=== PATIENT | female | born 1950 | race Caucasian/White ===

== ENCOUNTER 2016-04-21 08:47 | Inpatient (IN) | payer BC, MEDICARE ==
[~2016-04-21] VITALS: Ht 165.1 cm; Wt 92.0 kg
[2016-04-21] MEDS ORDERED: SOD CHLORIDE 0.9% 500 ML IV STA (09:07)
--- NOTE | 2016-04-21 09:35 | RADRPT ---
PROCEDURE: XR Chest. CLINICAL INDICATION: Chest pain TECHNIQUE: Single frontal view of the chest was obtained COMPARISON: 02/05/16 FINDINGS: The study is limited due to patient rotation. There is a tracheostomy tube in place. The heart is enlarged. The thoracic aorta is calcified. The lungs are clear. There is no pleural effusion or pneumothorax. RPTAT: AA IMPRESSION: Mild cardiomegaly. Calcified aorta consistent with atherosclerotic disease. Limited study. .Josh Beckford MD, MD Date Time Electronically viewed and signed by .Josh Beckford MD, on 04/21/2016 09:35 .S/
[2016-04-21 09:54] LABS: ALBUMIN 3.7 g/dl (3.3-4.9); CHLORIDE 95 mmol/L (97-110); POTASSIUM 5.2 mmol/L (3.5-5.1); SODIUM 138 mmol/L (135-144)
[2016-04-21 09:55] LABS: BASOPHIL # 0.1 10^3/ul (0.0-0.1); BASOPHILS % 0.7 % (0.0-2.0); EOSINOPHILS # 1.3 10^3/ul (0.0-0.5); EOSINOPHILS % 11.5 % (0.0-7.0); HEMATOCRIT 26.3 % (37.0-47.0); HEMOGLOBIN 8.9 g/dl (12.0-16.0); LYMPHOCYTES # 2.7 10^3/ul (0.8-2.9); LYMPHOCYTES % 24.2 % (15.0-51.0); MEAN CORPUSCULAR HEMOGLOBIN 31.6 pg (29.0-33.0); MEAN CORPUSCULAR HGB CONC 33.8 g/dl (32.0-37.0); MEAN CORPUSCULAR VOLUME 93.6 fl (82.0-101.0); MEAN PLATELET VOLUME 7.7 fl (7.4-10.4); MONOCYTE # 1.2 10^3/ul (0.3-0.9); MONOCYTES % 10.5 % (0.0-11.0); NEUTROPHIL # 5.9 10^3/ul (1.6-7.5); NEUTROPHILS % 53.1 % (39.0-77.0); PLATELET COUNT 345 10^3/UL (140-440); RED BLOOD COUNT 2.81 10^6/ul (4.20-5.40); RED CELL DISTRIBUTION WIDTH 20.9 % (11.5-14.5); UNCORRECTED WBC 11.1 10^3/ul (4.8-10.8); WHITE BLOOD COUNT 11.1 10^3/ul (4.8-10.8)
[2016-04-21 09:56] LABS: ANION GAP 15 (8-16); BILIRUBIN,INDIRECT 0.2 mg/dl (0-1.1); BILIRUBIN,TOTAL 0.2 mg/dl (0.2-1.3); CARBON DIOXIDE 33 mmol/L (21-31); CREATININE 1.26 mg/dl (0.44-1.00)
[2016-04-21 09:57] LABS: ALANINE AMINOTRANSFERASE 42 IU/L (13-69); ALBUMIN/GLOBULIN RATIO 1.15; ALKALINE PHOSPHATASE 71 IU/L (42-121); ASPARTATE AMINO TRANSFERASE 29 IU/L (15-46); BLOOD UREA NITROGEN 45 mg/dl (7-20); CALCIUM 9.6 mg/dl (8.4-10.2); GLUCOSE 125 mg/dl (70-220); INR 0.92; PROTIME 12.4 Sec (12.2-14.2); TOTAL PROTEIN 6.9 g/dl (6.1-8.1)
[2016-04-21 09:58] LABS: CONDITION 1; LH ANALYZER COMMENTS 1
[2016-04-21 10:09] LABS: TROPONIN-I < 0.012 ng/ml (0.00-0.12)
[2016-04-21 10:13] LABS: ADD UMIC NO; URINE BILIRUBIN (Dip) NEGATIVE (NEGATIVE); URINE BLOOD (Dip) NEGATIVE (NEGATIVE); URINE COLOR LT. YELLOW (YELLOW); URINE GLUCOSE (Dip) NEGATIVE (NEGATIVE); URINE KETONES (Dip) NEGATIVE (NEGATIVE); URINE LEUKOCYTE ESTERASE (Dip) NEGATIVE (NEGATIVE); URINE NITRITE (Dip) NEGATIVE (NEGATIVE); URINE TOTAL PROTEIN (Dip) NEGATIVE (NEGATIVE); URINE UROBILINOGEN (Dip) 0.2 E.U./dL (0.1-1.0)
[2016-04-21] MEDS ORDERED: CARV6.2579 GTB (10:24)
[2016-04-21] MEDS ORDERED: CLON0.5T4 GTB (10:30)
[2016-04-21] MEDS ORDERED: DOCU-159 GTB (10:33)
[2016-04-21] MEDS ORDERED: CLON-379 GTB (10:33)
[2016-04-21] MEDS ORDERED: IPRA3AMP INHALATION (10:34)
[2016-04-21] MEDS ORDERED: ENOX120D8 SQ (10:35)
[2016-04-21] MEDS ORDERED: FAMO20TA18 GTB (10:36)
[2016-04-21] MEDS ORDERED: [UNRECOGNIZED DRUG - CODE] TD (10:37)
[2016-04-21] MEDS ORDERED: UDFER GTB (10:38)
[2016-04-21] MEDS ORDERED: GLUC1VIA6 IJ (10:39)
[2016-04-21] MEDS ORDERED: NPH,100V SQ (10:42)
[2016-04-21] MEDS ORDERED: INSU100V3 IJ (10:43)
[2016-04-21] MEDS ORDERED: LACT1CAP57 GTB (10:44)
[2016-04-21] MEDS ORDERED: LANS30CA GTB (10:44)
[2016-04-21] MEDS ORDERED: LINA5TAB GTB (10:45)
[2016-04-21] MEDS ORDERED: LISI-313 GTB (10:46)
[2016-04-21] MEDS ORDERED: LORA1TAB GTB (10:46)
[2016-04-21] MEDS ORDERED: METF500T4 GTB (10:47)
[2016-04-21] MEDS ORDERED: METO10TA92 GTB (10:48)
[2016-04-21] MEDS ORDERED: MULT9LIQ4 GTB (10:50)
[2016-04-21] MEDS ORDERED: HYDR-902 GTB (10:53)
[2016-04-21] MEDS ORDERED: NITR0.4T6 SL (10:53)
[2016-04-21] MEDS ORDERED: CHLO473M4 MM (10:54)
[2016-04-21] MEDS ORDERED: QUET25TA33 GTB (10:54)
[2016-04-21] MEDS ORDERED: SPIR100T31 GTB (10:55)
--- NOTE | 2016-04-21 11:02 | ERA ---
ER Documentation Chief Complaint Date/Time DATE: 04/21/16 TIME: 10:53 Chief Complaint labwork request for transfusion HPI 65-year-old woman with multiple medical conditions brought in by EMS from group home facility for recent dehydration and worsening anemia, suspicion was for upper gastrointestinal bleeding as she does have a history of gastritis and gastroesophageal reflux disease. She has had no fevers or chills, no vomiting or diarrhea. HPI was limited as patient was nonverbal, supplemented by reviewing past medical records, reviewing correction records, speaking to EMS, and nursing staff ROS All systems reviewed and are negative except as per history of present illness. Medications Home Meds Reported Medications Nitroglycerin* (Nitroglycerin* SL) 0.4 Mg Tab.subl, 0.4 MG SL Q5MIN Y for CHEST PAIN, BOTTLE 04/21/16 Multivit &Minerals/Ferrous Fum (MULTIVITAMIN LIQUID) 9 Mg/15 Ml Liquid, 30 ML GTB DAILY 04/21/16 Metoclopramide* (Reglan*) 10 Mg Tablet, 10 MG GTB Q6 Y for NAUSEA AND/OR VOMITING, TAB 04/21/16 Metformin* (Glucophage*) 500 Mg Tab, 1000 MG GTB BID, #30 TAB 04/21/16 Lorazepam* (Lorazepam*) 1 Mg Tablet, 1 MG GTB Q2HWA Y for ANXIETY, #30 TAB 04/21/16 Lisinopril* (Lisinopril*) 5 Mg Tablet, 5 MG GTB DAILY, #30 TAB HOLD IF SBP<110 OR HR<60 04/21/16 Linagliptin (TRADJENTA) 5 Mg Tablet, 5 MG GTB DAILY, TAB 04/21/16 Lansoprazole* (Lansoprazole*) 30 Mg Capsule.dr, 30 MG GTB DAILY, CAP 04/21/16 Lactobacillus Rhamnosus* (Culturelle*) 1 Each Cap.sprink, 1 CAP GTB BID, CAP 04/21/16 Insulin Regular, Human (Humulin R) 100 Unit/1 Ml Vial, 0-12 UNIT IJ BID WITH MEALS, VIAL 04/21/16 Insulin NPH Human Isophane (Humulin N) 100 Unit/1 Ml Vial, 18 UNIT SQ BID, VIAL 04/21/16 Glucagon HCl (Glucagon HCl) 1 Mg Vial, 1 MG IJ DAILY Y for LOW GLUCOSE, VIAL 04/21/16 Ferrous Sulfate (Ferrous Sulfate) 300 Mg/5 Ml Liquid, 330 MG GTB BID 04/21/16 Fentanyl Patch* (Duragesic Patch*) 50 Mcg/Hr Transdermal Patch, 1 PATCH TD Q72H , PATCH 04/21/16 Famotidine* (Famotidine*) 20 Mg Tablet, 20 MG GTB BID, #60 TAB 04/21/16 Enoxaparin Sodium* (Lovenox*) 120 Mg/0.8 Ml Disp.syrin, 90 MG SQ BID, SYR 04/21/16 Ipratropium-Albuterol (Ipratropium-Albuterol) 0.5-3 Mg/3 Ml Ampul.neb, 1 VIAL INHALATION Q2HWA Y for WHEEZING AND SOB, #30 VIAL 04/21/16 Docusate Sodium* (Docusate Sodium*) 100 Mg Capsule, 100 MG GTB BID Y for CONSTIPATION, #60 CAP 04/21/16 Clonidine Hcl* (Clonidine Hcl*) 0.1 Mg Tab, 0.1 MG GTB Q6 Y for ELEVATED BLOOD PRESSURE, TAB HOLD IF SBP<110 04/21/16 Clonazepam* (Clonazepam*) 0.5 Mg Tablet, 0.5 MG GTB TID, TAB 04/21/16 Carvedilol* (Carvedilol*) 6.25 Mg Tablet, 6.25 MG GTB BID, #60 TAB 04/21/16 Allergies Allergies: Coded Allergies: codeine (Unverified Allergy, Unknown, 01/17/16) PMhx/Soc Past medical history of chronic encephalopathy, left upper or lower extremity paralysis, dysphagia, tracheostomy and mechanical ventilator dependent, diabetes mellitus, paroxysmal atrial fibrillation, hypertension, obesity, DVT and pulmonary embolism, peptic ulcer disease, chronically bedbound, congestive heart failure and cardiomyopathy History of Surgery: Yes ([facility] 12/2015) Hx Neurological Disorder: No Hx Cardiac Disorders: Yes (HTN,CHF,PAROX A FIB) Hx Psychiatric Problems: No Hx Miscellaneous Medical Probl: Yes (CHRONIC VENT, DM TYPE II) Hx Alcohol Use: No (JENNIFER) Hx Substance Use: No (JENNIFER) Hx Tobacco Use: No (JENNIFER) Smoking Status: Former smoker FmHx Family History: No diabetes Physical Exam Vitals Vital Signs Date Time Temp Pulse Resp B/P Pulse Ox O2 Delivery O2 Flow Rate FiO2 04/21/16 10:41 98.8 85 16 104/63 100 04/21/16 09:11 1 04/21/16 09:01 98.3 84 16 102/73 100 Physical Exam GENERAL: Well-developed, well-nourished woman in no apparent distress, afebrile , eyes closed, mostly unresponsive HEENT: Dry mucous membranes, pale conjunctiva, no cervical spine tenderness or step-off deformities, no goiter, no jaundice or icterus, extraocular movements intact without pain. No submandibular induration, and no pharyngeal erythema NEURO: Patient is able to move her right upper extremity with intention, eyes closed, pupils equal round reactive to light, dense left sided paresis, nonverbal, bedbound CARDIAC: Regular rate and rhythm, no murmurs rubs or gallops LUNGS: Clear bilaterally no wheezing crackles or stridor ABDOMEN: Soft nontender, no guarding, no rigidity, no rebound, no psoas sign no obturator sign. Normoactive bowel sounds SKIN: Warm and dry to touch, no abrasions, contusions, or hematomas, no lacerations, no ecchymosis, no target lesions, and without ulcers EXTREMITIES: No clubbing cyanosis or edema, calves are bilaterally symmetrical, no Homans sign, no popliteal cord sign. Distal pulses equal and bilateral PSYCH: Unable to assess Result Diagram: 04/21/1692404/21/16924 Results 24 hrs Laboratory Tests Test 04/21/16 09:25 04/21/16 09:45 Alanine Aminotransferase (ALT/SGPT) 42IU/L Albumin 3.7g/dl Albumin/Globulin Ratio 1.15 Alkaline Phosphatase 71IU/L Anion Gap 15 Aspartate Amino Transf (AST/SGOT) 29IU/L Basophils # 0.110^3/ul Basophils % 0.7% Blood Morphology Comment Blood Urea Nitrogen 45mg/dl Calcium Level 9.6mg/dl Carbon Dioxide Level 33mmol/L Chloride Level 95mmol/L Creatinine 1.26mg/dl Direct Bilirubin 0.00mg/dl Eosinophils # 1.310^3/ul Eosinophils % 11.5% Globulin 3.20g/dl Glucose Level 125mg/dl Hematocrit 26.3% Hemoglobin 8.9g/dl INR International Normalized Ratio 0.92 Indirect Bilirubin 0.2mg/dl Lipase 45U/L Lymphocytes # 2.710^3/ul Lymphocytes % 24.2% Mean Corpuscular Hemoglobin 31.6pg Mean Corpuscular Hemoglobin Concent 33.8g/dl Mean Corpuscular Volume 93.6fl Mean Platelet Volume 7.7fl Monocytes # 1.210^3/ul Monocytes % 10.5% Neutrophils # 5.910^3/ul Neutrophils % 53.1% Nucleated Red Blood Cells # 0.010^3/ul Nucleated Red Blood Cells % 0.0/100WBC Platelet Count 26360^3/UL Potassium Level 5.2mmol/L Prothrombin Time 12.4Sec Prothrombin Time Ratio 1.0 Red Blood Count 2.8110^6/ul Red Cell Distribution Width 20.9% Sodium Level 138mmol/L Total Bilirubin 0.2mg/dl Total Protein 6.9g/dl Troponin I < 0.012ng/ml White Blood Count 11.110^3/ul Urine Bilirubin NEGATIVE Urine Clarity CLEAR Urine Color LT. YELLOW Urine Glucose NEGATIVE% Urine Hemoglobin NEGATIVE Urine Ketones NEGATIVE Urine Leukocyte Esterase NEGATIVE Urine Nitrite NEGATIVE Urine Specific Carrizozo <=1.005 Urine Total Protein NEGATIVE Urine Urobilinogen 0.2 E.U./dL Urine pH 6.0 Current Medications Medications (Trade) Dose Ordered Sig/Josefina Route PRN Reason Start Time Stop Time Status Last Admin Dose Admin Sodium Chloride (NS) 500 ml @ 500 mls/hr Q1H STAT IV 04/21/16 09:07 04/21/16 10:06 DC 04/21/16 09:38 Procedures/MDM IV line was established patient was placed on athletic monitor rhythm strip revealed a sinus rhythm at about 90 bpm with upright P and T waves. Patient was afebrile. Rivera catheter was placed. I administered 500 cc of normal saline intravenously for dehydration. One view chest x-ray performed, read by me there is a tracheostomy in place, no acute infiltrates, no pneumothorax, no end of the diaphragm. EKG performed, read by me: 90 bpm, normal sinus rhythm, normal axis, no acute ST segment changes, narrow QRS complex, with good R-wave progression in precordial leads. CBC revealed anemia with a hemoglobin of 8.9, electrolytes revealed dehydration with an increased BUN/creatinine ratio of 45/1.3, and hyperkalemia 5.2. Coagulation profile was normal. Urinalysis was negative for infection. I consulted Dr. Suarez, the patient's primary care physician regarding the patient's presentation and symptomatology. Given her level of dehydration and hyperkalemia we will admit the patient, there is also suspicion for gastrointestinal bleeding which may be investigated. Departure Diagnosis: Primary Impression: Dehydration Additional Impressions: Encephalopathy Acute renal failure Qualified Code: N17.9 - Acute renal failure, unspecified acute renal failure type Hyperkalemia Gastrointestinal bleeding, upper Condition: JUAREZ Washington MD Apr 21, 2016 11:02
[2016-04-21 11:34] VITALS: TEMP 98.8
[2016-04-21 13:34] VITALS: BP 106/58; PULSE 85; RESP 20
[2016-04-21 13:37] VITALS: Ht 165.1 cm; Wt 92.0 kg
[2016-04-21] MEDS ORDERED: NITROGLYCERIN (SL) 0.4 MG TAB SL PRN (17:00)
[2016-04-21] MEDS ORDERED: LORAZEPAM 1 MG TAB GTB PRN (17:00)
[2016-04-21] MEDS ORDERED: METOCLOPRAMIDE 10 MG TAB GTB PRN (17:00)
[2016-04-21] MEDS ORDERED: DEXTROSE 50% 50 ML SYRINGE IV PRN ×2 (17:30)
[2016-04-21] MEDS ORDERED: GLUCOSE GEL 15 GRAM TUBE PO PRN ×2 (17:30)
[2016-04-21] MEDS ORDERED: GLUCOSE GEL 15 GRAM TUBE BUCCAL PRN (17:30)
[2016-04-21] MEDS ORDERED: GLUCAGON 1 MG INJ IM PRN (17:30)
[2016-04-21] MEDS: LISINOPRIL 5 MG TAB GTB SCH (18:00)
[2016-04-21] MEDS ORDERED: INSULIN ASPART [NOVOLOG] 3 ML PEN SC SCH (18:00)
[2016-04-21] MEDS: SOD CHLORIDE 0.45% 1,000 ML IV SCH (18:21)
[2016-04-21] MEDS: metFORMIN 500 MG TAB GTB SCH (18:25)
[2016-04-21 19:28] VITALS: BP 105/55; RESP 16
[2016-04-21] MEDS: LACTOBACILLUS RHAMNOSUS CAP GTB SCH (20:31)
[2016-04-21] MEDS: FERROUS SULFATE 60 MG/ML 5ML CUP GTB SCH (20:31)
[2016-04-21] MEDS: clonAZEPAM 0.5 MG TAB GTB SCH (20:31)
[2016-04-21] MEDS: QUETIAPINE 25 MG TAB GTB SCH (20:31)
[2016-04-21] MEDS: CHLORHEXIDINE GLUCONATE 15 ML UD CUP MM SCH (20:31)
[2016-04-21] MEDS: INSULIN ASPART [NOVOLOG] 3 ML PEN SC SCH (20:45)
[2016-04-21] MEDS ORDERED: FAMOTIDINE 20 MG TAB GTB SCH (21:00)
[2016-04-21] MEDS: [UNRECOGNIZED DRUG - REMARK] XX SCH (21:30)
[2016-04-21] MEDS ORDERED: NA POLYST SULFON 15 GM/60 ML BTL PO ONE (22:30)
--- NOTE | 2016-04-21 22:44 | HP ---
Date/Time of Note Date/Time of Note DATE: 04/21/16 TIME: 22:27 Assessment/Plan VTE Prophylaxis VTE Prophylaxis Intervention: SCD's Lines/Catheters IV Catheter Type (from Nrsg): Peripheral IV Urinary Cath still in place: Yes Reason Cath still needed: urinary retention Assessment/Plan Assessment/Plan Dehydration - IVF ns at 80 cc/hr Encephalopathy- no acute issues Acute renal failure - IVF - am labs - will get nephrology consult if not improved Hyperkalemia - Kayexalate 15 gm via GT X 1 - dc Spironolactone - am labs Upper Gastrointestinal bleeding- none reported at present - GI consult is appreciated- Dr Dowd notified - Lovenox held sec to upper GI bleed Anemia sec to Upper GI bleed Vent dependent Respiratoty failure - pulmonary consult appreciated- Dr Mcbride office notified Diabetes Mellitus - Glycemic control - diabetic tube feeding - dietary consult - family living educator consult - Hb AIC am Multiple wounds - dietary consult CVA Cardiomyopathy - will get ECHO in am Hypertension Hx DVT - SCD for DVT for prophylaxis PLAN: Admit to tele Resume transfer meds Will order ECHO to check cardiac profusion SCD for DVT for prophylaxis Pepcid for GI prophylaxis DW dR Phan HPI/ROS Admit Date/Time Admit Date/Time Apr 21, 2016 at 10:39 Hx of Present Illness labwork request for transfusion HPI 65-year-old woman with multiple medical conditions brought in by EMS from [facility] facility for recent dehydration and worsening anemia, suspicion was for upper gastrointestinal bleeding as she does have a history of gastritis and gastroesophageal reflux disease. She has had no fevers or chills, no vomiting or diarrhea. HPI was limited as patient was nonverbal, supplemented by reviewing past medical records, reviewing prison records, speaking to EMS, and nursing staff ROS All systems reviewed and are negative except as per history of present illness. Medications Home Meds Reported Medications Nitroglycerin* (Nitroglycerin* SL) 0.4 Mg Tab.subl, 0.4 MG SL Q5MIN Y for CHEST PAIN, BOTTLE 04/21/16 Multivit &Minerals/Ferrous Fum (MULTIVITAMIN LIQUID) 9 Mg/15 Ml Liquid, 30 ML GTB DAILY 04/21/16 Metoclopramide* (Reglan*) 10 Mg Tablet, 10 MG GTB Q6 Y for NAUSEA AND/OR VOMITING, TAB 04/21/16 Metformin* (Glucophage*) 500 Mg Tab, 1000 MG GTB BID, #30 TAB 04/21/16 Lorazepam* (Lorazepam*) 1 Mg Tablet, 1 MG GTB Q2HWA Y for ANXIETY, #30 TAB 04/21/16 Lisinopril* (Lisinopril*) 5 Mg Tablet, 5 MG GTB DAILY, #30 TAB HOLD IF SBP<110 OR HR<60 04/21/16 Linagliptin (TRADJENTA) 5 Mg Tablet, 5 MG GTB DAILY, TAB 04/21/16 Lansoprazole* (Lansoprazole*) 30 Mg Capsule.dr, 30 MG GTB DAILY, CAP 04/21/16 Lactobacillus Rhamnosus* (Culturelle*) 1 Each Cap.sprink, 1 CAP GTB BID, CAP 04/21/16 Insulin Regular, Human (Humulin R) 100 Unit/1 Ml Vial, 0-12 UNIT IJ BID WITH MEALS, VIAL 04/21/16 Insulin NPH Human Isophane (Humulin N) 100 Unit/1 Ml Vial, 18 UNIT SQ BID, VIAL 04/21/16 Glucagon HCl (Glucagon HCl) 1 Mg Vial, 1 MG IJ DAILY Y for LOW GLUCOSE, VIAL 04/21/16 Ferrous Sulfate (Ferrous Sulfate) 300 Mg/5 Ml Liquid, 330 MG GTB BID 04/21/16 Fentanyl Patch* (Duragesic Patch*) 50 Mcg/Hr Transdermal Patch, 1 PATCH TD Q72H , PATCH 04/21/16 Famotidine* (Famotidine*) 20 Mg Tablet, 20 MG GTB BID, #60 TAB 04/21/16 Enoxaparin Sodium* (Lovenox*) 120 Mg/0.8 Ml Disp.syrin, 90 MG SQ BID, SYR 04/21/16 Ipratropium-Albuterol (Ipratropium-Albuterol) 0.5-3 Mg/3 Ml Ampul.neb, 1 VIAL INHALATION Q2HWA Y for WHEEZING AND SOB, #30 VIAL 04/21/16 Docusate Sodium* (Docusate Sodium*) 100 Mg Capsule, 100 MG GTB BID Y for CONSTIPATION, #60 CAP 04/21/16 Clonidine Hcl* (Clonidine Hcl*) 0.1 Mg Tab, 0.1 MG GTB Q6 Y for ELEVATED BLOOD PRESSURE, TAB HOLD IF SBP<110 04/21/16 Clonazepam* (Clonazepam*) 0.5 Mg Tablet, 0.5 MG GTB TID, TAB 04/21/16 Carvedilol* (Carvedilol*) 6.25 Mg Tablet, 6.25 MG GTB BID, #60 TAB 04/21/16 Allergies Allergies: Coded Allergies: codeine (Unverified Allergy, Unknown, 01/17/16) PMH/Family/Social Past Medical History PMhx/Soc Past medical history of chronic encephalopathy, left upper or lower extremity paralysis, dysphagia, tracheostomy and mechanical ventilator dependent, diabetes mellitus, paroxysmal atrial fibrillation, hypertension, obesity, DVT and pulmonary embolism, peptic ulcer disease, chronically bedbound, congestive heart failure and cardiomyopathy History of Surgery: Yes ([facility]UE 12/2015) Hx Neurological Disorder: No Hx Cardiac Disorders: Yes (HTN,CHF,PAROX A FIB) Hx Psychiatric Problems: No Hx Miscellaneous Medical Probl: Yes (CHRONIC VENT, DM TYPE II) Hx Alcohol Use: No (JENNIFER) Hx Substance Use: No (JENNIFER) Hx Tobacco Use: No (JENNIFER) Smoking Status: Former smoker FmHx Family History: No diabetes Past Surgical History Past Surgical Hx: other Social History Smoking Status: Former smoker Exam/Review of Systems Vital Signs Vitals Vital Signs Date Time Temp Pulse Resp B/P Pulse Ox O2 Delivery O2 Flow Rate FiO2 04/21/16 21:15 99 5.0 28 04/21/16 21:00 93 20 T Tube 04/21/16 19:28 97.8 105/55 Exam Constitutional: non-verbal Eyes: nl sclera ENMT: nl external ears & nose Neck: non-tender Respiratory: diminished breath sounds Cardiovascular: nl pulses Gastrointestinal: non-tender, other, soft Musculoskeletal: nl extremities to inspection Extremities: normal pulses Neurological: lethargic Labs Result Diagram: 04/21/1692404/21/16924 Medications Medications Current Medications Carvedilol (Coreg) 6.25 mg BID GTB Last administered on 04/21/16 20:32; Admin Dose 6.25 MG; Start 04/21/16 at 21:00 Chlorhexidine Gluconate (Peridex) 15 ml Q12 MM Last administered on 04/21/16 20:31; Admin Dose 15 ML; Start 04/21/16 at 21:00 Clonazepam (Klonopin) 0.5 mg TID GTB Last administered on 04/21/16 20:31; Admin Dose 0.5 MG; Start 04/21/16 at 21:00 Clonidine (Catapres) 0.1 mg Q6 PRN GTB ELEVATED BLOOD PRESSURE; Start 04/21/16 at 17:00 Famotidine (Pepcid) 20 mg BID GTB Last administered on 04/21/16 20:31; Admin Dose 20 MG; Start 04/21/16 at 21:00 Fentanyl (Duragesic 50 Mcg/Hr Patch) 1 patch Q72H TRANSDERM ; Start 04/23/16 at 21:00 Ferrous Sulfate (Feosol Liquid Cup) 330 mg BID GTB Last administered on 20:31; Admin Dose 330 MG; Start 04/21/16 at 21:00 Lactobacillus Acidophilus/ Rhamnosus (Culturelle) 1 cap BID GTB Last administered on 04/21/16 20:31; Admin Dose 1 CAP; Start 04/21/16 at 21:00 Lansoprazole (Prevacid) 30 mg DAILY GTB ; Start 04/22/16 at 09:00 Lisinopril (Zestril) 5 mg DAILY GTB ; Start 04/21/16 at 18:00 Lorazepam (Ativan) 1 mg Q2HWA PRN GTB ANXIETY; Start 04/21/16 at 17:00 Metoclopramide HCl (Reglan) 10 mg Q6 PRN GTB NAUSEA AND/OR VOMITING; Start 03/26 at 17:00 Nitroglycerin (Nitroglycerin (Sl Tab) 0.4 Mg) 0.4 tab PRN PRN SL CHEST PAIN; Start 04/21/16 at 17:00 Quetiapine Fumarate (Seroquel) 12.5 mg BID GTB Last administered on 04/21/16 20:31; Admin Dose 12.5 MG; Start 04/21/16 at 21:00 Multivitamins 5 ml 5 ml DAILY GTB ; Start 04/22/16 at 09:00 Sodium Chloride (1/2 NS) 1,000 ml @ 80 mls/hr [id number] IV Last administered on 04/21/16 18:21; Admin Dose 80 MLS/HR; Start 04/21/16 at 17:30 Insulin Aspart (Novolog Insulin Pen) 18 unit BID SC Last administered on t 20:45; Admin Dose 18 UNIT; Start 04/21/16 at 21:00 Miscellaneous Information 1 ea NOTE XX ; Start 04/21/16 at 17:30 Glucose (Glutose) 15 gm Q15M PRN PO DECREASED GLUCOSE; Start 04/21/16 at 17:30 Glucose (Glutose) 22.5 gm Q15M PRN PO DECREASED GLUCOSE; Start 04/21/16 at 17: 30 Dextrose (D50w Syringe) 25 ml Q15M PRN IV DECREASED GLUCOSE; Start 04/21/16 at 17:30 Dextrose (D50w Syringe) 50 ml Q15M PRN IV DECREASED GLUCOSE; Start 04/21/16 at 17:30 Glucagon (Glucagen) 1 mg Q15M PRN IM DECREASED GLUCOSE; Start 04/21/16 at 17:30 Glucose (Glutose) 15 gm Q15M PRN BUCCAL DECREASED GLUCOSE; Start 04/21/16 at 17 :30 Insulin Aspart (Novolog Insulin Pen) (Adult SC Insulin - Mild Algorithm)... Q6 SC ; Start 04/22/16 at 00:00 Miscellaneous Information (*Order Clarification Bulletin) MEDICATION REQUIRES CLARIFICATI... Q8H XX ; Start 04/21/16 at 21:30 Sodium Polystyrene Sulfonate (Kayexalate) 15 gm ONCE ONCE PO ; Start 04/21/16 at 22:30; Stop 04/21/16 at 22:31; Status UNV Procedures Procedures 1. chest x-ray performed, read by me there is a tracheostomy in place, no acute infiltrates, no pneumothorax, no end of the diaphragm. 2. EKG performed, read by me: 90 bpm, normal sinus rhythm, normal axis, no acute ST segment changes, narrow QRS complex, with good R-wave progression in precordial leads. 3. CBC revealed anemia with a hemoglobin of 8.9, 4. BMP- electrolytes revealed dehydration with an increased BUN/creatinine ratio of 45/1.3, and 4. hyperkalemia 5.2. 5. Coagulation profile was normal. 6. Urinalysis was negative for infection. JUAN POSADA Apr 21, 2016 22:39
[2016-04-21] MEDS ORDERED: PANTOPRAZOLE 40 MG INJ IV ONE (23:00)
[2016-04-22] MEDS ORDERED: INSULIN ASPART [NOVOLOG] 3 ML PEN SC SCH
[2016-04-22] MEDS: Insulin NOVOLOG SS MILD Algorithm (NPO/TPN/ENTERAL FEEDS) SC SCH ×5 (01:03→23:51)
[2016-04-22] MEDS: ALBUTEROL/IPRATROPIUM (NEB) 3 ML AMP NEB PRN (01:47)
[2016-04-22] MEDS ORDERED: ACCUCHECK XX SCH (02:00)
[2016-04-22] MEDS: PANTOPRAZOLE 40 MG INJ IV SCH (05:29)
[2016-04-22] MEDS: SOD CHLORIDE 0.45% 1,000 ML IV SCH ×3 (05:30→17:30)
[2016-04-22] MEDS: [UNRECOGNIZED DRUG - REMARK] XX SCH (05:39)
[2016-04-22 06:56] LABS: BASOPHIL # 0.1 10^3/ul (0.0-0.1); BASOPHILS % 0.7 % (0.0-2.0); EOSINOPHILS # 1.5 10^3/ul (0.0-0.5); EOSINOPHILS % 13.4 % (0.0-7.0); HEMOGLOBIN 8.6 g/dl (12.0-16.0); LYMPHOCYTES # 3.2 10^3/ul (0.8-2.9); LYMPHOCYTES % 29.3 % (15.0-51.0); MEAN CORPUSCULAR HEMOGLOBIN 32.2 pg (29.0-33.0); MEAN CORPUSCULAR HGB CONC 34.3 g/dl (32.0-37.0); MEAN PLATELET VOLUME 8.1 fl (7.4-10.4); MONOCYTE # 1.2 10^3/ul (0.3-0.9); MONOCYTES % 10.8 % (0.0-11.0); NEUTROPHILS % 45.8 % (39.0-77.0); PLATELET COUNT 314 10^3/UL (140-440); RED BLOOD COUNT 2.66 10^6/ul (4.20-5.40); RED CELL DISTRIBUTION WIDTH 21.1 % (11.5-14.5); UNCORRECTED WBC 10.9 10^3/ul (4.8-10.8); WHITE BLOOD COUNT 10.9 10^3/ul (4.8-10.8)
[2016-04-22 07:05] LABS: IRON 57 ug/dl (35-150)
[2016-04-22 07:15] LABS: TOTAL IRON BINDING CAPACITY 350 ug/dl (241-421)
[2016-04-22 07:16] LABS: POTASSIUM 4.4 mmol/L (3.5-5.1)
[2016-04-22 07:18] LABS: CREATININE 0.98 mg/dl (0.44-1.00)
[2016-04-22 07:19] LABS: CALCIUM 8.9 mg/dl (8.4-10.2)
[2016-04-22 07:24] LABS: CONDITION 1; LH ANALYZER COMMENTS 1
[2016-04-22 07:43] VITALS: BP 115/62; RESP 18
--- NOTE | 2016-04-22 07:54 | CONS ---
DATE OF ADMISSION: 04/21/2016 DATE OF CONSULTATION: TYPE OF CONSULTATION: Gastroenterology. REFERRING PHYSICIAN: Dr. Josr Suarez: Thank you for your kind referral. HISTORY OF PRESENT ILLNESS: The patient is a 65-year-old female brought to the emergency room for d ehydration and worsening of anemia. Patient denies any abdominal pain. No fever, no chills, no ches t pain, shortness of breath. She denies GI bleeding. Again, her history is not reliable. PAST MEDICAL HISTORY: Includes diabetes mellitus, multiple wounds, CVA, cardiomyopathy, hypertensio n, CVA, chronic encephalopathy, vent dependent respiratory failure, dysphagia, has got a G tube, par oxysmal atrial fibrillation, obesity, DVT and pulmonary embolism, peptic ulcer disease and bedbound and cardiomyopathy. SOCIAL HISTORY: She does not smoke or drink. HOME MEDICATIONS: She is on: 1. Nitroglycerin. 2. Reglan. 3. Metformin. 4. Lorazepam. 5. Lisinopril. 6. Tradjenta. 7. Insulin. 8. Iron tablet. 9. Famotidine 10. Lovenox. 11. Stool softener. 12. Clonazepam. 13. Carvedilol. ALLERGIES: CODEINE. PERSONAL HISTORY: No alcohol. Resident of group home and she is an exsmoker. PHYSICAL EXAMINATION: GENERAL: Alert, awake, not in distress, overweight. HEENT: Unremarkable. NECK: Supple, no thyromegaly, no lymphadenopathy. She has got a tracheostomy tube. ABDOMEN: Totally benign. Has got a G-tube which is in place. EXTREMITIES: No edema. TERRITORY REPRESENTATIVE: Appears to be confused. LABORATORY DATA: BUN was mildly elevated to 45. INR is within normal limits. Liver function tests are within normal limits, hematocrit was 26.3, normochromic normocytic. WBC was 11.1. ASSESSMENT AND PLAN: 1. Anemia, rule out gastrointestinal bleeding, anemia of chronic disease. 2. Diabetes mellitus. 3. Cerebrovascular accident. 4. Vent dependent respiratory failure. 5. Paroxysmal atrial fibrillation. 6. Dysphagia status post G-tube. 7. Hypertension. 8. Renal insufficiency. 9. Multiple wounds. 10. Cardiomyopathy. PLAN: At this point, is to work her up for anemia, judicious use of fluid for hydration and will re view 2D echo for ejection fractions. Will also send stool for occult blood and in the interim, cont inue present care. If there is any overt GI bleeding in the form of melena or rectal bleeding, then we should stop Lovenox and the staff should inform me. Dictated By: INES TORRE MD PJ/NTS Conf#: [id number] DID#: [id number] CC: JOSR SUAREZ MD;*EndCC*
[2016-04-22 08:47] LABS: RETICULOCYTE COUNT % 6.1 % (0.5-1.5)
[2016-04-22] MEDS ORDERED: LANSOPRAZOLE 30 MG CAP GTB SCH (09:00)
[2016-04-22] MEDS ORDERED: SPIRONOLACTONE 25 MG TAB GTB SCH (09:00)
[2016-04-22] MEDS ORDERED: MULTIVITAMINS/IRON (PO SYG) PO SCH (09:00)
[2016-04-22] MEDS ORDERED: SPIRONOLACTONE 50 MG TAB GTB SCH (09:00)
[2016-04-22] MEDS: FERROUS SULFATE 60 MG/ML 5ML CUP GTB SCH ×2 (09:55→21:00)
[2016-04-22] MEDS: LACTOBACILLUS RHAMNOSUS CAP GTB SCH ×2 (09:56→21:01)
[2016-04-22] MEDS: CHLORHEXIDINE GLUCONATE 15 ML UD CUP MM SCH ×2 (09:56→21:00)
[2016-04-22] MEDS: clonAZEPAM 0.5 MG TAB GTB SCH ×3 (09:56→21:01)
[2016-04-22] MEDS: LISINOPRIL 5 MG TAB GTB SCH (09:57)
[2016-04-22] MEDS: QUETIAPINE 25 MG TAB GTB SCH ×2 (09:57→21:01)
[2016-04-22] MEDS: metFORMIN 500 MG TAB GTB SCH ×2 (09:58→17:46)
[2016-04-22] MEDS: INSULIN ASPART [NOVOLOG] 3 ML PEN SC SCH ×2 (10:01→21:09)
[2016-04-22] MEDS: MULTIVITAMINS 5 ML CUP GTB SCH (10:16)
[2016-04-22 11:03] LABS: FOLATE > 20.0 ng/ml (2.8-20.0)
--- NOTE | 2016-04-22 11:49 | CONS ---
Date/Time of Note Date/Time of Note DATE: 04/22/16 TIME: 11:48 Assessment/Plan Assessment/Plan Additional Assessment/Plan ASSESSMENT AND PLAN: 1. Anemia, rule out gastrointestinal bleeding, anemia of chronic disease.retic count high 2. Diabetes mellitus. 3. Cerebrovascular accident. 4. Vent dependent respiratory failure. 5. Paroxysmal atrial fibrillation. 6. Dysphagia status post G-tube. 7. Hypertension. 8. Renal insufficiency. 9. Multiple wounds. 10. Cardiomyopathy. Plan awaiting for occult blood. continue PPI Consultation Date/Type/Reason Admit Date/Time Apr 21, 2016 at 10:39 Initial Consult Date 24 HR Interval Summary Constitutional: no complaints Exam/Review of Systems Vital Signs Vitals Vital Signs Date Time Temp Pulse Resp B/P Pulse Ox O2 Delivery O2 Flow Rate FiO2 04/22/16 09:10 8.0 35 04/22/16 09:10 99 24 95 Aerosol T Tube 04/22/16 07:43 98.6 115/62 Intake and Output 04/21/16 04/21/16 04/22/16 15:00 23:00 07:00 Intake Total 500 ml 1800 ml Output Total 1800 ml 400 ml Balance 500 ml -1800 ml 1400 ml Exam Constitutional: alert, oriented, well developed Psych: nl mood/affect, no complaints Head: atraumatic, normocephalic Eyes: EOMI, PERRL, nl conjunctiva, nl lids, nl sclera ENMT: nl external ears & nose, nl lips & teeth, nl nasal mucosa & septum Neck: non-tender, supple Respiratory: clear to auscultation, normal air movement Cardiovascular: nl pulses, regular rate and rhythm Gastrointestinal: nl liver, spleen, non-tender, soft Musculoskeletal: nl extremities to inspection, nl gait and stance Extremities: normal pulses 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, nl mental status, nl speech, nl strength Skin: nl turgor, No rash or lesions Lymph: nl lymph nodes Results Result Diagram: 04/22/16 0530 04/22/16 0530 Results 24 hrs Laboratory Tests Test 04/21/16 15:14 04/21/16 18:25 04/21/16 20:40 04/22/16 00:58 Bedside Glucose 179 195 183 153 Test 04/22/16 05:30 04/22/16 05:32 04/22/16 09:53 Absolute Reticulocyte Count 0.163 H Anion Gap 18 H Basophils # 0.1 Basophils % 0.7 Blood Morphology Comment Blood Urea Nitrogen 36 H Calcium Level 8.9 Carbon Dioxide Level 27 Chloride Level 99 Creatinine 0.98 Eosinophils # 1.5 H Eosinophils % 13.4 H Ferritin 87.0 Folate > 20.0 H Glucose Level 170 Hematocrit 25.0 L Hemoglobin 8.6 L Hemoglobin A1c 5.7 Iron Level 57 Lymphocytes # 3.2 H Lymphocytes % 29.3 Mean Corpuscular Hemoglobin 32.2 Mean Corpuscular Hemoglobin Concent 34.3 Mean Corpuscular Volume 94.0 Mean Platelet Volume 8.1 Monocytes # 1.2 H Monocytes % 10.8 Neutrophils # 5.0 Neutrophils % 45.8 Nucleated Red Blood Cells # 0.0 Nucleated Red Blood Cells % 0.0 Percent Iron Saturation 16 L Percent Reticulocyte Count 6.1 H Platelet Count 314 Potassium Level 4.4 Red Blood Count 2.66 L Red Cell Distribution Width 21.1 H Sodium Level 140 Total Iron Binding Capacity 350 Vitamin B12 Level 822 White Blood Count 10.9 H Bedside Glucose 216 232 H Medications Medications Current Medications Carvedilol (Coreg) 6.25 mg BID GTB Last administered on 04/22/16 09:57; Admin Dose 6.25 MG; Start 04/21/16 at 21:00 Chlorhexidine Gluconate (Peridex) 15 ml Q12 MM Last administered on 04/22/16 09:56; Admin Dose 15 ML; Start 04/21/16 at 21:00 Clonazepam (Klonopin) 0.5 mg TID GTB Last administered on 04/22/16 09:56; Admin Dose 0.5 MG; Start 04/21/16 at 21:00 Clonidine (Catapres) 0.1 mg Q6 PRN GTB ELEVATED BLOOD PRESSURE; Start 04/21/16 at 17:00 Fentanyl (Duragesic 50 Mcg/Hr Patch) 1 patch Q72H TRANSDERM ; Start 04/23/16 at 21:00 Ferrous Sulfate (Feosol Liquid Cup) 330 mg BID GTB Last administered on 09:55; Admin Dose 330 MG; Start 04/21/16 at 21:00 Lactobacillus Acidophilus/ Rhamnosus (Culturelle) 1 cap BID GTB Last administered on 04/22/16 09:56; Admin Dose 1 CAP; Start 04/21/16 at 21:00 Lisinopril (Zestril) 5 mg DAILY GTB Last administered on 04/22/16 09:57; Admin Dose 5 MG; Start 04/21/16 at 18:00 Lorazepam (Ativan) 1 mg Q2HWA PRN GTB ANXIETY; Start 04/21/16 at 17:00 Metoclopramide HCl (Reglan) 10 mg Q6 PRN GTB NAUSEA AND/OR VOMITING; Start 03/26 at 17:00 Nitroglycerin (Nitroglycerin (Sl Tab) 0.4 Mg) 0.4 tab PRN PRN SL CHEST PAIN; Start 04/21/16 at 17:00 Quetiapine Fumarate (Seroquel) 12.5 mg BID GTB Last administered on 04/22/16 09:57; Admin Dose 12.5 MG; Start 04/21/16 at 21:00 Multivitamins 5 ml 5 ml DAILY GTB Last administered on 04/22/16 10:16; Admin Dose 5 ML; Start 04/22/16 at 09:00 Sodium Chloride (1/2 NS) 1,000 ml @ 80 mls/hr [id number] IV Last administered on 04/22/16 10:25; Admin Dose 80 MLS/HR; Start 04/21/16 at 17:30 Insulin Aspart (Novolog Insulin Pen) 18 unit BID SC Last administered on 10:01; Admin Dose 18 UNIT; Start 04/21/16 at 21:00 Miscellaneous Information 1 ea NOTE XX ; Start 04/21/16 at 17:30 Glucose (Glutose) 15 gm Q15M PRN PO DECREASED GLUCOSE; Start 04/21/16 at 17:30 Glucose (Glutose) 22.5 gm Q15M PRN PO DECREASED GLUCOSE; Start 04/21/16 at 17: 30 Dextrose (D50w Syringe) 25 ml Q15M PRN IV DECREASED GLUCOSE; Start 04/21/16 at 17:30 Dextrose (D50w Syringe) 50 ml Q15M PRN IV DECREASED GLUCOSE; Start 04/21/16 at 17:30 Glucagon (Glucagen) 1 mg Q15M PRN IM DECREASED GLUCOSE; Start 04/21/16 at 17:30 Glucose (Glutose) 15 gm Q15M PRN BUCCAL DECREASED GLUCOSE; Start 04/21/16 at 17 :30 Insulin Aspart (Novolog Insulin Pen) (Adult SC Insulin - Mild Algorithm)... Q6 SC Last administered on 04/22/16 05:38; Admin Dose 2 UNIT; Start 04/22/16 at 00:00 Pantoprazole (Protonix Iv) 40 mg DAILY@06 IV Last administered on 04/22/16 05: 29; Admin Dose 40 MG; Start 04/22/16 at 06:00 INES TORRE MD Apr 22, 2016 11:49
--- NOTE | 2016-04-22 13:57 | CONS ---
DATE OF ADMISSION: 04/21/2016 DATE OF CONSULTATION: 04/22/2016 TYPE OF CONSULTATION: Pulmonary. REFERRING PHYSICAL: Dr. Suarez. HISTORY OF PRESENT ILLNESS: This is a 65-year-old woman, a resident of a subacute care facility, o was brought in to the emergency room with complaints of severe anemia and a possible gastrointesti nal bleed. The patient has a history of an intracranial bleed, is status post craniotomy. The bebo ent has a history of chronic respiratory failure, tracheostomy dependent, and has significant enceph alopathy. Therefore, unable to provide any information. The patient was noted to be anemic on arri amish. The patient was also noted to be in acute renal failure. The patient was seen by Dr. Nile kaminski GI consultation as well. At present the patient is on 35% FIO2 via tracheostomy and is saturating 99% and does not appear in acute distress. There is no further history available at this time. REVIEW OF SYSTEMS: Unable to obtain. PAST MEDICAL HISTORY: 1. History of chronic respiratory failure, tracheostomy dependent. 2. History of craniotomy. 3. History of hypertension. 4. Congestive heart failure. 5. Paroxysmal atrial fibrillation. 6. Diabetes mellitus type 2. ALLERGIES: CODEINE. SOCIAL HABITS: Resident of a subacute care facility. Reportedly a history of smoking in the past. FAMILY HISTORY: Not available at this time. PHYSICAL EXAMINATION: VITAL SIGNS: Blood pressure 115/62, pulse 108, respirations 18, temperature 98.6. HEENT: Pupils are equal and react to light. Anicteric sclerae. NECK: Supple. No JVD noted. No cervical lymphadenopathy noted. No carotid bruits heard. Tracheo stomy site is clear. LUNGS: A few scattered rhonchi present. CARDIOVASCULAR: S1, S2 normal. ABDOMEN: Soft, nontender. G-tube in place. EXTREMITIES: No clubbing, cyanosis, or edema noted. No discrepancy in size of the calves noted. H omans sign is negative. NEUROLOGICAL: The patient opens her eyes; however, does not follow any verbal commands. LABORATORY: Sodium 138, potassium 5.2, chloride 95, CO2 33, BUN 45, creatinine 1.26, glucose 225. These were done yesterday on admission. Today, chemistry shows sodium 140, potassium 4.4, chloride 9 9, CO2 27, BUN 36, creatinine 0.98, glucose 170. WBC 10.5, hemoglobin 8.6, hematocrit 25, platelets 314. UA is negative. Chest x-ray shows no acute infiltrates. IMPRESSION: A 65-year-old female with: 1. Chronic respiratory failure, tracheostomy dependent. 2. Anemia. Rule out gastrointestinal bleed. 3. Encephalopathy. 4. Acute renal failure. 5. Dehydration. 6. Hyperkalemia. Now resolved. 7. History of diabetes mellitus. 8. History of hypertension. 9. Status post craniotomy. 10. History of congestive heart failure. 11. History of hypertension. 12. Encephalopathy. RECOMMENDATIONS: 1. Check stool for occult blood. 2. Transfuse packed RBC p.r.n. 3. Gastrointestinal evaluation noted. 4. Proton pump inhibitor. 5. Continue tracheostomy care. 6. Oxygen. 7. Followup labs. Dictated By: GUME ELDRIDGE MD, MA/DENNIS Conf#: [id number] DID#: [id number]
--- NOTE | 2016-04-22 14:48 | RADRPT ---
Echocardiogram Report Patient Name: AMBER CAVANAUGH Gender: Female Date: 1950 Study Date: 22-Apr-2016 Brush Clearing Laborer: Ant Jacobo [facility] Location: 629 Ref. Physician: JUAN POSADA Quality: Good Procedures: Transthoracic echocardiogram with complete 2D, M-Mode, and doppler examination. Indications: Anemia. 2D/M Mode Doppler Measurement Value Normal Ranges Measurement Value Normal Ranges LVIDd 2D 4.0 3.5 - 5.6 cm AV Mean Tony 1.7 m/sec LVIDs 2D 2.2 2.1 - 4.1 cm AV Mean PG 15.0 mmHg LVPWd 2D 1.0 0.6 - 1.1 cm AV Peak Tony 2.8 m/sec IVSd 2D 0.9 0.6 - 1.1 cm AV Peak PG 31.1 mmHg AoR Diam 2D 2.8 2.0 - 3.7 cm AV VTI 40.7 cm EDV 2D 68.7 cm3 LVOT Mean Tony 0.7 m/sec ESV 2D 10.7 cm3 LVOT Mean PG 2.4 mmHg LA Dimen 2D 2.8 2.3 - 4.0 cm LVOT Peak Tony 1.1 m/sec LVOT Diam 2.1 cm LVOT Peak PG 4.8 mmHg LVOT VTI 15.8 cm MV E Peak Tony 0.8 m/sec MV A Peak Tony 0.9 m/sec MV E/A 0.8 MV Decel Time 140 msec MV Decel [place] 6 MV E/A 0.8 TR Peak Tony 2.0 m/sec TR Peak PG 15.5 mmHg RVSP 19.0 mmHg Findings Left Ventricle: Normal left ventricular systolic function. Normal left ventricular cavity size. Normal left ventricular wall thickness. Ejection fraction is visually estimated at 55 %. Tissue Doppler/Mitral Doppler indices are consistent with impaired relaxation (Stage I diastolic dysfunction). Right Ventricle: Normal right ventricular size. Normal right ventricular systolic function. Left Atrium: The left atrium is normal in size. Right Atrium: The right atrium is normal in size. Mitral Valve: Mitral valve leaflets appear mildly thickened. Mild mitral annular calcification. Mild mitral valve regurgitation. Aortic Valve: Mild aortic stenosis. Aortic valve Max velocity 2.79 m/sec. Max PG 31.00 mmHg. Mean PG 15.00 mmHg. Aortic valve area 0.00 cm2. Aortic cusps appear moderately calcified. Trace aortic valve regurgitation. Tricuspid Valve: Normal appearance of the tricuspid valve. Estimated peak PA systolic pressure 19 mmHg. There is trace tricuspid regurgitation. Pericardium: Normal pericardium with no significant pericardial effusion. Aorta: Normal aortic root. IVC: Normal size and normal respiratory collapse consistent with normal right atrial pressure. Conclusions Normal left ventricular systolic function. Normal left ventricular cavity size. Normal left ventricular wall thickness. Ejection fraction is visually estimated at 55 %. Tissue Doppler/Mitral Doppler indices are consistent with impaired relaxation (Stage I diastolic dysfunction). Normal right ventricular size. Normal right ventricular systolic function. The left atrium is normal in size. The right atrium is normal in size. Mitral valve leaflets appear mildly thickened. Mild mitral annular calcification. Mild mitral valve regurgitation. Mild aortic stenosis. Aortic valve Max velocity 2.79 m/sec. Max PG 31.00 mmHg. Mean PG 15.00 mmHg. Aortic valve area 0.00 cm2. Aortic cusps appear moderately calcified. Trace aortic valve regurgitation. Normal appearance of the tricuspid valve. Estimated peak PA systolic pressure 19 mmHg. There is trace tricuspid regurgitation. Electronically Signed By: Kassidy Lima 22-Apr-2016 14:47:58 -0800 Patient Name: AMBER CAVANAUGH Study Date: 22-Apr-[id number]
[2016-04-22] MEDS: COLLAGENASE 30 GM TUBE TOP SCH (17:45)
--- NOTE | 2016-04-22 18:07 | PN ---
DATE: 04/22/2016 INTERNAL MEDICINE PROGRESS NOTE SUBJECTIVE: Followup on 65-year-old female with chronic respiratory failure, tracheostomy dependent , anemia, and chronic encephalopathy. The patient is status post cerebrovascular accident, diabetes , renal insufficiency, and dysphagia with G-tube. The patient currently is awake, alert. No nausea or vomiting reported. No fever. The patient is comfortable on a tracheostomy to T-tube with cool aerosol mist. OBJECTIVE: VITAL SIGNS: Temperature is 98.6, pulse is 93, blood pressure is 115/62, respiratory rate is 22, an d oxygen saturation is 95% on 35% FIO2. GENERAL: This is a well-developed, obese female who currently is awake. HEENT: Head is atraumatic, normocephalic. PERRLA. NECK: Supple. No JVD. The patient's tracheostomy is at the base of the neck which is clear. LUNGS: Scattered rhonchi bilaterally, slightly diminished at the bases. HEART: Normal S1, S2. No murmurs, gallops, clicks, rubs noted. ABDOMEN: Round, soft, nondistended, nontender. G-tube in place. EXTREMITIES: No edema. NEUROLOGIC: The patient opens eyes and is awake. LABORATORY AND DATA: Today, CBC: White blood cells 10.9, hemoglobin is 8.6, hematocrit 25.0, plate lets 314. Chemistry: Sodium was 140, potassium 4.4, chloride 99, carbon dioxide 27, anion gap 18, BUN is 36, creatinine 0.98, glucose 170, calcium is 8.9. ASSESSMENT AND PLAN: 1. Anemia. The patient is followed by Dr. Dowd from gastroenterology consultation. We will cont inue Protonix. Stool for OB is negative. The patient has most likely anemia of chronic disease. C ontinue to monitor hemoglobin and hematocrit. 2. Tracheostomy. The patient is followed by Dr. Mcbride's group in pulmonology consultation. Cont inue bronchodilators and oxygen supplementation. 3. Acute kidney injury, resolved. Continue to monitor BUN and creatinine. 4. Dehydration, resolved. Continue IV fluids. Monitor electrolytes. 5. Diabetes mellitus by history. Continue NovoLog and Lantus. 6. Multiple wounds. Continue to follow up wound care recommendations. Continue air mattress and l ocal wound care. 7. Congestive heart failure by history. Continue to monitor intake and output. 8. Chronic encephalopathy with history of craniotomy. We will continue Protonix for peptic ulcer disease prophylaxis and sequential compression device for deep venous thrombosis prophylaxis. Further recommendations based on clinical course. Plan of car e discussed with Dr. Lorenzo. Dictated By: DELIO GUILLERMO STEREOPTIC PROJECTION TOPOGRAPHER for JOSR LORENZO MD SR/NTS Conf#: [id number] DID#: [id number]
[2016-04-22 19:44] VITALS: BP 95/53; RESP 16
[2016-04-22] MEDS: NYSTATIN 30 GM POWDER BTL TOP SCH (21:01)
[2016-04-23] MEDS: SOD CHLORIDE 0.45% 1,000 ML IV SCH ×3 (00:05→12:40)
[2016-04-23 06:11] LABS: POTASSIUM 4.1 mmol/L (3.5-5.1)
[2016-04-23 06:13] LABS: CREATININE 0.78 mg/dl (0.44-1.00)
[2016-04-23 06:14] LABS: CALCIUM 8.5 mg/dl (8.4-10.2)
[2016-04-23 06:21] LABS: BASOPHIL # 0.1 10^3/ul (0.0-0.1); BASOPHILS % 0.6 % (0.0-2.0); EOSINOPHILS # 1.1 10^3/ul (0.0-0.5); HEMATOCRIT 24.9 % (37.0-47.0); HEMOGLOBIN 8.4 g/dl (12.0-16.0); LYMPHOCYTES # 3.3 10^3/ul (0.8-2.9); LYMPHOCYTES % 22.2 % (15.0-51.0); MEAN CORPUSCULAR HEMOGLOBIN 31.8 pg (29.0-33.0); MEAN CORPUSCULAR HGB CONC 33.8 g/dl (32.0-37.0); MEAN CORPUSCULAR VOLUME 94.2 fl (82.0-101.0); MEAN PLATELET VOLUME 8.1 fl (7.4-10.4); MONOCYTE # 1.8 10^3/ul (0.3-0.9); MONOCYTES % 11.9 % (0.0-11.0); NEUTROPHIL # 8.8 10^3/ul (1.6-7.5); NEUTROPHILS % 58.3 % (39.0-77.0); PLATELET COUNT 329 10^3/UL (140-440); RED BLOOD COUNT 2.64 10^6/ul (4.20-5.40); RED CELL DISTRIBUTION WIDTH 20.8 % (11.5-14.5)
[2016-04-23] MEDS: PANTOPRAZOLE 40 MG INJ IV SCH (06:31)
[2016-04-23] MEDS: Insulin NOVOLOG SS MILD Algorithm (NPO/TPN/ENTERAL FEEDS) SC SCH ×3 (06:36→17:37)
[2016-04-23 06:47] LABS: CONDITION 1; LH ANALYZER COMMENTS 1
[2016-04-23 07:33] VITALS: BP 106/57; RESP 20
[2016-04-23] MEDS: CHLORHEXIDINE GLUCONATE 15 ML UD CUP MM SCH ×2 (09:00→21:46)
[2016-04-23] MEDS: NYSTATIN 30 GM POWDER BTL TOP SCH ×2 (09:00→22:02)
[2016-04-23] MEDS: MULTIVITAMINS 5 ML CUP GTB SCH (10:07)
[2016-04-23] MEDS: FERROUS SULFATE 60 MG/ML 5ML CUP GTB SCH ×2 (10:07→21:46)
[2016-04-23] MEDS: metFORMIN 500 MG TAB GTB SCH ×2 (10:08→17:15)
[2016-04-23] MEDS: LISINOPRIL 5 MG TAB GTB SCH (10:08)
[2016-04-23] MEDS: clonAZEPAM 0.5 MG TAB GTB SCH ×3 (10:08→21:46)
[2016-04-23] MEDS: LACTOBACILLUS RHAMNOSUS CAP GTB SCH ×2 (10:09→21:46)
[2016-04-23] MEDS: QUETIAPINE 25 MG TAB GTB SCH ×2 (10:09→22:17)
[2016-04-23] MEDS: COLLAGENASE 30 GM TUBE TOP SCH (10:10)
[2016-04-23] MEDS: INSULIN ASPART [NOVOLOG] 3 ML PEN SC SCH ×2 (10:44→22:03)
--- NOTE | 2016-04-23 11:46 | CONS ---
Date/Time of Note Date/Time of Note DATE: 04/23/16 TIME: 11:43 Consult Date/Type/Reason Admit Date/Time Apr 21, 2016 at 10:39 Initial Consult Date Type of Consultation: pulmonary Subjective Patient stable this morning no new events Remains confused at baseline Thick copious secretions prior tracheostomy Objective Vital Signs Date Time Temp Pulse Resp B/P Pulse Ox O2 Delivery O2 Flow Rate FiO2 04/23/16 07:51 8.0 35 04/23/16 07:51 95 22 95 Aerosol T Tube 04/23/16 07:33 98.8 106/57 Intake and Output 04/22/16 04/22/16 04/23/16 15:00 23:00 07:00 Intake Total 110 ml 1040 ml 1400 ml Output Total 2600 ml 800 ml Balance 110 ml -1560 ml 600 ml PHYSICAL EXAMINATION: VITAL SIGNS: As above NECK: Supple. No JVD noted. No cervical lymphadenopathy noted. No carotid bruits heard. Tracheostomy site is clear. LUNGS: A few scattered rhonchi present. CARDIOVASCULAR: S1, S2 normal. ABDOMEN: Soft, nontender. G-tube in place. EXTREMITIES: No clubbing, cyanosis, or edema noted. NEUROLOGICAL: The patient opens her eyes; however, does not follow any verbal commands. Results/Medications Result Diagram: 04/23/16 0450 04/23/16 0450 Results 24 hrs Laboratory Tests Test 04/22/16 13:10 04/22/16 17:48 04/22/16 20:59 04/22/16 23:46 Bedside Glucose 201 251 H 226 H 218 Test 04/23/16 04:50 04/23/16 06:30 04/23/16 10:13 Anion Gap 16 Basophils # 0.1 Basophils % 0.6 Blood Morphology Comment Blood Urea Nitrogen 26 H Calcium Level 8.5 Carbon Dioxide Level 28 Chloride Level 97 Creatinine 0.78 Eosinophils # 1.1 H Eosinophils % 7.0 Glucose Level 235 H Hematocrit 24.9 L Hemoglobin 8.4 L Lymphocytes # 3.3 H Lymphocytes % 22.2 Mean Corpuscular Hemoglobin 31.8 Mean Corpuscular Hemoglobin Concent 33.8 Mean Corpuscular Volume 94.2 Mean Platelet Volume 8.1 Monocytes # 1.8 H Monocytes % 11.9 H Neutrophils # 8.8 H Neutrophils % 58.3 Nucleated Red Blood Cells # 0.0 Nucleated Red Blood Cells % 0.0 Platelet Count 329 Potassium Level 4.1 Red Blood Count 2.64 L Red Cell Distribution Width 20.8 H Sodium Level 137 White Blood Count 15.0 #H Bedside Glucose 281 H 324 H Medications Current Medications Carvedilol (Coreg) 6.25 mg BID GTB Last administered on 04/23/16 10:08; Admin Dose 6.25 MG; Start 04/21/16 at 21:00 Chlorhexidine Gluconate (Peridex) 15 ml Q12 MM Last administered on 04/23/16 09:00; Admin Dose 15 ML; Start 04/21/16 at 21:00 Clonazepam (Klonopin) 0.5 mg TID GTB Last administered on 04/23/16 10:08; Admin Dose 0.5 MG; Start 04/21/16 at 21:00 Clonidine (Catapres) 0.1 mg Q6 PRN GTB ELEVATED BLOOD PRESSURE; Start 04/21/16 at 17:00 Fentanyl (Duragesic 50 Mcg/Hr Patch) 1 patch Q72H TRANSDERM ; Start 04/23/16 at 21:00 Ferrous Sulfate (Feosol Liquid Cup) 330 mg BID GTB Last administered on 10:07; Admin Dose 330 MG; Start 04/21/16 at 21:00 Lactobacillus Acidophilus/ Rhamnosus (Culturelle) 1 cap BID GTB Last administered on 04/23/16 10:09; Admin Dose 1 CAP; Start 04/21/16 at 21:00 Lisinopril (Zestril) 5 mg DAILY GTB Last administered on 04/23/16 10:08; Admin Dose 5 MG; Start 04/21/16 at 18:00 Lorazepam (Ativan) 1 mg Q2HWA PRN GTB ANXIETY; Start 04/21/16 at 17:00 Metoclopramide HCl (Reglan) 10 mg Q6 PRN GTB NAUSEA AND/OR VOMITING; Start 03/26 at 17:00 Nitroglycerin (Nitroglycerin (Sl Tab) 0.4 Mg) 0.4 tab PRN PRN SL CHEST PAIN; Start 04/21/16 at 17:00 Quetiapine Fumarate (Seroquel) 12.5 mg BID GTB Last administered on 04/23/16 10:09; Admin Dose 12.5 MG; Start 04/21/16 at 21:00 Multivitamins 5 ml 5 ml DAILY GTB Last administered on 04/23/16 10:07; Admin Dose 5 ML; Start 04/22/16 at 09:00 Sodium Chloride (1/2 NS) 1,000 ml @ 80 mls/hr [id number] IV Last administered on 04/23/16 00:05; Admin Dose 80 MLS/HR; Start 04/21/16 at 17:30 Insulin Aspart (Novolog Insulin Pen) 18 unit BID SC Last administered on 10:44; Admin Dose 18 UNIT; Start 04/21/16 at 21:00 Miscellaneous Information 1 ea NOTE XX ; Start 04/21/16 at 17:30 Glucose (Glutose) 15 gm Q15M PRN PO DECREASED GLUCOSE; Start 04/21/16 at 17:30 Glucose (Glutose) 22.5 gm Q15M PRN PO DECREASED GLUCOSE; Start 04/21/16 at 17: 30 Dextrose (D50w Syringe) 25 ml Q15M PRN IV DECREASED GLUCOSE; Start 04/21/16 at 17:30 Dextrose (D50w Syringe) 50 ml Q15M PRN IV DECREASED GLUCOSE; Start 04/21/16 at 17:30 Glucagon (Glucagen) 1 mg Q15M PRN IM DECREASED GLUCOSE; Start 04/21/16 at 17:30 Glucose (Glutose) 15 gm Q15M PRN BUCCAL DECREASED GLUCOSE; Start 04/21/16 at 17 :30 Insulin Aspart (Novolog Insulin Pen) (Adult SC Insulin - Mild Algorithm)... Q6 SC Last administered on 04/23/16 06:36; Admin Dose 4 UNIT; Start 04/22/16 at 00:00 Pantoprazole (Protonix Iv) 40 mg DAILY@06 IV Last administered on 04/23/16 06: 31; Admin Dose 40 MG; Start 04/22/16 at 06:00 Collagenase (Santyl) 1 applic DAILY TOP Last administered on 04/23/16 10:10; Admin Dose 1 APPLIC; Start 04/22/16 at 16:30 Nystatin (Nystatin Powder) 1 applic BID TOP Last administered on 04/23/16 09: 00; Admin Dose 1 APPLIC; Start 04/22/16 at 21:00 Assessment/Plan Chief Complaint/Hosp Course IMPRESSION: A 65-year-old female with: 1. Chronic respiratory failure, tracheostomy dependent. Probable tracheobronchitis 2. Anemia. Rule out gastrointestinal bleed. 3. Encephalopathy. Chronic 4. Acute renal failure. Likely prerenal now improved with hydration 5. Dehydration. 6. Hyperkalemia. Now resolved. 7. History of diabetes mellitus. 8. History of hypertension. 9. Status post craniotomy. 10. History of congestive heart failure. 11. History of hypertension. RECOMMENDATIONS: 1. Check stool for occult blood. 2. Transfuse packed RBC p.r.n. 3. Gastrointestinal evaluation noted. 4. Proton pump inhibitor. 5. Continue tracheostomy care. Add Mucomyst to medications 6. Oxygen. 7. Followup labs. 8. Continue antibiotics Problems: JORDON MONSON MD, [facility] Apr 23, 2016 11:46
--- NOTE | 2016-04-23 11:52 | PN ---
Date/Time of Note Date/Time of Note DATE: 04/23/16 TIME: 11:51 Assessment/Plan Lines/Catheters IV Catheter Type (from [facility]): Peripheral IV Urinary Cath still in place: Yes Assessment/Plan Assessment/Plan 1. Anemia. The patient is followed by Dr. Dowd from gastroenterology consultation. We will continue Protonix. Stool for OB is negative. The patient has most likely anemia of chronic disease. Continue to monitor hemoglobin and hematocrit. 2. Tracheostomy. The patient is followed by Dr. Mcbride's group in pulmonology consultation. Continue bronchodilators and oxygen supplementation. 3. Acute kidney injury, resolved. Continue to monitor BUN and creatinine. 4. Dehydration, resolved. Continue IV fluids. Monitor electrolytes. 5. Diabetes mellitus by history. Continue NovoLog and Lantus. 6. Multiple wounds. Continue to follow up wound care recommendations. Continue air mattress and local wound care. 7. Congestive heart failure by history. Continue to monitor intake and output. 8. Chronic encephalopathy with history of craniotomy. We will continue Protonix for peptic ulcer disease prophylaxis and sequential compression device for deep venous thrombosis prophylaxis. Further recommendations based on clinical course. Plan of care discussed with Dr. Suarez. Subjective 24 Hr Interval Summary Subjective hx not possible: pt non-verbal Constitutional: requiring IVF, requiring O2 Exam/Review of Systems Vital Signs Vitals Vital Signs Date Time Temp Pulse Resp B/P Pulse Ox O2 Delivery O2 Flow Rate FiO2 04/23/16 07:51 8.0 35 04/23/16 07:51 95 22 95 Aerosol T Tube 04/23/16 07:33 98.8 106/57 Intake and Output 04/22/16 04/22/16 04/23/16 15:00 23:00 07:00 Intake Total 110 ml 1040 ml 1400 ml Output Total 2600 ml 800 ml Balance 110 ml -1560 ml 600 ml Exam Respiratory: diminished breath sounds Results Result Diagram: 04/23/16 0450 04/23/16 0450 Results 24 hrs Laboratory Tests Test 04/22/16 13:10 04/22/16 17:48 04/22/16 20:59 04/22/16 23:46 Bedside Glucose 201 251 H 226 H 218 Test 04/23/16 04:50 04/23/16 06:30 04/23/16 10:13 Anion Gap 16 Basophils # 0.1 Basophils % 0.6 Blood Morphology Comment Blood Urea Nitrogen 26 H Calcium Level 8.5 Carbon Dioxide Level 28 Chloride Level 97 Creatinine 0.78 Eosinophils # 1.1 H Eosinophils % 7.0 Glucose Level 235 H Hematocrit 24.9 L Hemoglobin 8.4 L Lymphocytes # 3.3 H Lymphocytes % 22.2 Mean Corpuscular Hemoglobin 31.8 Mean Corpuscular Hemoglobin Concent 33.8 Mean Corpuscular Volume 94.2 Mean Platelet Volume 8.1 Monocytes # 1.8 H Monocytes % 11.9 H Neutrophils # 8.8 H Neutrophils % 58.3 Nucleated Red Blood Cells # 0.0 Nucleated Red Blood Cells % 0.0 Platelet Count 329 Potassium Level 4.1 Red Blood Count 2.64 L Red Cell Distribution Width 20.8 H Sodium Level 137 White Blood Count 15.0 #H Bedside Glucose 281 H 324 H Medications Medications Current Medications Carvedilol (Coreg) 6.25 mg BID GTB Last administered on 04/23/16 10:08; Admin Dose 6.25 MG; Start 04/21/16 at 21:00 Chlorhexidine Gluconate (Peridex) 15 ml Q12 MM Last administered on 04/23/16 09:00; Admin Dose 15 ML; Start 04/21/16 at 21:00 Clonazepam (Klonopin) 0.5 mg TID GTB Last administered on 04/23/16 10:08; Admin Dose 0.5 MG; Start 04/21/16 at 21:00 Clonidine (Catapres) 0.1 mg Q6 PRN GTB ELEVATED BLOOD PRESSURE; Start 04/21/16 at 17:00 Fentanyl (Duragesic 50 Mcg/Hr Patch) 1 patch Q72H TRANSDERM ; Start 04/23/16 at 21:00 Ferrous Sulfate (Feosol Liquid Cup) 330 mg BID GTB Last administered on 10:07; Admin Dose 330 MG; Start 04/21/16 at 21:00 Lactobacillus Acidophilus/ Rhamnosus (Culturelle) 1 cap BID GTB Last administered on 04/23/16 10:09; Admin Dose 1 CAP; Start 04/21/16 at 21:00 Lisinopril (Zestril) 5 mg DAILY GTB Last administered on 04/23/16 10:08; Admin Dose 5 MG; Start 04/21/16 at 18:00 Lorazepam (Ativan) 1 mg Q2HWA PRN GTB ANXIETY; Start 04/21/16 at 17:00 Metoclopramide HCl (Reglan) 10 mg Q6 PRN GTB NAUSEA AND/OR VOMITING; Start 03/26 at 17:00 Nitroglycerin (Nitroglycerin (Sl Tab) 0.4 Mg) 0.4 tab PRN PRN SL CHEST PAIN; Start 04/21/16 at 17:00 Quetiapine Fumarate (Seroquel) 12.5 mg BID GTB Last administered on 04/23/16 10:09; Admin Dose 12.5 MG; Start 04/21/16 at 21:00 Multivitamins 5 ml 5 ml DAILY GTB Last administered on 04/23/16 10:07; Admin Dose 5 ML; Start 04/22/16 at 09:00 Sodium Chloride (1/2 NS) 1,000 ml @ 80 mls/hr [id number] IV Last administered on 04/23/16 00:05; Admin Dose 80 MLS/HR; Start 04/21/16 at 17:30 Insulin Aspart (Novolog Insulin Pen) 18 unit BID SC Last administered on 10:44; Admin Dose 18 UNIT; Start 04/21/16 at 21:00 Miscellaneous Information 1 ea NOTE XX ; Start 04/21/16 at 17:30 Glucose (Glutose) 15 gm Q15M PRN PO DECREASED GLUCOSE; Start 04/21/16 at 17:30 Glucose (Glutose) 22.5 gm Q15M PRN PO DECREASED GLUCOSE; Start 04/21/16 at 17: 30 Dextrose (D50w Syringe) 25 ml Q15M PRN IV DECREASED GLUCOSE; Start 04/21/16 at 17:30 Dextrose (D50w Syringe) 50 ml Q15M PRN IV DECREASED GLUCOSE; Start 04/21/16 at 17:30 Glucagon (Glucagen) 1 mg Q15M PRN IM DECREASED GLUCOSE; Start 04/21/16 at 17:30 Glucose (Glutose) 15 gm Q15M PRN BUCCAL DECREASED GLUCOSE; Start 04/21/16 at 17 :30 Insulin Aspart (Novolog Insulin Pen) (Adult SC Insulin - Mild Algorithm)... Q6 SC Last administered on 04/23/16 06:36; Admin Dose 4 UNIT; Start 04/22/16 at 00:00 Pantoprazole (Protonix Iv) 40 mg DAILY@06 IV Last administered on 04/23/16 06: 31; Admin Dose 40 MG; Start 04/22/16 at 06:00 Collagenase (Santyl) 1 applic DAILY TOP Last administered on 04/23/16 10:10; Admin Dose 1 APPLIC; Start 04/22/16 at 16:30 Nystatin (Nystatin Powder) 1 applic BID TOP Last administered on 04/23/16 09: 00; Admin Dose 1 APPLIC; Start 04/22/16 at 21:00 JUAN POSADA Apr 23, 2016 11:51
--- NOTE | 2016-04-23 13:09 | CONS ---
DATE OF ADMISSION: 04/21/2016 DATE OF CONSULTATION: 04/23/2016 TYPE OF CONSULTATION: Infectious Disease. REASON FOR CONSULTATION: Antibiotic management. HISTORY OF PRESENT ILLNESS: Monique Barrera is a 65-year-old female with multiple problems who come s in from assisted facility with dehydration, worsening anemia and suspicion for upper gastro intestinal bleed. The patient has a history of gastritis and gastroesophageal reflux disease. On a dmission, she had no fever or chills. She is nonverbal. Her past problems include: 1. Adult-onset diabetes mellitus. 2. Hypertension. 3. Chronic encephalopathy. 4. Left upper and lower extremity paralysis. 5. Dysphagia. 6. Tracheostomy, ventilator-dependent respiratory failure. 7. Paroxysmal atrial fibrillation. 8. Obesity. 9. Deep venous thrombosis. 10. Pulmonary emboli. 11. Peptic ulcer disease. 12. Status post craniotomy. 13. Congestive heart failure. 14. Cardiomyopathy. Acutely, the patient comes in as outlined. On admission, her white count was 11.1, H and H of 8.9 a nd 26.3, platelet count 345,000. BUN and creatinine are 45/1.26. PAST MEDICAL HISTORY: Operations as outlined. FAMILY HISTORY: Noncontributory. SOCIAL HISTORY: She is a former smoker. She does not drink or abuse drugs. ALLERGIES: NONE TO PENICILLIN, SULFA OR FOODS. MEDICATIONS: Per chart. REVIEW OF SYSTEMS: As per HPI. PHYSICAL EXAMINATION: GENERAL: The patient is an elderly appearing female who is awake, but noncommunicative, in no acute distress. VITAL SIGNS: Stable. She is afebrile. SKIN: Without generalized rash. HEENT: Within normal limits. NECK: Movable, tracheostomy is in place without discharge. CHEST: Decreased breath sounds at the bases with scattered rhonchi bilaterally. HEART: Without murmur or gallop. ABDOMEN: Soft, nontender without organosplenomegaly or masses. G-tube in place. EXTREMITIES: Without cyanosis, clubbing, or edema. RECTAL AND GENITAL: Deferred. NEUROLOGIC: The patient has her eyes open. She has marked weakness in the left upper and lower ext remities. HOSPITAL COURSE: The patient was seen by Dr. Dowd in GI consultation. He recommended hydration, 2-D echocardiogram and if there is any evidence of GI bleed, then we need to stop Lovenox and go ahe ad and do a GI workup. The patient is being seen by Dr. Mcbride for pulmonary. She has thick copio us secretions per tracheostomy. White count today is 15,000, H and H 8.4 and 24.9, platelet count 3 29,000. BUN and creatinine 26/0.78. IMPRESSION AND PLAN: The patient has probable tracheobronchitis. The patient is currently on no pa rticular antibiotics. Her white count is 15,000. I think we will get a culture of her sputum and c onsider starting her on something like cefepime. Dictated By: ANGEL HUANG MD, JD/DENNIS Conf#: [id number] DID#: [id number]
--- NOTE | 2016-04-23 13:13 | CONS ---
Date/Time of Note Date/Time of Note DATE: 04/23/16 TIME: 13:12 Assessment/Plan Assessment/Plan Additional Assessment/Plan Additional Assessment/Plan ASSESSMENT AND PLAN: 1. Anemia, rule out gastrointestinal bleeding, anemia of chronic disease.retic count high 2. Diabetes mellitus. 3. Cerebrovascular accident. 4. Vent dependent respiratory failure. 5. Paroxysmal atrial fibrillation. 6. Dysphagia status post G-tube. 7. Hypertension. 8. Renal insufficiency. 9. Multiple wounds. 10. Cardiomyopathy. Plan awaiting for occult blood.negative one sample continue PPI Consultation Date/Type/Reason Admit Date/Time Apr 21, 2016 at 10:39 Type of Consultation: pulmonary 24 HR Interval Summary Constitutional: no complaints Exam/Review of Systems Vital Signs Vitals Vital Signs Date Time Temp Pulse Resp B/P Pulse Ox O2 Delivery O2 Flow Rate FiO2 04/23/16 07:51 8.0 35 04/23/16 07:51 95 22 95 Aerosol T Tube 04/23/16 07:33 98.8 106/57 Intake and Output 04/22/16 04/22/16 04/23/16 15:00 23:00 07:00 Intake Total 110 ml 1040 ml 1400 ml Output Total 2600 ml 800 ml Balance 110 ml -1560 ml 600 ml Exam Constitutional: alert, oriented, well developed Psych: nl mood/affect, no complaints Head: atraumatic, normocephalic Eyes: EOMI, PERRL, nl conjunctiva, nl lids, nl sclera ENMT: nl external ears & nose, nl lips & teeth, nl nasal mucosa & septum Neck: non-tender, supple Respiratory: clear to auscultation, normal air movement Cardiovascular: nl pulses, regular rate and rhythm Gastrointestinal: nl liver, spleen, non-tender, soft Musculoskeletal: nl extremities to inspection, nl gait and stance Extremities: normal pulses Neurological: PRESS MACHINE FEEDER II-XII intact, nl mental status, nl speech, nl strength Skin: nl turgor, No rash or lesions Lymph: nl lymph nodes Results Result Diagram: 04/23/16 0450 04/23/160 Results 24 hrs Laboratory Tests Test 04/22/16 17:48 04/22/16 20:59 04/22/16 23:46 04/23/16 04:50 Bedside Glucose 251 H 226 H 218 Anion Gap 16 Basophils # 0.1 Basophils % 0.6 Blood Morphology Comment Blood Urea Nitrogen 26 H Calcium Level 8.5 Carbon Dioxide Level 28 Chloride Level 97 Creatinine 0.78 Eosinophils # 1.1 H Eosinophils % 7.0 Glucose Level 235 H Hematocrit 24.9 L Hemoglobin 8.4 L Lymphocytes # 3.3 H Lymphocytes % 22.2 Mean Corpuscular Hemoglobin 31.8 Mean Corpuscular Hemoglobin Concent 33.8 Mean Corpuscular Volume 94.2 Mean Platelet Volume 8.1 Monocytes # 1.8 H Monocytes % 11.9 H Neutrophils # 8.8 H Neutrophils % 58.3 Nucleated Red Blood Cells # 0.0 Nucleated Red Blood Cells % 0.0 Platelet Count 329 Potassium Level 4.1 Red Blood Count 2.64 L Red Cell Distribution Width 20.8 H Sodium Level 137 White Blood Count 15.0 #H Test 04/23/16 06:30 04/23/16 10:13 04/23/16 12:33 Bedside Glucose 281 H 324 H 289 H Medications Medications Current Medications Carvedilol (Coreg) 6.25 mg BID GTB Last administered on 04/23/16 10:08; Admin Dose 6.25 MG; Start 04/21/16 at 21:00 Chlorhexidine Gluconate (Peridex) 15 ml Q12 MM Last administered on 04/23/16 09:00; Admin Dose 15 ML; Start 04/21/16 at 21:00 Clonazepam (Klonopin) 0.5 mg TID GTB Last administered on 04/23/16 12:38; Admin Dose 0.5 MG; Start 04/21/16 at 21:00 Clonidine (Catapres) 0.1 mg Q6 PRN GTB ELEVATED BLOOD PRESSURE; Start 04/21/16 at 17:00 Fentanyl (Duragesic 50 Mcg/Hr Patch) 1 patch Q72H TRANSDERM ; Start 04/23/16 at 21:00 Ferrous Sulfate (Feosol Liquid Cup) 330 mg BID GTB Last administered on 10:07; Admin Dose 330 MG; Start 04/21/16 at 21:00 Lactobacillus Acidophilus/ Rhamnosus (Culturelle) 1 cap BID GTB Last administered on 04/23/16 10:09; Admin Dose 1 CAP; Start 04/21/16 at 21:00 Lisinopril (Zestril) 5 mg DAILY GTB Last administered on 04/23/16 10:08; Admin Dose 5 MG; Start 04/21/16 at 18:00 Lorazepam (Ativan) 1 mg Q2HWA PRN GTB ANXIETY; Start 04/21/16 at 17:00 Metoclopramide HCl (Reglan) 10 mg Q6 PRN GTB NAUSEA AND/OR VOMITING; Start 03/26 at 17:00 Nitroglycerin (Nitroglycerin (Sl Tab) 0.4 Mg) 0.4 tab PRN PRN SL CHEST PAIN; Start 04/21/16 at 17:00 Quetiapine Fumarate (Seroquel) 12.5 mg BID GTB Last administered on 04/23/16 10:09; Admin Dose 12.5 MG; Start 04/21/16 at 21:00 Multivitamins 5 ml 5 ml DAILY GTB Last administered on 04/23/16 10:07; Admin Dose 5 ML; Start 04/22/16 at 09:00 Sodium Chloride (1/2 NS) 1,000 ml @ 80 mls/hr [id number] IV Last administered on 04/23/16 00:05; Admin Dose 80 MLS/HR; Start 04/21/16 at 17:30 Insulin Aspart (Novolog Insulin Pen) 18 unit BID SC Last administered on 10:44; Admin Dose 18 UNIT; Start 04/21/16 at 21:00 Miscellaneous Information 1 ea NOTE XX ; Start 04/21/16 at 17:30 Glucose (Glutose) 15 gm Q15M PRN PO DECREASED GLUCOSE; Start 04/21/16 at 17:30 Glucose (Glutose) 22.5 gm Q15M PRN PO DECREASED GLUCOSE; Start 04/21/16 at 17: 30 Dextrose (D50w Syringe) 25 ml Q15M PRN IV DECREASED GLUCOSE; Start 04/21/16 at 17:30 Dextrose (D50w Syringe) 50 ml Q15M PRN IV DECREASED GLUCOSE; Start 04/21/16 at 17:30 Glucagon (Glucagen) 1 mg Q15M PRN IM DECREASED GLUCOSE; Start 04/21/16 at 17:30 Glucose (Glutose) 15 gm Q15M PRN BUCCAL DECREASED GLUCOSE; Start 04/21/16 at 17 :30 Insulin Aspart (Novolog Insulin Pen) (Adult SC Insulin - Mild Algorithm)... Q6 SC Last administered on 04/23/16 12:41; Admin Dose 4 UNIT; Start 04/22/16 at 00:00 Pantoprazole (Protonix Iv) 40 mg DAILY@06 IV Last administered on 04/23/16 06: 31; Admin Dose 40 MG; Start 04/22/16 at 06:00 Collagenase (Santyl) 1 applic DAILY TOP Last administered on 04/23/16 10:10; Admin Dose 1 APPLIC; Start 04/22/16 at 16:30 Nystatin (Nystatin Powder) 1 applic BID TOP Last administered on 04/23/16 09: 00; Admin Dose 1 APPLIC; Start 04/22/16 at 21:00 Insulin Glargine 10 unit 10 unit QHS SC ; Start 04/23/16 at 21:00 Cefepime HCl (Maxipime 1gm/50 ml (Pmx)) 50 ml @ 100 mls/hr Q12 IVPB ; Start at 21:00 INES TORRE MD Apr 23, 2016 13:13
[2016-04-23] MEDS: ALBUTEROL/IPRATROPIUM (NEB) 3 ML AMP NEB PRN ×2 (14:04→19:39)
[2016-04-23] MEDS: ACETYLCYSTEINE 20% 4 ML VIAL NEB SCH ×2 (14:05→19:38)
[2016-04-23 20:01] VITALS: BP 101/66; RESP 16
[2016-04-23] MEDS ORDERED: FENTAnyl PATCH 50 MCG/HR TRANSDERM SCH (21:00)
[2016-04-23] MEDS: CEFEPIME 1GM/50 ML (PMX) 50 ML IVPB SCH (21:47)
[2016-04-23] MEDS: INSULIN GLARGINE [LANtus] 3 ML PEN SC SCH (22:03)
[2016-04-24] MEDS: Insulin NOVOLOG SS MILD Algorithm (NPO/TPN/ENTERAL FEEDS) SC SCH ×5 (00:36→23:35)
[2016-04-24] MEDS: SOD CHLORIDE 0.45% 1,000 ML IV SCH ×2 (00:38→20:37)
[2016-04-24] MEDS: ALBUTEROL/IPRATROPIUM (NEB) 3 ML AMP NEB PRN ×2 (01:25→14:47)
[2016-04-24 05:36] LABS: BASOPHILS % 0.4 % (0.0-2.0); EOSINOPHILS # 1.2 10^3/ul (0.0-0.5); EOSINOPHILS % 11.4 % (0.0-7.0); HEMATOCRIT 22.2 % (37.0-47.0); HEMOGLOBIN 7.5 g/dl (12.0-16.0); LYMPHOCYTES # 2.2 10^3/ul (0.8-2.9); LYMPHOCYTES % 20.3 % (15.0-51.0); MEAN CORPUSCULAR HEMOGLOBIN 32.3 pg (29.0-33.0); MEAN CORPUSCULAR VOLUME 95.1 fl (82.0-101.0); MEAN PLATELET VOLUME 7.8 fl (7.4-10.4); MONOCYTE # 1.2 10^3/ul (0.3-0.9); MONOCYTES % 10.7 % (0.0-11.0); NEUTROPHIL # 6.2 10^3/ul (1.6-7.5); NEUTROPHILS % 57.2 % (39.0-77.0); PLATELET COUNT 307 10^3/UL (140-440); RED BLOOD COUNT 2.33 10^6/ul (4.20-5.40); RED CELL DISTRIBUTION WIDTH 21.4 % (11.5-14.5); UNCORRECTED WBC 10.8 10^3/ul (4.8-10.8); WHITE BLOOD COUNT 10.8 10^3/ul (4.8-10.8)
[2016-04-24] MEDS: PANTOPRAZOLE 40 MG INJ IV SCH (05:42)
[2016-04-24 05:48] LABS: CONDITION 1; LH ANALYZER COMMENTS 1
[2016-04-24 05:57] LABS: POTASSIUM 4.2 mmol/L (3.5-5.1)
[2016-04-24 06:00] LABS: CREATININE 0.74 mg/dl (0.44-1.00)
[2016-04-24 06:01] LABS: CALCIUM 8.6 mg/dl (8.4-10.2); PHOSPHORUS 2.5 mg/dl (2.5-4.9)
[2016-04-24] MEDS ORDERED: NALOXONE (0.4 MG/ML) INJ ONE (07:00)
[2016-04-24 07:47] VITALS: BP 120/59; RESP 20
[2016-04-24] MEDS: ACETYLCYSTEINE 20% 4 ML VIAL NEB SCH ×3 (08:00→19:55)
--- NOTE | 2016-04-24 08:12 | CONS ---
Date/Time of Note Date/Time of Note DATE: 04/24/16 TIME: 08:10 Assessment/Plan Assessment/Plan Additional Assessment/Plan Additional Assessment/Plan ASSESSMENT AND PLAN: 1. Anemia, rule out gastrointestinal bleeding, anemia of chronic disease, .retic count high 2. Diabetes mellitus. 3. Cerebrovascular accident. 4. Vent dependent respiratory failure. 5. Paroxysmal atrial fibrillation. 6. Dysphagia status post G-tube. 7. Hypertension. 8. Renal insufficiency. 9. Multiple wounds. 10. Cardiomyopathy. Plan awaiting for occult blood.negative one sample continue PPI transfusion LDH,haptoglobin Consultation Date/Type/Reason Admit Date/Time Apr 21, 2016 at 10:39 Type of Consultation: pulmonary 24 HR Interval Summary Constitutional: no complaints Exam/Review of Systems Vital Signs Vitals Vital Signs Date Time Temp Pulse Resp B/P Pulse Ox O2 Delivery O2 Flow Rate FiO2 04/24/16 07:47 98.8 116 20 120/59 89 04/24/16 01:42 Aerosol 8.0 35 T Tube Intake and Output 04/23/16 04/23/16 04/24/16 15:00 23:00 07:00 Intake Total 1625 ml 1570 ml 1270 ml Output Total 1500 ml 1200 ml Balance 1625 ml 70 ml 70 ml Exam Constitutional: alert, oriented, well developed Psych: nl mood/affect, no complaints Head: atraumatic, normocephalic Eyes: EOMI, PERRL, nl conjunctiva, nl lids, nl sclera ENMT: nl external ears & nose, nl lips & teeth, nl nasal mucosa & septum Neck: non-tender, supple Respiratory: clear to auscultation, normal air movement Cardiovascular: nl pulses, regular rate and rhythm Gastrointestinal: nl liver, spleen, non-tender, soft Musculoskeletal: nl extremities to inspection, nl gait and stance Extremities: normal pulses Neurological: AUTO RADIATOR SPECIALIST II-XII intact, nl mental status, nl speech, nl strength Skin: nl turgor, No rash or lesions Lymph: nl lymph nodes Results Result Diagram: 04/24/16 0450 04/24/16 0450 Results 24 hrs Laboratory Tests Test 04/23/16 10:13 04/23/16 12:33 04/23/16 17:14 04/23/16 21:44 Bedside Glucose 324 H 289 H 297 H 260 H Test 04/24/16 00:35 04/24/16 04:50 04/24/16 05:41 Bedside Glucose 242 H 260 H Anion Gap 12 Basophils # 0.0 Basophils % 0.4 Blood Morphology Comment Blood Urea Nitrogen 21 H Calcium Level 8.6 Carbon Dioxide Level 29 Chloride Level 102 Creatinine 0.74 Eosinophils # 1.2 H Eosinophils % 11.4 H Glucose Level 191 Hematocrit 22.2 L Hemoglobin 7.5 L Lymphocytes # 2.2 Lymphocytes % 20.3 Magnesium Level 2.0 Mean Corpuscular Hemoglobin 32.3 Mean Corpuscular Hemoglobin Concent 34.0 Mean Corpuscular Volume 95.1 Mean Platelet Volume 7.8 Monocytes # 1.2 H Monocytes % 10.7 Neutrophils # 6.2 Neutrophils % 57.2 Nucleated Red Blood Cells # 0.0 Nucleated Red Blood Cells % 0.0 Phosphorus Level 2.5 Platelet Count 307 Potassium Level 4.2 Red Blood Count 2.33 L Red Cell Distribution Width 21.4 H Sodium Level 139 White Blood Count 10.8 # Medications Medications Current Medications Carvedilol (Coreg) 6.25 mg BID GTB Last administered on 04/23/16 21:47; Admin Dose 6.25 MG; Start 04/21/16 at 21:00 Chlorhexidine Gluconate (Peridex) 15 ml Q12 MM Last administered on 04/23/16 21:46; Admin Dose 15 ML; Start 04/21/16 at 21:00 Clonazepam (Klonopin) 0.5 mg TID GTB Last administered on 04/23/16 21:46; Admin Dose 0.5 MG; Start 04/21/16 at 21:00 Clonidine (Catapres) 0.1 mg Q6 PRN GTB ELEVATED BLOOD PRESSURE; Start 04/21/16 at 17:00 Fentanyl (Duragesic 50 Mcg/Hr Patch) 1 patch Q72H TRANSDERM Last administered on 04/23/16 22:12; Admin Dose 1 PATCH; Start 04/23/16 at 21:00 Ferrous Sulfate (Feosol Liquid Cup) 330 mg BID GTB Last administered on 21:46; Admin Dose 330 MG; Start 04/21/16 at 21:00 Lactobacillus Acidophilus/ Rhamnosus (Culturelle) 1 cap BID GTB Last administered on 04/23/16 21:46; Admin Dose 1 CAP; Start 04/21/16 at 21:00 Lisinopril (Zestril) 5 mg DAILY GTB Last administered on 04/23/16 10:08; Admin Dose 5 MG; Start 04/21/16 at 18:00 Lorazepam (Ativan) 1 mg Q2HWA PRN GTB ANXIETY; Start 04/21/16 at 17:00 Metoclopramide HCl (Reglan) 10 mg Q6 PRN GTB NAUSEA AND/OR VOMITING; Start 03/26 at 17:00 Nitroglycerin (Nitroglycerin (Sl Tab) 0.4 Mg) 0.4 tab PRN PRN SL CHEST PAIN; Start 04/21/16 at 17:00 Quetiapine Fumarate (Seroquel) 12.5 mg BID GTB Last administered on 04/23/16 22:17; Admin Dose 12.5 MG; Start 04/21/16 at 21:00 Multivitamins 5 ml 5 ml DAILY GTB Last administered on 04/23/16 10:07; Admin Dose 5 ML; Start 04/22/16 at 09:00 Sodium Chloride (1/2 NS) 1,000 ml @ 80 mls/hr [id number] IV Last administered on 04/24/16 00:38; Admin Dose 80 MLS/HR; Start 04/21/16 at 17:30 Insulin Aspart (Novolog Insulin Pen) 18 unit BID SC Last administered on 22:03; Admin Dose 18 UNIT; Start 04/21/16 at 21:00 Miscellaneous Information 1 ea NOTE XX ; Start 04/21/16 at 17:30 Glucose (Glutose) 15 gm Q15M PRN PO DECREASED GLUCOSE; Start 04/21/16 at 17:30 Glucose (Glutose) 22.5 gm Q15M PRN PO DECREASED GLUCOSE; Start 04/21/16 at 17: 30 Dextrose (D50w Syringe) 25 ml Q15M PRN IV DECREASED GLUCOSE; Start 04/21/16 at 17:30 Dextrose (D50w Syringe) 50 ml Q15M PRN IV DECREASED GLUCOSE; Start 04/21/16 at 17:30 Glucagon (Glucagen) 1 mg Q15M PRN IM DECREASED GLUCOSE; Start 04/21/16 at 17:30 Glucose (Glutose) 15 gm Q15M PRN BUCCAL DECREASED GLUCOSE; Start 04/21/16 at 17 :30 Insulin Aspart (Novolog Insulin Pen) (Adult SC Insulin - Mild Algorithm)... Q6 SC Last administered on 04/24/16 05:44; Admin Dose 3 UNIT; Start 04/22/16 at 00:00 Pantoprazole (Protonix Iv) 40 mg DAILY@06 IV Last administered on 04/24/16 05: 42; Admin Dose 40 MG; Start 04/22/16 at 06:00 Collagenase (Santyl) 1 applic DAILY TOP Last administered on 04/23/16 10:10; Admin Dose 1 APPLIC; Start 04/22/16 at 16:30 Nystatin (Nystatin Powder) 1 applic BID TOP Last administered on 04/23/16 22: 02; Admin Dose 1 APPLIC; Start 04/22/16 at 21:00 Insulin Glargine 10 unit 10 unit QHS SC Last administered on 04/23/16 22:03; Admin Dose 10 UNIT; Start 04/23/16 at 21:00 Cefepime HCl (Maxipime 1gm/50 ml (Pmx)) 50 ml @ 100 mls/hr Q12 IVPB Last administered on 04/23/16 21:47; Admin Dose 100 MLS/HR; Start 04/23/16 at 21:00 INES TORRE MD Apr 24, 2016 08:12
[2016-04-24] MEDS: MULTIVITAMINS 5 ML CUP GTB SCH (09:45)
[2016-04-24] MEDS: CEFEPIME 1GM/50 ML (PMX) 50 ML IVPB SCH ×2 (09:46→20:43)
[2016-04-24] MEDS: FERROUS SULFATE 60 MG/ML 5ML CUP GTB SCH ×2 (09:46→20:40)
[2016-04-24] MEDS: CHLORHEXIDINE GLUCONATE 15 ML UD CUP MM SCH ×2 (09:46→20:40)
[2016-04-24] MEDS: QUETIAPINE 25 MG TAB GTB SCH ×2 (09:47→20:41)
[2016-04-24] MEDS: metFORMIN 500 MG TAB GTB SCH ×2 (09:47→17:57)
[2016-04-24] MEDS: LACTOBACILLUS RHAMNOSUS CAP GTB SCH ×2 (09:47→20:41)
[2016-04-24] MEDS: LISINOPRIL 5 MG TAB GTB SCH (09:48)
[2016-04-24] MEDS: clonAZEPAM 0.5 MG TAB GTB SCH ×3 (09:48→20:41)
[2016-04-24] MEDS: COLLAGENASE 30 GM TUBE TOP SCH (09:49)
[2016-04-24] MEDS: NYSTATIN 30 GM POWDER BTL TOP SCH ×2 (09:49→20:41)
[2016-04-24] MEDS: INSULIN ASPART [NOVOLOG] 3 ML PEN SC SCH ×3 (10:00→21:56)
[2016-04-24] MEDS ORDERED: INSULIN ASPART [NOVOLOG] 3 ML PEN SC SCH (12:15)
[2016-04-24] MEDS ORDERED: SOD CHLORIDE 0.9% 250 ML IV* ONE (12:26)
--- NOTE | 2016-04-24 12:29 | RADRPT ---
PROCEDURE: XR Chest. CLINICAL INDICATION: Shortness of breath. TECHNIQUE: Single frontal view. COMPARISON: 04/21/2016. FINDINGS: The tracheostomy tube is in satisfactory position. There is mild left basilar atelectasis. The heart is enlarged. There is calcification in the aorta consistent with atherosclerosis. There is no pleural effusion. There is no pneumothorax. IMPRESSION: 1. Tracheostomy tube. 2. Cardiomegaly and atherosclerosis. 3. Mild left basilar atelectasis. RPTAT: QQ .Pete Cruz MD, MD Date Time Electronically viewed and signed by .Pete Cruz MD, MD on 04/24/2016 12:29 .R/
[2016-04-24] MEDS ORDERED: FUROSEMIDE 40 MG INJ IV SCH (12:30)
[2016-04-24 12:46] LABS: POTASSIUM 4.4 mmol/L (3.5-5.1)
[2016-04-24 12:48] LABS: CREATININE 0.68 mg/dl (0.44-1.00)
[2016-04-24 12:49] LABS: CALCIUM 8.6 mg/dl (8.4-10.2)
--- NOTE | 2016-04-24 13:59 | CONS ---
Date/Time of Note Date/Time of Note DATE: 04/24/16 TIME: 13:59 Assessment/Plan Assessment/Plan Chief Complaint/Hosp Course ID PROGRESS NOTE TOTAL ABX DAY # 2=> Cefepime 24H INTERVAL SUMMARY * Obese F w/chronic encephalopathy resting comfortably on the Vent, no fevers, VSS * CXR 04/24/16 IMPRESSION: 1. Tracheostomy tube. 2. Cardiomegaly and atherosclerosis. 3. Mild left basilar atelectasis. * Micro: BCX (-), (-)MRSA, Sputum (+)GNR pending Specimen: [id number] Status: Resulted Brooks: 04/23/16 Rcvd: 04/23 Source: TRACHEA Sp Descrip: Microbiology RESPIRATORY CULTURE Preliminary Organism 1 GRAM NEGATIVE SARA QUANTITY 1+ PHYSICAL EXAMINATION: GENERAL: 65 yo F - noncommunicative, vented HEENT: Unremarkable NECK: Trach secure to Vetn CHEST: Rise symmetrical - Course BS HEART: RRR ABDOMEN: Soft, large pannus, peg : FC EXTREMITIES: Warm, mild edema ID ASSESSMENT: 65 yo F w/PMHx CVA, craniotomy, chronic encephalopathy, VDRF, Trach, Peg admit with: 1. SIRS w/low grade TMax 99.8, leukocytosis 2. Anemia -> work up in process for GIB 3. GNR tracheobronchitis vs trach colonization => DDx includes silent aspiration pneumonitis without evidence PNA on CXR 4. Multiple wounds/decubs: Stage II wounds under breasts, buttock, wound look clean 5. Paroxysmal atrial fibrillation. 6. Dysphagia status post G-tube. 7. Hypertension w/HTN heart disease: 2D ECHO: LVEF 55 % w/impaired relaxation ( Stage I diastolic dysfunction). 8. Renal insufficiency. (-)MRSA Nares INVASIVES: *Trach, Peg, FC CURRENT ABX: Cefepime #2 ID RECOMMENDATIONS: Continue Cefepime -- f/u on final micro Nystatin to skin folds Topical wound care . . Problems: Consultation Date/Type/Reason Admit Date/Time Apr 21, 2016 at 10:39 Initial Consult Date Type of Consultation: ID Exam/Review of Systems Vital Signs Vitals Vital Signs Date Time Temp Pulse Resp B/P Pulse Ox O2 Delivery O2 Flow Rate FiO2 04/24/16 07:47 98.8 116 20 120/59 89 04/24/16 01:42 Aerosol 8.0 35 T Tube Intake and Output 04/23/16 04/23/16 04/24/16 15:00 23:00 07:00 Intake Total 1625 ml 1570 ml 1270 ml Output Total 1500 ml 1200 ml Balance 1625 ml 70 ml 70 ml Results Result Diagram: 04/24/16 0450 04/24/16 1215 Results 24 hrs Laboratory Tests Test 04/23/16 17:14 04/23/16 21:44 04/24/16 00:35 04/24/16 04:50 Bedside Glucose 297 H 260 H 242 H Anion Gap 12 Basophils # 0.0 Basophils % 0.4 Blood Morphology Comment Blood Urea Nitrogen 21 H Calcium Level 8.6 Carbon Dioxide Level 29 Chloride Level 102 Creatinine 0.74 Eosinophils # 1.2 H Eosinophils % 11.4 H Glucose Level 191 Hematocrit 22.2 L Hemoglobin 7.5 L Lymphocytes # 2.2 Lymphocytes % 20.3 Magnesium Level 2.0 Mean Corpuscular Hemoglobin 32.3 Mean Corpuscular Hemoglobin Concent 34.0 Mean Corpuscular Volume 95.1 Mean Platelet Volume 7.8 Monocytes # 1.2 H Monocytes % 10.7 Neutrophils # 6.2 Neutrophils % 57.2 Nucleated Red Blood Cells # 0.0 Nucleated Red Blood Cells % 0.0 Phosphorus Level 2.5 Platelet Count 307 Potassium Level 4.2 Red Blood Count 2.33 L Red Cell Distribution Width 21.4 H Sodium Level 139 White Blood Count 10.8 # Test 04/24/16 05:41 04/24/16 09:52 04/24/16 11:58 04/24/16 12:15 Bedside Glucose 260 H 273 H 256 H Anion Gap 14 Blood Urea Nitrogen 20 Calcium Level 8.6 Carbon Dioxide Level 27 Chloride Level 104 Creatinine 0.68 Glucose Level 198 Potassium Level 4.4 Sodium Level 141 Medications Medications Current Medications Carvedilol (Coreg) 6.25 mg BID GTB Last administered on 04/24/16t 09:48; Admin Dose 6.25 MG; Start 04/21/16 at 21:00 Chlorhexidine Gluconate (Peridex) 15 ml Q12 MM Last administered on 04/24/16 09:46; Admin Dose 15 ML; Start 04/21/16 at 21:00 Clonazepam (Klonopin) 0.5 mg TID GTB Last administered on 04/24/16 12:52; Admin Dose 0.5 MG; Start 04/21/16 at 21:00 Clonidine (Catapres) 0.1 mg Q6 PRN GTB ELEVATED BLOOD PRESSURE; Start 04/21/16 at 17:00 Fentanyl (Duragesic 50 Mcg/Hr Patch) 1 patch Q72H TRANSDERM Last administered on 04/23/16 22:12; Admin Dose 1 PATCH; Start 04/23/16 at 21:00 Ferrous Sulfate (Feosol Liquid Cup) 330 mg BID GTB Last administered on 09:46; Admin Dose 330 MG; Start 04/21/16 at 21:00 Lactobacillus Acidophilus/ Rhamnosus (Culturelle) 1 cap BID GTB Last administered on 04/24/16 09:47; Admin Dose 1 CAP; Start 04/21/16 at 21:00 Lisinopril (Zestril) 5 mg DAILY GTB Last administered on 04/24/16 09:48; Admin Dose 5 MG; Start 04/21/16 at 18:00 Lorazepam (Ativan) 1 mg Q2HWA PRN GTB ANXIETY; Start 04/21/16 at 17:00 Metoclopramide HCl (Reglan) 10 mg Q6 PRN GTB NAUSEA AND/OR VOMITING; Start 03/26 at 17:00 Nitroglycerin (Nitroglycerin (Sl Tab) 0.4 Mg) 0.4 tab PRN PRN SL CHEST PAIN; Start 04/21/16 at 17:00 Quetiapine Fumarate (Seroquel) 12.5 mg BID GTB Last administered on 04/24/16 09:47; Admin Dose 12.5 MG; Start 04/21/16 at 21:00 Multivitamins 5 ml 5 ml DAILY GTB Last administered on 04/24/16 09:45; Admin Dose 5 ML; Start 04/22/16 at 09:00 Sodium Chloride (1/2 NS) 1,000 ml @ 30 mls/hr Q24H IV Last administered on 00:38; Admin Dose 80 MLS/HR; Start 04/21/16 at 17:30 Miscellaneous Information 1 ea NOTE XX ; Start 04/21/16 at 17:30 Glucose (Glutose) 15 gm Q15M PRN PO DECREASED GLUCOSE; Start 04/21/16 at 17:30 Glucose (Glutose) 22.5 gm Q15M PRN PO DECREASED GLUCOSE; Start 04/21/16 at 17: 30 Dextrose (D50w Syringe) 25 ml Q15M PRN IV DECREASED GLUCOSE; Start 04/21/16 at 17:30 Dextrose (D50w Syringe) 50 ml Q15M PRN IV DECREASED GLUCOSE; Start 04/21/16 at 17:30 Glucagon (Glucagen) 1 mg Q15M PRN IM DECREASED GLUCOSE; Start 04/21/16 at 17:30 Glucose (Glutose) 15 gm Q15M PRN BUCCAL DECREASED GLUCOSE; Start 04/21/16 at 17 :30 Insulin Aspart (Novolog Insulin Pen) (Adult SC Insulin - Mild Algorithm)... Q6 SC Last administered on 04/24/16 12:31; Admin Dose 3 UNIT; Start 04/22/16 at 00:00 Pantoprazole (Protonix Iv) 40 mg DAILY@06 IV Last administered on 04/24/16 05: 42; Admin Dose 40 MG; Start 04/22/16 at 06:00 Collagenase (Santyl) 1 applic DAILY TOP Last administered on 04/24/16 09:49; Admin Dose 1 APPLIC; Start 04/22/16 at 16:30 Nystatin (Nystatin Powder) 1 applic BID TOP Last administered on 04/24/16 09: 49; Admin Dose 1 APPLIC; Start 04/22/16 at 21:00 Insulin Glargine 10 unit 10 unit QHS SC Last administered on 04/23/16 22:03; Admin Dose 10 UNIT; Start 04/23/16 at 21:00 Cefepime HCl (Maxipime 1gm/50 ml (Pmx)) 50 ml @ 100 mls/hr Q12 IVPB Last administered on 04/24/16 09:46; Admin Dose 100 MLS/HR; Start 04/23/16 at 21:00 Insulin Aspart (Novolog Insulin Pen) 7 unit Q8 SC ; Start 04/24/16 at 14:00 Furosemide (Lasix) 10 mg ONCE IV ; Start 04/24/16 at 12:30; Stop 04/25/16 at 12: 29 AZUCENA NEFF NP Apr 24, 2016 13:59
--- NOTE | 2016-04-24 17:56 | PN ---
DATE: REASON FOR FOLLOWUP: Respiratory failure. SUBJECTIVE: The patient continues pulmonary toilet, still has significant copious secretions requir ing frequent suctioning via tracheostomy. Neurologically unchanged. PHYSICAL EXAMINATION: VITAL SIGNS: Temperature 98, pulse is 116, blood pressure 120/59, O2 saturation 90% on cool aerosol . NECK: Trach site clean and intact. CARDIAC: S1, S2. No added sounds or murmurs. CHEST: Diminished air entry bilaterally with rhonchi. ABDOMEN: Soft, nontender. No guarding or rebound, obese. EXTREMITIES: No cyanosis, clubbing, 2+ edema. NEUROLOGIC: Generalized weakness. LABORATORY DATA: White count down to 10.8, hemoglobin 7.5, platelets of 307. BUN 20, creatinine 0. 68. Sputum studies are pending at time of this dictation. IMPRESSION AND PLAN: 1. Hypoxemic respiratory failure with likely acute on chronic pseudomonal infection given appearanc e of bright green sputum. 2. Anemia without evidence of gastrointestinal bleeding. 3. History of cerebrovascular accident with encephalopathy. The patient should continue with cool aerosol. Continue pulmonary toilet, continue Mucomyst. Joel nue insulin. Continue with cefepime for antibiotics. I will send sputum for Gram stain and culture . Dictated By: JORDON MONSON MD SV/NTS Conf#: [id number] DID#: [id number] CC: JOSR LORENZO MD;*EndCC*
[2016-04-24 20:00] VITALS: BP 128/69; RESP 20
[2016-04-24 20:26] VITALS: RESP 20
[2016-04-24] MEDS: INSULIN GLARGINE [LANtus] 3 ML PEN SC SCH (21:56)
[2016-04-25] VITALS (21 sets, daily range): BP systolic 73–114; BP diastolic 41–75; PULSE 91–118; RESP 10–31
[2016-04-25] MEDS: ACETYLCYSTEINE 20% 4 ML VIAL NEB SCH ×4 (01:28→19:39)
[2016-04-25 05:43] LABS: BASOPHIL # 0.1 10^3/ul (0.0-0.1); BASOPHILS % 0.8 % (0.0-2.0); EOSINOPHILS # 1.6 10^3/ul (0.0-0.5); EOSINOPHILS % 12.5 % (0.0-7.0); HEMATOCRIT 28.4 % (37.0-47.0); HEMOGLOBIN 9.6 g/dl (12.0-16.0); LYMPHOCYTES # 2.4 10^3/ul (0.8-2.9); LYMPHOCYTES % 19.1 % (15.0-51.0); MEAN CORPUSCULAR HEMOGLOBIN 31.9 pg (29.0-33.0); MEAN CORPUSCULAR HGB CONC 33.8 g/dl (32.0-37.0); MEAN CORPUSCULAR VOLUME 94.6 fl (82.0-101.0); MEAN PLATELET VOLUME 7.6 fl (7.4-10.4); MONOCYTE # 1.5 10^3/ul (0.3-0.9); MONOCYTES % 11.6 % (0.0-11.0); PLATELET COUNT 298 10^3/UL (140-440); RED CELL DISTRIBUTION WIDTH 20.5 % (11.5-14.5); UNCORRECTED WBC 12.5 10^3/ul (4.8-10.8); WHITE BLOOD COUNT 12.5 10^3/ul (4.8-10.8)
[2016-04-25 05:53] LABS: CONDITION 1; LH ANALYZER COMMENTS 1
[2016-04-25] MEDS: LANSOPRAZOLE 30 MG CAP GTB SCH (06:11)
[2016-04-25] MEDS: INSULIN ASPART [NOVOLOG] 3 ML PEN SC SCH ×3 (06:16→22:00)
[2016-04-25] MEDS: Insulin NOVOLOG SS MILD Algorithm (NPO/TPN/ENTERAL FEEDS) SC SCH ×4 (06:17→23:03)
[2016-04-25 06:26] LABS: POTASSIUM 4.5 mmol/L (3.5-5.1)
[2016-04-25 06:29] LABS: CREATININE 0.7 mg/dl (0.44-1.00)
[2016-04-25] MEDS: SOD CHLORIDE 0.45% 1,000 ML IV SCH (08:12)
[2016-04-25] MEDS: metFORMIN 500 MG TAB GTB SCH ×2 (08:12→21:34)
[2016-04-25] MEDS: CEFEPIME 1GM/50 ML (PMX) 50 ML IVPB SCH ×2 (08:54→23:06)
[2016-04-25] MEDS: CHLORHEXIDINE GLUCONATE 15 ML UD CUP MM SCH ×2 (10:04→21:34)
[2016-04-25] MEDS: FERROUS SULFATE 60 MG/ML 5ML CUP GTB SCH ×2 (10:04→21:37)
[2016-04-25] MEDS: MULTIVITAMINS 5 ML CUP GTB SCH (10:04)
[2016-04-25] MEDS: QUETIAPINE 25 MG TAB GTB SCH ×2 (10:05→21:34)
[2016-04-25] MEDS: LISINOPRIL 5 MG TAB GTB SCH (10:05)
[2016-04-25] MEDS: LACTOBACILLUS RHAMNOSUS CAP GTB SCH ×2 (10:05→21:34)
[2016-04-25] MEDS: clonAZEPAM 0.5 MG TAB GTB SCH ×3 (10:06→21:00)
[2016-04-25] MEDS: NYSTATIN 30 GM POWDER BTL TOP SCH ×2 (10:08→23:07)
[2016-04-25] MEDS: COLLAGENASE 30 GM TUBE TOP SCH (10:08)
--- NOTE | 2016-04-25 12:42 | CONS ---
Date/Time of Note Date/Time of Note DATE: 04/25/16 TIME: 12:41 Assessment/Plan Assessment/Plan Additional Assessment/Plan ASSESSMENT AND PLAN: 1. Anemia, rule out gastrointestinal bleeding, anemia of chronic disease, .retic count high 2. Diabetes mellitus. 3. Cerebrovascular accident. 4. Vent dependent respiratory failure. 5. Paroxysmal atrial fibrillation. 6. Dysphagia status post G-tube. 7. Hypertension. 8. Renal insufficiency. 9. Multiple wounds. 10. Cardiomyopathy. Plan awaiting for occult blood.negative two samples continue PPI transfusion LDH,haptoglobin,pending Consultation Date/Type/Reason Admit Date/Time Apr 21, 2016 at 10:39 Type of Consultation: ID [id number] HR Interval Summary Constitutional: no complaints Exam/Review of Systems Vital Signs Vitals Vital Signs Date Time Temp Pulse Resp B/P Pulse Ox O2 Delivery O2 Flow Rate FiO2 04/25/16 09:17 100 20 Aerosol 8.0 35 04/25/16 07:50 98.4 114/63 93 Intake and Output 04/24/16 04/24/16 04/25/16 15:00 23:00 07:00 Intake Total 50 ml 1835 ml 1640 ml Output Total 1800 ml 1500 ml Balance 50 ml 35 ml 140 ml Exam Constitutional: alert, oriented, well developed Psych: nl mood/affect, no complaints Head: atraumatic, normocephalic Eyes: EOMI, PERRL, nl conjunctiva, nl lids, nl sclera ENMT: nl external ears & nose, nl lips & teeth, nl nasal mucosa & septum Neck: non-tender, supple Respiratory: clear to auscultation, normal air movement Cardiovascular: nl pulses, regular rate and rhythm Gastrointestinal: nl liver, spleen, non-tender, soft Musculoskeletal: nl extremities to inspection, nl gait and stance Extremities: normal pulses Neurological: [employer] II-XII intact, nl mental status, nl speech, nl strength Skin: nl turgor, No rash or lesions Lymph: nl lymph nodes Results Result Diagram: 04/25/16 0450 04/25/16 0450 Results 24 hrs Laboratory Tests Test 04/24/16 14:18 04/24/16 18:04 04/24/16 21:53 04/24/16 23:32 Bedside Glucose 251 H 293 H 313 H 292 H Test 04/25/16 04:50 04/25/16 06:14 04/25/16 08:10 04/25/16 12:16 Anion Gap 14 Basophils # 0.1 Basophils % 0.8 Blood Morphology Comment Blood Urea Nitrogen 20 Calcium Level 9.0 Carbon Dioxide Level 30 Chloride Level 102 Creatinine 0.70 Eosinophils # 1.6 H Eosinophils % 12.5 H Glucose Level 243 H Hematocrit 28.4 #L Hemoglobin 9.6 #L Lymphocytes # 2.4 Lymphocytes % 19.1 Mean Corpuscular Hemoglobin 31.9 Mean Corpuscular Hemoglobin Concent 33.8 Mean Corpuscular Volume 94.6 Mean Platelet Volume 7.6 Monocytes # 1.5 H Monocytes % 11.6 H Neutrophils # 7.0 Neutrophils % 56.0 Nucleated Red Blood Cells # 0.0 Nucleated Red Blood Cells % 0.0 Platelet Count 298 Potassium Level 4.5 Red Blood Count 3.00 #L Red Cell Distribution Width 20.5 H Sodium Level 141 White Blood Count 12.5 H Bedside Glucose 308 H 294 H 344 H Medications Medications Current Medications Carvedilol (Coreg) 6.25 mg BID GTB Last administered on 04/25/16 10:07; Admin Dose 6.25 MG; Start 04/21/16 at 21:00 Chlorhexidine Gluconate (Peridex) 15 ml Q12 MM Last administered on 04/25/16 10:04; Admin Dose 15 ML; Start 04/21/16 at 21:00 Clonazepam (Klonopin) 0.5 mg TID GTB Last administered on 04/25/16 10:06; Admin Dose 0.5 MG; Start 04/21/16 at 21:00 Clonidine (Catapres) 0.1 mg Q6 PRN GTB ELEVATED BLOOD PRESSURE; Start 04/21/16 at 17:00 Fentanyl (Duragesic 50 Mcg/Hr Patch) 1 patch Q72H TRANSDERM Last administered on 04/23/16 22:12; Admin Dose 1 PATCH; Start 04/23/16 at 21:00 Ferrous Sulfate (Feosol Liquid Cup) 330 mg BID GTB Last administered on 10:04; Admin Dose 330 MG; Start 04/21/16 at 21:00 Lactobacillus Acidophilus/ Rhamnosus (Culturelle) 1 cap BID GTB Last administered on 04/25/16 10:05; Admin Dose 1 CAP; Start 04/21/16 at 21:00 Lisinopril (Zestril) 5 mg DAILY GTB Last administered on 04/25/16 10:05; Admin Dose 5 MG; Start 04/21/16 at 18:00 Lorazepam (Ativan) 1 mg Q2HWA PRN GTB ANXIETY; Start 04/21/16 at 17:00 Metoclopramide HCl (Reglan) 10 mg Q6 PRN GTB NAUSEA AND/OR VOMITING; Start 03/26 at 17:00 Nitroglycerin (Nitroglycerin (Sl Tab) 0.4 Mg) 0.4 tab PRN PRN SL CHEST PAIN; Start 04/21/16 at 17:00 Quetiapine Fumarate (Seroquel) 12.5 mg BID GTB Last administered on 04/25/16 10:05; Admin Dose 12.5 MG; Start 04/21/16 at 21:00 Multivitamins 5 ml 5 ml DAILY GTB Last administered on 04/25/16 10:04; Admin Dose 5 ML; Start 04/22/16 at 09:00 Sodium Chloride (1/2 NS) 1,000 ml @ 30 mls/hr Q24H IV Last administered on 08:12; Admin Dose 30 MLS/HR; Start 04/21/16 at 17:30 Miscellaneous Information 1 ea NOTE XX ; Start 04/21/16 at 17:30 Glucose (Glutose) 15 gm Q15M PRN PO DECREASED GLUCOSE; Start 04/21/16 at 17:30 Glucose (Glutose) 22.5 gm Q15M PRN PO DECREASED GLUCOSE; Start 04/21/16 at 17: 30 Dextrose (D50w Syringe) 25 ml Q15M PRN IV DECREASED GLUCOSE; Start 04/21/16 at 17:30 Dextrose (D50w Syringe) 50 ml Q15M PRN IV DECREASED GLUCOSE; Start 04/21/16 at 17:30 Glucagon (Glucagen) 1 mg Q15M PRN IM DECREASED GLUCOSE; Start 04/21/16 at 17:30 Glucose (Glutose) 15 gm Q15M PRN BUCCAL DECREASED GLUCOSE; Start 04/21/16 at 17 :30 Insulin Aspart (Novolog Insulin Pen) (Adult SC Insulin - Mild Algorithm)... Q6 SC Last administered on 04/25/16 12:19; Admin Dose 5 UNIT; Start 04/22/16 at 00:00 Collagenase (Santyl) 1 applic DAILY TOP Last administered on 04/25/16 10:08; Admin Dose 1 APPLIC; Start 04/22/16 at 16:30 Nystatin (Nystatin Powder) 1 applic BID TOP Last administered on 04/25/16 10: 08; Admin Dose 1 APPLIC; Start 04/22/16 at 21:00 Insulin Glargine 10 unit 10 unit QHS SC Last administered on 04/24/16 21:56; Admin Dose 10 UNIT; Start 04/23/16 at 21:00 Cefepime HCl (Maxipime 1gm/50 ml (Pmx)) 50 ml @ 100 mls/hr Q12 IVPB Last administered on 04/25/16 08:54; Admin Dose 100 MLS/HR; Start 04/23/16 at 21:00 Insulin Aspart (Novolog Insulin Pen) 7 unit Q8 SC Last administered on 06:16; Admin Dose 7 UNIT; Start 04/24/16 at 14:00 Lansoprazole (Prevacid) 30 mg DAILY@06 GTB Last administered on 04/25/16 06:11 ; Admin Dose 30 MG; Start 04/25/16 at 06:00 INES TORRE MD Apr 25, 2016 12:42
[2016-04-25] MEDS ORDERED: HYDROCODONE/APAP (5/325) TAB GTB PRN ×2 (15:30)
[2016-04-25] MEDS ORDERED: NALOXONE (0.4 MG/ML) INJ IV ONE (17:00)
[2016-04-25] MEDS ORDERED: NALOXONE (0.4 MG/ML) INJ ONE (17:01)
--- NOTE | 2016-04-25 17:48 | RADRPT ---
PROCEDURE: XR Chest. CLINICAL INDICATION: Shortness of breath. TECHNIQUE: Single frontal view. COMPARISON: 04/24/2016. FINDINGS: The tracheostomy tube is in satisfactory position. There is mild left basilar atelectasis, unchange d. The heart is enlarged. There is calcification in the aorta consistent with atherosclerosis. There is no pleural effusion. There is no pneumothorax. IMPRESSION: 1. Tracheostomy tube. 2. Cardiomegaly and atherosclerosis. 3. Mild left basilar atelectasis. 4. No change from 04/24/2016. RPTAT: QQ .Pete Cruz MD, MD Date Time Electronically viewed and signed by .Pete Cruz MD, MD on 04/25/2016 17:47 .R/
[2016-04-25 17:59] LABS: AADO2 Arterial 365.7 mmHg (7.0-24.0); Allen Test ACCEPTAB; Arterial Base Excess 0.2 mmol/L (-3.0-3); Arterial COHb 1.9 % (0.0-3.0); Arterial Fraction of Oxyhgb 97.3 % (93.0-99.0); Arterial HCO3 29.4 mmol/L (22.0-26.0); Arterial MetHb 0.5 % (0.0-1.5); Arterial Total Hemglobin 15.9 g/dl (12.0-18.0); MODE AMBU BAG
[2016-04-25] MEDS ORDERED: SOD CHLORIDE 0.9% 500 ML IV ONE ×2 (18:00→23:17)
--- NOTE | 2016-04-25 18:12 | PN ---
DATE: 04/25/2016 SUBJECTIVE: The patient, Bruce, remains essentially stable. No new events. PHYSICAL EXAMINATION: VITAL SIGNS: Temperature 98. Pulse is 100, blood pressure 114/60, O2 sat 96% on 8 liters cool aero rina. NECK: Trach site clean and intact. CARDIAC: S1, S2. No added sounds or murmurs. CHEST: Diminished air entry bilaterally with rhonchi. ABDOMEN: Soft, nontender. No guarding or rebound. EXTREMITIES: No cyanosis, clubbing, edema. NEUROLOGICAL: Generalized weakness. LABORATORY DATA: White count 12.5, hemoglobin 9.6, platelets of 298. Glucose elevated at 294. Oth erwise, chemistry within normal limits. IMPRESSION AND PLAN: 1. Gram-negative tracheobronchitis. 2. Chronic respiratory failure. 3. Anemia, likely of chronic disease. 4. History of cerebrovascular accident. 5. Paroxysmal atrial fibrillation. PLAN: 1. Continue with pulmonary toilet. 2. Continue antibiotics. 3. Continue DVT and GI prophylaxis. Dictated By: JORDON WOODWARD/DENNSI Conf#: [id number] DID#: [id number]
--- NOTE | 2016-04-25 18:21 | CONS ---
Date/Time of Note Date/Time of Note DATE: 04/25/16 TIME: 18:07 Assessment/Plan Assessment/Plan Chief Complaint/Hosp Course ID PROGRESS NOTE TOTAL ABX DAY # 3=> Cefepime 24H INTERVAL SUMMARY * Patient was transferred to ICU - symptomatic anemia - s/p PRBCs * (+)Green sputum = PSAR suspected on Cefepime * Obese F w/chronic encephalopathy resting comfortably on the Vent, no fevers, VSS * CXR 04/24/16 IMPRESSION: 1. Tracheostomy tube. 2. Cardiomegaly and atherosclerosis. 3. Mild left basilar atelectasis. * Micro: BCX (-), (-)MRSA, Sputum (+)GNR pending RESPIRATORY CULTURE Preliminary Organism 1 PROTEUS MIRABILIS QUANTITY 1+ Organism 2 GRAM NEGATIVE SARA QUANTITY 1+ P. MIRAB M.I.C. RX --------- --- AMPICILLIN <=2 S CEFOTAXIME S CIPROFLOXACIN <=0.25 S GENTAMICIN <=1 S LEVOFLOXACIN <=0.12 S TOBRAMYCIN <=1 S TRIMETHOPRIM/SULFAMETHOXAZOLE <=20 S PHYSICAL EXAMINATION: GENERAL: 65 yo F - noncommunicative, vented HEENT: Unremarkable NECK: Trach secure to Vetn CHEST: Rise symmetrical - Course BS HEART: RRR ABDOMEN: Soft, large pannus, peg : FC EXTREMITIES: Warm, mild edema ID ASSESSMENT: 65 yo F w/PMHx CVA, craniotomy, chronic encephalopathy, VDRF, Trach, Peg admit with: 1. SIRS w/low grade TMax 99.8, leukocytosis 2. Anemia -> work up in process for GIB 3. GNR tracheobronchitis vs trach colonization => DDx includes silent aspiration pneumonitis without evidence PNA on CXR 4. Multiple wounds/decubs: Stage II wounds under breasts, buttock, wound look clean 5. Paroxysmal atrial fibrillation. 6. Dysphagia status post G-tube. 7. Hypertension w/HTN heart disease: 2D ECHO: LVEF 55 % w/impaired relaxation ( Stage I diastolic dysfunction). 8. Renal insufficiency. (-)MRSA Nares INVASIVES: *Trach, Peg, FC CURRENT ABX: Cefepime #2 ID RECOMMENDATIONS: Continue Cefepime -- f/u on final micro - GREEN sputum = suspect PSAR May need "Double ABX Cover" for PSAR Nystatin to skin folds Topical wound care . . . Problems: Consultation Date/Type/Reason Admit Date/Time Apr 21, 2016 at 10:39 Type of Consultation: ID Exam/Review of Systems Vital Signs Vitals Vital Signs Date Time Temp Pulse Resp B/P Pulse Ox O2 Delivery O2 Flow Rate FiO2 04/25/16 17:44 118 04/25/16 17:44 18 100 100 04/25/16 17:05 101/52 04/25/16 15:39 8.0 04/25/16 13:27 Aerosol 04/25/16 07:50 98.4 Intake and Output 04/24/16 04/24/16 04/25/16 15:00 23:00 07:00 Intake Total 50 ml 1835 ml 1640 ml Output Total 1800 ml 1500 ml Balance 50 ml 35 ml 140 ml Results Result Diagram: 04/25/16 0450 04/25/16 0450 Results 24 hrs Laboratory Tests Test 04/24/16 21:53 04/24/16 23:32 04/25/16 04:50 04/25/16 06:14 Bedside Glucose 313 H 292 H 308 H Anion Gap 14 Basophils # 0.1 Basophils % 0.8 Blood Morphology Comment Blood Urea Nitrogen 20 Calcium Level 9.0 Carbon Dioxide Level 30 Chloride Level 102 Creatinine 0.70 Eosinophils # 1.6 H Eosinophils % 12.5 H Glucose Level 243 H Hematocrit 28.4 #L Hemoglobin 9.6 #L Lymphocytes # 2.4 Lymphocytes % 19.1 Mean Corpuscular Hemoglobin 31.9 Mean Corpuscular Hemoglobin Concent 33.8 Mean Corpuscular Volume 94.6 Mean Platelet Volume 7.6 Monocytes # 1.5 H Monocytes % 11.6 H Neutrophils # 7.0 Neutrophils % 56.0 Nucleated Red Blood Cells # 0.0 Nucleated Red Blood Cells % 0.0 Platelet Count 298 Potassium Level 4.5 Red Blood Count 3.00 #L Red Cell Distribution Width 20.5 H Sodium Level 141 White Blood Count 12.5 H Test 04/25/16 08:10 04/25/16 12:16 04/25/16 14:15 04/25/16 16:54 Bedside Glucose 294 H 344 H 332 H 319 H Test 04/25/16 17:00 Arterial Blood HCO3 29.4 H Arterial Blood Base Excess 0.2 Arterial Blood Oxygen Saturation 99.7 H Renard Test ACCEPTAB Arterial Blood Gas Puncture Site Left Radial Arterial Blood Carboxyhemoglobin 1.9 Arterial Blood Date Drawn 04/25/2016 5:15:00 PM Arterial Blood Methemoglobin 0.5 Arterial Blood pCO2 (Temp correct) 67.1 H Arterial Blood pH (Temp corrected) 7.259 *L Arterial Blood pO2 (Temp corrected) 280.2 H Blood Gas A-a O2 Differential 365.7 H Blood Gas Critical Value Read Back Tor Boyer Blood Gas Modality AMBU BAG Blood Gas Notified Time 04/25/2016 5:29:00 PM Blood Gas Notified Whom TK Blood Gas Specimen Source Blood arterial Blood Gas Temperature 37.0 FiO2 100.0 Oxyhemoglobin Percent 97.3 Total Hemoglobin 15.9 Medications Medications Current Medications Carvedilol (Coreg) 6.25 mg BID GTB Last administered on 04/25/16 10:07; Admin Dose 6.25 MG; Start 04/21/16 at 21:00 Chlorhexidine Gluconate (Peridex) 15 ml Q12 MM Last administered on 04/25/16 10:04; Admin Dose 15 ML; Start 04/21/16 at 21:00 Clonazepam (Klonopin) 0.5 mg TID GTB Last administered on 04/25/16 12:52; Admin Dose 0.5 MG; Start 04/21/16 at 21:00 Clonidine (Catapres) 0.1 mg Q6 PRN GTB ELEVATED BLOOD PRESSURE; Start 04/21/16 at 17:00 Fentanyl (Duragesic 50 Mcg/Hr Patch) 1 patch Q72H TRANSDERM Last administered on 04/23/16 22:12; Admin Dose 1 PATCH; Start 04/23/16 at 21:00 Ferrous Sulfate (Feosol Liquid Cup) 330 mg BID GTB Last administered on 10:04; Admin Dose 330 MG; Start 04/21/16 at 21:00 Lactobacillus Acidophilus/ Rhamnosus (Culturelle) 1 cap BID GTB Last administered on 04/25/16 10:05; Admin Dose 1 CAP; Start 04/21/16 at 21:00 Lisinopril (Zestril) 5 mg DAILY GTB Last administered on 04/25/16 10:05; Admin Dose 5 MG; Start 04/21/16 at 18:00 Lorazepam (Ativan) 1 mg Q2HWA PRN GTB ANXIETY; Start 04/21/16 at 17:00 Metoclopramide HCl (Reglan) 10 mg Q6 PRN GTB NAUSEA AND/OR VOMITING; Start 03/26 at 17:00 Nitroglycerin (Nitroglycerin (Sl Tab) 0.4 Mg) 0.4 tab PRN PRN SL CHEST PAIN; Start 04/21/16 at 17:00 Quetiapine Fumarate (Seroquel) 12.5 mg BID GTB Last administered on 04/25/16 10:05; Admin Dose 12.5 MG; Start 04/21/16 at 21:00 Multivitamins 5 ml 5 ml DAILY GTB Last administered on 04/25/16 10:04; Admin Dose 5 ML; Start 04/22/16 at 09:00 Sodium Chloride (1/2 NS) 1,000 ml @ 30 mls/hr Q24H IV Last administered on 08:12; Admin Dose 30 MLS/HR; Start 04/21/16 at 17:30 Miscellaneous Information 1 ea NOTE XX ; Start 04/21/16 at 17:30 Glucose (Glutose) 15 gm Q15M PRN PO DECREASED GLUCOSE; Start 04/21/16 at 17:30 Glucose (Glutose) 22.5 gm Q15M PRN PO DECREASED GLUCOSE; Start 04/21/16 at 17: 30 Dextrose (D50w Syringe) 25 ml Q15M PRN IV DECREASED GLUCOSE; Start 04/21/16 at 17:30 Dextrose (D50w Syringe) 50 ml Q15M PRN IV DECREASED GLUCOSE; Start 04/21/16 at 17:30 Glucagon (Glucagen) 1 mg Q15M PRN IM DECREASED GLUCOSE; Start 04/21/16 at 17:30 Glucose (Glutose) 15 gm Q15M PRN BUCCAL DECREASED GLUCOSE; Start 04/21/16 at 17 :30 Insulin Aspart (Novolog Insulin Pen) (Adult SC Insulin - Mild Algorithm)... Q6 SC Last administered on 04/25/16 12:19; Admin Dose 5 UNIT; Start 04/22/16 at 00:00 Collagenase (Santyl) 1 applic DAILY TOP Last administered on 04/25/16 10:08; Admin Dose 1 APPLIC; Start 04/22/16 at 16:30 Nystatin (Nystatin Powder) 1 applic BID TOP Last administered on 04/25/16 10: 08; Admin Dose 1 APPLIC; Start 04/22/16 at 21:00 Insulin Glargine 10 unit 10 unit QHS SC Last administered on 04/24/16 21:56; Admin Dose 10 UNIT; Start 04/23/16 at 21:00 Cefepime HCl (Maxipime 1gm/50 ml (Pmx)) 50 ml @ 100 mls/hr Q12 IVPB Last administered on 04/25/16 08:54; Admin Dose 100 MLS/HR; Start 04/23/16 at 21:00 Insulin Aspart (Novolog Insulin Pen) 7 unit Q8 SC Last administered on 14:20; Admin Dose 7 UNIT; Start 04/24/16 at 14:00 Lansoprazole 30 mg 30 mg DAILY@06 GTB Last administered on 04/25/16 06:11; Admin Dose 30 MG; Start 04/25/16 at 06:00 Sodium Chloride (NS) 500 ml @ 250 mls/hr Q2H ONCE IV ; Start 04/25/16 at 18:00 ; Stop 04/25/16 at 19:59 AZUCENA NEFF NP Apr 25, 2016 18:18
--- NOTE | 2016-04-25 19:18 | PN ---
Date/Time of Note Date/Time of Note DATE: 04/25/16 TIME: 19:05 Assessment/Plan VTE Prophylaxis VTE Prophylaxis Intervention: SCD's Lines/Catheters IV Catheter Type (from Nrsg): Peripheral IV Central line still needed: Yes Urinary Cath still in place: Yes Reason Cath still needed: urinary retention Assessment/Plan Chief Complaint/Hosp Course ASSESSMENT AND PLAN: 1. Acute on chronic respiratory failure, The patient is followed by Dr. Mcbride 's group in pulmonology consultation anemia. Continue bronchodilators pulmonary total toilet and ventilator support. 2. Anemia, the patient is followed by Dr. Dowd from gastroenterology consultation. Continue Protonix. Stool for OB is negative. The patient has most likely anemia of chronic disease. Continue to monitor hemoglobin and hematocrit. 3. Gram-negative rods tracheobronchitis. Patient is followed by Dr. Hernadez in infection disease consultation. Continue antibiotics per ID. 4. Acute kidney injury secondary to dehydration, resolved. Continue to monitor BUN and creatinine. 5. Diabetes mellitus by history. Continue NovoLog and Lantus. 6. Multiple wounds. Continue to follow up wound care recommendations. Continue air mattress and local wound care. 7. Congestive heart failure by history. Continue to monitor intake and output. 8. Chronic encephalopathy with history of craniotomy. Discussed with family patient's condition and plan of care, all questions answered. Continue to Protonix for peptic ulcer disease prophylaxis and sequential compression device for deep venous thrombosis prophylaxis. Further recommendations based on clinical course. Plan of care discussed with Dr. Muro Problems: Subjective 24 Hr Interval Summary Free Text/Dictation I received a call from the nurse earlier today stating that patient family at the bedside stating that patient takes [place] 10/325 milligrams tablet in a shelter. Per family patient is in pain. Aware the patient has a codeine allergy. [place] 5/325 was given. The patient has copious thick secretions but was comfortable on cool aerosol mist via t-tube. Patient developed labored breathing and became lethargic. Rapid response was called. Patient was given Narcan, stat ABG and chest x-ray, patient was placed on the ventilator support and transferred to ICU. Exam/Review of Systems Vital Signs Vitals Vital Signs Date Time Temp Pulse Resp B/P Pulse Ox O2 Delivery O2 Flow Rate FiO2 04/25/16 18:27 95/75 100 Trach Collar 04/25/16 18:15 113 23 04/25/16 17:44 100 04/25/16 15:39 8.0 04/25/16 07:50 98.4 Intake and Output 04/24/16 04/24/16 04/25/16 15:00 23:00 07:00 Intake Total 50 ml 1835 ml 1640 ml Output Total 1800 ml 1500 ml Balance 50 ml 35 ml 140 ml Exam GENERAL: This is a well-developed, obese female who currently is awake. HEENT: Head is atraumatic, normocephalic. PERRLA. NECK: Supple. No JVD. The patient's tracheostomy is at the base of the neck which is clear. LUNGS: Scattered rhonchi bilaterally, slightly diminished at the bases. HEART: Normal S1, S2. No murmurs, gallops, clicks, rubs noted. ABDOMEN: Round, soft, nondistended, nontender. G-tube in place. EXTREMITIES: No edema. NEUROLOGIC: The patient opens eyes and is awake. Results Result Diagram: 04/25/16 0450 04/25/16 0450 Results 24 hrs Laboratory Tests Test 04/24/16 21:53 04/24/16 23:32 04/25/16 04:50 04/25/16 06:14 Bedside Glucose 313 H 292 H 308 H Anion Gap 14 Basophils # 0.1 Basophils % 0.8 Blood Morphology Comment Blood Urea Nitrogen 20 Calcium Level 9.0 Carbon Dioxide Level 30 Chloride Level 102 Creatinine 0.70 Eosinophils # 1.6 H Eosinophils % 12.5 H Glucose Level 243 H Hematocrit 28.4 #L Hemoglobin 9.6 #L Lymphocytes # 2.4 Lymphocytes % 19.1 Mean Corpuscular Hemoglobin 31.9 Mean Corpuscular Hemoglobin Concent 33.8 Mean Corpuscular Volume 94.6 Mean Platelet Volume 7.6 Monocytes # 1.5 H Monocytes % 11.6 H Neutrophils # 7.0 Neutrophils % 56.0 Nucleated Red Blood Cells # 0.0 Nucleated Red Blood Cells % 0.0 Platelet Count 298 Potassium Level 4.5 Red Blood Count 3.00 #L Red Cell Distribution Width 20.5 H Sodium Level 141 White Blood Count 12.5 H Test 04/25/16 08:10 04/25/16 12:16 04/25/16 14:15 1/16/17 16:54 Bedside Glucose 294 H 344 H 332 H 319 H Test 04/25/16 17:00 Arterial Blood HCO3 29.4 H Arterial Blood Base Excess 0.2 Arterial Blood Oxygen Saturation 99.7 H Renard Test ACCEPTAB Arterial Blood Gas Puncture Site Left Radial Arterial Blood Carboxyhemoglobin 1.9 Arterial Blood Date Drawn 04/25/2016 5:15:00 PM Arterial Blood Methemoglobin 0.5 Arterial Blood pCO2 (Temp correct) 67.1 H Arterial Blood pH (Temp corrected) 7.259 *L Arterial Blood pO2 (Temp corrected) 280.2 H Blood Gas A-a O2 Differential 365.7 H Blood Gas Critical Value Read Back Tor Boyer Blood Gas Modality AMBU BAG Blood Gas Notified Time 04/25/2016 5:29:00 PM Blood Gas Notified Whom TK Blood Gas Specimen Source Blood arterial Blood Gas Temperature 37.0 FiO2 100.0 Oxyhemoglobin Percent 97.3 Total Hemoglobin 15.9 Medications Medications Current Medications Carvedilol (Coreg) 6.25 mg BID GTB Last administered on 04/25/16 10:07; Admin Dose 6.25 MG; Start 04/21/16 at 21:00 Chlorhexidine Gluconate (Peridex) 15 ml Q12 MM Last administered on 04/25/16 10:04; Admin Dose 15 ML; Start 04/21/16 at 21:00 Clonazepam (Klonopin) 0.5 mg TID GTB Last administered on 04/25/16 12:52; Admin Dose 0.5 MG; Start 04/21/16 at 21:00 Clonidine (Catapres) 0.1 mg Q6 PRN GTB ELEVATED BLOOD PRESSURE; Start 04/21/16 at 17:00 Fentanyl (Duragesic 50 Mcg/Hr Patch) 1 patch Q72H TRANSDERM Last administered on 04/23/16 22:12; Admin Dose 1 PATCH; Start 04/23/16 at 21:00 Ferrous Sulfate (Feosol Liquid Cup) 330 mg BID GTB Last administered on 10:04; Admin Dose 330 MG; Start 04/21/16 at 21:00 Lactobacillus Acidophilus/ Rhamnosus (Culturelle) 1 cap BID GTB Last administered on 04/25/16 10:05; Admin Dose 1 CAP; Start 04/21/16 at 21:00 Lisinopril (Zestril) 5 mg DAILY GTB Last administered on 04/25/16 10:05; Admin Dose 5 MG; Start 04/21/16 at 18:00 Lorazepam (Ativan) 1 mg Q2HWA PRN GTB ANXIETY; Start 04/21/16 at 17:00 Metoclopramide HCl (Reglan) 10 mg Q6 PRN GTB NAUSEA AND/OR VOMITING; Start 03/26 at 17:00 Nitroglycerin (Nitroglycerin (Sl Tab) 0.4 Mg) 0.4 tab PRN PRN SL CHEST PAIN; Start 04/21/16 at 17:00 Quetiapine Fumarate (Seroquel) 12.5 mg BID GTB Last administered on 04/25/16 10:05; Admin Dose 12.5 MG; Start 04/21/16 at 21:00 Multivitamins 5 ml 5 ml DAILY GTB Last administered on 04/25/16 10:04; Admin Dose 5 ML; Start 04/22/16 at 09:00 Sodium Chloride (1/2 NS) 1,000 ml @ 30 mls/hr Q24H IV Last administered on 08:12; Admin Dose 30 MLS/HR; Start 04/21/16 at 17:30 Miscellaneous Information 1 ea NOTE XX ; Start 04/21/16 at 17:30 Glucose (Glutose) 15 gm Q15M PRN PO DECREASED GLUCOSE; Start 04/21/16 at 17:30 Glucose (Glutose) 22.5 gm Q15M PRN PO DECREASED GLUCOSE; Start 04/21/16 at 17: 30 Dextrose (D50w Syringe) 25 ml Q15M PRN IV DECREASED GLUCOSE; Start 04/21/16 at 17:30 Dextrose (D50w Syringe) 50 ml Q15M PRN IV DECREASED GLUCOSE; Start 04/21/16 at 17:30 Glucagon (Glucagen) 1 mg Q15M PRN IM DECREASED GLUCOSE; Start 04/21/16 at 17:30 Glucose (Glutose) 15 gm Q15M PRN BUCCAL DECREASED GLUCOSE; Start 04/21/16 at 17 :30 Insulin Aspart (Novolog Insulin Pen) (Adult SC Insulin - Mild Algorithm)... Q6 SC Last administered on 04/25/16 12:19; Admin Dose 5 UNIT; Start 04/22/16 at 00:00 Collagenase (Santyl) 1 applic DAILY TOP Last administered on 04/25/16 10:08; Admin Dose 1 APPLIC; Start 04/22/16 at 16:30 Nystatin (Nystatin Powder) 1 applic BID TOP Last administered on 04/25/16 10: 08; Admin Dose 1 APPLIC; Start 04/22/16 at 21:00 Insulin Glargine 10 unit 10 unit QHS SC Last administered on 04/24/16 21:56; Admin Dose 10 UNIT; Start 04/23/16 at 21:00 Cefepime HCl (Maxipime 1gm/50 ml (Pmx)) 50 ml @ 100 mls/hr Q12 IVPB Last administered on 04/25/16 08:54; Admin Dose 100 MLS/HR; Start 04/23/16 at 21:00 Insulin Aspart (Novolog Insulin Pen) 7 unit Q8 SC Last administered on 14:20; Admin Dose 7 UNIT; Start 04/24/16 at 14:00 Lansoprazole 30 mg 30 mg DAILY@06 GTB Last administered on 04/25/16 06:11; Admin Dose 30 MG; Start 04/25/16 at 06:00 Sodium Chloride (NS) 500 ml @ 250 mls/hr Q2H ONCE IV ; Start 04/25/16 at 18:00 ; Stop 04/25/16 at 19:59 DELIO GUILLERMO Apr 25, 2016 19:16
[2016-04-25] MEDS: ALBUTEROL/IPRATROPIUM (NEB) 3 ML AMP NEB PRN (19:39)
[2016-04-25] MEDS: INSULIN GLARGINE [LANtus] 3 ML PEN SC SCH (23:03)
[2016-04-25] MEDS ORDERED: NORepinephrine 8MG/250 ML (PMX 250 ML ONE (23:22)
[2016-04-25] MEDS ORDERED: NORepinephrine 8MG/250 ML (PMX 250 ML IV SCH (23:30)
[2016-04-26] VITALS (41 sets, daily range): BP systolic 97–160; BP diastolic 50–118; PULSE 93–126; RESP 16–31
[2016-04-26] MEDS: ACETYLCYSTEINE 20% 4 ML VIAL NEB SCH ×4 (01:12→19:47)
[2016-04-26] MEDS: ALBUTEROL/IPRATROPIUM (NEB) 3 ML AMP NEB PRN ×4 (01:12→19:47)
[2016-04-26] MEDS: LANSOPRAZOLE 30 MG CAP GTB SCH (06:44)
[2016-04-26] MEDS: INSULIN ASPART [NOVOLOG] 3 ML PEN SC SCH ×3 (06:53→21:44)
[2016-04-26 06:54] LABS: CREATININE 0.68 mg/dl (0.44-1.00)
[2016-04-26 06:55] LABS: CALCIUM 8.7 mg/dl (8.4-10.2)
[2016-04-26] MEDS: Insulin NOVOLOG SS MILD Algorithm (NPO/TPN/ENTERAL FEEDS) SC SCH ×3 (07:41→17:48)
[2016-04-26] MEDS: SOD CHLORIDE 0.45% 1,000 ML IV SCH (07:50)
[2016-04-26 08:22] LABS: HEMATOCRIT 29.4 % (37.0-47.0); HEMOGLOBIN 9.9 g/dl (12.0-16.0); MEAN CORPUSCULAR HEMOGLOBIN 32.3 pg (29.0-33.0); MEAN CORPUSCULAR HGB CONC 33.7 g/dl (32.0-37.0); MEAN CORPUSCULAR VOLUME 95.8 fl (82.0-101.0); RED BLOOD COUNT 3.07 10^6/ul (4.20-5.40); RED CELL DISTRIBUTION WIDTH 19.9 % (11.5-14.5); UNCORRECTED WBC 15.1 10^3/ul (4.8-10.8); WHITE BLOOD COUNT 15.1 10^3/ul (4.8-10.8)
[2016-04-26 08:25] LABS: MEAN PLATELET VOLUME 8.2 fl (7.4-10.4); PLATELET COUNT 238 10^3/UL (140-440)
[2016-04-26 08:26] LABS: CONDITION 1; LH ANALYZER COMMENTS 1
[2016-04-26] MEDS: FERROUS SULFATE 60 MG/ML 5ML CUP GTB SCH ×2 (08:53→21:33)
[2016-04-26] MEDS: CEFEPIME 1GM/50 ML (PMX) 50 ML IVPB SCH ×2 (08:54→21:28)
[2016-04-26] MEDS: NYSTATIN 30 GM POWDER BTL TOP SCH ×2 (08:54→21:33)
[2016-04-26] MEDS: CHLORHEXIDINE GLUCONATE 15 ML UD CUP MM SCH ×2 (08:54→21:33)
[2016-04-26] MEDS: MULTIVITAMINS 5 ML CUP GTB SCH (08:54)
[2016-04-26] MEDS: LACTOBACILLUS RHAMNOSUS CAP GTB SCH ×2 (10:13→21:32)
--- NOTE | 2016-04-26 11:02 | CONS ---
Date/Time of Note Date/Time of Note DATE: 04/26/16 TIME: 11:00 Consult Date/Type/Reason Admit Date/Time Apr 21, 2016 at 10:39 Type of Consultation: pulmonary Subjective Patient transfer to intensive care yesterday for increasing shortness of breath and increasing secretions Requiring mechanical ventilation Currently hemodynamically stable Objective Vital Signs Date Time Temp Pulse Resp B/P Pulse Ox O2 Delivery O2 Flow Rate FiO2 04/26/16 08:00 113 04/26/16 07:15 20 102/65 100 04/26/16 04:52 40 04/26/16 04:00 98.2 Trach Collar 04/25/16 15:39 8.0 Intake and Output 04/25/16 04/25/16 04/26/16 15:00 23:00 07:00 Intake Total 140 ml 0 ml 1762 ml Output Total 200 ml 300 ml Balance 140 ml -200 ml 1462 ml PHYSICAL EXAMINATION: VITAL SIGNS: As above Respiratory Diminished air entry bilaterally with rhonchi. ABDOMEN: Soft, nontender. No guarding or rebound. EXTREMITIES: No cyanosis, clubbing, edema. NEUROLOGICAL: Generalized weakness. Results/Medications Result Diagram: 04/26/16 0537 04/26/16 0538 Results 24 hrs Laboratory Tests Test 04/25/16 12:16 04/25/16 14:15 04/25/16 16:54 04/25/16 17:00 Bedside Glucose 344 H 332 H 319 H Arterial Blood HCO3 29.4 H Arterial Blood Base Excess 0.2 Arterial Blood Oxygen Saturation 99.7 H Renard Test ACCEPTAB Arterial Blood Gas Puncture Site Left Radial Arterial Blood Carboxyhemoglobin 1.9 Arterial Blood Date Drawn 04/25/2016 5:15:00 PM Arterial Blood Methemoglobin 0.5 Arterial Blood pCO2 (Temp correct) 67.1 H Arterial Blood pH (Temp corrected) 7.259 *L Arterial Blood pO2 (Temp corrected) 280.2 H Blood Gas A-a O2 Differential 365.7 H Blood Gas Critical Value Read Back Tor Boyer Blood Gas Modality AMBU BAG Blood Gas Notified Time 04/25/2016 5:29:00 PM Blood Gas Notified Whom TK Blood Gas Specimen Source Blood arterial Blood Gas Temperature 37.0 FiO2 100.0 Oxyhemoglobin Percent 97.3 Total Hemoglobin 15.9 Test 04/25/16 22:02 04/26/16 05:37 04/26/16 05:38 04/26/16 06:49 Bedside Glucose 244 H 344 H Basophils # Pending Basophils % Pending Blood Morphology Comment Eosinophils # Pending Eosinophils % Pending Hematocrit 29.4 L Hemoglobin 9.9 L Lymphocytes # Pending Lymphocytes % Pending Mean Corpuscular Hemoglobin 32.3 Mean Corpuscular Hemoglobin Concent 33.7 Mean Corpuscular Volume 95.8 Mean Platelet Volume 8.2 Monocytes # Pending Monocytes % Pending Neutrophils # Pending Neutrophils % Pending Nucleated Red Blood Cells # Pending Nucleated Red Blood Cells % Pending Platelet Count 238 # Red Blood Count 3.07 L Red Cell Distribution Width 19.9 H White Blood Count 15.1 #H Anion Gap 16 Blood Urea Nitrogen 24 H Calcium Level 8.7 Carbon Dioxide Level 27 Chloride Level 102 Creatinine 0.68 Glucose Level 278 H Potassium Level 5.0 Sodium Level 140 Medications Current Medications Chlorhexidine Gluconate (Peridex) 15 ml Q12 MM Last administered on 04/26/16 08:54; Admin Dose 15 ML; Start 04/21/16 at 21:00 Ferrous Sulfate (Feosol Liquid Cup) 330 mg BID GTB Last administered on 08:53; Admin Dose 330 MG; Start 04/21/16 at 21:00 Lactobacillus Acidophilus/ Rhamnosus (Culturelle) 1 cap BID GTB Last administered on 04/26/16 10:13; Admin Dose 1 CAP; Start 04/21/16 at 21:00 Metoclopramide HCl (Reglan) 10 mg Q6 PRN GTB NAUSEA AND/OR VOMITING; Start 03/26 at 17:00 Multivitamins 5 ml 5 ml DAILY GTB Last administered on 04/26/16 08:54; Admin Dose 5 ML; Start 04/22/16 at 09:00 Sodium Chloride (1/2 NS) 1,000 ml @ 30 mls/hr Q24H IV Last administered on 07:50; Admin Dose 30 MLS/HR; Start 04/21/16 at 17:30 Miscellaneous Information 1 ea NOTE XX ; Start 04/21/16 at 17:30 Glucose (Glutose) 15 gm Q15M PRN PO DECREASED GLUCOSE; Start 04/21/16 at 17:30 Glucose (Glutose) 22.5 gm Q15M PRN PO DECREASED GLUCOSE; Start 04/21/16 at 17: 30 Dextrose (D50w Syringe) 25 ml Q15M PRN IV DECREASED GLUCOSE; Start 04/21/16 at 17:30 Dextrose (D50w Syringe) 50 ml Q15M PRN IV DECREASED GLUCOSE; Start 04/21/16 at 17:30 Glucagon (Glucagen) 1 mg Q15M PRN IM DECREASED GLUCOSE; Start 04/21/16 at 17:30 Glucose (Glutose) 15 gm Q15M PRN BUCCAL DECREASED GLUCOSE; Start 04/21/16 at 17 :30 Insulin Aspart (Novolog Insulin Pen) (Adult SC Insulin - Mild Algorithm)... Q6 SC Last administered on 04/26/16 07:41; Admin Dose 5 UNIT; Start 04/22/16 at 00:00 Collagenase (Santyl) 1 applic DAILY TOP Last administered on 04/25/16 10:08; Admin Dose 1 APPLIC; Start 04/22/16 at 16:30 Nystatin (Nystatin Powder) 1 applic BID TOP Last administered on 04/26/16 08: 54; Admin Dose 1 APPLIC; Start 04/22/16 at 21:00 Insulin Glargine 10 unit 10 unit QHS SC Last administered on 04/25/16 23:03; Admin Dose 10 UNIT; Start 04/23/16 at 21:00 Cefepime HCl (Maxipime 1gm/50 ml (Pmx)) 50 ml @ 100 mls/hr Q12 IVPB Last administered on 04/26/16 08:54; Admin Dose 100 MLS/HR; Start 04/23/16 at 21:00 Insulin Aspart (Novolog Insulin Pen) 7 unit Q8 SC Last administered on 06:53; Admin Dose 7 UNIT; Start 04/24/16 at 14:00 Lansoprazole 30 mg 30 mg DAILY@06 GTB Last administered on 04/26/16 06:44; Admin Dose 30 MG; Start 04/25/16 at 06:00 Norepinephrine 250 ml @ 1.875 mls/ hr TITRATE IV Last administered on 00:26; Admin Dose 28.12 MLS/HR; Start 04/25/16 at 23:30 Norepinephrine/ Dextrose (Levophed/D5W) 500 ml @ 1.87 mls/hr TITRATE IV ; Start 04/26/16 at 00:30 Assessment/Plan Chief Complaint/Hosp Course IMPRESSION: A 65-year-old female with: 1. Chronic respiratory failure, tracheostomy dependent. Probable tracheobronchitis/ pneumonia 2. Anemia. Rule out gastrointestinal bleed. 3. Encephalopathy. Chronic 4. Acute renal failure. Likely prerenal now improved with hydration 5. Dehydration. 6. Hyperkalemia. Now resolved. 7. History of diabetes mellitus. 8. History of hypertension. 9. Status post craniotomy. 10. History of congestive heart failure. 11. History of hypertension. RECOMMENDATIONS: 1. Check stool for occult blood. 2. Transfuse packed RBC p.r.n. GI recommendations. Would proceed with endoscopy if needed on mechanical ventilation. 3. Gastrointestinal evaluation noted. 4. Proton pump inhibitor. 5. Continue tracheostomy care. Add Mucomyst to medications 6. Oxygen. 7. Followup labs. 8. Continue antibiotics Consider Grant evaluation Problems: JORDON MONSON MD, [facility] Apr 26, 2016 11:02
[2016-04-26 11:19] LABS: BASOPHIL # 0.2 10^3/ul (0.0-0.1); EOSINOPHILS # 0.9 10^3/ul (0.0-0.5); LYMPHOCYTES # 3.5 10^3/ul (0.8-2.9); MYELOCYTES # 0.2; NEUTROPHIL # 7.4 10^3/ul (1.6-7.5)
--- NOTE | 2016-04-26 11:37 | PN ---
Date/Time of Note Date/Time of Note DATE: 04/26/16 TIME: 11:28 Assessment/Plan VTE Prophylaxis VTE Prophylaxis Intervention: LMWH, SCD's Lines/Catheters IV Catheter Type (from Nrs): Peripheral IV Urinary Cath still in place: Yes Reason Cath still needed: urinary retention, skin wounds contaminated by urine Assessment/Plan Assessment/Plan 1. Acute on chronic respiratory failure, The patient is followed by Dr. Mcbride 's group in pulmonology consultation anemia. Continue bronchodilators pulmonary total toilet and ventilator support. 2. Anemia, the patient is followed by Dr. Dowd from gastroenterology consultation. Continue Protonix. Stool for OB is negative. The patient has most likely anemia of chronic disease. Continue to monitor hemoglobin and hematocrit. NO active blood loss. 3. Gram-negative rods tracheobronchitis. Patient is followed by Dr. Hernadez in infection disease consultation. Continue antibiotics per ID. 4. Acute kidney injury secondary to dehydration, resolved. Continue to monitor BUN and creatinine. 5. Diabetes mellitus by history. Continue NovoLog and Lantus. 6. Multiple wounds. Continue to follow up wound care recommendations. Continue air mattress and local wound care. 7. Congestive heart failure by history. Continue to monitor intake and output. 8. Chronic encephalopathy with history of craniotomy. Discussed with family, Daughter who is at bedside. patient's condition and plan of care, all questions answered. Continue to Protonix for peptic ulcer disease prophylaxis and sequential compression device and start Lovenox Low dose for deep venous thrombosis prophylaxis. Subjective 24 Hr Interval Summary Free Text/Dictation Hypotension resolved, more awake and responsive. Less O2 requirement. Pulm/CC cleared for transfer out of ICU Subjective hx not possible: pt critical status Constitutional: requiring O2 Exam/Review of Systems Vital Signs Vitals Vital Signs Date Time Temp Pulse Resp B/P Pulse Ox O2 Delivery O2 Flow Rate FiO2 04/26/16 11:00 106 24 123/79 96 04/26/16 08:00 99.8 04/26/16 04:52 40 04/26/16 04:00 Trach Collar 04/25/16 15:39 8.0 Intake and Output 04/25/16 04/25/16 04/26/16 15:00 23:00 07:00 Intake Total 140 ml 0 ml 1762 ml Output Total 200 ml 300 ml Balance 140 ml -200 ml 1462 ml Exam Constitutional: No distress ENMT: mucosa pink and moist, other (Trach) Neck: No jvd Respiratory: crackles/rales, No diminished breath sounds, No labored breathing Cardiovascular: other (Tachycardia, mild) Gastrointestinal: non-tender, soft, No rebound or guarding Extremities: edema Neurological: other (baseline ), No unresponsive Skin: No diaphoresis, No rash or lesions Results Result Diagram: 04/26/16 0537 04/26/16 0538 Results 24 hrs Laboratory Tests Test 04/25/16 12:16 04/25/16 14:15 04/25/16 16:54 04/25/16 17:00 Bedside Glucose 344 H 332 H 319 H Arterial Blood HCO3 29.4 H Arterial Blood Base Excess 0.2 Arterial Blood Oxygen Saturation 99.7 H Renard Test ACCEPTAB Arterial Blood Gas Puncture Site Left Radial Arterial Blood Carboxyhemoglobin 1.9 Arterial Blood Date Drawn 04/25/2016 5:15:00 PM Arterial Blood Methemoglobin 0.5 Arterial Blood pCO2 (Temp correct) 67.1 H Arterial Blood pH (Temp corrected) 7.259 *L Arterial Blood pO2 (Temp corrected) 280.2 H Blood Gas A-a O2 Differential 365.7 H Blood Gas Critical Value Read Back Tor Boyer Blood Gas Modality AMBU BAG Blood Gas Notified Time 04/25/2016 5:29:00 PM Blood Gas Notified Whom TK Blood Gas Specimen Source Blood arterial Blood Gas Temperature 37.0 FiO2 100.0 Oxyhemoglobin Percent 97.3 Total Hemoglobin 15.9 Test 04/25/16 22:02 04/26/16 05:37 04/26/16 05:38 04/26/16 06:49 Bedside Glucose 244 H 344 H Band Neutrophils % 6.0 H Basophils # 0.2 H Basophils % 1.0 Blood Morphology Comment Differential Comment MANUAL DIFF Eosinophils # 0.9 H Eosinophils % 6.0 Hematocrit 29.4 L Hemoglobin 9.9 L Lymphocytes # 3.5 H Lymphocytes % 23.0 Mean Corpuscular Hemoglobin 32.3 Mean Corpuscular Hemoglobin Concent 33.7 Mean Corpuscular Volume 95.8 Mean Platelet Volume 8.2 Metamyelocytes # 0.2 Metamyelocytes % 1.0 H Monocytes # 2.0 H Monocytes % 13.0 H Myelocytes # 0.2 Myelocytes % 1.0 H Neutrophils # 7.4 Neutrophils % 49.0 Nucleated Red Blood Cells # Nucleated Red Blood Cells % 2.0 H Platelet Count 238 # Red Blood Count 3.07 L Red Cell Distribution Width 19.9 H White Blood Count 15.1 #H Anion Gap 16 Blood Urea Nitrogen 24 H Calcium Level 8.7 Carbon Dioxide Level 27 Chloride Level 102 Creatinine 0.68 Glucose Level 278 H Potassium Level 5.0 Sodium Level 140 Medications Medications Current Medications Chlorhexidine Gluconate (Peridex) 15 ml Q12 MM Last administered on 04/26/16 08:54; Admin Dose 15 ML; Start 04/21/16 at 21:00 Ferrous Sulfate (Feosol Liquid Cup) 330 mg BID GTB Last administered on 08:53; Admin Dose 330 MG; Start 04/21/16 at 21:00 Lactobacillus Acidophilus/ Rhamnosus (Culturelle) 1 cap BID GTB Last administered on 04/26/16 10:13; Admin Dose 1 CAP; Start 04/21/16 at 21:00 Metoclopramide HCl (Reglan) 10 mg Q6 PRN GTB NAUSEA AND/OR VOMITING; Start 03/26 at 17:00 Multivitamins 5 ml 5 ml DAILY GTB Last administered on 04/26/16 08:54; Admin Dose 5 ML; Start 04/22/16 at 09:00 Sodium Chloride (1/2 NS) 1,000 ml @ 30 mls/hr Q24H IV Last administered on 07:50; Admin Dose 30 MLS/HR; Start 04/21/16 at 17:30 Miscellaneous Information 1 ea NOTE XX ; Start 04/21/16 at 17:30 Glucose (Glutose) 15 gm Q15M PRN PO DECREASED GLUCOSE; Start 04/21/16 at 17:30 Glucose (Glutose) 22.5 gm Q15M PRN PO DECREASED GLUCOSE; Start 04/21/16 at 17: 30 Dextrose (D50w Syringe) 25 ml Q15M PRN IV DECREASED GLUCOSE; Start 04/21/16 at 17:30 Dextrose (D50w Syringe) 50 ml Q15M PRN IV DECREASED GLUCOSE; Start 04/21/16 at 17:30 Glucagon (Glucagen) 1 mg Q15M PRN IM DECREASED GLUCOSE; Start 04/21/16 at 17:30 Glucose (Glutose) 15 gm Q15M PRN BUCCAL DECREASED GLUCOSE; Start 04/21/16 at 17 :30 Insulin Aspart (Novolog Insulin Pen) (Adult SC Insulin - Mild Algorithm)... Q6 SC Last administered on 04/26/16 07:41; Admin Dose 5 UNIT; Start 04/22/16 at 00:00 Collagenase (Santyl) 1 applic DAILY TOP Last administered on 04/25/16 10:08; Admin Dose 1 APPLIC; Start 04/22/16 at 16:30 Nystatin (Nystatin Powder) 1 applic BID TOP Last administered on 04/26/16 08: 54; Admin Dose 1 APPLIC; Start 04/22/16 at 21:00 Insulin Glargine 10 unit 10 unit QHS SC Last administered on 04/25/16 23:03; Admin Dose 10 UNIT; Start 04/23/16 at 21:00 Cefepime HCl (Maxipime 1gm/50 ml (Pmx)) 50 ml @ 100 mls/hr Q12 IVPB Last administered on 04/26/16 08:54; Admin Dose 100 MLS/HR; Start 04/23/16 at 21:00 Insulin Aspart (Novolog Insulin Pen) 7 unit Q8 SC Last administered on 06:53; Admin Dose 7 UNIT; Start 04/24/16 at 14:00 Lansoprazole 30 mg 30 mg DAILY@06 GTB Last administered on 04/26/16 06:44; Admin Dose 30 MG; Start 04/25/16 at 06:00 Norepinephrine 250 ml @ 1.875 mls/ hr TITRATE IV Last administered on 00:26; Admin Dose 28.12 MLS/HR; Start 04/25/16 at 23:30 Norepinephrine/ Dextrose (Levophed/D5W) 500 ml @ 1.87 mls/hr TITRATE IV ; Start 04/26/16 at 00:30 Procedures Procedures PROCEDURE: XR Chest. CLINICAL INDICATION: Shortness of breath. TECHNIQUE: Single frontal view. COMPARISON: 04/24/2016. FINDINGS: The tracheostomy tube is in satisfactory position. There is mild left basilar atelectasis, unchanged. The heart is enlarged. There is calcification in the aorta consistent with atherosclerosis. There is no pleural effusion. There is no pneumothorax. IMPRESSION: 1. Tracheostomy tube. 2. Cardiomegaly and atherosclerosis. 3. Mild left basilar atelectasis. 4. No change from 04/24/2016. RPTAT: QQ .Pete Cruz MD, MD Date Time Electronically viewed and signed by .Pete Cruz MD, MD on 04/25/2016 17:47 MUSHTAQ OLIVIA MD Apr 26, 2016 11:37
--- NOTE | 2016-04-26 11:40 | PN ---
DATE: 04/26/2016 SUBJECTIVE: No acute events overnight. No fevers. The patient is lying comfortably in bed, nonver bal, noncommunicative. Temperature 98.2, pulse 113, respirations 20, blood pressure 102/65, saturation 100% on vent. WBC 15.1, H and H 9.9 and 29.4, platelets 238, neutrophils 24. Creatinine 0.68. MICROBIOLOGY: Endotracheal aspirate growing Proteus mirabilis. Nares swab was negative for MRSA. INDWELLINGS: Trach, PEG, Rivera, peripheral IV. DIAGNOSTICS: Chest x-ray revealed left basilar atelectasis. ANTIMICROBIALS: Cefepime day #4. PHYSICAL EXAMINATION: GENERAL: This is an obese, chronically ill-appearing, elderly woman who is in no distress. HEENT: Head atraumatic, normocephalic. Sclerae anicteric. Buccal mucosa dry. NECK: Supple. Tracheostomy present. CHEST: Rise symmetrical. Breath sounds diminished to bases. HEART: S1, S2. ABDOMEN: Obese, soft, bowel sounds present. EXTREMITIES: Without cyanosis. ASSESSMENT: 1. Acute tracheobronchitis. 2. Respiratory failure, acute on chronic. 3. Anemia. 4. Obesity. 5. Chronic encephalopathy, history of craniotomy. PLAN: The patient remains hemodynamically stable, covered with appropriate antimicrobials. Pending transfer to telemetry. Continue present care. Vent per pulmonary. Dictated By: JEFF SERNA CERTIFIED BENCH JEWELER TECHNICIAN for [facility] [employer]/NTS Conf#: [id number] DID#: [id number]
[2016-04-26] MEDS: COLLAGENASE 30 GM TUBE TOP SCH (11:45)
[2016-04-26] MEDS: ENOXAPARIN 30 MG/0.3 ML SYG SC SCH (12:02)
[2016-04-26] MEDS ORDERED: INSULIN GLARGINE [LANtus] 3 ML PEN SC ONE (15:30)
--- NOTE | 2016-04-26 19:55 | CONS ---
Date/Time of Note Date/Time of Note DATE: 04/26/16 TIME: 19:50 Assessment/Plan Assessment/Plan Additional Assessment/Plan Assessment/Plan Additional Assessment/Plan ASSESSMENT AND PLAN: 1. Anemia, rule out gastrointestinal bleeding, anemia of chronic disease, .Retic count high 2. Diabetes mellitus. 3. Cerebrovascular accident. 4. Vent dependent respiratory failure.transferred to ICU for worsening of her condition. 5. Paroxysmal atrial fibrillation. 6. Dysphagia status post G-tube. 7. Hypertension. 8. Renal insufficiency. 9. Multiple wounds. 10. Cardiomyopathy. 11.intermittent vomiting for months as per daughter Plan awaiting for occult blood.negative two samples continue PPI transfusion LDH,haptoglobin,pending pt. will need egd and colonoscopy.discussed with daughter and agreed Consultation Date/Type/Reason Admit Date/Time Apr 21, 2016 at 10:39 Type of Consultation: pulmonary 24 HR Interval Summary Subjective hx not possible: pt critical Exam/Review of Systems Vital Signs Vitals Vital Signs Date Time Temp Pulse Resp B/P Pulse Ox O2 Delivery O2 Flow Rate FiO2 04/26/16 18:00 110 20 137/73 98 Mechanical Ventilator 04/26/16 17:10 40 04/26/16 17:00 98.9 04/25/16 15:39 8.0 Intake and Output 04/25/16 04/25/16 04/26/16 15:00 23:00 07:00 Intake Total 140 ml 0 ml 1822 ml Output Total 200 ml 340 ml Balance 140 ml -200 ml 1482 ml Exam Constitutional: alert, oriented, well developed Psych: nl mood/affect, no complaints Head: atraumatic, normocephalic Eyes: EOMI, PERRL, nl conjunctiva, nl lids, nl sclera ENMT: nl external ears & nose, nl lips & teeth, nl nasal mucosa & septum Neck: non-tender, supple Respiratory: clear to auscultation, normal air movement Cardiovascular: nl pulses, regular rate and rhythm Gastrointestinal: nl liver, spleen, non-tender, soft Musculoskeletal: nl extremities to inspection, nl gait and stance Extremities: normal pulses Neurological: [employer] II-XII intact, nl mental status, nl speech, nl strength Skin: nl turgor, No rash or lesions Lymph: nl lymph nodes Results Result Diagram: 04/26/16 0537 04/26/16 0538 Results 24 hrs Laboratory Tests Test 04/25/16 22:02 04/26/16 05:37 04/26/16 05:38 04/26/16 06:49 Bedside Glucose 244 H 344 H Band Neutrophils % 6.0 H Basophils # 0.2 H Basophils % 1.0 Blood Morphology Comment Differential Comment MANUAL DIFF Eosinophils # 0.9 H Eosinophils % 6.0 Hematocrit 29.4 L Hemoglobin 9.9 L Lymphocytes # 3.5 H Lymphocytes % 23.0 Mean Corpuscular Hemoglobin 32.3 Mean Corpuscular Hemoglobin Concent 33.7 Mean Corpuscular Volume 95.8 Mean Platelet Volume 8.2 Metamyelocytes # 0.2 Metamyelocytes % 1.0 H Monocytes # 2.0 H Monocytes % 13.0 H Myelocytes # 0.2 Myelocytes % 1.0 H Neutrophils # 7.4 Neutrophils % 49.0 Nucleated Red Blood Cells # Nucleated Red Blood Cells % 2.0 H Platelet Count 238 # Red Blood Count 3.07 L Red Cell Distribution Width 19.9 H White Blood Count 15.1 #H Anion Gap 16 Blood Urea Nitrogen 24 H Calcium Level 8.7 Carbon Dioxide Level 27 Chloride Level 102 Creatinine 0.68 Glucose Level 278 H Potassium Level 5.0 Sodium Level 140 Test 04/26/16 11:52 04/26/16 14:44 04/26/16 17:46 Bedside Glucose 279 H 296 H 247 H Medications Medications Current Medications Chlorhexidine Gluconate (Peridex) 15 ml Q12 MM Last administered on 04/26/16 08:54; Admin Dose 15 ML; Start 04/21/16 at 21:00 Ferrous Sulfate (Feosol Liquid Cup) 330 mg BID GTB Last administered on 08:53; Admin Dose 330 MG; Start 04/21/16 at 21:00 Lactobacillus Acidophilus/ Rhamnosus (Culturelle) 1 cap BID GTB Last administered on 04/26/16 10:13; Admin Dose 1 CAP; Start 04/21/16 at 21:00 Metoclopramide HCl (Reglan) 10 mg Q6 PRN GTB NAUSEA AND/OR VOMITING; Start 03/26 at 17:00 Multivitamins 5 ml 5 ml DAILY GTB Last administered on 04/26/16 08:54; Admin Dose 5 ML; Start 04/22/16 at 09:00 Sodium Chloride (1/2 NS) 1,000 ml @ 30 mls/hr Q24H IV Last administered on 07:50; Admin Dose 30 MLS/HR; Start 04/21/16 at 17:30 Miscellaneous Information 1 ea NOTE XX ; Start 04/21/16 at 17:30 Glucose (Glutose) 15 gm Q15M PRN PO DECREASED GLUCOSE; Start 04/21/16 at 17:30 Glucose (Glutose) 22.5 gm Q15M PRN PO DECREASED GLUCOSE; Start 04/21/16 at 17: 30 Dextrose (D50w Syringe) 25 ml Q15M PRN IV DECREASED GLUCOSE; Start 04/21/16 at 17:30 Dextrose (D50w Syringe) 50 ml Q15M PRN IV DECREASED GLUCOSE; Start 04/21/16 at 17:30 Glucagon (Glucagen) 1 mg Q15M PRN IM DECREASED GLUCOSE; Start 04/21/16 at 17:30 Glucose (Glutose) 15 gm Q15M PRN BUCCAL DECREASED GLUCOSE; Start 04/21/16 at 17 :30 Insulin Aspart (Novolog Insulin Pen) (Adult SC Insulin - Mild Algorithm)... Q6 SC Last administered on 04/26/16 17:48; Admin Dose 3 UNIT; Start 04/22/16 at 00:00 Collagenase (Santyl) 1 applic DAILY TOP Last administered on 04/26/16 11:45; Admin Dose 1 APPLIC; Start 04/22/16 at 16:30 Nystatin 1 applic 1 applic BID TOP Last administered on 04/26/16 08:54; Admin Dose 1 APPLIC; Start 04/22/16 at 21:00 Cefepime HCl (Maxipime 1gm/50 ml (Pmx)) 50 ml @ 100 mls/hr Q12 IVPB Last administered on 04/26/16 08:54; Admin Dose 100 MLS/HR; Start 04/23/16 at 21:00 Insulin Aspart (Novolog Insulin Pen) 7 unit Q8 SC Last administered on 14:46; Admin Dose 7 UNIT; Start 04/24/16 at 14:00 Lansoprazole (Prevacid) 30 mg DAILY@06 GTB Last administered on 04/26/16 06:44 ; Admin Dose 30 MG; Start 04/25/16 at 06:00 Enoxaparin Sodium (Lovenox) 30 mg DAILY SC Last administered on 04/26/16t 12:02 ; Admin Dose 30 MG; Start 04/26/16 at 12:00 Insulin Glargine (Lantus) 15 unit QHS SC ; Start 04/26/16 at 21:00 INES TORRE MD Apr 26, 2016 19:55
[2016-04-26] MEDS ORDERED: INSULIN GLARGINE [LANtus] 3 ML PEN SC SCH (21:00)
[2016-04-26] MEDS: LORAZEPAM 1 MG TAB PEG PRN (23:24)
[2016-04-26] MEDS: FENTAnyl PATCH 50 MCG/HR TRANSDERM SCH (23:25)
[2016-04-27] VITALS (54 sets, daily range): BP systolic 99–162; BP diastolic 60–130; PULSE 100–121; RESP 18–37
[2016-04-27] MEDS: Insulin NOVOLOG SS MILD Algorithm (NPO/TPN/ENTERAL FEEDS) SC SCH ×2 (00:39→06:13)
[2016-04-27] MEDS: ACETYLCYSTEINE 20% 4 ML VIAL NEB SCH ×4 (01:16→22:23)
[2016-04-27] MEDS: ALBUTEROL/IPRATROPIUM (NEB) 3 ML AMP NEB PRN ×4 (01:16→22:24)
[2016-04-27] MEDS: ACETAMINOPHEN 650MG/20.3ML CUP NGT PRN ×2 (04:33→14:42)
[2016-04-27 05:43] LABS: POTASSIUM 4.3 mmol/L (3.5-5.1)
[2016-04-27 05:45] LABS: CREATININE 0.56 mg/dl (0.44-1.00)
[2016-04-27 05:46] LABS: CALCIUM 8.9 mg/dl (8.4-10.2)
[2016-04-27] MEDS: LANSOPRAZOLE 30 MG CAP GTB SCH (06:06)
[2016-04-27] MEDS: clonAZEPAM 0.5 MG TAB GTB SCH ×3 (06:06→21:13)
[2016-04-27] MEDS: INSULIN ASPART [NOVOLOG] 3 ML PEN SC SCH (06:12)
[2016-04-27] MEDS: SOD CHLORIDE 0.45% 1,000 ML IV SCH ×2 (08:00→17:46)
--- NOTE | 2016-04-27 09:37 | RADRPT ---
PROCEDURE: XR Chest. CLINICAL INDICATION: Shortness of breath TECHNIQUE: An AP view of the chest was obtained. COMPARISON: Chest x-ray dated 04/25/2016 FINDINGS: A tracheostomy tube is in place. There is prominence of the interstitial markings. No pleural effusion or pneumothorax is seen. Th e cardiomediastinal silhouette is mildly enlarged . Calcifications are seen within the aortic arch. The osseous structures demonstrate senescent changes. IMPRESSION: 1. Mild prominence of the interstitial markings, may reflect mild underlying interstitial edema or chronic lung changes. Findings are mildly increased when compared to the prior examination. 2. Mild cardiomegaly and aortic atherosclerosis. 3. Tracheostomy tube in place. RPTAT: HH .Lyric Mayer MD, Date Time Electronically viewed and signed by .Lyric Mayer MD, on 04/27/2016 09:36 .G/
[2016-04-27 09:39] LABS: HEMATOCRIT 26.6 % (37.0-47.0); HEMOGLOBIN 8.6 g/dl (12.0-16.0); MEAN CORPUSCULAR HEMOGLOBIN 31.4 pg (29.0-33.0); MEAN CORPUSCULAR HGB CONC 32.5 g/dl (32.0-37.0); MEAN CORPUSCULAR VOLUME 96.7 fl (82.0-101.0); MEAN PLATELET VOLUME 8.8 fl (7.4-10.4); PLATELET COUNT 193 10^3/UL (140-440); RED BLOOD COUNT 2.75 10^6/ul (4.20-5.40); RED CELL DISTRIBUTION WIDTH 20.8 % (11.5-14.5); UNCORRECTED WBC 21.7 10^3/ul (4.8-10.8); WHITE BLOOD COUNT 21.7 10^3/ul (4.8-10.8)
[2016-04-27] MEDS: FERROUS SULFATE 60 MG/ML 5ML CUP GTB SCH ×2 (09:42→20:20)
[2016-04-27] MEDS: MULTIVITAMINS 5 ML CUP GTB SCH (09:42)
[2016-04-27] MEDS: LACTOBACILLUS RHAMNOSUS CAP GTB SCH ×2 (09:42→20:20)
[2016-04-27] MEDS: CHLORHEXIDINE GLUCONATE 15 ML UD CUP MM SCH ×2 (09:42→20:20)
[2016-04-27] MEDS: ENOXAPARIN 30 MG/0.3 ML SYG SC SCH (09:43)
[2016-04-27] MEDS: NYSTATIN 30 GM POWDER BTL TOP SCH ×2 (09:45→20:20)
[2016-04-27] MEDS: COLLAGENASE 30 GM TUBE TOP SCH (09:45)
[2016-04-27] MEDS: CEFEPIME 1GM/50 ML (PMX) 50 ML IVPB SCH ×2 (09:49→21:13)
[2016-04-27 09:50] LABS: CONDITION 1; LH ANALYZER COMMENTS 1; SUSPECT 1
--- NOTE | 2016-04-27 10:29 | CONS ---
Date/Time of Note Date/Time of Note DATE: 04/27/16 TIME: 10:26 Consult Date/Type/Reason Admit Date/Time Apr 21, 2016 at 10:39 Type of Consultation: pulmonary Subjective Remains comfortable on mechanical ventilation Agitation without following commands Objective Vital Signs Date Time Temp Pulse Resp B/P Pulse Ox O2 Delivery O2 Flow Rate FiO2 04/27/16 09:00 113 26 106/67 94 Mechanical Ventilator 04/27/16 08:11 40 04/27/16 08:00 99.9 04/25/16 15:39 8.0 Intake and Output 04/26/16 04/26/16 04/27/16 15:00 23:00 07:00 Intake Total 680 ml 1095 ml 730 ml Output Total 300 ml 480 ml 380 ml Balance 380 ml 615 ml 350 ml PHYSICAL EXAMINATION: VITAL SIGNS: As above Respiratory Diminished air entry bilaterally with rhonchi. ABDOMEN: Soft, nontender. No guarding or rebound. EXTREMITIES: No cyanosis, clubbing, edema. NEUROLOGICAL: Generalized weakness. Results/Medications Result Diagram: 04/27/16 0400 04/27/16 0400 Results 24 hrs Laboratory Tests Test 04/26/16 11:52 04/26/16 14:44 04/26/16 17:46 04/26/16 21:38 Bedside Glucose 279 H 296 H 247 H 217 Test 04/27/16 00:35 04/27/16 04:00 04/27/16 06:10 Bedside Glucose 242 H 292 H Anion Gap 15 Basophils # Pending Basophils % Pending Blood Morphology Comment Blood Urea Nitrogen 20 Calcium Level 8.9 Carbon Dioxide Level 27 Chloride Level 99 Creatinine 0.56 Eosinophils # Pending Eosinophils % Pending Glucose Level 232 H Hematocrit 26.6 L Hemoglobin 8.6 L Lymphocytes # Pending Lymphocytes % Pending Mean Corpuscular Hemoglobin 31.4 Mean Corpuscular Hemoglobin Concent 32.5 Mean Corpuscular Volume 96.7 Mean Platelet Volume 8.8 Monocytes # Pending Monocytes % Pending Neutrophils # Pending Neutrophils % Pending Nucleated Red Blood Cells # Pending Nucleated Red Blood Cells % Pending Platelet Count 193 Potassium Level 4.3 Red Blood Count 2.75 L Red Cell Distribution Width 20.8 H Sodium Level 137 White Blood Count 21.7 #H Medications Current Medications Chlorhexidine Gluconate (Peridex) 15 ml Q12 MM Last administered on 04/27/16 09:42; Admin Dose 15 ML; Start 04/21/16 at 21:00 Ferrous Sulfate (Feosol Liquid Cup) 330 mg BID GTB Last administered on 09:42; Admin Dose 330 MG; Start 04/21/16 at 21:00 Lactobacillus Acidophilus/ Rhamnosus (Culturelle) 1 cap BID GTB Last administered on 04/27/16 09:42; Admin Dose 1 CAP; Start 04/21/16 at 21:00 Metoclopramide HCl (Reglan) 10 mg Q6 PRN GTB NAUSEA AND/OR VOMITING; Start 03/26 at 17:00 Multivitamins 5 ml 5 ml DAILY GTB Last administered on 04/27/16 09:42; Admin Dose 5 ML; Start 04/22/16 at 09:00 Sodium Chloride (1/2 NS) 1,000 ml @ 30 mls/hr Q24H IV Last administered on 07:50; Admin Dose 30 MLS/HR; Start 04/21/16 at 17:30 Miscellaneous Information 1 ea NOTE XX ; Start 04/21/16 at 17:30 Glucose (Glutose) 15 gm Q15M PRN PO DECREASED GLUCOSE; Start 04/21/16 at 17:30 Glucose (Glutose) 22.5 gm Q15M PRN PO DECREASED GLUCOSE; Start 04/21/16 at 17: 30 Dextrose (D50w Syringe) 25 ml Q15M PRN IV DECREASED GLUCOSE; Start 04/21/16 at 17:30 Dextrose (D50w Syringe) 50 ml Q15M PRN IV DECREASED GLUCOSE; Start 04/21/16 at 17:30 Glucagon (Glucagen) 1 mg Q15M PRN IM DECREASED GLUCOSE; Start 04/21/16 at 17:30 Glucose (Glutose) 15 gm Q15M PRN BUCCAL DECREASED GLUCOSE; Start 04/21/16 at 17 :30 Insulin Aspart (Novolog Insulin Pen) (Adult SC Insulin - Mild Algorithm)... Q6 SC Last administered on 04/27/16 06:13; Admin Dose 4 UNIT; Start 04/22/16 at 00:00 Collagenase (Santyl) 1 applic DAILY TOP Last administered on 04/27/16 09:45; Admin Dose 1 APPLIC; Start 04/22/16 at 16:30 Nystatin 1 applic 1 applic BID TOP Last administered on 04/27/16 09:45; Admin Dose 1 APPLIC; Start 04/22/16 at 21:00 Cefepime HCl (Maxipime 1gm/50 ml (Pmx)) 50 ml @ 100 mls/hr Q12 IVPB Last administered on 04/27/16 09:49; Admin Dose 100 MLS/HR; Start 04/23/16 at 21:00 Insulin Aspart (Novolog Insulin Pen) 7 unit Q8 SC Last administered on 06:12; Admin Dose 7 UNIT; Start 04/24/16 at 14:00 Lansoprazole (Prevacid) 30 mg DAILY@06 GTB Last administered on 04/27/16 06:06 ; Admin Dose 30 MG; Start 04/25/16 at 06:00 Enoxaparin Sodium (Lovenox) 30 mg DAILY SC Last administered on 04/27/16 09:43 ; Admin Dose 30 MG; Start 04/26/16 at 12:00 Insulin Glargine (Lantus) 15 unit QHS SC Last administered on 04/26/16 21:42; Admin Dose 15 UNIT; Start 04/26/16 at 21:00 Fentanyl (Duragesic 50 Mcg/Hr Patch) 1 patch Q72H TRANSDERM Last administered on 04/26/16 23:25; Admin Dose 1 PATCH; Start 04/26/16 at 22:30 Lorazepam (Ativan) 1 mg Q2HWA PRN PEG Anxiety Last administered on 04/26/16 23 :24; Admin Dose 1 MG; Start 04/26/16 at 22:30 Clonazepam (Klonopin) 0.5 mg Q8 GTB Last administered on 04/27/16 06:06; Admin Dose 0.5 MG; Start 04/27/16 at 06:00 Acetaminophen (Tylenol Liquid) 650 mg Q6H PRN NGT PAIN AND OR ELEVATED TEMP Last administered on 04/27/16 04:33; Admin Dose 650 MG; Start 04/27/16 at 04:30 Assessment/Plan Chief Complaint/Hosp Course IMPRESSION: A 65-year-old female with: 1. Chronic respiratory failure, tracheostomy dependent. Probable tracheobronchitis/ pneumonia 2. Anemia. Rule out gastrointestinal bleed. 3. Encephalopathy. Chronic 4. Acute renal failure. Likely prerenal now improved with hydration 5. Dehydration. 6. Hyperkalemia. Now resolved. 7. History of diabetes mellitus. 8. History of hypertension. 9. Status post craniotomy. 10. History of congestive heart failure. 11. History of hypertension. RECOMMENDATIONS: 1. Check stool for occult blood. 2. Transfuse packed RBC p.r.n. GI recommendations. Would proceed with endoscopy if needed on mechanical ventilation. 3. Gastrointestinal evaluation noted. 4. Proton pump inhibitor. 5. Continue tracheostomy care. Add Mucomyst to medications 6. Oxygen. 7. Followup labs. 8. Continue antibiotics Consider Grant evaluation Transfer to telemetry Problems: JORDON MONSON MD, [facility] Apr 27, 2016 10:29
[2016-04-27] MEDS ORDERED: INSULIN ASPART [NOVOLOG] 3 ML PEN SC SCH ×3 (12:00→13:00)
[2016-04-27 12:53] LABS: ANISOCYTOSIS 2+; EOSINOPHILS # 1.7 10^3/ul (0.0-0.5); LYMPHOCYTES # 5.9 10^3/ul (0.8-2.9); MONOCYTE # 2.2 10^3/ul (0.3-0.9); NEUTROPHIL # 9.1 10^3/ul (1.6-7.5)
[2016-04-27] MEDS ORDERED: AMIKACIN IV PER PHARMACY XX SCH (13:00)
--- NOTE | 2016-04-27 13:40 | PN ---
Date/Time of Note Date/Time of Note DATE: 04/27/16 TIME: 13:36 Assessment/Plan VTE Prophylaxis VTE Prophylaxis Intervention: LMWH, SCD's Lines/Catheters IV Catheter Type (from Nrs): Peripheral IV Central line still needed: Yes (IV Abx, BLood draws) Urinary Cath still in place: Yes Reason Cath still needed: urinary retention (Critical care) Assessment/Plan Assessment/Plan 1. Acute on chronic respiratory failure, The patient is followed by Dr. Mcbride 's group in pulmonology consultation anemia. Continue bronchodilators pulmonary total toilet and ventilator support. 2. Anemia, the patient is followed by Dr. Dowd from gastroenterology consultation. Continue Protonix. Stool for OB is negative. The patient has most likely anemia of chronic disease. Continue to monitor hemoglobin and hematocrit. NO active blood loss. Pending Colonoscopy 3. Gram-negative rods tracheobronchitis. Patient is followed by Dr. Hernadez in infection disease consultation. Continue antibiotics per ID. 4. Acute kidney injury secondary to dehydration, resolved. Continue to monitor BUN and creatinine. 5. Diabetes mellitus by history. Persistent Hyperglycemia, Will start Insulin Dri. 6. Multiple wounds. Continue to follow up wound care recommendations. Continue air mattress and local wound care. 7. Congestive heart failure by history. Continue to monitor intake and output. 8. Chronic encephalopathy with history of craniotomy. Discussed with family, Daughter who is at bedside. patient's condition and plan of care, all questions answered. Cont ICU care. Hold transfer at this time. Continue to Protonix for peptic ulcer disease prophylaxis and sequential compression device, Hold lovenox for now, Pending Colonoscopy. . Subjective 24 Hr Interval Summary Free Text/Dictation Persistent hyperglycemia, Febrile this am. Only can get small peripheral IV Subjective hx not possible: pt critical status Exam/Review of Systems Vital Signs Vitals Vital Signs Date Time Temp Pulse Resp B/P Pulse Ox O2 Delivery O2 Flow Rate FiO2 04/27/16 12:40 118 29 96 30 04/27/16 12:30 133/62 Mechanical Ventilator 04/27/16 12:00 99.1 04/25/16 15:39 8.0 Intake and Output 04/26/16 04/26/16 04/27/16 15:00 23:00 07:00 Intake Total 680 ml 1095 ml 790 ml Output Total 300 ml 480 ml 440 ml Balance 380 ml 615 ml 350 ml Exam Constitutional: No distress ENMT: mucosa pink and moist, other (Trach) Respiratory: crackles/rales, other (Vent), No diminished breath sounds Cardiovascular: other (Tachycardia) Gastrointestinal: soft, No rebound or guarding Extremities: edema Neurological: lethargic Results Result Diagram: 04/27/16 0400 04/27/16 0400 Results 24 hrs Laboratory Tests Test 04/26/16 14:44 04/26/16 17:46 04/26/16 21:38 04/27/16 00:35 Bedside Glucose 296 H 247 H 217 242 H Test 04/27/16 04:00 04/27/16 06:10 04/27/16 12:55 Anion Gap 15 Anisocytosis 2+ Band Neutrophils % 13.0 H Basophils # Basophils % Blood Morphology Comment Blood Urea Nitrogen 20 Calcium Level 8.9 Carbon Dioxide Level 27 Chloride Level 99 Creatinine 0.56 Eosinophils # 1.7 H Eosinophils % 8.0 H Glucose Level 232 H Hematocrit 26.6 L Hemoglobin 8.6 L Lymphocytes # 5.9 H Lymphocytes % 27.0 Mean Corpuscular Hemoglobin 31.4 Mean Corpuscular Hemoglobin Concent 32.5 Mean Corpuscular Volume 96.7 Mean Platelet Volume 8.8 Monocytes # 2.2 H Monocytes % 10.0 Neutrophils # 9.1 H Neutrophils % 42.0 Nucleated Red Blood Cells # Nucleated Red Blood Cells % Platelet Count 193 Potassium Level 4.3 Red Blood Count 2.75 L Red Cell Distribution Width 20.8 H Sodium Level 137 White Blood Count 21.7 #H Bedside Glucose 292 H 337 H Medications Medications Current Medications Chlorhexidine Gluconate (Peridex) 15 ml Q12 MM Last administered on 04/27/16 09:42; Admin Dose 15 ML; Start 04/21/16 at 21:00 Ferrous Sulfate (Feosol Liquid Cup) 330 mg BID GTB Last administered on 09:42; Admin Dose 330 MG; Start 04/21/16 at 21:00 Lactobacillus Acidophilus/ Rhamnosus (Culturelle) 1 cap BID GTB Last administered on 04/27/16 09:42; Admin Dose 1 CAP; Start 04/21/16 at 21:00 Metoclopramide HCl (Reglan) 10 mg Q6 PRN GTB NAUSEA AND/OR VOMITING; Start 03/26 at 17:00 Multivitamins 5 ml 5 ml DAILY GTB Last administered on 04/27/16 09:42; Admin Dose 5 ML; Start 04/22/16 at 09:00 Sodium Chloride (1/2 NS) 1,000 ml @ 30 mls/hr Q24H IV Last administered on 07:50; Admin Dose 30 MLS/HR; Start 04/21/16 at 17:30 Miscellaneous Information 1 ea NOTE XX ; Start 04/21/16 at 17:30 Glucose (Glutose) 15 gm Q15M PRN PO DECREASED GLUCOSE; Start 04/21/16 at 17:30 Glucose (Glutose) 22.5 gm Q15M PRN PO DECREASED GLUCOSE; Start 04/21/16 at 17: 30 Dextrose (D50w Syringe) 25 ml Q15M PRN IV DECREASED GLUCOSE; Start 04/21/16 at 17:30 Dextrose (D50w Syringe) 50 ml Q15M PRN IV DECREASED GLUCOSE; Start 04/21/16 at 17:30 Glucagon (Glucagen) 1 mg Q15M PRN IM DECREASED GLUCOSE; Start 04/21/16 at 17:30 Glucose (Glutose) 15 gm Q15M PRN BUCCAL DECREASED GLUCOSE; Start 04/21/16 at 17 :30 Collagenase (Santyl) 1 applic DAILY TOP Last administered on 04/27/16 09:45; Admin Dose 1 APPLIC; Start 04/22/16 at 16:30 Nystatin 1 applic 1 applic BID TOP Last administered on 04/27/16 09:45; Admin Dose 1 APPLIC; Start 04/22/16 at 21:00 Cefepime HCl (Maxipime 1gm/50 ml (Pmx)) 50 ml @ 100 mls/hr Q12 IVPB Last administered on 04/27/16 09:49; Admin Dose 100 MLS/HR; Start 04/23/16 at 21:00 Lansoprazole (Prevacid) 30 mg DAILY@06 GTB Last administered on 04/27/16 06:06 ; Admin Dose 30 MG; Start 04/25/16 at 06:00 Enoxaparin Sodium (Lovenox) 30 mg DAILY SC Last administered on 04/27/16 09:43 ; Admin Dose 30 MG; Start 04/26/16 at 12:00 Fentanyl (Duragesic 50 Mcg/Hr Patch) 1 patch Q72H TRANSDERM Last administered on 04/26/16 23:25; Admin Dose 1 PATCH; Start 04/26/16 at 22:30 Lorazepam (Ativan) 1 mg Q2HWA PRN PEG Anxiety Last administered on 04/26/16 23 :24; Admin Dose 1 MG; Start 04/26/16 at 22:30 Clonazepam (Klonopin) 0.5 mg Q8 GTB Last administered on 04/27/16 06:06; Admin Dose 0.5 MG; Start 04/27/16 at 06:00 Acetaminophen (Tylenol Liquid) 650 mg Q6H PRN NGT PAIN AND OR ELEVATED TEMP Last administered on 04/27/16 04:33; Admin Dose 650 MG; Start 04/27/16 at 04:30 Insulin Aspart (Novolog Insulin Pen) NOVOLOG *MODERATE* ALGORI... Q4 SC Last administered on 04/27/16 12:58; Admin Dose 10 UNIT; Start 04/27/16 at 13:00 Insulin Glargine (Lantus) 15 unit HS SC ; Start 04/27/16 at 21:00 Insulin Aspart (Novolog Insulin Pen) 7 unit Q4 SC ; Start 04/27/16 at 13:00 Amikacin Sulfate AMIKACIN PER PHARMACY NOTE XX ; Start 04/27/16 at 13:00 Amikacin Sulfate/ Sodium Chloride (Amikacin/NS) 104 ml @ 102 mls/hr Q24H IVPB ; Start 04/27/16 at 14:00 Procedures Procedures PROCEDURE: XR Chest. CLINICAL INDICATION: Shortness of breath TECHNIQUE: An AP view of the chest was obtained. COMPARISON: Chest x-ray dated 04/25/2016 FINDINGS: A tracheostomy tube is in place. There is prominence of the interstitial markings. No pleural effusion or pneumothorax is seen. The cardiomediastinal silhouette is mildly enlarged . Calcifications are seen within the aortic arch. The osseous structures demonstrate senescent changes. IMPRESSION: 1. Mild prominence of the interstitial markings, may reflect mild underlying interstitial edema or chronic lung changes. Findings are mildly increased when compared to the prior examination. 2. Mild cardiomegaly and aortic atherosclerosis. 3. Tracheostomy tube in place. RPTAT: HH .Lyric Mayer MD, Date Time Electronically viewed and signed by .Lyric Mayer MD, on 04/27/2016 09 :36 MUSHTAQ OLIVIA MD Apr 27, 2016 13:40
[2016-04-27] MEDS ORDERED: DEXTROSE 50% 50 ML SYRINGE IV PRN ×2 (14:00)
[2016-04-27] MEDS ORDERED: LIDOCAINE 1% (MDV) 20 ML INJ SC ONE (14:00)
[2016-04-27] MEDS ORDERED: AMIKACIN 1,000 MG in SOD CHLORIDE 0.9% 100 ML IVPB SCH (14:00)
--- NOTE | 2016-04-27 14:20 | PN ---
DATE: 04/27/2016 SUBJECTIVE: No acute changes. The patient is lying comfortably in bed. She spiked fever of 102.5 this morning. Currently afebrile. WBC 21.7, H and H 8.6 and 26.6, platelets 193. BUN 20, creatini ne 0.56. MICROBIOLOGY: Stool for C. diff came back negative. Endotracheal aspirate grew pseudomonas and Pro teus mirabilis. The Proteus mirabilis susceptible to majority of the antibiotics, pseudomonas susce ptible only to amikacin. DIAGNOSTICS: Chest x-ray revealed mild prominence of the interstitial markings. INDWELLINGS: Trach, PEG, Rivera. ANTIMICROBIALS: Cefepime. PHYSICAL EXAMINATION: GENERAL: This is an obese, chronically ill-appearing, elderly woman who is nonverbal but awake and in no distress. HEENT: Head atraumatic, normocephalic. Sclerae anicteric. Buccal mucosa dry. NECK: Supple. Tracheostomy present. CHEST: Rise symmetrical. Breath sounds diminished to bases. HEART: S1, S2. ABDOMEN: Soft. Bowel tones present. EXTREMITIES: Without cyanosis. ASSESSMENT: 1. Sepsis with fevers and leukocytosis. 2. Healthcare-associated pneumonia with sputum cultures growing multi-drug resistant organisms. 3. Chronic respiratory failure. 4. Dysphagia. 5. Anemia. 6. Encephalopathy with a history of craniotomy. PLAN: 1. We are going to make sure cultures were sent and if not we will do blood cultures, start her on amikacin. Continue cefepime. 2. Continue vent management as per pulmonary. 3. Await final cultures. Dictated By: JEFF SERNA [employer] for [employer] Conf#: [id number] DID#: [id number]
[2016-04-27] MEDS: ACCUCHECK XX SCH ×10 (14:23→23:08)
[2016-04-27] MEDS: INSULIN REGULAR, HUMAN 100 UNIT in SOD CHLORIDE 0.9% 99 ML IV SCH ×2 (14:41)
--- NOTE | 2016-04-27 17:17 | RADRPT ---
PROCEDURE: US guidance for PICC line CLINICAL INDICATION: PICC line placement TECHNIQUE: Multiple real-time images were acquired of the patient's arm utilizing a high resolutio n transducer. This was performed by the PICC line nurse for venous access. COMPARISON: None FINDINGS: Ultrasound guidance for PICC line placement. IMPRESSION: Ultrasound guidance for PICC line placement. RPTAT: AA .Josh Beckford MD, MD Date Time Electronically viewed and signed by .Josh Beckford MD, on 04/27/2016 17:17 .S/
--- NOTE | 2016-04-27 17:25 | RADRPT ---
PROCEDURE: XR Chest. CLINICAL INDICATION: Check PICC line position. TECHNIQUE: Single frontal view. COMPARISON: Prior study done earlier the same day. FINDINGS: There is a left arm PICC line with the tip in the lower right atrium. Mild interstitial disease jorge a aterally is unchanged. The lungs are otherwise clear. The heart is mildly enlarged. There is calcification in the aorta consistent with atherosclerosis. There is no pleural effusion. There is no pneumothorax. IMPRESSION: 1. Left arm PICC line tip in the lower right atrium. PICC line nurse was informed. 2. No other change from the prior study done earlier the same day. RPTAT: QQ .Pete Cruz MD, MD Date Time Electronically viewed and signed by .Pete Cruz MD, MD on 04/27/2016 17:25 .R/
--- NOTE | 2016-04-27 17:27 | RADRPT ---
PROCEDURE: XR Chest. CLINICAL INDICATION: Check PICC line position. TECHNIQUE: Single frontal view. COMPARISON: Prior study done earlier the same day. FINDINGS: There is a left arm PICC line with the tip in the lower superior vena cava. There is mild interstit ial disease bilaterally, unchanged. The tracheostomy tube is noted. The heart is mildly enlarged. There is calcification in the aorta consistent with atherosclerosis. There is no pleural effusion. There is no pneumothorax. IMPRESSION: 1. Satisfactory position of left arm PICC line. 2. No other change from the prior study done earlier the same day. RPTAT: QQ .Pete Cruz MD, MD Date Time Electronically viewed and signed by .Pete Cruz MD, MD on 04/27/2016 17:27 .R/
[2016-04-27] MEDS ORDERED: SOD CHLORIDE 0.9% 100 ML ONE (17:48)
[2016-04-27] MEDS ORDERED: INSULIN GLARGINE [LANtus] 3 ML PEN SC SCH (21:00)
[2016-04-27] MEDS ORDERED: PEG/ELECTROLYTES 4L BTL PO ONE (22:00)
[2016-04-27] MEDS: LORAZEPAM 1 MG TAB PEG PRN (23:40)
[2016-04-28] VITALS (50 sets, daily range): BP systolic 100–162; BP diastolic 37–139; PULSE 97–129; RESP 17–32
[2016-04-28] MEDS: INSULIN REGULAR, HUMAN 100 UNIT in SOD CHLORIDE 0.9% 99 ML IV SCH ×4 (00:29→19:06)
[2016-04-28] MEDS: ACCUCHECK XX SCH ×24 (00:30→23:00)
[2016-04-28] MEDS ORDERED: PEG/ELECTROLYTES 4L BTL PO ONE (02:00)
[2016-04-28] MEDS: ACETYLCYSTEINE 20% 4 ML VIAL NEB SCH ×4 (03:06→20:37)
[2016-04-28] MEDS: ALBUTEROL/IPRATROPIUM (NEB) 3 ML AMP NEB PRN ×4 (03:07→20:38)
[2016-04-28 05:01] LABS: BASOPHILS % 0.2 % (0.0-2.0); EOSINOPHILS # 0.8 10^3/ul (0.0-0.5); EOSINOPHILS % 3.9 % (0.0-7.0); HEMATOCRIT 25.8 % (37.0-47.0); HEMOGLOBIN 8.5 g/dl (12.0-16.0); LYMPHOCYTES # 3.1 10^3/ul (0.8-2.9); LYMPHOCYTES % 15.2 % (15.0-51.0); MEAN CORPUSCULAR HEMOGLOBIN 31.3 pg (29.0-33.0); MEAN CORPUSCULAR HGB CONC 32.8 g/dl (32.0-37.0); MEAN CORPUSCULAR VOLUME 95.3 fl (82.0-101.0); MEAN PLATELET VOLUME 8.9 fl (7.4-10.4); MONOCYTE # 3.1 10^3/ul (0.3-0.9); MONOCYTES % 15.3 % (0.0-11.0); NEUTROPHIL # 13.3 10^3/ul (1.6-7.5); NEUTROPHILS % 65.4 % (39.0-77.0); NUCLEATED RED BLOOD CELLS% 2.9 /100WBC (0.0-0.0); PLATELET COUNT 200 10^3/UL (140-440); RED BLOOD COUNT 2.71 10^6/ul (4.20-5.40); RED CELL DISTRIBUTION WIDTH 19.7 % (11.5-14.5); UNCORRECTED WBC 20.3 10^3/ul (4.8-10.8); WHITE BLOOD COUNT 20.3 10^3/ul (4.8-10.8)
[2016-04-28 05:09] LABS: CONDITION 1; LH ANALYZER COMMENTS 1; NUCLEATED RED BLOOD CELLS # 0.6 10^3/ul (0.0-0.0)
[2016-04-28 05:39] LABS: POTASSIUM 3.9 mmol/L (3.5-5.1)
[2016-04-28 05:42] LABS: CREATININE 0.52 mg/dl (0.44-1.00)
[2016-04-28 05:43] LABS: CALCIUM 8.6 mg/dl (8.4-10.2)
[2016-04-28] MEDS: LANSOPRAZOLE 30 MG CAP GTB SCH (05:57)
[2016-04-28] MEDS: clonAZEPAM 0.5 MG TAB GTB SCH ×3 (05:57→21:23)
[2016-04-28 08:13] LABS: AADO2 Arterial 95.3 mmHg (7.0-24.0); Allen Test ACCEPTAB; Arterial Base Excess 6.7 mmol/L (-3.0-3); Arterial COHb 0.1 % (0.0-3.0); Arterial Fraction of Oxyhgb 92.9 % (93.0-99.0); Arterial HCO3 31.1 mmol/L (22.0-26.0); Arterial MetHb 0.2 % (0.0-1.5); Arterial Total Hemglobin 7.8 g/dl (12.0-18.0); Blood Gas Low PEEP Setting 0 cmH2O; MODE VENT - AC
[2016-04-28] MEDS: FERROUS SULFATE 60 MG/ML 5ML CUP GTB SCH ×2 (09:24→20:30)
[2016-04-28] MEDS: MULTIVITAMINS 5 ML CUP GTB SCH (09:24)
[2016-04-28] MEDS: LACTOBACILLUS RHAMNOSUS CAP GTB SCH ×2 (09:24→20:34)
[2016-04-28] MEDS: CHLORHEXIDINE GLUCONATE 15 ML UD CUP MM SCH ×2 (09:24→20:32)
[2016-04-28] MEDS: COLLAGENASE 30 GM TUBE TOP SCH (09:24)
[2016-04-28] MEDS: CEFEPIME 1GM/50 ML (PMX) 50 ML IVPB SCH ×2 (09:29→21:23)
[2016-04-28] MEDS: NYSTATIN 30 GM POWDER BTL TOP SCH ×2 (09:56→20:33)
--- NOTE | 2016-04-28 10:09 | CONS ---
Date/Time of Note Date/Time of Note DATE: 04/28/16 TIME: 10:08 Consult Date/Type/Reason Admit Date/Time Apr 21, 2016 at 10:39 Type of Consultation: pulmonary Subjective Patient comfortable this morning noting new events remains hemodynamic stable Continues insulin drip Objective Vital Signs Date Time Temp Pulse Resp B/P Pulse Ox O2 Delivery O2 Flow Rate FiO2 04/28/16 08:00 30 04/28/16 08:00 109 04/28/16 07:30 21 132/55 100 Mechanical Ventilator 04/28/16 04:00 100.1 04/25/16 15:39 8.0 Intake and Output 04/27/16 04/27/16 04/28/16 15:00 23:00 07:00 Intake Total 950 ml 1842 ml 3290.5 ml Output Total 490 ml 370 ml 325 ml Balance 460 ml 1472 ml 2965.5 ml PHYSICAL EXAMINATION: VITAL SIGNS: As above Respiratory Diminished air entry bilaterally with rhonchi. ABDOMEN: Soft, nontender. No guarding or rebound. EXTREMITIES: No cyanosis, clubbing, edema. NEUROLOGICAL: Generalized weakness. Results/Medications Result Diagram: 04/28/16 0345 04/28/16 0345 Results 24 hrs Laboratory Tests Test 04/27/16 12:55 04/27/16 14:30 04/27/16 16:00 04/27/16 17:30 Bedside Glucose 337 H 295 H 288 H 277 H Test 04/27/16 18:16 04/27/16 19:29 04/27/16 20:22 04/27/16 21:17 Bedside Glucose 262 H 228 H 218 201 Test 04/27/16 22:20 04/27/16 23:07 04/28/16 00:27 04/28/16 01:04 Bedside Glucose 196 187 155 122 Test 04/28/16 01:05 04/28/16 02:54 04/28/16 03:45 04/28/16 04:51 Random Amikacin Level Bedside Glucose 131 121 Anion Gap 15 Basophils # 0.0 Basophils % 0.2 Blood Morphology Comment Blood Urea Nitrogen 14 Calcium Level 8.6 Carbon Dioxide Level 28 Chloride Level 99 Creatinine 0.52 Eosinophils # 0.8 H Eosinophils % 3.9 Glucose Level 108 # Hematocrit 25.8 L Hemoglobin 8.5 L Lymphocytes # 3.1 H Lymphocytes % 15.2 Mean Corpuscular Hemoglobin 31.3 Mean Corpuscular Hemoglobin Concent 32.8 Mean Corpuscular Volume 95.3 Mean Platelet Volume 8.9 Monocytes # 3.1 H Monocytes % 15.3 H Neutrophils # 13.3 H Neutrophils % 65.4 Nucleated Red Blood Cells # 0.6 H Nucleated Red Blood Cells % 2.9 H Platelet Count 200 Potassium Level 3.9 Red Blood Count 2.71 L Red Cell Distribution Width 19.7 H Sodium Level 138 White Blood Count 20.3 H Test 04/28/16 06:42 04/28/16 06:52 04/28/16 07:00 04/28/16 09:32 Lab Scanned Report REFERENCE LAB Bedside Glucose 113 132 Arterial Blood HCO3 31.1 H Arterial Blood Base Excess 6.7 H Arterial Blood Oxygen Saturation 93.2 L Renard Test ACCEPTAB Arterial Blood Gas Puncture Site Right Radial Arterial Blood Carboxyhemoglobin 0.1 Arterial Blood Date Drawn 04/28/2016 7:20:04 AM Arterial Blood Methemoglobin 0.2 Arterial Blood pCO2 (Temp correct) 44.8 Arterial Blood pH (Temp corrected) 7.460 H Arterial Blood pO2 (Temp corrected) 66.0 L Blood Gas A-a O2 Differential 95.3 H Blood Gas Actual Respiration Rate 20 Blood Gas Low PEEP Setting 0 Blood Gas Modality VENT - AC Blood Gas Notified Time 04/28/2016 8:12:57 AM Blood Gas Notified Whom JLD Blood Gas Respiration Rate 18.0 Blood Gas Specimen Source Blood arterial Blood Gas Temperature 37.0 Blood Gas Tidal Volume 500.0 FiO2 30.0 Oxyhemoglobin Percent 92.9 L Total Hemoglobin 7.8 L Medications Current Medications Chlorhexidine Gluconate (Peridex) 15 ml Q12 MM Last administered on 04/28/16 09:24; Admin Dose 15 ML; Start 04/21/16 at 21:00 Ferrous Sulfate (Feosol Liquid Cup) 330 mg BID GTB Last administered on 09:24; Admin Dose 330 MG; Start 04/21/16 at 21:00 Lactobacillus Acidophilus/ Rhamnosus (Culturelle) 1 cap BID GTB Last administered on 04/28/16 09:24; Admin Dose 1 CAP; Start 04/21/16 at 21:00 Metoclopramide HCl (Reglan) 10 mg Q6 PRN GTB NAUSEA AND/OR VOMITING; Start 03/26 at 17:00 Multivitamins 5 ml 5 ml DAILY GTB Last administered on 04/28/16 09:24; Admin Dose 5 ML; Start 04/22/16 at 09:00 Sodium Chloride (1/2 NS) 1,000 ml @ 30 mls/hr Q24H IV Last administered on 17:46; Admin Dose 30 MLS/HR; Start 04/21/16 at 17:30 Miscellaneous Information 1 ea NOTE XX ; Start 04/21/16 at 17:30 Glucose (Glutose) 15 gm Q15M PRN PO DECREASED GLUCOSE; Start 04/21/16 at 17:30 Glucose (Glutose) 22.5 gm Q15M PRN PO DECREASED GLUCOSE; Start 04/21/16 at 17: 30 Dextrose (D50w Syringe) 25 ml Q15M PRN IV DECREASED GLUCOSE; Start 04/21/16 at 17:30 Dextrose (D50w Syringe) 50 ml Q15M PRN IV DECREASED GLUCOSE; Start 04/21/16 at 17:30 Glucagon (Glucagen) 1 mg Q15M PRN IM DECREASED GLUCOSE; Start 04/21/16 at 17:30 Glucose (Glutose) 15 gm Q15M PRN BUCCAL DECREASED GLUCOSE; Start 04/21/16 at 17 :30 Collagenase (Santyl) 1 applic DAILY TOP Last administered on 04/28/16 09:24; Admin Dose 1 APPLIC; Start 04/22/16 at 16:30 Nystatin 1 applic 1 applic BID TOP Last administered on 04/28/16 09:56; Admin Dose 1 APPLIC; Start 04/22/16 at 21:00 Cefepime HCl (Maxipime 1gm/50 ml (Pmx)) 50 ml @ 100 mls/hr Q12 IVPB Last administered on 04/28/16 09:29; Admin Dose 100 MLS/HR; Start 04/23/16 at 21:00 Lansoprazole (Prevacid) 30 mg DAILY@06 GTB Last administered on 04/28/16 05:57 ; Admin Dose 30 MG; Start 04/25/16 at 06:00 Fentanyl (Duragesic 50 Mcg/Hr Patch) 1 patch Q72H TRANSDERM Last administered on 04/26/16 23:25; Admin Dose 1 PATCH; Start 04/26/16 at 22:30 Lorazepam (Ativan) 1 mg Q2HWA PRN PEG Anxiety Last administered on 04/27/16 23 :40; Admin Dose 1 MG; Start 04/26/16 at 22:30 Clonazepam (Klonopin) 0.5 mg Q8 GTB Last administered on 04/28/16 05:57; Admin Dose 0.5 MG; Start 04/27/16 at 06:00 Acetaminophen (Tylenol Liquid) 650 mg Q6H PRN NGT PAIN AND OR ELEVATED TEMP Last administered on 04/27/16 14:42; Admin Dose 650 MG; Start 04/27/16 at 04:30 Insulin Aspart (Novolog Insulin Pen) NOVOLOG *MODERATE* ALGORI... Q4 SC Last administered on 04/27/16 12:58; Admin Dose 10 UNIT; Start 04/27/16 at 13:00; Status Future Hold Insulin Glargine (Lantus) 15 unit HS SC ; Start 04/27/16 at 21:00; Status Future Hold Insulin Aspart (Novolog Insulin Pen) 7 unit Q4 SC ; Start 04/27/16 at 13:00; Status Future Hold Amikacin Sulfate (Amikacin Iv Per Pharmacy) AMIKACIN PER PHARMACY NOTE XX ; Start 04/27/16 at 13:00 Diagnostic Test (Pha) (Accucheck) 1 ea Q1H XX Last administered on 04/28/16 09 :31; Admin Dose 1 EA; Start 04/27/16 at 14:00 Dextrose (D50w Syringe) 25 ml Q15M PRN IV Till BS 80 mg/dL or above x2; Start 04/27/16 at 14:00 Dextrose 50 ml 50 ml Q15M PRN IV Till BS 80 mg/dL or above x2; Start 04/27/16 at 14:00 Amikacin Sulfate/ Sodium Chloride (Amikacin/NS) 104 ml @ 102 mls/hr Q24H IVPB ; Start 04/28/16 at 15:00 IV Flush (NS 10 ml) 10 ml PRN PRN IV IV PROTOCOL; Start 04/27/16 at 17:30 Assessment/Plan Chief Complaint/Hosp Course IMPRESSION: A 65-year-old female with: 1. Chronic respiratory failure, tracheostomy dependent. Probable tracheobronchitis/ pneumonia 2. Anemia. Rule out gastrointestinal bleed. 3. Encephalopathy. Chronic 4. Acute renal failure. Likely prerenal now improved with hydration 5. Dehydration. 6. Hyperkalemia. Now resolved. 7. History of diabetes mellitus. Currently on insulin drip 8. History of hypertension. 9. Status post craniotomy. 10. History of congestive heart failure. 11. History of hypertension. RECOMMENDATIONS: 1. Aspiration precautions 2. Monitor H&H 3. Gastrointestinal evaluation noted. 4. Proton pump inhibitor. 5. Continue tracheostomy care. Mucomyst for secretions 6. Consider initiation of Lantus to wean off insulin drip Consider Grant evaluation Transfer to telemetry Problems: JORDON MONSON MD, [facility] Apr 28, 2016 10:09
[2016-04-28] MEDS ORDERED: AMIKACIN 1,000 MG in SOD CHLORIDE 0.9% 100 ML IVPB SCH (15:00)
--- NOTE | 2016-04-28 19:30 | PN ---
Date/Time of Note Date/Time of Note DATE: 04/28/16 TIME: 19:25 Assessment/Plan VTE Prophylaxis VTE Prophylaxis Intervention: other Lines/Catheters IV Catheter Type (from [facility]): PICC Line Urinary Cath still in place: Yes Assessment/Plan Assessment/Plan 1. Acute on chronic respiratory failure - per Dr. Mcbride's group in pulmonology consultation anemia. - Continue bronchodilators pulmonary total toilet and ventilator support. 2. Anemia -per Dr. Dowd from gastroenterology consultation. -sp EGD/Colonoscopy today - Continue Protonix. Stool for OB is negative. The patient has most likely anemia of chronic disease. - Continue to monitor hemoglobin and hematocrit. NO active blood loss. 3. Gram-negative rods tracheobronchitis. - per Dr. Hernadez in infection disease consultation. - Continue antibiotics per ID. 4. Acute kidney injury secondary to dehydration, resolved. - Continue to monitor BUN and creatinine. 5. Diabetes mellitus by history. - Persistent Hyperglycemia - on Insulin Drip 6. Multiple wounds. Continue to follow up wound care recommendations. Continue air mattress and local wound care. 7. Congestive heart failure by history. Continue to monitor intake and output. 8. Chronic encephalopathy with history of craniotomy. Continue Pepcid for peptic ulcer disease prophylaxis. Total critical assessment time spent- 30 mins. LUIZ Suarez Subjective 24 Hr Interval Summary Constitutional: requiring IVF, requiring O2 Exam/Review of Systems Vital Signs Vitals Vital Signs Date Time Temp Pulse Resp B/P Pulse Ox O2 Delivery O2 Flow Rate FiO2 04/28/16 19:00 126 26 138/60 96 Mechanical Ventilator 04/28/16 17:50 30 04/28/16 16:00 100.0 04/25/16 15:39 8.0 Intake and Output 04/27/16 04/27/16 04/28/16 15:00 23:00 07:00 Intake Total 950 ml 1842 ml 3290.5 ml Output Total 490 ml 370 ml 385 ml Balance 460 ml 1472 ml 2905.5 ml Exam Constitutional: alert Psych: confusion, nl mood/affect Eyes: PERRL, nl sclera ENMT: nl external ears & nose Neck: non-tender Respiratory: diminished breath sounds, other (trach intact) Cardiovascular: nl pulses Gastrointestinal: non-tender, soft Musculoskeletal: other Extremities: normal pulses Neurological: confused Skin: other Lymph: nontender Results Result Diagram: 04/28/16 0345 04/28/16 0345 Results 24 hrs Laboratory Tests Test 04/27/16 19:29 04/27/16 20:22 04/27/16 21:17 04/27/16 22:20 Bedside Glucose 228 H 218 201 196 Test 04/27/16 23:07 04/28/16 00:27 04/28/16 01:04 04/28/16 01:05 Bedside Glucose 187 155 122 Random Amikacin Level Test 04/28/16 02:54 04/28/16 03:45 04/28/16 04:51 04/28/16 06:42 Bedside Glucose 131 121 Anion Gap 15 Basophils # 0.0 Basophils % 0.2 Blood Morphology Comment Blood Urea Nitrogen 14 Calcium Level 8.6 Carbon Dioxide Level 28 Chloride Level 99 Creatinine 0.52 Eosinophils # 0.8 H Eosinophils % 3.9 Glucose Level 108 # Hematocrit 25.8 L Hemoglobin 8.5 L Lymphocytes # 3.1 H Lymphocytes % 15.2 Mean Corpuscular Hemoglobin 31.3 Mean Corpuscular Hemoglobin Concent 32.8 Mean Corpuscular Volume 95.3 Mean Platelet Volume 8.9 Monocytes # 3.1 H Monocytes % 15.3 H Neutrophils # 13.3 H Neutrophils % 65.4 Nucleated Red Blood Cells # 0.6 H Nucleated Red Blood Cells % 2.9 H Platelet Count 200 Potassium Level 3.9 Red Blood Count 2.71 L Red Cell Distribution Width 19.7 H Sodium Level 138 White Blood Count 20.3 H Lab Scanned Report REFERENCE LAB Test 04/28/16 06:52 04/28/16 07:00 04/28/16 09:32 04/28/16 11:18 Bedside Glucose 113 132 136 Arterial Blood HCO3 31.1 H Arterial Blood Base Excess 6.7 H Arterial Blood Oxygen Saturation 93.2 L Renard Test ACCEPTAB Arterial Blood Gas Puncture Site Right Radial Arterial Blood Carboxyhemoglobin 0.1 Arterial Blood Date Drawn 04/28/2016 7:20:04 AM Arterial Blood Methemoglobin 0.2 Arterial Blood pCO2 (Temp correct) 44.8 Arterial Blood pH (Temp corrected) 7.460 H Arterial Blood pO2 (Temp corrected) 66.0 L Blood Gas A-a O2 Differential 95.3 H Blood Gas Actual Respiration Rate 20 Blood Gas Low PEEP Setting 0 Blood Gas Modality VENT - AC Blood Gas Notified Time 04/28/2016 8:12:57 AM Blood Gas Notified Whom JLD Blood Gas Respiration Rate 18.0 Blood Gas Specimen Source Blood arterial Blood Gas Temperature 37.0 Blood Gas Tidal Volume 500.0 FiO2 30.0 Oxyhemoglobin Percent 92.9 L Total Hemoglobin 7.8 L Test 04/28/16 13:53 04/28/16 15:37 04/28/16 17:51 04/28/16 19:01 Bedside Glucose 128 132 141 178 Medications Medications Current Medications Chlorhexidine Gluconate (Peridex) 15 ml Q12 MM Last administered on 04/28/16 09:24; Admin Dose 15 ML; Start 04/21/16 at 21:00 Ferrous Sulfate (Feosol Liquid Cup) 330 mg BID GTB Last administered on 09:24; Admin Dose 330 MG; Start 04/21/16 at 21:00 Lactobacillus Acidophilus/ Rhamnosus (Culturelle) 1 cap BID GTB Last administered on 04/28/16 09:24; Admin Dose 1 CAP; Start 04/21/16 at 21:00 Metoclopramide HCl (Reglan) 10 mg Q6 PRN GTB NAUSEA AND/OR VOMITING; Start 03/26 at 17:00 Multivitamins 5 ml 5 ml DAILY GTB Last administered on 04/28/16 09:24; Admin Dose 5 ML; Start 04/22/16 at 09:00 Sodium Chloride (1/2 NS) 1,000 ml @ 30 mls/hr Q24H IV Last administered on 17:46; Admin Dose 30 MLS/HR; Start 04/21/16 at 17:30 Miscellaneous Information 1 ea NOTE XX ; Start 04/21/16 at 17:30 Glucose (Glutose) 15 gm Q15M PRN PO DECREASED GLUCOSE; Start 04/21/16 at 17:30 Glucose (Glutose) 22.5 gm Q15M PRN PO DECREASED GLUCOSE; Start 04/21/16 at 17: 30 Dextrose (D50w Syringe) 25 ml Q15M PRN IV DECREASED GLUCOSE; Start 04/21/16 at 17:30 Dextrose (D50w Syringe) 50 ml Q15M PRN IV DECREASED GLUCOSE; Start 04/21/16 at 17:30 Glucagon (Glucagen) 1 mg Q15M PRN IM DECREASED GLUCOSE; Start 04/21/16 at 17:30 Glucose (Glutose) 15 gm Q15M PRN BUCCAL DECREASED GLUCOSE; Start 04/21/16 at 17 :30 Collagenase (Santyl) 1 applic DAILY TOP Last administered on 04/28/16 09:24; Admin Dose 1 APPLIC; Start 04/22/16 at 16:30 Nystatin 1 applic 1 applic BID TOP Last administered on 04/28/16 09:56; Admin Dose 1 APPLIC; Start 04/22/16 at 21:00 Cefepime HCl (Maxipime 1gm/50 ml (Pmx)) 50 ml @ 100 mls/hr Q12 IVPB Last administered on 04/28/16 09:29; Admin Dose 100 MLS/HR; Start 04/23/16 at 21:00 Lansoprazole (Prevacid) 30 mg DAILY@06 GTB Last administered on 04/28/16 05:57 ; Admin Dose 30 MG; Start 04/25/16 at 06:00 Fentanyl (Duragesic 50 Mcg/Hr Patch) 1 patch Q72H TRANSDERM Last administered on 04/26/16 23:25; Admin Dose 1 PATCH; Start 04/26/16 at 22:30 Lorazepam (Ativan) 1 mg Q2HWA PRN PEG Anxiety Last administered on 04/27/16 23 :40; Admin Dose 1 MG; Start 04/26/16 at 22:30 Clonazepam (Klonopin) 0.5 mg Q8 GTB Last administered on 04/28/16 14:49; Admin Dose 0.5 MG; Start 04/27/16 at 06:00 Acetaminophen (Tylenol Liquid) 650 mg Q6H PRN NGT PAIN AND OR ELEVATED TEMP Last administered on 04/27/16 14:42; Admin Dose 650 MG; Start 04/27/16 at 04:30 Insulin Aspart (Novolog Insulin Pen) NOVOLOG *MODERATE* ALGORI... Q4 SC Last administered on 04/27/16 12:58; Admin Dose 10 UNIT; Start 04/27/16 at 13:00; Status Future Hold Insulin Glargine (Lantus) 15 unit HS SC ; Start 04/27/16 at 21:00; Status Future Hold Insulin Aspart (Novolog Insulin Pen) 7 unit Q4 SC ; Start 04/27/16 at 13:00; Status Future Hold Amikacin Sulfate (Amikacin Iv Per Pharmacy) AMIKACIN PER PHARMACY NOTE XX ; Start 04/27/16 at 13:00 Diagnostic Test (Pha) (Accucheck) 1 ea Q1H XX Last administered on 04/28/16t 19 :01; Admin Dose 1 EA; Start 04/27/16 at 14:00 Dextrose (D50w Syringe) 25 ml Q15M PRN IV Till BS 80 mg/dL or above x2; Start 04/27/16 at 14:00 Dextrose (D50w Syringe) 50 ml Q15M PRN IV Till BS 80 mg/dL or above x2; Start 04/27/16 at 14:00 IV Flush 10 ml 10 ml PRN PRN IV IV PROTOCOL; Start 04/27/16 at 17:30 Amikacin Sulfate/ Sodium Chloride (Amikacin/NS) 104 ml @ 104 mls/hr Q36H IVPB ; Start 04/29/16 at 03:00 JUAN POSADA Apr 28, 2016 19:30
[2016-04-28] MEDS ORDERED: DEXTROSE 5%-0.9% NACL 1,000 ML IV SCH (20:30)
[2016-04-29] VITALS (57 sets, daily range): BP systolic 94–145; BP diastolic 46–95; PULSE 104–121; RESP 18–33
[2016-04-29] MEDS: ACCUCHECK XX SCH ×23 (01:06→23:00)
[2016-04-29] MEDS: ALBUTEROL/IPRATROPIUM (NEB) 3 ML AMP NEB PRN ×3 (01:17→13:27)
[2016-04-29] MEDS: ACETYLCYSTEINE 20% 4 ML VIAL NEB SCH ×4 (01:17→20:23)
[2016-04-29] MEDS: AMIKACIN 1,000 MG in SOD CHLORIDE 0.9% 100 ML IVPB SCH (03:25)
[2016-04-29 05:30] LABS: BASOPHIL # 0.1 10^3/ul (0.0-0.1); BASOPHILS % 0.3 % (0.0-2.0); EOSINOPHILS # 0.6 10^3/ul (0.0-0.5); EOSINOPHILS % 3.5 % (0.0-7.0); HEMATOCRIT 25.1 % (37.0-47.0); HEMOGLOBIN 8.1 g/dl (12.0-16.0); LYMPHOCYTES # 2.5 10^3/ul (0.8-2.9); LYMPHOCYTES % 13.4 % (15.0-51.0); MEAN CORPUSCULAR HGB CONC 32.4 g/dl (32.0-37.0); MEAN CORPUSCULAR VOLUME 95.7 fl (82.0-101.0); MEAN PLATELET VOLUME 9.1 fl (7.4-10.4); MONOCYTE # 2.8 10^3/ul (0.3-0.9); MONOCYTES % 15.4 % (0.0-11.0); NEUTROPHIL # 12.3 10^3/ul (1.6-7.5); NEUTROPHILS % 67.4 % (39.0-77.0); NUCLEATED RED BLOOD CELLS% 3.3 /100WBC (0.0-0.0); PLATELET COUNT 194 10^3/UL (140-440); RED BLOOD COUNT 2.62 10^6/ul (4.20-5.40); RED CELL DISTRIBUTION WIDTH 19.5 % (11.5-14.5); UNCORRECTED WBC 18.2 10^3/ul (4.8-10.8); WHITE BLOOD COUNT 18.2 10^3/ul (4.8-10.8)
[2016-04-29 05:32] LABS: ALBUMIN 2.5 g/dl (3.3-4.9); POTASSIUM 3.6 mmol/L (3.5-5.1)
[2016-04-29 05:34] LABS: BILIRUBIN,INDIRECT 0.1 mg/dl (0-1.1); BILIRUBIN,TOTAL 0.1 mg/dl (0.2-1.3); CREATININE 0.48 mg/dl (0.44-1.00)
[2016-04-29 05:35] LABS: ALBUMIN/GLOBULIN RATIO 0.83; CALCIUM 8.7 mg/dl (8.4-10.2); TOTAL PROTEIN 5.5 g/dl (6.1-8.1)
[2016-04-29 05:37] LABS: CONDITION 1; LH ANALYZER COMMENTS 1; NUCLEATED RED BLOOD CELLS # 0.6 10^3/ul (0.0-0.0)
[2016-04-29] MEDS: LANSOPRAZOLE 30 MG CAP GTB SCH (05:57)
[2016-04-29] MEDS: clonAZEPAM 0.5 MG TAB GTB SCH ×3 (05:57→21:20)
--- NOTE | 2016-04-29 06:23 | GILP ---
DATE OF PROCEDURE: PROCEDURE PERFORMED: Esophagogastroduodenoscopy with biopsy and colonoscopy with biopsy and endocli pping. INDICATION: A 65-year-old female undergoing this procedure for anemia, most probably related to gas trointestinal blood loss because her reticulocyte count was high. Besides the patient having GI sym ptoms, never had a colon cancer screening, and also as per the daughter, she had intermittent nausea and vomiting for the last 1 month with abdominal pain. INFORMED CONSENT: The risk of the procedure, related and unrelated complications, anesthetic risks, alternatives were thoroughly discussed with the family, and informed consent was obtained. The pro cedure was done bedside. DESCRIPTION OF PROCEDURE: The patient was sedated by the anesthesiologist. After optimal sedation, scope was passed with much ease into esophagus. Z line was at 37 cm. There was a small ulcer or v isible lesion identified just beneath the Z line, and there was a blood vessel small crossing over t hat lesion. This was about 6 to 7 mm in diameter. I was afraid to take a biopsy. Biopsy taken fro m the Z line to rule out Swann's. The patient had probably some gastric surgery, maybe the lap ba nd because the distal part of the stomach and proximal part both were , maybe like a lap ba nd. The patient had, on the lesser curvature side, a lot of granulation tissue like structure. I w ould say the mucosa appeared like cauliflower in appearance. This was about 3 to 4 cm in diameter. Multiple biopsies were taken. The exact significance of this is not clear. The patient also had a n ulcer beneath the bumper, and this ulcer was benign looking. Stomach mucosa revealed gastritis. Duodenum, first and second part, was within normal limits. Ampulla appeared normal. In the fundal pouch, also there was some element of granulation tissue like structure. The scope was thus removed with good patient tolerance. IMPRESSION 1. Z line at 37 cm. Biopsy taken to rule out Swann's. 2. Small visible lesion almost umbilicated with blood vessels capillary crossing it identified. Th is was 7 to 8 mm in diameter. 3. The stomach was divided into 2 different pouches, proximal and distal, maybe by lap band like st ructure. The stoma was open. 4. Cauliflower like carpet-like lesion about 3 to 4 cm in diameter on the lesser curvature side of the midportion of the stomach. Multiple biopsies were obtained. 5. Duodenum, first and second part, within normal limits. PLAN: To review histopathology. Continue PPI. COLONOSCOPY REPORT: The patient was turned around, and scope was passed with much ease into rectum and advanced slowly all the way into cecum. Cecum was filled with stool. I removed it. There we s aw the granulation tissue and a 2 cm ulcer. Three biopsies obtained. Maybe possibly ischemic ulcer or CMV infection. Similar ulcer was identified near the hepatic flexure. Again, two biopsies obta ined with ulceration and granulation tissue surrounding it. There was another 8 to 9 mm polyp in th e transverse colon. I told the triage technician to close it slowly. We used a cold snare, and there was increased peristalsis when he closed it. I immediately told him to open it because I felt there was a fold which was not well visible entered into the snare while he was closing it. When I asked him to open the snare, I saw some fibrous tissue so decided not to do the polypectomy, and I deployed 2 endoclips successfully to prevent perforation. Then the scope was removed. The rest of the colon appeared normal. She had good peristalsis and tolerated the procedure very well. IMPRESSION: 1. Cecal ulcer 2 cm in diameter, surrounded by the granulation tissue, 3 to 4 biopsies obtained. 2. Hepatic flexure ulcer surrounded by granulation tissue. 3. Sessile flat polyp in the transverse colon. While doing polypectomy, when the triage technician closed it, because of the peristalsis, fold may have entered it. We did not do polypectomy and immediatel y applied the endoclip. The rest of the colon was normal. PLAN: To observe the patient for 24 hours before feeding. If the abdomen is benign, then we will r esume feeding. We will review the histopathology for the possible ischemia or CMV infection or to r ule out also Crohn's ulcer. Dictated By: INES PEÑA/DENNIS Conf#: [id number] DID#: [id number]
[2016-04-29] MEDS: FERROUS SULFATE 60 MG/ML 5ML CUP GTB SCH ×2 (08:10→21:20)
[2016-04-29] MEDS: MULTIVITAMINS 5 ML CUP GTB SCH (08:10)
[2016-04-29] MEDS: CHLORHEXIDINE GLUCONATE 15 ML UD CUP MM SCH ×2 (08:10→21:20)
[2016-04-29] MEDS: NYSTATIN 30 GM POWDER BTL TOP SCH ×2 (08:11→21:21)
[2016-04-29] MEDS: LACTOBACILLUS RHAMNOSUS CAP GTB SCH ×2 (08:11→21:20)
[2016-04-29] MEDS: COLLAGENASE 30 GM TUBE TOP SCH (08:11)
[2016-04-29] MEDS: CEFEPIME 1GM/50 ML (PMX) 50 ML IVPB SCH ×2 (08:12→21:21)
[2016-04-29] MEDS: INSULIN REGULAR, HUMAN 100 UNIT in SOD CHLORIDE 0.9% 99 ML IV SCH ×2 (11:49)
--- NOTE | 2016-04-29 11:51 | PN ---
DATE: 04/29/2016 INFECTIOUS DISEASE PROGRESS NOTE SUBJECTIVE: The patient remains unchanged overnight. She is on insulin drip. T-max yesterday 100. 8, T-current 99.9, pulse 108, respirations 20, blood pressure 100% on vent, blood pressure 140/66. LABORATORY DATA: WBC 18.2, H and H 8.1 and 25.1, platelets 194, BUN 9, creatinine 0.48. MICROBIOLOGY: Blood cultures remain negative since admission. INDWELLINGS: Trach, PEG, Rivera, PICC line placed on April 27. ANTIMICROBIALS: 1. Amikacin. 2. Cefepime. PHYSICAL EXAMINATION: GENERAL: This is a chronically ill-appearing, elderly woman who is in no distress. HEENT: Head atraumatic, normocephalic. Sclerae anicteric. Buccal mucosa dry. NECK: Supple. Tracheostomy present. CHEST: Rise symmetrical. Breath sounds diminished to bases. HEART: S1, S2. ABDOMEN: Soft. Bowel sounds present. EXTREMITIES: Without cyanosis. ASSESSMENT: 1. Systemic inflammatory response syndrome with persistent leukocytosis, status post sepsis with sh ock. 2. Healthcare-acquired pneumonia with sputum culture growing multi-drug resistant Proteus mirabilis and Pseudomonas aeruginosa. 3. Anemia, status post esophagogastroduodenoscopy and colonoscopy, rule out Swann's esophagus. T he patient also had polyps in the transverse colon. Biopsies were sent, results are pending, gastro enterology on case. Ruling out ischemia or CMV infection or Crohn's disease. 4. Diabetes. 5. Dysphagia. 6. Chronic respiratory failure. 7. History of craniotomy. PLAN: The patient remains hemodynamically stable. She is being followed by gastroenterology and pu lmonary team. Biopsies and pathology report pending. Pending procalcitonin level. We will continu e her on current regimen in regards to antibiotics. Dictated By: JEFF SERNA EXERCISE SCIENTIST for ANGEL REAL/DENNIS Conf#: [id number] DID#: [id number]
--- NOTE | 2016-04-29 12:04 | PN ---
DATE: 04/29/2016 SUBJECTIVE: Chart reviewed. The patient remains on ventilator, saturating 96% and does not appear in acute distress. The patient remains on insulin infusion. PHYSICAL EXAMINATION: VITAL SIGNS: Blood pressure 117/56, pulse 113, respirations 22, temperature 99.9. HEENT: Pupils are equal and react to light. NECK: Supple, no JVD noted, no cervical adenopathy. There are no carotid bruits heard. LUNGS: Few scattered rhonchi. CARDIOVASCULAR: S1, S2 normal. ABDOMEN: Soft, nontender. EXTREMITIES: No clubbing or cyanosis noted. NEUROLOGIC: No changes. LABORATORY: WBC 18.2, hemoglobin 8.1, hematocrit 25.1, platelets 194. Sodium 140, potassium 3.6, c hloride 102, CO2 29, BUN 9, creatinine 0.48, glucose 141. IMPRESSION: 1. Ventilator-dependent respiratory failure, tracheostomy dependent, hypoxemic. 2. Probable pneumonia. 3. Anemia, status post esophagogastroduodenoscopy and colonoscopy, cecal and hepatic flexure ulcers noted. Abnormalities of the stomach were seen and biopsied as well. 4. Chronic encephalopathy. 5. History of diabetes mellitus. 6. Hypertension. 7. Status post craniotomy. 8. History of congestive heart failure. 9. History of hypertension. 10. Anemia. RECOMMENDATIONS: 1. Continue ventilator support. 2. GI noted. 3. Continue insulin. 4. Continue PPI. 5. Once patient is off the insulin drip. The patient should have evaluation by [facility]. Dictated By: GUME ELDRIDGE MD, MA/DENNIS Conf#: [id number] DID#: [id number]
--- NOTE | 2016-04-29 13:48 | PN ---
Date/Time of Note Date/Time of Note DATE: 04/29/16 TIME: 13:47 Assessment/Plan VTE Prophylaxis VTE Prophylaxis Intervention: other Lines/Catheters IV Catheter Type (from Nrs): PICC Line Central line still needed: Yes Urinary Cath still in place: Yes Reason Cath still needed: skin wounds contaminated by urine Assessment/Plan Chief Complaint/Hosp Course 1) sepsis - continue antibiotics 2) respiratory failure - on ventilator Problems: Subjective 24 Hr Interval Summary Free Text/Dictation Patient is sedated and intubated Exam/Review of Systems Vital Signs Vitals Vital Signs Date Time Temp Pulse Resp B/P Pulse Ox O2 Delivery O2 Flow Rate FiO2 04/29/16 13:30 118 23 123/74 100 Mechanical Ventilator 04/29/16 12:00 98.0 04/29/16 11:40 40 04/25/16 15:39 8.0 Intake and Output 04/28/16 04/28/16 04/29/16 15:00 23:00 07:00 Intake Total 293 ml 614 ml 552 ml Output Total 360 ml 735 ml 555 ml Balance -67 ml -121 ml -3 ml Exam Constitutional: well developed Head: atraumatic, normocephalic Respiratory: diminished breath sounds Cardiovascular: regular rate and rhythm Gastrointestinal: non-tender, soft Results Result Diagram: 04/29/16 0500 04/29/16 0500 Results 24 hrs Laboratory Tests Test 04/28/16 13:53 04/28/16 15:37 04/28/16 17:51 04/28/16 19:01 Bedside Glucose 128 132 141 178 Test 04/28/16 20:25 04/28/16 21:25 04/28/16 22:38 04/28/16 23:20 Bedside Glucose 207 199 165 173 Test 04/29/16 00:32 04/29/16 01:27 04/29/16 02:32 04/29/16 03:24 Bedside Glucose 155 146 149 154 Test 04/29/16 04:53 04/29/16 05:00 04/29/16 05:55 04/29/16 06:58 Bedside Glucose 148 138 135 Alanine Aminotransferase (ALT/SGPT) 35 Albumin 2.5 L Albumin/Globulin Ratio 0.83 Alkaline Phosphatase 73 Anion Gap 13 Aspartate Amino Transf (AST/SGOT) 29 Basophils # 0.1 Basophils % 0.3 Blood Morphology Comment Blood Urea Nitrogen 9 Calcium Level 8.7 Carbon Dioxide Level 29 Chloride Level 102 Creatinine 0.48 Direct Bilirubin 0.00 Eosinophils # 0.6 H Eosinophils % 3.5 Globulin 3.00 Glucose Level 141 Hematocrit 25.1 L Hemoglobin 8.1 L Indirect Bilirubin 0.1 Lymphocytes # 2.5 Lymphocytes % 13.4 L Mean Corpuscular Hemoglobin 31.0 Mean Corpuscular Hemoglobin Concent 32.4 Mean Corpuscular Volume 95.7 Mean Platelet Volume 9.1 Monocytes # 2.8 H Monocytes % 15.4 H Neutrophils # 12.3 H Neutrophils % 67.4 Nucleated Red Blood Cells # 0.6 H Nucleated Red Blood Cells % 3.3 H Platelet Count 194 Potassium Level 3.6 Red Blood Count 2.62 L Red Cell Distribution Width 19.5 H Sodium Level 140 Total Bilirubin 0.1 L Total Protein 5.5 L White Blood Count 18.2 H Test 04/29/16 09:17 04/29/16 11:04 04/29/16 13:01 Bedside Glucose 144 162 145 Medications Medications Current Medications Chlorhexidine Gluconate (Peridex) 15 ml Q12 MM Last administered on 04/29/16 08:10; Admin Dose 15 ML; Start 04/21/16 at 21:00 Ferrous Sulfate (Feosol Liquid Cup) 330 mg BID GTB Last administered on 08:10; Admin Dose 330 MG; Start 04/21/16 at 21:00 Lactobacillus Acidophilus/ Rhamnosus (Culturelle) 1 cap BID GTB Last administered on 04/29/16 08:11; Admin Dose 1 CAP; Start 04/21/16 at 21:00 Metoclopramide HCl (Reglan) 10 mg Q6 PRN GTB NAUSEA AND/OR VOMITING; Start 03/26 at 17:00 Multivitamins (Thera-Plus) 5 ml DAILY GTB Last administered on 04/29/16 08:10 ; Admin Dose 5 ML; Start 04/22/16 at 09:00 Miscellaneous Information 1 ea NOTE XX ; Start 04/21/16 at 17:30 Glucose (Glutose) 15 gm Q15M PRN PO DECREASED GLUCOSE; Start 04/21/16 at 17:30 Glucose (Glutose) 22.5 gm Q15M PRN PO DECREASED GLUCOSE; Start 04/21/16 at 17: 30 Dextrose (D50w Syringe) 25 ml Q15M PRN IV DECREASED GLUCOSE; Start 04/21/16 at 17:30 Dextrose (D50w Syringe) 50 ml Q15M PRN IV DECREASED GLUCOSE; Start 04/21/16 at 17:30 Glucagon (Glucagen) 1 mg Q15M PRN IM DECREASED GLUCOSE; Start 04/21/16 at 17:30 Glucose (Glutose) 15 gm Q15M PRN BUCCAL DECREASED GLUCOSE; Start 04/21/16 at 17 :30 Collagenase (Santyl) 1 applic DAILY TOP Last administered on 04/29/16 08:11; Admin Dose 1 APPLIC; Start 04/22/16 at 16:30 Nystatin 1 applic 1 applic BID TOP Last administered on 04/29/16 08:11; Admin Dose 1 APPLIC; Start 04/22/16 at 21:00 Cefepime HCl (Maxipime 1gm/50 ml (Pmx)) 50 ml @ 100 mls/hr Q12 IVPB Last administered on 04/29/16 08:12; Admin Dose 100 MLS/HR; Start 04/23/16 at 21:00 Lansoprazole (Prevacid) 30 mg DAILY@06 GTB Last administered on 04/29/16 05:57 ; Admin Dose 30 MG; Start 04/25/16 at 06:00 Fentanyl (Duragesic 50 Mcg/Hr Patch) 1 patch Q72H TRANSDERM Last administered on 04/26/16 23:25; Admin Dose 1 PATCH; Start 04/26/16 at 22:30 Lorazepam (Ativan) 1 mg Q2HWA PRN PEG Anxiety Last administered on 04/27/16 23 :40; Admin Dose 1 MG; Start 04/26/16 at 22:30 Clonazepam (Klonopin) 0.5 mg Q8 GTB Last administered on 04/29/16 05:57; Admin Dose 0.5 MG; Start 04/27/16 at 06:00 Acetaminophen (Tylenol Liquid) 650 mg Q6H PRN NGT PAIN AND OR ELEVATED TEMP Last administered on 04/27/16 14:42; Admin Dose 650 MG; Start 04/27/16 at 04:30 Insulin Aspart (Novolog Insulin Pen) NOVOLOG *MODERATE* ALGORI... Q4 SC Last administered on 04/27/16 12:58; Admin Dose 10 UNIT; Start 04/27/16 at 13:00; Status Future Hold Insulin Glargine (Lantus) 15 unit HS SC ; Start 04/27/16 at 21:00; Status Future Hold Insulin Aspart (Novolog Insulin Pen) 7 unit Q4 SC ; Start 04/27/16 at 13:00; Status Future Hold Amikacin Sulfate (Amikacin Iv Per Pharmacy) AMIKACIN PER PHARMACY NOTE XX ; Start 04/27/16 at 13:00 Diagnostic Test (Pha) (Accucheck) 1 ea Q1H XX Last administered on 04/29/16 13 :12; Admin Dose 1 EA; Start 04/27/16 at 14:00 Dextrose (D50w Syringe) 25 ml Q15M PRN IV Till BS 80 mg/dL or above x2; Start 04/27/16 at 14:00 Dextrose (D50w Syringe) 50 ml Q15M PRN IV Till BS 80 mg/dL or above x2; Start 04/27/16 at 14:00 IV Flush 10 ml 10 ml PRN PRN IV IV PROTOCOL; Start 04/27/16 at 17:30 Amikacin Sulfate/ Sodium Chloride (Amikacin/NS) 104 ml @ 104 mls/hr Q36H IVPB Last administered on 04/29/16 03:25; Admin Dose 104 MLS/HR; Start 04/29/16 at 03:00 MICHOACANO HOBBS Apr 29, 2016 13:48
--- NOTE | 2016-04-29 14:11 | CONS ---
Date/Time of Note Date/Time of Note DATE: 04/29/16 TIME: 14:08 Assessment/Plan Assessment/Plan Additional Assessment/Plan Additional Assessment/Plan Assessment/Plan Additional Assessment/Plan ASSESSMENT AND PLAN: 1. Anemia, gastritis,gastric ulcer,ischemic ulcer in colon 2. Diabetes mellitus. 3. Cerebrovascular accident. 4. Vent dependent respiratory failure.transferred to ICU for worsening of her condition. 5. Paroxysmal atrial fibrillation. 6. Dysphagia status post G-tube. 7. Hypertension. 8. Renal insufficiency. 9. Multiple wounds. 10. Cardiomyopathy. 11.intermittent vomiting for months as per daughter 12.sepsis Plan antibiotics as per ID resume feeding PPI continue PPI Consultation Date/Type/Reason Admit Date/Time Apr 21, 2016 at 10:39 Type of Consultation: pulmonary 24 HR Interval Summary Free Text/Dictation no abdominal pain Constitutional: no complaints Exam/Review of Systems Vital Signs Vitals Vital Signs Date Time Temp Pulse Resp B/P Pulse Ox O2 Delivery O2 Flow Rate FiO2 04/29/16 13:30 118 23 123/74 100 Mechanical Ventilator 04/29/16 12:00 98.0 04/29/16 11:40 40 04/25/16 15:39 8.0 Intake and Output 04/28/16 04/28/16 04/29/16 15:00 23:00 07:00 Intake Total 293 ml 614 ml 552 ml Output Total 360 ml 735 ml 555 ml Balance -67 ml -121 ml -3 ml Exam Constitutional: alert, oriented, well developed Psych: nl mood/affect, no complaints Head: atraumatic, normocephalic Eyes: EOMI, PERRL, nl conjunctiva, nl lids, nl sclera ENMT: nl external ears & nose, nl lips & teeth, nl nasal mucosa & septum Neck: non-tender, supple Respiratory: clear to auscultation, normal air movement Cardiovascular: nl pulses, regular rate and rhythm Gastrointestinal: nl liver, spleen, non-tender, soft Musculoskeletal: nl extremities to inspection, nl gait and stance Extremities: normal pulses Neurological: REPAIR CAMERAMAN II-XII intact, nl mental status, nl speech, nl strength Skin: nl turgor, No rash or lesions Lymph: nl lymph nodes Results Result Diagram: 04/29/16 0500 04/29/16 0500 Results 24 hrs Laboratory Tests Test 04/28/16 15:37 04/28/16 17:51 04/28/16 19:01 04/28/16 20:25 Bedside Glucose 132 141 178 207 Test 04/28/16 21:25 04/28/16 22:38 04/28/16 23:20 04/29/16 00:32 Bedside Glucose 199 165 173 155 Test 04/29/16 01:27 04/29/16 02:32 04/29/16 03:24 04/29/16 04:53 Bedside Glucose 146 149 154 148 Test 04/29/16 05:00 04/29/16 05:55 04/29/16 06:58 04/29/16 09:17 Alanine Aminotransferase (ALT/SGPT) 35 Albumin 2.5 L Albumin/Globulin Ratio 0.83 Alkaline Phosphatase 73 Anion Gap 13 Aspartate Amino Transf (AST/SGOT) 29 Basophils # 0.1 Basophils % 0.3 Blood Morphology Comment Blood Urea Nitrogen 9 Calcium Level 8.7 Carbon Dioxide Level 29 Chloride Level 102 Creatinine 0.48 Direct Bilirubin 0.00 Eosinophils # 0.6 H Eosinophils % 3.5 Globulin 3.00 Glucose Level 141 Hematocrit 25.1 L Hemoglobin 8.1 L Indirect Bilirubin 0.1 Lymphocytes # 2.5 Lymphocytes % 13.4 L Mean Corpuscular Hemoglobin 31.0 Mean Corpuscular Hemoglobin Concent 32.4 Mean Corpuscular Volume 95.7 Mean Platelet Volume 9.1 Monocytes # 2.8 H Monocytes % 15.4 H Neutrophils # 12.3 H Neutrophils % 67.4 Nucleated Red Blood Cells # 0.6 H Nucleated Red Blood Cells % 3.3 H Platelet Count 194 Potassium Level 3.6 Red Blood Count 2.62 L Red Cell Distribution Width 19.5 H Sodium Level 140 Total Bilirubin 0.1 L Total Protein 5.5 L White Blood Count 18.2 H Bedside Glucose 138 135 144 Test 04/29/16 11:04 04/29/16 13:01 Bedside Glucose 162 145 Medications Medications Current Medications Chlorhexidine Gluconate (Peridex) 15 ml Q12 MM Last administered on 04/29/16 08:10; Admin Dose 15 ML; Start 04/21/16 at 21:00 Ferrous Sulfate (Feosol Liquid Cup) 330 mg BID GTB Last administered on 08:10; Admin Dose 330 MG; Start 04/21/16 at 21:00 Lactobacillus Acidophilus/ Rhamnosus (Culturelle) 1 cap BID GTB Last administered on 04/29/16 08:11; Admin Dose 1 CAP; Start 04/21/16 at 21:00 Metoclopramide HCl (Reglan) 10 mg Q6 PRN GTB NAUSEA AND/OR VOMITING; Start 03/26 at 17:00 Multivitamins (Thera-Plus) 5 ml DAILY GTB Last administered on 04/29/16 08:10 ; Admin Dose 5 ML; Start 04/22/16 at 09:00 Miscellaneous Information 1 ea NOTE XX ; Start 04/21/16 at 17:30 Glucose (Glutose) 15 gm Q15M PRN PO DECREASED GLUCOSE; Start 04/21/16 at 17:30 Glucose (Glutose) 22.5 gm Q15M PRN PO DECREASED GLUCOSE; Start 04/21/16 at 17: 30 Dextrose (D50w Syringe) 25 ml Q15M PRN IV DECREASED GLUCOSE; Start 04/21/16 at 17:30 Dextrose (D50w Syringe) 50 ml Q15M PRN IV DECREASED GLUCOSE; Start 04/21/16 at 17:30 Glucagon (Glucagen) 1 mg Q15M PRN IM DECREASED GLUCOSE; Start 04/21/16 at 17:30 Glucose (Glutose) 15 gm Q15M PRN BUCCAL DECREASED GLUCOSE; Start 04/21/16 at 17 :30 Collagenase (Santyl) 1 applic DAILY TOP Last administered on 04/29/16 08:11; Admin Dose 1 APPLIC; Start 04/22/16 at 16:30 Nystatin 1 applic 1 applic BID TOP Last administered on 04/29/16 08:11; Admin Dose 1 APPLIC; Start 04/22/16 at 21:00 Cefepime HCl (Maxipime 1gm/50 ml (Pmx)) 50 ml @ 100 mls/hr Q12 IVPB Last administered on 04/29/16 08:12; Admin Dose 100 MLS/HR; Start 04/23/16 at 21:00 Lansoprazole (Prevacid) 30 mg DAILY@06 GTB Last administered on 04/29/16 05:57 ; Admin Dose 30 MG; Start 04/25/16 at 06:00 Fentanyl (Duragesic 50 Mcg/Hr Patch) 1 patch Q72H TRANSDERM Last administered on 04/26/16 23:25; Admin Dose 1 PATCH; Start 04/26/16 at 22:30 Lorazepam (Ativan) 1 mg Q2HWA PRN PEG Anxiety Last administered on 04/27/16 23 :40; Admin Dose 1 MG; Start 04/26/16 at 22:30 Clonazepam (Klonopin) 0.5 mg Q8 GTB Last administered on 04/29/16 05:57; Admin Dose 0.5 MG; Start 04/27/16 at 06:00 Acetaminophen (Tylenol Liquid) 650 mg Q6H PRN NGT PAIN AND OR ELEVATED TEMP Last administered on 04/27/16 14:42; Admin Dose 650 MG; Start 04/27/16 at 04:30 Insulin Aspart (Novolog Insulin Pen) NOVOLOG *MODERATE* ALGORI... Q4 SC Last administered on 04/27/16 12:58; Admin Dose 10 UNIT; Start 04/27/16 at 13:00; Status Future Hold Insulin Glargine (Lantus) 15 unit HS SC ; Start 04/27/16 at 21:00; Status Future Hold Insulin Aspart (Novolog Insulin Pen) 7 unit Q4 SC ; Start 04/27/16 at 13:00; Status Future Hold Amikacin Sulfate (Amikacin Iv Per Pharmacy) AMIKACIN PER PHARMACY NOTE XX ; Start 04/27/16 at 13:00 Diagnostic Test (Pha) (Accucheck) 1 ea Q1H XX Last administered on 04/29/16 13 :12; Admin Dose 1 EA; Start 04/27/16 at 14:00 Dextrose (D50w Syringe) 25 ml Q15M PRN IV Till BS 80 mg/dL or above x2; Start 04/27/16 at 14:00 Dextrose (D50w Syringe) 50 ml Q15M PRN IV Till BS 80 mg/dL or above x2; Start 04/27/16 at 14:00 IV Flush 10 ml 10 ml PRN PRN IV IV PROTOCOL; Start 04/27/16 at 17:30 Amikacin Sulfate/ Sodium Chloride (Amikacin/NS) 104 ml @ 104 mls/hr Q36H IVPB Last administered on 04/29/16 03:25; Admin Dose 104 MLS/HR; Start 04/29/16 at 03:00 Miscellaneous Information (*Rx Drug Level Order Reminder*) 1 ONCE ONCE XX ; Start 04/30/16 at 14:00; Stop 04/30/16 at 14:01 INES TORRE MD Apr 29, 2016 14:11
[2016-04-29] MEDS: ACETAMINOPHEN 650MG/20.3ML CUP NGT PRN (18:37)
[2016-04-29] MEDS: LEVALBUTEROL (NEB) 0.63 MG/3 ML AMP HHN PRN (20:23)
[2016-04-30] VITALS (53 sets, daily range): BP systolic 112–158; BP diastolic 64–124; PULSE 107–125; RESP 14–32
[2016-04-30] MEDS: FENTAnyl PATCH 50 MCG/HR TRANSDERM SCH (00:18)
[2016-04-30] MEDS: INSULIN REGULAR, HUMAN 100 UNIT in SOD CHLORIDE 0.9% 99 ML IV SCH ×4 (00:23→15:32)
[2016-04-30] MEDS: ACCUCHECK XX SCH ×24 (01:00→23:00)
[2016-04-30] MEDS: LEVALBUTEROL (NEB) 0.63 MG/3 ML AMP HHN PRN ×4 (01:16→19:17)
[2016-04-30] MEDS: ACETYLCYSTEINE 20% 4 ML VIAL NEB SCH ×4 (01:17→19:17)
[2016-04-30] MEDS: LANSOPRAZOLE 30 MG CAP GTB SCH (05:45)
[2016-04-30] MEDS: clonAZEPAM 0.5 MG TAB GTB SCH ×3 (05:45→21:24)
[2016-04-30 06:12] LABS: POTASSIUM 3.6 mmol/L (3.5-5.1)
[2016-04-30 06:15] LABS: CREATININE 0.52 mg/dl (0.44-1.00)
[2016-04-30 06:16] LABS: CALCIUM 8.6 mg/dl (8.4-10.2); MAGNESIUM 1.8 mg/dl (1.7-2.5); PHOSPHORUS 3.2 mg/dl (2.5-4.9)
[2016-04-30] MEDS: CHLORHEXIDINE GLUCONATE 15 ML UD CUP MM SCH ×2 (08:31→20:32)
[2016-04-30] MEDS: LACTOBACILLUS RHAMNOSUS CAP GTB SCH ×2 (08:31→20:32)
[2016-04-30] MEDS: ACETAMINOPHEN 650MG/20.3ML CUP NGT PRN (08:31)
[2016-04-30] MEDS: NYSTATIN 30 GM POWDER BTL TOP SCH ×2 (08:32→20:33)
[2016-04-30] MEDS: COLLAGENASE 30 GM TUBE TOP SCH (08:32)
[2016-04-30] MEDS: MULTIVITAMINS 5 ML CUP GTB SCH (08:32)
[2016-04-30] MEDS: CEFEPIME 1GM/50 ML (PMX) 50 ML IVPB SCH ×2 (09:20→20:33)
[2016-04-30] MEDS: FERROUS SULFATE 60 MG/ML 5ML CUP GTB SCH ×2 (09:20→20:32)
--- NOTE | 2016-04-30 09:57 | PN ---
Date/Time of Note Date/Time of Note DATE: 04/30/16 TIME: 09:56 Assessment/Plan VTE Prophylaxis VTE Prophylaxis Intervention: other Lines/Catheters IV Catheter Type (from Nrs): PICC Line Central line still needed: Yes Urinary Cath still in place: Yes Reason Cath still needed: skin wounds contaminated by urine Assessment/Plan Chief Complaint/Hosp Course 1) sepsis - continue antibiotics 2) respiratory failure - on ventilator Problems: Subjective 24 Hr Interval Summary Free Text/Dictation Patient eyes open but unable to verbalize because of intubation Exam/Review of Systems Vital Signs Vitals Vital Signs Date Time Temp Pulse Resp B/P Pulse Ox O2 Delivery O2 Flow Rate FiO2 04/30/16 06:00 112 26 131/74 100 Mechanical Ventilator 04/30/16 00:00 98.5 04/29/16 20:28 40 Intake and Output 04/29/16 04/29/16 04/30/16 15:00 23:00 07:00 Intake Total 429 ml 665 ml 462 ml Output Total 715 ml 305 ml 220 ml Balance -286 ml 360 ml 242 ml Exam Constitutional: alert, well developed Head: atraumatic, normocephalic Neck: supple Respiratory: clear to auscultation Cardiovascular: regular rate and rhythm Gastrointestinal: non-tender, soft Extremities: normal pulses Results Result Diagram: 04/29/16 0500 04/30/16 0450 Results 24 hrs Laboratory Tests Test 04/29/16 11:04 04/29/16 13:01 04/29/16 14:45 04/29/16 17:26 Bedside Glucose 162 145 151 189 Test 04/29/16 18:48 04/29/16 19:51 04/29/16 21:01 04/29/16 22:11 Bedside Glucose 199 181 164 174 Test 04/29/16 23:13 04/30/16 00:16 04/30/16 01:18 04/30/16 02:13 Bedside Glucose 164 160 141 147 Test 04/30/16 03:13 04/30/16 04:34 04/30/16 04:50 04/30/16 05:48 Bedside Glucose 134 127 129 Anion Gap 12 Blood Urea Nitrogen 13 Calcium Level 8.6 Carbon Dioxide Level 28 Chloride Level 102 Creatinine 0.52 Glucose Level 129 Magnesium Level 1.8 Phosphorus Level 3.2 Potassium Level 3.6 Sodium Level 138 Test 04/30/16 08:30 Bedside Glucose 144 Medications Medications Current Medications Chlorhexidine Gluconate (Peridex) 15 ml Q12 MM Last administered on 04/30/16 08:31; Admin Dose 15 ML; Start 04/21/16 at 21:00 Ferrous Sulfate (Feosol Liquid Cup) 330 mg BID GTB Last administered on 09:20; Admin Dose 330 MG; Start 04/21/16 at 21:00 Lactobacillus Acidophilus/ Rhamnosus (Culturelle) 1 cap BID GTB Last administered on 04/30/16 08:31; Admin Dose 1 CAP; Start 04/21/16 at 21:00 Metoclopramide HCl (Reglan) 10 mg Q6 PRN GTB NAUSEA AND/OR VOMITING; Start 03/26 at 17:00 Multivitamins (Thera-Plus) 5 ml DAILY GTB Last administered on 04/30/16 08:32 ; Admin Dose 5 ML; Start 04/22/16 at 09:00 Miscellaneous Information 1 ea NOTE XX ; Start 04/21/16 at 17:30 Glucose (Glutose) 15 gm Q15M PRN PO DECREASED GLUCOSE; Start 04/21/16 at 17:30 Glucose (Glutose) 22.5 gm Q15M PRN PO DECREASED GLUCOSE; Start 04/21/16 at 17: 30 Dextrose (D50w Syringe) 25 ml Q15M PRN IV DECREASED GLUCOSE; Start 04/21/16 at 17:30 Dextrose (D50w Syringe) 50 ml Q15M PRN IV DECREASED GLUCOSE; Start 04/21/16 at 17:30 Glucagon (Glucagen) 1 mg Q15M PRN IM DECREASED GLUCOSE; Start 04/21/16 at 17:30 Glucose (Glutose) 15 gm Q15M PRN BUCCAL DECREASED GLUCOSE; Start 04/21/16 at 17 :30 Collagenase (Santyl) 1 applic DAILY TOP Last administered on 04/30/16 08:32; Admin Dose 1 APPLIC; Start 04/22/16 at 16:30 Nystatin 1 applic 1 applic BID TOP Last administered on 04/30/16 08:32; Admin Dose 1 APPLIC; Start 04/22/16 at 21:00 Cefepime HCl (Maxipime 1gm/50 ml (Pmx)) 50 ml @ 100 mls/hr Q12 IVPB Last administered on 04/30/16 09:20; Admin Dose 100 MLS/HR; Start 04/23/16 at 21:00 Lansoprazole (Prevacid) 30 mg DAILY@06 GTB Last administered on 04/30/16 05:45 ; Admin Dose 30 MG; Start 04/25/16 at 06:00 Fentanyl (Duragesic 50 Mcg/Hr Patch) 1 patch Q72H TRANSDERM Last administered on 04/30/16 00:18; Admin Dose 1 PATCH; Start 04/26/16 at 22:30 Lorazepam (Ativan) 1 mg Q2HWA PRN PEG Anxiety Last administered on 04/27/16 23 :40; Admin Dose 1 MG; Start 04/26/16 at 22:30 Clonazepam (Klonopin) 0.5 mg Q8 GTB Last administered on 04/30/16 05:45; Admin Dose 0.5 MG; Start 04/27/16 at 06:00 Acetaminophen (Tylenol Liquid) 650 mg Q6H PRN NGT PAIN AND OR ELEVATED TEMP Last administered on 04/30/16 08:31; Admin Dose 650 MG; Start 04/27/16 at 04:30 Insulin Aspart (Novolog Insulin Pen) NOVOLOG *MODERATE* ALGORI... Q4 SC Last administered on 04/27/16 12:58; Admin Dose 10 UNIT; Start 04/27/16 at 13:00; Status Future Hold Insulin Glargine (Lantus) 15 unit HS SC ; Start 04/27/16 at 21:00; Status Future Hold Insulin Aspart (Novolog Insulin Pen) 7 unit Q4 SC ; Start 04/27/16 at 13:00; Status Future Hold Amikacin Sulfate (Amikacin Iv Per Pharmacy) AMIKACIN PER PHARMACY NOTE XX ; Start 04/27/16 at 13:00 Diagnostic Test (Pha) (Accucheck) 1 ea Q1H XX Last administered on 04/30/16 08 :30; Admin Dose 1 EA; Start 04/27/16 at 14:00 Dextrose (D50w Syringe) 25 ml Q15M PRN IV Till BS 80 mg/dL or above x2; Start 04/27/16 at 14:00 Dextrose (D50w Syringe) 50 ml Q15M PRN IV Till BS 80 mg/dL or above x2; Start 04/27/16 at 14:00 IV Flush 10 ml 10 ml PRN PRN IV IV PROTOCOL; Start 04/27/16 at 17:30 Amikacin Sulfate/ Sodium Chloride (Amikacin/NS) 104 ml @ 104 mls/hr Q36H IVPB Last administered on 04/29/16t 03:25; Admin Dose 104 MLS/HR; Start 04/29/16 at 03:00 Miscellaneous Information (*Rx Drug Level Order Reminder*) 1 ONCE ONCE XX ; Start 04/30/16 at 14:00; Stop 04/30/16 at 14:01 MICHOACANO HOBBS Apr 30, 2016 09:57
--- NOTE | 2016-04-30 13:34 | PN ---
DATE: 04/30/2016 PULMONARY FOLLOWUP Chart reviewed. Events noted. Patient remains on ventilator, saturating 99%. The patient is still on insulin infusion for blood pressure control. PHYSICAL EXAMINATION: VITAL SIGNS: Blood pressure 146/82, pulse 125, respirations 22, temperature afebrile. HEENT: Pupils are equal and reactive to light. NECK: Supple, no JVD noted, no cervical lymphadenopathy noted, no carotid bruits heard. LUNGS: Few scattered rhonchi. CARDIOVASCULAR: S1, S2 normal. ABDOMEN: Soft, nontender. No organomegaly or masses noted. EXTREMITIES: No clubbing, cyanosis, or edema noted. NEUROLOGICAL: Encephalopathic. LABORATORY: Sodium 138, potassium 3.6, chloride 102, CO2 28, BUN 13, creatinine 0.52, glucose 129. IMPRESSION: 1. Ventilator-dependent respiratory failure, hypoxemic. 2. Tracheostomy dependent. 3. Probable pneumonia. 4. Anemia, status post esophagogastroduodenoscopy and colonoscopy showing cecal and hepatic flexure ulcers. 5. Chronic encephalopathy. 6. History of diabetes mellitus. 7. Hypertension. 8. History of craniotomy. 9. History of congestive heart failure. 10. History of hypertension. 11. Anemia. RECOMMENDATIONS: 1. Continue vent support for now. 2. Followup CBC. 3. Gastrointestinal followup. 4. Continue insulin. 5. PPI. 6. Check pathology of the biopsy. 7. Once patient is off of insulin drip and hematocrit is stable, patient can be considered for mix sfer to [facility] for further care. Dictated By: GUME ELDRIDGE MD, MA/DENNIS Conf#: [id number] DID#: [id number] CC: JOSR LORENZO MD;*EndCC*
[2016-04-30 14:08] LABS: HEMOGLOBIN 8.1 g/dl (12.0-16.0); MEAN CORPUSCULAR HEMOGLOBIN 30.9 pg (29.0-33.0); MEAN CORPUSCULAR HGB CONC 32.6 g/dl (32.0-37.0); MEAN CORPUSCULAR VOLUME 94.9 fl (82.0-101.0); PLATELET COUNT 228 10^3/UL (140-440); RED BLOOD COUNT 2.63 10^6/ul (4.20-5.40); RED CELL DISTRIBUTION WIDTH 19.2 % (11.5-14.5); UNCORRECTED WBC 16.3 10^3/ul (4.8-10.8); WHITE BLOOD COUNT 16.3 10^3/ul (4.8-10.8)
[2016-04-30 14:17] LABS: CONDITION 1; LH ANALYZER COMMENTS 1; SUSPECT 1
[2016-04-30 14:38] LABS: EOSINOPHILS # 1.3 10^3/ul (0.0-0.5); LYMPHOCYTES # 3.3 10^3/ul (0.8-2.9); MONOCYTE # 1.3 10^3/ul (0.3-0.9); NEUTROPHIL # 9.6 10^3/ul (1.6-7.5)
[2016-04-30] MEDS: AMIKACIN 1,000 MG in SOD CHLORIDE 0.9% 100 ML IVPB SCH (14:46)
--- NOTE | 2016-04-30 19:20 | PN ---
DATE: 04/30/2016 SUBJECTIVE: No acute changes. The patient is lying comfortably in bed, afebrile. She is tachycard ic. T-max 100.54 yesterday, T-current 98.6; pulse 117; respirations 25; blood pressure 148/78; satu ration 98% on the vent. WBC ____ , H and H 8.1 and 25, platelets 228, neutrophils 59, bands 5, lymp hs 20, BUN 13, creatinine 0.52. PATHOLOGY: Gastric biopsy revealed no evidence of malignancy. INDWELLINGS: Trach, PEG, Rivera, PICC line placed on April 27. ANTIMICROBIALS The patient is on: 1. Amikacin. 2. Cefepime. PHYSICAL EXAMINATION GENERAL: A chronically ill-appearing, elderly woman who is lying comfortably in bed. HEENT: Head atraumatic, normocephalic. Sclerae are anicteric. Buccal mucosa dry. NECK: Supple. CHEST: Rise symmetrical. Breath sounds diminished to bases. HEART: S1, S2. ABDOMEN: Soft, bowel tones present. EXTREMITIES: Without cyanosis. ASSESSMENT 1. Systemic inflammatory response syndrome, with leukocytosis - slowly resolving. 2. Status post sepsis with shock on admission. 3. Healthcare-associated pneumonia. 4. Anemia, status post esophagogastroduodenoscopy and colonoscopy. Pathology revealed no malignanc y. 5. Diabetes. 6. Dysphagia. 7. History of craniotomy. PLAN: The patient remains hemodynamically stable. White blood cell count tracing down. We will co ntinue her on current antimicrobials. Dictated By: JEFF [employer] PL[employer] for [employer] REAL/DENNIS Conf#: [id number] DID#: [id number]
--- NOTE | 2016-04-30 19:39 | CONS ---
Date/Time of Note Date/Time of Note DATE: 04/30/16 TIME: 19:38 Assessment/Plan Assessment/Plan Additional Assessment/Plan Assessment/Plan Assessment/Plan Additional Assessment/Plan Additional Assessment/Plan Assessment/Plan Additional Assessment/Plan ASSESSMENT AND PLAN: 1. Anemia, gastritis,gastric ulcer,ischemic ulcer in colon 2. Diabetes mellitus. 3. Cerebrovascular accident. 4. Vent dependent respiratory failure.transferred to ICU for worsening of her condition. 5. Paroxysmal atrial fibrillation. 6. Dysphagia status post G-tube. 7. Hypertension. 8. Renal insufficiency. 9. Multiple wounds. 10. Cardiomyopathy. 11.intermittent vomiting for months as per daughter 12.sepsis,afebrile now,and wbc coming down Plan antibiotics as per ID resume feeding PPI continue PPI Consultation Date/Type/Reason Admit Date/Time Apr 21, 2016 at 10:39 Type of Consultation: pulmonary 24 HR Interval Summary Constitutional: improved, no complaints Exam/Review of Systems Vital Signs Vitals Vital Signs Date Time Temp Pulse Resp B/P Pulse Ox O2 Delivery O2 Flow Rate FiO2 04/30/16 19:24 109 29 100 30 04/30/16 17:30 136/76 Mechanical Ventilator 04/30/16 16:00 98.1 Intake and Output 04/29/16 04/29/16 04/30/16 15:00 23:00 07:00 Intake Total 429 ml 665 ml 522 ml Output Total 715 ml 305 ml 260 ml Balance -286 ml 360 ml 262 ml Exam Constitutional: alert, oriented, well developed Psych: nl mood/affect, no complaints Head: atraumatic, normocephalic Eyes: EOMI, PERRL, nl conjunctiva, nl lids, nl sclera ENMT: nl external ears & nose, nl lips & teeth, nl nasal mucosa & septum Neck: non-tender, supple Respiratory: clear to auscultation, normal air movement Cardiovascular: nl pulses, regular rate and rhythm Gastrointestinal: nl liver, spleen, non-tender, soft Musculoskeletal: nl extremities to inspection, nl gait and stance Extremities: normal pulses Neurological: JUDICIAL REPORTER II-XII intact, nl mental status, nl speech, nl strength Skin: nl turgor, No rash or lesions Lymph: nl lymph nodes Results Result Diagram: 04/30/16 1359 04/30/16 0450 Results 24 hrs Laboratory Tests Test 04/29/16 19:51 04/29/16 21:01 04/29/16 22:11 04/29/16 23:13 Bedside Glucose 181 164 174 164 Test 04/30/16 00:16 04/30/16 01:18 04/30/16 02:13 04/30/16 03:13 Bedside Glucose 160 141 147 134 Test 04/30/16 04:34 04/30/16 04:50 04/30/16 05:48 04/30/16 08:30 Bedside Glucose 127 129 144 Anion Gap 12 Blood Urea Nitrogen 13 Calcium Level 8.6 Carbon Dioxide Level 28 Chloride Level 102 Creatinine 0.52 Glucose Level 129 Magnesium Level 1.8 Phosphorus Level 3.2 Potassium Level 3.6 Sodium Level 138 Test 04/30/16 10:58 04/30/16 11:43 04/30/16 12:43 04/30/16 13:59 Bedside Glucose 192 188 177 Band Neutrophils % 5.0 Basophils # Basophils % Blood Morphology Comment Differential Comment MANUAL DIFF Eosinophils # 1.3 H Eosinophils % 8.0 H Hematocrit 25.0 L Hemoglobin 8.1 L Lymphocytes # 3.3 H Lymphocytes % 20.0 Mean Corpuscular Hemoglobin 30.9 Mean Corpuscular Hemoglobin Concent 32.6 Mean Corpuscular Volume 94.9 Mean Platelet Volume 9.0 Monocytes # 1.3 H Monocytes % 8.0 Neutrophils # 9.6 H Neutrophils % 59.0 Nucleated Red Blood Cells # Nucleated Red Blood Cells % 3.0 H Platelet Count 228 Red Blood Count 2.63 L Red Cell Distribution Width 19.2 H White Blood Count 16.3 H Test 04/30/16 14:00 04/30/16 14:48 04/30/16 15:29 04/30/16 16:57 Bedside Glucose 174 181 188 175 Test 04/30/16 17:37 04/30/16 18:43 04/30/16 19:25 Bedside Glucose 167 171 188 Medications Medications Current Medications Chlorhexidine Gluconate (Peridex) 15 ml Q12 MM Last administered on 04/30/16 08:31; Admin Dose 15 ML; Start 04/21/16 at 21:00 Ferrous Sulfate (Feosol Liquid Cup) 330 mg BID GTB Last administered on 09:20; Admin Dose 330 MG; Start 04/21/16 at 21:00 Lactobacillus Acidophilus/ Rhamnosus (Culturelle) 1 cap BID GTB Last administered on 04/30/16 08:31; Admin Dose 1 CAP; Start 04/21/16 at 21:00 Metoclopramide HCl (Reglan) 10 mg Q6 PRN GTB NAUSEA AND/OR VOMITING; Start 03/26 at 17:00 Multivitamins (Thera-Plus) 5 ml DAILY GTB Last administered on 04/30/16 08:32 ; Admin Dose 5 ML; Start 04/22/16 at 09:00 Miscellaneous Information 1 ea NOTE XX ; Start 04/21/16 at 17:30 Glucose (Glutose) 15 gm Q15M PRN PO DECREASED GLUCOSE; Start 04/21/16 at 17:30 Glucose (Glutose) 22.5 gm Q15M PRN PO DECREASED GLUCOSE; Start 04/21/16 at 17: 30 Dextrose (D50w Syringe) 25 ml Q15M PRN IV DECREASED GLUCOSE; Start 04/21/16 at 17:30 Dextrose (D50w Syringe) 50 ml Q15M PRN IV DECREASED GLUCOSE; Start 04/21/16 at 17:30 Glucagon (Glucagen) 1 mg Q15M PRN IM DECREASED GLUCOSE; Start 04/21/16 at 17:30 Glucose (Glutose) 15 gm Q15M PRN BUCCAL DECREASED GLUCOSE; Start 04/21/16 at 17 :30 Collagenase (Santyl) 1 applic DAILY TOP Last administered on 04/30/16 08:32; Admin Dose 1 APPLIC; Start 04/22/16 at 16:30 Nystatin 1 applic 1 applic BID TOP Last administered on 04/30/16 08:32; Admin Dose 1 APPLIC; Start 04/22/16 at 21:00 Cefepime HCl (Maxipime 1gm/50 ml (Pmx)) 50 ml @ 100 mls/hr Q12 IVPB Last administered on 04/30/16 09:20; Admin Dose 100 MLS/HR; Start 04/23/16 at 21:00 Lansoprazole (Prevacid) 30 mg DAILY@06 GTB Last administered on 04/30/16 05:45 ; Admin Dose 30 MG; Start 04/25/16 at 06:00 Fentanyl (Duragesic 50 Mcg/Hr Patch) 1 patch Q72H TRANSDERM Last administered on 1/21/17at 00:18; Admin Dose 1 PATCH; Start 04/26/16 at 22:30 Lorazepam (Ativan) 1 mg Q2HWA PRN PEG Anxiety Last administered on 04/27/16 23 :40; Admin Dose 1 MG; Start 04/26/16 at 22:30 Clonazepam (Klonopin) 0.5 mg Q8 GTB Last administered on 04/30/16 14:46; Admin Dose 0.5 MG; Start 04/27/16 at 06:00 Acetaminophen (Tylenol Liquid) 650 mg Q6H PRN NGT PAIN AND OR ELEVATED TEMP Last administered on 04/30/16 08:31; Admin Dose 650 MG; Start 04/27/16 at 04:30 Insulin Aspart (Novolog Insulin Pen) NOVOLOG *MODERATE* ALGORI... Q4 SC Last administered on 04/27/16 12:58; Admin Dose 10 UNIT; Start 04/27/16 at 13:00; Status Future Hold Insulin Glargine (Lantus) 15 unit HS SC ; Start 04/27/16 at 21:00; Status Future Hold Insulin Aspart (Novolog Insulin Pen) 7 unit Q4 SC ; Start 04/27/16 at 13:00; Status Future Hold Amikacin Sulfate (Amikacin Iv Per Pharmacy) AMIKACIN PER PHARMACY NOTE XX ; Start 04/27/16 at 13:00 Diagnostic Test (Pha) (Accucheck) 1 ea Q1H XX Last administered on 04/30/16 18 :44; Admin Dose 1 EA; Start 04/27/16 at 14:00 Dextrose (D50w Syringe) 25 ml Q15M PRN IV Till BS 80 mg/dL or above x2; Start 04/27/16 at 14:00 Dextrose (D50w Syringe) 50 ml Q15M PRN IV Till BS 80 mg/dL or above x2; Start 04/27/16 at 14:00 IV Flush 10 ml 10 ml PRN PRN IV IV PROTOCOL; Start 04/27/16 at 17:30 Amikacin Sulfate/ Sodium Chloride (Amikacin/NS) 104 ml @ 104 mls/hr Q36H IVPB Last administered on 04/30/16 14:46; Admin Dose 104 MLS/HR; Start 04/29/16 at 03:00 INES TORRE MD Apr 30, 2016 19:39
[2016-05-01] VITALS (49 sets, daily range): BP systolic 95–162; BP diastolic 28–92; PULSE 110–123; RESP 17–31
[2016-05-01] MEDS: ACCUCHECK XX SCH ×24 (01:00→23:26)
[2016-05-01] MEDS: ACETYLCYSTEINE 20% 4 ML VIAL NEB SCH ×4 (01:24→20:01)
[2016-05-01] MEDS: LEVALBUTEROL (NEB) 0.63 MG/3 ML AMP HHN PRN ×4 (01:24→20:01)
[2016-05-01 05:36] LABS: POTASSIUM 4.2 mmol/L (3.5-5.1)
[2016-05-01 05:38] LABS: CREATININE 0.53 mg/dl (0.44-1.00)
[2016-05-01 05:39] LABS: CALCIUM 8.6 mg/dl (8.4-10.2)
[2016-05-01] MEDS: clonAZEPAM 0.5 MG TAB GTB SCH ×3 (05:56→22:20)
[2016-05-01] MEDS: LANSOPRAZOLE 30 MG CAP GTB SCH (05:57)
[2016-05-01] MEDS: INSULIN REGULAR, HUMAN 100 UNIT in SOD CHLORIDE 0.9% 99 ML IV SCH ×4 (06:03→20:23)
[2016-05-01 06:35] LABS: HEMOGLOBIN 8.3 g/dl (12.0-16.0); MEAN CORPUSCULAR HEMOGLOBIN 31.3 pg (29.0-33.0); MEAN CORPUSCULAR HGB CONC 33.1 g/dl (32.0-37.0); MEAN CORPUSCULAR VOLUME 94.6 fl (82.0-101.0); MEAN PLATELET VOLUME 9.9 fl (7.4-10.4); PLATELET COUNT 246 10^3/UL (140-440); RED BLOOD COUNT 2.65 10^6/ul (4.20-5.40); RED CELL DISTRIBUTION WIDTH 19.3 % (11.5-14.5); UNCORRECTED WBC 17.5 10^3/ul (4.8-10.8); WHITE BLOOD COUNT 17.5 10^3/ul (4.8-10.8)
[2016-05-01 06:40] LABS: CONDITION 1; LH ANALYZER COMMENTS 1
[2016-05-01 08:24] LABS: EOSINOPHILS # 1.2 10^3/ul (0.0-0.5); LYMPHOCYTES # 4.2 10^3/ul (0.8-2.9); NEUTROPHIL # 11.6 10^3/ul (1.6-7.5)
[2016-05-01 08:25] LABS: ANISOCYTOSIS 2+
[2016-05-01] MEDS: MULTIVITAMINS 5 ML CUP GTB SCH (08:25)
[2016-05-01] MEDS: NYSTATIN 30 GM POWDER BTL TOP SCH ×2 (08:25→20:22)
[2016-05-01] MEDS: FERROUS SULFATE 60 MG/ML 5ML CUP GTB SCH ×2 (08:25→20:22)
[2016-05-01] MEDS: CHLORHEXIDINE GLUCONATE 15 ML UD CUP MM SCH ×2 (08:25→20:22)
[2016-05-01] MEDS: LACTOBACILLUS RHAMNOSUS CAP GTB SCH ×2 (08:25→20:22)
[2016-05-01] MEDS: COLLAGENASE 30 GM TUBE TOP SCH (08:25)
[2016-05-01] MEDS: CEFEPIME 1GM/50 ML (PMX) 50 ML IVPB SCH ×2 (08:33→20:22)
--- NOTE | 2016-05-01 11:15 | PN ---
Date/Time of Note Date/Time of Note DATE: 05/01/16 TIME: 11:15 Assessment/Plan VTE Prophylaxis VTE Prophylaxis Intervention: other Lines/Catheters IV Catheter Type (from Nrs): PICC Line Central line still needed: Yes Urinary Cath still in place: Yes Reason Cath still needed: skin wounds contaminated by urine Assessment/Plan Chief Complaint/Hosp Course 1) sepsis - continue antibiotics 2) respiratory failure - on ventilator 3) diabetes - on insulin drip currently Problems: Subjective 24 Hr Interval Summary Free Text/Dictation Patient on ventilator, resting comfortably Exam/Review of Systems Vital Signs Vitals Vital Signs Date Time Temp Pulse Resp B/P Pulse Ox O2 Delivery O2 Flow Rate FiO2 05/01/16 08:00 30 05/01/16 08:00 120 05/01/16 06:00 27 130/67 Mechanical Ventilator 05/01/16 05:08 100 05/01/16 04:00 99.6 Intake and Output 04/30/16 04/30/16 05/01/16 15:00 23:00 07:00 Intake Total 703 ml 785 ml 472 ml Output Total 315 ml 260 ml 235 ml Balance 388 ml 525 ml 237 ml Exam Constitutional: well developed Head: atraumatic, normocephalic Neck: supple Respiratory: diminished breath sounds Cardiovascular: regular rate and rhythm Gastrointestinal: non-tender, soft Extremities: normal pulses Results Result Diagram: 05/01/160 05/01/16 0450 Results 24 hrs Laboratory Tests Test 04/30/16 11:43 04/30/16 12:43 04/30/16 13:59 04/30/16 14:00 Bedside Glucose 188 177 174 Band Neutrophils % 5.0 Basophils # Basophils % Blood Morphology Comment Differential Comment MANUAL DIFF Eosinophils # 1.3 H Eosinophils % 8.0 H Hematocrit 25.0 L Hemoglobin 8.1 L Lymphocytes # 3.3 H Lymphocytes % 20.0 Mean Corpuscular Hemoglobin 30.9 Mean Corpuscular Hemoglobin Concent 32.6 Mean Corpuscular Volume 94.9 Mean Platelet Volume 9.0 Monocytes # 1.3 H Monocytes % 8.0 Neutrophils # 9.6 H Neutrophils % 59.0 Nucleated Red Blood Cells # Nucleated Red Blood Cells % 3.0 H Platelet Count 228 Red Blood Count 2.63 L Red Cell Distribution Width 19.2 H White Blood Count 16.3 H Test 04/30/16 14:48 04/30/16 15:29 04/30/16 16:57 04/30/16 17:37 Bedside Glucose 181 188 175 167 Test 04/30/16 18:43 04/30/16 19:25 04/30/16 21:16 04/30/16 22:16 Bedside Glucose 171 188 160 162 Test 04/30/16 23:14 05/01/16 00:04 05/01/16 01:01 05/01/16 02:07 Bedside Glucose 159 152 141 150 Test 05/01/16 03:06 05/01/16 04:50 05/01/16 05:13 05/01/16 06:53 Bedside Glucose 151 137 138 Anion Gap 12 Anisocytosis 2+ Band Neutrophils % 3.0 Blood Morphology Comment Blood Urea Nitrogen 16 Calcium Level 8.6 Carbon Dioxide Level 28 Chloride Level 102 Creatinine 0.53 Eosinophils # 1.2 H Eosinophils % 7.0 Glucose Level 130 Hematocrit 25.0 L Hemoglobin 8.3 L Lymphocytes # 4.2 H Lymphocytes % 24.0 Mean Corpuscular Hemoglobin 31.3 Mean Corpuscular Hemoglobin Concent 33.1 Mean Corpuscular Volume 94.6 Mean Platelet Volume 9.9 Neutrophils # 11.6 H Neutrophils % 66.0 Nucleated Red Blood Cells # Nucleated Red Blood Cells % 1.0 H Platelet Count 246 Potassium Level 4.2 Red Blood Count 2.65 L Red Cell Distribution Width 19.3 H Sodium Level 138 White Blood Count 17.5 H Test 05/01/16 08:35 05/01/16 10:25 Bedside Glucose 153 182 Medications Medications Current Medications Chlorhexidine Gluconate (Peridex) 15 ml Q12 MM Last administered on 05/01/16 08:25; Admin Dose 15 ML; Start 04/21/16 at 21:00 Ferrous Sulfate (Feosol Liquid Cup) 330 mg BID GTB Last administered on 08:25; Admin Dose 330 MG; Start 04/21/16 at 21:00 Lactobacillus Acidophilus/ Rhamnosus (Culturelle) 1 cap BID GTB Last administered on 05/01/16 08:25; Admin Dose 1 CAP; Start 04/21/16 at 21:00 Metoclopramide HCl (Reglan) 10 mg Q6 PRN GTB NAUSEA AND/OR VOMITING; Start 03/26 at 17:00 Multivitamins (Thera-Plus) 5 ml DAILY GTB Last administered on 05/01/16 08:25 ; Admin Dose 5 ML; Start 04/22/16 at 09:00 Miscellaneous Information 1 ea NOTE XX ; Start 04/21/16 at 17:30 Glucose (Glutose) 15 gm Q15M PRN PO DECREASED GLUCOSE; Start 04/21/16 at 17:30 Glucose (Glutose) 22.5 gm Q15M PRN PO DECREASED GLUCOSE; Start 04/21/16 at 17: 30 Dextrose (D50w Syringe) 25 ml Q15M PRN IV DECREASED GLUCOSE; Start 04/21/16 at 17:30 Dextrose (D50w Syringe) 50 ml Q15M PRN IV DECREASED GLUCOSE; Start 04/21/16 at 17:30 Glucagon (Glucagen) 1 mg Q15M PRN IM DECREASED GLUCOSE; Start 04/21/16 at 17:30 Glucose (Glutose) 15 gm Q15M PRN BUCCAL DECREASED GLUCOSE; Start 04/21/16 at 17 :30 Collagenase (Santyl) 1 applic DAILY TOP Last administered on 05/01/16 08:25; Admin Dose 1 APPLIC; Start 04/22/16 at 16:30 Nystatin 1 applic 1 applic BID TOP Last administered on 05/01/16 08:25; Admin Dose 1 APPLIC; Start 04/22/16 at 21:00 Cefepime HCl (Maxipime 1gm/50 ml (Pmx)) 50 ml @ 100 mls/hr Q12 IVPB Last administered on 05/01/16 08:33; Admin Dose 100 MLS/HR; Start 04/23/16 at 21:00 Lansoprazole (Prevacid) 30 mg DAILY@06 GTB Last administered on 05/01/16 05:57 ; Admin Dose 30 MG; Start 04/25/16 at 06:00 Fentanyl (Duragesic 50 Mcg/Hr Patch) 1 patch Q72H TRANSDERM Last administered on 04/30/16 00:18; Admin Dose 1 PATCH; Start 04/26/16 at 22:30 Lorazepam (Ativan) 1 mg Q2HWA PRN PEG Anxiety Last administered on 04/27/16 23 :40; Admin Dose 1 MG; Start 04/26/16 at 22:30 Clonazepam (Klonopin) 0.5 mg Q8 GTB Last administered on 05/01/16 05:56; Admin Dose 0.5 MG; Start 04/27/16 at 06:00 Acetaminophen (Tylenol Liquid) 650 mg Q6H PRN NGT PAIN AND OR ELEVATED TEMP Last administered on 04/30/16 08:31; Admin Dose 650 MG; Start 04/27/16 at 04:30 Insulin Aspart (Novolog Insulin Pen) NOVOLOG *MODERATE* ALGORI... Q4 SC Last administered on 04/27/16 12:58; Admin Dose 10 UNIT; Start 04/27/16 at 13:00; Status Future Hold Insulin Glargine (Lantus) 15 unit HS SC ; Start 04/27/16 at 21:00; Status Future Hold Insulin Aspart (Novolog Insulin Pen) 7 unit Q4 SC ; Start 04/27/16 at 13:00; Status Future Hold Amikacin Sulfate (Amikacin Iv Per Pharmacy) AMIKACIN PER PHARMACY NOTE XX ; Start 04/27/16 at 13:00 Diagnostic Test (Pha) (Accucheck) 1 ea Q1H XX Last administered on 05/01/16 10 :26; Admin Dose 1 EA; Start 04/27/16 at 14:00 Dextrose (D50w Syringe) 25 ml Q15M PRN IV Till BS 80 mg/dL or above x2; Start 04/27/16 at 14:00 Dextrose (D50w Syringe) 50 ml Q15M PRN IV Till BS 80 mg/dL or above x2; Start 04/27/16 at 14:00 IV Flush 10 ml 10 ml PRN PRN IV IV PROTOCOL; Start 04/27/16 at 17:30 Amikacin Sulfate/ Sodium Chloride (Amikacin/NS) 104 ml @ 104 mls/hr Q36H IVPB Last administered on 04/30/16 14:46; Admin Dose 104 MLS/HR; Start 04/29/16 at 03:00 MICHOACANO HOBBS May 01, 2016 11:15
--- NOTE | 2016-05-01 14:44 | CONS ---
Date/Time of Note Date/Time of Note DATE: 05/01/16 TIME: 14:43 Assessment/Plan Assessment/Plan Additional Assessment/Plan ASSESSMENT AND PLAN: 1. Anemia, gastritis,gastric ulcer,ischemic ulcer in colon 2. Diabetes mellitus. 3. Cerebrovascular accident. 4. Vent dependent respiratory failure.transferred to ICU for worsening of her condition. 5. Paroxysmal atrial fibrillation. 6. Dysphagia status post G-tube. 7. Hypertension. 8. Renal insufficiency. 9. Multiple wounds. 10. Cardiomyopathy. 11.intermittent vomiting for months as per daughter 12.sepsis,afebrile now,and wbc coming down Plan antibiotics as per ID resume feeding PPI continue PPI Consultation Date/Type/Reason Admit Date/Time Apr 21, 2016 at 10:39 Type of Consultation: pulmonary 24 HR Interval Summary Constitutional: improved, no complaints Exam/Review of Systems Vital Signs Vitals Vital Signs Date Time Temp Pulse Resp B/P Pulse Ox O2 Delivery O2 Flow Rate FiO2 05/01/16 12:30 120 126/72 97 05/01/16 12:00 98.9 22 Mechanical Ventilator 05/01/16 11:10 30 Intake and Output 04/30/16 04/30/16 05/01/16 15:00 23:00 07:00 Intake Total 703 ml 785 ml 532 ml Output Total 315 ml 260 ml 300 ml Balance 388 ml 525 ml 232 ml Exam Constitutional: alert, oriented, well developed Psych: nl mood/affect, no complaints Head: atraumatic, normocephalic Eyes: EOMI, PERRL, nl conjunctiva, nl lids, nl sclera ENMT: nl external ears & nose, nl lips & teeth, nl nasal mucosa & septum Neck: non-tender, supple Respiratory: clear to auscultation, normal air movement Cardiovascular: nl pulses, regular rate and rhythm Gastrointestinal: nl liver, spleen, non-tender, soft Musculoskeletal: nl extremities to inspection, nl gait and stance Extremities: normal pulses Neurological: CUSTOMER QUALITY ENGINEER II-XII intact, nl mental status, nl speech, nl strength Skin: nl turgor, No rash or lesions Lymph: nl lymph nodes Results Result Diagram: 05/01/16 0450 05/01/16 0450 Results 24 hrs Laboratory Tests Test 04/30/16 14:48 04/30/16 15:29 04/30/16 16:57 04/30/16 17:37 Bedside Glucose 181 188 175 167 Test 04/30/16 18:43 04/30/16 19:25 04/30/16 21:16 04/30/16 22:16 Bedside Glucose 171 188 160 162 Test 04/30/16 23:14 05/01/16 00:04 05/01/16 01:01 05/01/16 02:07 Bedside Glucose 159 152 141 150 Test 05/01/16 03:06 05/01/16 04:50 05/01/16 05:13 05/01/16 06:53 Bedside Glucose 151 137 138 Anion Gap 12 Anisocytosis 2+ Band Neutrophils % 3.0 Blood Morphology Comment Blood Urea Nitrogen 16 Calcium Level 8.6 Carbon Dioxide Level 28 Chloride Level 102 Creatinine 0.53 Eosinophils # 1.2 H Eosinophils % 7.0 Glucose Level 130 Hematocrit 25.0 L Hemoglobin 8.3 L Lymphocytes # 4.2 H Lymphocytes % 24.0 Mean Corpuscular Hemoglobin 31.3 Mean Corpuscular Hemoglobin Concent 33.1 Mean Corpuscular Volume 94.6 Mean Platelet Volume 9.9 Neutrophils # 11.6 H Neutrophils % 66.0 Nucleated Red Blood Cells # Nucleated Red Blood Cells % 1.0 H Platelet Count 246 Potassium Level 4.2 Red Blood Count 2.65 L Red Cell Distribution Width 19.3 H Sodium Level 138 White Blood Count 17.5 H Test 05/01/16 08:35 05/01/16 10:25 05/01/16 11:52 05/01/16 12:30 Bedside Glucose 153 182 187 169 Test 05/01/16 14:34 Bedside Glucose 168 Medications Medications Current Medications Chlorhexidine Gluconate (Peridex) 15 ml Q12 MM Last administered on 05/01/16 08:25; Admin Dose 15 ML; Start 04/21/16 at 21:00 Ferrous Sulfate (Feosol Liquid Cup) 330 mg BID GTB Last administered on 08:25; Admin Dose 330 MG; Start 04/21/16 at 21:00 Lactobacillus Acidophilus/ Rhamnosus (Culturelle) 1 cap BID GTB Last administered on 05/01/16 08:25; Admin Dose 1 CAP; Start 04/21/16 at 21:00 Metoclopramide HCl (Reglan) 10 mg Q6 PRN GTB NAUSEA AND/OR VOMITING; Start 03/26 at 17:00 Multivitamins (Thera-Plus) 5 ml DAILY GTB Last administered on 05/01/16 08:25 ; Admin Dose 5 ML; Start 04/22/16 at 09:00 Miscellaneous Information 1 ea NOTE XX ; Start 04/21/16 at 17:30 Glucose (Glutose) 15 gm Q15M PRN PO DECREASED GLUCOSE; Start 04/21/16 at 17:30 Glucose (Glutose) 22.5 gm Q15M PRN PO DECREASED GLUCOSE; Start 04/21/16 at 17: 30 Dextrose (D50w Syringe) 25 ml Q15M PRN IV DECREASED GLUCOSE; Start 04/21/16 at 17:30 Dextrose (D50w Syringe) 50 ml Q15M PRN IV DECREASED GLUCOSE; Start 04/21/16 at 17:30 Glucagon (Glucagen) 1 mg Q15M PRN IM DECREASED GLUCOSE; Start 04/21/16 at 17:30 Glucose (Glutose) 15 gm Q15M PRN BUCCAL DECREASED GLUCOSE; Start 04/21/16 at 17 :30 Collagenase (Santyl) 1 applic DAILY TOP Last administered on 05/01/16 08:25; Admin Dose 1 APPLIC; Start 04/22/16 at 16:30 Nystatin 1 applic 1 applic BID TOP Last administered on 05/01/16 08:25; Admin Dose 1 APPLIC; Start 04/22/16 at 21:00 Cefepime HCl (Maxipime 1gm/50 ml (Pmx)) 50 ml @ 100 mls/hr Q12 IVPB Last administered on 05/01/16 08:33; Admin Dose 100 MLS/HR; Start 04/23/16 at 21:00 Lansoprazole (Prevacid) 30 mg DAILY@06 GTB Last administered on 05/01/16 05:57 ; Admin Dose 30 MG; Start 04/25/16 at 06:00 Fentanyl (Duragesic 50 Mcg/Hr Patch) 1 patch Q72H TRANSDERM Last administered on 04/30/16 00:18; Admin Dose 1 PATCH; Start 04/26/16 at 22:30 Lorazepam (Ativan) 1 mg Q2HWA PRN PEG Anxiety Last administered on 04/27/16 23 :40; Admin Dose 1 MG; Start 04/26/16 at 22:30 Clonazepam (Klonopin) 0.5 mg Q8 GTB Last administered on 05/01/16 14:33; Admin Dose 0.5 MG; Start 04/27/16 at 06:00 Acetaminophen (Tylenol Liquid) 650 mg Q6H PRN NGT PAIN AND OR ELEVATED TEMP Last administered on 04/30/16 08:31; Admin Dose 650 MG; Start 04/27/16 at 04:30 Insulin Aspart (Novolog Insulin Pen) NOVOLOG *MODERATE* ALGORI... Q4 SC Last administered on 04/27/16 12:58; Admin Dose 10 UNIT; Start 04/27/16 at 13:00; Status Future Hold Insulin Glargine (Lantus) 15 unit HS SC ; Start 04/27/16 at 21:00; Status Future Hold Insulin Aspart (Novolog Insulin Pen) 7 unit Q4 SC ; Start 04/27/16 at 13:00; Status Future Hold Amikacin Sulfate (Amikacin Iv Per Pharmacy) AMIKACIN PER PHARMACY NOTE XX ; Start 04/27/16 at 13:00 Diagnostic Test (Pha) (Accucheck) 1 ea Q1H XX Last administered on 05/01/16 14 :36; Admin Dose 1 EA; Start 04/27/16 at 14:00 Dextrose (D50w Syringe) 25 ml Q15M PRN IV Till BS 80 mg/dL or above x2; Start 04/27/16 at 14:00 Dextrose (D50w Syringe) 50 ml Q15M PRN IV Till BS 80 mg/dL or above x2; Start 04/27/16 at 14:00 IV Flush 10 ml 10 ml PRN PRN IV IV PROTOCOL; Start 04/27/16 at 17:30 Amikacin Sulfate/ Sodium Chloride (Amikacin/NS) 104 ml @ 104 mls/hr Q36H IVPB Last administered on 04/30/16 14:46; Admin Dose 104 MLS/HR; Start 04/29/16 at 03:00 INES TORRE MD May 01, 2016 14:44
--- NOTE | 2016-05-01 17:50 | PN ---
DATE: 05/01/2016 PULMONARY FOLLOWUP SUBJECTIVE: Chart reviewed. The patient remains on ventilator, saturating 100%. The patient does not appear in acute distress. The patient remains on insulin infusion. PHYSICAL EXAMINATION: VITAL SIGNS: Blood pressure 130/67, pulse 109, respiration 26, temperature afebrile. HEENT: Pupils are equal and reactive to light. NECK: Supple, no JVD noted, no cervical adenopathy, no carotid bruits heard. Tracheostomy site matthew ar. LUNGS: Decreased breath sounds at the bases. CARDIOVASCULAR: S1, S2 normal. ABDOMEN: Soft, obese, nontender, no organomegaly or masses noted. EXTREMITIES: No clubbing or cyanosis noted. Trace pretibial edema present. NEUROLOGIC: Encephalopathic. LABORATORY DATA: WBC 17.5, hemoglobin 8.3, hematocrit 25, platelets 246. Sodium 138, potassium 4.2 , chloride 102, CO2 28, BUN 16, 0.53, glucose 130. IMPRESSION: 1. Ventilator-dependent respiratory failure, hypoxemic. 2. Tracheostomy dependent. 3. Pneumonia. 4. Anemia, status post esophagogastroduodenoscopy and colonoscopy. 5. Chronic encephalopathy. 6. History of diabetes mellitus. 7. Hypertension. 8. Craniotomy history. 9. History of congestive heart failure. 10. History of hypertension. 11. Anemia. RECOMMENDATIONS: 1. Continue vent support. 2. Gastrointestinal followup. 3. Consider tapering off of insulin infusion drip and change to sliding scale. 4. Proton pump inhibitor. 5. Check pathology. 6. Once patient is off insulin drip and hematocrit is stable, the patient can be transferred to [facility] for further care. 7. Followup labs and x-ray. Dictated By: GUME ELDRIDGE MD, MA/DENNIS Conf#: [id number] DID#: [id number]
--- NOTE | 2016-05-01 18:02 | PN ---
DATE: SUBJECTIVE: Acute events overnight. The patient is lying comfortably in bed. VITAL SIGNS: T-max 99.8, T-current 98.9, pulse 112, respirations 22, blood pressure 131/63, saturat ion 99% on vent. LABORATORY DATA: WBC 17.5, platelets 246. No shift, no bands. BUN 16, creatinine 0.53. MICROBIOLOGY: Cultures have been negative. ANTIMICROBIALS: The patient is on: 1. Cefepime. 2. Amikacin. INDWELLINGS: Trach, PEG, Rivera. PICC line placed on 04/27/2016. PHYSICAL EXAMINATION: GENERAL: Fragile, elderly woman who is in no distress. HEENT: Head atraumatic, normocephalic. Sclerae anicteric. Buccal mucosa dry. NECK: Supple. Tracheostomy present. CHEST: Rise symmetrical. Breath sounds diminished to bases. HEART: S1, S2. ABDOMEN: Soft, bowel tones present. EXTREMITIES: Without cyanosis. ASSESSMENT: 1. Systemic inflammatory response syndrome with persistent leukocytosis. 2. Pneumonia. 3. Anemia, status post esophagogastroduodenoscopy with colonoscopy. No evidence of malignancy per pathology. 4. Dysphagia. 5. Diabetes. 6. History of craniotomy. PLAN: The patient remains stable. No fevers. Still with persistent leukocytosis. However, all cu ltures have been negative since admission. We will continue her on current regimen. Dictated By: JEFF SERNA HEAD BUTLER for ANGEL HUANG MD NI/NTS Conf#: [id number] DID#: [id number] CC: JOSR LORENZO MD;*EndCC*
[2016-05-02] VITALS (36 sets, daily range): BP systolic 87–160; BP diastolic 49–103; PULSE 112–136; RESP 18–35
[2016-05-02] MEDS: ACCUCHECK XX SCH ×11 (01:00→10:00)
[2016-05-02] MEDS: ACETYLCYSTEINE 20% 4 ML VIAL NEB SCH ×5 (01:29→19:54)
[2016-05-02] MEDS: LEVALBUTEROL (NEB) 0.63 MG/3 ML AMP HHN PRN ×5 (01:29→19:54)
[2016-05-02] MEDS: AMIKACIN 1,000 MG in SOD CHLORIDE 0.9% 100 ML IVPB SCH (03:19)
[2016-05-02] MEDS: LANSOPRAZOLE 30 MG CAP GTB SCH (05:11)
[2016-05-02] MEDS: clonAZEPAM 0.5 MG TAB GTB SCH ×3 (05:11→21:39)
[2016-05-02 05:38] LABS: BASOPHIL # 0.1 10^3/ul (0.0-0.1); BASOPHILS % 0.3 % (0.0-2.0); EOSINOPHILS # 1.1 10^3/ul (0.0-0.5); EOSINOPHILS % 6.3 % (0.0-7.0); HEMATOCRIT 25.1 % (37.0-47.0); HEMOGLOBIN 8.2 g/dl (12.0-16.0); LYMPHOCYTES # 2.3 10^3/ul (0.8-2.9); LYMPHOCYTES % 13.5 % (15.0-51.0); MEAN CORPUSCULAR HEMOGLOBIN 30.7 pg (29.0-33.0); MEAN CORPUSCULAR HGB CONC 32.5 g/dl (32.0-37.0); MEAN CORPUSCULAR VOLUME 94.6 fl (82.0-101.0); MEAN PLATELET VOLUME 9.8 fl (7.4-10.4); MONOCYTE # 2.1 10^3/ul (0.3-0.9); MONOCYTES % 12.3 % (0.0-11.0); NEUTROPHIL # 11.6 10^3/ul (1.6-7.5); NEUTROPHILS % 67.6 % (39.0-77.0); PLATELET COUNT 263 10^3/UL (140-440); RED BLOOD COUNT 2.66 10^6/ul (4.20-5.40); UNCORRECTED WBC 17.2 10^3/ul (4.8-10.8); WHITE BLOOD COUNT 17.2 10^3/ul (4.8-10.8)
[2016-05-02 05:54] LABS: CREATININE 0.51 mg/dl (0.44-1.00)
[2016-05-02 05:55] LABS: CALCIUM 8.6 mg/dl (8.4-10.2)
[2016-05-02 06:10] LABS: CONDITION 1; LH ANALYZER COMMENTS 1; NUCLEATED RED BLOOD CELLS # 0.3 10^3/ul (0.0-0.0)
[2016-05-02] MEDS: MULTIVITAMINS 5 ML CUP GTB SCH (08:16)
[2016-05-02] MEDS: FERROUS SULFATE 60 MG/ML 5ML CUP GTB SCH ×2 (08:16→21:20)
[2016-05-02] MEDS: CHLORHEXIDINE GLUCONATE 15 ML UD CUP MM SCH ×2 (08:16→21:20)
[2016-05-02] MEDS: LACTOBACILLUS RHAMNOSUS CAP GTB SCH ×2 (08:17→21:20)
[2016-05-02] MEDS: NYSTATIN 30 GM POWDER BTL TOP SCH ×2 (08:17→21:28)
[2016-05-02] MEDS: COLLAGENASE 30 GM TUBE TOP SCH (08:18)
[2016-05-02] MEDS: CEFEPIME 1GM/50 ML (PMX) 50 ML IVPB SCH ×2 (09:28→21:20)
--- NOTE | 2016-05-02 10:58 | CONS ---
Date/Time of Note Date/Time of Note DATE: 05/02/16 TIME: 10:52 Consult Date/Type/Reason Admit Date/Time Apr 21, 2016 at 10:39 Type of Consultation: pulmonary Subjective Patient remains on mechanical ventilation appears agitated Continues insulin drip Currently hemodynamically stable Objective Vital Signs Date Time Temp Pulse Resp B/P Pulse Ox O2 Delivery O2 Flow Rate FiO2 05/02/16 09:47 117 22 100 30 05/02/16 08:00 116/55 Mechanical Ventilator 05/02/16 04:00 98.3 Intake and Output 05/01/16 05/01/16 05/02/16 15:00 23:00 07:00 Intake Total 619 ml 710 ml 673 ml Output Total 335 ml 350 ml 405 ml Balance 284 ml 360 ml 268 ml PHYSICAL EXAMINATION: VITAL SIGNS: As above HEENT: Pupils are equal and reactive to light. NECK: Supple, no JVD noted, no cervical adenopathy, no carotid bruits heard. Tracheostomy site clear. LUNGS: Decreased breath sounds at the bases. CARDIOVASCULAR: S1, S2 normal. ABDOMEN: Soft, obese, nontender, no organomegaly or masses noted. EXTREMITIES: No clubbing or cyanosis noted. NEUROLOGIC: Encephalopathic. Results/Medications Result Diagram: 05/02/16 0400 05/02/16 0400 Results 24 hrs Laboratory Tests Test 05/01/16 11:52 05/01/16 12:30 05/01/16 14:34 05/01/16 15:27 Bedside Glucose 187 169 168 175 Test 05/01/16 17:07 05/01/16 18:43 05/01/16 20:17 05/01/16 22:06 Bedside Glucose 190 170 188 170 Test 05/01/16 23:18 05/02/16 00:12 05/02/16 01:33 05/02/16 02:16 Bedside Glucose 161 164 157 160 Test 05/02/16 03:20 05/02/16 04:00 05/02/16 04:39 05/02/16 06:01 Bedside Glucose 157 170 172 Anion Gap 12 Basophils # 0.1 Basophils % 0.3 Blood Morphology Comment Blood Urea Nitrogen 19 Calcium Level 8.6 Carbon Dioxide Level 30 Chloride Level 100 Creatinine 0.51 Differential Comment AUTO w/SCAN Eosinophils # 1.1 H Eosinophils % 6.3 Glucose Level 159 Hematocrit 25.1 L Hemoglobin 8.2 L Lymphocytes # 2.3 Lymphocytes % 13.5 L Mean Corpuscular Hemoglobin 30.7 Mean Corpuscular Hemoglobin Concent 32.5 Mean Corpuscular Volume 94.6 Mean Platelet Volume 9.8 Monocytes # 2.1 H Monocytes % 12.3 H Neutrophils # 11.6 H Neutrophils % 67.6 Nucleated Red Blood Cells # 0.3 H Nucleated Red Blood Cells % 2.0 H Platelet Count 263 Potassium Level 4.0 Red Blood Count 2.66 L Red Cell Distribution Width 19.0 H Sodium Level 138 White Blood Count 17.2 H Test 05/02/16 08:27 05/02/16 09:23 05/02/16 09:24 05/02/16 10:25 Bedside Glucose 197 184 174 Lab Scanned Report REFERENCE LAB Medications Current Medications Chlorhexidine Gluconate (Peridex) 15 ml Q12 MM Last administered on 05/02/16 08:16; Admin Dose 15 ML; Start 04/21/16 at 21:00 Ferrous Sulfate (Feosol Liquid Cup) 330 mg BID GTB Last administered on 08:16; Admin Dose 330 MG; Start 04/21/16 at 21:00 Lactobacillus Acidophilus/ Rhamnosus (Culturelle) 1 cap BID GTB Last administered on 05/02/16 08:17; Admin Dose 1 CAP; Start 04/21/16 at 21:00 Metoclopramide HCl (Reglan) 10 mg Q6 PRN GTB NAUSEA AND/OR VOMITING; Start 03/26 at 17:00 Multivitamins (Thera-Plus) 5 ml DAILY GTB Last administered on 05/02/16 08:16 ; Admin Dose 5 ML; Start 04/22/16 at 09:00 Miscellaneous Information 1 ea NOTE XX ; Start 04/21/16 at 17:30 Glucose (Glutose) 15 gm Q15M PRN PO DECREASED GLUCOSE; Start 04/21/16 at 17:30 Glucose (Glutose) 22.5 gm Q15M PRN PO DECREASED GLUCOSE; Start 04/21/16 at 17: 30 Dextrose (D50w Syringe) 25 ml Q15M PRN IV DECREASED GLUCOSE; Start 04/21/16 at 17:30 Dextrose (D50w Syringe) 50 ml Q15M PRN IV DECREASED GLUCOSE; Start 04/21/16 at 17:30 Glucagon (Glucagen) 1 mg Q15M PRN IM DECREASED GLUCOSE; Start 04/21/16 at 17:30 Glucose (Glutose) 15 gm Q15M PRN BUCCAL DECREASED GLUCOSE; Start 04/21/16 at 17 :30 Collagenase (Santyl) 1 applic DAILY TOP Last administered on 05/02/16 08:18; Admin Dose 1 APPLIC; Start 04/22/16 at 16:30 Nystatin 1 applic 1 applic BID TOP Last administered on 05/02/16 08:17; Admin Dose 1 APPLIC; Start 04/22/16 at 21:00 Cefepime HCl (Maxipime 1gm/50 ml (Pmx)) 50 ml @ 100 mls/hr Q12 IVPB Last administered on 05/02/16 09:28; Admin Dose 100 MLS/HR; Start 04/23/16 at 21:00 Lansoprazole (Prevacid) 30 mg DAILY@06 GTB Last administered on 05/02/16 05:11 ; Admin Dose 30 MG; Start 04/25/16 at 06:00 Fentanyl (Duragesic 50 Mcg/Hr Patch) 1 patch Q72H TRANSDERM Last administered on 04/30/16 00:18; Admin Dose 1 PATCH; Start 04/26/16 at 22:30 Lorazepam (Ativan) 1 mg Q2HWA PRN PEG Anxiety Last administered on 04/27/16 23 :40; Admin Dose 1 MG; Start 04/26/16 at 22:30 Clonazepam (Klonopin) 0.5 mg Q8 GTB Last administered on 05/02/16 05:11; Admin Dose 0.5 MG; Start 04/27/16 at 06:00 Acetaminophen (Tylenol Liquid) 650 mg Q6H PRN NGT PAIN AND OR ELEVATED TEMP Last administered on 04/30/16 08:31; Admin Dose 650 MG; Start 04/27/16 at 04:30 Insulin Aspart (Novolog Insulin Pen) NOVOLOG *MODERATE* ALGORI... Q4 SC Last administered on 04/27/16 12:58; Admin Dose 10 UNIT; Start 04/27/16 at 13:00; Status Future Hold Insulin Glargine (Lantus) 15 unit HS SC ; Start 04/27/16 at 21:00; Status Future Hold Insulin Aspart (Novolog Insulin Pen) 7 unit Q4 SC ; Start 04/27/16 at 13:00; Status Future Hold Amikacin Sulfate (Amikacin Iv Per Pharmacy) AMIKACIN PER PHARMACY NOTE XX ; Start 04/27/16 at 13:00 Diagnostic Test (Pha) (Accucheck) 1 ea Q1H XX Last administered on 05/02/16 06 :42; Admin Dose 1 EA; Start 04/27/16 at 14:00 Dextrose (D50w Syringe) 25 ml Q15M PRN IV Till BS 80 mg/dL or above x2; Start 04/27/16 at 14:00 Dextrose (D50w Syringe) 50 ml Q15M PRN IV Till BS 80 mg/dL or above x2; Start 04/27/16 at 14:00 IV Flush 10 ml 10 ml PRN PRN IV IV PROTOCOL; Start 04/27/16 at 17:30 Amikacin Sulfate/ Sodium Chloride (Amikacin/NS) 104 ml @ 104 mls/hr Q36H IVPB Last administered on 05/02/16 03:19; Admin Dose 104 MLS/HR; Start 04/29/16 at 03:00 Assessment/Plan Chief Complaint/Hosp Course IMPRESSION: 1. Ventilator-dependent respiratory failure, hypoxemic. 2. Tracheostomy dependent. 3. Pneumonia. 4. Anemia, status post esophagogastroduodenoscopy and colonoscopy. 5. Chronic encephalopathy. 6. History of diabetes mellitus. 7. Hypertension. 8. Craniotomy history. 9. History of congestive heart failure. 10. History of hypertension. 11. Anemia. RECOMMENDATIONS: 1. Continue vent support. 2. Gastrointestinal followup. 3. Consider tapering off of insulin infusion drip and change to sliding scale. Consider endocrinology consult. I have added Lantus 14 units 4. Proton pump inhibitor. 5. Check pathology. 6. Once patient is off insulin drip and hematocrit is stable, the patient can be transferred to [facility] for further care. 7. Followup labs and x-ray. Problems: JORDON MONSON MD, [facility] May 02, 2016 10:58
[2016-05-02] MEDS ORDERED: INSULIN GLARGINE [LANtus] 3 ML PEN SC SCH (11:00)
[2016-05-02] MEDS: INSULIN REGULAR, HUMAN 100 UNIT in SOD CHLORIDE 0.9% 99 ML IV SCH ×2 (12:18)
[2016-05-02] MEDS: ACETAMINOPHEN 650MG/20.3ML CUP NGT PRN (13:48)
--- NOTE | 2016-05-02 14:48 | CONS ---
Date/Time of Note Date/Time of Note DATE: 05/02/16 TIME: 14:47 Assessment/Plan Assessment/Plan Additional Assessment/Plan ASSESSMENT AND PLAN: 1. Anemia, gastritis,gastric ulcer,ischemic ulcer in colon 2. Diabetes mellitus.still on insulin drip 3. Cerebrovascular accident. 4. Vent dependent respiratory failure.transferred to ICU for worsening of her condition. 5. Paroxysmal atrial fibrillation. 6. Dysphagia status post G-tube. 7. Hypertension. 8. Renal insufficiency. 9. Multiple wounds. 10. Cardiomyopathy. 11.intermittent vomiting for months as per daughter 12.sepsis,afebrile now,and wbc coming down Plan antibiotics as per ID resume feeding continue PPI Consultation Date/Type/Reason Admit Date/Time Apr 21, 2016 at 10:39 Type of Consultation: pulmonary 24 HR Interval Summary Constitutional: no complaints Exam/Review of Systems Vital Signs Vitals Vital Signs Date Time Temp Pulse Resp B/P Pulse Ox O2 Delivery O2 Flow Rate FiO2 05/02/16 14:45 114 18 99 30 05/02/16 08:00 116/55 Mechanical Ventilator 05/02/16 04:00 98.3 Intake and Output 05/01/16 05/01/16 05/02/16 15:00 23:00 07:00 Intake Total 619 ml 710 ml 673 ml Output Total 335 ml 350 ml 405 ml Balance 284 ml 360 ml 268 ml Exam Constitutional: alert, oriented, well developed Psych: nl mood/affect, no complaints Head: atraumatic, normocephalic Eyes: EOMI, PERRL, nl conjunctiva, nl lids, nl sclera ENMT: nl external ears & nose, nl lips & teeth, nl nasal mucosa & septum Neck: non-tender, supple Respiratory: clear to auscultation, normal air movement Cardiovascular: nl pulses, regular rate and rhythm Gastrointestinal: nl liver, spleen, non-tender, soft Musculoskeletal: nl extremities to inspection, nl gait and stance Extremities: normal pulses Neurological: KAIWHAKAHAERE II-XII intact, nl mental status, nl speech, nl strength Skin: nl turgor, No rash or lesions Lymph: nl lymph nodes Results Result Diagram: 05/02/16 0400 05/02/16 0400 Results 24 hrs Laboratory Tests Test 05/01/16 15:27 05/01/16 17:07 05/01/16 18:43 05/01/16 20:17 Bedside Glucose 175 190 170 188 Test 05/01/16 22:06 05/01/16 23:18 05/02/16 00:12 05/02/16 01:33 Bedside Glucose 170 161 164 157 Test 05/02/16 02:16 05/02/16 03:20 05/02/16 04:00 05/02/16 04:39 Bedside Glucose 160 157 170 Anion Gap 12 Basophils # 0.1 Basophils % 0.3 Blood Morphology Comment Blood Urea Nitrogen 19 Calcium Level 8.6 Carbon Dioxide Level 30 Chloride Level 100 Creatinine 0.51 Differential Comment AUTO w/SCAN Eosinophils # 1.1 H Eosinophils % 6.3 Glucose Level 159 Hematocrit 25.1 L Hemoglobin 8.2 L Lymphocytes # 2.3 Lymphocytes % 13.5 L Mean Corpuscular Hemoglobin 30.7 Mean Corpuscular Hemoglobin Concent 32.5 Mean Corpuscular Volume 94.6 Mean Platelet Volume 9.8 Monocytes # 2.1 H Monocytes % 12.3 H Neutrophils # 11.6 H Neutrophils % 67.6 Nucleated Red Blood Cells # 0.3 H Nucleated Red Blood Cells % 2.0 H Platelet Count 263 Potassium Level 4.0 Red Blood Count 2.66 L Red Cell Distribution Width 19.0 H Sodium Level 138 White Blood Count 17.2 H Test 05/02/16 06:01 05/02/16 08:27 05/02/16 09:23 05/02/16 09:24 Bedside Glucose 172 197 184 Lab Scanned Report REFERENCE LAB Test 05/02/16 10:25 05/02/16 11:19 05/02/16 12:15 05/02/16 13:00 Bedside Glucose 174 172 154 154 Test 05/02/16 14:08 Bedside Glucose 215 Medications Medications Current Medications Chlorhexidine Gluconate (Peridex) 15 ml Q12 MM Last administered on 05/02/16 08:16; Admin Dose 15 ML; Start 04/21/16 at 21:00 Ferrous Sulfate (Feosol Liquid Cup) 330 mg BID GTB Last administered on 08:16; Admin Dose 330 MG; Start 04/21/16 at 21:00 Lactobacillus Acidophilus/ Rhamnosus (Culturelle) 1 cap BID GTB Last administered on 05/02/16 08:17; Admin Dose 1 CAP; Start 04/21/16 at 21:00 Metoclopramide HCl (Reglan) 10 mg Q6 PRN GTB NAUSEA AND/OR VOMITING; Start 03/26 at 17:00 Multivitamins (Thera-Plus) 5 ml DAILY GTB Last administered on 05/02/16 08:16 ; Admin Dose 5 ML; Start 04/22/16 at 09:00 Miscellaneous Information 1 ea NOTE XX ; Start 04/21/16 at 17:30 Glucose (Glutose) 15 gm Q15M PRN PO DECREASED GLUCOSE; Start 04/21/16 at 17:30 Glucose (Glutose) 22.5 gm Q15M PRN PO DECREASED GLUCOSE; Start 04/21/16 at 17: 30 Dextrose (D50w Syringe) 25 ml Q15M PRN IV DECREASED GLUCOSE; Start 04/21/16 at 17:30 Dextrose (D50w Syringe) 50 ml Q15M PRN IV DECREASED GLUCOSE; Start 04/21/16 at 17:30 Glucagon (Glucagen) 1 mg Q15M PRN IM DECREASED GLUCOSE; Start 04/21/16 at 17:30 Glucose (Glutose) 15 gm Q15M PRN BUCCAL DECREASED GLUCOSE; Start 04/21/16 at 17 :30 Collagenase (Santyl) 1 applic DAILY TOP Last administered on 05/02/16 08:18; Admin Dose 1 APPLIC; Start 04/22/16 at 16:30 Nystatin 1 applic 1 applic BID TOP Last administered on 05/02/16 08:17; Admin Dose 1 APPLIC; Start 04/22/16 at 21:00 Cefepime HCl (Maxipime 1gm/50 ml (Pmx)) 50 ml @ 100 mls/hr Q12 IVPB Last administered on 05/02/16 09:28; Admin Dose 100 MLS/HR; Start 04/23/16 at 21:00 Lansoprazole (Prevacid) 30 mg DAILY@06 GTB Last administered on 05/02/16 05:11 ; Admin Dose 30 MG; Start 04/25/16 at 06:00 Fentanyl (Duragesic 50 Mcg/Hr Patch) 1 patch Q72H TRANSDERM Last administered on 04/30/16 00:18; Admin Dose 1 PATCH; Start 04/26/16 at 22:30 Lorazepam (Ativan) 1 mg Q2HWA PRN PEG Anxiety Last administered on 04/27/16 23 :40; Admin Dose 1 MG; Start 04/26/16 at 22:30 Clonazepam (Klonopin) 0.5 mg Q8 GTB Last administered on 05/02/16 13:46; Admin Dose 0.5 MG; Start 04/27/16 at 06:00 Acetaminophen (Tylenol Liquid) 650 mg Q6H PRN NGT PAIN AND OR ELEVATED TEMP Last administered on 05/02/16 13:48; Admin Dose 650 MG; Start 04/27/16 at 04:30 Amikacin Sulfate (Amikacin Iv Per Pharmacy) AMIKACIN PER PHARMACY NOTE XX ; Start 04/27/16 at 13:00 IV Flush 10 ml 10 ml PRN PRN IV IV PROTOCOL; Start 04/27/16 at 17:30 Amikacin Sulfate/ Sodium Chloride (Amikacin/NS) 104 ml @ 104 mls/hr Q36H IVPB Last administered on 05/02/16 03:19; Admin Dose 104 MLS/HR; Start 04/29/16 at 03:00 Insulin Aspart (Novolog Insulin Pen) NOVOLOG *MODERATE* ALGORI... Q4 SC ; Start 05/02/16 at 17:00 Insulin Glargine (Lantus) 28 unit QAM SC ; Start 05/03/16 at 09:00 INES TORRE MD May 02, 2016 14:48
--- NOTE | 2016-05-02 16:29 | PN ---
DATE: 05/02/2016 SUBJECTIVE: This is an internal medicine progress note and followup on 65-year-old female with acut e respiratory failure and pneumonia, anemia, history of craniotomy and diabetes mellitus. The patie nt is currently in ICU with tracheostomy to vent. The patient is currently lethargic on an insulin drip with latest blood glucose being. Per nursing staff, the patient is arousable and restless at times. Awake, alert, no fever, nausea, vomiting reported. Patient is tachycardic. OBJECTIVE VITAL SIGNS: Temperature is 98.3, pulse is 114, blood pressure is 116/55, respiratory rate is 22, o xygen saturation 100% on 30% FIO2. GENERAL: Well-developed, obese female currently tracheostomy to ventilator support, is lethargic. HEENT: Head is atraumatic, normocephalic. NECK: Supple, no JVD. The patient has a tracheostomy at the base of the neck. LUNGS: Diminished at the bases, scattered rhonchi bilaterally. HEART: Normal S1, S2. The patient is tachycardic. No murmurs, gallops, clicks, rubs noted. ABDOMEN: Protuberant, soft, nondistended, nontender. G-tube in place. EXTREMITIES: No edema. NEUROLOGIC: Patient is lethargic. LABORATORY DATA FOR TODAY: CBC: White blood cells 17.2, hemoglobin 8.2, hematocrit 25.1, platelets 263. Chemistry: Sodium is 138, potassium 4.0, chloride 100, carbon dioxide 30, anion gap 12, BUN is 19, creatinine 0.51, glucose 159, calcium is 8.6. ASSESSMENT AND PLAN: 1. Acute on chronic ventilator dependent respiratory failure. Patient is continued on ventilator s upport. Dr. Mcbride is following in pulmonology consultation. Continue ventilator support and bron chodilators. 2. Healthcare-acquired pneumonia. Dr. Hernadez is following the patient in an infectious disease con sultation. Continue antibiotics per ID. The patient is currently ____. 3. Diabetes mellitus type 2. Patient is currently on insulin drip. Will stop insulin drip. Joel nue Lantus at 28 units subq daily and NovoLog per sliding scale q.4h. Continue G-tube feeding, anem ia, gastritis, gastric culture and ischemic ulcer in the colon. The patient is status post esophago gastroduodenoscopy and colonoscopy by Dr. Dowd. Continue PPI. 4. Multiple wounds. Continue current wound care, offloading. 5. Chronic encephalopathy with history of craniotomy. Continue to monitor. 6. Congestive heart failure by history. Continue to monitor intake and output. Will continue sequ ential compression device for deep venous thrombosis prophylaxis and Prevacid for peptic ulcer disea se prophylaxis. Further recommendations based on clinical course. Plan of care discussed with Dr. Loernzo. Dictated By: DELIO GUILLERMO JAVA SYSTEMS ANALYST for JOSR LORENZO MD SR/NTS Conf#: [id number] DID#: [id number]
--- NOTE | 2016-05-02 17:40 | PN ---
DATE: SUBJECTIVE: No acute changes. The patient is lying comfortably in bed, still on insulin drip. No fevers. VITAL SIGNS: Temperature 98.3, pulse 114, respirations 18, blood pressure 116/55, saturation 99% on 30 FiO2. LABORATORY DATA: WBC 17.2, H and H 8.2 and 25.1, platelets 263, neutrophils 67.6. BUN 19, creatini ne 0.51. ANTIMICROBIALS: The patient is on: 1. Amikacin. 2. Cefepime. INDWELLINGS: Trach, PEG, Rivera. PICC line placed on 04/27/2016. PHYSICAL EXAMINATION: GENERAL: This is a chronically ill-appearing, fragile, elderly woman who is lying comfortably in be d. HEENT: Head atraumatic, normocephalic. Sclerae anicteric. Buccal mucosa dry. NECK: Supple. Tracheostomy present. CHEST: Rise symmetrical. Breath sounds diminished to bases. HEART: S1, S2. ABDOMEN: Soft, bowel tones present. EXTREMITIES: No cyanosis. ASSESSMENT: 1. Persistent leukocytosis. 2. Healthcare-associated pneumonia with sputum culture grew multi-drug resistant Pseudomonas and Pr oteus mirabilis. 3. Diabetes with significant hyperglycemia, patient remains on insulin drip. 4. Anemia, status post EGD with colonoscopy. 5. Dysphagia. 6. History of craniotomy. PLAN: The patient remains clinically unchanged. She is being followed by multiple consultants. Sh e is still on insulin drip. Consider endocrinology evaluation. Dictated By: JEFF SERNA ARCHEOLOGY FACULTY MEMBER for ANGEL HUANG MD NI/NTS Conf#: [id number] DID#: [id number] CC: JOSR LORENZO MD;*EndCC*
[2016-05-02] MEDS: INSULIN ASPART [NOVOLOG] 3 ML PEN SC SCH ×2 (18:30→21:50)
--- NOTE | 2016-05-02 19:30 | CONS ---
Date/Time of Note Date/Time of Note DATE: 05/02/16 TIME: 19:14 Assessment/Plan Assessment/Plan Problems: (1) Type 2 diabetes mellitus with other specified complication Status: Chronic Comment: BG levels were in good control on insulin drip. Primary team trying to control w/ lantus. While at [facility], we had pt. in fairly good control w/ NPH 18 q8. Will resume this. If this is not sufficient, will titrate up. If pt. w / hypoglycemia, will titrate down. Will follow with you. Consultation Date/Type/Reason Admit Date/Time Apr 21, 2016 at 10:39 Date of Consultation: May 02, 2016 Type of Consultation: Endocrinology Reason for Consultation T2DM unable to control w/o insulin drip Referring Provider: DELIO GUILLERMO Hx of Present Illness Pt. is 65 y/o C F w/ complicated medical history including T2DM, HTN, systolic CHF, paroxysmal A-fib, DVT, PE, COPD, OA, PUD, GERD, chronic BLE weakness, chronic pain syndrome in [facility] until 4 1/2 months ago when she was admitted to [place] w/ R MCA stroke which evolved into severe cerebral edema w/ midline shift. Pt. req'd hemicraniectomy. Pt. remained on vent and req'd trach and PEG. S/p prolonged stay at [facility] from which pt. was sent to subacute. In poor health until 11 days ago when transferred back to [facility] for dehydration and anemia worrisome for GIB. 1 week after arrival pt. had upper and lower endoscopies indicating gastritis and ischemic ulcer in colon. While in hospital, glucose could not be controlled w/o insulin drip so pt. transferred to ICU. Pt. w/ worsening clinical status and found to have probable vent-associated PNA and determined to have acute on chronic respiratory failure. Pt. stabilized from these problems and primary team wanted to transfer her out of ICU. Endo consulted to manage DM and assist w/ transitioning insulin drip off. Subjective hx not possible: pt non-verbal Psychological: nl mood/affect, no complaints Past Medical History Medical History: congestive heart failure, coronary artery disease, deep vein thrombosis, diabetes, GERD, high cholesterol, hypertension, peptic ulcer disease , other (DVT, PE, COPD, OA, CVA, A-fib, V-tach) Past Surgical History Past Surgical Hx: other (gastric stapling, carpal tunnel release, B TKA, LS- spine surgery w/ chronically loose hardware) Family History Significant Family History: vascular disease (CVA in sister) Social History , 1 daughter Alcohol Use: other (unknown) Smoking Status: Former smoker Drug Use: none Exam/Review of Systems Vital Signs Vitals VS - Last 72 Hours, by Label Date Time Temp Pulse Resp B/P Pulse Ox O2 Delivery O2 Flow Rate FiO2 05/02/16 19:00 126 23 103/64 100 05/02/16 18:00 124 34 113/74 100 Mechanical Ventilator 05/02/16 17:13 117 28 100 30 05/02/16 17:00 114 25 107/67 100 Mechanical Ventilator 05/02/16 16:00 99.2 114 30 124/70 100 Mechanical Ventilator 05/02/16 16:00 118 05/02/16 15:00 114 25 114/65 95 Mechanical Ventilator 05/02/16 14:45 114 18 99 30 05/02/16 14:00 127 35 160/70 97 Mechanical Ventilator 05/02/16 13:01 116 18 99 30 05/02/16 13:00 116 21 110/62 98 Mechanical Ventilator 05/02/16 12:00 98.4 114 23 96/64 98 Mechanical Ventilator 05/02/16 12:00 114 05/02/16 11:45 113 25 99 30 05/02/16 11:00 114 23 98/64 98 Mechanical Ventilator 05/02/16 10:00 116 21 112/62 98 Mechanical Ventilator 05/02/16 09:47 117 22 100 30 05/02/16 09:00 98.0 116 21 108/62 98 Mechanical Ventilator 05/02/16 08:37 117 33 99 30 05/02/16 08:10 30 05/02/16 08:00 114 05/02/16 08:00 115 24 116/55 98 Mechanical Ventilator 05/02/16 07:00 117 26 109/75 98 Mechanical Ventilator 05/02/16 06:00 122 24 87/64 100 05/02/16 05:47 117 26 100 30 05/02/16 05:00 118 22 108/49 100 Mechanical Ventilator 05/02/16 04:00 98.3 112 23 116/75 100 Mechanical Ventilator 05/02/16 04:00 113 05/02/16 03:52 116 26 100 30 05/02/16 03:00 120 23 111/63 100 Mechanical Ventilator 05/02/16 02:00 124 20 100 Mechanical Ventilator 05/02/16 01:47 116 28 100 30 05/02/16 01:40 113 25 100 30 05/02/16 01:00 120 21 129/64 100 Mechanical Ventilator 05/02/16 00:00 98.3 116 21 108/55 98 Mechanical Ventilator 05/02/16 00:00 114 05/01/16 23:31 114 22 97 30 05/01/16 23:00 116 22 110/55 94 Mechanical Ventilator 05/01/16 22:00 121 20 110/51 100 Mechanical Ventilator 05/01/16 21:47 114 23 97 30 05/01/16 21:00 119 26 110/65 95 Mechanical Ventilator 05/01/16 20:25 116 23 100 30 05/01/16 20:00 120 05/01/16 20:00 120 24 118/66 97 Mechanical Ventilator 05/01/16 20:00 30 05/01/16 19:41 115 23 96 30 05/01/16 19:00 98.9 121 25 104/63 98 05/01/16 17:30 113 24 118/68 98 Mechanical Ventilator 05/01/16 17:05 120 26 98 30 05/01/16 17:00 120 22 97 05/01/16 16:30 114 26 135/74 78 Mechanical Ventilator 05/01/16 16:00 117 05/01/16 16:00 98.0 118 29 98 05/01/16 15:30 113 17 95/28 100 Mechanical Ventilator 05/01/16 15:15 115 21 100 30 05/01/16 15:00 115 25 131/63 05/01/16 14:30 114 18 116/59 05/01/16 14:00 119 22 146/60 98 05/01/16 13:30 114 28 129/52 05/01/16 13:05 113 22 100 30 05/01/16 13:00 113 31 115/58 Mechanical Ventilator 05/01/16 12:30 120 126/72 97 05/01/16 12:00 98.9 112 22 131/63 99 Mechanical Ventilator 05/01/16 12:00 113 05/01/16 11:30 110 26 133/71 100 Mechanical Ventilator 05/01/16 11:10 109 26 100 30 05/01/16 11:00 112 24 121/64 100 Mechanical Ventilator 05/01/16 10:30 118 21 125/69 99 Mechanical Ventilator 05/01/16 10:00 110 25 124/72 Mechanical Ventilator 05/01/16 09:30 115 28 100 30 05/01/16 09:30 115 22 118/66 99 Mechanical Ventilator 05/01/16 09:00 115 25 141/70 Mechanical Ventilator 05/01/16 08:30 114 25 135/72 97 Mechanical Ventilator 05/01/16 08:00 98.6 112 18 116/58 Mechanical Ventilator 05/01/16 08:00 30 05/01/16 08:00 120 05/01/16 07:45 111 20 98 30 05/01/16 07:30 115 30 135/68 98 Mechanical Ventilator 05/01/16 07:00 114 23 123/70 Mechanical Ventilator 05/01/16 06:00 110 27 130/67 Mechanical Ventilator 05/01/16 05:08 117 26 100 30 05/01/16 04:30 122 25 128/76 100 Mechanical Ventilator 05/01/16 04:00 110 05/01/16 04:00 99.6 114 25 139/79 Mechanical Ventilator 05/01/16 03:30 113 29 132/71 05/01/16 03:03 115 24 100 30 05/01/16 03:00 114 31 123/72 Mechanical Ventilator 05/01/16 02:30 120 23 139/81 97 05/01/16 02:00 123 22 137/74 98 Mechanical Ventilator 05/01/16 01:40 119 24 100 30 05/01/16 01:30 122 21 162/92 100 05/01/16 01:00 119 25 143/87 Mechanical Ventilator 05/01/16 00:30 112 29 134/69 05/01/16 00:00 20 126/72 Mechanical Ventilator 04/30/16 23:30 123 26 126/87 04/30/16 23:17 118 26 100 30 04/30/16 23:00 114 26 116/75 100 Mechanical Ventilator 04/30/16 22:30 113 24 145/72 100 04/30/16 22:00 118 30 152/77 100 Mechanical Ventilator 04/30/16 21:30 112 28 140/82 100 04/30/16 21:00 111 27 99 30 04/30/16 21:00 113 28 145/68 Mechanical Ventilator 04/30/16 20:30 110 25 135/74 100 04/30/16 20:00 112 04/30/16 20:00 40 04/30/16 20:00 113 28 141/76 99 Mechanical Ventilator 04/30/16 19:30 110 21 155/84 100 04/30/16 19:24 109 29 100 30 04/30/16 19:00 99.8 110 28 145/78 100 Mechanical Ventilator 04/30/16 17:30 107 23 136/76 100 Mechanical Ventilator 04/30/16 17:05 109 24 100 30 04/30/16 17:00 109 25 131/74 100 04/30/16 16:30 114 20 130/77 99 Mechanical Ventilator 04/30/16 16:00 98.1 117 29 157/74 97 04/30/16 16:00 117 04/30/16 15:25 114 21 98 30 04/30/16 15:00 115 25 148/78 98 Mechanical Ventilator 04/30/16 14:30 111 21 142/82 100 04/30/16 14:00 111 22 133/88 100 04/30/16 13:30 115 26 137/81 98 Mechanical Ventilator 04/30/16 13:15 106 24 98 30 04/30/16 13:00 107 21 143/74 98 04/30/16 12:30 111 27 116/77 98 04/30/16 12:00 98.6 114 32 138/75 98 Mechanical Ventilator 04/30/16 12:00 113 04/30/16 11:30 110 23 139/66 97 04/30/16 11:20 113 28 99 40 04/30/16 11:00 113 21 129/68 99 04/30/16 10:05 123 25 99 40 04/30/16 10:00 125 22 146/82 99 Mechanical Ventilator 04/30/16 09:30 121 24 147/92 100 Mechanical Ventilator 04/30/16 09:00 120 27 144/85 Mechanical Ventilator 04/30/16 08:30 117 21 128/72 Mechanical Ventilator 04/30/16 08:00 40 04/30/16 08:00 99.1 120 18 132/89 97 Mechanical Ventilator 04/30/16 08:00 120 04/30/16 07:50 120 25 98 40 04/30/16 07:30 114 14 112/92 100 Mechanical Ventilator 04/30/16 07:00 117 26 115/69 99 Mechanical Ventilator 04/30/16 06:00 112 26 131/74 100 Mechanical Ventilator 04/30/16 05:35 113 23 100 04/30/16 05:30 113 23 130/68 100 04/30/16 05:00 118 20 137/76 100 Mechanical Ventilator 04/30/16 04:30 115 25 141/64 100 04/30/16 04:00 116 04/30/16 04:00 117 23 143/124 100 Mechanical Ventilator 04/30/16 03:31 117 26 100 04/30/16 03:30 116 25 122/76 100 Mechanical Ventilator 04/30/16 02:30 152/75 04/30/16 02:00 116 25 143/79 100 Mechanical Ventilator 04/30/16 02:00 116 25 143/79 100 04/30/16 01:37 117 25 100 04/30/16 01:30 110 18 143/69 100 04/30/16 01:00 113 27 128/68 100 Mechanical Ventilator 04/30/16 00:30 122 26 158/74 98 04/30/16 00:00 98.5 116 24 130/112 100 Mechanical Ventilator 04/30/16 00:00 116 04/29/16 23:34 117 22 100 04/29/16 22:30 116 26 119/55 100 04/29/16 22:00 111 23 135/57 98 Mechanical Ventilator 04/29/16 21:34 112 28 100 04/29/16 21:30 118 30 133/74 100 04/29/16 21:00 116 23 145/66 100 Mechanical Ventilator 04/29/16 20:30 110 21 140/68 100 04/29/16 20:28 109 21 100 40 04/29/16 20:00 40 04/29/16 20:00 113 04/29/16 20:00 113 27 124/60 99 Mechanical Ventilator 04/29/16 19:30 99.8 115 22 109/46 100 Mechanical Ventilator Vital Signs Date Time Temp Pulse Resp B/P Pulse Ox O2 Delivery O2 Flow Rate FiO2 05/02/16 19:00 126 23 103/64 100 05/02/16 18:00 Mechanical Ventilator 05/02/16 17:13 30 05/02/16 16:00 99.2 Intake and Output 1/05/01/16 05/02/16 15:00 23:00 07:00 Intake Total 619 ml 710 ml 673 ml Output Total 335 ml 350 ml 405 ml Balance 284 ml 360 ml 268 ml Exam Constitutional: non-verbal, obese Eyes: EOMI, PERRL, nl conjunctiva, nl lids, nl sclera ENMT: mucosa pink and moist, nl external ears & nose Neck: other ((+) trach on vent) Respiratory: clear to auscultation, normal air movement Cardiovascular: nl pulses, regular rate and rhythm, No edema, No murmurs/extra sounds, No rub Gastrointestinal: bowel sounds, nl liver, spleen, non-tender, soft, No mass, No rebound or guarding Musculoskeletal: nl extremities to inspection Extremities: normal pulses, No clubbing, No cyanosis, No edema Neurological: CEO ZIFF DAVIS II-XII intact Additional Comments Bedside Glucose - 72 Hours Test 04/29/16 19:51 04/29/16 21:01 04/29/16 22:11 04/29/16 23:13 Bedside Glucose 181mg/dL (70-220) 164mg/dL (70-220) 174mg/dL (70-220) 164mg/dL (70-220) Test 04/30/16 00:16 04/30/16 01:18 04/30/16 02:13 04/30/16 03:13 Bedside Glucose 160mg/dL (70-220) 141mg/dL (70-220) 147mg/dL (70-220) 134mg/dL (70-220) Test 04/30/16 04:34 04/30/16 05:48 04/30/16 08:30 04/30/16 10:58 Bedside Glucose 127mg/dL (70-220) 129mg/dL (70-220) 144mg/dL (70-220) 192mg/dL (70-220) Test 04/30/16 11:43 04/30/16 12:43 04/30/16 14:00 04/30/16 14:48 Bedside Glucose 188mg/dL (70-220) 177mg/dL (70-220) 174mg/dL (70-220) 181mg/dL (70-220) Test 04/30/16 15:29 04/30/16 16:57 04/30/16 17:37 04/30/16 18:43 Bedside Glucose 188mg/dL (70-220) 175mg/dL (70-220) 167mg/dL (70-220) 171mg/dL (70-220) Test 04/30/16 19:25 04/30/16 21:16 04/30/16 22:16 04/30/16 23:14 Bedside Glucose 188mg/dL (70-220) 160mg/dL (70-220) 162mg/dL (70-220) 159mg/dL (70-220) Test 05/01/16 00:04 05/01/16 01:01 05/01/16 02:07 05/01/16 03:06 Bedside Glucose 152mg/dL (70-220) 141mg/dL (70-220) 150mg/dL (70-220) 151mg/dL (70-220) Test 05/01/16 05:13 05/01/16 06:53 05/01/16 08:35 05/01/16 10:25 Bedside Glucose 137mg/dL (70-220) 138mg/dL (70-220) 153mg/dL (70-220) 182mg/dL (70-220) Test 05/01/16 11:52 05/01/16 12:30 05/01/16 14:34 05/01/16 15:27 Bedside Glucose 187mg/dL (70-220) 169mg/dL (70-220) 168mg/dL (70-220) 175mg/dL (70-220) Test 05/01/16 17:07 05/01/16 18:43 05/01/16 20:17 05/01/16 22:06 Bedside Glucose 190mg/dL (70-220) 170mg/dL (70-220) 188mg/dL (70-220) 170mg/dL (70-220) Test 05/01/16 23:18 05/02/16 00:12 05/02/16 01:33 05/02/16 02:16 Bedside Glucose 161mg/dL (70-220) 164mg/dL (70-220) 157mg/dL (70-220) 160mg/dL (70-220) Test 05/02/16 03:20 05/02/16 04:39 05/02/16 06:01 05/02/16 08:27 Bedside Glucose 157mg/dL (70-220) 170mg/dL (70-220) 172mg/dL (70-220) 197mg/dL (70-220) Test 05/02/16 09:24 05/02/16 10:25 05/02/16 11:19 05/02/16 12:15 Bedside Glucose 184mg/dL (70-220) 174mg/dL (70-220) 172mg/dL (70-220) 154mg/dL (70-220) Test 05/02/16 13:00 05/02/16 14:08 05/02/16 17:26 Bedside Glucose 154mg/dL (70-220) 215mg/dL (70-220) 187mg/dL (70-220) Results Result Diagram: 05/02/16 0400 05/02/16 0400 Results 24 hrs Laboratory Tests Test 05/01/16 20:17 05/01/16 22:06 05/01/16 23:18 05/02/16 00:12 Bedside Glucose 188 170 161 164 Test 05/02/16 01:33 05/02/16 02:16 05/02/16 03:20 05/02/16 04:00 Bedside Glucose 157 160 157 Anion Gap 12 Basophils # 0.1 Basophils % 0.3 Blood Morphology Comment Blood Urea Nitrogen 19 Calcium Level 8.6 Carbon Dioxide Level 30 Chloride Level 100 Creatinine 0.51 Differential Comment AUTO w/SCAN Eosinophils # 1.1 H Eosinophils % 6.3 Glucose Level 159 Hematocrit 25.1 L Hemoglobin 8.2 L Lymphocytes # 2.3 Lymphocytes % 13.5 L Mean Corpuscular Hemoglobin 30.7 Mean Corpuscular Hemoglobin Concent 32.5 Mean Corpuscular Volume 94.6 Mean Platelet Volume 9.8 Monocytes # 2.1 H Monocytes % 12.3 H Neutrophils # 11.6 H Neutrophils % 67.6 Nucleated Red Blood Cells # 0.3 H Nucleated Red Blood Cells % 2.0 H Platelet Count 263 Potassium Level 4.0 Red Blood Count 2.66 L Red Cell Distribution Width 19.0 H Sodium Level 138 White Blood Count 17.2 H Test 05/02/16 04:39 05/02/16 06:01 05/02/16 08:27 05/02/16 09:23 Bedside Glucose 170 172 197 Lab Scanned Report REFERENCE LAB Test 05/02/16 09:24 05/02/16 10:25 05/02/16 11:19 05/02/16 12:15 Bedside Glucose 184 174 172 154 Test 05/02/16 13:00 05/02/16 14:08 05/02/16 17:26 Bedside Glucose 154 215 187 Medications Medications Current Medications Chlorhexidine Gluconate (Peridex) 15 ml Q12 MM Last administered on 05/02/16 08:16; Admin Dose 15 ML; Start 04/21/16 at 21:00 Ferrous Sulfate (Feosol Liquid Cup) 330 mg BID GTB Last administered on 08:16; Admin Dose 330 MG; Start 04/21/16 at 21:00 Lactobacillus Acidophilus/ Rhamnosus (Culturelle) 1 cap BID GTB Last administered on 05/02/16 08:17; Admin Dose 1 CAP; Start 04/21/16 at 21:00 Metoclopramide HCl (Reglan) 10 mg Q6 PRN GTB NAUSEA AND/OR VOMITING; Start 03/26 at 17:00 Multivitamins (Thera-Plus) 5 ml DAILY GTB Last administered on 05/02/16 08:16 ; Admin Dose 5 ML; Start 04/22/16 at 09:00 Miscellaneous Information 1 ea NOTE XX ; Start 04/21/16 at 17:30 Glucose (Glutose) 15 gm Q15M PRN PO DECREASED GLUCOSE; Start 04/21/16 at 17:30 Glucose (Glutose) 22.5 gm Q15M PRN PO DECREASED GLUCOSE; Start 04/21/16 at 17: 30 Dextrose (D50w Syringe) 25 ml Q15M PRN IV DECREASED GLUCOSE; Start 04/21/16 at 17:30 Dextrose (D50w Syringe) 50 ml Q15M PRN IV DECREASED GLUCOSE; Start 04/21/16 at 17:30 Glucagon (Glucagen) 1 mg Q15M PRN IM DECREASED GLUCOSE; Start 04/21/16 at 17:30 Glucose (Glutose) 15 gm Q15M PRN BUCCAL DECREASED GLUCOSE; Start 04/21/16 at 17 :30 Collagenase (Santyl) 1 applic DAILY TOP Last administered on 05/02/16 08:18; Admin Dose 1 APPLIC; Start 04/22/16 at 16:30 Nystatin 1 applic 1 applic BID TOP Last administered on 05/02/16 08:17; Admin Dose 1 APPLIC; Start 04/22/16 at 21:00 Cefepime HCl (Maxipime 1gm/50 ml (Pmx)) 50 ml @ 100 mls/hr Q12 IVPB Last administered on 05/02/16 09:28; Admin Dose 100 MLS/HR; Start 04/23/16 at 21:00 Lansoprazole (Prevacid) 30 mg DAILY@06 GTB Last administered on 05/02/16 05:11 ; Admin Dose 30 MG; Start 04/25/16 at 06:00 Fentanyl (Duragesic 50 Mcg/Hr Patch) 1 patch Q72H TRANSDERM Last administered on 04/30/16 00:18; Admin Dose 1 PATCH; Start 04/26/16 at 22:30 Lorazepam (Ativan) 1 mg Q2HWA PRN PEG Anxiety Last administered on 04/27/16 23 :40; Admin Dose 1 MG; Start 04/26/16 at 22:30 Clonazepam (Klonopin) 0.5 mg Q8 GTB Last administered on 05/02/16 13:46; Admin Dose 0.5 MG; Start 04/27/16 at 06:00 Acetaminophen (Tylenol Liquid) 650 mg Q6H PRN NGT PAIN AND OR ELEVATED TEMP Last administered on 05/02/16 13:48; Admin Dose 650 MG; Start 04/27/16 at 04:30 Amikacin Sulfate (Amikacin Iv Per Pharmacy) AMIKACIN PER PHARMACY NOTE XX ; Start 04/27/16 at 13:00 IV Flush 10 ml 10 ml PRN PRN IV IV PROTOCOL; Start 04/27/16 at 17:30 Amikacin Sulfate/ Sodium Chloride (Amikacin/NS) 104 ml @ 104 mls/hr Q36H IVPB Last administered on 05/02/16 03:19; Admin Dose 104 MLS/HR; Start 04/29/16 at 03:00 Insulin Aspart (Novolog Insulin Pen) NOVOLOG *MODERATE* ALGORI... Q4 SC Last administered on 05/02/16 18:30; Admin Dose 4 UNIT; Start 05/02/16 at 17:00 Insulin Glargine (Lantus) 28 unit QAM SC ; Start 1/24/17 at 09:00 ELINA CORBETT MD May 02, 2016 19:24
[2016-05-02] MEDS: NPH, HUMAN INSULIN ISOPHANE 3ML VIAL SC SCH (21:57)
[2016-05-02] MEDS: FENTAnyl PATCH 50 MCG/HR TRANSDERM SCH (23:34)
[2016-05-03] VITALS (35 sets, daily range): BP systolic 83–103; BP diastolic 51–68; PULSE 96–128; RESP 18–35
[2016-05-03] MEDS: INSULIN ASPART [NOVOLOG] 3 ML PEN SC SCH ×6 (01:32→20:35)
[2016-05-03] MEDS: ACETYLCYSTEINE 20% 4 ML VIAL NEB SCH ×4 (01:36→20:30)
[2016-05-03] MEDS: LEVALBUTEROL (NEB) 0.63 MG/3 ML AMP HHN PRN ×4 (01:36→20:30)
[2016-05-03] MEDS: ACETAMINOPHEN 650MG/20.3ML CUP NGT PRN (02:48)
[2016-05-03] MEDS: ALTEPLASE (CATHFLO) 2 MG INJ CATHETER PRN ×3 (04:10→10:26)
[2016-05-03] MEDS: clonAZEPAM 0.5 MG TAB GTB SCH ×3 (05:24→22:17)
[2016-05-03] MEDS: LANSOPRAZOLE 30 MG CAP GTB SCH (05:24)
[2016-05-03] MEDS: NPH, HUMAN INSULIN ISOPHANE 3ML VIAL SC SCH ×4 (05:31→22:21)
[2016-05-03 06:58] LABS: POTASSIUM 4.3 mmol/L (3.5-5.1)
[2016-05-03 07:00] LABS: CREATININE 0.67 mg/dl (0.44-1.00)
[2016-05-03 07:02] LABS: CALCIUM 8.7 mg/dl (8.4-10.2); MAGNESIUM 2.3 mg/dl (1.7-2.5)
[2016-05-03 07:31] LABS: BASOPHILS % 0.1 % (0.0-2.0); EOSINOPHILS # 0.7 10^3/ul (0.0-0.5); EOSINOPHILS % 2.9 % (0.0-7.0); HEMATOCRIT 27.2 % (37.0-47.0); HEMOGLOBIN 9.1 g/dl (12.0-16.0); LYMPHOCYTES # 2.1 10^3/ul (0.8-2.9); MEAN CORPUSCULAR HGB CONC 33.3 g/dl (32.0-37.0); MEAN CORPUSCULAR VOLUME 93.2 fl (82.0-101.0); MEAN PLATELET VOLUME 9.5 fl (7.4-10.4); MONOCYTE # 1.7 10^3/ul (0.3-0.9); MONOCYTES % 7.4 % (0.0-11.0); NEUTROPHIL # 18.6 10^3/ul (1.6-7.5); NEUTROPHILS % 80.6 % (39.0-77.0); PLATELET COUNT 294 10^3/UL (140-440); RED BLOOD COUNT 2.92 10^6/ul (4.20-5.40); RED CELL DISTRIBUTION WIDTH 19.5 % (11.5-14.5)
[2016-05-03 07:50] LABS: CONDITION 1; LH ANALYZER COMMENTS 1; SUSPECT 1
[2016-05-03] MEDS: FERROUS SULFATE 60 MG/ML 5ML CUP GTB SCH ×2 (08:29→20:20)
[2016-05-03] MEDS: MULTIVITAMINS 5 ML CUP GTB SCH (08:29)
[2016-05-03] MEDS: LACTOBACILLUS RHAMNOSUS CAP GTB SCH ×2 (08:29→20:20)
[2016-05-03] MEDS: CHLORHEXIDINE GLUCONATE 15 ML UD CUP MM SCH ×2 (08:29→20:20)
[2016-05-03] MEDS: COLLAGENASE 30 GM TUBE TOP SCH (08:33)
[2016-05-03] MEDS: NYSTATIN 30 GM POWDER BTL TOP SCH ×2 (08:34→20:33)
[2016-05-03] MEDS: CEFEPIME 1GM/50 ML (PMX) 50 ML IVPB SCH (08:39)
[2016-05-03] MEDS ORDERED: INSULIN GLARGINE [LANtus] 3 ML PEN SC SCH (09:00)
[2016-05-03] MEDS ORDERED: NORepinephrine 8MG/250 ML (PMX 250 ML IV SCH (10:30)
[2016-05-03] MEDS ORDERED: SOD CHLORIDE 0.9% 250 ML IV ONE (10:30)
--- NOTE | 2016-05-03 11:18 | CONS ---
Date/Time of Note Date/Time of Note DATE: 05/03/16 TIME: 11:16 Consult Date/Type/Reason Admit Date/Time Apr 21, 2016 at 10:39 Type of Consultation: pulmonary Ordering Provider: DELIO GUILLERMO Subjective Patient remains clinically unchanged. Now off insulin drip. Remains hemodynamically stable Objective Vital Signs Date Time Temp Pulse Resp B/P Pulse Ox O2 Delivery O2 Flow Rate FiO2 05/03/16 11:00 112 27 90/51 99 Mechanical Ventilator 05/03/16 08:30 30 05/03/16 08:00 98.4 Intake and Output 05/02/16 05/02/16 05/03/16 14:59 22:59 06:59 Intake Total 709 ml 410 ml 740 ml Output Total 335 ml 220 ml 350 ml Balance 374 ml 190 ml 390 ml PHYSICAL EXAMINATION: VITAL SIGNS: As above HEENT: Pupils are equal and reactive to light. NECK: Supple, no JVD noted, no cervical adenopathy, no carotid bruits heard. Tracheostomy site clear. LUNGS: Decreased breath sounds at the bases. CARDIOVASCULAR: S1, S2 normal. ABDOMEN: Soft, obese, nontender, no organomegaly or masses noted. EXTREMITIES: No clubbing or cyanosis noted. NEUROLOGIC: Encephalopathic. Results/Medications Result Diagram: 05/03/1622 05/03/16 0622 Results 24 hrs Laboratory Tests Test 05/02/16 11:19 05/02/16 12:15 05/02/16 13:00 05/02/16 14:08 Bedside Glucose 172 154 154 215 Test 05/02/16 17:26 05/02/16 21:32 05/03/16 01:29 05/03/16 05:23 Bedside Glucose 187 228 H 265 H 260 H Test 05/03/16 06:22 05/03/16 08:29 Anion Gap 11 Basophils # 0.0 Basophils % 0.1 Blood Morphology Comment Blood Urea Nitrogen 23 H Calcium Level 8.7 Carbon Dioxide Level 31 Chloride Level 98 Creatinine 0.67 Eosinophils # 0.7 H Eosinophils % 2.9 Glucose Level 228 H Hematocrit 27.2 L Hemoglobin 9.1 L Lymphocytes # 2.1 Lymphocytes % 9.0 L Magnesium Level 2.3 Mean Corpuscular Hemoglobin 31.0 Mean Corpuscular Hemoglobin Concent 33.3 Mean Corpuscular Volume 93.2 Mean Platelet Volume 9.5 Monocytes # 1.7 H Monocytes % 7.4 Neutrophils # 18.6 H Neutrophils % 80.6 H Nucleated Red Blood Cells # 0.0 Nucleated Red Blood Cells % 0.0 Phosphorus Level 3.0 Platelet Count 294 Potassium Level 4.3 Red Blood Count 2.92 L Red Cell Distribution Width 19.5 H Sodium Level 136 White Blood Count 23.0 #H Bedside Glucose 260 H Medications Current Medications Chlorhexidine Gluconate (Peridex) 15 ml Q12 MM Last administered on 05/03/16 08:29; Admin Dose 15 ML; Start 04/21/16 at 21:00 Ferrous Sulfate (Feosol Liquid Cup) 330 mg BID GTB Last administered on 08:29; Admin Dose 330 MG; Start 04/21/16 at 21:00 Lactobacillus Acidophilus/ Rhamnosus (Culturelle) 1 cap BID GTB Last administered on 05/03/16 08:29; Admin Dose 1 CAP; Start 04/21/16 at 21:00 Metoclopramide HCl (Reglan) 10 mg Q6 PRN GTB NAUSEA AND/OR VOMITING; Start 03/26 at 17:00 Multivitamins (Thera-Plus) 5 ml DAILY GTB Last administered on 05/03/16 08:29 ; Admin Dose 5 ML; Start 04/22/16 at 09:00 Miscellaneous Information 1 ea NOTE XX ; Start 04/21/16 at 17:30 Glucose (Glutose) 15 gm Q15M PRN PO DECREASED GLUCOSE; Start 04/21/16 at 17:30 Glucose (Glutose) 22.5 gm Q15M PRN PO DECREASED GLUCOSE; Start 04/21/16 at 17: 30 Dextrose (D50w Syringe) 25 ml Q15M PRN IV DECREASED GLUCOSE; Start 04/21/16 at 17:30 Dextrose (D50w Syringe) 50 ml Q15M PRN IV DECREASED GLUCOSE; Start 04/21/16 at 17:30 Glucagon (Glucagen) 1 mg Q15M PRN IM DECREASED GLUCOSE; Start 04/21/16 at 17:30 Glucose (Glutose) 15 gm Q15M PRN BUCCAL DECREASED GLUCOSE; Start 04/21/16 at 17 :30 Collagenase (Santyl) 1 applic DAILY TOP Last administered on 05/03/16 08:33; Admin Dose 1 APPLIC; Start 04/22/16 at 16:30 Nystatin 1 applic 1 applic BID TOP Last administered on 05/03/16 08:34; Admin Dose 1 APPLIC; Start 04/22/16 at 21:00 Cefepime HCl (Maxipime 1gm/50 ml (Pmx)) 50 ml @ 100 mls/hr Q12 IVPB Last administered on 05/03/16 08:39; Admin Dose 100 MLS/HR; Start 04/23/16 at 21:00 Lansoprazole (Prevacid) 30 mg DAILY@06 GTB Last administered on 05/03/16 05:24 ; Admin Dose 30 MG; Start 04/25/16 at 06:00 Fentanyl (Duragesic 50 Mcg/Hr Patch) 1 patch Q72H TRANSDERM Last administered on 05/02/16 23:34; Admin Dose 1 PATCH; Start 04/26/16 at 22:30 Lorazepam (Ativan) 1 mg Q2HWA PRN PEG Anxiety Last administered on 04/27/16 23 :40; Admin Dose 1 MG; Start 04/26/16 at 22:30 Clonazepam (Klonopin) 0.5 mg Q8 GTB Last administered on 05/03/16 05:24; Admin Dose 0.5 MG; Start 04/27/16 at 06:00 Acetaminophen (Tylenol Liquid) 650 mg Q6H PRN NGT PAIN AND OR ELEVATED TEMP Last administered on 05/03/16 02:48; Admin Dose 650 MG; Start 04/27/16 at 04:30 Amikacin Sulfate (Amikacin Iv Per Pharmacy) AMIKACIN PER PHARMACY NOTE XX ; Start 04/27/16 at 13:00 IV Flush 10 ml 10 ml PRN PRN IV IV PROTOCOL; Start 04/27/16 at 17:30 Amikacin Sulfate/ Sodium Chloride (Amikacin/NS) 104 ml @ 104 mls/hr Q36H IVPB Last administered on 05/02/16 03:19; Admin Dose 104 MLS/HR; Start 04/29/16 at 03:00 Insulin Aspart (Novolog Insulin Pen) NOVOLOG *MODERATE* ALGORI... Q4 SC Last administered on 05/03/16 08:32; Admin Dose 6 UNIT; Start 05/02/16 at 17:00 Insulin Human NPH (Humulin N) 18 unit Q8 SC Last administered on 05/03/16 05: 31; Admin Dose 18 UNIT; Start 05/02/16 at 22:00 Carvedilol 3.125 mg 3.125 mg BID GTB ; Start 05/03/16 at 09:00 Sodium Chloride 250 ml @ 250 mls/hr Q1H ONCE IV Last administered on 10:43; Admin Dose 250 MLS/HR; Start 05/03/16 at 10:30; Stop 05/03/16 at 11: 29 Norepinephrine (Levophed) 250 ml @ 1.875 mls/ hr TITRATE IV ; Start 05/03/16 at 10:30 Assessment/Plan Chief Complaint/Hosp Course IMPRESSION: 1. Ventilator-dependent respiratory failure, hypoxemic. 2. Tracheostomy dependent. 3. Pneumonia. 4. Anemia, status post esophagogastroduodenoscopy and colonoscopy. 5. Chronic encephalopathy. 6. History of diabetes mellitus. 7. Hypertension. 8. Craniotomy history. 9. History of congestive heart failure. 10. History of hypertension. 11. Anemia. RECOMMENDATIONS: 1. Continue vent support. 2. Gastrointestinal followup. 3. Glycemic management per Endocrinology recommendations 4. Proton pump inhibitor. 5. Transfer to telemetry, consider Grant evaluation Problems: JORDON MONSON MD, [facility] May 03, 2016 11:17
[2016-05-03] MEDS ORDERED: VANCOMYCIN 1 GM (PMX) 250 ML IVPB SCH (13:30)
[2016-05-03] MEDS ORDERED: FLUCONAZOLE 100 MG TAB PO ONE (13:30)
[2016-05-03] MEDS: metroNIDAZOLE 500 MG TAB NGT SCH ×2 (13:43→22:17)
--- NOTE | 2016-05-03 14:53 | PN ---
Date/Time of Note Date/Time of Note DATE: 05/03/16 TIME: 14:43 Assessment/Plan VTE Prophylaxis VTE Prophylaxis Intervention: SCD's Lines/Catheters IV C[facility]ter Type (from [facility] PICC Line Central line still needed: Yes Urinary Cath still in place: Yes Reason Cath still needed: urinary retention Assessment/Plan Chief Complaint/Hosp Course ASSESSMENT AND PLAN: - Acute on chronic ventilator dependent respiratory failure. Patient is continued on ventilator support. Dr. Mcbride is following in pulmonology consultation. Continue ventilator support and bronchodilators. - Healthcare-acquired pneumonia. Dr. Hernadez is following the patient in an infectious disease consultation. Continue antibiotics per ID. - Diabetes mellitus type [address] Tyler endocrinology consult is appreciated. - Anemia, gastritis, gastric ulcer and ischemic ulcer in the colon. The patient is status post esophagogastroduodenoscopy and colonoscopy by Dr. Dowd. Continue PPI. - Multiple wounds. Continue current wound care, offloading. - Chronic encephalopathy with history of craniotomy. Continue to monitor. - Congestive heart failure by history. Continue to monitor intake and output. - Dysphagia with PEG, continue G-tube feeding. Continue sequential compression device for deep venous thrombosis prophylaxis and Prevacid for peptic ulcer disease prophylaxis. Further recommendations based on clinical course. Plan of care discussed with Dr. Suarez. Problems: Subjective 24 Hr Interval Summary Free Text/Dictation Patient is off insulin drip, hypotensive, status post IV fluid bolus, with slight improvement in BP, no fever per RN. Exam/Review of Systems Vital Signs Vitals Vital Signs Date Time Temp Pulse Resp B/P Pulse Ox O2 Delivery O2 Flow Rate FiO2 05/03/16 12:00 113 05/03/16 11:30 30 100 30 05/03/16 11:00 90/51 Mechanical Ventilator 05/03/16 08:00 98.4 Intake and Output 05/02/16 05/02/16 05/03/16 15:00 23:00 07:00 Intake Total 769 ml 410 ml 740 ml Output Total 370 ml 225 ml 340 ml Balance 399 ml 185 ml 400 ml Exam GENERAL: Well-developed, obese female currently tracheostomy to ventilator support, is lethargic. HEENT: Head is atraumatic, normocephalic. NECK: Supple, no JVD. The patient has a tracheostomy at the base of the neck. LUNGS: Diminished at the bases, scattered rhonchi bilaterally. HEART: Normal S1, S2. The patient is tachycardic. No murmurs, gallops, clicks , rubs noted. ABDOMEN: Protuberant, soft, nondistended, nontender. G-tube in place. EXTREMITIES: No edema. NEUROLOGIC: Patient is lethargic. Results Result Diagram: 05/03/16 0622 05/03/16 0622 Results 24 hrs Laboratory Tests Test 05/02/16 17:26 05/02/16 21:32 05/03/16 01:29 05/03/16 05:23 Bedside Glucose 187 228 H 265 H 260 H Test 05/03/16 06:22 05/03/16 08:29 05/03/16 13:03 Anion Gap 11 Basophils # 0.0 Basophils % 0.1 Blood Morphology Comment Blood Urea Nitrogen 23 H Calcium Level 8.7 Carbon Dioxide Level 31 Chloride Level 98 Creatinine 0.67 Eosinophils # 0.7 H Eosinophils % 2.9 Glucose Level 228 H Hematocrit 27.2 L Hemoglobin 9.1 L Lymphocytes # 2.1 Lymphocytes % 9.0 L Magnesium Level 2.3 Mean Corpuscular Hemoglobin 31.0 Mean Corpuscular Hemoglobin Concent 33.3 Mean Corpuscular Volume 93.2 Mean Platelet Volume 9.5 Monocytes # 1.7 H Monocytes % 7.4 Neutrophils # 18.6 H Neutrophils % 80.6 H Nucleated Red Blood Cells # 0.0 Nucleated Red Blood Cells % 0.0 Phosphorus Level 3.0 Platelet Count 294 Potassium Level 4.3 Red Blood Count 2.92 L Red Cell Distribution Width 19.5 H Sodium Level 136 White Blood Count 23.0 #H Bedside Glucose 260 H 271 H Medications Medications Current Medications Chlorhexidine Gluconate (Peridex) 15 ml Q12 MM Last administered on 05/03/16 08:29; Admin Dose 15 ML; Start 04/21/16 at 21:00 Ferrous Sulfate (Feosol Liquid Cup) 330 mg BID GTB Last administered on 08:29; Admin Dose 330 MG; Start 04/21/16 at 21:00 Lactobacillus Acidophilus/ Rhamnosus (Culturelle) 1 cap BID GTB Last administered on 05/03/16 08:29; Admin Dose 1 CAP; Start 04/21/16 at 21:00 Metoclopramide HCl (Reglan) 10 mg Q6 PRN GTB NAUSEA AND/OR VOMITING; Start 03/26 at 17:00 Multivitamins (Thera-Plus) 5 ml DAILY GTB Last administered on 05/03/16 08:29 ; Admin Dose 5 ML; Start 04/22/16 at 09:00 Miscellaneous Information 1 ea NOTE XX ; Start 04/21/16 at 17:30 Glucose (Glutose) 15 gm Q15M PRN PO DECREASED GLUCOSE; Start 04/21/16 at 17:30 Glucose (Glutose) 22.5 gm Q15M PRN PO DECREASED GLUCOSE; Start 04/21/16 at 17: 30 Dextrose (D50w Syringe) 25 ml Q15M PRN IV DECREASED GLUCOSE; Start 04/21/16 at 17:30 Dextrose (D50w Syringe) 50 ml Q15M PRN IV DECREASED GLUCOSE; Start 04/21/16 at 17:30 Glucagon (Glucagen) 1 mg Q15M PRN IM DECREASED GLUCOSE; Start 04/21/16 at 17:30 Glucose (Glutose) 15 gm Q15M PRN BUCCAL DECREASED GLUCOSE; Start 04/21/16 at 17 :30 Collagenase (Santyl) 1 applic DAILY TOP Last administered on 05/03/16 08:33; Admin Dose 1 APPLIC; Start 04/22/16 at 16:30 Nystatin (Nystatin Powder) 1 applic BID TOP Last administered on 05/03/16 08: 34; Admin Dose 1 APPLIC; Start 04/22/16 at 21:00 Lansoprazole (Prevacid) 30 mg DAILY@06 GTB Last administered on 05/03/16 05:24 ; Admin Dose 30 MG; Start 04/25/16 at 06:00 Fentanyl (Duragesic 50 Mcg/Hr Patch) 1 patch Q72H TRANSDERM Last administered on 05/02/16 23:34; Admin Dose 1 PATCH; Start 04/26/16 at 22:30 Lorazepam (Ativan) 1 mg Q2HWA PRN PEG Anxiety Last administered on 04/27/16 23 :40; Admin Dose 1 MG; Start 04/26/16 at 22:30 Clonazepam (Klonopin) 0.5 mg Q8 GTB Last administered on 05/03/16 13:11; Admin Dose 0.5 MG; Start 04/27/16 at 06:00 Acetaminophen (Tylenol Liquid) 650 mg Q6H PRN NGT PAIN AND OR ELEVATED TEMP Last administered on 05/03/16 02:48; Admin Dose 650 MG; Start 04/27/16 at 04:30 Amikacin Sulfate (Amikacin Iv Per Pharmacy) AMIKACIN PER PHARMACY NOTE XX ; Start 04/27/16 at 13:00 IV Flush 10 ml 10 ml PRN PRN IV IV PROTOCOL; Start 04/27/16 at 17:30 Amikacin Sulfate/ Sodium Chloride (Amikacin/NS) 104 ml @ 104 mls/hr Q36H IVPB Last administered on 05/02/16 03:19; Admin Dose 104 MLS/HR; Start 04/29/16 at 03:00 Insulin Aspart (Novolog Insulin Pen) NOVOLOG *MODERATE* ALGORI... Q4 SC Last administered on 05/03/16 13:06; Admin Dose 8 UNIT; Start 05/02/16 at 17:00 Carvedilol 3.125 mg 3.125 mg BID GTB ; Start 05/03/16 at 09:00 Norepinephrine (Levophed) 250 ml @ 1.875 mls/ hr TITRATE IV ; Start 05/03/16 at 10:30 Fluconazole 100 mg 100 mg DAILY PO ; Start 05/04/16 at 09:00 Vancomycin HCl (Vancocin) 250 ml @ 125 mls/hr ONCE IVPB ; Start 05/03/16 at 13: 30; Stop 05/03/16 at 15:29 Metronidazole (Flagyl) 500 mg Q8 NGT Last administered on 05/03/16 13:43; Admin Dose 500 MG; Start 05/03/16 at 14:00 Insulin Human NPH (Humulin N) 24 unit Q8 SC Last administered on 05/03/16 14: 37; Admin Dose 24 UNIT; Start 05/03/16 at 14:00 DELIO GUILLERMO May 03, 2016 14:53
--- NOTE | 2016-05-03 14:59 | PN ---
DATE: 05/03/2016 INFECTIOUS DISEASE PROGRESS NOTE SUBJECTIVE: No acute changes. The patient is lying comfortably in bed. VITAL SIGNS: T-max 100.8, T-current 98.4, pulse 115, respirations 20, blood pressure 90/51, saturat ion 100 on 30 FIO2. LABORATORY DATA: WBC 23, H and H 9.1 and 27.2, platelets 294, neutrophils 80.6, BUN 23, creatinine 0.67. ANTIMICROBIALS: The patient is on: 1. Cefepime. 2. Amikacin. INDWELLINGS: Trach, PEG, Rivera, PICC line. PHYSICAL EXAMINATION: GENERAL: This is a chronically ill-appearing, elderly woman who is in no distress. HEENT: Head atraumatic, normocephalic. Sclerae anicteric. Buccal mucosa dry. NECK: Supple, tracheostomy present. CHEST: Rise symmetrical. Breath sounds diminished to bases. HEART: S1, S2. ABDOMEN: Soft, obese. Bowel sounds present. EXTREMITIES: Without cyanosis. ASSESSMENT: 1. Systemic inflammatory response syndrome with persistent leukocytosis and on and off low-grade fe vers. 2. Healthcare-associated pneumonia. 3. Diabetes, off insulin drip and now followed by endocrinology. 4. Chronic encephalopathy with a history of craniotomy. 5. Anemia, status post EGD with colonoscopy. 6. Dysphagia. PLAN: The patient remains clinically unchanged. Etiology of her fevers and leukocytosis unclear. Her blood cultures have been negative since admission. We are going to repeat cultures and send uri ne for culture. Discontinue cefepime. Start empiric antifungal coverage. Add Flagyl for anaerobic coverage and give a dose of vancomycin. Follow chest x-ray in a.m. Follow recommendation of consu ltants. Dictated By: JEFF SERNA TRAIN RESERVATION CLERK for [employer]/NTS Conf#: [id number] DID#: [id number]
--- NOTE | 2016-05-03 15:35 | RADRPT ---
PROCEDURE: US bilateral lower extremity veins. CLINICAL INDICATION: Bilateral leg pain and swelling. TECHNIQUE: Multiple longitudinal and transverse images of the bilateral lower extremity veins were obtained with ulrich scale and color Doppler imaging. The common femoral vein, femoral vein, and popl iteal vein were evaluated. 2D grayscale measurements with compression sonography, color Doppler, and pulsed Doppler with augmentation. COMPARISON: No prior studies are available for comparison. FINDINGS: The bilateral common femoral, femoral and popliteal veins are normally compressible throughout. Col or flow demonstrates normal filling of the vessels. Normal waveforms are visualized and there is no rmal response to augmentation. IMPRESSION: 1. No evidence of deep vein thrombosis involving either lower extremity. RPTAT: QQ .Pete Cruz MD, MD Date Time Electronically viewed and signed by .Pete Cruz MD, on 05/03/2016 15:35 .R/
--- NOTE | 2016-05-03 16:21 | RADRPT ---
PROCEDURE: XR Chest. CLINICAL INDICATION: Pneumonia TECHNIQUE: Single AP portable chest. COMPARISON: 04/27/2016 FINDINGS: The cardiomediastinal silhouette is within normal limits.. Small of pleural effusion with mild vascu lar congestion. No focal consolidation. Tracheostomy tube in place. No pneumothorax. The osseous structures and soft tissues are unremarkable. IMPRESSION: Mild vascular congestion and left pleural effusion suggestive of CHF. Superimposed infiltrate canno t be excluded.. RPTAT:AAJJ Joel Winslow Physician Date Time Electronically viewed and signed by Physician Macario on 05/03/2016 16:21 NIDHI/
--- NOTE | 2016-05-03 16:23 | RADRPT ---
PROCEDURE: US bilateral upper extremity veins. CLINICAL INDICATION: Bilateral upper extremity pain and swelling. TECHNIQUE: Multiple longitudinal and transverse images of the bilateral upper extremity venous ameena e was obtained with ulrich scale and color Doppler imaging. COMPARISON: None available FINDINGS: The right internal jugular, subclavian, axillary, brachial, basilic, radial, and ulnar veins are pat ent bilaterally. There is normal flow with augmentation and compressibility throughout. There is th rombosis of the right cephalic vein with lack of flow and lack of compressibility. The left internal jugular, axillary, brachial, and basilic veins are patent bilaterally. There is no rmal flow with augmentation and compressibility throughout. There is thrombosis of the left subclav kaleigh and cephalic veins with lack of flow and lack of compressibility. There is a left arm PICC line entering via the basilic vein. IMPRESSION: 1. Thrombosis of the right cephalic vein. 2. 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 3. Left arm PICC line entering via the basilic vein. RPTAT: QQ .Pete Cruz MD, Date Time Electronically viewed and signed by .Pete Cruz MD, on 05/03/2016 16:23 .R/
[2016-05-03] MEDS: AMIKACIN 1,000 MG in SOD CHLORIDE 0.9% 100 ML IVPB SCH (16:41)
--- NOTE | 2016-05-03 18:27 | CONS ---
Date/Time of Note Date/Time of Note DATE: 05/03/16 TIME: 18:24 Assessment/Plan Assessment/Plan Problems: (1) Type 2 diabetes mellitus with other specified complication Status: Chronic Comment: BG uncontrolled on NPH 18 units sq q8. Increased to 24 units this afternoon. Reeval BG levels tomorrow. Consultation Date/Type/Reason Admit Date/Time Apr 21, 2016 at 10:39 Initial Consult Date 05/02/16 Type of Consultation: endocrinology Reason for Consultation T2DM management Referring Provider: DELIO GUILLERMO 24 HR Interval Summary Subjective hx not possible: pt non-verbal Exam/Review of Systems Vital Signs Vitals VS - Last 72 Hours, by Label Date Time Temp Pulse Resp B/P Pulse Ox O2 Delivery O2 Flow Rate FiO2 05/03/16 17:30 104 26 100 30 05/03/16 17:00 104 21 93/55 100 Mechanical Ventilator 05/03/16 16:00 98.0 106 24 96/63 100 Mechanical Ventilator 05/03/16 16:00 105 05/03/16 15:30 106 19 100 30 05/03/16 15:00 111 25 101/64 99 Mechanical Ventilator 05/03/16 14:00 108 18 85/63 100 Mechanical Ventilator 05/03/16 13:30 111 22 100 30 05/03/16 12:00 113 05/03/16 12:00 98.0 114 22 86/54 100 Mechanical Ventilator 05/03/16 11:30 115 30 100 30 05/03/16 11:00 112 27 90/51 99 Mechanical Ventilator 05/03/16 10:00 112 27 84/56 100 Mechanical Ventilator 05/03/16 09:30 111 24 100 30 05/03/16 09:00 114 23 84/58 100 Mechanical Ventilator 05/03/16 08:30 30 05/03/16 08:00 98.4 115 23 83/58 100 Mechanical Ventilator 05/03/16 08:00 118 05/03/16 08:00 115 24 100 30 05/03/16 07:04 119 23 94/59 100 Mechanical Ventilator 05/03/16 06:00 120 25 93/67 99 Mechanical Ventilator 05/03/16 05:30 115 25 99 30 05/03/16 05:00 120 27 94/62 99 Mechanical Ventilator 05/03/16 04:00 98.7 120 26 91/63 100 Mechanical Ventilator 05/03/16 04:00 121 05/03/16 03:30 121 29 100 30 05/03/16 03:00 123 30 88/58 99 Mechanical Ventilator 05/03/16 02:00 125 35 87/54 100 Mechanical Ventilator 05/03/16 01:35 126 29 99 30 05/03/16 01:00 122 32 103/66 99 Mechanical Ventilator 05/03/16 00:39 100.8 121 26 101/68 100 Mechanical Ventilator 05/03/16 00:00 125 05/02/16 23:25 128 28 100 30 05/02/16 23:00 129 31 92/58 100 Mechanical Ventilator 05/02/16 22:00 136 29 111/65 100 Mechanical Ventilator 05/02/16 21:30 129 26 100 30 05/02/16 21:00 133 28 107/63 99 Mechanical Ventilator 05/02/16 20:00 99.8 127 24 115/103 100 Mechanical Ventilator 05/02/16 20:00 128 05/02/16 20:00 30 05/02/16 19:50 127 30 100 30 05/02/16 19:00 126 23 103/64 100 05/02/16 18:00 124 34 113/74 100 Mechanical Ventilator 05/02/16 17:13 117 28 100 30 05/02/16 17:00 114 25 107/67 100 Mechanical Ventilator 05/02/16 16:00 99.2 114 30 124/70 100 Mechanical Ventilator 05/02/16 16:00 118 05/02/16 15:00 114 25 114/65 95 Mechanical Ventilator 05/02/16 14:45 114 18 99 30 05/02/16 14:00 127 35 160/70 97 Mechanical Ventilator 05/02/16 13:01 116 18 99 30 05/02/16 13:00 116 21 110/62 98 Mechanical Ventilator 05/02/16 12:00 98.4 114 23 96/64 98 Mechanical Ventilator 05/02/16 12:00 114 05/02/16 11:45 113 25 99 30 05/02/16 11:00 114 23 98/64 98 Mechanical Ventilator 05/02/16 10:00 116 21 112/62 98 Mechanical Ventilator 05/02/16 09:47 117 22 100 30 05/02/16 09:00 98.0 116 21 108/62 98 Mechanical Ventilator 05/02/16 08:37 117 33 99 30 1/23/17 08:10 30 05/02/16 08:00 114 05/02/16 08:00 115 24 116/55 98 Mechanical Ventilator 05/02/16 07:00 117 26 109/75 98 Mechanical Ventilator 05/02/16 06:00 122 24 87/64 100 05/02/16 05:47 117 26 100 30 05/02/16 05:00 118 22 108/49 100 Mechanical Ventilator 05/02/16 04:00 98.3 112 23 116/75 100 Mechanical Ventilator 05/02/16 04:00 113 05/02/16 03:52 116 26 100 30 05/02/16 03:00 120 23 111/63 100 Mechanical Ventilator 05/02/16 02:00 124 20 100 Mechanical Ventilator 05/02/16 01:47 116 28 100 30 05/02/16 01:40 113 25 100 30 05/02/16 01:00 120 21 129/64 100 Mechanical Ventilator 05/02/16 00:00 98.3 116 21 108/55 98 Mechanical Ventilator 05/02/16 00:00 114 05/01/16 23:31 114 22 97 30 05/01/16 23:00 116 22 110/55 94 Mechanical Ventilator 05/01/16 22:00 121 20 110/51 100 Mechanical Ventilator 05/01/16 21:47 114 23 97 30 05/01/16 21:00 119 26 110/65 95 Mechanical Ventilator 05/01/16 20:25 116 23 100 30 05/01/16 20:00 120 05/01/16 20:00 120 24 118/66 97 Mechanical Ventilator 05/01/16 20:00 30 05/01/16 19:41 115 23 96 30 05/01/16 19:00 98.9 121 25 104/63 98 05/01/16 17:30 113 24 118/68 98 Mechanical Ventilator 05/01/16 17:05 120 26 98 30 05/01/16 17:00 120 22 97 05/01/16 16:30 114 26 135/74 78 Mechanical Ventilator 05/01/16 16:00 117 05/01/16 16:00 98.0 118 29 98 05/01/16 15:30 113 17 95/28 100 Mechanical Ventilator 05/01/16 15:15 115 21 100 30 05/01/16 15:00 115 25 131/63 05/01/16 14:30 114 18 116/59 05/01/16 14:00 119 22 146/60 98 05/01/16 13:30 114 28 129/52 05/01/16 13:05 113 22 100 30 05/01/16 13:00 113 31 115/58 Mechanical Ventilator 05/01/16 12:30 120 126/72 97 05/01/16 12:00 98.9 112 22 131/63 99 Mechanical Ventilator 05/01/16 12:00 113 05/01/16 11:30 110 26 133/71 100 Mechanical Ventilator 05/01/16 11:10 109 26 100 30 05/01/16 11:00 112 24 121/64 100 Mechanical Ventilator 05/01/16 10:30 118 21 125/69 99 Mechanical Ventilator 05/01/16 10:00 110 25 124/72 Mechanical Ventilator 05/01/16 09:30 115 28 100 30 05/01/16 09:30 115 22 118/66 99 Mechanical Ventilator 05/01/16 09:00 115 25 141/70 Mechanical Ventilator 05/01/16 08:30 114 25 135/72 97 Mechanical Ventilator 05/01/16 08:00 98.6 112 18 116/58 Mechanical Ventilator 05/01/16 08:00 30 05/01/16 08:00 120 05/01/16 07:45 111 20 98 30 05/01/16 07:30 115 30 135/68 98 Mechanical Ventilator 05/01/16 07:00 114 23 123/70 Mechanical Ventilator 05/01/16 06:00 110 27 130/67 Mechanical Ventilator 05/01/16 05:08 117 26 100 30 05/01/16 04:30 122 25 128/76 100 Mechanical Ventilator 05/01/16 04:00 110 05/01/16 04:00 99.6 114 25 139/79 Mechanical Ventilator 05/01/16 03:30 113 29 132/71 05/01/16 03:03 115 24 100 30 05/01/16 03:00 114 31 123/72 Mechanical Ventilator 05/01/16 02:30 120 23 139/81 97 05/01/16 02:00 123 22 137/74 98 Mechanical Ventilator 05/01/16 01:40 119 24 100 30 05/01/16 01:30 122 21 162/92 100 05/01/16 01:00 119 25 143/87 Mechanical Ventilator 05/01/16 00:30 112 29 134/69 05/01/16 00:00 20 126/72 Mechanical Ventilator 04/30/16 23:30 123 26 126/87 04/30/16 23:17 118 26 100 30 04/30/16 23:00 114 26 116/75 100 Mechanical Ventilator 04/30/16 22:30 113 24 145/72 100 04/30/16 22:00 118 30 152/77 100 Mechanical Ventilator 04/30/16 21:30 112 28 140/82 100 04/30/16 21:00 111 27 99 30 04/30/16 21:00 113 28 145/68 Mechanical Ventilator 04/30/16 20:30 110 25 135/74 100 04/30/16 20:00 112 04/30/16 20:00 40 04/30/16 20:00 113 28 141/76 99 Mechanical Ventilator 04/30/16 19:30 110 21 155/84 100 04/30/16 19:24 109 29 100 30 04/30/16 19:00 99.8 110 28 145/78 100 Mechanical Ventilator Vital Signs Date Time Temp Pulse Resp B/P Pulse Ox O2 Delivery O2 Flow Rate FiO2 05/03/16 17:30 104 26 100 30 05/03/16 17:00 93/55 Mechanical Ventilator 05/03/16 16:00 98.0 Intake and Output 05/02/16 05/02/16 05/03/16 15:00 23:00 07:00 Intake Total 769 ml 410 ml 740 ml Output Total 370 ml 225 ml 340 ml Balance 399 ml 185 ml 400 ml Exam Constitutional: alert, obese, oriented Psych: nl mood/affect, no complaints Neck: other ((+) trach on vent) Respiratory: clear to auscultation, normal air movement Cardiovascular: nl pulses, regular rate and rhythm, No edema, No murmurs/extra sounds, No rub Gastrointestinal: bowel sounds, nl liver, spleen, non-tender, soft, No mass, No rebound or guarding Musculoskeletal: nl extremities to inspection Extremities: normal pulses, No clubbing, No cyanosis, No edema Neurological: lethargic Additional Comments Bedside Glucose - 72 Hours Test 04/30/16 18:43 04/30/16 19:25 04/30/16 21:16 04/30/16 22:16 Bedside Glucose 171mg/dL (70-220) 188mg/dL (70-220) 160mg/dL (70-220) 162mg/dL (70-220) Test 04/30/16 23:14 05/01/16 00:04 05/01/16 01:01 05/01/16 02:07 Bedside Glucose 159mg/dL (70-220) 152mg/dL (70-220) 141mg/dL (70-220) 150mg/dL (70-220) Test 05/01/16 03:06 05/01/16 05:13 05/01/16 06:53 05/01/16 08:35 Bedside Glucose 151mg/dL (70-220) 137mg/dL (70-220) 138mg/dL (70-220) 153mg/dL (70-220) Test 05/01/16 10:25 05/01/16 11:52 05/01/16 12:30 05/01/16 14:34 Bedside Glucose 182mg/dL (70-220) 187mg/dL (70-220) 169mg/dL (70-220) 168mg/dL (70-220) Test 05/01/16 15:27 05/01/16 17:07 05/01/16 18:43 05/01/16 20:17 Bedside Glucose 175mg/dL (70-220) 190mg/dL (70-220) 170mg/dL (70-220) 188mg/dL (70-220) Test 05/01/16 22:06 05/01/16 23:18 05/02/16 00:12 05/02/16 01:33 Bedside Glucose 170mg/dL (70-220) 161mg/dL (70-220) 164mg/dL (70-220) 157mg/dL (70-220) Test 05/02/16 02:16 05/02/16 03:20 05/02/16 04:39 05/02/16 06:01 Bedside Glucose 160mg/dL (70-220) 157mg/dL (70-220) 170mg/dL (70-220) 172mg/dL (70-220) Test 05/02/16 08:27 05/02/16 09:24 05/02/16 10:25 05/02/16 11:19 Bedside Glucose 197mg/dL (70-220) 184mg/dL (70-220) 174mg/dL (70-220) 172mg/dL (70-220) Test 05/02/16 12:15 05/02/16 13:00 05/02/16 14:08 05/02/16 17:26 Bedside Glucose 154mg/dL (70-220) 154mg/dL (70-220) 215mg/dL (70-220) 187mg/dL (70-220) Test 05/02/16 21:32 05/03/16 01:29 05/03/16 05:23 05/03/16 08:29 Bedside Glucose 228mg/dL (70-220) H 265mg/dL (70-220) H 260mg/dL (70-220) H 260mg/dL (70-220) H Test 05/03/16 13:03 05/03/16 16:45 Bedside Glucose 271mg/dL (70-220) H 281mg/dL (70-220) H Results Result Diagram: 05/03/1622 05/03/16 0622 Results 24 hrs Laboratory Tests Test 05/02/16 21:32 05/03/16 01:29 05/03/16 05:23 05/03/16 06:22 Bedside Glucose 228 H 265 H 260 H Anion Gap 11 Basophils # 0.0 Basophils % 0.1 Blood Morphology Comment Blood Urea Nitrogen 23 H Calcium Level 8.7 Carbon Dioxide Level 31 Chloride Level 98 Creatinine 0.67 Eosinophils # 0.7 H Eosinophils % 2.9 Glucose Level 228 H Hematocrit 27.2 L Hemoglobin 9.1 L Lymphocytes # 2.1 Lymphocytes % 9.0 L Magnesium Level 2.3 Mean Corpuscular Hemoglobin 31.0 Mean Corpuscular Hemoglobin Concent 33.3 Mean Corpuscular Volume 93.2 Mean Platelet Volume 9.5 Monocytes # 1.7 H Monocytes % 7.4 Neutrophils # 18.6 H Neutrophils % 80.6 H Nucleated Red Blood Cells # 0.0 Nucleated Red Blood Cells % 0.0 Phosphorus Level 3.0 Platelet Count 294 Potassium Level 4.3 Red Blood Count 2.92 L Red Cell Distribution Width 19.5 H Sodium Level 136 White Blood Count 23.0 #H Test 05/03/16 08:29 05/03/16 13:03 05/03/16 16:45 Bedside Glucose 260 H 271 H 281 H Medications Medications Current Medications Chlorhexidine Gluconate (Peridex) 15 ml Q12 MM Last administered on 05/03/16 08:29; Admin Dose 15 ML; Start 04/21/16 at 21:00 Ferrous Sulfate (Feosol Liquid Cup) 330 mg BID GTB Last administered on 08:29; Admin Dose 330 MG; Start 04/21/16 at 21:00 Lactobacillus Acidophilus/ Rhamnosus (Culturelle) 1 cap BID GTB Last administered on 05/03/16 08:29; Admin Dose 1 CAP; Start 04/21/16 at 21:00 Metoclopramide HCl (Reglan) 10 mg Q6 PRN GTB NAUSEA AND/OR VOMITING; Start 03/26 at 17:00 Multivitamins (Thera-Plus) 5 ml DAILY GTB Last administered on 05/03/16 08:29 ; Admin Dose 5 ML; Start 04/22/16 at 09:00 Miscellaneous Information 1 ea NOTE XX ; Start 04/21/16 at 17:30 Glucose (Glutose) 15 gm Q15M PRN PO DECREASED GLUCOSE; Start 04/21/16 at 17:30 Glucose (Glutose) 22.5 gm Q15M PRN PO DECREASED GLUCOSE; Start 04/21/16 at 17: 30 Dextrose (D50w Syringe) 25 ml Q15M PRN IV DECREASED GLUCOSE; Start 04/21/16 at 17:30 Dextrose (D50w Syringe) 50 ml Q15M PRN IV DECREASED GLUCOSE; Start 04/21/16 at 17:30 Glucagon (Glucagen) 1 mg Q15M PRN IM DECREASED GLUCOSE; Start 04/21/16 at 17:30 Glucose (Glutose) 15 gm Q15M PRN BUCCAL DECREASED GLUCOSE; Start 04/21/16 at 17 :30 Collagenase (Santyl) 1 applic DAILY TOP Last administered on 05/03/16 08:33; Admin Dose 1 APPLIC; Start 04/22/16 at 16:30 Nystatin (Nystatin Powder) 1 applic BID TOP Last administered on 05/03/16 08: 34; Admin Dose 1 APPLIC; Start 04/22/16 at 21:00 Lansoprazole (Prevacid) 30 mg DAILY@06 GTB Last administered on 05/03/16 05:24 ; Admin Dose 30 MG; Start 04/25/16 at 06:00 Fentanyl (Duragesic 50 Mcg/Hr Patch) 1 patch Q72H TRANSDERM Last administered on 05/02/16 23:34; Admin Dose 1 PATCH; Start 04/26/16 at 22:30 Lorazepam (Ativan) 1 mg Q2HWA PRN PEG Anxiety Last administered on 04/27/16 23 :40; Admin Dose 1 MG; Start 04/26/16 at 22:30 Clonazepam (Klonopin) 0.5 mg Q8 GTB Last administered on 05/03/16 13:11; Admin Dose 0.5 MG; Start 04/27/16 at 06:00 Acetaminophen (Tylenol Liquid) 650 mg Q6H PRN NGT PAIN AND OR ELEVATED TEMP Last administered on 05/03/16 02:48; Admin Dose 650 MG; Start 04/27/16 at 04:30 Amikacin Sulfate (Amikacin Iv Per Pharmacy) AMIKACIN PER PHARMACY NOTE XX ; Start 04/27/16 at 13:00 IV Flush 10 ml 10 ml PRN PRN IV IV PROTOCOL; Start 04/27/16 at 17:30 Amikacin Sulfate/ Sodium Chloride (Amikacin/NS) 104 ml @ 104 mls/hr Q36H IVPB Last administered on 05/03/16 16:41; Admin Dose 104 MLS/HR; Start 04/29/16 at 03:00 Insulin Aspart (Novolog Insulin Pen) NOVOLOG *MODERATE* ALGORI... Q4 SC Last administered on 05/03/16 16:50; Admin Dose 8 UNIT; Start 05/02/16 at 17:00 Carvedilol 3.125 mg 3.125 mg BID GTB ; Start 05/03/16 at 09:00 Norepinephrine (Levophed) 250 ml @ 1.875 mls/ hr TITRATE IV ; Start 05/03/16 at 10:30 Fluconazole (Diflucan) 100 mg DAILY PO ; Start 05/04/16 at 09:00 Metronidazole (Flagyl) 500 mg Q8 NGT Last administered on 05/03/16 13:43; Admin Dose 500 MG; Start 05/03/16 at 14:00 Insulin Human NPH (Humulin N) 24 unit Q8 SC Last administered on 05/03/16 14: 37; Admin Dose 24 UNIT; Start 05/03/16 at 14:00 Apixaban (Eliquis) 10 mg BID PO ; Start 05/03/16 at 21:00; Stop 05/10/16 at 09: 01 ELINA CORBETT MD May 03, 2016 18:27
--- NOTE | 2016-05-03 20:11 | CONS ---
Date/Time of Note Date/Time of Note DATE: 05/03/16 TIME: 20:09 Assessment/Plan Assessment/Plan Additional Assessment/Plan ASSESSMENT AND PLAN: 1. Anemia, gastritis,gastric ulcer,ischemic ulcer in colon 2. Diabetes mellitus.still on insulin drip 3. Cerebrovascular accident. 4. Vent dependent respiratory failure.transferred to ICU for worsening of her condition. 5. Paroxysmal atrial fibrillation. 6. Dysphagia status post G-tube. 7. Hypertension. 8. Renal insufficiency. 9. Multiple wounds. 10. Cardiomyopathy. 11.intermittent vomiting for months as per daughter 12.sepsis,afebrile now,leucocytosis,hypotension Plan antibiotics as per ID resume feeding continue PPI Consultation Date/Type/Reason Admit Date/Time Apr 21, 2016 at 10:39 Type of Consultation: endocrinology Referring Provider: DELIO GUILLERMO 24 HR Interval Summary Free Text/Dictation no abdominal pain Constitutional: no complaints Exam/Review of Systems Vital Signs Vitals Vital Signs Date Time Temp Pulse Resp B/P Pulse Ox O2 Delivery O2 Flow Rate FiO2 05/03/16 20:00 98.8 103 20 101/52 99 Mechanical Ventilator 05/03/16 17:30 30 Intake and Output 05/02/16 05/02/16 05/03/16 15:00 23:00 07:00 Intake Total 769 ml 410 ml 740 ml Output Total 370 ml 225 ml 340 ml Balance 399 ml 185 ml 400 ml Exam Constitutional: alert, oriented, well developed Psych: nl mood/affect, no complaints Head: atraumatic, normocephalic Eyes: EOMI, PERRL, nl conjunctiva, nl lids, nl sclera ENMT: nl external ears & nose, nl lips & teeth, nl nasal mucosa & septum Neck: non-tender, supple Respiratory: clear to auscultation, normal air movement Cardiovascular: nl pulses, regular rate and rhythm Gastrointestinal: nl liver, spleen, non-tender, soft Musculoskeletal: nl extremities to inspection, nl gait and stance Extremities: normal pulses Neurological: IGNITER CAPPER II-XII intact, nl mental status, nl speech, nl strength Skin: nl turgor, No rash or lesions Lymph: nl lymph nodes Results Result Diagram: 05/03/16 0622 05/03/16 0622 Results 24 hrs Laboratory Tests Test 05/02/16 21:32 05/03/16 01:29 05/03/16 05:23 05/03/16 06:22 Bedside Glucose 228 H 265 H 260 H Anion Gap 11 Basophils # 0.0 Basophils % 0.1 Blood Morphology Comment Blood Urea Nitrogen 23 H Calcium Level 8.7 Carbon Dioxide Level 31 Chloride Level 98 Creatinine 0.67 Eosinophils # 0.7 H Eosinophils % 2.9 Glucose Level 228 H Hematocrit 27.2 L Hemoglobin 9.1 L Lymphocytes # 2.1 Lymphocytes % 9.0 L Magnesium Level 2.3 Mean Corpuscular Hemoglobin 31.0 Mean Corpuscular Hemoglobin Concent 33.3 Mean Corpuscular Volume 93.2 Mean Platelet Volume 9.5 Monocytes # 1.7 H Monocytes % 7.4 Neutrophils # 18.6 H Neutrophils % 80.6 H Nucleated Red Blood Cells # 0.0 Nucleated Red Blood Cells % 0.0 Phosphorus Level 3.0 Platelet Count 294 Potassium Level 4.3 Red Blood Count 2.92 L Red Cell Distribution Width 19.5 H Sodium Level 136 White Blood Count 23.0 #H Test 05/03/16 08:29 05/03/16 13:03 05/03/16 16:45 Bedside Glucose 260 H 271 H 281 H Medications Medications Current Medications Chlorhexidine Gluconate (Peridex) 15 ml Q12 MM Last administered on 05/03/16 08:29; Admin Dose 15 ML; Start 04/21/16 at 21:00 Ferrous Sulfate (Feosol Liquid Cup) 330 mg BID GTB Last administered on 08:29; Admin Dose 330 MG; Start 04/21/16 at 21:00 Lactobacillus Acidophilus/ Rhamnosus (Culturelle) 1 cap BID GTB Last administered on 05/03/16 08:29; Admin Dose 1 CAP; Start 04/21/16 at 21:00 Metoclopramide HCl (Reglan) 10 mg Q6 PRN GTB NAUSEA AND/OR VOMITING; Start 03/26 at 17:00 Multivitamins (Thera-Plus) 5 ml DAILY GTB Last administered on 05/03/16 08:29 ; Admin Dose 5 ML; Start 04/22/16 at 09:00 Miscellaneous Information 1 ea NOTE XX ; Start 04/21/16 at 17:30 Glucose (Glutose) 15 gm Q15M PRN PO DECREASED GLUCOSE; Start 04/21/16 at 17:30 Glucose (Glutose) 22.5 gm Q15M PRN PO DECREASED GLUCOSE; Start 04/21/16 at 17: 30 Dextrose (D50w Syringe) 25 ml Q15M PRN IV DECREASED GLUCOSE; Start 04/21/16 at 17:30 Dextrose (D50w Syringe) 50 ml Q15M PRN IV DECREASED GLUCOSE; Start 04/21/16 at 17:30 Glucagon (Glucagen) 1 mg Q15M PRN IM DECREASED GLUCOSE; Start 04/21/16 at 17:30 Glucose (Glutose) 15 gm Q15M PRN BUCCAL DECREASED GLUCOSE; Start 04/21/16 at 17 :30 Collagenase (Santyl) 1 applic DAILY TOP Last administered on 05/03/16 08:33; Admin Dose 1 APPLIC; Start 04/22/16 at 16:30 Nystatin (Nystatin Powder) 1 applic BID TOP Last administered on 05/03/16 08: 34; Admin Dose 1 APPLIC; Start 04/22/16 at 21:00 Lansoprazole (Prevacid) 30 mg DAILY@06 GTB Last administered on 05/03/16 05:24 ; Admin Dose 30 MG; Start 04/25/16 at 06:00 Fentanyl (Duragesic 50 Mcg/Hr Patch) 1 patch Q72H TRANSDERM Last administered on 05/02/16 23:34; Admin Dose 1 PATCH; Start 04/26/16 at 22:30 Lorazepam (Ativan) 1 mg Q2HWA PRN PEG Anxiety Last administered on 04/27/16 23 :40; Admin Dose 1 MG; Start 04/26/16 at 22:30 Clonazepam (Klonopin) 0.5 mg Q8 GTB Last administered on 05/03/16 13:11; Admin Dose 0.5 MG; Start 04/27/16 at 06:00 Acetaminophen (Tylenol Liquid) 650 mg Q6H PRN NGT PAIN AND OR ELEVATED TEMP Last administered on 05/03/16 02:48; Admin Dose 650 MG; Start 04/27/16 at 04:30 Amikacin Sulfate (Amikacin Iv Per Pharmacy) AMIKACIN PER PHARMACY NOTE XX ; Start 04/27/16 at 13:00 IV Flush 10 ml 10 ml PRN PRN IV IV PROTOCOL; Start 04/27/16 at 17:30 Amikacin Sulfate/ Sodium Chloride (Amikacin/NS) 104 ml @ 104 mls/hr Q36H IVPB Last administered on 05/03/16 16:41; Admin Dose 104 MLS/HR; Start 04/29/16 at 03:00 Insulin Aspart (Novolog Insulin Pen) NOVOLOG *MODERATE* ALGORI... Q4 SC Last administered on 05/03/16 16:50; Admin Dose 8 UNIT; Start 05/02/16 at 17:00 Carvedilol 3.125 mg 3.125 mg BID GTB ; Start 05/03/16 at 09:00 Norepinephrine (Levophed) 250 ml @ 1.875 mls/ hr TITRATE IV ; Start 05/03/16 at 10:30 Fluconazole (Diflucan) 100 mg DAILY PO ; Start 05/04/16 at 09:00 Metronidazole (Flagyl) 500 mg Q8 NGT Last administered on 05/03/16 13:43; Admin Dose 500 MG; Start 05/03/16 at 14:00 Insulin Human NPH (Humulin N) 24 unit Q8 SC Last administered on 05/03/16 14: 37; Admin Dose 24 UNIT; Start 05/03/16 at 14:00 Apixaban (Eliquis) 10 mg BID PO ; Start 05/03/16 at 21:00; Stop 05/10/16 at 09: 01 Apixaban (Eliquis) 5 mg BID PO ; Start 05/12/16 at 09:00 INES TORRE MD May 03, 2016 20:11
[2016-05-03] MEDS: APIXABAN 5 MG TABLET PO SCH (20:21)
[2016-05-04] VITALS (21 sets, daily range): BP systolic 90–116; BP diastolic 57–75; PULSE 97–115; RESP 17–27
[2016-05-04] MEDS: INSULIN ASPART [NOVOLOG] 3 ML PEN SC SCH ×5 (02:06→17:38)
[2016-05-04] MEDS: ACETYLCYSTEINE 20% 4 ML VIAL NEB SCH ×4 (02:11→19:58)
[2016-05-04] MEDS: LEVALBUTEROL (NEB) 0.63 MG/3 ML AMP HHN PRN ×4 (02:11→19:59)
[2016-05-04] MEDS: metroNIDAZOLE 500 MG TAB NGT SCH ×2 (05:40→13:58)
[2016-05-04] MEDS: LANSOPRAZOLE 30 MG CAP GTB SCH (05:40)
[2016-05-04] MEDS: NPH, HUMAN INSULIN ISOPHANE 3ML VIAL SC SCH (05:42)
[2016-05-04] MEDS: clonAZEPAM 0.5 MG TAB GTB SCH ×2 (05:49→13:58)
[2016-05-04 08:17] LABS: BASOPHIL # 0.2 10^3/ul (0.0-0.1); BASOPHILS % 0.9 % (0.0-2.0); EOSINOPHILS # 1.6 10^3/ul (0.0-0.5); EOSINOPHILS % 7.4 % (0.0-7.0); HEMATOCRIT 25.6 % (37.0-47.0); HEMOGLOBIN 8.5 g/dl (12.0-16.0); LYMPHOCYTES # 2.9 10^3/ul (0.8-2.9); LYMPHOCYTES % 13.4 % (15.0-51.0); MEAN CORPUSCULAR HGB CONC 33.1 g/dl (32.0-37.0); MEAN CORPUSCULAR VOLUME 93.6 fl (82.0-101.0); MEAN PLATELET VOLUME 9.6 fl (7.4-10.4); MONOCYTE # 1.9 10^3/ul (0.3-0.9); MONOCYTES % 8.6 % (0.0-11.0); NEUTROPHIL # 15.1 10^3/ul (1.6-7.5); NEUTROPHILS % 69.7 % (39.0-77.0); PLATELET COUNT 308 10^3/UL (140-440); RED BLOOD COUNT 2.74 10^6/ul (4.20-5.40); RED CELL DISTRIBUTION WIDTH 19.8 % (11.5-14.5); UNCORRECTED WBC 21.7 10^3/ul (4.8-10.8); WHITE BLOOD COUNT 21.7 10^3/ul (4.8-10.8)
[2016-05-04 08:19] LABS: POTASSIUM 4.1 mmol/L (3.5-5.1)
[2016-05-04 08:22] LABS: CREATININE 0.56 mg/dl (0.44-1.00)
[2016-05-04 08:35] LABS: CONDITION 1; LH ANALYZER COMMENTS 1; SUSPECT 1
[2016-05-04] MEDS: FERROUS SULFATE 60 MG/ML 5ML CUP GTB SCH (08:38)
[2016-05-04] MEDS: CHLORHEXIDINE GLUCONATE 15 ML UD CUP MM SCH (08:39)
[2016-05-04] MEDS: MULTIVITAMINS 5 ML CUP GTB SCH (08:39)
[2016-05-04] MEDS: NYSTATIN 30 GM POWDER BTL TOP SCH (08:39)
[2016-05-04] MEDS: APIXABAN 5 MG TABLET PO SCH (08:39)
[2016-05-04] MEDS: COLLAGENASE 30 GM TUBE TOP SCH (08:40)
[2016-05-04 08:48] LABS: CALCIUM 8.4 mg/dl (8.4-10.2)
[2016-05-04] MEDS: LACTOBACILLUS RHAMNOSUS CAP GTB SCH (09:00)
[2016-05-04] MEDS ORDERED: FLUCONAZOLE 100 MG TAB PO SCH (09:00)
--- NOTE | 2016-05-04 09:09 | CONS ---
Date/Time of Note Date/Time of Note DATE: 05/04/16 TIME: 09:08 Consult Date/Type/Reason Admit Date/Time Apr 21, 2016 at 10:39 Type of Consultation: pulmonary Ordering Provider: DELIO GUILLERMO Subjective Patient remains stable no significant changes Remains confused and encephalopathic Objective Vital Signs Date Time Temp Pulse Resp B/P Pulse Ox O2 Delivery O2 Flow Rate FiO2 05/04/16 08:20 114 05/04/16 07:54 98.0 20 116/75 98 05/04/16 07:36 30 05/04/16 00:00 Mechanical Ventilator Intake and Output 05/03/16 05/03/16 05/04/16 15:00 23:00 07:00 Intake Total 630 ml 830 ml 620 ml Output Total 225 ml 305 ml 310 ml Balance 405 ml 525 ml 310 ml PHYSICAL EXAMINATION: VITAL SIGNS: As above HEENT: Pupils are equal and reactive to light. NECK: Supple, no JVD noted, no cervical adenopathy, no carotid bruits heard. Tracheostomy site clear. LUNGS: Decreased breath sounds at the bases. CARDIOVASCULAR: S1, S2 normal. ABDOMEN: Soft, obese, nontender, no organomegaly or masses noted. EXTREMITIES: No clubbing or cyanosis noted. NEUROLOGIC: Encephalopathic. Results/Medications Result Diagram: 05/04/16 0710 05/04/16 0701 Results 24 hrs Laboratory Tests Test 05/03/16 13:03 05/03/16 16:45 05/03/16 20:19 05/03/16 22:20 Bedside Glucose 271 H 281 H 233 H 246 H Test 05/04/16 01:59 05/04/16 05:38 05/04/16 07:01 05/04/16 07:10 Bedside Glucose 201 183 Anion Gap 11 Blood Urea Nitrogen 25 H Calcium Level 8.4 Carbon Dioxide Level 31 Chloride Level 97 Creatinine 0.56 Glucose Level 171 Potassium Level 4.1 Sodium Level 135 Basophils # 0.2 H Basophils % 0.9 Blood Morphology Comment Eosinophils # 1.6 H Eosinophils % 7.4 H Hematocrit 25.6 L Hemoglobin 8.5 L Lymphocytes # 2.9 Lymphocytes % 13.4 L Mean Corpuscular Hemoglobin 31.0 Mean Corpuscular Hemoglobin Concent 33.1 Mean Corpuscular Volume 93.6 Mean Platelet Volume 9.6 Monocytes # 1.9 H Monocytes % 8.6 Neutrophils # 15.1 H Neutrophils % 69.7 Nucleated Red Blood Cells # 0.0 Nucleated Red Blood Cells % 0.0 Platelet Count 308 Red Blood Count 2.74 L Red Cell Distribution Width 19.8 H White Blood Count 21.7 H Test 05/04/16 08:35 Bedside Glucose 187 Medications Current Medications Chlorhexidine Gluconate (Peridex) 15 ml Q12 MM Last administered on 05/04/16 08:39; Admin Dose 15 ML; Start 04/21/16 at 21:00 Ferrous Sulfate (Feosol Liquid Cup) 330 mg BID GTB Last administered on 08:38; Admin Dose 330 MG; Start 04/21/16 at 21:00 Lactobacillus Acidophilus/ Rhamnosus (Culturelle) 1 cap BID GTB Last administered on 05/03/16 20:20; Admin Dose 1 CAP; Start 04/21/16 at 21:00 Metoclopramide HCl (Reglan) 10 mg Q6 PRN GTB NAUSEA AND/OR VOMITING; Start 03/26 at 17:00 Multivitamins (Thera-Plus) 5 ml DAILY GTB Last administered on 05/04/16 08:39 ; Admin Dose 5 ML; Start 04/22/16 at 09:00 Miscellaneous Information 1 ea NOTE XX ; Start 04/21/16 at 17:30 Glucose (Glutose) 15 gm Q15M PRN PO DECREASED GLUCOSE; Start 04/21/16 at 17:30 Glucose (Glutose) 22.5 gm Q15M PRN PO DECREASED GLUCOSE; Start 04/21/16 at 17: 30 Dextrose (D50w Syringe) 25 ml Q15M PRN IV DECREASED GLUCOSE; Start 04/21/16 at 17:30 Dextrose (D50w Syringe) 50 ml Q15M PRN IV DECREASED GLUCOSE; Start 04/21/16 at 17:30 Glucagon (Glucagen) 1 mg Q15M PRN IM DECREASED GLUCOSE; Start 04/21/16 at 17:30 Glucose (Glutose) 15 gm Q15M PRN BUCCAL DECREASED GLUCOSE; Start 04/21/16 at 17 :30 Collagenase (Santyl) 1 applic DAILY TOP Last administered on 05/03/16 08:33; Admin Dose 1 APPLIC; Start 04/22/16 at 16:30 Nystatin (Nystatin Powder) 1 applic BID TOP Last administered on 05/04/16 08: 39; Admin Dose 1 APPLIC; Start 04/22/16 at 21:00 Lansoprazole (Prevacid) 30 mg DAILY@06 GTB Last administered on 05/04/16 05:40 ; Admin Dose 30 MG; Start 04/25/16 at 06:00 Fentanyl (Duragesic 50 Mcg/Hr Patch) 1 patch Q72H TRANSDERM Last administered on 05/02/16 23:34; Admin Dose 1 PATCH; Start 04/26/16 at 22:30 Lorazepam (Ativan) 1 mg Q2HWA PRN PEG Anxiety Last administered on 04/27/16 23 :40; Admin Dose 1 MG; Start 04/26/16 at 22:30 Clonazepam (Klonopin) 0.5 mg Q8 GTB Last administered on 05/04/16 05:49; Admin Dose 0.5 MG; Start 04/27/16 at 06:00 Acetaminophen (Tylenol Liquid) 650 mg Q6H PRN NGT PAIN AND OR ELEVATED TEMP Last administered on 05/03/16 02:48; Admin Dose 650 MG; Start 04/27/16 at 04:30 Amikacin Sulfate (Amikacin Iv Per Pharmacy) AMIKACIN PER PHARMACY NOTE XX ; Start 04/27/16 at 13:00 IV Flush 10 ml 10 ml PRN PRN IV IV PROTOCOL; Start 04/27/16 at 17:30 Amikacin Sulfate/ Sodium Chloride (Amikacin/NS) 104 ml @ 104 mls/hr Q36H IVPB Last administered on 05/03/16 16:41; Admin Dose 104 MLS/HR; Start 04/29/16 at 03:00 Insulin Aspart (Novolog Insulin Pen) NOVOLOG *MODERATE* ALGORI... Q4 SC Last administered on 05/04/16 08:49; Admin Dose 4 UNIT; Start 05/02/16 at 17:00 Carvedilol 3.125 mg 3.125 mg BID GTB Last administered on 05/04/16 08:40; Admin Dose 3.125 MG; Start 05/03/16 at 09:00 Norepinephrine (Levophed) 250 ml @ 1.875 mls/ hr TITRATE IV ; Start 05/03/16 at 10:30 Fluconazole (Diflucan) 100 mg DAILY PO Last administered on 05/04/16 08:40; Admin Dose 100 MG; Start 05/04/16 at 09:00 Metronidazole (Flagyl) 500 mg Q8 NGT Last administered on 05/04/16 05:40; Admin Dose 500 MG; Start 05/03/16 at 14:00 Insulin Human NPH (Humulin N) 24 unit Q8 SC Last administered on 05/04/16 05: 42; Admin Dose 24 UNIT; Start 05/03/16 at 14:00 Apixaban (Eliquis) 10 mg BID PO Last administered on 05/04/16 08:39; Admin Dose 10 MG; Start 05/03/16 at 21:00; Stop 05/10/16 at 09:01 Apixaban (Eliquis) 5 mg BID PO ; Start 05/12/16 at 09:00 Assessment/Plan Chief Complaint/Hosp Course IMPRESSION: 1. Ventilator-dependent respiratory failure, hypoxemic. 2. Tracheostomy dependent. 3. Pneumonia. 4. Anemia, status post esophagogastroduodenoscopy and colonoscopy. 5. Chronic encephalopathy. 6. History of diabetes mellitus. 7. Hypertension. 8. Craniotomy history. 9. History of congestive heart failure. 10. History of hypertension. 11. Anemia. RECOMMENDATIONS: 1. Continue vent support. 2. Gastrointestinal recommendations 3. Glycemic management per Endocrinology recommendations 4. Proton pump inhibitor. 5. Consider Grant evaluation Problems: JORDON MONSON MD, [facility] May 04, 2016 09:09
--- NOTE | 2016-05-04 10:22 | CONS ---
Date/Time of Note Date/Time of Note DATE: 05/04/16 TIME: 10:20 Assessment/Plan Assessment/Plan Additional Assessment/Plan ASSESSMENT AND PLAN: 1. Anemia, gastritis,gastric ulcer,ischemic ulcer in colon 2. Diabetes mellitus.still on insulin drip 3. Cerebrovascular accident. 4. Vent dependent respiratory failure.transferred to ICU for worsening of her condition. 5. Paroxysmal atrial fibrillation. 6. Dysphagia status post G-tube. 7. Hypertension. 8. Renal insufficiency. 9. Multiple wounds. 10. Cardiomyopathy. 11.intermittent vomiting for months as per daughter 12.sepsis,afebrile now,leucocytosis,hypotension,better 13s/p craniotomy Plan antibiotics as per ID resume feeding continue PPI monitor for aspiration Consultation Date/Type/Reason Admit Date/Time Apr 21, 2016 at 10:39 Type of Consultation: pulmonary Referring Provider: DELIO GUILLERMO 24 HR Interval Summary Free Text/Dictation no abdominal pain tolerating feeding no evidence of aspiration Exam/Review of Systems Vital Signs Vitals Vital Signs Date Time Temp Pulse Resp B/P Pulse Ox O2 Delivery O2 Flow Rate FiO2 05/04/16 09:29 101 23 98 30 05/04/16 07:54 98.0 116/75 05/04/16 00:00 Mechanical Ventilator Intake and Output 05/03/16 05/03/16 05/04/16 15:00 23:00 07:00 Intake Total 630 ml 830 ml 620 ml Output Total 225 ml 305 ml 310 ml Balance 405 ml 525 ml 310 ml Exam Constitutional: alert, oriented, well developed Psych: nl mood/affect, no complaints Head: atraumatic, normocephalic Eyes: EOMI, PERRL, nl conjunctiva, nl lids, nl sclera ENMT: nl external ears & nose, nl lips & teeth, nl nasal mucosa & septum Neck: non-tender, supple Respiratory: clear to auscultation, normal air movement Cardiovascular: nl pulses, regular rate and rhythm Gastrointestinal: nl liver, spleen, non-tender, soft Musculoskeletal: nl extremities to inspection, nl gait and stance Extremities: normal pulses Neurological: [employer] II-XII intact, nl mental status, nl speech, nl strength Skin: nl turgor, No rash or lesions Lymph: nl lymph nodes Results Result Diagram: 05/04/16 0710 05/04/16 0701 Results 24 hrs Laboratory Tests Test 1/24/17 13:03 05/03/16 16:45 05/03/16 20:19 05/03/16 22:20 Bedside Glucose 271 H 281 H 233 H 246 H Test 05/04/16 01:59 05/04/16 05:38 05/04/16 07:01 05/04/16 07:10 Bedside Glucose 201 183 Anion Gap 11 Blood Urea Nitrogen 25 H Calcium Level 8.4 Carbon Dioxide Level 31 Chloride Level 97 Creatinine 0.56 Glucose Level 171 Potassium Level 4.1 Sodium Level 135 Basophils # 0.2 H Basophils % 0.9 Blood Morphology Comment Eosinophils # 1.6 H Eosinophils % 7.4 H Hematocrit 25.6 L Hemoglobin 8.5 L Lymphocytes # 2.9 Lymphocytes % 13.4 L Mean Corpuscular Hemoglobin 31.0 Mean Corpuscular Hemoglobin Concent 33.1 Mean Corpuscular Volume 93.6 Mean Platelet Volume 9.6 Monocytes # 1.9 H Monocytes % 8.6 Neutrophils # 15.1 H Neutrophils % 69.7 Nucleated Red Blood Cells # 0.0 Nucleated Red Blood Cells % 0.0 Platelet Count 308 Red Blood Count 2.74 L Red Cell Distribution Width 19.8 H White Blood Count 21.7 H Test 05/04/16 08:35 Bedside Glucose 187 Medications Medications Current Medications Chlorhexidine Gluconate (Peridex) 15 ml Q12 MM Last administered on 05/04/16 08:39; Admin Dose 15 ML; Start 04/21/16 at 21:00 Ferrous Sulfate (Feosol Liquid Cup) 330 mg BID GTB Last administered on 08:38; Admin Dose 330 MG; Start 04/21/16 at 21:00 Lactobacillus Acidophilus/ Rhamnosus (Culturelle) 1 cap BID GTB Last administered on 05/03/16 20:20; Admin Dose 1 CAP; Start 04/21/16 at 21:00 Metoclopramide HCl (Reglan) 10 mg Q6 PRN GTB NAUSEA AND/OR VOMITING; Start 03/26 at 17:00 Multivitamins (Thera-Plus) 5 ml DAILY GTB Last administered on 05/04/16 08:39 ; Admin Dose 5 ML; Start 04/22/16 at 09:00 Miscellaneous Information 1 ea NOTE XX ; Start 04/21/16 at 17:30 Glucose (Glutose) 15 gm Q15M PRN PO DECREASED GLUCOSE; Start 04/21/16 at 17:30 Glucose (Glutose) 22.5 gm Q15M PRN PO DECREASED GLUCOSE; Start 04/21/16 at 17: 30 Dextrose (D50w Syringe) 25 ml Q15M PRN IV DECREASED GLUCOSE; Start 04/21/16 at 17:30 Dextrose (D50w Syringe) 50 ml Q15M PRN IV DECREASED GLUCOSE; Start 04/21/16 at 17:30 Glucagon (Glucagen) 1 mg Q15M PRN IM DECREASED GLUCOSE; Start 04/21/16 at 17:30 Glucose (Glutose) 15 gm Q15M PRN BUCCAL DECREASED GLUCOSE; Start 04/21/16 at 17 :30 Collagenase (Santyl) 1 applic DAILY TOP Last administered on 05/03/16 08:33; Admin Dose 1 APPLIC; Start 04/22/16 at 16:30 Nystatin (Nystatin Powder) 1 applic BID TOP Last administered on 05/04/16 08: 39; Admin Dose 1 APPLIC; Start 04/22/16 at 21:00 Lansoprazole (Prevacid) 30 mg DAILY@06 GTB Last administered on 05/04/16 05:40 ; Admin Dose 30 MG; Start 04/25/16 at 06:00 Fentanyl (Duragesic 50 Mcg/Hr Patch) 1 patch Q72H TRANSDERM Last administered on 05/02/16 23:34; Admin Dose 1 PATCH; Start 04/26/16 at 22:30 Lorazepam (Ativan) 1 mg Q2HWA PRN PEG Anxiety Last administered on 04/27/16 23 :40; Admin Dose 1 MG; Start 04/26/16 at 22:30 Clonazepam (Klonopin) 0.5 mg Q8 GTB Last administered on 05/04/16 05:49; Admin Dose 0.5 MG; Start 04/27/16 at 06:00 Acetaminophen (Tylenol Liquid) 650 mg Q6H PRN NGT PAIN AND OR ELEVATED TEMP Last administered on 05/03/16 02:48; Admin Dose 650 MG; Start 04/27/16 at 04:30 Amikacin Sulfate (Amikacin Iv Per Pharmacy) AMIKACIN PER PHARMACY NOTE XX ; Start 04/27/16 at 13:00 IV Flush 10 ml 10 ml PRN PRN IV IV PROTOCOL; Start 04/27/16 at 17:30 Amikacin Sulfate/ Sodium Chloride (Amikacin/NS) 104 ml @ 104 mls/hr Q36H IVPB Last administered on 05/03/16 16:41; Admin Dose 104 MLS/HR; Start 04/29/16 at 03:00 Insulin Aspart (Novolog Insulin Pen) NOVOLOG *MODERATE* ALGORI... Q4 SC Last administered on 05/04/16 08:49; Admin Dose 4 UNIT; Start 05/02/16 at 17:00 Carvedilol 3.125 mg 3.125 mg BID GTB Last administered on 05/04/16 08:40; Admin Dose 3.125 MG; Start 05/03/16 at 09:00 Norepinephrine (Levophed) 250 ml @ 1.875 mls/ hr TITRATE IV ; Start 05/03/16 at 10:30 Fluconazole (Diflucan) 100 mg DAILY PO Last administered on 05/04/16 08:40; Admin Dose 100 MG; Start 05/04/16 at 09:00 Metronidazole (Flagyl) 500 mg Q8 NGT Last administered on 05/04/16 05:40; Admin Dose 500 MG; Start 05/03/16 at 14:00 Apixaban (Eliquis) 10 mg BID PO Last administered on 05/04/16 08:39; Admin Dose 10 MG; Start 05/03/16 at 21:00; Stop 05/10/16 at 09:01 Apixaban (Eliquis) 5 mg BID PO ; Start 05/12/16 at 09:00 Insulin Human NPH (Humulin N) 28 unit Q8 SC ; Start 05/04/16 at 14:00 INES TORRE MD May 04, 2016 10:22
--- NOTE | 2016-05-04 13:33 | CONS ---
Date/Time of Note Date/Time of Note DATE: 05/04/16 TIME: 13:31 Assessment/Plan Assessment/Plan Problems: (1) Type 2 diabetes mellitus with other specified complication Status: Chronic Comment: Marked improvement in glucose levels w/ increasing NPH to 24 units q8. Near goal. Will increase again to 28 q8 and reeval tomorrow. Consultation Date/Type/Reason Admit Date/Time Apr 21, 2016 at 10:39 Initial Consult Date 05/02/16 Type of Consultation: Endocrinology Reason for Consultation T2DM management Referring Provider: DELIO GUILLERMO 24 HR Interval Summary Subjective hx not possible: pt non-verbal Exam/Review of Systems Vital Signs Vitals VS - Last 72 Hours, by Label Date Time Temp Pulse Resp B/P Pulse Ox O2 Delivery O2 Flow Rate FiO2 05/04/16 13:00 99 20 99 30 05/04/16 12:43 99 05/04/16 11:04 98.6 96 20 96/57 94 05/04/16 10:56 108 21 98 30 05/04/16 09:29 101 23 98 30 05/04/16 08:20 114 05/04/16 08:00 30 05/04/16 07:54 98.0 116 20 116/75 98 05/04/16 07:36 103 26 97 30 05/04/16 05:25 109 25 96 30 05/04/16 04:43 115 05/04/16 04:01 101 27 100 30 05/04/16 04:00 98.2 111 17 96/61 97 05/04/16 03:42 30 05/04/16 02:11 97 18 100 30 05/04/16 00:41 101 05/04/16 00:00 98.7 97 25 90/57 100 Mechanical Ventilator 05/03/16 23:25 99 19 100 30 05/03/16 23:00 96 24 98/55 100 Mechanical Ventilator 05/03/16 22:00 100 23 100/57 96 Mechanical Ventilator 05/03/16 21:35 95 18 100 30 05/03/16 21:00 101 18 96/60 100 Mechanical Ventilator 05/03/16 20:05 103 22 99 30 05/03/16 20:00 100 05/03/16 20:00 98.8 103 20 101/52 99 Mechanical Ventilator 05/03/16 20:00 30 05/03/16 19:00 103 24 87/51 99 Mechanical Ventilator 05/03/16 18:00 101 25 92/55 100 Mechanical Ventilator 05/03/16 17:30 104 26 100 30 05/03/16 17:00 104 21 93/55 100 Mechanical Ventilator 05/03/16 16:00 98.0 106 24 96/63 100 Mechanical Ventilator 05/03/16 16:00 105 05/03/16 15:30 106 19 100 30 05/03/16 15:00 111 25 101/64 99 Mechanical Ventilator 05/03/16 14:00 108 18 85/63 100 Mechanical Ventilator 05/03/16 13:30 111 22 100 30 05/03/16 12:00 113 05/03/16 12:00 98.0 114 22 86/54 100 Mechanical Ventilator 05/03/16 11:30 115 30 100 30 05/03/16 11:00 112 27 90/51 99 Mechanical Ventilator 05/03/16 10:00 112 27 84/56 100 Mechanical Ventilator 05/03/16 09:30 111 24 100 30 05/03/16 09:00 114 23 84/58 100 Mechanical Ventilator 05/03/16 08:30 30 05/03/16 08:00 98.4 115 23 83/58 100 Mechanical Ventilator 05/03/16 08:00 118 05/03/16 08:00 115 24 100 30 05/03/16 07:04 119 23 94/59 100 Mechanical Ventilator 05/03/16 06:00 120 25 93/67 99 Mechanical Ventilator 05/03/16 05:30 115 25 99 30 05/03/16 05:00 120 27 94/62 99 Mechanical Ventilator 05/03/16 04:00 98.7 120 26 91/63 100 Mechanical Ventilator 05/03/16 04:00 121 05/03/16 03:30 121 29 100 30 05/03/16 03:00 123 30 88/58 99 Mechanical Ventilator 05/03/16 02:00 125 35 87/54 100 Mechanical Ventilator 05/03/16 01:35 126 29 99 30 05/03/16 01:00 122 32 103/66 99 Mechanical Ventilator 05/03/16 00:39 100.8 121 26 101/68 100 Mechanical Ventilator 05/03/16 00:00 125 05/02/16 23:25 128 28 100 30 05/02/16 23:00 129 31 92/58 100 Mechanical Ventilator 05/02/16 22:00 136 29 111/65 100 Mechanical Ventilator 05/02/16 21:30 129 26 100 30 05/02/16 21:00 133 28 107/63 99 Mechanical Ventilator 05/02/16 20:00 99.8 127 24 115/103 100 Mechanical Ventilator 05/02/16 20:00 128 05/02/16 20:00 30 05/02/16 19:50 127 30 100 30 05/02/16 19:00 126 23 103/64 100 05/02/16 18:00 124 34 113/74 100 Mechanical Ventilator 05/02/16 17:13 117 28 100 30 05/02/16 17:00 114 25 107/67 100 Mechanical Ventilator 05/02/16 16:00 99.2 114 30 124/70 100 Mechanical Ventilator 05/02/16 16:00 118 05/02/16 15:00 114 25 114/65 95 Mechanical Ventilator 05/02/16 14:45 114 18 99 30 05/02/16 14:00 127 35 160/70 97 Mechanical Ventilator 05/02/16 13:01 116 18 99 30 05/02/16 13:00 116 21 110/62 98 Mechanical Ventilator 05/02/16 12:00 98.4 114 23 96/64 98 Mechanical Ventilator 05/02/16 12:00 114 05/02/16 11:45 113 25 99 30 05/02/16 11:00 114 23 98/64 98 Mechanical Ventilator 05/02/16 10:00 116 21 112/62 98 Mechanical Ventilator 05/02/16 09:47 117 22 100 30 05/02/16 09:00 98.0 116 21 108/62 98 Mechanical Ventilator 05/02/16 08:37 117 33 99 30 05/02/16 08:10 30 05/02/16 08:00 114 05/02/16 08:00 115 24 116/55 98 Mechanical Ventilator 05/02/16 07:00 117 26 109/75 98 Mechanical Ventilator 05/02/16 06:00 122 24 87/64 100 05/02/16 05:47 117 26 100 30 05/02/16 05:00 118 22 108/49 100 Mechanical Ventilator 05/02/16 04:00 98.3 112 23 116/75 100 Mechanical Ventilator 05/02/16 04:00 113 05/02/16 03:52 116 26 100 30 05/02/16 03:00 120 23 111/63 100 Mechanical Ventilator 05/02/16 02:00 124 20 100 Mechanical Ventilator 05/02/16 01:47 116 28 100 30 05/02/16 01:40 113 25 100 30 05/02/16 01:00 120 21 129/64 100 Mechanical Ventilator 05/02/16 00:00 98.3 116 21 108/55 98 Mechanical Ventilator 05/02/16 00:00 114 05/01/16 23:31 114 22 97 30 05/01/16 23:00 116 22 110/55 94 Mechanical Ventilator 05/01/16 22:00 121 20 110/51 100 Mechanical Ventilator 05/01/16 21:47 114 23 97 30 05/01/16 21:00 119 26 110/65 95 Mechanical Ventilator 05/01/16 20:25 116 23 100 30 05/01/16 20:00 120 05/01/16 20:00 120 24 118/66 97 Mechanical Ventilator 05/01/16 20:00 30 05/01/16 19:41 115 23 96 30 05/01/16 19:00 98.9 121 25 104/63 98 05/01/16 17:30 113 24 118/68 98 Mechanical Ventilator 05/01/16 17:05 120 26 98 30 05/01/16 17:00 120 22 97 05/01/16 16:30 114 26 135/74 78 Mechanical Ventilator 05/01/16 16:00 117 05/01/16 16:00 98.0 118 29 98 05/01/16 15:30 113 17 95/28 100 Mechanical Ventilator 05/01/16 15:15 115 21 100 30 05/01/16 15:00 115 25 131/63 05/01/16 14:30 114 18 116/59 05/01/16 14:00 119 22 146/60 98 Vital Signs Date Time Temp Pulse Resp B/P Pulse Ox O2 Delivery O2 Flow Rate FiO2 05/04/16 13:00 99 20 99 30 05/04/16 11:04 98.6 96/57 05/04/16 00:00 Mechanical Ventilator Intake and Output 05/03/16 05/03/16 05/04/16 15:00 23:00 07:00 Intake Total 630 ml 830 ml 620 ml Output Total 225 ml 305 ml 310 ml Balance 405 ml 525 ml 310 ml Exam Constitutional: obese, No alert Neck: other ((+) trach on vent) Respiratory: No clear to auscultation (upper airway noises B) Cardiovascular: edema (1+ edema LLE), nl pulses, regular rate and rhythm, No murmurs/extra sounds, No rub Gastrointestinal: bowel sounds, nl liver, spleen, non-tender, soft, No mass, No rebound or guarding Musculoskeletal: nl extremities to inspection Extremities: edema (1+ edema LLE), normal pulses, No clubbing, No cyanosis Neurological: TOPPIECE CHOPPER II-XII intact, lethargic Additional Comments Bedside Glucose - 72 Hours Test 05/01/16 14:34 05/01/16 15:27 05/01/16 17:07 05/01/16 18:43 Bedside Glucose 168mg/dL (70-220) 175mg/dL (70-220) 190mg/dL (70-220) 170mg/dL (70-220) Test 05/01/16 20:17 05/01/16 22:06 05/01/16 23:18 05/02/16 00:12 Bedside Glucose 188mg/dL (70-220) 170mg/dL (70-220) 161mg/dL (70-220) 164mg/dL (70-220) Test 05/02/16 01:33 05/02/16 02:16 05/02/16 03:20 05/02/16 04:39 Bedside Glucose 157mg/dL (70-220) 160mg/dL (70-220) 157mg/dL (70-220) 170mg/dL (70-220) Test 05/02/16 06:01 05/02/16 08:27 05/02/16 09:24 05/02/16 10:25 Bedside Glucose 172mg/dL (70-220) 197mg/dL (70-220) 184mg/dL (70-220) 174mg/dL (70-220) Test 05/02/16 11:19 05/02/16 12:15 05/02/16 13:00 05/02/16 14:08 Bedside Glucose 172mg/dL (70-220) 154mg/dL (70-220) 154mg/dL (70-220) 215mg/dL (70-220) Test 05/02/16 17:26 05/02/16 21:32 05/03/16 01:29 05/03/16 05:23 Bedside Glucose 187mg/dL (70-220) 228mg/dL (70-220) H 265mg/dL (70-220) H 260mg/dL (70-220) H Test 05/03/16 08:29 05/03/16 13:03 05/03/16 16:45 05/03/16 20:19 Bedside Glucose 260mg/dL (70-220) H 271mg/dL (70-220) H 281mg/dL (70-220) H 233mg/dL (70-220) H Test 05/03/16 22:20 05/04/16 01:59 05/04/16 05:38 05/04/16 08:35 Bedside Glucose 246mg/dL (70-220) H 201mg/dL (70-220) 183mg/dL (70-220) 187mg/dL (70-220) Results Result Diagram: 05/04/16 0710 05/04/16 0701 Results 24 hrs Laboratory Tests Test 05/03/16 16:45 05/03/16 20:19 05/03/16 22:20 05/04/16 01:59 Bedside Glucose 281 H 233 H 246 H 201 Test 05/04/16 05:38 05/04/16 07:01 05/04/16 07:10 05/04/16 08:35 Bedside Glucose 183 187 Anion Gap 11 Blood Urea Nitrogen 25 H Calcium Level 8.4 Carbon Dioxide Level 31 Chloride Level 97 Creatinine 0.56 Glucose Level 171 Potassium Level 4.1 Sodium Level 135 Basophils # 0.2 H Basophils % 0.9 Blood Morphology Comment Eosinophils # 1.6 H Eosinophils % 7.4 H Hematocrit 25.6 L Hemoglobin 8.5 L Lymphocytes # 2.9 Lymphocytes % 13.4 L Mean Corpuscular Hemoglobin 31.0 Mean Corpuscular Hemoglobin Concent 33.1 Mean Corpuscular Volume 93.6 Mean Platelet Volume 9.6 Monocytes # 1.9 H Monocytes % 8.6 Neutrophils # 15.1 H Neutrophils % 69.7 Nucleated Red Blood Cells # 0.0 Nucleated Red Blood Cells % 0.0 Platelet Count 308 Red Blood Count 2.74 L Red Cell Distribution Width 19.8 H White Blood Count 21.7 H Medications Medications Current Medications Chlorhexidine Gluconate (Peridex) 15 ml Q12 MM Last administered on 05/04/16 08:39; Admin Dose 15 ML; Start 04/21/16 at 21:00 Ferrous Sulfate (Feosol Liquid Cup) 330 mg BID GTB Last administered on 08:38; Admin Dose 330 MG; Start 04/21/16 at 21:00 Lactobacillus Acidophilus/ Rhamnosus (Culturelle) 1 cap BID GTB Last administered on 05/03/16 20:20; Admin Dose 1 CAP; Start 04/21/16 at 21:00 Metoclopramide HCl (Reglan) 10 mg Q6 PRN GTB NAUSEA AND/OR VOMITING; Start 03/26 at 17:00 Multivitamins (Thera-Plus) 5 ml DAILY GTB Last administered on 05/04/16 08:39 ; Admin Dose 5 ML; Start 04/22/16 at 09:00 Miscellaneous Information 1 ea NOTE XX ; Start 04/21/16 at 17:30 Glucose (Glutose) 15 gm Q15M PRN PO DECREASED GLUCOSE; Start 04/21/16 at 17:30 Glucose (Glutose) 22.5 gm Q15M PRN PO DECREASED GLUCOSE; Start 04/21/16 at 17: 30 Dextrose (D50w Syringe) 25 ml Q15M PRN IV DECREASED GLUCOSE; Start 04/21/16 at 17:30 Dextrose (D50w Syringe) 50 ml Q15M PRN IV DECREASED GLUCOSE; Start 04/21/16 at 17:30 Glucagon (Glucagen) 1 mg Q15M PRN IM DECREASED GLUCOSE; Start 04/21/16 at 17:30 Glucose (Glutose) 15 gm Q15M PRN BUCCAL DECREASED GLUCOSE; Start 04/21/16 at 17 :30 Collagenase (Santyl) 1 applic DAILY TOP Last administered on 05/03/16 08:33; Admin Dose 1 APPLIC; Start 04/22/16 at 16:30 Nystatin (Nystatin Powder) 1 applic BID TOP Last administered on 05/04/16 08: 39; Admin Dose 1 APPLIC; Start 04/22/16 at 21:00 Lansoprazole (Prevacid) 30 mg DAILY@06 GTB Last administered on 05/04/16 05:40 ; Admin Dose 30 MG; Start 04/25/16 at 06:00 Fentanyl (Duragesic 50 Mcg/Hr Patch) 1 patch Q72H TRANSDERM Last administered on 05/02/16 23:34; Admin Dose 1 PATCH; Start 04/26/16 at 22:30 Lorazepam (Ativan) 1 mg Q2HWA PRN PEG Anxiety Last administered on 04/27/16 23 :40; Admin Dose 1 MG; Start 04/26/16 at 22:30 Clonazepam (Klonopin) 0.5 mg Q8 GTB Last administered on 05/04/16 05:49; Admin Dose 0.5 MG; Start 04/27/16 at 06:00 Acetaminophen (Tylenol Liquid) 650 mg Q6H PRN NGT PAIN AND OR ELEVATED TEMP Last administered on 05/03/16 02:48; Admin Dose 650 MG; Start 04/27/16 at 04:30 Amikacin Sulfate (Amikacin Iv Per Pharmacy) AMIKACIN PER PHARMACY NOTE XX ; Start 04/27/16 at 13:00 IV Flush 10 ml 10 ml PRN PRN IV IV PROTOCOL; Start 04/27/16 at 17:30 Amikacin Sulfate/ Sodium Chloride (Amikacin/NS) 104 ml @ 104 mls/hr Q36H IVPB Last administered on 05/03/16 16:41; Admin Dose 104 MLS/HR; Start 04/29/16 at 03:00 Insulin Aspart (Novolog Insulin Pen) NOVOLOG *MODERATE* ALGORI... Q4 SC Last administered on 05/04/16 08:49; Admin Dose 4 UNIT; Start 05/02/16 at 17:00 Carvedilol 3.125 mg 3.125 mg BID GTB Last administered on 05/04/16 08:40; Admin Dose 3.125 MG; Start 05/03/16 at 09:00 Norepinephrine (Levophed) 250 ml @ 1.875 mls/ hr TITRATE IV ; Start 05/03/16 at 10:30 Fluconazole (Diflucan) 100 mg DAILY PO Last administered on 05/04/16 08:40; Admin Dose 100 MG; Start 05/04/16 at 09:00 Metronidazole (Flagyl) 500 mg Q8 NGT Last administered on 05/04/16 05:40; Admin Dose 500 MG; Start 05/03/16 at 14:00 Apixaban (Eliquis) 10 mg BID PO Last administered on 05/04/16t 08:39; Admin Dose 10 MG; Start 05/03/16 at 21:00; Stop 05/10/16 at 09:01 Apixaban (Eliquis) 5 mg BID PO ; Start 05/12/16 at 09:00 Insulin Human NPH (Humulin N) 28 unit Q8 SC ; Start 05/04/16 at 14:00 ELINA CORBETT MD May 04, 2016 13:33
[2016-05-04] MEDS ORDERED: NPH, HUMAN INSULIN ISOPHANE 3ML VIAL SC SCH (14:00)
--- NOTE | 2016-05-04 15:12 | CONS ---
Date/Time of Note Date/Time of Note DATE: 05/04/16 TIME: 15:11 Assessment/Plan Assessment/Plan Chief Complaint/Hosp Course SUBJECTIVE: No acute changes. The patient is lying comfortably in bed. ANTIMICROBIALS: The patient is on: 1. Diflucan. 2. Amikacin. 3. Flagyl INDWELLINGS: Trach, PEG, Rivera, PICC line. PHYSICAL EXAMINATION: GENERAL: This is a chronically ill-appearing, elderly woman who is in no distress. HEENT: Head atraumatic, normocephalic. Sclerae anicteric. Buccal mucosa dry. NECK: Supple, tracheostomy present. CHEST: Rise symmetrical. Breath sounds diminished to bases. HEART: S1, S2. ABDOMEN: Soft, obese. Bowel sounds present. EXTREMITIES: Without cyanosis. ASSESSMENT: 1. Systemic inflammatory response syndrome with persistent leukocytosis and on and off low-grade fevers. 2. Healthcare-associated pneumonia. 3. Diabetes, off insulin drip and now followed by endocrinology. 4. Chronic encephalopathy with a history of craniotomy. 5. Anemia, status post EGD with colonoscopy. 6. Dysphagia. PLAN: The patient remains clinically unchanged. Etiology of her fevers and leukocytosis unclear. Her blood cultures have been negative since admission. Pending repeat cx's, continue abx ?hematology eval. Mitchell DEE staff/family at bedside Problems: Consultation Date/Type/Reason Admit Date/Time Apr 21, 2016 at 10:39 Initial Consult Date 05/02/16 Type of Consultation: ID Referring Provider: DELIO GUILLERMO Exam/Review of Systems Vital Signs Vitals Vital Signs Date Time Temp Pulse Resp B/P Pulse Ox O2 Delivery O2 Flow Rate FiO2 05/04/16 14:41 108 24 99 30 05/04/16 11:04 98.6 96/57 05/04/16 00:00 Mechanical Ventilator Intake and Output 05/03/16 05/03/16 05/04/16 15:00 23:00 07:00 Intake Total 630 ml 830 ml 620 ml Output Total 225 ml 305 ml 310 ml Balance 405 ml 525 ml 310 ml Results Result Diagram: 05/04/16 0710 05/04/16 0701 Results 24 hrs Laboratory Tests Test 05/03/16 16:45 05/03/16 20:19 05/03/16 22:20 05/04/16 01:59 Bedside Glucose 281 H 233 H 246 H 201 Test 05/04/16 05:38 05/04/16 07:01 05/04/16 07:10 05/04/16 08:35 Bedside Glucose 183 187 Anion Gap 11 Blood Urea Nitrogen 25 H Calcium Level 8.4 Carbon Dioxide Level 31 Chloride Level 97 Creatinine 0.56 Glucose Level 171 Potassium Level 4.1 Sodium Level 135 Basophils # 0.2 H Basophils % 0.9 Blood Morphology Comment Eosinophils # 1.6 H Eosinophils % 7.4 H Hematocrit 25.6 L Hemoglobin 8.5 L Lymphocytes # 2.9 Lymphocytes % 13.4 L Mean Corpuscular Hemoglobin 31.0 Mean Corpuscular Hemoglobin Concent 33.1 Mean Corpuscular Volume 93.6 Mean Platelet Volume 9.6 Monocytes # 1.9 H Monocytes % 8.6 Neutrophils # 15.1 H Neutrophils % 69.7 Nucleated Red Blood Cells # 0.0 Nucleated Red Blood Cells % 0.0 Platelet Count 308 Red Blood Count 2.74 L Red Cell Distribution Width 19.8 H White Blood Count 21.7 H Test 05/04/16 13:37 Bedside Glucose 219 Medications Medications Current Medications Chlorhexidine Gluconate (Peridex) 15 ml Q12 MM Last administered on 05/04/16 08:39; Admin Dose 15 ML; Start 04/21/16 at 21:00 Ferrous Sulfate (Feosol Liquid Cup) 330 mg BID GTB Last administered on 08:38; Admin Dose 330 MG; Start 04/21/16 at 21:00 Lactobacillus Acidophilus/ Rhamnosus (Culturelle) 1 cap BID GTB Last administered on 05/03/16 20:20; Admin Dose 1 CAP; Start 04/21/16 at 21:00 Metoclopramide HCl (Reglan) 10 mg Q6 PRN GTB NAUSEA AND/OR VOMITING; Start 03/26 at 17:00 Multivitamins (Thera-Plus) 5 ml DAILY GTB Last administered on 05/04/16 08:39 ; Admin Dose 5 ML; Start 04/22/16 at 09:00 Miscellaneous Information 1 ea NOTE XX ; Start 04/21/16 at 17:30 Glucose (Glutose) 15 gm Q15M PRN PO DECREASED GLUCOSE; Start 04/21/16 at 17:30 Glucose (Glutose) 22.5 gm Q15M PRN PO DECREASED GLUCOSE; Start 04/21/16 at 17: 30 Dextrose (D50w Syringe) 25 ml Q15M PRN IV DECREASED GLUCOSE; Start 04/21/16 at 17:30 Dextrose (D50w Syringe) 50 ml Q15M PRN IV DECREASED GLUCOSE; Start 04/21/16 at 17:30 Glucagon (Glucagen) 1 mg Q15M PRN IM DECREASED GLUCOSE; Start 04/21/16 at 17:30 Glucose (Glutose) 15 gm Q15M PRN BUCCAL DECREASED GLUCOSE; Start 04/21/16 at 17 :30 Collagenase (Santyl) 1 applic DAILY TOP Last administered on 05/03/16 08:33; Admin Dose 1 APPLIC; Start 04/22/16 at 16:30 Nystatin (Nystatin Powder) 1 applic BID TOP Last administered on 05/04/16 08: 39; Admin Dose 1 APPLIC; Start 04/22/16 at 21:00 Lansoprazole (Prevacid) 30 mg DAILY@06 GTB Last administered on 05/04/16 05:40 ; Admin Dose 30 MG; Start 04/25/16 at 06:00 Fentanyl (Duragesic 50 Mcg/Hr Patch) 1 patch Q72H TRANSDERM Last administered on 05/02/16 23:34; Admin Dose 1 PATCH; Start 04/26/16 at 22:30 Lorazepam (Ativan) 1 mg Q2HWA PRN PEG Anxiety Last administered on 04/27/16 23 :40; Admin Dose 1 MG; Start 04/26/16 at 22:30 Clonazepam (Klonopin) 0.5 mg Q8 GTB Last administered on 05/04/16 13:58; Admin Dose 0.5 MG; Start 04/27/16 at 06:00 Acetaminophen (Tylenol Liquid) 650 mg Q6H PRN NGT PAIN AND OR ELEVATED TEMP Last administered on 05/03/16 02:48; Admin Dose 650 MG; Start 04/27/16 at 04:30 Amikacin Sulfate (Amikacin Iv Per Pharmacy) AMIKACIN PER PHARMACY NOTE XX ; Start 04/27/16 at 13:00 IV Flush 10 ml 10 ml PRN PRN IV IV PROTOCOL; Start 04/27/16 at 17:30 Amikacin Sulfate/ Sodium Chloride (Amikacin/NS) 104 ml @ 104 mls/hr Q36H IVPB Last administered on 05/03/16 16:41; Admin Dose 104 MLS/HR; Start 04/29/16 at 03:00 Insulin Aspart (Novolog Insulin Pen) NOVOLOG *MODERATE* ALGORI... Q4 SC Last administered on 05/04/16 13:52; Admin Dose 4 UNIT; Start 05/02/16 at 17:00 Carvedilol 3.125 mg 3.125 mg BID GTB Last administered on 05/04/16 08:40; Admin Dose 3.125 MG; Start 05/03/16 at 09:00 Norepinephrine (Levophed) 250 ml @ 1.875 mls/ hr TITRATE IV ; Start 05/03/16 at 10:30 Fluconazole (Diflucan) 100 mg DAILY PO Last administered on 05/04/16 08:40; Admin Dose 100 MG; Start 05/04/16 at 09:00 Metronidazole (Flagyl) 500 mg Q8 NGT Last administered on 05/04/16 13:58; Admin Dose 500 MG; Start 05/03/16 at 14:00 Apixaban (Eliquis) 10 mg BID PO Last administered on 05/04/16 08:39; Admin Dose 10 MG; Start 05/03/16 at 21:00; Stop 05/10/16 at 09:01 Apixaban (Eliquis) 5 mg BID PO ; Start 05/12/16 at 09:00 Insulin Human NPH (Humulin N) 28 unit Q8 SC Last administered on 05/04/16 14: 01; Admin Dose 28 UNIT; Start 05/04/16 at 14:00 JEFF SERNA NP May 04, 2016 15:12
--- NOTE | 2016-05-04 19:51 | DS ---
DATE OF ADMISSION: 04/21/2016 DATE OF DISCHARGE: 05/04/2016 FINAL DIAGNOSES: 1. Acute on chronic ventilator dependent respiratory failure. 2. Community-acquired pneumonia. 3. Diabetes mellitus type 2 with hyperglycemia. 4. Anemia. 5. Gastritis, gastric ulcer, and ischemic ulcer in the colon per EGD. 6. Multiple wounds. 7. Chronic encephalopathy with history of craniotomy. 8. Congestive heart failure. 9. Dysphagia with PEG. 10. 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 BRIEF HISTORY: The patient is a 65-year-old female who was brought from senior living [facility] fo r dehydration and worsening anemia. The patient with history of gastritis and gastroesophageal refl ux disease, ventilator dependent respiratory failure. The patient was admitted for further evaluati on and management. HOSPITAL COURSE: The patient was evaluated by Dr. Dowd in gastroenterology consultation. The pat ient underwent, with a notion of gastritis, gastric ulcer, and ischemic ulcers in the colon, per upp er and lower endoscopy. The patient was also evaluated and followed by Dr. Mcbride, in pulmonology consultation. The patient was placed on ventilator support. The patient also had hyperglycemia wit h diabetes mellitus type 2 and requiring insulin. The patient was evaluated and followed by Dr. Milton salvador in endocrinology consultation and was weaned off insulin and started on NPH. The patient was a lso evaluated by Dr. Hernadez in infectious disease consultation and was diagnosed with healthcare-acq uired pneumonia with sputum culture growing multidrug resistant pseudomonas and Proteus mirabilis. The patient was given amikacin and cefepime. The patient was also diagnosed with thrombosis of the right cephalic vein and was started on Lovenox and thrombosis of the left subclavian vein and left c ephalic vein. The patient was started on Eliquis. Overall condition improved. The patient's blood cultures and urine cultures were negative. The patient will be discharged to [facility] today. CONDITION ON DISCHARGE: Hemodynamically stable. ACTIVITY: As patient tolerates. DISCHARGE DIET: Continue G-tube feeding. DISCHARGE MEDICATIONS: 1. Tylenol 650 mg G-tube q.6h. 2. Mucomyst nebulizers. 3. Eliquis 10 mg p.o. until 05/10/2016 and then 5 mg thereafter. 4. Coreg 3.125 mg G-tube b.i.d. 5. Klonopin 0.5 mg G-tube q.8h. 6. Santyl topical ointment. 7. Fentanyl patch. 8. Ferrous sulfate 330 mg G-tube b.i.d. 9. Diflucan 100 mg p.o. daily. 10. Lactobacillus b.i.d. 11. Prevacid 30 mg daily. 12. Xopenex 0.63 q.6h. 13. Ativan 1 mg G-tube q.2h. p.r.n. for agitation. 14. Reglan 10 mg G-tube q.6h. 15. Flagyl 500 mg G-tube q.8h. 16. Multivitamins. 17. NPH 28 units subq q.8h. 18. Nystatin topical. Interdisciplinary plan of care was established for this patient. Plan of care was discussed with Dr Samuel Lorenzo. Dictated By: DELIO GUILLERMO CLAM TREADER for JOSR LORENZO MD, SR/NTS Conf#: [id number] DID#: [id number]
--- NOTE | 2016-05-06 06:55 | PN ---
DATE: 04/28/2016 SUBJECTIVE: No acute events overnight. The patient is lying comfortably in bed. T max this morning 100.1, currently 99.7. Pulse is 121, respirations 26, blood pressure 121/75, oxygen saturation 96% on 30 FIO2. WBC 20.8, H and H 8.5 and 25.8, platelets 200. No shifts, no bands. BUN 14, creatinine 0.52. MICROBIOLOGY: Blood cultures remain negative. Sputum culture grew multidrug resistant Pseudomonas and Proteus mirabilis. INDWELLINGS: Trach, PEG, Rivera. PICC line placed on 04/27/2016. PHYSICAL EXAMINATION: GENERAL: This is a chronically ill-appearing, elderly woman who is in sleeping , arousable and in no distress. HEENT: Head normocephalic. Buccal mucosa dry. CHEST: Rise symmetrical. Breath sounds diminished at bases. HEART: S1, S2. ABDOMEN: EXTREMITIES: Without cyanosis. ASSESSMENT: 1. Low grade fevers and leukocytosis. Etiology unclear. Possible pneumonia. So far blood cultures had been negative 2. Dysphagia. 3. Anemia. 4. Encephalopathy. PLAN: The patient is scheduled for EGD today. Will continue on current abx, vent per pulmonary, GI rec-s Dictated By: JEFF SERNA LAUNCH CHECK OUT for ANGEL REAL/DENNIS Conf#: [id number] DID#: [id number] MTDD
--- NOTE | 2016-05-09 12:11 | PQ ---
Date/Time of Note Date/Time of Note DATE: 05/09/16 TIME: 12:06 Physician Query Documentation Clarification Dear Dr. Suarez, A review of the medical record found a need for documentation clarification. Admitted 04/21 FINAL DIAGNOSES: 1. Acute on chronic ventilator dependent respiratory failure. 2. Community-acquired pneumonia. ID consult - Sepsis w/ fevers + leukocytosis ( progress note 04/27 ) WBC = 11.1 -> 15 ( 04/23) Tx : Cefefime HCL ( 04/23) Vancomycin ( 05/03 ) Please clarify if the following diagnosis: Sepsis Was: ( ) Present on admission ( X ) Not present on admission-------see scanned query document ( ) Clinically undetermined Please provide your response by clicking edit document, making your choice ( x ), click ok and finally click sign. Thank you for your time. Javier ePña RN, BSN, CCS, CCDS Clinical [employer] Information Management, [employer] and Coding Services [phone] Room # [address]~ [id number] JAVIER EPÑA May 09, 2016 12:11
[2016-05-12] MEDS ORDERED: APIXABAN 5 MG TABLET PO SCH (09:00)
== END 2016-05-04 20:20 | DRG 811 ==
LOC: E/R 08:47 → MS2 10:39 → ICU 04-25 17:20 → TEL 05-04 00:20
PROVIDERS: ADMIT Internal Medicine; ATTEND Internal Medicine
PROC: 5A1955Z Respiratory Ventilation, Greater than 96 Consecutive Hours (ICD-10-PCS; principal; 2016-04-21)
PROC: 30233N1 Transfusion of Nonautologous Red Blood Cells into Peripheral Vein, Percutaneous Approach (ICD-10-PCS; 2016-04-24)
PROC: 02HV33Z Insertion of Infusion Device into Superior Vena Cava, Percutaneous Approach (ICD-10-PCS; 2016-04-27)
PROC: 0DBH8ZX Excision of Cecum, Via Natural or Artificial Opening Endoscopic, Diagnostic (ICD-10-PCS; 2016-04-28)
PROC: 0DBL8ZX Excision of Transverse Colon, Via Natural or Artificial Opening Endoscopic, Diagnostic (ICD-10-PCS; 2016-04-28)
PROC: 0DB68ZX Excision of Stomach, Via Natural or Artificial Opening Endoscopic, Diagnostic (ICD-10-PCS; 2016-04-28 12:30)
DX: D50.0 Iron deficiency anemia secondary to blood loss (chronic) (principal); J18.9 Pneumonia, unspecified organism; R65.21 Severe sepsis with septic shock; J96.21 Acute and chronic respiratory failure with hypoxia; A41.9 Sepsis, unspecified organism; G93.40 Encephalopathy, unspecified; N17.9 Acute kidney failure, unspecified; K63.3 Ulcer of intestine; Z99.11 Dependence on respirator [ventilator] status; R65.10 Systemic inflammatory response syndrome (SIRS) of non-infectious origin without acute organ dysfunction; I42.9 Cardiomyopathy, unspecified; I82.611 Acute embolism and thrombosis of superficial veins of right upper extremity; I82.B12 Acute embolism and thrombosis of left subclavian vein; I82.612 Acute embolism and thrombosis of superficial veins of left upper extremity; D64.89 Other specified anemias; E87.5 Hyperkalemia; E86.0 Dehydration; Z93.0 Tracheostomy status; E11.9 Type 2 diabetes mellitus without complications; Z86.73 Personal history of transient ischemic attack (TIA), and cerebral infarction without residual deficits; Z86.718 Personal history of other venous thrombosis and embolism; I10 Essential (primary) hypertension; Z74.01 Bed confinement status; Z87.891 Personal history of nicotine dependence; Z93.1 Gastrostomy status; I48.0 Paroxysmal atrial fibrillation; Z79.02 Long term (current) use of antithrombotics/antiplatelets; G83.9 Paralytic syndrome, unspecified; E66.8 Other obesity; Z68.33 Body mass index [BMI] 33.0-33.9, adult; J40 Bronchitis, not specified as acute or chronic; B96.5 Pseudomonas (aeruginosa) (mallei) (pseudomallei) as the cause of diseases classified elsewhere; B96.4 Proteus (mirabilis) (morganii) as the cause of diseases classified elsewhere; D63.8 Anemia in other chronic diseases classified elsewhere; K27.9 Peptic ulcer, site unspecified, unspecified as acute or chronic, without hemorrhage or perforation; K29.70 Gastritis, unspecified, without bleeding; D12.3 Benign neoplasm of transverse colon; Y95 Nosocomial condition
CPT/HCPCS: 36415; 36430; 36569; 36600; 71010; 76937; 80048; 80053; 80150; 81003; 82270; 82607; 82728; 82746; 82803; 82962; 83010; 83036; 83540; 83690; 83735; 84100; 84145; 84484; 85025; 85045; 85610; 86850; 86900; 86901; 86920; 87040; 87070; 87075; 87081; 87086; 93005; 93306; 93970; 94002; 94003; 94640; 94664; 96360; C9113; J0278; J0692; J1650; J1815; J1940; J2310; J2997; J3370; J7040; J7042; P9016

== ENCOUNTER 2016-06-03 11:52 | Day surgery (SDC) | payer BC, MEDICARE, OTHER ==
[~2016-06-03] VITALS: Ht 172.7 cm; Wt 100.0 kg
[2016-06-03 10:27] VITALS: BP 113/52; PULSE 103; RESP 40
[2016-06-03 11:04] VITALS: Ht 172.7 cm; Wt 100.0 kg
[~2016-06-03 11:52] MED LIST: CARV6.2579 GTB; CHLO473M4 MM; CLON-379 GTB; CLON0.5T4 GTB; DOCU-159 GTB; ENOX120D8 SQ; FAMO20TA18 GTB; GLUC1VIA6 IJ; HEPARIN 1000 UNITS/NS (A-LINE) 1,000 ML ONE; HYDR-902 GTB; INSU100V3 IJ; IODIXANOL LOCM 100 ML BTL ONE; IPRA3AMP INHALATION; LACT1CAP57 GTB; LANS30CA GTB; LIDOCAINE 1% (MDV) 20 ML INJ ONE; LINA5TAB GTB; LISI-313 GTB; LORA1TAB GTB; METF500T4 GTB; METO10TA92 GTB; MULT9LIQ4 GTB; NITR0.4T6 SL; NPH,100V SQ; QUET25TA33 GTB; SPIR100T31 GTB; UDFER GTB; [UNRECOGNIZED DRUG - CODE] TD
[2016-06-03 12:35] VITALS: RESP 27
[2016-06-03] MEDS ORDERED: FENTAnyl 50 MCG/ML VIAL ONE (12:43)
[2016-06-03] MEDS ORDERED: MIDAZOLAM 1 MG/ML 2 ML INJ ONE ×2 (12:43→13:12)
[2016-06-03 12:55] VITALS: RESP 20
[2016-06-03] MEDS ORDERED: IODIXANOL LOCM 100 ML BTL ONE (13:05)
[2016-06-03] MEDS ORDERED: SOD CHLORIDE 0.9% 500 ML ONE (13:05)
--- NOTE | 2016-06-03 15:28 | OPR ---
DATE OF OPERATION: PREOPERATIVE DIAGNOSIS: Left lower extremity ischemia. POSTOPERATIVE DIAGNOSIS: Left lower extremity ischemia. PROCEDURE: 1. Abdominal aortogram. 2. Pelvic angiogram. 3. Bilateral lower extremity runoff. 4. Ultrasound guidance into the central artery on the right. 5. Ultrasound guidance into the left femoral artery. 6. Catheter introduction into the abdominal aorta. 7. Fluoroscopy. 8. Conscious sedation for 1 hour. 9. Interpretation and supervision of the angiogram. OPERATIVE TECHNIQUE: The patient was placed in the supine position, prepped and draped in the usual sterile fashion. 1% lidocaine was used throughout the operation for local anesthesia. Under ultras onic guidance, access was gained in the right common femoral artery. The guidewire was advanced thr ough without any difficulty. The subcutaneous tissues was dilated. A 5-St Helenian sheath was advanced over a guidewire and a rim catheter advanced into the abdominal aorta. Aortogram was done, followed by runoff. Next, access was gained in the left femoral artery. Guidewire would not advance. This was done und er fluoroscopic guidance. Interpretation and supervision of the abdominal aortogram revealed the aorta with calcified lesions, about 30%, on the left side; the left common iliac artery occluded, the internal iliac artery occlu ded, the external iliac artery occluded, the common femoral artery occluded. the profunda was faint. The superficial femoral artery had minimal disease, about 30%, down to the popliteal, which was al so diseased about 30%. The trifurcation on the left side opened up; however, the contrast could not get down beyond the mid level of the leg secondary to proximal obstruction. On the right side, the right common iliac artery was normal, external iliac artery normal, internal iliac artery normal, common femoral artery normal, profunda normal. The superficial femoral artery h ad minimal disease, about 20% to 30%. The popliteal artery with 20% to 30% lesions. Again, the con trast did not achieve full resection in the right leg. Access was attempted on the left side to pro ceed with angioplasty and possible stent of the left iliac artery; however, it was unsuccessful ryne use of chronic obstruction. This patient's options are either a femoral-femoral bypass or an axillofemoral bypass. Will discuss with Dr. Suarez and the referring physicians. Dictated By: MIKHAIL CUEVAS MD FM/NTS Conf#: [id number] [facility]#: [id number]
== END 2016-06-03 13:45 | disposition short-term general hospital (02) ==
LOC: CCL 11:52
PROVIDERS: ATTEND Thoracic Surgery (Cardiothoracic Vascular Surgery)
DX: I99.8 Other disorder of circulatory system (principal)
CPT/HCPCS: 36200; 75716; 94002; C1769; C1887; C1894; J1644; J2250; J3010; J7040; Q9967

== ENCOUNTER 2016-07-06 20:07 | Inpatient (IN) | payer BC, MEDICARE ==
[~2016-07-06] VITALS: Ht 162.6 cm; Wt 99.7 kg
[~2016-07-06 20:07] MED LIST changes: -HEPARIN 1000 UNITS/NS (A-LINE) 1,000 ML ONE; -IODIXANOL LOCM 100 ML BTL ONE; -LIDOCAINE 1% (MDV) 20 ML INJ ONE
[2016-07-06] MEDS ORDERED: CARV3.1260 GTB (20:37)
[2016-07-06] MEDS ORDERED: DOCU-159 GTB (20:38)
[2016-07-06] MEDS ORDERED: QUET25TA26 GTB (20:42)
[2016-07-06] MEDS ORDERED: ACID1TAB15 GTB (20:43)
[2016-07-06] MEDS ORDERED: APIX5TAB GTB (20:44)
[2016-07-06] MEDS ORDERED: BISA10SU55 RC (20:45)
[2016-07-06] MEDS ORDERED: LANT3I SC (20:47)
[2016-07-06] MEDS ORDERED: NA P135E RC (20:47)
[2016-07-06] MEDS ORDERED: MAGN400O4 GTB (20:48)
[2016-07-06] MEDS ORDERED: CEFEPIME 2GM/50 ML (PMX) 50 ML IVPB STA (20:52)
[2016-07-06] MEDS ORDERED: VANCOMYCIN 1 GM (PMX) 250 ML IVPB STA (20:52)
[2016-07-06] MEDS ORDERED: SODIUM CHLORIDE 0.9% 1L BAG IV* STA (20:52)
[2016-07-06] MEDS ORDERED: MULT9LIQ3 GTB (20:53)
[2016-07-06] MEDS ORDERED: HYDR-906 GTB (20:55)
[2016-07-06] MEDS ORDERED: NPH,100I5 SQ (20:56)
[2016-07-06] MEDS ORDERED: ACET-2047 GTB ×2 (20:58→20:59)
[2016-07-06] MEDS ORDERED: ACET-141 GTB (20:59)
[2016-07-06] MEDS ORDERED: CRAN3875 GTB (21:01)
[2016-07-06] MEDS ORDERED: VALS80TA2 GTB (21:02)
[2016-07-06] MEDS ORDERED: ASCO500S2 GTB (21:03)
[2016-07-06] MEDS ORDERED: ZINC220T GTB (21:04)
[2016-07-06] MEDS ORDERED: CRAN425C GTB (21:05)
[2016-07-06] MEDS ORDERED: LEVA0.634 INHALATION (21:06)
[2016-07-06 21:27] LABS: ADD SCAN DIFF NO
[2016-07-06 21:31] LABS: HEMATOCRIT 27.2 % (37.0-47.0); HEMOGLOBIN 8.1 g/dl (12.0-16.0); MEAN CORPUSCULAR HEMOGLOBIN 29.5 pg (29.0-33.0); MEAN CORPUSCULAR HGB CONC 29.8 g/dl (32.0-37.0); MEAN CORPUSCULAR VOLUME 98.9 fl (82.0-101.0); MEAN PLATELET VOLUME 11.8 fl (7.4-10.4); RED BLOOD COUNT 2.75 10^6/ul (4.20-5.40); RED CELL DISTRIBUTION WIDTH 17.1 % (11.5-14.5); WHITE BLOOD COUNT 18.2 10^3/ul (4.8-10.8)
[2016-07-06 21:35] LABS: PLATELET COUNT 239 10^3/UL (140-415)
[2016-07-06 21:43] LABS: AADO2 Arterial 137.3 mmHg (7.0-24.0); Arterial Base Excess 5.6 mmol/L (-3.0-3); Arterial COHb 0.3 % (0.0-3.0); Arterial Fraction of Oxyhgb 95.6 % (93.0-99.0); Arterial MetHb 0.3 % (0.0-1.5); MODE VENT - AC/VC+
[2016-07-06 21:46] LABS: ALBUMIN 3.4 g/dl (3.3-4.9); INR 1.54; PROTIME 18.6 Sec (12.2-14.2); PT RATIO 1.5
[2016-07-06 21:47] LABS: PARTIAL THROMBOPLASTIN TIME 28.7 Sec (25.0-35.0)
[2016-07-06 21:49] LABS: ALBUMIN/GLOBULIN RATIO 0.77; CALCIUM 10.1 mg/dl (8.4-10.2); CREATININE 0.93 mg/dl (0.44-1.00); TOTAL PROTEIN 7.8 g/dl (6.1-8.1)
[2016-07-06] MEDS ORDERED: HYDROCODONE/APAP (5/325) TAB PO ONE (22:00)
[2016-07-06] MEDS ORDERED: clonAZEPAM 0.5 MG TAB PO ONE (22:00)
[2016-07-06 22:01] LABS: TROPONIN-I 0.019 ng/ml (0.00-0.12)
--- NOTE | 2016-07-06 22:14 | RADRPT ---
PROCEDURE: XR Chest. CLINICAL INDICATION: Possible sepsis. TECHNIQUE: Single frontal view of the chest was obtained COMPARISON: 05/26/2016. FINDINGS: Tracheostomy tube of midline. Cardiomegaly and atherosclerotic calcifications in the thoracic aorta . Mild pulmonary vascular ingestion and patchy air space disease. There is no pleural effusion or pneumothorax. IMPRESSION: Mild failure. RPTAT: [facility] Physician Michelet Date Time Electronically viewed and signed by Santhosh Schafer Physician on 07/06/2016 22:14 RS/
--- NOTE | 2016-07-06 22:24 | ERA ---
ER Documentation Chief Complaint Date/Time DATE: 07/06/16 TIME: 22:15 Chief Complaint shortness of breath HPI This is a 65-year-old female with a history of hypertension, diabetes, atrial fibrillation, PE status post IVC filter, cardiomyopathy, right MCA stroke with hemorrhagic conversion, craniotomy, now with chronic left-sided deficits, chronic respiratory failure with a trach on vent, presenting from her [place] [facility] facility after an apneic event. She reportedly turned blue. After stimulation she was able to breathe again. The history is otherwise limited as the patient is nonverbal. ROS Limited review of systems as the patient is nonverbal. Medications Home Meds Reported Medications Levalbuterol Hcl* (Levalbuterol Hcl*) 0.63 Mg/3 Ml Vial.neb, 0.63 MG INHALATION Q6H Y for WHEEZING AND SOB, VIAL 07/06/16 Cranberry Extract (Cranberry) 425 Mg Capsule, 425 MG GTB DAILY, CAP 07/06/16 Zinc Sulfate* (Zinc Sulfate*) 220 Mg Tablet, 220 MG GTB DAILY, TAB 07/06/16 Ascorbic Acid* (Vitamin C* Liq) 500 Mg/5 Ml Syrup, 500 MG GTB DAILY, ML 07/06/16 Valsartan* (Diovan*) 80 Mg Tablet, 80 MG GTB DAILY, TAB hold if sbp below 110 hr below 60 07/06/16 Cran/Vitc/Mannose/Inulin/Brom (Uti-Stat Liquid) 3,875 Mg/30 Ml Liquid, 3875 MG GTB BID 07/06/16 Acetaminophen* (Acetaminophen*) 500 MG Extra Strength Tablet, 1000 MG GTB Q6H Y for MODERATE PAIN LEVEL 4-6, TAB 07/06/16 Acetaminophen* (Acetaminophen*) 650 Mg Tablet, 650 MG GTB Q4 Y for MILD PAIN LEVEL 1-3, #30 TAB 07/06/16 Acetaminophen* (Acetaminophen*) 650 Mg Tablet, 650 MG GTB trach change Y for PAIN, #30 TAB give 30 min prior to trach change 07/06/16 NPH, Human Insulin Isophane (Humulin N Kwikpen) 100 Unit/1 Ml Insuln.pen, 66 UNIT SQ Q6, EA 07/06/16 Hydrocodone/Acetaminophen ([place] 5-325 Tablet) 1 Each Tablet, 1 EACH GTB Q4H WHILE AWAKE Y for SEVERE PAIN LEVEL 7-10, TAB 07/06/16 Multivit &Minerals/Ferrous Fum (COMPLETE MULTIVIT-MINERAL LIQ) 9 Mg/15 Ml Liquid , 3 MG GTB DAILY 07/06/16 Magnesium Hydroxide* (Milk Of Magnesia*) 400 Mg/5 Ml Oral.susp, 30 ML GTB DAILY Y for CONSTIPATION, ML 07/06/16 Insulin Glargine* (Lantus*) 100 Unit/Ml Soln, 10 UNIT SC QHS, #1 VIAL 07/06/16 Na Phos,M-B/Na Phos,Di-Ba (ENEMA READY TO USE) 135 Ml Enema, 135 ML RC prn Y for severe constipation, ENEMA 07/06/16 Bisacodyl (Dulcolax) 10 Mg Supp.rect, 10 MG RC prn for CONSTIPATION, SUPP.RECT 07/06/16 Apixaban* (Eliquis*) 5 Mg Tablet, 5 MG GTB BID, TAB 07/06/16 Acidophilus/Pectin, Adelino (ACIDOPHILUS-PECTIN CAPTAB) 1 Each Tablet, 1 EACH GTB BID, TAB 07/06/16 Quetiapine Fumarate* (Seroquel*) 25 Mg Tablet, 12.5 MG GTB DAILY, #30 TAB 07/06/16 Docusate Sodium* (Docusate Sodium*) 100 Mg Capsule, 100 MG GTB DAILY, #30 CAP 07/06/16 Carvedilol* (Carvedilol*) 3.125 Mg Tablet, 3.125 MG GTB BID, #60 TAB 07/06/16 Chlorhexidine Gluconate (Peridex) 473 Ml Mouthwash, 15 ML MM Q12, BOTTLE 04/21/16 Metoclopramide* (Reglan*) 10 Mg Tablet, 10 MG GTB Q6 Y for NAUSEA AND/OR VOMITING, TAB 04/21/16 Lansoprazole* (Lansoprazole*) 30 Mg Capsule.dr, 30 MG GTB DAILY, CAP 04/21/16 Glucagon HCl (Glucagon HCl) 1 Mg Vial, 1 MG IJ DAILY Y for LOW GLUCOSE, VIAL 04/21/16 Ferrous Sulfate (Ferrous Sulfate) 300 Mg/5 Ml Liquid, 330 MG GTB BID 04/21/16 Fentanyl Patch* (Duragesic Patch*) 50 Mcg/Hr Transdermal Patch, 1 PATCH TD Q72H , PATCH 04/21/16 Clonazepam* (Clonazepam*) 0.5 Mg Tablet, 0.5 MG GTB TID, TAB 04/21/16 Discontinued Reported Medications Spironolactone* (Spironolactone*) 100 Mg Tablet, 25 MG GTB DAILY, TAB 04/21/16 Quetiapine Fumarate* (Quetiapine Fumarate*) 25 Mg Tablet, 12.5 MG GTB BID, TAB 04/21/16 Hydrocodone/Acetaminophen ([place] 10-325 Tablet) 1 Each Tablet, 1 EACH GTB Q4 Y for PAIN, TAB 04/21/16 Nitroglycerin* (Nitroglycerin* SL) 0.4 Mg Tab.subl, 0.4 MG SL Q5MIN Y for CHEST PAIN, BOTTLE 04/21/16 Multivit &Minerals/Ferrous Fum (MULTIVITAMIN LIQUID) 9 Mg/15 Ml Liquid, 30 ML GTB DAILY 04/21/16 Metformin* (Glucophage*) 500 Mg Tab, 1000 MG GTB BID, #30 TAB 04/21/16 Lorazepam* (Lorazepam*) 1 Mg Tablet, 1 MG GTB Q2HWA Y for ANXIETY, #30 TAB 04/21/16 Lisinopril* (Lisinopril*) 5 Mg Tablet, 5 MG GTB DAILY, #30 TAB HOLD IF SBP<110 OR HR<60 04/21/16 Linagliptin (TRADJENTA) 5 Mg Tablet, 5 MG GTB DAILY, TAB 04/21/16 Lactobacillus Rhamnosus* (Culturelle*) 1 Each Cap.sprink, 1 CAP GTB BID, CAP 04/21/16 Insulin Regular, Human (Humulin R) 100 Unit/1 Ml Vial, 0-12 UNIT IJ BID WITH MEALS, VIAL 04/21/16 Insulin NPH Human Isophane (Humulin N) 100 Unit/1 Ml Vial, 18 UNIT SQ BID, VIAL 04/21/16 Famotidine* (Famotidine*) 20 Mg Tablet, 20 MG GTB BID, #60 TAB 04/21/16 Enoxaparin Sodium* (Lovenox*) 120 Mg/0.8 Ml Disp.syrin, 90 MG SQ BID, SYR 04/21/16 Ipratropium-Albuterol (Ipratropium-Albuterol) 0.5-3 Mg/3 Ml Ampul.neb, 1 VIAL INHALATION Q2HWA Y for WHEEZING AND SOB, #30 VIAL 04/21/16 Docusate Sodium* (Docusate Sodium*) 100 Mg Capsule, 100 MG GTB BID Y for CONSTIPATION, #60 CAP 04/21/16 Clonidine Hcl* (Clonidine Hcl*) 0.1 Mg Tab, 0.1 MG GTB Q6 Y for ELEVATED BLOOD PRESSURE, TAB HOLD IF SBP<110 04/21/16 Carvedilol* (Carvedilol*) 6.25 Mg Tablet, 6.25 MG GTB BID, #60 TAB 04/21/16 Allergies Allergies: Coded Allergies: codeine (Verified Allergy, Unknown, 07/06/16) PMhx/Soc History of Surgery: Yes (Knee replacement, back fusion, hysterectoy, G tube and trach placement) Anesthesia Reaction: No Hx Neurological Disorder: Yes (Encephalpathy , CVA 2016) Hx Respiratory Disorders: Yes (Chronic Vent / Trach, PNA, COPD) Hx Cardiac Disorders: Yes (Atheroschlerosis, HTN) 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, VRE, Pseudmonas) Hx Alcohol Use: No Hx Substance Use: No Hx Tobacco Use: No Smoking Status: Never smoker FmHx Family History: other (Unable to obtain) Physical Exam Vitals Vital Signs Date Time Temp Pulse Resp B/P Pulse Ox O2 Delivery O2 Flow Rate FiO2 07/06/16 20:16 98.6 124 23 94/63 100 Physical Exam Const: Chronically ill-appearing, unable to move the left side of her body, very active in bed trying to turn herself, nontoxic Head: Atraumatic Eyes: Normal Conjunctiva ENT: Dry oral mucosa Neck: Full range of motion. Trach in place Resp: Diminished breath sounds bilaterally, but poor respiratory effort, no audible wheezing, rhonchi, Rales Cardio: Tachycardic, regular rhythm, no murmurs Abd: Soft, non tender, non distended. Normal bowel sounds Skin: Left foot gangrene, no other rashes Back: No midline or flank tenderness Ext: No cyanosis, or edema. Left foot gangrene with dressing Neur: Awake and alert, nonverbal, moving right upper and lower extremities spontaneously, no movement in the left side Result Diagram: 07/06/16205807/06/162058 Results 24 hrs Laboratory Tests Test 07/06/16 20:52 07/06/16 20:59 07/06/16 21:10 07/06/16 22:25 Blood Gas Specimen Source Blood arterial Arterial Blood Date Drawn 07/06/2016 9:30:35 PM Arterial Blood pH (Temp corrected) 7.410 Arterial Blood pCO2 (Temp correct) 50.0mmhg Arterial Blood pO2 (Temp corrected) 90.4mmHG Arterial Blood HCO3 31.0mmol/L Arterial Blood Base Excess 5.6mmol/L Arterial Blood Oxygen Saturation 96.2mmHG Renard Test N/A Arterial Blood Gas Puncture Site LB Arterial Blood Carboxyhemoglobin 0.3% Arterial Blood Methemoglobin 0.3% Blood Gas A-a O2 Differential 137.3mmHg Oxyhemoglobin Percent 95.6% Total Hemoglobin 9.0g/dl Blood Gas Temperature 37.0C Blood Gas Respiration Rate 12.0 Blood Gas Actual Respiration Rate 23 Blood Gas Modality VENT - AC/VC+ FiO2 40.0% Blood Gas Inspiratory Time 0.7 Blood Gas Tidal Volume 500.0mL Blood Gas Low PEEP Setting 5.0cmH2O Blood Gas Inspiratory Pressure 30.0 Blood Gas Notified Whom AA Blood Gas Notified Time 07/06/2016 9:43:31 PM White Blood Count 18.210^3/ul Red Blood Count 2.7510^6/ul Hemoglobin 8.1g/dl Hematocrit 27.2% Mean Corpuscular Volume 98.9fl Mean Corpuscular Hemoglobin 29.5pg Mean Corpuscular Hemoglobin Concent 29.8g/dl Red Cell Distribution Width 17.1% Platelet Count 26556^3/UL Mean Platelet Volume 11.8fl Prothrombin Time 18.6Sec Prothrombin Time Ratio 1.5 INR International Normalized Ratio 1.54 Activated Partial Thromboplast Time 28.7Sec Sodium Level 132mmol/L Potassium Level 5.0mmol/L Chloride Level 90mmol/L Carbon Dioxide Level 34mmol/L Anion Gap 13 Blood Urea Nitrogen 43mg/dl Creatinine 0.93mg/dl Glucose Level 123mg/dl Calcium Level 10.1mg/dl Total Bilirubin 0.0mg/dl Direct Bilirubin 0.00mg/dl Indirect Bilirubin 0.0mg/dl Aspartate Amino Transf (AST/SGOT) 51IU/L Alanine Aminotransferase (ALT/SGPT) 32IU/L Alkaline Phosphatase 93IU/L Troponin I 0.019ng/ml Total Protein 7.8g/dl Albumin 3.4g/dl Globulin 4.40g/dl Albumin/Globulin Ratio 0.77 Lactic Acid Level 3.5mmol/L Urine Color LT. YELLOW Urine Clarity CLEAR Urine pH 6.0 Urine Specific Marion 1.020 Urine Ketones NEGATIVE Urine Nitrite NEGATIVE Urine Bilirubin NEGATIVE Urine Urobilinogen 0.2 E.U./dL Urine Leukocyte Esterase TRACE Urine Microscopic RBC Pending Urine Microscopic WBC Pending Urine Hemoglobin NEGATIVE Urine Glucose NEGATIVE% Urine Total Protein TRACE Current Medications Medications (Trade) Dose Ordered Sig/Josefina Route PRN Reason Start Time Stop Time Status Last Admin Dose Admin Sodium Chloride 3090 ml 3,090 ml BOLUS OVER 2 HOURS STAT IV* 07/06/16 20:52 07/06/16 20:55 DC 07/06/16 21:31 Vancomycin HCl 250 ml @ 125 mls/hr ONCE STAT IVPB 07/06/16 20:52 07/06/16 22:51 DC 07/06/16 23:04 Cefepime HCl (Maxipime 2gm/50 ml (Pmx)) 50 ml @ 100 mls/hr ONCE STAT IVPB 07/06/16 20:52 07/06/16 21:21 DC 07/06/16 21:38 Clonazepam (Klonopin) 0.5 mg ONCE ONCE PO 07/06/16 22:00 07/06/16 22:01 DC 07/06/16 22:01 Acetaminophen/ Hydrocodone Bitart 1 tab 1 tab ONCE ONCE PO 07/06/16 22:00 07/06/16 22:01 DC 07/06/16 22:00 Levofloxacin/ Dextrose (Levaquin 750 Mg/ D5W 150 ml (Pmx)) 150 ml @ 100 mls/hr ONCE ONCE IVPB 07/06/16 23:00 07/07/16 00:29 Ondansetron HCl (Zofran Inj) 4 mg ER BRIDGE PRN IV NAUSEA AND/OR VOMITING 07/06/16 23:00 07/07/16 22:59 Acetaminophen (Tylenol Tab) 650 mg ER BRIDGE PRN PO MILD PAIN/FEVER 07/06/16 23:00 07/07/16 22:59 Procedures/MDM EMERGENT LABS AND DIAGNOSTIC STUDIES: Lab Results above were reviewed and interpreted by me. White blood cell count elevated, anemic, lactic acidosis Urinalysis is pending 12-lead EKG was interpreted by Clarissa Santoyo MD: Sinus tachycardia at 126 bpm Normal axis Normal intervals No acute ST or T wave changes suggestive of acute ischemia or STEMI. Radiology Results as interpreted by Radiology below were reviewed by Liss Santoyo MD: Chest x-ray: Mild failure. Initial Nursing notes reviewed. Previous Medical Records requested via the Electronic Health Record. EMERGENCY DEPARTMENT COURSE / MEDICAL DECISION MAKING: Patient is presenting with signs of severe sepsis. Source is unclear but may be pulmonary versus urinary tract as the patient has had multiple pneumonias and urine UTIs in the past. Broad-spectrum coverage was started with vancomycin , cefepime, levofloxacin. patient's infectious symptoms have not stabilized and the patient is at risk of rapid decompensation. The patient will be admitted for careful hydration, antibiotic therapy, and infectious source control. Severe Sepsis Assessment: Infectious Source: Unclear source, possibly pulmonary End organ damage indicated by: Lactate > 2.0 mmol/L Severe Sepsis Managment: Blood Cultures X 2 before broad spectrum antibiotics initiated within 3 hours of recognition. 30 ml/kg NS bolus Completed Initial Lactate: 3.5 Repeat Lactate pending Critical Care: Time: 45 minutes Treatments/Evaluations: Emergent fluid management, while maintaining close respiratory support. Immediate broad spectrum antibiotic therapy. Simultaneous assessment for possible sources in order to direct therapy. Consideration for invasive and chemical support to prevent respiratory or cardiac collapse. Septic Shock Assessment ( @ 2322): Hypotension (SBP < 90 or 40 mmHg drop, MAP < 65): No Lactic acid > 4.0 pending Accepting Care Team: Current data and ongoing care discussed. Time: Time of admission Primary Provider: [XOXOXO] Consulting: [XOXOXO] Outstanding Data: Urinalysis, blood cultures, urine culture Per patient's daughter, PATIENT IS DNR Departure Diagnosis: Primary Impression: Severe sepsis Additional Impression: Chronic respiratory failure Qualified Code: J96.10 - Chronic respiratory failure, unspecified whether with hypoxia or hypercapnia Condition: Serious TOBY SANTOYO MD Jul 06, 2016 22:24
[2016-07-06] MEDS ORDERED: ACETAMINOPHEN 325 MG TAB PO PRN (23:00)
[2016-07-06] MEDS ORDERED: ONDANSETRON 4 MG INJ IV PRN (23:00)
[2016-07-06] MEDS ORDERED: LEVOFLOXACIN 750MG/D5W (PMX) 150 ML IVPB ONE (23:00)
[2016-07-06 23:07] LABS: ADD UMIC YES; URINE BILIRUBIN (Dip) NEGATIVE (NEGATIVE); URINE BLOOD (Dip) NEGATIVE (NEGATIVE); URINE COLOR LT. YELLOW (YELLOW); URINE GLUCOSE (Dip) NEGATIVE (NEGATIVE); URINE KETONES (Dip) NEGATIVE (NEGATIVE); URINE LEUKOCYTE ESTERASE (Dip) TRACE (NEGATIVE); URINE NITRITE (Dip) NEGATIVE (NEGATIVE); URINE TOTAL PROTEIN (Dip) TRACE (NEGATIVE); URINE UROBILINOGEN (Dip) 0.2 E.U./dL (0.1-1.0)
[2016-07-06 23:21] LABS: SQUAMOUS EPITHELIAL CELL,UR FEW; URINE RBCS NONE SEEN /HPF (0)
[2016-07-06 23:53] LABS: EOSINOPHILS # 0.5 10^3/ul (0.0-0.5); LYMPHOCYTES # 2.9 10^3/ul (0.8-2.9); MONOCYTE # 1.5 10^3/ul (0.3-0.9); NEUTROPHIL # 13.3 10^3/ul (1.6-7.5)
[2016-07-07] VITALS (13 sets, daily range): BP systolic 83–114; BP diastolic 44–57; PULSE 100–106; RESP 18–30; TEMP 102.5; Ht 162.6 cm; Wt 99.7 kg
[2016-07-07] MEDS ORDERED: MAGNESIUM HYDROXIDE 30ML CUP GTB PRN (12:00)
[2016-07-07] MEDS ORDERED: ASCORBIC ACID 100 MG/ML 120ML BTL GTB SCH (12:00)
[2016-07-07] MEDS ORDERED: BISACODYL 10 MG SUPP PR SCH (12:00)
[2016-07-07] MEDS ORDERED: ACETAMINOPHEN 325 MG TAB GTB PRN (12:00)
--- NOTE | 2016-07-07 12:40 | CONS ---
Date/Time of Note Date/Time of Note DATE: 07/07/16 TIME: 12:35 Assessment/Plan Assessment/Plan Additional Assessment/Plan Chest x-ray was reviewed from yesterday which is essentially unremarkable. Ventilator settings; AC of 12, tidal volume 500, PEEP of 5, 40% FiO2. Assessment and recommendations; 1. Patient admitted for an apneic event details are not available. Patient has been on a ventilator also that would make it very unlikely. 2. Gangrene of the left foot. Family has decided not to pursue any further treatment. 3. Underlying obesity, atrial fibrillation, chronic respiratory failure, extensive CVA. 4. Currently no evidence of any pneumonia. However patient does have decubitus ulcers as well as gangrene of the foot that may be a source of sepsis and infection, patient does have leukocytosis. Currently on appropriate antibiotic regimen. Continue current supportive care. Prognosis is very poor. Consultation Date/Type/Reason Admit Date/Time Date of Consultation: Jul 07, 2016 Type of Consultation: Pulmonary/critical care Reason for Consultation Pulmonary consultation requested for evaluation of chronic respiratory failure, patient admitted for an apparent apneic event as a nursing facility. History presenting; patient is a 66-year-old white lady who [facility] after the nursing staff noted apnea on the ventilator. Details are not available. By the time I saw the patient and ER the patient is awake appears quite agitated is on ventilator via tracheostomy. Patient is a very poor historian on account of extensive CVA and history was obtained from medical records.. Past medical history; 1. Chronic respiratory failure, ventilator dependent. 2. Tracheostomy. 3. G-tube placement. 4. Chronic atrial fibrillation. 5. History of PE and DVT status post Brady filter placement. 6. Diabetes. 7. Hypertension. 8. Morbid obesity. 9. Left lower extremity gangrene. 10. History of extensive CVA. Medications; were reviewed. Allergies; are to codeine. Social history; noncontributory. Family history; various family members have had diabetes hypertension. Occupational history; not available. Review of systems; currently unable to be obtained. General exam; elderly lady morbidly obese on ventilator via tracheostomy. With episodes of agitation seen off and on. Past Surgical History Past Surgical Hx: other Social History Smoking Status: Never smoker Exam/Review of Systems Vital Signs Vitals Vital Signs Date Time Temp Pulse Resp B/P Pulse Ox O2 Delivery O2 Flow Rate FiO2 07/07/16 11:12 110 28 100 40 07/07/16 10:00 98.3 119/53 Mechanical Ventilator 10.0 Intake and Output 07/06/16 07/06/16 07/07/16 15:00 23:00 07:00 Intake Total 50 ml 3490 ml Balance 50 ml 3490 ml Exam HEENT exam; supple neck, JVD difficult to see because of short neck. Tracheostomy in place with clean insertion site. Pupils are small bilaterally. And has multiple missing teeth. No thyromegaly. No neck bruits. No lymphadenopathy. Chest examination; diminished but clear breath sounds bilaterally. S1-S2 audible, irregular rhythm. Abdomen examination; grossly protuberant. G-tube in place. Bowel sounds audible. Extremity examination; left foot is wrapped in a dressing. Pulses are not palpable in lower extremities. There is trace edema involving the right lower extremity. There is no clubbing. POLICE SUPERINTENDENT examination; patient does not follow any commands. Results Result Diagram: 07/06/16205807/06/162058 Results 24 hrs Laboratory Tests Test 07/06/16 20:52 07/06/16 20:59 07/06/16 21:10 07/06/16 22:25 Blood Gas Specimen Source Blood arterial Arterial Blood Date Drawn 07/06/2016 9:30:35 PM Arterial Blood pH (Temp corrected) 7.410 Arterial Blood pCO2 (Temp correct) 50.0 H Arterial Blood pO2 (Temp corrected) 90.4 Arterial Blood HCO3 31.0 H Arterial Blood Base Excess 5.6 H Arterial Blood Oxygen Saturation 96.2 Renard Test N/A Arterial Blood Gas Puncture Site LB Arterial Blood Carboxyhemoglobin 0.3 Arterial Blood Methemoglobin 0.3 Blood Gas A-a O2 Differential 137.3 H Oxyhemoglobin Percent 95.6 Total Hemoglobin 9.0 L Blood Gas Temperature 37.0 Blood Gas Respiration Rate 12.0 Blood Gas Actual Respiration Rate 23 Blood Gas Modality VENT - AC/VC+ FiO2 40.0 Blood Gas Inspiratory Time 0.7 Blood Gas Tidal Volume 500.0 Blood Gas Low PEEP Setting 5.0 Blood Gas Inspiratory Pressure 30.0 Blood Gas Notified Whom AA Blood Gas Notified Time 07/06/2016 9:43:31 PM White Blood Count 18.2 #H Red Blood Count 2.75 L Hemoglobin 8.1 L Hematocrit 27.2 L Mean Corpuscular Volume 98.9 Mean Corpuscular Hemoglobin 29.5 Mean Corpuscular Hemoglobin Concent 29.8 L Red Cell Distribution Width 17.1 H Platelet Count 239 # Mean Platelet Volume 11.8 H Neutrophils % 73.0 Lymphocytes % 16.0 Monocytes % 8.0 Eosinophils % 3.0 Neutrophils # 13.3 H Lymphocytes # 2.9 Monocytes # 1.5 H Eosinophils # 0.5 Prothrombin Time 18.6 H Prothrombin Time Ratio 1.5 INR International Normalized Ratio 1.54 Activated Partial Thromboplast Time 28.7 Sodium Level 132 L Potassium Level 5.0 Chloride Level 90 L Carbon Dioxide Level 34 H Anion Gap 13 Blood Urea Nitrogen 43 H Creatinine 0.93 Glucose Level 123 Calcium Level 10.1 Total Bilirubin 0.0 L Direct Bilirubin 0.00 Indirect Bilirubin 0.0 Aspartate Amino Transf (AST/SGOT) 51 H Alanine Aminotransferase (ALT/SGPT) 32 Alkaline Phosphatase 93 Troponin I 0.019 Total Protein 7.8 Albumin 3.4 Globulin 4.40 H Albumin/Globulin Ratio 0.77 Lactic Acid Level 3.5 H Urine Color LT. YELLOW Urine Clarity CLEAR Urine pH 6.0 Urine Specific Hecker 1.020 Urine Ketones NEGATIVE Urine Nitrite NEGATIVE Urine Bilirubin NEGATIVE Urine Urobilinogen 0.2 E.U./dL Urine Leukocyte Esterase TRACE H Urine Microscopic RBC NONE SEEN Urine Microscopic WBC 2-5 Urine Squamous Epithelial Cells FEW Urine Hemoglobin NEGATIVE Urine Glucose NEGATIVE Urine Total Protein TRACE Test 07/06/16 22:59 07/07/16 02:20 Lactic Acid Level 1.3 1.4 Medications Medications Current Medications Acetaminophen (Tylenol Tab) 650 mg Q4 PRN GTB MILD PAIN LEVEL 1-3; Start at 12:00; Status UNV Acetaminophen (Tylenol Tab) 650 mg Q6 PRN GTB PAIN; Start 07/07/16 at 12:00; Status UNV Apixaban (Eliquis) 5 mg BID GTB ; Start 07/07/16 at 12:00; Status UNV Ascorbic Acid (Vitamin C) 500 mg DAILY GTB ; Start 07/07/16 at 12:00; Status UNV Bisacodyl (Dulcolax Supp) 10 mg PRN MS ; Start 07/07/16 at 12:00; Status UNV Carvedilol (Coreg) 3.125 mg BID GTB ; Start 07/07/16 at 12:00; Status UNV Chlorhexidine Gluconate (Peridex) 15 ml Q12 MM ; Start 07/07/16 at 21:00; Status UNV Clonazepam (Klonopin) 0.5 mg TID GTB ; Start 07/07/16 at 13:00; Status UNV Docusate Sodium (Colace) 100 mg DAILY PO ; Start 07/07/16 at 12:00; Status UNV Fentanyl (Duragesic 50 Mcg/Hr Patch) 1 patch Q72H TRANSDERM ; Start 07/07/16 at 12:00; Status UNV Ferrous Sulfate (Feosol Liquid Cup) 330 mg BID GTB ; Start 07/07/16 at 12:00; Status UNV Insulin Glargine (Lantus) 10 unit QHS SC ; Start 07/07/16 at 21:00; Status UNV Lansoprazole (Prevacid) 30 mg DAILY GTB ; Start 07/08/16 at 09:00; Status UNV Levalbuterol (Xopenex Neb) 0.63 mg Q6H PRN NEB WHEEZING AND SOB; Start at 12:00; Status UNV Magnesium Hydroxide (Milk Of Mag) 30 ml DAILY PRN GTB CONSTIPATION; Start 07/07 at 12:00; Status UNV Metoclopramide HCl (Reglan) 10 mg Q6 PRN GTB NAUSEA AND/OR VOMITING; Start at 12:00; Status UNV Sodium Biphosphate/ Sodium Phosphate (Fleet Enema) 135 ml PRN PRN MS severe constipation; Start 07/07/16 at 12:00; Status UNV Quetiapine Fumarate (Seroquel) 12.5 mg DAILY GTB ; Start 07/07/16 at 12:00; Status UNV Valsartan (Diovan) 80 mg DAILY GTB ; Start 07/07/16 at 12:00; Status UNV Zinc Sulfate (Zinc Sulfate) 220 mg DAILY GTB ; Start 07/07/16 at 12:00; Status UNV Multivitamins (Thera-Plus) 5 ml DAILY GTB ; Start 07/07/16 at 12:00; Status UNV Insulin Aspart (Novolog Insulin Pen) NOVOLOG *MILD* ALGORI... Q4 SC ; Start at 13:00; Status UNV Miscellaneous Information (* Miscellaneous Pharmacy Order) HYPOGLYCEMIA PROTOCOL w... ONCE ONCE XX ; Start 07/07/16 at 12:30; Stop 07/07/16 at 12:31; Status UNV Miscellaneous Information (* Miscellaneous Pharmacy Order) Discontinue Glyburide , Glipizide,... ONCE ONCE XX ; Start 07/07/16 at 12:30; Stop 07/07/16 at 12:31 ; Status UNV Miscellaneous Information (* Miscellaneous Pharmacy Order) Discontinue all previ... ONCE ONCE XX ; Start 07/07/16 at 12:30; Stop 07/07/16 at 12:31; Status UNV STEVE JONES Jul 07, 2016 12:40
[2016-07-07] MEDS: ACETAMINOPHEN 325 MG TAB GTB PRN ×2 (12:59→19:44)
[2016-07-07 13:39] LABS: POTASSIUM 4.8 mmol/L (3.5-5.1)
[2016-07-07 13:41] LABS: CREATININE 0.83 mg/dl (0.44-1.00)
[2016-07-07 13:42] LABS: CALCIUM 9.5 mg/dl (8.4-10.2)
--- NOTE | 2016-07-07 16:38 | CONS ---
DATE OF ADMISSION: 07/06/2016 DATE OF CONSULTATION: 07/07/2016 TYPE FOR CONSULTATION: Infectious Disease consultation. REASON FOR CONSULTATION: Antibiotic management. HISTORY OF PRESENT ILLNESS: Monique Barrera is a 66-year-old female who was admitted with shortness of breath. Past problems include: 1. Hypertension. 2. Adult-onset diabetes mellitus. 3. Atrial fibrillation. 4. History of pulmonary embolus status post inferior vena cava filter. 5. Cardiomyopathy. 6. Right MCA stroke with hemorrhagic conversion. 7. Craniotomy, now with chronic left-sided deficits. 8. Chronic respiratory failure with a tracheostomy, and she is on ventilator, so she has ventilator -dependent respiratory failure. She came in to the emergency room from a group home facility w ith an apneic event. She turned blue. The patient is on numerous medications on admission. Her white count was 18.2, H and H of 8.1 and 2 7.2, platelet count 239,000. BUN and creatinine 43/0.93. PAST SURGICAL HISTORY: Status post knee replacement, status post back fusion, status post hysterect jammie, status post tracheostomy, status post G-tube placement. The patient is status post CVA with en cephalopathy. She has atherosclerotic cardiovascular disease. She has psychosis. 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 ALLERGIES: CODEINE. PHYSICAL EXAMINATION: GENERAL: The patient is a chronically ill-appearing female who is awake, but confused, in mild dist ress. VITAL SIGNS: Stable. She is afebrile. SKIN: Without generalized rash. She has some left foot gangrene. HEENT: Within normal limits. NECK: Supple. LYMPH NODES: None palpable. She has a tracheostomy in place. CHEST: Decreased breath sounds at the bases with occasional rhonchi. HEART: Tachycardic without murmur or gallop. ABDOMEN: Soft, nontender, without organosplenomegaly or masses. EXTREMITIES: Left foot gangrene with no other cyanosis, clubbing, or edema. RECTAL AND GENITAL: Deferred. NEUROLOGIC: The patient is nonverbal. She moves right upper and lower extremities but no movement on the left side. As noted, her white count was 18.2 on admission. Her chest x-ray showed mild failure. Her BUN and creatinine as noted were 27/0.83. Sputum cultures are pending. IMPRESSION AND PLAN: The patient was started initially on Levaquin. She received vancomycin and ce fepime in the emergency room. She was seen by Dr. Alex in pulmonary consultation. We are awaiting cultures. As noted, her white count was 18.2. Chest x-ray was clear. We would have thought she mi ght have aspirated. Wound Care has seen the patient. She is on Levaquin. Blood cultures are pendi ng. Urine cultures are pending. We will see what her current white count shows. I will dictate my findings to the hospitalists and to Dr. Alex. Dictated By: ANGEL HUANG MD, JD/DENNIS Conf#: [id number] DID#: [id number]
[2016-07-07] MEDS ORDERED: METOCLOPRAMIDE 10 MG TAB GTB PRN (17:00)
[2016-07-07] MEDS: INSULIN ASPART [NOVOLOG] 3 ML PEN SC SCH ×2 (17:00→20:42)
[2016-07-07] MEDS ORDERED: NA PHOSPHATE/BIPHOS 133 ML ENEMA PR PRN (17:00)
[2016-07-07] MEDS ORDERED: [UNRECOGNIZED DRUG - REMARK] XX SCH (17:00)
[2016-07-07] MEDS: clonAZEPAM 0.5 MG TAB GTB SCH ×2 (17:11→21:23)
[2016-07-07] MEDS: HYDROCODONE/APAP (5/325) TAB GTB PRN (17:11)
[2016-07-07] MEDS ORDERED: GLUCOSE GEL 15 GRAM TUBE PO PRN ×2 (17:30)
[2016-07-07] MEDS ORDERED: GLUCOSE GEL 15 GRAM TUBE BUCCAL PRN (17:30)
[2016-07-07] MEDS ORDERED: DEXTROSE 50% 50 ML SYRINGE IV PRN ×2 (17:30)
[2016-07-07] MEDS ORDERED: GLUCAGON 1 MG INJ IM PRN (17:30)
[2016-07-07] MEDS: APIXABAN 5 MG TABLET GTB SCH (20:40)
[2016-07-07] MEDS: CHLORHEXIDINE GLUCONATE 15 ML UD CUP MM SCH (20:40)
[2016-07-07] MEDS: FERROUS SULFATE 60 MG/ML 5ML CUP GTB SCH (20:40)
[2016-07-07] MEDS: INSULIN GLARGINE [LANtus] 3 ML PEN SC SCH (20:42)
[2016-07-08] VITALS (38 sets, daily range): BP systolic 97–149; BP diastolic 46–103; PULSE 88–115; RESP 14–41
[2016-07-08] MEDS: INSULIN ASPART [NOVOLOG] 3 ML PEN SC SCH ×6 (01:00→20:57)
[2016-07-08] MEDS: ACETAMINOPHEN 325 MG TAB GTB PRN ×2 (01:57→14:49)
[2016-07-08] MEDS: HYDROCODONE/APAP (5/325) TAB GTB PRN ×2 (03:02→16:15)
[2016-07-08 04:29] LABS: ADD SCAN DIFF NO
[2016-07-08 04:44] LABS: ABNORMAL IP MESSAGE 1; BASOPHILS % 0.2 % (0.0-2.0); EOSINOPHILS # 0.9 10^3/ul (0.0-0.5); EOSINOPHILS % 5.6 % (0.0-7.0); HEMATOCRIT 23.6 % (37.0-47.0); LYMPHOCYTES # 2.6 10^3/ul (0.8-2.9); LYMPHOCYTES % 17.1 % (15.0-51.0); MEAN CORPUSCULAR HEMOGLOBIN 28.8 pg (29.0-33.0); MEAN CORPUSCULAR HGB CONC 28.8 g/dl (32.0-37.0); MEAN PLATELET VOLUME 11.1 fl (7.4-10.4); MONOCYTE # 1.1 10^3/ul (0.3-0.9); MONOCYTES % 7.1 % (0.0-11.0); NEUTROPHIL # 10.6 10^3/ul (1.6-7.5); NEUTROPHILS % 69.4 % (39.0-77.0); NUCLEATED RED BLOOD CELLS% 0.1 /100WBC (0.0-0.0); PLATELET COUNT 561 10^3/UL (140-415); RED BLOOD COUNT 2.36 10^6/ul (4.20-5.40); RED CELL DISTRIBUTION WIDTH 17.4 % (11.5-14.5); WHITE BLOOD COUNT 15.3 10^3/ul (4.8-10.8)
[2016-07-08 04:49] LABS: HEMOGLOBIN 6.8 g/dl (12.0-16.0)
[2016-07-08 04:53] LABS: IRON 18 ug/dl (35-150)
[2016-07-08 05:02] LABS: TOTAL IRON BINDING CAPACITY 220 ug/dl (241-421)
[2016-07-08] MEDS ORDERED: INFLUENZA VIRUS VACCINE 0.5 ML (DISPENSING) IM* ONE (09:00)
[2016-07-08] MEDS: CHLORHEXIDINE GLUCONATE 15 ML UD CUP MM SCH ×2 (09:55→20:48)
[2016-07-08] MEDS: MULTIVITAMINS 5 ML CUP GTB SCH (09:55)
[2016-07-08] MEDS: VALSARTAN 80 MG TAB GTB SCH (09:56)
[2016-07-08] MEDS: FERROUS SULFATE 60 MG/ML 5ML CUP GTB SCH ×2 (09:56→20:48)
[2016-07-08] MEDS: QUETIAPINE 25 MG TAB GTB SCH (09:57)
[2016-07-08] MEDS: DOCUSATE SODIUM 100 MG CAP PO SCH (09:57)
[2016-07-08] MEDS: ASCORBIC ACID 500 MG TAB GTB SCH (09:57)
[2016-07-08] MEDS: LANSOPRAZOLE 30 MG CAP GTB SCH (09:57)
[2016-07-08] MEDS: ZINC SULFATE 220 MG CAP GTB SCH (09:57)
[2016-07-08] MEDS: clonAZEPAM 0.5 MG TAB GTB SCH ×3 (09:59→20:49)
--- NOTE | 2016-07-08 10:42 | CONS ---
Date/Time of Note Date/Time of Note DATE: 07/08/16 TIME: 10:39 Consult Date/Type/Reason Admit Date/Time Jul 06, 2016 at 22:42 Initial Consult Date 07/07/16 Type of Consultation: Pulmonary/critical care Subjective Patient is agitated at baseline Currently hemodynamically stable Minimal secretions Objective Vital Signs Date Time Temp Pulse Resp B/P Pulse Ox O2 Delivery O2 Flow Rate FiO2 07/08/16 09:00 105 27 134/55 96 Mechanical Ventilator 07/08/16 08:00 99.2 07/08/16 08:00 30 07/07/16 10:00 10.0 Intake and Output 07/07/16 07/07/16 07/08/16 15:00 23:00 07:00 Intake Total 420 ml 490 ml Output Total 310 ml 405 ml Balance 110 ml 85 ml Exam PHYSICAL EXAMINATION GENERAL: Elderly lady on mechanical ventilation appears comfortable at rest VITAL SIGNS: see below. HEENT: Pupils equal, round, and reactive to light. Tracheostomy site clean and intact. CARDIAC: S1, S2, 2 systolic ejection murmur CHEST: Diminished air entry bilaterally. ABDOMEN: Mildly distended. No bowel sounds. EXTREMITIES: No cyanosis, clubbing edema +2 NEUROLOGIC: Hemiplegia Results/Medications Result Diagram: 07/08/16 0330 07/07/16 1315 Results 24 hrs Laboratory Tests Test 07/07/16 13:15 07/07/16 13:37 07/07/16 16:56 07/07/16 20:33 Sodium Level 136 Potassium Level 4.8 Chloride Level 99 Carbon Dioxide Level 31 Anion Gap 11 Blood Urea Nitrogen 27 #H Creatinine 0.83 Glucose Level 103 Calcium Level 9.5 Bedside Glucose 107 126 167 Test 07/08/16 01:15 07/08/16 03:30 07/08/16 04:39 07/08/16 09:31 Bedside Glucose 129 179 207 White Blood Count 15.3 H Red Blood Count 2.36 L Hemoglobin 6.8 *L Hematocrit 23.6 L Mean Corpuscular Volume 100.0 Mean Corpuscular Hemoglobin 28.8 L Mean Corpuscular Hemoglobin Concent 28.8 L Red Cell Distribution Width 17.4 H Platelet Count 561 #H Mean Platelet Volume 11.1 H Neutrophils % 69.4 Lymphocytes % 17.1 Monocytes % 7.1 Eosinophils % 5.6 Basophils % 0.2 Nucleated Red Blood Cells % 0.1 H Neutrophils # 10.6 H Lymphocytes # 2.6 Monocytes # 1.1 H Eosinophils # 0.9 H Basophils # 0.0 Nucleated Red Blood Cells # 0.0 Hemoglobin A1c 6.4 H Iron Level 18 L Total Iron Binding Capacity 220 L Percent Iron Saturation 8 L Medications Current Medications Acetaminophen (Tylenol Tab) 650 mg Q6 PRN GTB PAIN Last administered on 01:57; Admin Dose 650 MG; Start 07/07/16 at 12:00 Apixaban (Eliquis) 5 mg BID GTB Last administered on 07/07/16 20:40; Admin Dose 5 MG; Start 07/07/16 at 21:00 Bisacodyl (Dulcolax Supp) 10 mg PRN [place] ; Start 07/07/16 at 12:00 Carvedilol (Coreg) 3.125 mg BID GTB Last administered on 07/08/16 09:57; Admin Dose 3.125 MG; Start 07/07/16 at 21:00 Chlorhexidine Gluconate (Peridex) 15 ml Q12 MM Last administered on 07/08/16 09:55; Admin Dose 15 ML; Start 07/07/16 at 21:00 Clonazepam (Klonopin) 0.5 mg TID GTB Last administered on 07/08/16 09:59; Admin Dose 0.5 MG; Start 07/07/16 at 13:00 Docusate Sodium (Colace) 100 mg DAILY PO Last administered on 07/08/16 09:57; Admin Dose 100 MG; Start 07/08/16 at 09:00 Fentanyl (Duragesic 50 Mcg/Hr Patch) 1 patch Q72H TRANSDERM ; Start 07/08/16 at 12:00 Ferrous Sulfate (Feosol Liquid Cup) 330 mg BID GTB Last administered on 09:56; Admin Dose 330 MG; Start 07/07/16 at 21:00 Insulin Glargine (Lantus) 10 unit QHS SC Last administered on 07/07/16 20:42; Admin Dose 10 UNIT; Start 07/07/16 at 21:00 Lansoprazole (Prevacid) 30 mg DAILY GTB Last administered on 07/08/16 09:57; Admin Dose 30 MG; Start 07/08/16 at 09:00 Levalbuterol (Xopenex Neb) 0.63 mg Q6H PRN NEB WHEEZING AND SOB; Start at 12:00 Magnesium Hydroxide (Milk Of Mag) 30 ml DAILY PRN GTB CONSTIPATION; Start 07/07 at 12:00 Metoclopramide HCl (Reglan) 10 mg Q6 PRN GTB NAUSEA AND/OR VOMITING; Start at 17:00 Sodium Biphosphate/ Sodium Phosphate (Fleet Enema) 135 ml PRN PRN [place] severe constipation; Start 07/07/16 at 17:00 Quetiapine Fumarate (Seroquel) 12.5 mg DAILY GTB Last administered on 09:57; Admin Dose 12.5 MG; Start 07/08/16 at 09:00 Valsartan (Diovan) 80 mg DAILY GTB Last administered on 07/08/16 09:56; Admin Dose 80 MG; Start 07/08/16 at 09:00 Zinc Sulfate (Zinc Sulfate) 220 mg DAILY GTB Last administered on 07/08/16 09: 57; Admin Dose 220 MG; Start 07/08/16 at 09:00 Multivitamins (Thera-Plus) 5 ml DAILY GTB Last administered on 07/08/16 09:55 ; Admin Dose 5 ML; Start 07/08/16 at 09:00 Insulin Aspart (Novolog Insulin Pen) NOVOLOG *MILD* ALGORI... Q4 SC Last administered on 07/08/16 09:54; Admin Dose 2 UNIT; Start 07/07/16 at 17:00 Ascorbic Acid (Vitamin C) 500 mg DAILY GTB Last administered on 07/08/16 09:57 ; Admin Dose 500 MG; Start 07/08/16 at 09:00 Miscellaneous Information 1 ea NOTE XX ; Start 07/07/16 at 17:30 Glucose (Glutose) 15 gm Q15M PRN PO DECREASED GLUCOSE; Start 07/07/16 at 17:30 Glucose (Glutose) 22.5 gm Q15M PRN PO DECREASED GLUCOSE; Start 07/07/16 at 17: 30 Dextrose (D50w Syringe) 25 ml Q15M PRN IV DECREASED GLUCOSE; Start 07/07/16 at 17:30 Dextrose (D50w Syringe) 50 ml Q15M PRN IV DECREASED GLUCOSE; Start 07/07/16 at 17:30 Glucagon (Glucagen) 1 mg Q15M PRN IM DECREASED GLUCOSE; Start 07/07/16 at 17:30 Glucose (Glutose) 15 gm Q15M PRN BUCCAL DECREASED GLUCOSE; Start 07/07/16 at 17 :30 Assessment/Plan Chief Complaint/Hosp Course Assessment 1. Vent dependent respiratory failure 2. History of CVA with hemiplegia 3. History of encephalopathy chronic secondary to above 4. Leukocytosis possible pneumonia healthcare associated 5. Anemia evidence of iron deficiency on iron panel 6. History of dysphagia with G-tube 7. History of atrial fibrillation Plan 1. Transfusion packed red blood cells 2. Consider GI evaluation 3. Continue mechanical ventilation 4. Antibiotics per infectious diseases adjusted for cultures 5. Continue tube feeding as tolerated 6. DVT and GI prophylaxis 7. Hold Eliquis is evidence of possible GI bleed. Disposition Stable for transfer to telemetry Consider addressing CODE STATUS is overall prognosis is poor Problems: JORDON MONSON MD, [facility] Jul 08, 2016 10:42
[2016-07-08] MEDS: APIXABAN 5 MG TABLET GTB SCH ×2 (10:49→20:49)
--- NOTE | 2016-07-08 13:00 | HP ---
DATE OF ADMISSION: 07/06/2016 LOCATION ICU PROGRESS NOTE: CHIEF COMPLAINT & HISTORY OF PRESENT ILLNESS: The patient is a 66-year-old unfortunate female with a history of hypertension, diabetes, atrial fibrillation , PE, status post IVC filter placement, cardiomyopathy, status post right MCA stroke with hemorrhagic conversion, status post craniotomy with chronic left- sided deficits, chronic respiratory failure, ventilator-dependent. The patient is also with left lower extremity ischemia. The patient was recuperating at a senior living facility. The patient had an apneic episode and reportedly the patient turned blue and was in severe respiratory distress. The patient was brought to the emergency room. In the emergency room the patient underwent a chest x-ray which revealed a tracheostomy tube of midline, cardiomegaly and atherosclerotic calcifications of thoracic aorta, mild pulmonary vascular congestion and patchy airspace disease. There is no pleural effusion or pneumothorax. The patient was also noted to have a low hemoglobin, which was 8.1 on admission, and dropped to 6.8 today. The patient also had leukocytosis, with white blood cells elevated to 18,200. Urinalysis was indicative of a urinary tract infection. A 12-lead EKG reveals sinus tachycardia with a rate of 126 on admission, with no ST or T-wave changes suggestive of GA. The patient was diagnosed with sepsis and hypercapneic respiratory failure and was started on broad spectrum antibiotics and admitted for further evaluation and management to the intensive care unit. PAST SURGICAL HISTORY: Status post gastric stapling, status post carpal tunnel syndrome surgery, status post back surgery with chronic low back pain, status post bilateral total knee replacements, status post tracheostomy and G-tube placement, status post attempt for left iliac artery stent placement; however, was impossible due to chronic occlusion, per evaluation by Dr. Olmedo. SOCIAL HISTORY: The patient currently is a resident of a senior living facility. The patient is an ex-smoker, currently does not smoke, abuse drugs or use alcohol. FAMILY HISTORY: Patient's sister from a CVA. ALLERGIES: THE PATIENT IS ALLERGIC TO CODEINE. MEDICATIONS ON ADMISSION: Include: 1. Levalbuterol. 2. Cranberry extract. 3. Zinc sulfate. 4. Vitamin C. 5. Diovan. 6. liquid. 7. Acetaminophen. 8. NPH. 9. [place]. 10. Multivitamins. 11. Milk of Magnesium p.r.n. 12. Lantus 10 units subcutaneous at bedtime. 13. Dulcolax. 14. Eliquis. 15. Seroquel. 16. Colace. 17. Coreg. 18. Peridex. 19. Reglan. 20. Lansoprazole. 21. Ferrous sulfate. 22. Duragesic patch. 23. Clonazepam. REVIEW OF SYSTEMS: A 12-point review of systems is negative unless mentioned in the HPI. In addition, the patient was noted to have a fever of 101.2 on admission. PHYSICAL ASSESSMENT: GENERAL: Well-developed, obese female, currently is awake, alert, on ventilator support via tracheostomy. VITAL SIGNS: Temperature is 99.2, pulse is 104, blood pressure 127/57, respiratory rate 19, oxygen saturation 97% on 30% FIO2. HEENT: Head is atraumatic, normocephalic. Pupils are equal and reactive to light and accommodation. Oral mucosa is pink and moist. NECK: Supple. There is a tracheostomy at the base of the neck, with no bleeding. CHEST: Slightly diminished at the bases bilaterally. No wheezing, rhonchi or rales noted. CARDIOVASCULAR: The patient is slightly tachycardic. Normal S1, S2. No murmurs, gallops, clicks or rubs noted. ABDOMEN: Protuberant, soft, nondistended, nontender. Bowel sounds present. There is no guarding, no rebound tenderness. G-tube with an intact stoma. GENITOURINARY: The patient has a Rivera catheter with yellow urine. EXTREMITIES: Patient has multiple necrotic wounds of the left lower extremity, including heel and toes. Also including the left calf, with diminished pulse. The patient has multiple sores, including the buttocks. NEUROLOGIC: Patient is awake, alert, moving right upper and lower extremities. Left-sided hemiplegia. LABORATORY DATA ON ADMISSION: CBC, white blood cells 18.2, hemoglobin 8.1, hematocrit 27.2, platelets 293. Chemistry: Sodium is 132, potassium 5.0, chloride 90, carbon dioxide 34, anion gap 15, BUN is 43, creatinine 0.983, glucose 123, lactic acid is 3.5. Troponin 0.012. PT is 18.6, INR is 1.54, PTT is 28.7. Urinalysis was positive for leukocyte esterase. ASSESSMENT AND PLAN: 1. Acute on chronic respiratory failure secondary to pneumonia. Dr. Mcbride is following in pulmonology consultation. Continue ventilator support and bronchodilators. 2. Sepsis secondary to pneumonia and possible urinary tract infection. Will continue to follow up on cultures. Continue broad-spectrum antibiotics. Dr. Hernadez is following in infectious disease consultation. 3. Acute anemia, with a drop in hemoglobin to 6.9. Patient is currently undergoing a blood transfusion. Will obtain stool for OB and anemia panel. 4. Left lower extremity ischemia with left fourth toe gangrene, due to PVD . S/ p recent evaluation by Dr. Watson from [facility]. 5. History of CVA. 6. Cardiomyopathy, with an ejection fraction of 45%. 7. Diastolic dysfunction congestive heart failure. 8. Chronic pain syndrome. 9. Ventilator-dependent respiratory failure with tracheostomy. 10. Dysphagia with G-tube placement. 11. Multiple wounds present on admission. Irecently had meeting with patient' s & daughter . They requested DNR & no heroic measures.They would like to keep her as comfortable as possible. We are going to ask Dr. Dowd to see the patient in gastroenterology consultation. Resume the patient's G-tube feeding and home medications. Continue Prevacid for deep venous thrombosis prophylaxis. Further recommendations based on clinical course. Plan of care discussed with Dr. Lorenzo. Total critical care time spent 35 minutes. Dictated By: DELIO GUILLERMO [employer] CHIEF ENGINEER for JOSR LORENZO MD SR/NTS Conf#: [id number] DID#: [id number] JENNIFER
[2016-07-08] MEDS: FENTAnyl PATCH 50 MCG/HR TRANSDERM SCH (14:12)
--- NOTE | 2016-07-08 14:58 | PN ---
DATE: 07/08/2016 SUBJECTIVE: No acute events. The patient is status post fever last night. She is lying in bed, sl ightly restless, no fevers. VITAL SIGNS: Temperature 99.2, pulse 105, respirations 27, blood pressure 134/55, saturation 97% on 30 FIO2. WBC 15.3, H and H 6.8 and 23.6, platelets 561, no shift, no bands. BUN 27, creatinine 0. 83, lactic acid on admission was 3.5, yesterday 1.4. ANTIMICROBIALS: The patient is off antibiotics. MICROBIOLOGY: Blood cultures remain negative. Urine culture negative. Sputum culture growing gram -negative rods. INDWELLINGS: Trach, PEG, Rivera catheter. PHYSICAL EXAMINATION: GENERAL: Chronically ill-appearing, elderly woman who is in no distress. HEENT: Head atraumatic, normocephalic. Sclerae anicteric. Buccal mucosa dry. NECK: Supple. Tracheostomy present. CHEST: Rise symmetrical. Breath sounds diminished. HEART: S1, S2. ABDOMEN: Soft, bowel tones present. EXTREMITIES: Left lower extremity dressing intact. ASSESSMENT: 1. Sepsis with fevers and leukocytosis, etiologies multiple. 2. Probable healthcare-associated pneumonia with chronic respiratory failure. 3. Left lower extremity cellulitis, chronic wounds with left foot gangrene. 4. Peripheral vascular disease. 5. Dysphagia, status post percutaneous endoscopic gastrostomy. 6. Encephalopathy. PLAN: We are going to start patient on vancomycin and meropenem. Continue present care. Follow fi nal cultures, await for podiatry evaluation. Continue vent management as per pulmonary. Dictated By: JEFF SERNA DIRECTOR OF RETAIL OPERATIONS for ANGEL REAL/NTS Conf#: [id number] DID#: [id number]
[2016-07-08] MEDS: MEROPENEM 500 MG/100 ML (PMX) 100 ML IVPB SCH (16:29)
[2016-07-08] MEDS ORDERED: VANCOMYCIN IV PER PHARMACY XX SCH (17:00)
[2016-07-08] MEDS ORDERED: VANCOMYCIN 2 GM in SOD CHLORIDE 0.9% 500 ML IVPB ONE (17:00)
[2016-07-08] MEDS: INSULIN GLARGINE [LANtus] 3 ML PEN SC SCH (20:56)
[2016-07-09] VITALS (28 sets, daily range): BP systolic 114–145; BP diastolic 49–80; PULSE 83–112; RESP 14–39
[2016-07-09] MEDS: MEROPENEM 500 MG/100 ML (PMX) 100 ML IVPB SCH ×3 (00:27→15:54)
[2016-07-09] MEDS: INSULIN ASPART [NOVOLOG] 3 ML PEN SC SCH ×6 (01:11→22:07)
[2016-07-09 05:29] LABS: ADD SCAN DIFF NO
[2016-07-09 06:03] LABS: ABNORMAL IP MESSAGE 1; BASOPHILS % 0.2 % (0.0-2.0); EOSINOPHILS # 0.4 10^3/ul (0.0-0.5); EOSINOPHILS % 2.4 % (0.0-7.0); HEMATOCRIT 30.8 % (37.0-47.0); HEMOGLOBIN 9.1 g/dl (12.0-16.0); LYMPHOCYTES % 18.8 % (15.0-51.0); MEAN CORPUSCULAR HEMOGLOBIN 27.2 pg (29.0-33.0); MEAN CORPUSCULAR HGB CONC 29.5 g/dl (32.0-37.0); MEAN CORPUSCULAR VOLUME 91.9 fl (82.0-101.0); MEAN PLATELET VOLUME 10.8 fl (7.4-10.4); MONOCYTE # 1.6 10^3/ul (0.3-0.9); MONOCYTES % 9.6 % (0.0-11.0); NEUTROPHIL # 10.9 10^3/ul (1.6-7.5); NEUTROPHILS % 68.1 % (39.0-77.0); NUCLEATED RED BLOOD CELLS% 0.1 /100WBC (0.0-0.0); PLATELET COUNT 560 10^3/UL (140-415); RED BLOOD COUNT 3.35 10^6/ul (4.20-5.40); RED CELL DISTRIBUTION WIDTH 23.5 % (11.5-14.5); WHITE BLOOD COUNT 16.1 10^3/ul (4.8-10.8)
[2016-07-09 06:24] LABS: POTASSIUM 4.3 mmol/L (3.5-5.1)
[2016-07-09 06:26] LABS: CREATININE 0.75 mg/dl (0.44-1.00)
[2016-07-09 06:27] LABS: CALCIUM 9.8 mg/dl (8.4-10.2); PHOSPHORUS 3.1 mg/dl (2.5-4.9)
[2016-07-09 06:28] LABS: MAGNESIUM 2.1 mg/dl (1.7-2.5)
--- NOTE | 2016-07-09 07:01 | RADRPT ---
PROCEDURE: XR Chest. CLINICAL INDICATION: Shortness of breath. TECHNIQUE: Single frontal view. COMPARISON: 07/06/2016. FINDINGS: The tracheostomy tube remains in satisfactory position. Mild pulmonary edema is improved. The lung s are otherwise clear. The heart size is normal. There is no pleural effusion. There is no pneumothorax. IMPRESSION: 1. Tracheostomy tube in satisfactory position. 2. Mild pulmonary edema, improved. RPTAT: QQ .Pete Cruz MD, MD Date Time Electronically viewed and signed by .Pete Cruz MD, MD on 07/09/2016 07:00 .R/
--- NOTE | 2016-07-09 07:01 | CONS ---
DATE OF ADMISSION: 07/06/2016 DATE OF CONSULTATION: GASTROINTESTINAL CONSULTATION HISTORY OF PRESENT ILLNESS: The patient is a 66-year-old female with a history of hypertension, ost eoarthritis, status post trach and PEG, CVA, cardiomyopathy, IVC filter, atrial fibrillation, diabet es mellitus and left-sided CVA ____ long-term was found to have bluish discoloration and was in r espiratory distress. Patient was sent to the emergency room. In the ER, she was evaluated, had a W BC of 18,000 so with the diagnosis of sepsis, possibly pneumonia and UTI, the patient was admitted f or further management. GI consult was called in because the hemoglobin was low at 6.8 and it droppe d significantly, probably partly due to dehydration. When she came in, she was dehydrated. I discu ssed the case with the staff. There was no evidence of GI bleeding, has not had a bowel movement an d G-tube aspirate was negative for any kind of blood. PAST SURGICAL HISTORY: Carpal tunnel syndrome, gastric stapling, back surgery, knee surgery, knee r eplacement, status post attempt for left iliac artery stent placement. SOCIAL HISTORY: Resident of long-term. No alcohol, no IV drug abuse, no smoking. FAMILY HISTORY: Sister from CVA. ALLERGIES: TO CODEINE. MEDICATIONS: All reviewed. She is on Eliquis. REVIEW OF SYSTEMS: Unable to do it. PHYSICAL EXAMINATION: GENERAL: The patient is comfortable, not in distress. VITAL SIGNS: Stable, on vent. ABDOMEN: Benign. He has got a G-tube. LUNGS: Clear. EXTREMITIES: No edema. CENTRAL NERVOUS SYSTEM: The patient at present is sleepy. LABORATORY DATA: The hemoglobin dropped to 6.8. INR is 1.5. ____ dropped from 27.2. to 23.6. BU N which was 43, now is 27. IMPRESSION: 1. Sepsis, most probably from pneumonia and urinary tract infection. 2. Severe anemia. No evidence of acute gastrointestinal bleeding. 3. Left lower extremity cellulitis, chronic wound with left foot gangrene. 4. Peripheral vascular disease. 5. Dysphagia, status post percutaneous endoscopic gastrostomy. 6. Cerebrovascular accident. 7. Encephalopathy. 8. Osteoarthritis. 9. Vent dependent respiratory failure. 10. Cardiomyopathy with ejection fraction of 45%. PLAN: Continue present care including Eliquis since there is no evidence of active GI bleeding. If the patient has melena or bright red blood per rectum we will stop Eliquis. The patient had endosc opy done, both EGD and colonoscopy 2 to 3 months ago and it showed ulcer, both in the cecum and hepa tic flexure, probably ischemic in nature and the polyp was removed. Stomach, she had diffuse gastritis. So we will continue PPI for that. Will send stool for occult b lood and also anemia workup. If there is no GI bleeding and hematocrit keeps dropping, then we may have to do a CAT scan to make sure there is no ____ retroperitoneal bleed. Dictated By: INES PEÑA/NTS Conf#: [id number] DID#: [id number] CC: JOSR LORENZO MD;*EndCC*
[2016-07-09] MEDS: CHLORHEXIDINE GLUCONATE 15 ML UD CUP MM SCH ×2 (08:36→21:58)
[2016-07-09] MEDS: MULTIVITAMINS 5 ML CUP GTB SCH (08:36)
[2016-07-09] MEDS: LANSOPRAZOLE 30 MG CAP GTB SCH (08:36)
[2016-07-09] MEDS: FERROUS SULFATE 60 MG/ML 5ML CUP GTB SCH ×2 (08:36→21:58)
[2016-07-09] MEDS: APIXABAN 5 MG TABLET GTB SCH ×2 (08:37→21:58)
[2016-07-09] MEDS: QUETIAPINE 25 MG TAB GTB SCH (08:37)
[2016-07-09] MEDS: ASCORBIC ACID 500 MG TAB GTB SCH (08:37)
[2016-07-09] MEDS: VALSARTAN 80 MG TAB GTB SCH (08:37)
[2016-07-09] MEDS: DOCUSATE SODIUM 100 MG CAP PO SCH (08:38)
[2016-07-09] MEDS: ZINC SULFATE 220 MG CAP GTB SCH (08:55)
[2016-07-09] MEDS: clonAZEPAM 0.5 MG TAB GTB SCH ×3 (08:55→21:58)
--- NOTE | 2016-07-09 11:50 | PN ---
Date/Time of Note Date/Time of Note DATE: 07/09/16 TIME: 11:50 Assessment/Plan VTE Prophylaxis VTE Prophylaxis Intervention: other Lines/Catheters IV Catheter Type (from [facility]): Saline Lock Urinary Cath still in place: Yes Reason Cath still needed: skin wounds contaminated by urine Assessment/Plan Chief Complaint/Hosp Course 1. Acute on chronic respiratory failure secondary to pneumonia. Dr. Mcbride is following in pulmonology consultation. Continue ventilator support and bronchodilators. 2. Sepsis secondary to pneumonia and possible urinary tract infection. Will continue to follow up on cultures. Continue broad-spectrum antibiotics. Dr. Hernadez is following in infectious disease consultation. 3. Acute anemia, with a drop in hemoglobin to 6.9. Patient is currently undergoing a blood transfusion. Will obtain stool for OB and anemia panel. 4. 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 5. History of CVA. 6. Cardiomyopathy, with an ejection fraction of 45%. 7. Diastolic dysfunction congestive heart failure. 8. Chronic pain syndrome. 9. Ventilator-dependent respiratory failure with tracheostomy. 10. Dysphagia with G-tube placement. 11. Multiple wounds present on admission. Problems: Subjective 24 Hr Interval Summary Free Text/Dictation Patient is asleep, on ventilator via trach Exam/Review of Systems Vital Signs Vitals Vital Signs Date Time Temp Pulse Resp B/P Pulse Ox O2 Delivery O2 Flow Rate FiO2 07/09/16 11:20 87 14 96 30 07/09/16 10:00 134/60 Mechanical Ventilator 07/09/16 07:00 100.0 07/07/16 10:00 10.0 Intake and Output 07/08/16 07/08/16 07/09/16 14:59 22:59 06:59 Intake Total 490 ml 1010 ml Output Total 280 ml 440 ml Balance 210 ml 570 ml Exam Constitutional: obese, well developed Head: atraumatic, normocephalic Neck: supple Respiratory: diminished breath sounds Cardiovascular: regular rate and rhythm Gastrointestinal: non-tender, soft Extremities: normal pulses Results Result Diagram: 07/09/16 0505 07/09/16 0505 Results 24 hrs Laboratory Tests Test 07/08/16 12:00 07/08/16 17:45 07/08/16 20:55 07/09/16 01:07 Bedside Glucose 216 142 164 176 Test 07/09/16 05:05 07/09/16 05:06 07/09/16 08:42 White Blood Count 16.1 H Red Blood Count 3.35 #L Hemoglobin 9.1 #L Hematocrit 30.8 #L Mean Corpuscular Volume 91.9 Mean Corpuscular Hemoglobin 27.2 L Mean Corpuscular Hemoglobin Concent 29.5 L Red Cell Distribution Width 23.5 #H Platelet Count 560 H Mean Platelet Volume 10.8 H Neutrophils % 68.1 Lymphocytes % 18.8 Monocytes % 9.6 Eosinophils % 2.4 Basophils % 0.2 Nucleated Red Blood Cells % 0.1 H Neutrophils # 10.9 H Lymphocytes # 3.0 H Monocytes # 1.6 H Eosinophils # 0.4 Basophils # 0.0 Nucleated Red Blood Cells # 0.0 Sodium Level 139 Potassium Level 4.3 Chloride Level 98 Carbon Dioxide Level 33 H Anion Gap 12 Blood Urea Nitrogen 24 H Creatinine 0.75 Glucose Level 174 Calcium Level 9.8 Phosphorus Level 3.1 Magnesium Level 2.1 Bedside Glucose 168 194 Medications Medications Current Medications Acetaminophen (Tylenol Tab) 650 mg Q6 PRN GTB PAIN Last administered on 14:49; Admin Dose 650 MG; Start 07/07/16 at 12:00 Apixaban (Eliquis) 5 mg BID GTB Last administered on 07/09/16 08:37; Admin Dose 5 MG; Start 07/07/16 at 21:00 Bisacodyl (Dulcolax Supp) 10 mg PRN [place] ; Start 07/07/16 at 12:00 Carvedilol (Coreg) 3.125 mg BID GTB Last administered on 07/09/16 08:37; Admin Dose 3.125 MG; Start 07/07/16 at 21:00 Chlorhexidine Gluconate (Peridex) 15 ml Q12 MM Last administered on 07/09/16 08 :36; Admin Dose 15 ML; Start 07/07/16 at 21:00 Clonazepam (Klonopin) 0.5 mg TID GTB Last administered on 07/09/16 08:55; Admin Dose 0.5 MG; Start 07/07/16 at 13:00 Docusate Sodium (Colace) 100 mg DAILY PO Last administered on 07/08/16 09:57; Admin Dose 100 MG; Start 07/08/16 at 09:00 Fentanyl (Duragesic 50 Mcg/Hr Patch) 1 patch Q72H TRANSDERM Last administered on 07/08/16 14:12; Admin Dose 1 PATCH; Start 07/08/16 at 12:00 Ferrous Sulfate (Feosol Liquid Cup) 330 mg BID GTB Last administered on 08:36; Admin Dose 330 MG; Start 07/07/16 at 21:00 Insulin Glargine (Lantus) 10 unit QHS SC Last administered on 07/08/16 20:56; Admin Dose 10 UNIT; Start 07/07/16 at 21:00 Lansoprazole (Prevacid) 30 mg DAILY GTB Last administered on 07/09/16 08:36; Admin Dose 30 MG; Start 07/08/16 at 09:00 Levalbuterol (Xopenex Neb) 0.63 mg Q6H PRN NEB WHEEZING AND SOB; Start at 12:00 Magnesium Hydroxide (Milk Of Mag) 30 ml DAILY PRN GTB CONSTIPATION; Start 07/07 at 12:00 Metoclopramide HCl (Reglan) 10 mg Q6 PRN GTB NAUSEA AND/OR VOMITING; Start at 17:00 Sodium Biphosphate/ Sodium Phosphate (Fleet Enema) 135 ml PRN PRN [place] severe constipation; Start 07/07/16 at 17:00 Quetiapine Fumarate (Seroquel) 12.5 mg DAILY GTB Last administered on 07/09/16 08:37; Admin Dose 12.5 MG; Start 07/08/16 at 09:00 Valsartan (Diovan) 80 mg DAILY GTB Last administered on 07/09/16 08:37; Admin Dose 80 MG; Start 07/08/16 at 09:00 Zinc Sulfate (Zinc Sulfate) 220 mg DAILY GTB Last administered on 07/09/16 08: 55; Admin Dose 220 MG; Start 07/08/16 at 09:00 Multivitamins (Thera-Plus) 5 ml DAILY GTB Last administered on 07/09/16 08:36; Admin Dose 5 ML; Start 07/08/16 at 09:00 Insulin Aspart (Novolog Insulin Pen) NOVOLOG *MILD* ALGORI... Q4 SC Last administered on 07/09/16 08:43; Admin Dose 2 UNIT; Start 07/07/16 at 17:00 Ascorbic Acid (Vitamin C) 500 mg DAILY GTB Last administered on 07/09/16 08:37 ; Admin Dose 500 MG; Start 07/08/16 at 09:00 Miscellaneous Information 1 ea NOTE XX ; Start 07/07/16 at 17:30 Glucose (Glutose) 15 gm Q15M PRN PO DECREASED GLUCOSE; Start 07/07/16 at 17:30 Glucose (Glutose) 22.5 gm Q15M PRN PO DECREASED GLUCOSE; Start 07/07/16 at 17: 30 Dextrose (D50w Syringe) 25 ml Q15M PRN IV DECREASED GLUCOSE; Start 07/07/16 at 17:30 Dextrose (D50w Syringe) 50 ml Q15M PRN IV DECREASED GLUCOSE; Start 07/07/16 at 17:30 Glucagon (Glucagen) 1 mg Q15M PRN IM DECREASED GLUCOSE; Start 07/07/16 at 17:30 Glucose 15 gm 15 gm Q15M PRN BUCCAL DECREASED GLUCOSE; Start 07/07/16 at 17:30 Meropenem 100 ml @ 200 mls/hr Q8H IVPB Last administered on 07/09/16 08:00; Admin Dose 200 MLS/HR; Start 07/08/16 at 16:00 Vancomycin HCl/ Sodium Chloride (Vancocin/NS) 250 ml @ 83.333 mls/ hr Q24H IVPB ; Start 07/09/16 at 17:00 Sodium Hypochlorite (Dakin'S (1/4 Strength)) 1 applic BID IRR ; Start 07/09/16 at 21:00 MICHOACANO HOBBS Jul 09, 2016 11:50
--- NOTE | 2016-07-09 12:03 | CONS ---
DATE OF ADMISSION: 07/06/2016 DATE OF CONSULTATION: 07/09/2016 REFERRING PHYSICIAN: Dr. Suarez REASON FOR CONSULTATION: Left foot ulceration, gangrene, malodorous wounds. HISTORY OF PRESENT ILLNESS: The patient currently in ICU, has been at a subacute chronically, has chronic respiratory failure with a tracheostomy, currently on a ventilator. Was admitted due to concern for ventilator- dependent respiratory failure. The patient with multiple comorbidities including CVA with hemiplegia, history of encephalopathy, patient with anemia and recommended transfusion. The patient with a DO NOT RESUSCITATE status. The patient was seen by infectious disease and is currently on vancomycin and meropenem for treatment of sepsis and fevers, leukocytosis, healthcare- associated pneumonia. PAST MEDICAL HISTORY: 1. Hypertension. 2. Diabetes type 2. 3. Atrial fibrillation. 4. PE status post IVC filter placement. 5. Cardiomyopathy. 6. Status post right MCA stroke with hemorrhagic conversion. 7. Status post craniotomy with chronic left-sided defects. 8. Chronic respiratory failure, ventilator dependent. 9. Gangrene, left foot. 10. Anemia, iron deficiency. 11. Leukocytosis. 12. Urinary tract infection. PAST SURGICAL HISTORY: 1. Gastric stapling. 2. Status post carpal tunnel syndrome. 3. Status post back surgery with chronic low back pain. 4. Status post bilateral knee replacement. 5. Status post tracheostomy and G-tube placement. 6. Status post attempt for a left iliac artery stent placement. SOCIAL HISTORY: The patient resides at the [facility] nursing [facility]. The patient is a former smoker. FAMILY HISTORY: Sister from CVA. ALLERGIES: CODEINE. MEDICATIONS: Include vancomycin, meropenem, Eliquis. REVIEW OF SYSTEMS: Per chart record, the patient with ulcerations to the left posterior calf, left heel, gangrene to the great toe, second toe and unstageable wounds to the anterior medial ankle. PHYSICAL EXAMINATION: GENERAL: The patient awake, appears agitated. VITAL SIGNS: Temperature 100, pulse is 103, respiratory rate 28, blood pressure is 134/60, pulse ox of 98 on mechanical ventilator. Patient with G-tube. EXTREMITIES: The patient has healed anterior midline knee incisions. Has a 2+ popliteal pulse on the left. The patient has clean dressings to the left lower extremity. There is fecal malodor. The patient with ulceration to the left posterior calf with exposed subcutaneous tissue and ligament. Ulceration measures 10 x 5 cm. No tunneling, undermining or abscess noted. The patient has a left posterior heel unstageable wound measuring 4 x 4 cm and gangrene involving the left hallux, second toe and unstageable eschars on the medial aspect of the left ankle measuring approximately 6 x 3 cm. The patient's extremities are warm. No visible signs of cellulitis, lymphangitis on the left foot. Right foot: There is no evidence of infection or decubitus ulceration. Unable to perform a neuromotor examination. LABORATORIES: WBC 16.1, hemoglobin 9.1, hematocrit 30.8, platelets of 560. Sodium 139, potassium 4.3, chloride 98, CO2 of 33, BUN 24, creatinine 0.75, glucose of 174. PT 18.6, INR 1.54, PTT 28.7. Chest x-ray: Tracheostomy, mild pulmonary edema, improved status. Extremity arterial study on 05/15/2016: Left lower extremity not performed due to patient combative and uncooperative. On 06/03/2016, the patient had angiography which revealed aorta with calcified lesions, about 30% on the left side. Left common iliac artery, internal iliac artery occluded. External iliac artery occluded. Femoral artery occluded. Profunda was faint. Superficial femoral artery had minimal disease about 30% down to popliteal disease at 30%. Labs: MRSA of nares is negative. Urine culture, no growth. Sputum positive for gram-negative rods. Blood cultures, no growth. ASSESSMENT: 1. Sepsis. 2. Probable pneumonia, urinary tract infection. 3. Severe anemia. 4. Left foot diabetic foot ulceration. 5. Left foot gangrene. 6. Peripheral arterial disease. 7. Dysphagia. 8. Encephalopathy. 9. Ventilator-dependent respiratory failure. PLAN: The patient seen and evaluated. Per chart records, the patient is a DNR and no aggressive treatment measures by family decision. I attempted to discuss with next of kin and unable to do so. Nursing recommendations given for antiseptic precautions, obtain wound cultures. The patient has poor prognosis for healing, had been recommended a fem-fem or axillofemoral bypass in the past and if not a candidate given due to comorbidities and poor prognosis for ambulation, would recommend initiating palliative measures. We will continue to follow in-house. Dictated By: NUBIA RODRIGUEZ DPM RB/DENNIS Conf#: [id number] DID#: [id number] MTDD
[2016-07-09] MEDS: ACETAMINOPHEN 325 MG TAB GTB PRN (12:16)
--- NOTE | 2016-07-09 13:59 | PN ---
DATE: 07/09/2016 SUBJECTIVE: No acute changes. The patient is lying comfortably in bed with a spiking low-grade fev ers. PHYSICAL EXAMINATION VITAL SIGNS: T-max 100.1, pulse 100, respirations 24, blood pressure 145/67, saturation 97% on vent . LABORATORY DATA: WBC 16.1, H and H 9.1 and 30.8, platelets 560. No shift. BUN 24, creatinine 0.75 . MICROBIOLOGY: Sputum culture growing Serratia, Proteus mirabilis and Pseudomonas aeruginosa, multid rug resistant. DIAGNOSTICS: Chest x-ray this morning revealed mild pulmonary edema. INDWELLINGS: Trach, PEG, Rivera. ANTIMICROBIALS: Patient is on: 1. IV vancomycin. 2. Merrem. PHYSICAL EXAMINATION: GENERAL: This is a chronically ill appearing, elderly woman who is in no distress. HEENT: Atraumatic, normocephalic. Sclerae anicteric. Buccal mucosa dry. NECK: Supple. CHEST: Rise symmetrical. Breath sounds diminished. HEART: S1, S2. ABDOMEN: Soft, bowel sounds present. EXTREMITIES: With left lower extremity dressing intact. ASSESSMENT: 1. Systemic inflammatory response syndrome with low grade fevers and leukocytosis which is chronic. 2. Left lower extremity gangrene. 3. Chronic leukocytosis, rule out malignancy versus myelodysplastic syndrome. 4. Chronic respiratory failure. 5. Chronic encephalopathy. 6. Peripheral vascular disease. PLAN: The patient remains stable. We will keep her on current antimicrobials, a Colistin inhalatio n. Follow up dietary recommendations. Prognosis poor. Patient is DNR status. Dictated By: JEFF SERNA PREPARATION SUPER[employer]OR [employer] for [employer] REAL/DENNIS Conf#: [id number] DID#: [id number]
--- NOTE | 2016-07-09 14:10 | CONS ---
Date/Time of Note Date/Time of Note DATE: 07/09/16 TIME: 14:07 Consult Date/Type/Reason Admit Date/Time Jul 06, 2016 at 22:42 Initial Consult Date 07/07/16 Type of Consultation: Pulmonary/critical care Subjective No events. On [facility] vent. Objective Vital Signs Date Time Temp Pulse Resp B/P Pulse Ox O2 Delivery O2 Flow Rate FiO2 07/09/16 13:40 94 22 99 30 07/09/16 12:00 100.1 145/67 Mechanical Ventilator 07/07/16 10:00 10.0 Intake and Output 07/08/16 07/08/16 07/09/16 15:00 23:00 07:00 Intake Total 560 ml 1010 ml Output Total 310 ml 480 ml Balance 250 ml 530 ml Exam HEENT: Neck supple; no JVD; no LAD, trach site CVS: RRR, S1 and S2 CHEST: Clear ABD: Soft, NT, + BS EXT: No c/c; + edema Results/Medications Result Diagram: 07/09/16 0505 07/09/16 0505 Results 24 hrs Laboratory Tests Test 07/08/16 17:45 07/08/16 20:55 07/09/16 01:07 07/09/16 03:15 Bedside Glucose 142 164 176 Stool Occult Blood NEGATIVE Test 07/09/16 05:05 07/09/16 05:06 07/09/16 08:42 07/09/16 12:13 White Blood Count 16.1 H Red Blood Count 3.35 #L Hemoglobin 9.1 #L Hematocrit 30.8 #L Mean Corpuscular Volume 91.9 Mean Corpuscular Hemoglobin 27.2 L Mean Corpuscular Hemoglobin Concent 29.5 L Red Cell Distribution Width 23.5 #H Platelet Count 560 H Mean Platelet Volume 10.8 H Neutrophils % 68.1 Lymphocytes % 18.8 Monocytes % 9.6 Eosinophils % 2.4 Basophils % 0.2 Nucleated Red Blood Cells % 0.1 H Neutrophils # 10.9 H Lymphocytes # 3.0 H Monocytes # 1.6 H Eosinophils # 0.4 Basophils # 0.0 Nucleated Red Blood Cells # 0.0 Sodium Level 139 Potassium Level 4.3 Chloride Level 98 Carbon Dioxide Level 33 H Anion Gap 12 Blood Urea Nitrogen 24 H Creatinine 0.75 Glucose Level 174 Calcium Level 9.8 Phosphorus Level 3.1 Magnesium Level 2.1 Bedside Glucose 168 194 208 Medications Current Medications Acetaminophen (Tylenol Tab) 650 mg Q6 PRN GTB PAIN Last administered on 12:16; Admin Dose 650 MG; Start 07/07/16 at 12:00 Apixaban (Eliquis) 5 mg BID GTB Last administered on 07/09/16 08:37; Admin Dose 5 MG; Start 07/07/16 at 21:00 Bisacodyl (Dulcolax Supp) 10 mg PRN [place] ; Start 07/07/16 at 12:00 Carvedilol (Coreg) 3.125 mg BID GTB Last administered on 07/09/16 08:37; Admin Dose 3.125 MG; Start 07/07/16 at 21:00 Chlorhexidine Gluconate (Peridex) 15 ml Q12 MM Last administered on 07/09/16 08 :36; Admin Dose 15 ML; Start 07/07/16 at 21:00 Clonazepam (Klonopin) 0.5 mg TID GTB Last administered on 07/09/16 12:16; Admin Dose 0.5 MG; Start 07/07/16 at 13:00 Docusate Sodium (Colace) 100 mg DAILY PO Last administered on 07/08/16 09:57; Admin Dose 100 MG; Start 07/08/16 at 09:00 Fentanyl (Duragesic 50 Mcg/Hr Patch) 1 patch Q72H TRANSDERM Last administered on 07/08/16 14:12; Admin Dose 1 PATCH; Start 07/08/16 at 12:00 Ferrous Sulfate (Feosol Liquid Cup) 330 mg BID GTB Last administered on 08:36; Admin Dose 330 MG; Start 07/07/16 at 21:00 Insulin Glargine (Lantus) 10 unit QHS SC Last administered on 07/08/16 20:56; Admin Dose 10 UNIT; Start 07/07/16 at 21:00 Lansoprazole (Prevacid) 30 mg DAILY GTB Last administered on 07/09/16 08:36; Admin Dose 30 MG; Start 07/08/16 at 09:00 Levalbuterol (Xopenex Neb) 0.63 mg Q6H PRN NEB WHEEZING AND SOB; Start at 12:00 Magnesium Hydroxide (Milk Of Mag) 30 ml DAILY PRN GTB CONSTIPATION; Start 07/07 at 12:00 Metoclopramide HCl (Reglan) 10 mg Q6 PRN GTB NAUSEA AND/OR VOMITING; Start at 17:00 Sodium Biphosphate/ Sodium Phosphate (Fleet Enema) 135 ml PRN PRN [place] severe constipation; Start 07/07/16 at 17:00 Quetiapine Fumarate (Seroquel) 12.5 mg DAILY GTB Last administered on 07/09/16 08:37; Admin Dose 12.5 MG; Start 07/08/16 at 09:00 Valsartan (Diovan) 80 mg DAILY GTB Last administered on 07/09/16 08:37; Admin Dose 80 MG; Start 07/08/16 at 09:00 Zinc Sulfate (Zinc Sulfate) 220 mg DAILY GTB Last administered on 07/09/16 08: 55; Admin Dose 220 MG; Start 07/08/16 at 09:00 Multivitamins (Thera-Plus) 5 ml DAILY GTB Last administered on 07/09/16 08:36; Admin Dose 5 ML; Start 07/08/16 at 09:00 Insulin Aspart (Novolog Insulin Pen) NOVOLOG *MILD* ALGORI... Q4 SC Last administered on 07/09/16 12:35; Admin Dose 2 UNIT; Start 07/07/16 at 17:00 Ascorbic Acid (Vitamin C) 500 mg DAILY GTB Last administered on 07/09/16 08:37 ; Admin Dose 500 MG; Start 07/08/16 at 09:00 Miscellaneous Information 1 ea NOTE XX ; Start 07/07/16 at 17:30 Glucose (Glutose) 15 gm Q15M PRN PO DECREASED GLUCOSE; Start 07/07/16 at 17:30 Glucose (Glutose) 22.5 gm Q15M PRN PO DECREASED GLUCOSE; Start 07/07/16 at 17: 30 Dextrose (D50w Syringe) 25 ml Q15M PRN IV DECREASED GLUCOSE; Start 07/07/16 at 17:30 Dextrose (D50w Syringe) 50 ml Q15M PRN IV DECREASED GLUCOSE; Start 07/07/16 at 17:30 Glucagon (Glucagen) 1 mg Q15M PRN IM DECREASED GLUCOSE; Start 07/07/16 at 17:30 Glucose 15 gm 15 gm Q15M PRN BUCCAL DECREASED GLUCOSE; Start 07/07/16 at 17:30 Meropenem 100 ml @ 200 mls/hr Q8H IVPB Last administered on 07/09/16t 08:00; Admin Dose 200 MLS/HR; Start 07/08/16 at 16:00 Vancomycin HCl/ Sodium Chloride (Vancocin/NS) 250 ml @ 83.333 mls/ hr Q24H IVPB ; Start 07/09/16 at 17:00 Sodium Hypochlorite (Dakin'S (1/4 Strength)) 1 applic BID IRR ; Start 07/09/16 at 21:00 Assessment/Plan Additional Assessment/Plan IMP: 1. Vent dependent respiratory failure 2. History of CVA with hemiplegia 3. History of encephalopathy chronic secondary to above 4. Leukocytosis 5. Anemia evidenceel 6. History of dysphagia with G-tube 7. History of atrial fibrillation RECS: 1. Follow H/H 2. Am labs 3. Vent support 4. Suspect abnl resp cx represents colonization JACK DSOUZA MD Jul 09, 2016 14:10
[2016-07-09] MEDS: VANCOMYCIN 1.25 GM in SOD CHLORIDE 0.9% 250 ML IVPB SCH (17:07)
[2016-07-09] MEDS: COLISTIMETHATE (25 MG/ML INHAL SYG) NEB SCH (21:51)
[2016-07-09] MEDS: LEVALBUTEROL (NEB) 0.63 MG/3 ML AMP NEB PRN (21:52)
[2016-07-09] MEDS: SODIUM HYPOCHLORITE 0.125% 473 ML BTL IRR SCH (21:59)
[2016-07-09] MEDS: INSULIN GLARGINE [LANtus] 3 ML PEN SC SCH (22:08)
[2016-07-10] VITALS (26 sets, daily range): BP systolic 96–148; BP diastolic 34–67; PULSE 77–112; RESP 15–31
[2016-07-10] MEDS: ACETAMINOPHEN 325 MG TAB GTB PRN (00:28)
[2016-07-10] MEDS: MEROPENEM 500 MG/100 ML (PMX) 100 ML IVPB SCH ×4 (01:42→23:39)
[2016-07-10] MEDS: INSULIN ASPART [NOVOLOG] 3 ML PEN SC SCH ×6 (01:56→20:48)
[2016-07-10 05:35] LABS: ADD SCAN DIFF NO
[2016-07-10 05:38] LABS: ABNORMAL IP MESSAGE 1; BASOPHILS % 0.1 % (0.0-2.0); EOSINOPHILS # 0.8 10^3/ul (0.0-0.5); EOSINOPHILS % 4.9 % (0.0-7.0); HEMATOCRIT 31.1 % (37.0-47.0); HEMOGLOBIN 9.2 g/dl (12.0-16.0); LYMPHOCYTES # 3.6 10^3/ul (0.8-2.9); LYMPHOCYTES % 22.5 % (15.0-51.0); MEAN CORPUSCULAR HGB CONC 29.6 g/dl (32.0-37.0); MEAN CORPUSCULAR VOLUME 91.2 fl (82.0-101.0); MEAN PLATELET VOLUME 10.6 fl (7.4-10.4); MONOCYTE # 1.7 10^3/ul (0.3-0.9); MONOCYTES % 10.7 % (0.0-11.0); NEUTROPHIL # 9.8 10^3/ul (1.6-7.5); NUCLEATED RED BLOOD CELLS% 0.2 /100WBC (0.0-0.0); PLATELET COUNT 542 10^3/UL (140-415); RED BLOOD COUNT 3.41 10^6/ul (4.20-5.40); RED CELL DISTRIBUTION WIDTH 22.2 % (11.5-14.5); WHITE BLOOD COUNT 16.1 10^3/ul (4.8-10.8)
[2016-07-10 06:05] LABS: POTASSIUM 4.5 mmol/L (3.5-5.1)
[2016-07-10 06:08] LABS: CREATININE 0.65 mg/dl (0.44-1.00)
[2016-07-10 06:09] LABS: CALCIUM 9.4 mg/dl (8.4-10.2)
[2016-07-10 07:14] LABS: FOLATE > 20.0 ng/ml (2.8-20.0)
[2016-07-10] MEDS: DOCUSATE SODIUM 100 MG CAP PO SCH (08:17)
[2016-07-10] MEDS: ZINC SULFATE 220 MG CAP GTB SCH (08:17)
[2016-07-10] MEDS: MULTIVITAMINS 5 ML CUP GTB SCH (08:17)
[2016-07-10] MEDS: FERROUS SULFATE 60 MG/ML 5ML CUP GTB SCH ×2 (08:17→20:36)
[2016-07-10] MEDS: CHLORHEXIDINE GLUCONATE 15 ML UD CUP MM SCH ×2 (08:17→20:37)
[2016-07-10] MEDS: QUETIAPINE 25 MG TAB GTB SCH (08:18)
[2016-07-10] MEDS: VALSARTAN 80 MG TAB GTB SCH (08:18)
[2016-07-10] MEDS: APIXABAN 5 MG TABLET GTB SCH ×2 (08:18→20:36)
[2016-07-10] MEDS: ASCORBIC ACID 500 MG TAB GTB SCH (08:18)
[2016-07-10] MEDS: clonAZEPAM 0.5 MG TAB GTB SCH ×3 (08:18→20:50)
[2016-07-10] MEDS: LANSOPRAZOLE 30 MG CAP GTB SCH (08:18)
[2016-07-10] MEDS: SODIUM HYPOCHLORITE 0.125% 473 ML BTL IRR SCH ×2 (08:22→23:13)
[2016-07-10] MEDS: COLISTIMETHATE (25 MG/ML INHAL SYG) NEB SCH ×2 (08:53→21:11)
--- NOTE | 2016-07-10 11:11 | PN ---
Date/Time of Note Date/Time of Note DATE: 07/10/16 TIME: 11:10 Assessment/Plan VTE Prophylaxis VTE Prophylaxis Intervention: other Lines/Catheters IV Catheter Type (from [facility]): Saline Lock Urinary Cath still in place: Yes Reason Cath still needed: skin wounds contaminated by urine Assessment/Plan Chief Complaint/Hosp Course 1. Acute on chronic respiratory failure secondary to pneumonia. Dr. Mcbride is following in pulmonology consultation. Continue ventilator support and bronchodilators. 2. Sepsis secondary to pneumonia and possible urinary tract infection. Will continue to follow up on cultures. Continue broad-spectrum antibiotics. Dr. Hernadez is following in infectious disease consultation. 3. Acute anemia, with a drop in hemoglobin to 6.9. Patient is currently undergoing a blood transfusion. Will obtain stool for OB and anemia panel. 4. 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 5. History of CVA. 6. Cardiomyopathy, with an ejection fraction of 45%. 7. Diastolic dysfunction congestive heart failure. 8. Chronic pain syndrome. 9. Ventilator-dependent respiratory failure with tracheostomy. 10. Dysphagia with G-tube placement. 11. Multiple wounds present on admission. Problems: Subjective 24 Hr Interval Summary Free Text/Dictation Eyes open but patient is nonverbal, on ventilator via trach Exam/Review of Systems Vital Signs Vitals Vital Signs Date Time Temp Pulse Resp B/P Pulse Ox O2 Delivery O2 Flow Rate FiO2 07/10/16 10:00 90 23 142/62 96 Mechanical Ventilator 07/10/16 09:00 30 07/10/16 06:00 98.7 07/07/16 10:00 10.0 Intake and Output 07/09/16 07/09/16 07/10/16 15:00 23:00 07:00 Intake Total 410 ml 1475 ml 540 ml Output Total 160 ml 830 ml 345 ml Balance 250 ml 645 ml 195 ml Exam Constitutional: well developed Head: atraumatic, normocephalic Neck: supple Respiratory: diminished breath sounds Cardiovascular: regular rate and rhythm Gastrointestinal: non-tender, soft Extremities: normal pulses Results Result Diagram: 07/10/16 0507 07/10/16 0507 Results 24 hrs Laboratory Tests Test 07/09/16 12:13 07/09/16 17:06 07/09/16 22:02 07/10/16 01:53 Bedside Glucose 208 195 200 202 Test 07/10/16 05:07 07/10/16 05:14 07/10/16 08:53 White Blood Count 16.1 H Red Blood Count 3.41 L Hemoglobin 9.2 L Hematocrit 31.1 L Mean Corpuscular Volume 91.2 Mean Corpuscular Hemoglobin 27.0 L Mean Corpuscular Hemoglobin Concent 29.6 L Red Cell Distribution Width 22.2 H Platelet Count 542 H Mean Platelet Volume 10.6 H Neutrophils % 61.0 Lymphocytes % 22.5 Monocytes % 10.7 Eosinophils % 4.9 Basophils % 0.1 Nucleated Red Blood Cells % 0.2 H Neutrophils # 9.8 H Lymphocytes # 3.6 H Monocytes # 1.7 H Eosinophils # 0.8 H Basophils # 0.0 Nucleated Red Blood Cells # 0.0 Absolute Reticulocyte Count 0.032 Percent Reticulocyte Count 1.0 Sodium Level 137 Potassium Level 4.5 Chloride Level 101 Carbon Dioxide Level 31 Anion Gap 10 Blood Urea Nitrogen 28 H Creatinine 0.65 Glucose Level 171 Calcium Level 9.4 Ferritin 783.0 H Vitamin B12 Level 414 Folate > 20.0 H Bedside Glucose 173 159 Medications Medications Current Medications Acetaminophen (Tylenol Tab) 650 mg Q6 PRN GTB PAIN Last administered on 00:28; Admin Dose 650 MG; Start 07/07/16 at 12:00 Apixaban (Eliquis) 5 mg BID GTB Last administered on 07/10/16 08:18; Admin Dose 5 MG; Start 07/07/16 at 21:00 Bisacodyl (Dulcolax Supp) 10 mg PRN [place] ; Start 07/07/16 at 12:00 Carvedilol (Coreg) 3.125 mg BID GTB Last administered on 07/10/16 08:18; Admin Dose 3.125 MG; Start 07/07/16 at 21:00 Chlorhexidine Gluconate (Peridex) 15 ml Q12 MM Last administered on 07/10/16 08 :17; Admin Dose 15 ML; Start 07/07/16 at 21:00 Clonazepam (Klonopin) 0.5 mg TID GTB Last administered on 07/10/16 08:18; Admin Dose 0.5 MG; Start 07/07/16 at 13:00 Docusate Sodium (Colace) 100 mg DAILY PO Last administered on 07/10/16 08:17; Admin Dose 100 MG; Start 07/08/16 at 09:00 Fentanyl (Duragesic 50 Mcg/Hr Patch) 1 patch Q72H TRANSDERM Last administered on 07/08/16 14:12; Admin Dose 1 PATCH; Start 07/08/16 at 12:00 Ferrous Sulfate (Feosol Liquid Cup) 330 mg BID GTB Last administered on 08:17; Admin Dose 330 MG; Start 07/07/16 at 21:00 Insulin Glargine (Lantus) 10 unit QHS SC Last administered on 07/09/16 22:08; Admin Dose 10 UNIT; Start 07/07/16 at 21:00 Lansoprazole (Prevacid) 30 mg DAILY GTB Last administered on 07/10/16 08:18; Admin Dose 30 MG; Start 07/08/16 at 09:00 Levalbuterol (Xopenex Neb) 0.63 mg Q6H PRN NEB WHEEZING AND SOB Last administered on 07/09/16 21:52; Admin Dose 0.63 MG; Start 07/07/16 at 12:00 Magnesium Hydroxide (Milk Of Mag) 30 ml DAILY PRN GTB CONSTIPATION; Start 07/07 at 12:00 Metoclopramide HCl (Reglan) 10 mg Q6 PRN GTB NAUSEA AND/OR VOMITING; Start at 17:00 Sodium Biphosphate/ Sodium Phosphate (Fleet Enema) 135 ml PRN PRN [place] severe constipation; Start 07/07/16 at 17:00 Quetiapine Fumarate (Seroquel) 12.5 mg DAILY GTB Last administered on 07/10/16 08:18; Admin Dose 12.5 MG; Start 07/08/16 at 09:00 Valsartan (Diovan) 80 mg DAILY GTB Last administered on 07/10/16 08:18; Admin Dose 80 MG; Start 07/08/16 at 09:00 Zinc Sulfate (Zinc Sulfate) 220 mg DAILY GTB Last administered on 07/10/16 08: 17; Admin Dose 220 MG; Start 07/08/16 at 09:00 Multivitamins (Thera-Plus) 5 ml DAILY GTB Last administered on 07/10/16 08:17; Admin Dose 5 ML; Start 07/08/16 at 09:00 Insulin Aspart (Novolog Insulin Pen) NOVOLOG *MILD* ALGORI... Q4 SC Last administered on 07/10/16 08:57; Admin Dose 1 UNIT; Start 07/07/16 at 17:00 Ascorbic Acid (Vitamin C) 500 mg DAILY GTB Last administered on 07/10/16 08:18 ; Admin Dose 500 MG; Start 07/08/16 at 09:00 Miscellaneous Information 1 ea NOTE XX ; Start 07/07/16 at 17:30 Glucose (Glutose) 15 gm Q15M PRN PO DECREASED GLUCOSE; Start 07/07/16 at 17:30 Glucose (Glutose) 22.5 gm Q15M PRN PO DECREASED GLUCOSE; Start 07/07/16 at 17: 30 Dextrose (D50w Syringe) 25 ml Q15M PRN IV DECREASED GLUCOSE; Start 07/07/16 at 17:30 Dextrose (D50w Syringe) 50 ml Q15M PRN IV DECREASED GLUCOSE; Start 07/07/16 at 17:30 Glucagon (Glucagen) 1 mg Q15M PRN IM DECREASED GLUCOSE; Start 07/07/16 at 17:30 Glucose 15 gm 15 gm Q15M PRN BUCCAL DECREASED GLUCOSE; Start 07/07/16 at 17:30 Meropenem 100 ml @ 200 mls/hr Q8H IVPB Last administered on 07/10/16 08:17; Admin Dose 200 MLS/HR; Start 07/08/16 at 16:00 Vancomycin HCl/ Sodium Chloride (Vancocin/NS) 250 ml @ 83.333 mls/ hr Q24H IVPB Last administered on 07/09/16 17:07; Admin Dose 83.333 MLS/HR; Start at 17:00 Sodium Hypochlorite (Dakin'S (1/4 Strength)) 1 applic BID IRR Last administered on 07/10/16 08:22; Admin Dose 1 APPLIC; Start 07/09/16 at 21:00 MICHOACANO HOBBS Jul 10, 2016 11:11
[2016-07-10] MEDS: HYDROCODONE/APAP (5/325) TAB GTB PRN (12:30)
--- NOTE | 2016-07-10 13:07 | CONS ---
Date/Time of Note Date/Time of Note DATE: 07/10/16 TIME: 13:06 Consult Date/Type/Reason Admit Date/Time Jul 06, 2016 at 22:42 Initial Consult Date 07/07/16 Type of Consultation: Pulmonary/critical care Subjective No events on vent. Objective Vital Signs Date Time Temp Pulse Resp B/P Pulse Ox O2 Delivery O2 Flow Rate FiO2 07/10/16 12:00 91 07/10/16 12:00 25 148/53 96 Mechanical Ventilator 07/10/16 11:25 30 07/10/16 06:00 98.7 07/07/16 10:00 10.0 Intake and Output 07/09/16 07/09/16 07/10/16 15:00 23:00 07:00 Intake Total 410 ml 1475 ml 540 ml Output Total 160 ml 830 ml 345 ml Balance 250 ml 645 ml 195 ml Exam HEENT: Neck supple; no JVD; no LAD, trach site CVS: RRR, S1 and S2 CHEST: Clear ABD: Soft, NT, + BS EXT: No c/c; + edema Results/Medications Result Diagram: 07/10/16 0507 07/10/16 0507 Results 24 hrs Laboratory Tests Test 07/09/16 17:06 07/09/16 22:02 07/10/16 01:53 07/10/16 05:07 Bedside Glucose 195 200 202 White Blood Count 16.1 H Red Blood Count 3.41 L Hemoglobin 9.2 L Hematocrit 31.1 L Mean Corpuscular Volume 91.2 Mean Corpuscular Hemoglobin 27.0 L Mean Corpuscular Hemoglobin Concent 29.6 L Red Cell Distribution Width 22.2 H Platelet Count 542 H Mean Platelet Volume 10.6 H Neutrophils % 61.0 Lymphocytes % 22.5 Monocytes % 10.7 Eosinophils % 4.9 Basophils % 0.1 Nucleated Red Blood Cells % 0.2 H Neutrophils # 9.8 H Lymphocytes # 3.6 H Monocytes # 1.7 H Eosinophils # 0.8 H Basophils # 0.0 Nucleated Red Blood Cells # 0.0 Absolute Reticulocyte Count 0.032 Percent Reticulocyte Count 1.0 Sodium Level 137 Potassium Level 4.5 Chloride Level 101 Carbon Dioxide Level 31 Anion Gap 10 Blood Urea Nitrogen 28 H Creatinine 0.65 Glucose Level 171 Calcium Level 9.4 Ferritin 783.0 H Vitamin B12 Level 414 Folate > 20.0 H Test 07/10/16 05:14 07/10/16 08:53 07/10/16 12:34 Bedside Glucose 173 159 159 Medications Current Medications Acetaminophen (Tylenol Tab) 650 mg Q6 PRN GTB PAIN Last administered on 00:28; Admin Dose 650 MG; Start 07/07/16 at 12:00 Apixaban (Eliquis) 5 mg BID GTB Last administered on 07/10/16 08:18; Admin Dose 5 MG; Start 07/07/16 at 21:00 Bisacodyl (Dulcolax Supp) 10 mg PRN [place] ; Start 07/07/16 at 12:00 Carvedilol (Coreg) 3.125 mg BID GTB Last administered on 07/10/16 08:18; Admin Dose 3.125 MG; Start 07/07/16 at 21:00 Chlorhexidine Gluconate (Peridex) 15 ml Q12 MM Last administered on 07/10/16 08 :17; Admin Dose 15 ML; Start 07/07/16 at 21:00 Clonazepam (Klonopin) 0.5 mg TID GTB Last administered on 07/10/16 12:34; Admin Dose 0.5 MG; Start 07/07/16 at 13:00 Docusate Sodium (Colace) 100 mg DAILY PO Last administered on 07/10/16 08:17; Admin Dose 100 MG; Start 07/08/16 at 09:00 Fentanyl (Duragesic 50 Mcg/Hr Patch) 1 patch Q72H TRANSDERM Last administered on 07/08/16 14:12; Admin Dose 1 PATCH; Start 07/08/16 at 12:00 Ferrous Sulfate (Feosol Liquid Cup) 330 mg BID GTB Last administered on 08:17; Admin Dose 330 MG; Start 07/07/16 at 21:00 Insulin Glargine (Lantus) 10 unit QHS SC Last administered on 07/09/16 22:08; Admin Dose 10 UNIT; Start 07/07/16 at 21:00 Lansoprazole (Prevacid) 30 mg DAILY GTB Last administered on 07/10/16 08:18; Admin Dose 30 MG; Start 07/08/16 at 09:00 Levalbuterol (Xopenex Neb) 0.63 mg Q6H PRN NEB WHEEZING AND SOB Last administered on 07/09/16 21:52; Admin Dose 0.63 MG; Start 07/07/16 at 12:00 Magnesium Hydroxide (Milk Of Mag) 30 ml DAILY PRN GTB CONSTIPATION; Start 07/07 at 12:00 Metoclopramide HCl (Reglan) 10 mg Q6 PRN GTB NAUSEA AND/OR VOMITING; Start at 17:00 Sodium Biphosphate/ Sodium Phosphate (Fleet Enema) 135 ml PRN PRN [place] severe constipation; Start 07/07/16 at 17:00 Quetiapine Fumarate (Seroquel) 12.5 mg DAILY GTB Last administered on 07/10/16 08:18; Admin Dose 12.5 MG; Start 07/08/16 at 09:00 Valsartan (Diovan) 80 mg DAILY GTB Last administered on 07/10/16 08:18; Admin Dose 80 MG; Start 07/08/16 at 09:00 Zinc Sulfate (Zinc Sulfate) 220 mg DAILY GTB Last administered on 07/10/16 08: 17; Admin Dose 220 MG; Start 07/08/16 at 09:00 Multivitamins (Thera-Plus) 5 ml DAILY GTB Last administered on 07/10/16 08:17; Admin Dose 5 ML; Start 07/08/16 at 09:00 Insulin Aspart (Novolog Insulin Pen) NOVOLOG *MILD* ALGORI... Q4 SC Last administered on 07/10/16 12:39; Admin Dose 1 UNIT; Start 07/07/16 at 17:00 Ascorbic Acid (Vitamin C) 500 mg DAILY GTB Last administered on 07/10/16 08:18 ; Admin Dose 500 MG; Start 07/08/16 at 09:00 Miscellaneous Information 1 ea NOTE XX ; Start 07/07/16 at 17:30 Glucose (Glutose) 15 gm Q15M PRN PO DECREASED GLUCOSE; Start 07/07/16 at 17:30 Glucose (Glutose) 22.5 gm Q15M PRN PO DECREASED GLUCOSE; Start 07/07/16 at 17: 30 Dextrose (D50w Syringe) 25 ml Q15M PRN IV DECREASED GLUCOSE; Start 07/07/16 at 17:30 Dextrose (D50w Syringe) 50 ml Q15M PRN IV DECREASED GLUCOSE; Start 07/07/16 at 17:30 Glucagon (Glucagen) 1 mg Q15M PRN IM DECREASED GLUCOSE; Start 07/07/16 at 17:30 Glucose 15 gm 15 gm Q15M PRN BUCCAL DECREASED GLUCOSE; Start 07/07/16 at 17:30 Meropenem 100 ml @ 200 mls/hr Q8H IVPB Last administered on 07/10/16 08:17; Admin Dose 200 MLS/HR; Start 07/08/16 at 16:00 Vancomycin HCl/ Sodium Chloride (Vancocin/NS) 250 ml @ 83.333 mls/ hr Q24H IVPB Last administered on 07/09/16 17:07; Admin Dose 83.333 MLS/HR; Start at 17:00 Sodium Hypochlorite (Dakin'S (1/4 Strength)) 1 applic BID IRR Last administered on 07/10/16 08:22; Admin Dose 1 APPLIC; Start 07/09/16 at 21:00 Miscellaneous Information (*Rx Drug Level Order Reminder*) VANCOMYCIN TROUGH 07/11 AT 1600 ONCE ONCE XX ; Start 07/11/16 at 16:00; Stop 07/11/16 at 16:01 Assessment/Plan Additional Assessment/Plan IMP: 1. Vent dependent respiratory failure 2. History of CVA with hemiplegia 3. History of encephalopathy chronic secondary to above 4. Leukocytosis 5. Anemia evidenceel 6. History of dysphagia with G-tube 7. History of atrial fibrillation RECS: 1. Follow H/H 2. Am labs 3. Vent support 4. Suspect abnl resp cx represents colonization 5. Okay for transfer to [facility] JACK DSOUZA MD Jul 10, 2016 13:07
--- NOTE | 2016-07-10 14:50 | PN ---
DATE: 07/10/2016 SUBJECTIVE: No events overnight. The patient spiked a fever of 101 last night. Currently afebrile . VITAL SIGNS: Temperature 98.7, pulse 92, respirations 19, blood pressure 142/62, saturation 96% on 30 FiO2. WBC 16.1, H and H 9.2 and 31.1, platelets 542, neutrophils 61, BUN 28, creatinine 0.65. MICROBIOLOGY: Sputum culture grew Serratia Proteus and Pseudomonas aeruginosa. INDWELLINGS: Trach, PEG, Rivera. ANTIMICROBIALS: 1. Vancomycin. 2. Colistin inhalation. 3. Meropenem. PHYSICAL EXAMINATION: GENERAL: This is a chronically ill-appearing, elderly woman who is in no distress. HEENT: Head atraumatic, normocephalic. Sclerae anicteric. Buccal mucosa dry. NECK: Supple. CHEST: Rise symmetrical. Breath sounds diminished to bases. HEART: S1, S2. ABDOMEN: Soft. Bowel tones present. EXTREMITIES: Left lower extremity dressing intact. ASSESSMENT: 1. Sepsis. 2. Left lower extremity cellulitis with gangrene. 3. Severe peripheral vascular disease. 4. Diabetes. 5. Chronic encephalopathy. PLAN: The patient remains unchanged. She is on appropriate antimicrobials. She is being followed by multiple consultants, not a candidate for revascularization as per previous vascular team. Podiat ry on case. Continue present care. Repeat blood cultures p.r.n. Dictated By: JEFF SERNA SENIOR MECHANICAL TECHNICIAN for ANGEL HUANG MD NI/NTS Conf#: [id number] DID#: [id number] CC: ANGEL HUANG MD; KLEVER SON MD;*End*
--- NOTE | 2016-07-10 14:58 | CONS ---
DATE OF ADMISSION: 07/06/2016 DATE OF CONSULTATION: 07/10/2016 SUBJECTIVE FINDINGS: The patient is being followed for right foot ulceration and gangrene malodorous wounds. The patient remains in ICU with ventilator- dependent respiratory failure, on mechanical ventilation. Patient with recent catheterization. Patient is status post blood transfusion. Wound care initiated with Dakin's irrigation. Patient has cultures with sputum positive for Serratia, Proteus and Pseudomonas. OBJECTIVE FINDINGS VITAL SIGNS: Temperature is 98.7, pulse is 91, respiratory 19, blood pressure 141/66, pulse oximetry is 97, mechanical ventilation FiO2 30. GENERAL: Patient resting comfortably, no acute distress. Has agitation with dressing changes. EXTREMITIES: The left lower extremity is warm. There is an ulceration on the posterior calf with necrotic skin, subcutaneous tissue and liquefied adipose tissue. There is malodor. No visible abscess formation. The patient has dry gangrene of multiple toes and posterior aspect of the heel. The patient does have fecal malodor to the wound. Patient has multiple gangrenous patches along the anterior medial foot and ankle. LABORATORIES: WBC 16.1, hemoglobin 9.2, hematocrit 31.1, platelets 542. Sodium 137, potassium 4.5, chloride 101, CO2 of 31, BUN 28, creatinine 0.65, glucose 171. ASSESSMENT: 1. Sepsis. 2. Urinary tract infection and pneumonia. 3. Anemia. 4. Left foot diabetic foot ulceration. 5. Left foot gangrene. 6. Peripheral arterial disease. 7. Dysphagia. 8. Encephalopathy. 9. Ventilator-dependent respiratory failure. PLAN: The patient is seen and evaluated. Skin care/wound care with nursing assistance. Poor prognosis for healing. Can perform bedside debridement to help decrease the malodor. Continue antiseptic precautions, and irrigation with Dakin's and Silvadene. Dictated By: NUBIA GATICA/DENNIS Conf#: [id number] DID#: [id number] MTDD
[2016-07-10] MEDS: VANCOMYCIN 1.25 GM in SOD CHLORIDE 0.9% 250 ML IVPB SCH (16:42)
--- NOTE | 2016-07-10 16:53 | CONS ---
Date/Time of Note Date/Time of Note DATE: 07/10/16 TIME: 16:51 Assessment/Plan Assessment/Plan Additional Assessment/Plan IMPRESSION: 1. Sepsis, most probably from pneumonia and urinary tract infection. 2. Severe anemia. No evidence of acute gastrointestinal bleeding. 3. Left lower extremity cellulitis, chronic wound with left foot gangrene. 4. Peripheral vascular disease. 5. Dysphagia, status post percutaneous endoscopic gastrostomy. 6. Cerebrovascular accident. 7. Encephalopathy. 8. Osteoarthritis. 9. Vent dependent respiratory failure. 10. Cardiomyopathy with ejection fraction of 45%. Plan Patient reticulocyte count is poor. His B12 folic acid and ferritin within normal limit. His stool for occult blood was negative. We might be dealing with myelodysplastic syndrome. Patient needs bone marrow biopsy. Consultation Date/Type/Reason Admit Date/Time Jul 06, 2016 at 22:42 Initial Consult Date 07/07/16 Type of Consultation: Pulmonary/critical care 24 HR Interval Summary Free Text/Dictation Discussed with the staff no evidence of active GI bleeding. Subjective hx not possible: pt non-verbal, pt critical Constitutional: no complaints Exam/Review of Systems Vital Signs Vitals Vital Signs Date Time Temp Pulse Resp B/P Pulse Ox O2 Delivery O2 Flow Rate FiO2 07/10/16 16:00 83 17 120/57 98 Mechanical Ventilator 07/10/16 15:48 30 07/10/16 06:00 98.7 07/07/16 10:00 10.0 Intake and Output 07/09/16 07/09/16 07/10/16 15:00 23:00 07:00 Intake Total 410 ml 1475 ml 540 ml Output Total 160 ml 830 ml 345 ml Balance 250 ml 645 ml 195 ml Exam Constitutional: alert, oriented, well developed Psych: nl mood/affect, no complaints Head: atraumatic, normocephalic Eyes: EOMI, PERRL, nl conjunctiva, nl lids, nl sclera ENMT: nl external ears & nose, nl lips & teeth, nl nasal mucosa & septum Neck: non-tender, supple Respiratory: clear to auscultation, normal air movement Cardiovascular: nl pulses, regular rate and rhythm Gastrointestinal: nl liver, spleen, non-tender, soft Musculoskeletal: nl extremities to inspection, nl gait and stance Extremities: normal pulses Neurological: STREET [employer]CH[employer]IC II-XII intact, nl mental status, nl speech, nl strength Skin: nl turgor, No rash or lesions Lymph: nl lymph nodes Results Result Diagram: 07/10/16 0507 07/10/16 0507 Results 24 hrs Laboratory Tests Test 07/09/16 17:06 07/09/16 22:02 07/10/16 01:53 07/10/16 05:07 Bedside Glucose 195 200 202 White Blood Count 16.1 H Red Blood Count 3.41 L Hemoglobin 9.2 L Hematocrit 31.1 L Mean Corpuscular Volume 91.2 Mean Corpuscular Hemoglobin 27.0 L Mean Corpuscular Hemoglobin Concent 29.6 L Red Cell Distribution Width 22.2 H Platelet Count 542 H Mean Platelet Volume 10.6 H Neutrophils % 61.0 Lymphocytes % 22.5 Monocytes % 10.7 Eosinophils % 4.9 Basophils % 0.1 Nucleated Red Blood Cells % 0.2 H Neutrophils # 9.8 H Lymphocytes # 3.6 H Monocytes # 1.7 H Eosinophils # 0.8 H Basophils # 0.0 Nucleated Red Blood Cells # 0.0 Absolute Reticulocyte Count 0.032 Percent Reticulocyte Count 1.0 Sodium Level 137 Potassium Level 4.5 Chloride Level 101 Carbon Dioxide Level 31 Anion Gap 10 Blood Urea Nitrogen 28 H Creatinine 0.65 Glucose Level 171 Calcium Level 9.4 Ferritin 783.0 H Vitamin B12 Level 414 Folate > 20.0 H Test 07/10/16 05:14 07/10/16 08:53 07/10/16 12:34 07/10/16 16:45 Bedside Glucose 173 159 159 138 Medications Medications Current Medications Acetaminophen (Tylenol Tab) 650 mg Q6 PRN GTB PAIN Last administered on 00:28; Admin Dose 650 MG; Start 07/07/16 at 12:00 Apixaban (Eliquis) 5 mg BID GTB Last administered on 07/10/16 08:18; Admin Dose 5 MG; Start 07/07/16 at 21:00 Bisacodyl (Dulcolax Supp) 10 mg PRN [place] ; Start 07/07/16 at 12:00 Carvedilol (Coreg) 3.125 mg BID GTB Last administered on 07/10/16 08:18; Admin Dose 3.125 MG; Start 07/07/16 at 21:00 Chlorhexidine Gluconate (Peridex) 15 ml Q12 MM Last administered on 07/10/16 08 :17; Admin Dose 15 ML; Start 07/07/16 at 21:00 Clonazepam (Klonopin) 0.5 mg TID GTB Last administered on 07/10/16 12:34; Admin Dose 0.5 MG; Start 07/07/16 at 13:00 Docusate Sodium (Colace) 100 mg DAILY PO Last administered on 07/10/16 08:17; Admin Dose 100 MG; Start 07/08/16 at 09:00 Fentanyl (Duragesic 50 Mcg/Hr Patch) 1 patch Q72H TRANSDERM Last administered on 07/08/16 14:12; Admin Dose 1 PATCH; Start 07/08/16 at 12:00 Ferrous Sulfate (Feosol Liquid Cup) 330 mg BID GTB Last administered on 08:17; Admin Dose 330 MG; Start 07/07/16 at 21:00 Insulin Glargine (Lantus) 10 unit QHS SC Last administered on 07/09/16 22:08; Admin Dose 10 UNIT; Start 07/07/16 at 21:00 Lansoprazole (Prevacid) 30 mg DAILY GTB Last administered on 07/10/16 08:18; Admin Dose 30 MG; Start 07/08/16 at 09:00 Levalbuterol (Xopenex Neb) 0.63 mg Q6H PRN NEB WHEEZING AND SOB Last administered on 07/09/16 21:52; Admin Dose 0.63 MG; Start 07/07/16 at 12:00 Magnesium Hydroxide (Milk Of Mag) 30 ml DAILY PRN GTB CONSTIPATION; Start 07/07 at 12:00 Metoclopramide HCl (Reglan) 10 mg Q6 PRN GTB NAUSEA AND/OR VOMITING; Start at 17:00 Sodium Biphosphate/ Sodium Phosphate (Fleet Enema) 135 ml PRN PRN [place] severe constipation; Start 07/07/16 at 17:00 Quetiapine Fumarate (Seroquel) 12.5 mg DAILY GTB Last administered on 07/10/16 08:18; Admin Dose 12.5 MG; Start 07/08/16 at 09:00 Valsartan (Diovan) 80 mg DAILY GTB Last administered on 07/10/16 08:18; Admin Dose 80 MG; Start 07/08/16 at 09:00 Zinc Sulfate (Zinc Sulfate) 220 mg DAILY GTB Last administered on 07/10/16 08: 17; Admin Dose 220 MG; Start 07/08/16 at 09:00 Multivitamins (Thera-Plus) 5 ml DAILY GTB Last administered on 07/10/16 08:17; Admin Dose 5 ML; Start 07/08/16 at 09:00 Insulin Aspart (Novolog Insulin Pen) NOVOLOG *MILD* ALGORI... Q4 SC Last administered on 07/10/16 12:39; Admin Dose 1 UNIT; Start 07/07/16 at 17:00 Ascorbic Acid (Vitamin C) 500 mg DAILY GTB Last administered on 07/10/16 08:18 ; Admin Dose 500 MG; Start 07/08/16 at 09:00 Miscellaneous Information 1 ea NOTE XX ; Start 07/07/16 at 17:30 Glucose (Glutose) 15 gm Q15M PRN PO DECREASED GLUCOSE; Start 07/07/16 at 17:30 Glucose (Glutose) 22.5 gm Q15M PRN PO DECREASED GLUCOSE; Start 07/07/16 at 17: 30 Dextrose (D50w Syringe) 25 ml Q15M PRN IV DECREASED GLUCOSE; Start 07/07/16 at 17:30 Dextrose (D50w Syringe) 50 ml Q15M PRN IV DECREASED GLUCOSE; Start 07/07/16 at 17:30 Glucagon (Glucagen) 1 mg Q15M PRN IM DECREASED GLUCOSE; Start 07/07/16 at 17:30 Glucose 15 gm 15 gm Q15M PRN BUCCAL DECREASED GLUCOSE; Start 07/07/16 at 17:30 Meropenem 100 ml @ 200 mls/hr Q8H IVPB Last administered on 07/10/16 15:33; Admin Dose 200 MLS/HR; Start 07/08/16 at 16:00 Vancomycin HCl/ Sodium Chloride (Vancocin/NS) 250 ml @ 83.333 mls/ hr Q24H IVPB Last administered on 07/10/16 16:42; Admin Dose 83.333 MLS/HR; Start at 17:00 Sodium Hypochlorite (Dakin'S (1/4 Strength)) 1 applic BID IRR Last administered on 4/2/17at 08:22; Admin Dose 1 APPLIC; Start 07/09/16 at 21:00 Miscellaneous Information (*Rx Drug Level Order Reminder*) VANCOMYCIN TROUGH 07/11 AT 1600 ONCE ONCE XX ; Start 07/11/16 at 16:00; Stop 07/11/16 at 16:01 INES TORRE MD Jul 10, 2016 16:53
[2016-07-10] MEDS: INSULIN GLARGINE [LANtus] 3 ML PEN SC SCH (20:46)
[2016-07-11] VITALS (27 sets, daily range): BP systolic 90–163; BP diastolic 41–115; PULSE 84–107; RESP 12–28
[2016-07-11] MEDS: INSULIN ASPART [NOVOLOG] 3 ML PEN SC SCH ×6 (01:14→21:13)
[2016-07-11 06:34] LABS: ADD SCAN DIFF NO
[2016-07-11 06:41] LABS: ABNORMAL IP MESSAGE 1; BASOPHILS % 0.2 % (0.0-2.0); EOSINOPHILS # 0.7 10^3/ul (0.0-0.5); EOSINOPHILS % 3.9 % (0.0-7.0); HEMATOCRIT 31.3 % (37.0-47.0); HEMOGLOBIN 9.5 g/dl (12.0-16.0); LYMPHOCYTES # 3.4 10^3/ul (0.8-2.9); LYMPHOCYTES % 20.3 % (15.0-51.0); MEAN CORPUSCULAR HEMOGLOBIN 27.6 pg (29.0-33.0); MEAN CORPUSCULAR HGB CONC 30.4 g/dl (32.0-37.0); MEAN PLATELET VOLUME 10.6 fl (7.4-10.4); MONOCYTE # 1.7 10^3/ul (0.3-0.9); MONOCYTES % 10.4 % (0.0-11.0); NEUTROPHIL # 10.7 10^3/ul (1.6-7.5); NEUTROPHILS % 64.3 % (39.0-77.0); NUCLEATED RED BLOOD CELLS% 0.1 /100WBC (0.0-0.0); PLATELET COUNT 584 10^3/UL (140-415); RED BLOOD COUNT 3.44 10^6/ul (4.20-5.40); RED CELL DISTRIBUTION WIDTH 21.4 % (11.5-14.5); WHITE BLOOD COUNT 16.7 10^3/ul (4.8-10.8)
[2016-07-11 06:58] LABS: POTASSIUM 4.5 mmol/L (3.5-5.1)
[2016-07-11 07:01] LABS: CALCIUM 9.4 mg/dl (8.4-10.2); CREATININE 0.56 mg/dl (0.44-1.00)
[2016-07-11] MEDS: DOCUSATE SODIUM 100 MG CAP PO SCH (07:45)
[2016-07-11] MEDS: CHLORHEXIDINE GLUCONATE 15 ML UD CUP MM SCH ×2 (08:54→21:10)
[2016-07-11] MEDS: MEROPENEM 500 MG/100 ML (PMX) 100 ML IVPB SCH ×2 (08:54→16:24)
[2016-07-11] MEDS: FERROUS SULFATE 60 MG/ML 5ML CUP GTB SCH ×2 (08:55→21:10)
[2016-07-11] MEDS: MULTIVITAMINS 5 ML CUP GTB SCH (08:55)
[2016-07-11] MEDS: QUETIAPINE 25 MG TAB GTB SCH (08:55)
[2016-07-11] MEDS: ZINC SULFATE 220 MG CAP GTB SCH (08:55)
[2016-07-11] MEDS: ASCORBIC ACID 500 MG TAB GTB SCH (08:55)
[2016-07-11] MEDS: clonAZEPAM 0.5 MG TAB GTB SCH ×3 (08:56→21:11)
[2016-07-11] MEDS: VALSARTAN 80 MG TAB GTB SCH (08:56)
[2016-07-11] MEDS: LANSOPRAZOLE 30 MG CAP GTB SCH (08:56)
[2016-07-11] MEDS: APIXABAN 5 MG TABLET GTB SCH ×2 (08:56→21:11)
[2016-07-11] MEDS: COLISTIMETHATE (25 MG/ML INHAL SYG) NEB SCH ×2 (09:40→19:39)
--- NOTE | 2016-07-11 09:41 | CONS ---
Date/Time of Note Date/Time of Note DATE: 07/11/16 TIME: 09:40 Consult Date/Type/Reason Admit Date/Time Jul 06, 2016 at 22:42 Initial Consult Date 07/07/16 Type of Consultation: Pulmonary/critical care Subjective Remains agitated on mechanical ventilation No significant changes overnight Tolerating tube feeding Currently she remains hemodynamically stable Objective Vital Signs Date Time Temp Pulse Resp B/P Pulse Ox O2 Delivery O2 Flow Rate FiO2 07/11/16 08:00 105 07/11/16 07:47 20 97 30 07/11/16 06:00 98.8 119/71 Mechanical Ventilator 07/07/16 10:00 10.0 Intake and Output 07/10/16 07/10/16 07/11/16 15:00 23:00 07:00 Intake Total 640 ml 623.333 ml 430 ml Output Total 255 ml 290 ml 180 ml Balance 385 ml 333.333 ml 250 ml Exam PHYSICAL EXAMINATION GENERAL: Elderly lady on mechanical ventilation appears comfortable at rest VITAL SIGNS: see below. HEENT: Pupils equal, round, and reactive to light. Tracheostomy site clean and intact. CARDIAC: S1, S2, 2 systolic ejection murmur CHEST: Diminished air entry bilaterally. ABDOMEN: Mildly distended. No bowel sounds. EXTREMITIES: No cyanosis, clubbing edema +2 NEUROLOGIC: Hemiplegia Results/Medications Result Diagram: 07/11/16 0555 07/11/16 0555 Results 24 hrs Laboratory Tests Test 07/10/16 12:34 07/10/16 16:45 07/10/16 20:43 07/10/16 23:17 Bedside Glucose 159 138 163 184 Test 07/11/16 01:09 07/11/16 04:42 07/11/16 05:55 07/11/16 08:53 Bedside Glucose 169 160 172 White Blood Count 16.7 H Red Blood Count 3.44 L Hemoglobin 9.5 L Hematocrit 31.3 L Mean Corpuscular Volume 91.0 Mean Corpuscular Hemoglobin 27.6 L Mean Corpuscular Hemoglobin Concent 30.4 L Red Cell Distribution Width 21.4 H Platelet Count 584 H Mean Platelet Volume 10.6 H Neutrophils % 64.3 Lymphocytes % 20.3 Monocytes % 10.4 Eosinophils % 3.9 Basophils % 0.2 Nucleated Red Blood Cells % 0.1 H Neutrophils # 10.7 H Lymphocytes # 3.4 H Monocytes # 1.7 H Eosinophils # 0.7 H Basophils # 0.0 Nucleated Red Blood Cells # 0.0 Sodium Level 137 Potassium Level 4.5 Chloride Level 101 Carbon Dioxide Level 31 Anion Gap 10 Blood Urea Nitrogen 26 H Creatinine 0.56 Glucose Level 162 Calcium Level 9.4 Medications Current Medications Acetaminophen (Tylenol Tab) 650 mg Q6 PRN GTB PAIN Last administered on 00:28; Admin Dose 650 MG; Start 07/07/16 at 12:00 Apixaban (Eliquis) 5 mg BID GTB Last administered on 07/11/16 08:56; Admin Dose 5 MG; Start 07/07/16 at 21:00 Bisacodyl (Dulcolax Supp) 10 mg PRN [place] ; Start 07/07/16 at 12:00 Carvedilol (Coreg) 3.125 mg BID GTB Last administered on 07/11/16 08:56; Admin Dose 3.125 MG; Start 07/07/16 at 21:00 Chlorhexidine Gluconate (Peridex) 15 ml Q12 MM Last administered on 07/11/16 08 :54; Admin Dose 15 ML; Start 07/07/16 at 21:00 Clonazepam (Klonopin) 0.5 mg TID GTB Last administered on 07/11/16 08:56; Admin Dose 0.5 MG; Start 07/07/16 at 13:00 Docusate Sodium (Colace) 100 mg DAILY PO Last administered on 07/10/16 08:17; Admin Dose 100 MG; Start 07/08/16 at 09:00 Fentanyl (Duragesic 50 Mcg/Hr Patch) 1 patch Q72H TRANSDERM Last administered on 07/08/16 14:12; Admin Dose 1 PATCH; Start 07/08/16 at 12:00 Ferrous Sulfate (Feosol Liquid Cup) 330 mg BID GTB Last administered on 08:55; Admin Dose 330 MG; Start 07/07/16 at 21:00 Insulin Glargine (Lantus) 10 unit QHS SC Last administered on 07/10/16 20:46; Admin Dose 10 UNIT; Start 07/07/16 at 21:00 Lansoprazole (Prevacid) 30 mg DAILY GTB Last administered on 07/11/16 08:56; Admin Dose 30 MG; Start 07/08/16 at 09:00 Levalbuterol (Xopenex Neb) 0.63 mg Q6H PRN NEB WHEEZING AND SOB Last administered on 07/09/16 21:52; Admin Dose 0.63 MG; Start 07/07/16 at 12:00 Magnesium Hydroxide (Milk Of Mag) 30 ml DAILY PRN GTB CONSTIPATION; Start 07/07 at 12:00 Metoclopramide HCl (Reglan) 10 mg Q6 PRN GTB NAUSEA AND/OR VOMITING; Start at 17:00 Sodium Biphosphate/ Sodium Phosphate (Fleet Enema) 135 ml PRN PRN [place] severe constipation; Start 07/07/16 at 17:00 Quetiapine Fumarate (Seroquel) 12.5 mg DAILY GTB Last administered on 07/11/16 08:55; Admin Dose 12.5 MG; Start 07/08/16 at 09:00 Valsartan (Diovan) 80 mg DAILY GTB Last administered on 07/11/16 08:56; Admin Dose 80 MG; Start 07/08/16 at 09:00 Zinc Sulfate (Zinc Sulfate) 220 mg DAILY GTB Last administered on 07/11/16 08: 55; Admin Dose 220 MG; Start 07/08/16 at 09:00 Multivitamins (Thera-Plus) 5 ml DAILY GTB Last administered on 07/11/16 08:55; Admin Dose 5 ML; Start 07/08/16 at 09:00 Insulin Aspart (Novolog Insulin Pen) NOVOLOG *MILD* ALGORI... Q4 SC Last administered on 07/11/16 09:09; Admin Dose 1 UNIT; Start 07/07/16 at 17:00 Ascorbic Acid (Vitamin C) 500 mg DAILY GTB Last administered on 07/11/16 08:55 ; Admin Dose 500 MG; Start 07/08/16 at 09:00 Miscellaneous Information 1 ea NOTE XX ; Start 07/07/16 at 17:30 Glucose (Glutose) 15 gm Q15M PRN PO DECREASED GLUCOSE; Start 07/07/16 at 17:30 Glucose (Glutose) 22.5 gm Q15M PRN PO DECREASED GLUCOSE; Start 07/07/16 at 17: 30 Dextrose (D50w Syringe) 25 ml Q15M PRN IV DECREASED GLUCOSE; Start 07/07/16 at 17:30 Dextrose (D50w Syringe) 50 ml Q15M PRN IV DECREASED GLUCOSE; Start 07/07/16 at 17:30 Glucagon (Glucagen) 1 mg Q15M PRN IM DECREASED GLUCOSE; Start 07/07/16 at 17:30 Glucose 15 gm 15 gm Q15M PRN BUCCAL DECREASED GLUCOSE; Start 07/07/16 at 17:30 Meropenem 100 ml @ 200 mls/hr Q8H IVPB Last administered on 07/11/16 08:54; Admin Dose 200 MLS/HR; Start 07/08/16 at 16:00 Vancomycin HCl/ Sodium Chloride (Vancocin/NS) 250 ml @ 83.333 mls/ hr Q24H IVPB Last administered on 07/10/16 16:42; Admin Dose 83.333 MLS/HR; Start at 17:00 Miscellaneous Information (*Rx Drug Level Order Reminder*) VANCOMYCIN TROUGH 07/11 AT 1600 ONCE ONCE XX ; Start 07/11/16 at 16:00; Stop 07/11/16 at 16:01 Sodium Hypochlorite (Dakin'S (1/4 Strength)) 1 applic QHS IRR ; Start 07/11/16 at 21:00 Assessment/Plan Chief Complaint/Hosp Course Assessment 1. Vent dependent respiratory failure 2. History of CVA with hemiplegia 3. History of encephalopathy chronic secondary to above 4. Leukocytosis possible pneumonia healthcare associated 5. Anemia evidence of iron deficiency on iron panel 6. History of dysphagia with G-tube 7. History of atrial fibrillation Plan 1. Monitor H&H 2. Continue proton pump inhibitor 3. Continue mechanical ventilation 4. Antibiotics per infectious diseases adjusted for cultures 5. Continue tube feeding as tolerated 6. DVT and GI prophylaxis Disposition Stable for transfer to telemetry Consider addressing CODE STATUS is overall prognosis is poor Problems: JORDON MONSON MD, [facility] Jul 11, 2016 09:41
--- NOTE | 2016-07-11 13:49 | PN ---
Date/Time of Note Date/Time of Note DATE: 07/11/16 TIME: 13:41 Assessment/Plan VTE Prophylaxis VTE Prophylaxis Intervention: SCD's Lines/Catheters IV Catheter Type (from [facility]): Saline [employer] Central line still needed: Yes Urinary Cath still in place: Yes Reason Cath still needed: urinary retention Assessment/Plan Chief Complaint/Hosp Course ASSESSMENT AND PLAN: 1. Acute on chronic respiratory failure secondary to pneumonia. Dr. Mcbride is following in pulmonology consultation. Continue ventilator support and bronchodilators. 2. Sepsis, resolving. continue broad-spectrum antibiotics. Dr. Hernadez is following in infectious disease consultation. 3. Acute anemia, with a drop in hemoglobin to 6.9. Status post blood transfusion. Dr. Dowd is following in gastroenterology consultation, stool for obese negative. Dr. Storey is asked to see patient in hematology consultation. 4. 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 Dr. Sanchez is following in podiatry consultation 5. History of CVA with left-sided hemiplegia. 6. Cardiomyopathy, with an ejection fraction of 45%. 7. Diastolic dysfunction congestive heart failure. 8. Chronic pain syndrome. 9. Ventilator-dependent respiratory failure with tracheostomy. 10. Dysphagia with G-tube placement. 11. Multiple wounds present on admission. Continue Prevacid for deep venous thrombosis prophylaxis. Further recommendations based on clinical course. Plan of care discussed with Dr. Suarez. Problems: Subjective 24 Hr Interval Summary Free Text/Dictation Patient's continues on vent support, low-grade fever, tolerates a G-tube feeding well per RN, no nausea vomiting. Exam/Review of Systems Vital Signs Vitals Vital Signs Date Time Temp Pulse Resp B/P Pulse Ox O2 Delivery O2 Flow Rate FiO2 07/11/16 12:00 99.4 103 27 105/83 98 Mechanical Ventilator 07/11/16 11:10 30 07/07/16 10:00 10.0 Intake and Output 07/10/16 07/10/16 07/11/16 15:00 23:00 07:00 Intake Total 640 ml 623.333 ml 430 ml Output Total 255 ml 290 ml 180 ml Balance 385 ml 333.333 ml 250 ml Exam PHYSICAL ASSESSMENT: GENERAL: Well-developed, obese female, currently is awake, alert, on ventilator support via tracheostomy. HEENT: Head is atraumatic, normocephalic. Pupils are equal and reactive to light and accommodation. Oral mucosa is pink and moist. NECK: Supple. There is a tracheostomy at the base of the neck, with no bleeding. CHEST: Slightly diminished at the bases bilaterally. No wheezing, rhonchi or rales noted. CARDIOVASCULAR: The patient is slightly tachycardic. Normal S1, S2. No murmurs, gallops, clicks or rubs noted. ABDOMEN: Protuberant, soft, nondistended, nontender. Bowel sounds present. There is no guarding, no rebound tenderness. G-tube with an intact stoma. GENITOURINARY: The patient has a Rivera catheter with yellow urine. EXTREMITIES: Patient has multiple necrotic wounds of the left lower extremity, including heel and toes. Also including the left calf, with diminished pulse. The patient has multiple sores, including the buttocks. NEUROLOGIC: Patient is awake, alert, moving right upper and lower extremities. Left-sided hemiplegia. Results Result Diagram: 07/11/16 0555 07/11/16 0555 Results 24 hrs Laboratory Tests Test 07/10/16 16:45 07/10/16 20:43 07/10/16 23:17 07/11/16 01:09 Bedside Glucose 138 163 184 169 Test 07/11/16 04:42 07/11/16 05:55 07/11/16 08:53 07/11/16 13:10 Bedside Glucose 160 172 174 White Blood Count 16.7 H Red Blood Count 3.44 L Hemoglobin 9.5 L Hematocrit 31.3 L Mean Corpuscular Volume 91.0 Mean Corpuscular Hemoglobin 27.6 L Mean Corpuscular Hemoglobin Concent 30.4 L Red Cell Distribution Width 21.4 H Platelet Count 584 H Mean Platelet Volume 10.6 H Neutrophils % 64.3 Lymphocytes % 20.3 Monocytes % 10.4 Eosinophils % 3.9 Basophils % 0.2 Nucleated Red Blood Cells % 0.1 H Neutrophils # 10.7 H Lymphocytes # 3.4 H Monocytes # 1.7 H Eosinophils # 0.7 H Basophils # 0.0 Nucleated Red Blood Cells # 0.0 Sodium Level 137 Potassium Level 4.5 Chloride Level 101 Carbon Dioxide Level 31 Anion Gap 10 Blood Urea Nitrogen 26 H Creatinine 0.56 Glucose Level 162 Calcium Level 9.4 Medications Medications Current Medications Acetaminophen (Tylenol Tab) 650 mg Q6 PRN GTB PAIN Last administered on 00:28; Admin Dose 650 MG; Start 07/07/16 at 12:00 Apixaban (Eliquis) 5 mg BID GTB Last administered on 07/11/16 08:56; Admin Dose 5 MG; Start 07/07/16 at 21:00 Bisacodyl (Dulcolax Supp) 10 mg PRN [place] ; Start 07/07/16 at 12:00 Carvedilol (Coreg) 3.125 mg BID GTB Last administered on 07/11/16 08:56; Admin Dose 3.125 MG; Start 07/07/16 at 21:00 Chlorhexidine Gluconate (Peridex) 15 ml Q12 MM Last administered on 07/11/16 08 :54; Admin Dose 15 ML; Start 07/07/16 at 21:00 Clonazepam (Klonopin) 0.5 mg TID GTB Last administered on 07/11/16 13:12; Admin Dose 0.5 MG; Start 07/07/16 at 13:00 Docusate Sodium (Colace) 100 mg DAILY PO Last administered on 07/10/16 08:17; Admin Dose 100 MG; Start 07/08/16 at 09:00 Fentanyl (Duragesic 50 Mcg/Hr Patch) 1 patch Q72H TRANSDERM Last administered on 07/08/16 14:12; Admin Dose 1 PATCH; Start 07/08/16 at 12:00 Ferrous Sulfate (Feosol Liquid Cup) 330 mg BID GTB Last administered on 08:55; Admin Dose 330 MG; Start 07/07/16 at 21:00 Insulin Glargine (Lantus) 10 unit QHS SC Last administered on 07/10/16 20:46; Admin Dose 10 UNIT; Start 07/07/16 at 21:00 Lansoprazole (Prevacid) 30 mg DAILY GTB Last administered on 07/11/16 08:56; Admin Dose 30 MG; Start 07/08/16 at 09:00 Levalbuterol (Xopenex Neb) 0.63 mg Q6H PRN NEB WHEEZING AND SOB Last administered on 07/09/16 21:52; Admin Dose 0.63 MG; Start 07/07/16 at 12:00 Magnesium Hydroxide (Milk Of Mag) 30 ml DAILY PRN GTB CONSTIPATION; Start 07/07 at 12:00 Metoclopramide HCl (Reglan) 10 mg Q6 PRN GTB NAUSEA AND/OR VOMITING; Start at 17:00 Sodium Biphosphate/ Sodium Phosphate (Fleet Enema) 135 ml PRN PRN [place] severe constipation; Start 07/07/16 at 17:00 Quetiapine Fumarate (Seroquel) 12.5 mg DAILY GTB Last administered on 07/11/16 08:55; Admin Dose 12.5 MG; Start 07/08/16 at 09:00 Valsartan (Diovan) 80 mg DAILY GTB Last administered on 07/11/16 08:56; Admin Dose 80 MG; Start 07/08/16 at 09:00 Zinc Sulfate (Zinc Sulfate) 220 mg DAILY GTB Last administered on 07/11/16 08: 55; Admin Dose 220 MG; Start 07/08/16 at 09:00 Multivitamins (Thera-Plus) 5 ml DAILY GTB Last administered on 07/11/16 08:55; Admin Dose 5 ML; Start 07/08/16 at 09:00 Insulin Aspart (Novolog Insulin Pen) NOVOLOG *MILD* ALGORI... Q4 SC Last administered on 07/11/16 13:20; Admin Dose 1 UNIT; Start 07/07/16 at 17:00 Ascorbic Acid (Vitamin C) 500 mg DAILY GTB Last administered on 07/11/16 08:55 ; Admin Dose 500 MG; Start 07/08/16 at 09:00 Miscellaneous Information 1 ea NOTE XX ; Start 07/07/16 at 17:30 Glucose (Glutose) 15 gm Q15M PRN PO DECREASED GLUCOSE; Start 07/07/16 at 17:30 Glucose (Glutose) 22.5 gm Q15M PRN PO DECREASED GLUCOSE; Start 07/07/16 at 17: 30 Dextrose (D50w Syringe) 25 ml Q15M PRN IV DECREASED GLUCOSE; Start 07/07/16 at 17:30 Dextrose (D50w Syringe) 50 ml Q15M PRN IV DECREASED GLUCOSE; Start 07/07/16 at 17:30 Glucagon (Glucagen) 1 mg Q15M PRN IM DECREASED GLUCOSE; Start 07/07/16 at 17:30 Glucose 15 gm 15 gm Q15M PRN BUCCAL DECREASED GLUCOSE; Start 07/07/16 at 17:30 Meropenem 100 ml @ 200 mls/hr Q8H IVPB Last administered on 07/11/16 08:54; Admin Dose 200 MLS/HR; Start 07/08/16 at 16:00 Vancomycin HCl/ Sodium Chloride (Vancocin/NS) 250 ml @ 83.333 mls/ hr Q24H IVPB Last administered on 07/10/16 16:42; Admin Dose 83.333 MLS/HR; Start at 17:00 Miscellaneous Information (*Rx Drug Level Order Reminder*) VANCOMYCIN TROUGH 07/11 AT 1600 ONCE ONCE XX ; Start 07/11/16 at 16:00; Stop 07/11/16 at 16:01 Sodium Hypochlorite (Dakin'S (1/4 Strength)) 1 applic QHS IRR ; Start 07/11/16 at 21:00 DELIO GUILLERMO Jul 11, 2016 13:49
[2016-07-11] MEDS: FENTAnyl PATCH 50 MCG/HR TRANSDERM SCH (14:20)
--- NOTE | 2016-07-11 14:35 | PN ---
DATE: 07/11/2016 INFECTIOUS DISEASE PROGRESS NOTE SUBJECTIVE: No events overnight. The patient is lying comfortably in bed. VITAL SIGNS: T-max 101 last, T-current 100.1, pulse 96, respirations 12, blood pressure 90/80, satu ration 98 on 30 FIO2. LABORATORY DATA: WBC 16.7, H and H 9.5 and 31.3, platelets 584, no shift, no bands. BUN 25, creati nine 0.56. MICROBIOLOGY: Sputum culture on admission grew Serratia, Proteus mirabilis, and Pseudomonas aerugin chase. Left lower extremity wound culture growing gram-negative rods. INDWELLINGS: Trach, PEG, Rivera. ANTIMICROBIALS: 1. Colistin inhalation. 2. IV vancomycin. 3. Meropenem. PHYSICAL EXAMINATION: GENERAL: This is a chronically ill-appearing, elderly woman who is lying comfortably in bed. HEENT: Head atraumatic, normocephalic. Sclerae anicteric. Buccal mucosa dry. NECK: Supple. Tracheostomy present. CHEST: Rise symmetrical. Breath sounds diminished to bases. HEART: S1, S2. ABDOMEN: Soft, bowel sounds present. EXTREMITIES: Left lower extremity dressing intact. ASSESSMENT: 1. Sepsis. 2. Left lower extremity gangrene with wound culture growing gram-negative rods. 3. Severe peripheral arterial disease, not a candidate for revascularization procedure. 4. Acute anemia. 5. Chronic encephalopathy. 6. Chronic respiratory failure. 7. Diabetes. PLAN: The patient remains hemodynamically stable. Continue to spike low-grade fevers. Wound cultu res are pending. Continue present care, antibiotics. Dictated By: JEFF SERNA [employer] Conf#: [id number] DID#: [id number]
[2016-07-11] MEDS: VANCOMYCIN 1.25 GM in SOD CHLORIDE 0.9% 250 ML IVPB SCH (17:52)
--- NOTE | 2016-07-11 18:58 | CONS ---
Date/Time of Note Date/Time of Note DATE: 07/11/16 TIME: 18:58 Assessment/Plan Assessment/Plan Additional Assessment/Plan IMPRESSION: 1. Sepsis, most probably from pneumonia and urinary tract infection. 2. Severe anemia. No evidence of acute gastrointestinal bleeding. 3. Left lower extremity cellulitis, chronic wound with left foot gangrene. 4. Peripheral vascular disease. 5. Dysphagia, status post percutaneous endoscopic gastrostomy. 6. Cerebrovascular accident. 7. Encephalopathy. 8. Osteoarthritis. 9. Vent dependent respiratory failure. 10. Cardiomyopathy with ejection fraction of 45%. Plan Patient reticulocyte count is poor. His B12 folic acid and ferritin within normal limit. His stool for occult blood was negative. We might be dealing with myelodysplastic syndrome. Patient needs bone marrow biopsy. Consultation Date/Type/Reason Admit Date/Time Jul 06, 2016 at 22:42 Initial Consult Date 07/07/16 Type of Consultation: Pulmonary/critical care 24 HR Interval Summary Subjective hx not possible: pt non-verbal, pt critical Constitutional: no complaints Exam/Review of Systems Vital Signs Vitals Vital Signs Date Time Temp Pulse Resp B/P Pulse Ox O2 Delivery O2 Flow Rate FiO2 07/11/16 18:00 92 16 126/48 99 Mechanical Ventilator 07/11/16 17:24 30 07/11/16 16:00 99.0 07/07/16 10:00 10.0 Intake and Output 07/10/16 07/10/16 07/11/16 15:00 23:00 07:00 Intake Total 640 ml 623.333 ml 540 ml Output Total 255 ml 290 ml 180 ml Balance 385 ml 333.333 ml 360 ml Exam Constitutional: alert, oriented, well developed Psych: nl mood/affect, no complaints Head: atraumatic, normocephalic Eyes: EOMI, PERRL, nl conjunctiva, nl lids, nl sclera ENMT: nl external ears & nose, nl lips & teeth, nl nasal mucosa & septum Neck: non-tender, supple Respiratory: clear to auscultation, normal air movement Cardiovascular: nl pulses, regular rate and rhythm Gastrointestinal: nl liver, spleen, non-tender, soft Musculoskeletal: nl extremities to inspection, nl gait and stance Extremities: normal pulses Neurological: PLASTIC EYE TECHNICIAN II-XII intact, nl mental status, nl speech, nl strength Skin: nl turgor, No rash or lesions Lymph: nl lymph nodes Results Result Diagram: 07/11/16 0555 07/11/16 0555 Results 24 hrs Laboratory Tests Test 07/10/16 20:43 07/10/16 23:17 07/11/16 01:09 07/11/16 04:42 Bedside Glucose 163 184 169 160 Test 07/11/16 05:55 07/11/16 08:53 07/11/16 13:10 07/11/16 16:40 White Blood Count 16.7 H Red Blood Count 3.44 L Hemoglobin 9.5 L Hematocrit 31.3 L Mean Corpuscular Volume 91.0 Mean Corpuscular Hemoglobin 27.6 L Mean Corpuscular Hemoglobin Concent 30.4 L Red Cell Distribution Width 21.4 H Platelet Count 584 H Mean Platelet Volume 10.6 H Neutrophils % 64.3 Lymphocytes % 20.3 Monocytes % 10.4 Eosinophils % 3.9 Basophils % 0.2 Nucleated Red Blood Cells % 0.1 H Neutrophils # 10.7 H Lymphocytes # 3.4 H Monocytes # 1.7 H Eosinophils # 0.7 H Basophils # 0.0 Nucleated Red Blood Cells # 0.0 Sodium Level 137 Potassium Level 4.5 Chloride Level 101 Carbon Dioxide Level 31 Anion Gap 10 Blood Urea Nitrogen 26 H Creatinine 0.56 Glucose Level 162 Calcium Level 9.4 Bedside Glucose 172 174 Vancomycin Level Trough 6.8 L Test 07/11/16 17:42 Bedside Glucose 147 Medications Medications Current Medications Acetaminophen (Tylenol Tab) 650 mg Q6 PRN GTB PAIN Last administered on 00:28; Admin Dose 650 MG; Start 07/07/16 at 12:00 Apixaban (Eliquis) 5 mg BID GTB Last administered on 07/11/16 08:56; Admin Dose 5 MG; Start 07/07/16 at 21:00 Bisacodyl (Dulcolax Supp) 10 mg PRN [place] ; Start 07/07/16 at 12:00 Carvedilol (Coreg) 3.125 mg BID GTB Last administered on 07/11/16 08:56; Admin Dose 3.125 MG; Start 07/07/16 at 21:00 Chlorhexidine Gluconate (Peridex) 15 ml Q12 MM Last administered on 07/11/16 08 :54; Admin Dose 15 ML; Start 07/07/16 at 21:00 Clonazepam (Klonopin) 0.5 mg TID GTB Last administered on 07/11/16 13:12; Admin Dose 0.5 MG; Start 07/07/16 at 13:00 Docusate Sodium (Colace) 100 mg DAILY PO Last administered on 07/10/16 08:17; Admin Dose 100 MG; Start 07/08/16 at 09:00 Fentanyl (Duragesic 50 Mcg/Hr Patch) 1 patch Q72H TRANSDERM Last administered on 07/11/16 14:20; Admin Dose 1 PATCH; Start 07/08/16 at 12:00 Ferrous Sulfate (Feosol Liquid Cup) 330 mg BID GTB Last administered on 08:55; Admin Dose 330 MG; Start 07/07/16 at 21:00 Insulin Glargine (Lantus) 10 unit QHS SC Last administered on 07/10/16 20:46; Admin Dose 10 UNIT; Start 07/07/16 at 21:00 Lansoprazole (Prevacid) 30 mg DAILY GTB Last administered on 07/11/16 08:56; Admin Dose 30 MG; Start 07/08/16 at 09:00 Levalbuterol (Xopenex Neb) 0.63 mg Q6H PRN NEB WHEEZING AND SOB Last administered on 07/09/16 21:52; Admin Dose 0.63 MG; Start 07/07/16 at 12:00 Magnesium Hydroxide (Milk Of Mag) 30 ml DAILY PRN GTB CONSTIPATION; Start 07/07 at 12:00 Metoclopramide HCl (Reglan) 10 mg Q6 PRN GTB NAUSEA AND/OR VOMITING; Start at 17:00 Sodium Biphosphate/ Sodium Phosphate (Fleet Enema) 135 ml PRN PRN [place] severe constipation; Start 07/07/16 at 17:00 Quetiapine Fumarate (Seroquel) 12.5 mg DAILY GTB Last administered on 07/11/16 08:55; Admin Dose 12.5 MG; Start 07/08/16 at 09:00 Valsartan (Diovan) 80 mg DAILY GTB Last administered on 07/11/16 08:56; Admin Dose 80 MG; Start 07/08/16 at 09:00 Zinc Sulfate (Zinc Sulfate) 220 mg DAILY GTB Last administered on 07/11/16 08: 55; Admin Dose 220 MG; Start 07/08/16 at 09:00 Multivitamins (Thera-Plus) 5 ml DAILY GTB Last administered on 07/11/16 08:55; Admin Dose 5 ML; Start 07/08/16 at 09:00 Insulin Aspart (Novolog Insulin Pen) NOVOLOG *MILD* ALGORI... Q4 SC Last administered on 07/11/16 17:51; Admin Dose 1 UNIT; Start 07/07/16 at 17:00 Ascorbic Acid (Vitamin C) 500 mg DAILY GTB Last administered on 07/11/16 08:55 ; Admin Dose 500 MG; Start 07/08/16 at 09:00 Miscellaneous Information 1 ea NOTE XX ; Start 07/07/16 at 17:30 Glucose (Glutose) 15 gm Q15M PRN PO DECREASED GLUCOSE; Start 07/07/16 at 17:30 Glucose (Glutose) 22.5 gm Q15M PRN PO DECREASED GLUCOSE; Start 07/07/16 at 17: 30 Dextrose (D50w Syringe) 25 ml Q15M PRN IV DECREASED GLUCOSE; Start 07/07/16 at 17:30 Dextrose (D50w Syringe) 50 ml Q15M PRN IV DECREASED GLUCOSE; Start 07/07/16 at 17:30 Glucagon (Glucagen) 1 mg Q15M PRN IM DECREASED GLUCOSE; Start 07/07/16 at 17:30 Glucose 15 gm 15 gm Q15M PRN BUCCAL DECREASED GLUCOSE; Start 07/07/16 at 17:30 Meropenem 100 ml @ 200 mls/hr Q8H IVPB Last administered on 07/11/16 16:24; Admin Dose 200 MLS/HR; Start 07/08/16 at 16:00 Vancomycin HCl/ Sodium Chloride (Vancocin/NS) 250 ml @ 83.333 mls/ hr Q24H IVPB Last administered on 07/11/16 17:52; Admin Dose 83.333 MLS/HR; Start at 17:00; Stop 07/11/16 at 19:00 Sodium Hypochlorite 1 applic 1 applic QHS IRR ; Start 07/11/16 at 21:00 Vancomycin HCl/ Sodium Chloride (Vancocin/NS) 150 ml @ 75 mls/hr Q12H IVPB ; Start 07/12/16 at 06:00 INES TORRE MD Jul 11, 2016 18:58
[2016-07-11] MEDS: SODIUM HYPOCHLORITE 0.125% 473 ML BTL IRR SCH (21:11)
[2016-07-11] MEDS: INSULIN GLARGINE [LANtus] 3 ML PEN SC SCH (21:14)
[2016-07-12] VITALS (32 sets, daily range): BP systolic 112–151; BP diastolic 53–75; PULSE 85–102; RESP 2–30
[2016-07-12] MEDS: MEROPENEM 500 MG/100 ML (PMX) 100 ML IVPB SCH ×2 (01:02→08:37)
[2016-07-12] MEDS: INSULIN ASPART [NOVOLOG] 3 ML PEN SC SCH ×6 (03:33→20:26)
[2016-07-12] MEDS ORDERED: VANCOMYCIN 750 MG in SOD CHLORIDE 0.9% 150 ML IVPB SCH (06:00)
[2016-07-12] MEDS: ACETAMINOPHEN 325 MG TAB GTB PRN (06:19)
[2016-07-12 06:30] LABS: ADD SCAN DIFF NO
[2016-07-12 06:36] LABS: ABNORMAL IP MESSAGE 1; BASOPHIL # 0.1 10^3/ul (0.0-0.1); BASOPHILS % 0.3 % (0.0-2.0); EOSINOPHILS # 0.6 10^3/ul (0.0-0.5); EOSINOPHILS % 3.4 % (0.0-7.0); HEMATOCRIT 31.4 % (37.0-47.0); HEMOGLOBIN 9.3 g/dl (12.0-16.0); LYMPHOCYTES # 3.6 10^3/ul (0.8-2.9); LYMPHOCYTES % 20.4 % (15.0-51.0); MEAN CORPUSCULAR HEMOGLOBIN 27.3 pg (29.0-33.0); MEAN CORPUSCULAR HGB CONC 29.6 g/dl (32.0-37.0); MEAN CORPUSCULAR VOLUME 92.1 fl (82.0-101.0); MEAN PLATELET VOLUME 11.2 fl (7.4-10.4); MONOCYTE # 1.8 10^3/ul (0.3-0.9); MONOCYTES % 10.1 % (0.0-11.0); NEUTROPHIL # 11.4 10^3/ul (1.6-7.5); NEUTROPHILS % 64.9 % (39.0-77.0); NUCLEATED RED BLOOD CELLS% 0.1 /100WBC (0.0-0.0); PLATELET COUNT 502 10^3/UL (140-415); RED BLOOD COUNT 3.41 10^6/ul (4.20-5.40); RED CELL DISTRIBUTION WIDTH 21.3 % (11.5-14.5)
[2016-07-12 06:57] LABS: POTASSIUM 4.4 mmol/L (3.5-5.1)
[2016-07-12 06:59] LABS: CREATININE 0.52 mg/dl (0.44-1.00)
[2016-07-12 07:00] LABS: CALCIUM 9.4 mg/dl (8.4-10.2); PHOSPHORUS 4.5 mg/dl (2.5-4.9)
[2016-07-12 07:01] LABS: MAGNESIUM 2.2 mg/dl (1.7-2.5)
[2016-07-12] MEDS: VALSARTAN 80 MG TAB GTB SCH (08:43)
[2016-07-12] MEDS: FERROUS SULFATE 60 MG/ML 5ML CUP GTB SCH ×2 (08:43→20:16)
[2016-07-12] MEDS: APIXABAN 5 MG TABLET GTB SCH ×2 (08:43→20:17)
[2016-07-12] MEDS: clonAZEPAM 0.5 MG TAB GTB SCH ×3 (08:44→20:16)
[2016-07-12] MEDS: QUETIAPINE 25 MG TAB GTB SCH (08:44)
[2016-07-12] MEDS: LANSOPRAZOLE 30 MG CAP GTB SCH (08:44)
[2016-07-12] MEDS: CHLORHEXIDINE GLUCONATE 15 ML UD CUP MM SCH ×2 (08:45→20:16)
[2016-07-12] MEDS: ASCORBIC ACID 500 MG TAB GTB SCH (08:45)
[2016-07-12] MEDS: MULTIVITAMINS 5 ML CUP GTB SCH (08:45)
[2016-07-12] MEDS: DOCUSATE SODIUM 100 MG CAP PO SCH (08:45)
[2016-07-12] MEDS: ZINC SULFATE 220 MG CAP GTB SCH (08:45)
[2016-07-12] MEDS: COLISTIMETHATE (25 MG/ML INHAL SYG) NEB SCH ×2 (09:07→20:47)
[2016-07-12] MEDS: DOCUSATE SODIUM 10 MG/ML (10ML CUP) GTB SCH (10:00)
--- NOTE | 2016-07-12 12:53 | PN ---
DATE: 07/12/2016 PULMONARY PROGRESS NOTE SUBJECTIVE: Ms. Barrera's condition remains unchanged. The patient remains barely responsive; however, has remained hemodynamically stable. PHYSICAL EXAMINATION: GENERAL: Elderly obese lady, morbidly obese on ventilator via tracheostomy. VITAL SIGNS: Temperature 97.8 degrees Fahrenheit, respiratory rate is 18 to 20 per minute, heart rate 68 per minute, blood pressure is 130/72, O2 saturation 97 % on current ventilator settings. HEENT AND NECK: Supple neck. Tracheostomy in place with clean insertion site. Pupils are small bilaterally. The patient has multiple missing teeth. No thyromegaly. No neck masses, no neck bruits. CHEST: Diminished, but clear breath sounds bilaterally. HEART: S1, S2 audible, no murmurs, irregular rhythm. ABDOMEN: Soft, protuberant. Bowel sounds audible. G-tube in place. EXTREMITIES: Left foot is in a surgical dressing. Pulses are not palpable in the lower extremities: There is trace edema involving the right lower extremity. ' CENTRAL NERVOUS SYSTEM: The patient does not follow any commands. VENTILATOR SETTINGS: AC of 16, tidal volume 500, PEEP of 5, 30% FIO2. ASSESSMENT: 1. The patient admitted for sepsis. 2. History of lower extremity gangrene. 3. Morbid obesity. 4. Chronic respiratory failure. 5. Advanced dementia. RECOMMENDATIONS: Continue current treatment, antibiotics and other supportive measures. Prognosis remains poor. Dictated By: STEVE MOREAU/DENNIS Conf#: [id number] DID#: [id number] MTDD
[2016-07-12] MEDS ORDERED: AMIKACIN IV PER PHARMACY XX SCH (13:30)
--- NOTE | 2016-07-12 13:35 | PN ---
DATE: 07/12/2016 SUBJECTIVE: No events overnight. The patient was transferred to telemetry, lying comfortably in be d, still with low-grade fevers. VITAL SIGNS: T-max 100.4. LABORATORIES: WBC today 17.5, platelets 5412, no shift, no bands. BUN 25, creatinine 0.52. MICROBIOLOGY: Wound culture grew Pseudomonas aeruginosa, Providencia stuartii, Enterococcus species . INDWELLINGS: Trach, PEG, Rivera. ANTIMICROBIALS: The patient is on: 1. Vancomycin. 2. Colistin inhalation. 3. Meropenem. PHYSICAL EXAMINATION: GENERAL: This is a chronically ill-appearing, elderly woman who is in no distress. HEENT: Head atraumatic, normocephalic. Sclerae anicteric. Buccal mucosa dry. NECK: Supple. Tracheostomy present. CHEST: Rise symmetrical. Breath sounds diminished to bases. HEART: S1, S2. ABDOMEN: Soft. Bowel tones present. EXTREMITIES: Left lower extremity dressing intact. ASSESSMENT: 1. Persistent leukocytosis, rule out myelodysplasia. 2. Left foot gangrene with open wound culture growing multi-drug resistant organisms. 3. Chronic respiratory failure. 4. Dysphagia. 5. Chronic encephalopathy. 6. Severe peripheral arterial and vascular disease, not a candidate for revascularization procedure per previous admission vascular note. 7. Diabetes. PLAN: We are going to change antibiotics to Zyvox and amikacin to cover the organisms that she is g rowing in her wound. Continue Colistin inhalation. Continue management as per primary team and con sultants. The patient is DNR status. Dictated By: JEFF SERNA SATELLITE DISH TECHNICIAN for [employer]/NTS Conf#: [id number] DID#: [id number]
--- NOTE | 2016-07-12 15:40 | CONS ---
Date/Time of Note Date/Time of Note DATE: 07/12/16 TIME: 14:54 Assessment/Plan Assessment/Plan Chief Complaint/Hosp Course 66 yo anemia in the setting of leukocytosis and thrombocytosis. Pt is septic and has multiple sources of infection decubitus ulcers and eft foot gangrene with open wound culture growing multi-drug resistant organisms. It is likely that patient's anemia is secondary to chronic inflammation. Still given the persistent leukocytosis and thrombocytosis despite broad spectrum antibiotics, it is necessary to rule out a myeloproliferative disorder. # Anemia -pt does have mild iron deficiency anemia as evidenced by the iron saturation of 8%. pt also has a component of anemia from chronic inflammation evidenced by low TIBC and high ferritin. They epo level of just 32.5 is low and if the Hg dropped below 8, I would consider starting procrit 10,000 units q week -will start IV iron Ferrlecit at this time as well -normal LDH makes hemolysis unlikely -given the borderline Vitamin b12 and folate will check methylmalonic acid level and homocysteine level to see if patient would benefit from Vitamin b12 or folate supplementation #Leukocytosis -likely reactive -will review peripheral smear -will check flow cytometry / NONI 2 mutation analysis and BCR ABL to evaluate for an underlying myeloproliferative disorder #Thrombocytosis -likely reactive -will review peripheral smear -will check flow cytometry / NONI 2 mutation analysis and BCR ABL to evaluate for an underlying myeloproliferative disorder -will start ASA 81 as high platelet count can increase chance of thrombocytosis Approximately 40 min were spent at patient's bedside and in coordination of her care Problems: (1) Leukocytosis Status: Acute (2) Thrombocytosis Status: Acute (3) Anemia Qualifiers: Consultation Date/Type/Reason Admit Date/Time Jul 06, 2016 at 22:42 Date of Consultation: Jul 12, 2016 Type of Consultation: Hematology Reason for Consultation anemia Referring Provider: JOSR LORENZO MD Hx of Present Illness 66-year-old female with multiple medical problems including h/o hemorrhagic stroke s/p craniotomy chronic left-sided deficits who is now with chronic respiratory failure and ventilator-dependancy. At the senior living facility she had apneic episode and reportedly the patient turned blue and was in severe respiratory distress. Intial labs also noted the patient to be anemic with a Hg 8.1 which initially dropped to 6.8. Pt had 2 units of blood transfusion and her Hg has remains stable at greater than 9. The patient also has a persistent leukocytosis and thrombocytosis with WBC ranging from 15K to 18K and platelets in the 500's. Pt is currently being treated for a UTI. She is now being treated for sepsis and is currently on Zyvox and amikacin to cover the organisms growing in her wound. Despite antibiotics her WBC count has not come down, Subjective hx not possible: pt non-verbal Constitutional: no complaints Psychological: nl mood/affect, no complaints Past Medical History hypertension diabetes atrial fibrillation PE, status post IVC filter placement cardiomyopathy, status post right MCA stroke with hemorrhagic conversion, status post craniotomy with chronic left-sided deficits chronic respiratory failure, ventilator-dependent. LLE ischemia Past Surgical History Status post gastric stapling, status post carpal tunnel syndrome surgery, status post back surgery with chronic low back pain, status post bilateral total knee replacements, status post tracheostomy and G-tube placement, status post attempt for left iliac artery stent placement; however, was impossible due to chronic occlusion, per evaluation by Dr. Olmedo. Past Surgical Hx: other Family History Significant Family History: no pertinent family hx Social History Alcohol Use: none Smoking Status: Unknown if ever smoked Drug Use: none Exam/Review of Systems Vital Signs Vitals Vital Signs Date Time Temp Pulse Resp B/P Pulse Ox O2 Delivery O2 Flow Rate FiO2 07/12/16 13:25 93 07/12/16 13:05 29 96 30 07/12/16 08:24 100.2 125/57 07/12/16 06:11 Mechanical Ventilator Intake and Output 07/11/16 07/11/16 07/12/16 15:00 23:00 07:00 Intake Total 826.67 ml 515 ml 100 ml Output Total 620 ml 185 ml Balance 206.67 ml 330 ml 100 ml Exam Constitutional: non-verbal Psych: confusion Head: atraumatic, normocephalic Eyes: nl conjunctiva ENMT: nl external ears & nose Neck: other (tracheostomy in place) Respiratory: clear to auscultation, normal air movement Cardiovascular: regular rate and rhythm Gastrointestinal: soft Extremities: other (Patient has multiple necrotic wounds of the left lower extremity, including heel and toes. Also including the left calf, with diminished pulse. The patient has multiple sores, including the buttocks.) Results Result Diagram: 07/12/16 0525 07/12/16 0525 Results 24 hrs Laboratory Tests Test 07/11/16 16:40 07/11/16 17:42 07/11/16 21:10 07/12/16 02:50 Vancomycin Level Trough 6.8 L Bedside Glucose 147 184 164 Test 07/12/16 05:25 07/12/16 05:50 07/12/16 08:47 07/12/16 11:39 White Blood Count 17.5 H Red Blood Count 3.41 L Hemoglobin 9.3 L Hematocrit 31.4 L Mean Corpuscular Volume 92.1 Mean Corpuscular Hemoglobin 27.3 L Mean Corpuscular Hemoglobin Concent 29.6 L Red Cell Distribution Width 21.3 H Platelet Count 502 H Mean Platelet Volume 11.2 H Neutrophils % 64.9 Lymphocytes % 20.4 Monocytes % 10.1 Eosinophils % 3.4 Basophils % 0.3 Nucleated Red Blood Cells % 0.1 H Neutrophils # 11.4 H Lymphocytes # 3.6 H Monocytes # 1.8 H Eosinophils # 0.6 H Basophils # 0.1 Nucleated Red Blood Cells # 0.0 Sodium Level 140 Potassium Level 4.4 Chloride Level 98 Carbon Dioxide Level 30 Anion Gap 16 Blood Urea Nitrogen 25 H Creatinine 0.52 Glucose Level 165 Calcium Level 9.4 Phosphorus Level 4.5 Magnesium Level 2.2 Bedside Glucose 180 165 151 Medications Medications Current Medications Acetaminophen (Tylenol Tab) 650 mg Q6 PRN GTB PAIN Last administered on 06:19; Admin Dose 650 MG; Start 07/07/16 at 12:00 Apixaban (Eliquis) 5 mg BID GTB Last administered on 07/12/16 08:43; Admin Dose 5 MG; Start 07/07/16 at 21:00 Bisacodyl (Dulcolax Supp) 10 mg PRN [place] ; Start 07/07/16 at 12:00 Carvedilol (Coreg) 3.125 mg BID GTB Last administered on 07/12/16 08:42; Admin Dose 3.125 MG; Start 07/07/16 at 21:00 Chlorhexidine Gluconate (Peridex) 15 ml Q12 MM Last administered on 07/12/16 08 :45; Admin Dose 15 ML; Start 07/07/16 at 21:00 Clonazepam (Klonopin) 0.5 mg TID GTB Last administered on 07/12/16 13:53; Admin Dose 0.5 MG; Start 07/07/16 at 13:00 Fentanyl (Duragesic 50 Mcg/Hr Patch) 1 patch Q72H TRANSDERM Last administered on 07/11/16 14:20; Admin Dose 1 PATCH; Start 07/08/16 at 12:00 Ferrous Sulfate (Feosol Liquid Cup) 330 mg BID GTB Last administered on 08:43; Admin Dose 330 MG; Start 07/07/16 at 21:00 Insulin Glargine (Lantus) 10 unit QHS SC Last administered on 07/11/16 21:14; Admin Dose 10 UNIT; Start 07/07/16 at 21:00 Lansoprazole (Prevacid) 30 mg DAILY GTB Last administered on 07/12/16 08:44; Admin Dose 30 MG; Start 07/08/16 at 09:00 Levalbuterol (Xopenex Neb) 0.63 mg Q6H PRN NEB WHEEZING AND SOB Last administered on 07/09/16 21:52; Admin Dose 0.63 MG; Start 07/07/16 at 12:00 Magnesium Hydroxide (Milk Of Mag) 30 ml DAILY PRN GTB CONSTIPATION; Start 07/07 at 12:00 Metoclopramide HCl (Reglan) 10 mg Q6 PRN GTB NAUSEA AND/OR VOMITING; Start at 17:00 Sodium Biphosphate/ Sodium Phosphate (Fleet Enema) 135 ml PRN PRN [place] severe constipation; Start 07/07/16 at 17:00 Quetiapine Fumarate (Seroquel) 12.5 mg DAILY GTB Last administered on 07/12/16 08:44; Admin Dose 12.5 MG; Start 07/08/16 at 09:00 Valsartan (Diovan) 80 mg DAILY GTB Last administered on 07/12/16 08:43; Admin Dose 80 MG; Start 07/08/16 at 09:00 Zinc Sulfate (Zinc Sulfate) 220 mg DAILY GTB Last administered on 07/12/16 08: 45; Admin Dose 220 MG; Start 07/08/16 at 09:00 Multivitamins (Thera-Plus) 5 ml DAILY GTB Last administered on 07/12/16 08:45; Admin Dose 5 ML; Start 07/08/16 at 09:00 Insulin Aspart (Novolog Insulin Pen) NOVOLOG *MILD* ALGORI... Q4 SC Last administered on 07/12/16 13:54; Admin Dose 1 UNIT; Start 07/07/16 at 17:00 Ascorbic Acid (Vitamin C) 500 mg DAILY GTB Last administered on 07/12/16 08:45 ; Admin Dose 500 MG; Start 07/08/16 at 09:00 Miscellaneous Information 1 ea NOTE XX ; Start 07/07/16 at 17:30 Glucose (Glutose) 15 gm Q15M PRN PO DECREASED GLUCOSE; Start 07/07/16 at 17:30 Glucose (Glutose) 22.5 gm Q15M PRN PO DECREASED GLUCOSE; Start 07/07/16 at 17: 30 Dextrose (D50w Syringe) 25 ml Q15M PRN IV DECREASED GLUCOSE; Start 07/07/16 at 17:30 Dextrose (D50w Syringe) 50 ml Q15M PRN IV DECREASED GLUCOSE; Start 07/07/16 at 17:30 Glucagon (Glucagen) 1 mg Q15M PRN IM DECREASED GLUCOSE; Start 07/07/16 at 17:30 Glucose (Glutose) 15 gm Q15M PRN BUCCAL DECREASED GLUCOSE; Start 07/07/16 at 17 :30 Sodium Hypochlorite (Dakin'S (1/4 Strength)) 1 applic QHS IRR Last administered on 07/11/16 21:11; Admin Dose 1 APPLIC; Start 07/11/16 at 21:00 Docusate Sodium (Colace Liquid Cup) 100 mg DAILY GTB ; Start 07/12/16 at 10:00 Linezolid (Zyvox) 600 mg BID PO ; Start 07/12/16 at 21:00 Amikacin Sulfate AMIKACIN PER PHARMACY NOTE XX ; Start 07/12/16 at 13:30 Amikacin Sulfate/ Sodium Chloride (Amikacin/NS) 104 ml @ 102 mls/hr Q36H IVPB ; Start 07/12/16 at 16:00 GEOVANI VELA M.D. Jul 12, 2016 15:05
[2016-07-12] MEDS ORDERED: AMIKACIN 1,000 MG in SOD CHLORIDE 0.9% 100 ML IVPB SCH (15:45)
--- NOTE | 2016-07-12 16:20 | PN ---
Date/Time of Note Date/Time of Note DATE: 07/12/16 TIME: 16:16 Assessment/Plan VTE Prophylaxis VTE Prophylaxis Intervention: SCD's Lines/Catheters IV Catheter [facility]from [facility]): [facility] Urinary Cath still in place: Yes Reason Cath still needed: urinary retention Assessment/Plan Chief Complaint/Hosp Course ASSESSMENT AND PLAN: 1. Acute on chronic respiratory failure secondary to pneumonia. Dr. Mcbride is following in pulmonology consultation. Continue ventilator support and bronchodilators. 2. Sepsis, resolving. continue broad-spectrum antibiotics. Dr. Hernadez is following in infectious disease consultation. 3. Acute anemia, with a drop in hemoglobin to 6.9. Status post blood transfusion. Dr. Dowd is following in gastroenterology consultation, stool for obese negative. Dr. Storey is asked to see patient in hematology consultation. 4. 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 Dr. Sanchez is following in podiatry consultation 5. History of CVA with left-sided hemiplegia. 6. Cardiomyopathy, with an ejection fraction of 45%. 7. Diastolic dysfunction congestive heart failure. 8. Chronic pain syndrome. 9. Ventilator-dependent respiratory failure with tracheostomy. 10. Dysphagia with G-tube placement. 11. Multiple wounds present on admission. Continue Prevacid for deep venous thrombosis prophylaxis. Further recommendations based on clinical course. Plan of care discussed with Dr. Suarez. Problems: Subjective 24 Hr Interval Summary Free Text/Dictation Patient's continues to have low-grade fever, tolerates diet well. Exam/Review of Systems Vital Signs Vitals Vital Signs Date Time Temp Pulse Resp B/P Pulse Ox O2 Delivery O2 Flow Rate FiO2 07/12/16 15:29 99.7 95 18 112/53 95 07/12/16 15:00 30 07/12/16 06:11 Mechanical Ventilator Intake and Output 07/11/16 07/11/16 07/12/16 15:00 23:00 07:00 Intake Total 826.67 ml 515 ml 100 ml Output Total 620 ml 185 ml Balance 206.67 ml 330 ml 100 ml Exam PHYSICAL ASSESSMENT: GENERAL: Well-developed, obese female, currently is awake, alert, on ventilator support via tracheostomy. HEENT: Head is atraumatic, normocephalic. Pupils are equal and reactive to light and accommodation. Oral mucosa is pink and moist. NECK: Supple. There is a tracheostomy at the base of the neck, with no bleeding. CHEST: Slightly diminished at the bases bilaterally. No wheezing, rhonchi or rales noted. CARDIOVASCULAR: The patient is slightly tachycardic. Normal S1, S2. No murmurs, gallops, clicks or rubs noted. ABDOMEN: Protuberant, soft, nondistended, nontender. Bowel sounds present. There is no guarding, no rebound tenderness. G-tube with an intact stoma. GENITOURINARY: The patient has a Rivera catheter with yellow urine. EXTREMITIES: Patient has multiple necrotic wounds of the left lower extremity, including heel and toes. Also including the left calf, with diminished pulse. The patient has multiple sores, including the buttocks. NEUROLOGIC: Patient is awake, alert, moving right upper and lower extremities. Left-sided hemiplegia. Results Result Diagram: 07/12/16 0525 07/12/16 0525 Results 24 hrs Laboratory Tests Test 07/11/16 16:40 07/11/16 17:42 07/11/16 21:10 07/12/16 02:50 Vancomycin Level Trough 6.8 L Bedside Glucose 147 184 164 Test 07/12/16 05:25 07/12/16 05:50 07/12/16 08:47 07/12/16 11:39 White Blood Count 17.5 H Red Blood Count 3.41 L Hemoglobin 9.3 L Hematocrit 31.4 L Mean Corpuscular Volume 92.1 Mean Corpuscular Hemoglobin 27.3 L Mean Corpuscular Hemoglobin Concent 29.6 L Red Cell Distribution Width 21.3 H Platelet Count 502 H Mean Platelet Volume 11.2 H Neutrophils % 64.9 Lymphocytes % 20.4 Monocytes % 10.1 Eosinophils % 3.4 Basophils % 0.3 Nucleated Red Blood Cells % 0.1 H Neutrophils # 11.4 H Lymphocytes # 3.6 H Monocytes # 1.8 H Eosinophils # 0.6 H Basophils # 0.1 Nucleated Red Blood Cells # 0.0 Sodium Level 140 Potassium Level 4.4 Chloride Level 98 Carbon Dioxide Level 30 Anion Gap 16 Blood Urea Nitrogen 25 H Creatinine 0.52 Glucose Level 165 Calcium Level 9.4 Phosphorus Level 4.5 Magnesium Level 2.2 Bedside Glucose 180 165 151 Medications Medications Current Medications Acetaminophen (Tylenol Tab) 650 mg Q6 PRN GTB PAIN Last administered on 06:19; Admin Dose 650 MG; Start 07/07/16 at 12:00 Apixaban (Eliquis) 5 mg BID GTB Last administered on 07/12/16 08:43; Admin Dose 5 MG; Start 07/07/16 at 21:00 Bisacodyl (Dulcolax Supp) 10 mg PRN [place] ; Start 07/07/16 at 12:00 Carvedilol (Coreg) 3.125 mg BID GTB Last administered on 07/12/16 08:42; Admin Dose 3.125 MG; Start 07/07/16 at 21:00 Chlorhexidine Gluconate (Peridex) 15 ml Q12 MM Last administered on 07/12/16 08 :45; Admin Dose 15 ML; Start 07/07/16 at 21:00 Clonazepam (Klonopin) 0.5 mg TID GTB Last administered on 07/12/16 13:53; Admin Dose 0.5 MG; Start 07/07/16 at 13:00 Fentanyl (Duragesic 50 Mcg/Hr Patch) 1 patch Q72H TRANSDERM Last administered on 07/11/16 14:20; Admin Dose 1 PATCH; Start 07/08/16 at 12:00 Ferrous Sulfate (Feosol Liquid Cup) 330 mg BID GTB Last administered on 08:43; Admin Dose 330 MG; Start 07/07/16 at 21:00 Insulin Glargine (Lantus) 10 unit QHS SC Last administered on 07/11/16 21:14; Admin Dose 10 UNIT; Start 07/07/16 at 21:00 Lansoprazole (Prevacid) 30 mg DAILY GTB Last administered on 07/12/16 08:44; Admin Dose 30 MG; Start 07/08/16 at 09:00 Levalbuterol (Xopenex Neb) 0.63 mg Q6H PRN NEB WHEEZING AND SOB Last administered on 07/09/16 21:52; Admin Dose 0.63 MG; Start 07/07/16 at 12:00 Magnesium Hydroxide (Milk Of Mag) 30 ml DAILY PRN GTB CONSTIPATION; Start 07/07 at 12:00 Metoclopramide HCl (Reglan) 10 mg Q6 PRN GTB NAUSEA AND/OR VOMITING; Start at 17:00 Sodium Biphosphate/ Sodium Phosphate (Fleet Enema) 135 ml PRN PRN [place] severe constipation; Start 07/07/16 at 17:00 Quetiapine Fumarate (Seroquel) 12.5 mg DAILY GTB Last administered on 07/12/16 08:44; Admin Dose 12.5 MG; Start 07/08/16 at 09:00 Valsartan (Diovan) 80 mg DAILY GTB Last administered on 07/12/16 08:43; Admin Dose 80 MG; Start 07/08/16 at 09:00 Zinc Sulfate (Zinc Sulfate) 220 mg DAILY GTB Last administered on 07/12/16 08: 45; Admin Dose 220 MG; Start 07/08/16 at 09:00 Multivitamins (Thera-Plus) 5 ml DAILY GTB Last administered on 07/12/16 08:45; Admin Dose 5 ML; Start 07/08/16 at 09:00 Insulin Aspart (Novolog Insulin Pen) NOVOLOG *MILD* ALGORI... Q4 SC Last administered on 07/12/16 13:54; Admin Dose 1 UNIT; Start 07/07/16 at 17:00 Ascorbic Acid (Vitamin C) 500 mg DAILY GTB Last administered on 07/12/16 08:45 ; Admin Dose 500 MG; Start 07/08/16 at 09:00 Miscellaneous Information 1 ea NOTE XX ; Start 07/07/16 at 17:30 Glucose (Glutose) 15 gm Q15M PRN PO DECREASED GLUCOSE; Start 07/07/16 at 17:30 Glucose (Glutose) 22.5 gm Q15M PRN PO DECREASED GLUCOSE; Start 07/07/16 at 17: 30 Dextrose (D50w Syringe) 25 ml Q15M PRN IV DECREASED GLUCOSE; Start 07/07/16 at 17:30 Dextrose (D50w Syringe) 50 ml Q15M PRN IV DECREASED GLUCOSE; Start 07/07/16 at 17:30 Glucagon (Glucagen) 1 mg Q15M PRN IM DECREASED GLUCOSE; Start 07/07/16 at 17:30 Glucose (Glutose) 15 gm Q15M PRN BUCCAL DECREASED GLUCOSE; Start 07/07/16 at 17 :30 Sodium Hypochlorite (Dakin'S (1/4 Strength)) 1 applic QHS IRR Last administered on 07/11/16t 21:11; Admin Dose 1 APPLIC; Start 07/11/16 at 21:00 Docusate Sodium (Colace Liquid Cup) 100 mg DAILY GTB ; Start 07/12/16 at 10:00 Linezolid (Zyvox) 600 mg BID PO ; Start 07/12/16 at 21:00 Amikacin Sulfate AMIKACIN PER PHARMACY NOTE XX ; Start 07/12/16 at 13:30 Amikacin Sulfate/ Sodium Chloride (Amikacin/NS) 104 ml @ 102 mls/hr Q36H IVPB ; Start 07/12/16 at 16:00 DELIO GUILLERMO Jul 12, 2016 16:20
[2016-07-12] MEDS: AMIKACIN 1,000 MG in SOD CHLORIDE 0.9% 100 ML IVPB SCH (17:33)
[2016-07-12 17:48] LABS: WHITE BLOOD COUNT 17.5 10^3/ul (4.8-10.8)
--- NOTE | 2016-07-12 19:09 | CONS ---
Date/Time of Note Date/Time of Note DATE: 07/12/16 TIME: 19:09 Assessment/Plan Assessment/Plan Additional Assessment/Plan IMPRESSION: 1. Sepsis, most probably from pneumonia and urinary tract infection. 2. Severe anemia. No evidence of acute gastrointestinal bleeding. 3. Left lower extremity cellulitis, chronic wound with left foot gangrene. 4. Peripheral vascular disease. 5. Dysphagia, status post percutaneous endoscopic gastrostomy. 6. Cerebrovascular accident. 7. Encephalopathy. 8. Osteoarthritis. 9. Vent dependent respiratory failure. 10. Cardiomyopathy with ejection fraction of 45%. Plan Patient reticulocyte count is poor. His B12 folic acid and ferritin within normal limit. His stool for occult blood was negative. We might be dealing with myelodysplastic syndrome. Hematological workup is in process Consultation Date/Type/Reason Admit Date/Time Jul 06, 2016 at 22:42 Initial Consult Date 07/07/16 Type of Consultation: Hematology Referring Provider: JOSR LORENZO MD 24 HR Interval Summary Subjective hx not possible: pt non-verbal, pt critical Constitutional: no complaints Exam/Review of Systems Vital Signs Vitals Vital Signs Date Time Temp Pulse Resp B/P Pulse Ox O2 Delivery O2 Flow Rate FiO2 07/12/16 18:19 99.5 86 19 128/75 96 07/12/16 17:10 30 07/12/16 06:11 Mechanical Ventilator Intake and Output 07/11/16 07/11/16 07/12/16 15:00 23:00 07:00 Intake Total 826.67 ml 515 ml 100 ml Output Total 620 ml 185 ml Balance 206.67 ml 330 ml 100 ml Exam Constitutional: alert, oriented, well developed Psych: nl mood/affect, no complaints Head: atraumatic, normocephalic Eyes: EOMI, PERRL, nl conjunctiva, nl lids, nl sclera ENMT: nl external ears & nose, nl lips & teeth, nl nasal mucosa & septum Neck: non-tender, supple Respiratory: clear to auscultation, normal air movement Cardiovascular: nl pulses, regular rate and rhythm Gastrointestinal: nl liver, spleen, non-tender, soft Musculoskeletal: nl extremities to inspection, nl gait and stance Extremities: normal pulses Neurological: FITTING ROOM OPERATOR II-XII intact, nl mental status, nl speech, nl strength Skin: nl turgor, No rash or lesions Lymph: nl lymph nodes Results Result Diagram: 4/4/17 0525 07/12/16 0525 Results 24 hrs Laboratory Tests Test 07/11/16 21:10 07/12/16 02:50 07/12/16 05:25 07/12/16 05:50 Bedside Glucose 184 164 180 White Blood Count 17.5 H Red Blood Count 3.41 L Hemoglobin 9.3 L Hematocrit 31.4 L Mean Corpuscular Volume 92.1 Mean Corpuscular Hemoglobin 27.3 L Mean Corpuscular Hemoglobin Concent 29.6 L Red Cell Distribution Width 21.3 H Platelet Count 502 H Mean Platelet Volume 11.2 H Neutrophils % 64.9 Lymphocytes % 20.4 Monocytes % 10.1 Eosinophils % 3.4 Basophils % 0.3 Nucleated Red Blood Cells % 0.1 H Neutrophils # 11.4 H Lymphocytes # 3.6 H Monocytes # 1.8 H Eosinophils # 0.6 H Basophils # 0.1 Nucleated Red Blood Cells # 0.0 Sodium Level 140 Potassium Level 4.4 Chloride Level 98 Carbon Dioxide Level 30 Anion Gap 16 Blood Urea Nitrogen 25 H Creatinine 0.52 Glucose Level 165 Calcium Level 9.4 Phosphorus Level 4.5 Magnesium Level 2.2 Test 07/12/16 08:47 07/12/16 11:39 07/12/16 17:43 Bedside Glucose 165 151 150 Medications Medications Current Medications Acetaminophen (Tylenol Tab) 650 mg Q6 PRN GTB PAIN Last administered on 06:19; Admin Dose 650 MG; Start 07/07/16 at 12:00 Apixaban (Eliquis) 5 mg BID GTB Last administered on 07/12/16 08:43; Admin Dose 5 MG; Start 07/07/16 at 21:00 Bisacodyl (Dulcolax Supp) 10 mg PRN [place] ; Start 07/07/16 at 12:00 Carvedilol (Coreg) 3.125 mg BID GTB Last administered on 07/12/16 08:42; Admin Dose 3.125 MG; Start 07/07/16 at 21:00 Chlorhexidine Gluconate (Peridex) 15 ml Q12 MM Last administered on 07/12/16 08 :45; Admin Dose 15 ML; Start 07/07/16 at 21:00 Clonazepam (Klonopin) 0.5 mg TID GTB Last administered on 07/12/16 13:53; Admin Dose 0.5 MG; Start 07/07/16 at 13:00 Fentanyl (Duragesic 50 Mcg/Hr Patch) 1 patch Q72H TRANSDERM Last administered on 07/11/16 14:20; Admin Dose 1 PATCH; Start 07/08/16 at 12:00 Ferrous Sulfate (Feosol Liquid Cup) 330 mg BID GTB Last administered on 08:43; Admin Dose 330 MG; Start 07/07/16 at 21:00 Insulin Glargine (Lantus) 10 unit QHS SC Last administered on 07/11/16 21:14; Admin Dose 10 UNIT; Start 07/07/16 at 21:00 Lansoprazole (Prevacid) 30 mg DAILY GTB Last administered on 07/12/16 08:44; Admin Dose 30 MG; Start 07/08/16 at 09:00 Levalbuterol (Xopenex Neb) 0.63 mg Q6H PRN NEB WHEEZING AND SOB Last administered on 07/09/16 21:52; Admin Dose 0.63 MG; Start 07/07/16 at 12:00 Magnesium Hydroxide (Milk Of Mag) 30 ml DAILY PRN GTB CONSTIPATION; Start 07/07 at 12:00 Metoclopramide HCl (Reglan) 10 mg Q6 PRN GTB NAUSEA AND/OR VOMITING; Start at 17:00 Sodium Biphosphate/ Sodium Phosphate (Fleet Enema) 135 ml PRN PRN [place] severe constipation; Start 07/07/16 at 17:00 Quetiapine Fumarate (Seroquel) 12.5 mg DAILY GTB Last administered on 07/12/16 08:44; Admin Dose 12.5 MG; Start 07/08/16 at 09:00 Valsartan (Diovan) 80 mg DAILY GTB Last administered on 07/12/16 08:43; Admin Dose 80 MG; Start 07/08/16 at 09:00 Zinc Sulfate (Zinc Sulfate) 220 mg DAILY GTB Last administered on 07/12/16 08: 45; Admin Dose 220 MG; Start 07/08/16 at 09:00 Multivitamins (Thera-Plus) 5 ml DAILY GTB Last administered on 07/12/16 08:45; Admin Dose 5 ML; Start 07/08/16 at 09:00 Insulin Aspart (Novolog Insulin Pen) NOVOLOG *MILD* ALGORI... Q4 SC Last administered on 07/12/16 18:16; Admin Dose 1 UNIT; Start 07/07/16 at 17:00 Ascorbic Acid (Vitamin C) 500 mg DAILY GTB Last administered on 07/12/16 08:45 ; Admin Dose 500 MG; Start 07/08/16 at 09:00 Miscellaneous Information 1 ea NOTE XX ; Start 07/07/16 at 17:30 Glucose (Glutose) 15 gm Q15M PRN PO DECREASED GLUCOSE; Start 07/07/16 at 17:30 Glucose (Glutose) 22.5 gm Q15M PRN PO DECREASED GLUCOSE; Start 07/07/16 at 17: 30 Dextrose (D50w Syringe) 25 ml Q15M PRN IV DECREASED GLUCOSE; Start 07/07/16 at 17:30 Dextrose (D50w Syringe) 50 ml Q15M PRN IV DECREASED GLUCOSE; Start 07/07/16 at 17:30 Glucagon (Glucagen) 1 mg Q15M PRN IM DECREASED GLUCOSE; Start 07/07/16 at 17:30 Glucose (Glutose) 15 gm Q15M PRN BUCCAL DECREASED GLUCOSE; Start 07/07/16 at 17 :30 Sodium Hypochlorite (Dakin'S (1/4 Strength)) 1 applic QHS IRR Last administered on 07/11/16 21:11; Admin Dose 1 APPLIC; Start 07/11/16 at 21:00 Docusate Sodium (Colace Liquid Cup) 100 mg DAILY GTB ; Start 07/12/16 at 10:00 Linezolid (Zyvox) 600 mg BID PO ; Start 07/12/16 at 21:00 Amikacin Sulfate AMIKACIN PER PHARMACY NOTE XX ; Start 07/12/16 at 13:30 Amikacin Sulfate/ Sodium Chloride (Amikacin/NS) 104 ml @ 102 mls/hr Q36H IVPB Last administered on 07/12/16 17:33; Admin Dose 102 MLS/HR; Start 07/12/16 at 16: 00 INES TORRE MD Jul 12, 2016 19:09
[2016-07-12] MEDS: SODIUM HYPOCHLORITE 0.125% 473 ML BTL IRR SCH (20:17)
[2016-07-12] MEDS: HYDROCODONE/APAP (5/325) TAB GTB PRN (20:17)
[2016-07-12] MEDS: ZYVOX 600 MG TAB PO SCH (20:17)
[2016-07-12] MEDS: INSULIN GLARGINE [LANtus] 3 ML PEN SC SCH (20:26)
[2016-07-13] VITALS (38 sets, daily range): BP systolic 105–128; BP diastolic 52–79; PULSE 78–100; RESP 12–23
[2016-07-13] MEDS: HYDROCODONE/APAP (5/325) TAB GTB PRN ×4 (00:20→20:51)
[2016-07-13] MEDS: INSULIN ASPART [NOVOLOG] 3 ML PEN SC SCH ×6 (00:26→21:01)
[2016-07-13] MEDS: CHLORHEXIDINE GLUCONATE 15 ML UD CUP MM SCH ×2 (09:24→20:51)
[2016-07-13] MEDS: ZINC SULFATE 220 MG CAP GTB SCH (09:24)
[2016-07-13] MEDS: MULTIVITAMINS 5 ML CUP GTB SCH (09:24)
[2016-07-13] MEDS: DOCUSATE SODIUM 10 MG/ML (10ML CUP) GTB SCH (09:24)
[2016-07-13] MEDS: FERROUS SULFATE 60 MG/ML 5ML CUP GTB SCH ×2 (09:24→20:51)
[2016-07-13] MEDS: ASCORBIC ACID 500 MG TAB GTB SCH (09:25)
[2016-07-13] MEDS: QUETIAPINE 25 MG TAB GTB SCH (09:25)
[2016-07-13] MEDS: LANSOPRAZOLE 30 MG CAP GTB SCH (09:25)
[2016-07-13] MEDS: VALSARTAN 80 MG TAB GTB SCH (09:27)
[2016-07-13] MEDS: APIXABAN 5 MG TABLET GTB SCH ×2 (09:27→20:51)
[2016-07-13] MEDS: ZYVOX 600 MG TAB PO SCH ×2 (09:27→20:51)
[2016-07-13] MEDS: COLISTIMETHATE (25 MG/ML INHAL SYG) NEB SCH ×2 (09:33→22:09)
[2016-07-13] MEDS: clonAZEPAM 0.5 MG TAB GTB SCH ×3 (09:42→21:05)
--- NOTE | 2016-07-13 11:39 | CONS ---
Date/Time of Note Date/Time of Note DATE: 07/13/16 TIME: 11:37 Consult Date/Type/Reason Admit Date/Time Jul 06, 2016 at 22:42 Initial Consult Date 07/07/16 Type of Consultation: pulmonary Ordering Provider: JOSR LORENZO MD Subjective Patient appears less agitated this morning No respiratory distress Objective Vital Signs Date Time Temp Pulse Resp B/P Pulse Ox O2 Delivery O2 Flow Rate FiO2 07/13/16 10:08 99.7 82 19 128/79 96 07/13/16 09:34 30 07/13/16 06:00 Mechanical Ventilator Intake and Output 07/12/16 07/12/16 07/13/16 15:00 23:00 07:00 Intake Total 330 ml 380 ml 660 ml Output Total 550 ml 500 ml 400 ml Balance -220 ml -120 ml 260 ml Exam PHYSICAL EXAMINATION GENERAL: Elderly lady on mechanical ventilation appears comfortable at rest VITAL SIGNS: see below. HEENT: Pupils equal, round, and reactive to light. Tracheostomy site clean and intact. CARDIAC: S1, S2, 1/6 systolic murmur CHEST: Diminished air entry bilaterally. ABDOMEN: Mildly distended. No bowel sounds. EXTREMITIES: No cyanosis, clubbing edema +1 lower extremity gangrene to her toes left foot NEUROLOGIC: Generalized weakness Results/Medications Result Diagram: 07/12/16 0525 07/12/16 0525 Results 24 hrs Laboratory Tests Test 07/12/16 11:39 07/12/16 17:43 07/12/16 20:24 07/13/16 00:18 Bedside Glucose 151 150 171 192 Test 07/13/16 04:32 07/13/16 09:23 Bedside Glucose 153 182 Medications Current Medications Acetaminophen (Tylenol Tab) 650 mg Q6 PRN GTB PAIN Last administered on 06:19; Admin Dose 650 MG; Start 07/07/16 at 12:00 Apixaban (Eliquis) 5 mg BID GTB Last administered on 07/13/16 09:27; Admin Dose 5 MG; Start 07/07/16 at 21:00 Bisacodyl (Dulcolax Supp) 10 mg PRN [place] ; Start 07/07/16 at 12:00 Carvedilol (Coreg) 3.125 mg BID GTB Last administered on 07/13/16 09:27; Admin Dose 3.125 MG; Start 07/07/16 at 21:00 Chlorhexidine Gluconate (Peridex) 15 ml Q12 MM Last administered on 07/13/16 09 :24; Admin Dose 15 ML; Start 07/07/16 at 21:00 Clonazepam (Klonopin) 0.5 mg TID GTB Last administered on 07/13/16 09:42; Admin Dose 0.5 MG; Start 07/07/16 at 13:00 Fentanyl (Duragesic 50 Mcg/Hr Patch) 1 patch Q72H TRANSDERM Last administered on 07/11/16 14:20; Admin Dose 1 PATCH; Start 07/08/16 at 12:00 Ferrous Sulfate (Feosol Liquid Cup) 330 mg BID GTB Last administered on 09:24; Admin Dose 330 MG; Start 07/07/16 at 21:00 Insulin Glargine (Lantus) 10 unit QHS SC Last administered on 07/12/16 20:26; Admin Dose 10 UNIT; Start 07/07/16 at 21:00 Lansoprazole (Prevacid) 30 mg DAILY GTB Last administered on 07/13/16 09:25; Admin Dose 30 MG; Start 07/08/16 at 09:00 Levalbuterol (Xopenex Neb) 0.63 mg Q6H PRN NEB WHEEZING AND SOB Last administered on 07/09/16 21:52; Admin Dose 0.63 MG; Start 07/07/16 at 12:00 Magnesium Hydroxide (Milk Of Mag) 30 ml DAILY PRN GTB CONSTIPATION; Start 07/07 at 12:00 Metoclopramide HCl (Reglan) 10 mg Q6 PRN GTB NAUSEA AND/OR VOMITING; Start at 17:00 Sodium Biphosphate/ Sodium Phosphate (Fleet Enema) 135 ml PRN PRN [place] severe constipation; Start 07/07/16 at 17:00 Quetiapine Fumarate (Seroquel) 12.5 mg DAILY GTB Last administered on 07/13/16 09:25; Admin Dose 12.5 MG; Start 07/08/16 at 09:00 Valsartan (Diovan) 80 mg DAILY GTB Last administered on 07/13/16 09:27; Admin Dose 80 MG; Start 07/08/16 at 09:00 Zinc Sulfate (Zinc Sulfate) 220 mg DAILY GTB Last administered on 07/13/16 09: 24; Admin Dose 220 MG; Start 07/08/16 at 09:00 Multivitamins (Thera-Plus) 5 ml DAILY GTB Last administered on 07/13/16 09:24; Admin Dose 5 ML; Start 07/08/16 at 09:00 Insulin Aspart (Novolog Insulin Pen) NOVOLOG *MILD* ALGORI... Q4 SC Last administered on 07/13/16 10:06; Admin Dose 2 UNIT; Start 07/07/16 at 17:00 Ascorbic Acid (Vitamin C) 500 mg DAILY GTB Last administered on 07/13/16 09:25 ; Admin Dose 500 MG; Start 07/08/16 at 09:00 Miscellaneous Information 1 ea NOTE XX ; Start 07/07/16 at 17:30 Glucose (Glutose) 15 gm Q15M PRN PO DECREASED GLUCOSE; Start 07/07/16 at 17:30 Glucose (Glutose) 22.5 gm Q15M PRN PO DECREASED GLUCOSE; Start 07/07/16 at 17: 30 Dextrose (D50w Syringe) 25 ml Q15M PRN IV DECREASED GLUCOSE; Start 07/07/16 at 17:30 Dextrose (D50w Syringe) 50 ml Q15M PRN IV DECREASED GLUCOSE; Start 07/07/16 at 17:30 Glucagon (Glucagen) 1 mg Q15M PRN IM DECREASED GLUCOSE; Start 07/07/16 at 17:30 Glucose (Glutose) 15 gm Q15M PRN BUCCAL DECREASED GLUCOSE; Start 07/07/16 at 17 :30 Sodium Hypochlorite (Dakin'S (1/4 Strength)) 1 applic QHS IRR Last administered on 07/12/16 20:17; Admin Dose 1 APPLIC; Start 07/11/16 at 21:00 Docusate Sodium (Colace Liquid Cup) 100 mg DAILY GTB Last administered on 09:24; Admin Dose 100 MG; Start 07/12/16 at 10:00 Linezolid (Zyvox) 600 mg BID PO Last administered on 07/13/16 09:27; Admin Dose 600 MG; Start 07/12/16 at 21:00 Amikacin Sulfate AMIKACIN PER PHARMACY NOTE XX ; Start 07/12/16 at 13:30 Amikacin Sulfate/ Sodium Chloride (Amikacin/NS) 104 ml @ 102 mls/hr Q36H IVPB Last administered on 07/12/16t 17:33; Admin Dose 102 MLS/HR; Start 07/12/16 at 16: 00 Assessment/Plan Chief Complaint/Hosp Course Assessment 1. Vent dependent respiratory failure 2. History of CVA with hemiplegia 3. History of encephalopathy chronic secondary to above 4. Leukocytosis possible pneumonia healthcare associated 5. Anemia evidence of iron deficiency on iron panel 6. History of dysphagia with G-tube 7. History of atrial fibrillation 8. Necrotic toes left lower extremity Plan 1. Monitor H&H 2. Continue proton pump inhibitor 3. Continue mechanical ventilation 4. Antibiotics per infectious diseases adjusted for cultures 5. Continue tube feeding as tolerated 6. DVT and GI prophylaxis Disposition Consider transfer to [place] for continuing care Problems: JORDON MONSON MD, [facility] Jul 13, 2016 11:39
--- NOTE | 2016-07-13 14:08 | CONS ---
Date/Time of Note Date/Time of Note DATE: 07/13/16 TIME: 14:06 Assessment/Plan Assessment/Plan Chief Complaint/Hosp Course 66 yo anemia in the setting of leukocytosis and thrombocytosis. Pt is septic and has multiple sources of infection decubitus ulcers and eft foot gangrene with open wound culture growing multi-drug resistant organisms. It is likely that patient's anemia is secondary to chronic inflammation. Still given the persistent leukocytosis and thrombocytosis despite broad spectrum antibiotics, it is necessary to rule out a myeloproliferative disorder. # Anemia -pt does have mild iron deficiency anemia as evidenced by the iron saturation of 8%. pt also has a component of anemia from chronic inflammation evidenced by low TIBC and high ferritin. They epo level of just 32.5 is low and if the Hg dropped below 8, I would consider starting procrit 10,000 units q week. can hold on this for now as Hg> 9 -continue IV iron Ferrlecit as ordered -normal LDH makes hemolysis unlikely -given the borderline Vitamin b12 and folate will check methylmalonic acid level and homocysteine level to see if patient would benefit from Vitamin b12 or folate supplementation #Leukocytosis -likely reactive -will review peripheral smear -will check flow cytometry / NONI 2 mutation analysis and BCR ABL to evaluate for an underlying myeloproliferative disorder #Thrombocytosis -likely reactive -will review peripheral smear -will check flow cytometry / NONI 2 mutation analysis and BCR ABL to evaluate for an underlying myeloproliferative disorder -will start ASA 81 as high platelet count can increase chance of thrombocytosis Approximately 40 min were spent at patient's bedside and in coordination of her care Problems: Consultation Date/Type/Reason Admit Date/Time Jul 06, 2016 at 22:42 Initial Consult Date 07/12/16 Type of Consultation: Hematology Reason for Consultation anemia Referring Provider: JOSR LORENZO MD 24 HR Interval Summary Free Text/Dictation no acute overnight events Exam/Review of Systems Vital Signs Vitals Vital Signs Date Time Temp Pulse Resp B/P Pulse Ox O2 Delivery O2 Flow Rate FiO2 07/13/16 14:04 98.8 86 19 107/57 96 07/13/16 11:37 30 07/13/16 06:00 Mechanical Ventilator Intake and Output 07/12/16 07/12/16 07/13/16 15:00 23:00 07:00 Intake Total 330 ml 380 ml 660 ml Output Total 550 ml 650 ml 400 ml Balance -220 ml -270 ml 260 ml Exam Constitutional: frail, non-verbal Psych: no complaints Head: atraumatic, normocephalic Eyes: nl conjunctiva ENMT: nl external ears & nose Neck: non-tender, supple Respiratory: clear to auscultation, normal air movement Cardiovascular: regular rate and rhythm Gastrointestinal: soft Musculoskeletal: nl extremities to inspection, nl gait and stance Extremities: normal pulses Results Result Diagram: 07/12/1652407/12/16 0525 Results 24 hrs Laboratory Tests Test 07/12/16 17:43 07/12/16 20:24 07/13/16 00:18 07/13/16 04:32 Bedside Glucose 150 171 192 153 Test 07/13/16 09:23 Bedside Glucose 182 Medications Medications Current Medications Acetaminophen (Tylenol Tab) 650 mg Q6 PRN GTB PAIN Last administered on 06:19; Admin Dose 650 MG; Start 07/07/16 at 12:00 Apixaban (Eliquis) 5 mg BID GTB Last administered on 07/13/16 09:27; Admin Dose 5 MG; Start 07/07/16 at 21:00 Bisacodyl (Dulcolax Supp) 10 mg PRN [place] ; Start 07/07/16 at 12:00 Carvedilol (Coreg) 3.125 mg BID GTB Last administered on 07/13/16 09:27; Admin Dose 3.125 MG; Start 07/07/16 at 21:00 Chlorhexidine Gluconate (Peridex) 15 ml Q12 MM Last administered on 07/13/16 09 :24; Admin Dose 15 ML; Start 07/07/16 at 21:00 Clonazepam (Klonopin) 0.5 mg TID GTB Last administered on 07/13/16 13:53; Admin Dose 0.5 MG; Start 07/07/16 at 13:00 Fentanyl (Duragesic 50 Mcg/Hr Patch) 1 patch Q72H TRANSDERM Last administered on 07/11/16 14:20; Admin Dose 1 PATCH; Start 07/08/16 at 12:00 Ferrous Sulfate (Feosol Liquid Cup) 330 mg BID GTB Last administered on 09:24; Admin Dose 330 MG; Start 07/07/16 at 21:00 Insulin Glargine (Lantus) 10 unit QHS SC Last administered on 07/12/16 20:26; Admin Dose 10 UNIT; Start 07/07/16 at 21:00 Lansoprazole (Prevacid) 30 mg DAILY GTB Last administered on 07/13/16 09:25; Admin Dose 30 MG; Start 07/08/16 at 09:00 Levalbuterol (Xopenex Neb) 0.63 mg Q6H PRN NEB WHEEZING AND SOB Last administered on 07/09/16 21:52; Admin Dose 0.63 MG; Start 07/07/16 at 12:00 Magnesium Hydroxide (Milk Of Mag) 30 ml DAILY PRN GTB CONSTIPATION; Start 07/07 at 12:00 Metoclopramide HCl (Reglan) 10 mg Q6 PRN GTB NAUSEA AND/OR VOMITING; Start at 17:00 Sodium Biphosphate/ Sodium Phosphate (Fleet Enema) 135 ml PRN PRN [place] severe constipation; Start 07/07/16 at 17:00 Quetiapine Fumarate (Seroquel) 12.5 mg DAILY GTB Last administered on 07/13/16 09:25; Admin Dose 12.5 MG; Start 07/08/16 at 09:00 Valsartan (Diovan) 80 mg DAILY GTB Last administered on 07/13/16 09:27; Admin Dose 80 MG; Start 07/08/16 at 09:00 Zinc Sulfate (Zinc Sulfate) 220 mg DAILY GTB Last administered on 07/13/16 09: 24; Admin Dose 220 MG; Start 07/08/16 at 09:00 Multivitamins (Thera-Plus) 5 ml DAILY GTB Last administered on 07/13/16 09:24; Admin Dose 5 ML; Start 07/08/16 at 09:00 Insulin Aspart (Novolog Insulin Pen) NOVOLOG *MILD* ALGORI... Q4 SC Last administered on 07/13/16 14:01; Admin Dose 2 UNIT; Start 07/07/16 at 17:00 Ascorbic Acid (Vitamin C) 500 mg DAILY GTB Last administered on 07/13/16 09:25 ; Admin Dose 500 MG; Start 07/08/16 at 09:00 Miscellaneous Information 1 ea NOTE XX ; Start 07/07/16 at 17:30 Glucose (Glutose) 15 gm Q15M PRN PO DECREASED GLUCOSE; Start 07/07/16 at 17:30 Glucose (Glutose) 22.5 gm Q15M PRN PO DECREASED GLUCOSE; Start 07/07/16 at 17: 30 Dextrose (D50w Syringe) 25 ml Q15M PRN IV DECREASED GLUCOSE; Start 07/07/16 at 17:30 Dextrose (D50w Syringe) 50 ml Q15M PRN IV DECREASED GLUCOSE; Start 07/07/16 at 17:30 Glucagon (Glucagen) 1 mg Q15M PRN IM DECREASED GLUCOSE; Start 07/07/16 at 17:30 Glucose (Glutose) 15 gm Q15M PRN BUCCAL DECREASED GLUCOSE; Start 07/07/16 at 17 :30 Sodium Hypochlorite (Dakin'S (1/4 Strength)) 1 applic QHS IRR Last administered on 07/12/16 20:17; Admin Dose 1 APPLIC; Start 07/11/16 at 21:00 Docusate Sodium (Colace Liquid Cup) 100 mg DAILY GTB Last administered on 09:24; Admin Dose 100 MG; Start 07/12/16 at 10:00 Linezolid (Zyvox) 600 mg BID PO Last administered on 07/13/16 09:27; Admin Dose 600 MG; Start 07/12/16 at 21:00 Amikacin Sulfate AMIKACIN PER PHARMACY NOTE XX ; Start 07/12/16 at 13:30 Amikacin Sulfate/ Sodium Chloride (Amikacin/NS) 104 ml @ 102 mls/hr Q36H IVPB Last administered on 07/12/16 17:33; Admin Dose 102 MLS/HR; Start 07/12/16 at 16: 00 GEOVANI VELA M.D. Jul 13, 2016 14:08
--- NOTE | 2016-07-13 15:35 | CONS ---
Date/Time of Note Date/Time of Note DATE: 07/13/16 TIME: 15:34 Assessment/Plan Assessment/Plan Chief Complaint/Hosp Course SUBJECTIVE: No events overnight. The patient is lying comfortably in bed, still with low-grade fevers. MICROBIOLOGY: Wound culture grew Pseudomonas aeruginosa, Providencia stuartii, VRE INDWELLINGS: Trach, PEG, Rivera. ANTIMICROBIALS: The patient is on: 1. Zyvox 2. Colistin inhalation. 3. Amikacin. PHYSICAL EXAMINATION: GENERAL: This is a chronically ill-appearing, elderly woman who is in no distress. HEENT: Head atraumatic, normocephalic. Sclerae anicteric. Buccal mucosa dry. NECK: Supple. Tracheostomy present. CHEST: Rise symmetrical. Breath sounds diminished to bases. HEART: S1, S2. ABDOMEN: Soft. Bowel tones present. EXTREMITIES: Left lower extremity dressing intact. ASSESSMENT: 1. Persistent leukocytosis, rule out myelodysplasia. 2. Left foot gangrene with open wound culture growing multi-drug resistant organisms. 3. Chronic respiratory failure. 4. Dysphagia. 5. Chronic encephalopathy. 6. Severe peripheral arterial and vascular disease, not a candidate for revascularization procedure per previous admission vascular note. 7. Diabetes. PLAN: Remains unchanged, continue abx, local wound care, management as per primary team and consultants. The patient is DNR status. staff Problems: Consultation Date/Type/Reason Admit Date/Time Jul 06, 2016 at 22:42 Initial Consult Date 07/12/16 Type of Consultation: ID Referring Provider: JOSR LORENZO MD Exam/Review of Systems Vital Signs Vitals Vital Signs Date Time Temp Pulse Resp B/P Pulse Ox O2 Delivery O2 Flow Rate FiO2 07/13/16 14:04 98.8 86 19 107/57 96 07/13/16 14:00 Mechanical Ventilator 07/13/16 13:50 30 Intake and Output 07/12/16 07/12/16 07/13/16 15:00 23:00 07:00 Intake Total 330 ml 380 ml 660 ml Output Total 550 ml 650 ml 400 ml Balance -220 ml -270 ml 260 ml Results Result Diagram: 07/12/16 0525 07/12/16 0525 Results 24 hrs Laboratory Tests Test 07/12/16 17:43 07/12/16 20:24 07/13/16 00:18 07/13/16 04:32 Bedside Glucose 150 171 192 153 Test 07/13/16 09:23 07/13/16 13:55 Bedside Glucose 182 196 Medications Medications Current Medications Acetaminophen (Tylenol Tab) 650 mg Q6 PRN GTB PAIN Last administered on 06:19; Admin Dose 650 MG; Start 07/07/16 at 12:00 Apixaban (Eliquis) 5 mg BID GTB Last administered on 07/13/16 09:27; Admin Dose 5 MG; Start 07/07/16 at 21:00 Bisacodyl (Dulcolax Supp) 10 mg PRN AL ; Start 07/07/16 at 12:00 Carvedilol (Coreg) 3.125 mg BID GTB Last administered on 07/13/16 09:27; Admin Dose 3.125 MG; Start 07/07/16 at 21:00 Chlorhexidine Gluconate (Peridex) 15 ml Q12 MM Last administered on 07/13/16 09 :24; Admin Dose 15 ML; Start 07/07/16 at 21:00 Clonazepam (Klonopin) 0.5 mg TID GTB Last administered on 07/13/16 13:53; Admin Dose 0.5 MG; Start 07/07/16 at 13:00 Fentanyl (Duragesic 50 Mcg/Hr Patch) 1 patch Q72H TRANSDERM Last administered on 07/11/16 14:20; Admin Dose 1 PATCH; Start 07/08/16 at 12:00 Ferrous Sulfate (Feosol Liquid Cup) 330 mg BID GTB Last administered on 09:24; Admin Dose 330 MG; Start 07/07/16 at 21:00 Insulin Glargine (Lantus) 10 unit QHS SC Last administered on 07/12/16 20:26; Admin Dose 10 UNIT; Start 07/07/16 at 21:00 Lansoprazole (Prevacid) 30 mg DAILY GTB Last administered on 07/13/16 09:25; Admin Dose 30 MG; Start 07/08/16 at 09:00 Levalbuterol (Xopenex Neb) 0.63 mg Q6H PRN NEB WHEEZING AND SOB Last administered on 07/09/16 21:52; Admin Dose 0.63 MG; Start 07/07/16 at 12:00 Magnesium Hydroxide (Milk Of Mag) 30 ml DAILY PRN GTB CONSTIPATION; Start 07/07 at 12:00 Metoclopramide HCl (Reglan) 10 mg Q6 PRN GTB NAUSEA AND/OR VOMITING; Start at 17:00 Sodium Biphosphate/ Sodium Phosphate (Fleet Enema) 135 ml PRN PRN [place] severe constipation; Start 07/07/16 at 17:00 Quetiapine Fumarate (Seroquel) 12.5 mg DAILY GTB Last administered on 07/13/16 09:25; Admin Dose 12.5 MG; Start 07/08/16 at 09:00 Valsartan (Diovan) 80 mg DAILY GTB Last administered on 07/13/16 09:27; Admin Dose 80 MG; Start 07/08/16 at 09:00 Zinc Sulfate (Zinc Sulfate) 220 mg DAILY GTB Last administered on 07/13/16 09: 24; Admin Dose 220 MG; Start 07/08/16 at 09:00 Multivitamins (Thera-Plus) 5 ml DAILY GTB Last administered on 07/13/16 09:24; Admin Dose 5 ML; Start 07/08/16 at 09:00 Insulin Aspart (Novolog Insulin Pen) NOVOLOG *MILD* ALGORI... Q4 SC Last administered on 07/13/16 14:01; Admin Dose 2 UNIT; Start 07/07/16 at 17:00 Ascorbic Acid (Vitamin C) 500 mg DAILY GTB Last administered on 07/13/16 09:25 ; Admin Dose 500 MG; Start 07/08/16 at 09:00 Miscellaneous Information 1 ea NOTE XX ; Start 07/07/16 at 17:30 Glucose (Glutose) 15 gm Q15M PRN PO DECREASED GLUCOSE; Start 07/07/16 at 17:30 Glucose (Glutose) 22.5 gm Q15M PRN PO DECREASED GLUCOSE; Start 07/07/16 at 17: 30 Dextrose (D50w Syringe) 25 ml Q15M PRN IV DECREASED GLUCOSE; Start 07/07/16 at 17:30 Dextrose (D50w Syringe) 50 ml Q15M PRN IV DECREASED GLUCOSE; Start 07/07/16 at 17:30 Glucagon (Glucagen) 1 mg Q15M PRN IM DECREASED GLUCOSE; Start 07/07/16 at 17:30 Glucose (Glutose) 15 gm Q15M PRN BUCCAL DECREASED GLUCOSE; Start 07/07/16 at 17 :30 Sodium Hypochlorite (Dakin'S (1/4 Strength)) 1 applic QHS IRR Last administered on 07/12/16 20:17; Admin Dose 1 APPLIC; Start 07/11/16 at 21:00 Docusate Sodium (Colace Liquid Cup) 100 mg DAILY GTB Last administered on 09:24; Admin Dose 100 MG; Start 07/12/16 at 10:00 Linezolid (Zyvox) 600 mg BID PO Last administered on 07/13/16 09:27; Admin Dose 600 MG; Start 07/12/16 at 21:00 Amikacin Sulfate AMIKACIN PER PHARMACY NOTE XX ; Start 07/12/16 at 13:30 Amikacin Sulfate/ Sodium Chloride (Amikacin/NS) 104 ml @ 102 mls/hr Q36H IVPB Last administered on 07/12/16 17:33; Admin Dose 102 MLS/HR; Start 07/12/16 at 16: 00 Silver Sulfadiazine (Thermazene 1% 25 Gm) 1 applic DAILY TOP ; Start 07/14/16 at 09:00 JEFF SERNA NP Jul 13, 2016 15:35
--- NOTE | 2016-07-13 15:50 | PN ---
Date/Time of Note Date/Time of Note DATE: 07/13/16 TIME: 15:48 Assessment/Plan VTE Prophylaxis VTE Prophylaxis Intervention: SCD's Lines/Catheters IV Catheter Type (from Rust): Saline Lock Urinary Cath still in place: Yes Reason Cath still needed: urinary retention Assessment/Plan Chief Complaint/Hosp Course ASSESSMENT AND PLAN: 1. Acute on chronic respiratory failure secondary to pneumonia. Dr. Mcbride is following in pulmonology consultation. Continue ventilator support and bronchodilators. 2. Sepsis, resolving. continue broad-spectrum antibiotics. Dr. Hernadez is following in infectious disease consultation. 3. Acute anemia, with a drop in hemoglobin to 6.9. Status post blood transfusion. Dr. Dowd is following in gastroenterology consultation, stool for OB is negative. Dr. Storey is following patient in hematology consultation. 4. 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 Dr. Sanchez is following in podiatry consultation 5. History of CVA with left-sided hemiplegia. 6. Cardiomyopathy, with an ejection fraction of 45%. 7. Diastolic dysfunction congestive heart failure. 8. Chronic pain syndrome. 9. Ventilator-dependent respiratory failure with tracheostomy. 10. Dysphagia with G-tube placement. 11. Multiple wounds present on admission. Continue Prevacid for deep venous thrombosis prophylaxis. Further recommendations based on clinical course. Plan of care discussed with Dr. Suarez. Problems: Subjective 24 Hr Interval Summary Free Text/Dictation Patient remained afebrile, tolerates G-tube feeding well. Exam/Review of Systems Vital Signs Vitals Vital Signs Date Time Temp Pulse Resp B/P Pulse Ox O2 Delivery O2 Flow Rate FiO2 07/13/16 14:04 98.8 86 19 107/57 96 07/13/16 14:00 Mechanical Ventilator 07/13/16 13:50 30 Intake and Output 07/12/16 07/12/16 07/13/16 15:00 23:00 07:00 Intake Total 330 ml 380 ml 660 ml Output Total 550 ml 650 ml 400 ml Balance -220 ml -270 ml 260 ml Exam PHYSICAL ASSESSMENT: GENERAL: Well-developed, obese female, currently is awake, alert, on ventilator support via tracheostomy. HEENT: Head is atraumatic, normocephalic. Pupils are equal and reactive to light and accommodation. Oral mucosa is pink and moist. NECK: Supple. There is a tracheostomy at the base of the neck, with no bleeding. CHEST: Slightly diminished at the bases bilaterally. No wheezing, rhonchi or rales noted. CARDIOVASCULAR: The patient is slightly tachycardic. Normal S1, S2. No murmurs, gallops, clicks or rubs noted. ABDOMEN: Protuberant, soft, nondistended, nontender. Bowel sounds present. There is no guarding, no rebound tenderness. G-tube with an intact stoma. GENITOURINARY: The patient has a Rivera catheter with yellow urine. EXTREMITIES: Patient has multiple necrotic wounds of the left lower extremity, including heel and toes. Also including the left calf, with diminished pulse. The patient has multiple sores, including the buttocks. NEUROLOGIC: Patient is awake, alert, moving right upper and lower extremities. Left-sided hemiplegia. Results Result Diagram: 07/12/16 0525 07/12/16 0525 Results 24 hrs Laboratory Tests Test 07/12/16 17:43 07/12/16 20:24 07/13/16 00:18 07/13/16 04:32 Bedside Glucose 150 171 192 153 Test 07/13/16 09:23 07/13/16 13:55 Bedside Glucose 182 196 Medications Medications Current Medications Acetaminophen (Tylenol Tab) 650 mg Q6 PRN GTB PAIN Last administered on 06:19; Admin Dose 650 MG; Start 07/07/16 at 12:00 Apixaban (Eliquis) 5 mg BID GTB Last administered on 07/13/16 09:27; Admin Dose 5 MG; Start 07/07/16 at 21:00 Bisacodyl (Dulcolax Supp) 10 mg PRN ME ; Start 07/07/16 at 12:00 Carvedilol (Coreg) 3.125 mg BID GTB Last administered on 07/13/16 09:27; Admin Dose 3.125 MG; Start 07/07/16 at 21:00 Chlorhexidine Gluconate (Peridex) 15 ml Q12 MM Last administered on 07/13/16 09 :24; Admin Dose 15 ML; Start 07/07/16 at 21:00 Clonazepam (Klonopin) 0.5 mg TID GTB Last administered on 07/13/16 13:53; Admin Dose 0.5 MG; Start 07/07/16 at 13:00 Fentanyl (Duragesic 50 Mcg/Hr Patch) 1 patch Q72H TRANSDERM Last administered on 07/11/16 14:20; Admin Dose 1 PATCH; Start 07/08/16 at 12:00 Ferrous Sulfate (Feosol Liquid Cup) 330 mg BID GTB Last administered on 09:24; Admin Dose 330 MG; Start 07/07/16 at 21:00 Insulin Glargine (Lantus) 10 unit QHS SC Last administered on 07/12/16 20:26; Admin Dose 10 UNIT; Start 07/07/16 at 21:00 Lansoprazole (Prevacid) 30 mg DAILY GTB Last administered on 07/13/16 09:25; Admin Dose 30 MG; Start 07/08/16 at 09:00 Levalbuterol (Xopenex Neb) 0.63 mg Q6H PRN NEB WHEEZING AND SOB Last administered on 07/09/16 21:52; Admin Dose 0.63 MG; Start 07/07/16 at 12:00 Magnesium Hydroxide (Milk Of Mag) 30 ml DAILY PRN GTB CONSTIPATION; Start 07/07 at 12:00 Metoclopramide HCl (Reglan) 10 mg Q6 PRN GTB NAUSEA AND/OR VOMITING; Start at 17:00 Sodium Biphosphate/ Sodium Phosphate (Fleet Enema) 135 ml PRN PRN ME severe constipation; Start 07/07/16 at 17:00 Quetiapine Fumarate (Seroquel) 12.5 mg DAILY GTB Last administered on 07/13/16 09:25; Admin Dose 12.5 MG; Start 07/08/16 at 09:00 Valsartan (Diovan) 80 mg DAILY GTB Last administered on 07/13/16 09:27; Admin Dose 80 MG; Start 07/08/16 at 09:00 Zinc Sulfate (Zinc Sulfate) 220 mg DAILY GTB Last administered on 07/13/16 09: 24; Admin Dose 220 MG; Start 07/08/16 at 09:00 Multivitamins (Thera-Plus) 5 ml DAILY GTB Last administered on 07/13/16 09:24; Admin Dose 5 ML; Start 07/08/16 at 09:00 Insulin Aspart (Novolog Insulin Pen) NOVOLOG *MILD* ALGORI... Q4 SC Last administered on 07/13/16 14:01; Admin Dose 2 UNIT; Start 07/07/16 at 17:00 Ascorbic Acid (Vitamin C) 500 mg DAILY GTB Last administered on 07/13/16 09:25 ; Admin Dose 500 MG; Start 07/08/16 at 09:00 Miscellaneous Information 1 ea NOTE XX ; Start 07/07/16 at 17:30 Glucose (Glutose) 15 gm Q15M PRN PO DECREASED GLUCOSE; Start 07/07/16 at 17:30 Glucose (Glutose) 22.5 gm Q15M PRN PO DECREASED GLUCOSE; Start 07/07/16 at 17: 30 Dextrose (D50w Syringe) 25 ml Q15M PRN IV DECREASED GLUCOSE; Start 07/07/16 at 17:30 Dextrose (D50w Syringe) 50 ml Q15M PRN IV DECREASED GLUCOSE; Start 07/07/16 at 17:30 Glucagon (Glucagen) 1 mg Q15M PRN IM DECREASED GLUCOSE; Start 07/07/16 at 17:30 Glucose (Glutose) 15 gm Q15M PRN BUCCAL DECREASED GLUCOSE; Start 07/07/16 at 17 :30 Sodium Hypochlorite (Dakin'S (1/4 Strength)) 1 applic QHS IRR Last administered on 07/12/16 20:17; Admin Dose 1 APPLIC; Start 07/11/16 at 21:00 Docusate Sodium (Colace Liquid Cup) 100 mg DAILY GTB Last administered on 09:24; Admin Dose 100 MG; Start 07/12/16 at 10:00 Linezolid (Zyvox) 600 mg BID PO Last administered on 07/13/16 09:27; Admin Dose 600 MG; Start 07/12/16 at 21:00 Amikacin Sulfate AMIKACIN PER PHARMACY NOTE XX ; Start 07/12/16 at 13:30 Amikacin Sulfate/ Sodium Chloride (Amikacin/NS) 104 ml @ 102 mls/hr Q36H IVPB Last administered on 07/12/16 17:33; Admin Dose 102 MLS/HR; Start 07/12/16 at 16: 00 Silver Sulfadiazine (Thermazene 1% 25 Gm) 1 applic DAILY TOP ; Start 07/14/16 at 09:00 DELIO GUILLERMO Jul 13, 2016 15:50
--- NOTE | 2016-07-13 19:04 | CONS ---
Date/Time of Note Date/Time of Note DATE: 07/13/16 TIME: 19:01 Assessment/Plan Assessment/Plan Additional Assessment/Plan IMPRESSION: 1. Sepsis, most probably from pneumonia and urinary tract infection. 2. Severe anemia. No evidence of acute gastrointestinal bleeding. 3. Left lower extremity cellulitis, chronic wound with left foot gangrene. 4. Peripheral vascular disease. 5. Dysphagia, status post percutaneous endoscopic gastrostomy. 6. Cerebrovascular accident. 7. Encephalopathy. 8. Osteoarthritis. 9. Vent dependent respiratory failure. 10. Cardiomyopathy with ejection fraction of 45%. 11. Peripheral vascular disease Plan Continue Procrit Monitor H&H Continue present care Consultation Date/Type/Reason Admit Date/Time Jul 06, 2016 at 22:42 Initial Consult Date 07/07/16 Type of Consultation: ID Referring Provider: JOSR LORENZO MD 24 HR Interval Summary Free Text/Dictation No GI bleeding, no abdominal pain no nausea no vomiting Exam/Review of Systems Vital Signs Vitals Vital Signs Date Time Temp Pulse Resp B/P Pulse Ox O2 Delivery O2 Flow Rate FiO2 07/13/16 17:45 99 12 97 30 07/13/16 16:17 98.3 105/53 07/13/16 14:00 Mechanical Ventilator Intake and Output 07/12/16 07/12/16 07/13/16 15:00 23:00 07:00 Intake Total 330 ml 380 ml 660 ml Output Total 550 ml 650 ml 400 ml Balance -220 ml -270 ml 260 ml Exam Constitutional: non-verbal Head: atraumatic, normocephalic Neck: non-tender, supple Respiratory: other (Patient is on vent) Cardiovascular: nl pulses, regular rate and rhythm Gastrointestinal: nl liver, spleen, non-tender, other (G-tube is in place no evidence of infection. Tolerating feeding), soft Extremities: other (Gangrene of the left side for fourth toe) Results Result Diagram: 07/12/16 0525 07/12/16 0525 Results 24 hrs Laboratory Tests Test 07/12/16 20:24 07/13/16 00:18 07/13/16 04:32 07/13/16 09:23 Bedside Glucose 171 192 153 182 Test 07/13/16 13:55 07/13/16 17:30 Bedside Glucose 196 150 Medications Medications Current Medications Acetaminophen (Tylenol Tab) 650 mg Q6 PRN GTB PAIN Last administered on 06:19; Admin Dose 650 MG; Start 07/07/16 at 12:00 Apixaban (Eliquis) 5 mg BID GTB Last administered on 07/13/16 09:27; Admin Dose 5 MG; Start 07/07/16 at 21:00 Bisacodyl (Dulcolax Supp) 10 mg PRN AR ; Start 07/07/16 at 12:00 Carvedilol (Coreg) 3.125 mg BID GTB Last administered on 07/13/16 09:27; Admin Dose 3.125 MG; Start 07/07/16 at 21:00 Chlorhexidine Gluconate (Peridex) 15 ml Q12 MM Last administered on 07/13/16 09 :24; Admin Dose 15 ML; Start 07/07/16 at 21:00 Clonazepam (Klonopin) 0.5 mg TID GTB Last administered on 07/13/16 13:53; Admin Dose 0.5 MG; Start 07/07/16 at 13:00 Fentanyl (Duragesic 50 Mcg/Hr Patch) 1 patch Q72H TRANSDERM Last administered on 07/11/16 14:20; Admin Dose 1 PATCH; Start 07/08/16 at 12:00 Ferrous Sulfate (Feosol Liquid Cup) 330 mg BID GTB Last administered on 09:24; Admin Dose 330 MG; Start 07/07/16 at 21:00 Insulin Glargine (Lantus) 10 unit QHS SC Last administered on 07/12/16 20:26; Admin Dose 10 UNIT; Start 07/07/16 at 21:00 Lansoprazole (Prevacid) 30 mg DAILY GTB Last administered on 07/13/16 09:25; Admin Dose 30 MG; Start 07/08/16 at 09:00 Levalbuterol (Xopenex Neb) 0.63 mg Q6H PRN NEB WHEEZING AND SOB Last administered on 07/09/16 21:52; Admin Dose 0.63 MG; Start 07/07/16 at 12:00 Magnesium Hydroxide (Milk Of Mag) 30 ml DAILY PRN GTB CONSTIPATION; Start 07/07 at 12:00 Metoclopramide HCl (Reglan) 10 mg Q6 PRN GTB NAUSEA AND/OR VOMITING; Start at 17:00 Sodium Biphosphate/ Sodium Phosphate (Fleet Enema) 135 ml PRN PRN [place] severe constipation; Start 07/07/16 at 17:00 Quetiapine Fumarate (Seroquel) 12.5 mg DAILY GTB Last administered on 07/13/16 09:25; Admin Dose 12.5 MG; Start 07/08/16 at 09:00 Valsartan (Diovan) 80 mg DAILY GTB Last administered on 07/13/16 09:27; Admin Dose 80 MG; Start 07/08/16 at 09:00 Zinc Sulfate (Zinc Sulfate) 220 mg DAILY GTB Last administered on 07/13/16 09: 24; Admin Dose 220 MG; Start 07/08/16 at 09:00 Multivitamins (Thera-Plus) 5 ml DAILY GTB Last administered on 07/13/16 09:24; Admin Dose 5 ML; Start 07/08/16 at 09:00 Insulin Aspart (Novolog Insulin Pen) NOVOLOG *MILD* ALGORI... Q4 SC Last administered on 07/13/16 17:49; Admin Dose 1 UNIT; Start 07/07/16 at 17:00 Ascorbic Acid (Vitamin C) 500 mg DAILY GTB Last administered on 07/13/16 09:25 ; Admin Dose 500 MG; Start 07/08/16 at 09:00 Miscellaneous Information 1 ea NOTE XX ; Start 07/07/16 at 17:30 Glucose (Glutose) 15 gm Q15M PRN PO DECREASED GLUCOSE; Start 07/07/16 at 17:30 Glucose (Glutose) 22.5 gm Q15M PRN PO DECREASED GLUCOSE; Start 07/07/16 at 17: 30 Dextrose (D50w Syringe) 25 ml Q15M PRN IV DECREASED GLUCOSE; Start 07/07/16 at 17:30 Dextrose (D50w Syringe) 50 ml Q15M PRN IV DECREASED GLUCOSE; Start 07/07/16 at 17:30 Glucagon (Glucagen) 1 mg Q15M PRN IM DECREASED GLUCOSE; Start 07/07/16 at 17:30 Glucose (Glutose) 15 gm Q15M PRN BUCCAL DECREASED GLUCOSE; Start 07/07/16 at 17 :30 Sodium Hypochlorite (Dakin'S (1/4 Strength)) 1 applic QHS IRR Last administered on 07/12/16 20:17; Admin Dose 1 APPLIC; Start 07/11/16 at 21:00 Docusate Sodium (Colace Liquid Cup) 100 mg DAILY GTB Last administered on 09:24; Admin Dose 100 MG; Start 07/12/16 at 10:00 Linezolid (Zyvox) 600 mg BID PO Last administered on 07/13/16 09:27; Admin Dose 600 MG; Start 07/12/16 at 21:00 Amikacin Sulfate AMIKACIN PER PHARMACY NOTE XX ; Start 07/12/16 at 13:30 Amikacin Sulfate/ Sodium Chloride (Amikacin/NS) 104 ml @ 102 mls/hr Q36H IVPB Last administered on 07/12/16 17:33; Admin Dose 102 MLS/HR; Start 07/12/16 at 16: 00 Silver Sulfadiazine (Thermazene 1% 25 Gm) 1 applic DAILY TOP ; Start 07/14/16 at 09:00 INES TORRE MD Jul 13, 2016 19:04
[2016-07-13] MEDS: SODIUM HYPOCHLORITE 0.125% 473 ML BTL IRR SCH (20:52)
[2016-07-13] MEDS: INSULIN GLARGINE [LANtus] 3 ML PEN SC SCH (21:01)
[2016-07-13] MEDS: LEVALBUTEROL (NEB) 0.63 MG/3 ML AMP NEB PRN (22:10)
[2016-07-14] VITALS (32 sets, daily range): BP systolic 111–139; BP diastolic 53–79; PULSE 80–96; RESP 13–26
[2016-07-14] MEDS: INSULIN ASPART [NOVOLOG] 3 ML PEN SC SCH ×5 (01:22→17:20)
[2016-07-14 03:27] LABS: ADD SCAN DIFF NO
[2016-07-14 03:31] LABS: ABNORMAL IP MESSAGE 1; BASOPHILS % 0.2 % (0.0-2.0); EOSINOPHILS # 0.7 10^3/ul (0.0-0.5); EOSINOPHILS % 3.9 % (0.0-7.0); HEMATOCRIT 29.6 % (37.0-47.0); HEMOGLOBIN 8.5 g/dl (12.0-16.0); LYMPHOCYTES # 3.3 10^3/ul (0.8-2.9); LYMPHOCYTES % 19.4 % (15.0-51.0); MEAN CORPUSCULAR HEMOGLOBIN 26.6 pg (29.0-33.0); MEAN CORPUSCULAR HGB CONC 28.7 g/dl (32.0-37.0); MEAN CORPUSCULAR VOLUME 92.5 fl (82.0-101.0); MEAN PLATELET VOLUME 10.7 fl (7.4-10.4); MONOCYTE # 1.1 10^3/ul (0.3-0.9); MONOCYTES % 6.6 % (0.0-11.0); NEUTROPHIL # 11.8 10^3/ul (1.6-7.5); NEUTROPHILS % 69.3 % (39.0-77.0); PLATELET COUNT 565 10^3/UL (140-415); RED CELL DISTRIBUTION WIDTH 20.8 % (11.5-14.5)
[2016-07-14 03:43] LABS: POTASSIUM 4.5 mmol/L (3.5-5.1)
[2016-07-14 03:45] LABS: CREATININE 0.6 mg/dl (0.44-1.00)
[2016-07-14 03:46] LABS: CALCIUM 9.4 mg/dl (8.4-10.2); MAGNESIUM 2.3 mg/dl (1.7-2.5); PHOSPHORUS 5.1 mg/dl (2.5-4.9)
[2016-07-14] MEDS: AMIKACIN 1,000 MG in SOD CHLORIDE 0.9% 100 ML IVPB SCH (04:43)
[2016-07-14] MEDS: HYDROCODONE/APAP (5/325) TAB GTB PRN (04:43)
[2016-07-14] MEDS: VALSARTAN 80 MG TAB GTB SCH (08:55)
[2016-07-14] MEDS: APIXABAN 5 MG TABLET GTB SCH ×2 (08:55→21:05)
[2016-07-14] MEDS: clonAZEPAM 0.5 MG TAB GTB SCH ×3 (08:55→21:04)
[2016-07-14] MEDS: ASCORBIC ACID 500 MG TAB GTB SCH (08:55)
[2016-07-14] MEDS: LANSOPRAZOLE 30 MG CAP GTB SCH (08:55)
[2016-07-14] MEDS: ZINC SULFATE 220 MG CAP GTB SCH (08:56)
[2016-07-14] MEDS: DOCUSATE SODIUM 10 MG/ML (10ML CUP) GTB SCH (08:56)
[2016-07-14] MEDS: MULTIVITAMINS 5 ML CUP GTB SCH (08:56)
[2016-07-14] MEDS: FERROUS SULFATE 60 MG/ML 5ML CUP GTB SCH ×2 (08:56→21:05)
[2016-07-14] MEDS: CHLORHEXIDINE GLUCONATE 15 ML UD CUP MM SCH ×2 (08:56→21:05)
[2016-07-14] MEDS: SILVER SULFADIAZINE 1% 25 GM CR TOP SCH (08:57)
[2016-07-14] MEDS: COLISTIMETHATE (25 MG/ML INHAL SYG) NEB SCH ×2 (10:54→22:46)
--- NOTE | 2016-07-14 11:05 | CONS ---
Date/Time of Note Date/Time of Note DATE: 07/14/16 TIME: 11:02 Assessment/Plan Assessment/Plan Additional Assessment/Plan Ventilator setting; AC of 12, tidal volume 500, PEEP of 5, 30% FiO2. Next Assessment recommend patient; 1. Patient admitted for sepsis. 2. Developing left foot gangrene. 3. Chronic respiratory failure. 4. Underlying morbid obesity. 5. History of anoxic brain injury. Continue current supportive care. Prognosis poor. Consultation Date/Type/Reason Admit Date/Time Jul 06, 2016 at 22:42 Initial Consult Date 07/12/16 Type of Consultation: Pulmonary Referring Provider: JOSR LORENZO MD 24 HR Interval Summary Free Text/Dictation Patient condition remained stable. Remains ventilator dependent. Remains essentially unresponsive to any commands. Surgical; elderly woman, appears quite overweight, on ventilator via tracheostomy. Currently on distress. Awake. Exam/Review of Systems Vital Signs Vitals Vital Signs Date Time Temp Pulse Resp B/P Pulse Ox O2 Delivery O2 Flow Rate FiO2 07/14/16 09:45 88 24 98 30 07/14/16 07:43 98.4 127/69 07/14/16 06:00 Mechanical Ventilator Intake and Output 07/13/16 07/13/16 07/14/16 15:00 23:00 07:00 Intake Total 660 ml Output Total 550 ml Balance 110 ml Exam HEENT examined; supple neck, JVD difficult to see because of short leg The colostomy. PICC line insertion site. No neck masses. No lymphadenopathy. No thyromegaly. Pupils are small bilaterally. Chest examined; diminished but clear breath sounds bilaterally. S1-S2 audible, no murmurs. Regular rhythm. Abdomen examination; soft, G-tube in place. Protuberant. Pulses are audible. No organomegaly. Extremity exam; trace generalized edema. There is gangrene involving the left foot. SUBSTANCE ABUSE THERAPIST exam; patient awake but does not follow any commands spontaneously moves right upper extremity. Results Result Diagram: 07/14/16 0310 07/14/16 0310 Results 24 hrs Laboratory Tests Test 07/13/16 13:55 07/13/16 17:30 07/13/16 20:56 07/14/16 01:11 Bedside Glucose 196 150 152 183 Test 07/14/16 03:10 07/14/16 04:40 07/14/16 07:22 White Blood Count 17.0 H Red Blood Count 3.20 L Hemoglobin 8.5 L Hematocrit 29.6 L Mean Corpuscular Volume 92.5 Mean Corpuscular Hemoglobin 26.6 L Mean Corpuscular Hemoglobin Concent 28.7 L Red Cell Distribution Width 20.8 H Platelet Count 565 H Mean Platelet Volume 10.7 H Neutrophils % 69.3 Lymphocytes % 19.4 Monocytes % 6.6 Eosinophils % 3.9 Basophils % 0.2 Nucleated Red Blood Cells % 0.0 Neutrophils # 11.8 H Lymphocytes # 3.3 H Monocytes # 1.1 H Eosinophils # 0.7 H Basophils # 0.0 Nucleated Red Blood Cells # 0.0 Sodium Level 139 Potassium Level 4.5 Chloride Level 98 Carbon Dioxide Level 32 H Anion Gap 14 Blood Urea Nitrogen 33 H Creatinine 0.60 Glucose Level 182 Calcium Level 9.4 Phosphorus Level 5.1 H Magnesium Level 2.3 Bedside Glucose 177 173 Medications Medications Current Medications Acetaminophen (Tylenol Tab) 650 mg Q6 PRN GTB PAIN Last administered on 06:19; Admin Dose 650 MG; Start 07/07/16 at 12:00 Apixaban (Eliquis) 5 mg BID GTB Last administered on 07/14/16 08:55; Admin Dose 5 MG; Start 07/07/16 at 21:00 Bisacodyl (Dulcolax Supp) 10 mg PRN [place] ; Start 07/07/16 at 12:00 Carvedilol (Coreg) 3.125 mg BID GTB Last administered on 07/14/16 08:56; Admin Dose 3.125 MG; Start 07/07/16 at 21:00 Chlorhexidine Gluconate (Peridex) 15 ml Q12 MM Last administered on 07/14/16 08 :56; Admin Dose 15 ML; Start 07/07/16 at 21:00 Clonazepam (Klonopin) 0.5 mg TID GTB Last administered on 07/14/16 08:55; Admin Dose 0.5 MG; Start 07/07/16 at 13:00 Fentanyl (Duragesic 50 Mcg/Hr Patch) 1 patch Q72H TRANSDERM Last administered on 07/11/16 14:20; Admin Dose 1 PATCH; Start 07/08/16 at 12:00 Ferrous Sulfate (Feosol Liquid Cup) 330 mg BID GTB Last administered on 08:56; Admin Dose 330 MG; Start 07/07/16 at 21:00 Insulin Glargine (Lantus) 10 unit QHS SC Last administered on 07/13/16 21:01; Admin Dose 10 UNIT; Start 07/07/16 at 21:00 Lansoprazole (Prevacid) 30 mg DAILY GTB Last administered on 07/14/16 08:55; Admin Dose 30 MG; Start 07/08/16 at 09:00 Levalbuterol (Xopenex Neb) 0.63 mg Q6H PRN NEB WHEEZING AND SOB Last administered on 07/13/16 22:10; Admin Dose 0.63 MG; Start 07/07/16 at 12:00 Magnesium Hydroxide (Milk Of Mag) 30 ml DAILY PRN GTB CONSTIPATION; Start 07/07 at 12:00 Metoclopramide HCl (Reglan) 10 mg Q6 PRN GTB NAUSEA AND/OR VOMITING; Start at 17:00 Sodium Biphosphate/ Sodium Phosphate (Fleet Enema) 135 ml PRN PRN [place] severe constipation; Start 07/07/16 at 17:00 Quetiapine Fumarate (Seroquel) 12.5 mg DAILY GTB Last administered on 07/13/16 09:25; Admin Dose 12.5 MG; Start 07/08/16 at 09:00 Valsartan (Diovan) 80 mg DAILY GTB Last administered on 07/14/16 08:55; Admin Dose 80 MG; Start 07/08/16 at 09:00 Zinc Sulfate (Zinc Sulfate) 220 mg DAILY GTB Last administered on 07/14/16 08: 56; Admin Dose 220 MG; Start 07/08/16 at 09:00 Multivitamins (Thera-Plus) 5 ml DAILY GTB Last administered on 07/14/16 08:56; Admin Dose 5 ML; Start 07/08/16 at 09:00 Insulin Aspart (Novolog Insulin Pen) NOVOLOG *MILD* ALGORI... Q4 SC Last administered on 07/14/16 08:59; Admin Dose 1 UNIT; Start 07/07/16 at 17:00 Ascorbic Acid (Vitamin C) 500 mg DAILY GTB Last administered on 07/14/16 08:55 ; Admin Dose 500 MG; Start 07/08/16 at 09:00 Miscellaneous Information 1 ea NOTE XX ; Start 07/07/16 at 17:30 Glucose (Glutose) 15 gm Q15M PRN PO DECREASED GLUCOSE; Start 07/07/16 at 17:30 Glucose (Glutose) 22.5 gm Q15M PRN PO DECREASED GLUCOSE; Start 07/07/16 at 17: 30 Dextrose (D50w Syringe) 25 ml Q15M PRN IV DECREASED GLUCOSE; Start 07/07/16 at 17:30 Dextrose (D50w Syringe) 50 ml Q15M PRN IV DECREASED GLUCOSE; Start 07/07/16 at 17:30 Glucagon (Glucagen) 1 mg Q15M PRN IM DECREASED GLUCOSE; Start 07/07/16 at 17:30 Glucose (Glutose) 15 gm Q15M PRN BUCCAL DECREASED GLUCOSE; Start 07/07/16 at 17 :30 Sodium Hypochlorite (Dakin'S (1/4 Strength)) 1 applic QHS IRR Last administered on 07/13/16 20:52; Admin Dose 1 APPLIC; Start 07/11/16 at 21:00 Docusate Sodium (Colace Liquid Cup) 100 mg DAILY GTB Last administered on 08:56; Admin Dose 100 MG; Start 07/12/16 at 10:00 Linezolid (Zyvox) 600 mg BID PO Last administered on 07/13/16 20:51; Admin Dose 600 MG; Start 07/12/16 at 21:00 Amikacin Sulfate AMIKACIN PER PHARMACY NOTE XX ; Start 07/12/16 at 13:30 Amikacin Sulfate/ Sodium Chloride (Amikacin/NS) 104 ml @ 102 mls/hr Q36H IVPB Last administered on 07/14/16 04:43; Admin Dose 102 MLS/HR; Start 07/12/16 at 16: 00 Silver Sulfadiazine (Thermazene 1% 25 Gm) 1 applic DAILY TOP Last administered on 07/14/16 08:57; Admin Dose 1 APPLIC; Start 07/14/16 at 09:00 STEVE JONES Jul 14, 2016 11:05
[2016-07-14] MEDS: FENTAnyl PATCH 50 MCG/HR TRANSDERM SCH (12:00)
[2016-07-14] MEDS: ZYVOX 600 MG TAB PO SCH ×2 (12:24→21:05)
[2016-07-14] MEDS: QUETIAPINE 25 MG TAB GTB SCH (12:24)
--- NOTE | 2016-07-14 14:36 | HP ---
Date/Time of Note Date/Time of Note DATE: 07/07/16 TIME: 11:53 Assessment/Plan VTE Prophylaxis VTE Prophylaxis Intervention: other Assessment/Plan Assessment/Plan -Severe sepsis - id consult- DR Hernadez notified -Vent dependent Respiratoty failure-Chronic respiratory failure - Pulmonary consult- DR Alex notified -Encephalopathy- no acute issues - Dysphagia- sp PEG placement - aspiration precautions -Diabetes Mellitus - Glycemic control - diabetic tube feeding - dietary consult - clinical systems educator consult - Hb AIC am -Hypertension -Hx DVT - SCD for DVT for prophylaxis -CVA -Multiple wounds - dietary consult DW Dr Suarez HPI/ROS Admit Date/Time Admit Date/Time Hx of Present Illness Chief Complaint shortness of breath HPI This is a 65-year-old female with a history of hypertension, diabetes, atrial fibrillation, PE status post IVC filter, cardiomyopathy, right MCA stroke with hemorrhagic conversion, craniotomy, now with chronic left-sided deficits, chronic respiratory failure with a trach on vent, presenting from her shelter facility after an apneic event. She reportedly turned blue. After stimulation she was able to breathe again. The history is otherwise limited as the patient is nonverbal. ROS Limited review of systems as the patient is nonverbal. Medications Home Meds Reported Medications Levalbuterol Hcl* (Levalbuterol Hcl*) 0.63 Mg/3 Ml Vial.neb, 0.63 MG INHALATION Q6H Y for WHEEZING AND SOB, VIAL 07/06/16 Cranberry Extract (Cranberry) 425 Mg Capsule, 425 MG GTB DAILY, CAP 07/06/16 Zinc Sulfate* (Zinc Sulfate*) 220 Mg Tablet, 220 MG GTB DAILY, TAB 07/06/16 Ascorbic Acid* (Vitamin C* Liq) 500 Mg/5 Ml Syrup, 500 MG GTB DAILY, ML 07/06/16 Valsartan* (Diovan*) 80 Mg Tablet, 80 MG GTB DAILY, TAB hold if sbp below 110 hr below 60 07/06/16 Cran/Vitc/Mannose/Inulin/Brom (Uti-Stat Liquid) 3,875 Mg/30 Ml Liquid, 3875 MG GTB BID 07/06/16 Acetaminophen* (Acetaminophen*) 500 MG Extra Strength Tablet, 1000 MG GTB Q6H Y for MODERATE PAIN LEVEL 4-6, TAB 07/06/16 Acetaminophen* (Acetaminophen*) 650 Mg Tablet, 650 MG GTB Q4 Y for MILD PAIN LEVEL 1-3, #30 TAB 07/06/16 Acetaminophen* (Acetaminophen*) 650 Mg Tablet, 650 MG GTB trach change Y for PAIN, #30 TAB give 30 min prior to trach change 07/06/16 NPH, Human Insulin Isophane (Humulin N Kwikpen) 100 Unit/1 Ml Insuln.pen, 66 UNIT SQ Q6, EA 07/06/16 Hydrocodone/Acetaminophen ([place] 5-325 Tablet) 1 Each Tablet, 1 EACH GTB Q4H WHILE AWAKE Y for SEVERE PAIN LEVEL 7-10, TAB 07/06/16 Multivit &Minerals/Ferrous Fum (COMPLETE MULTIVIT-MINERAL LIQ) 9 Mg/15 Ml Liquid , 3 MG GTB DAILY 07/06/16 Magnesium Hydroxide* (Milk Of Magnesia*) 400 Mg/5 Ml Oral.susp, 30 ML GTB DAILY Y for CONSTIPATION, ML 07/06/16 Insulin Glargine* (Lantus*) 100 Unit/Ml Soln, 10 UNIT SC QHS, #1 VIAL 07/06/16 Na Phos,M-B/Na Phos,Di-Ba (ENEMA READY TO USE) 135 Ml Enema, 135 ML RC prn Y for severe constipation, ENEMA 07/06/16 Bisacodyl (Dulcolax) 10 Mg Supp.rect, 10 MG RC prn for CONSTIPATION, SUPP.RECT 07/06/16 Apixaban* (Eliquis*) 5 Mg Tablet, 5 MG GTB BID, TAB 07/06/16 Acidophilus/Pectin, [place] (ACIDOPHILUS-PECTIN CAPTAB) 1 Each Tablet, 1 EACH GTB BID, TAB 07/06/16 Quetiapine Fumarate* (Seroquel*) 25 Mg Tablet, 12.5 MG GTB DAILY, #30 TAB 07/06/16 Docusate Sodium* (Docusate Sodium*) 100 Mg Capsule, 100 MG GTB DAILY, #30 CAP 07/06/16 Carvedilol* (Carvedilol*) 3.125 Mg Tablet, 3.125 MG GTB BID, #60 TAB 07/06/16 Chlorhexidine Gluconate (Peridex) 473 Ml Mouthwash, 15 ML MM Q12, BOTTLE 04/21/16 Metoclopramide* (Reglan*) 10 Mg Tablet, 10 MG GTB Q6 Y for NAUSEA AND/OR VOMITING, TAB 04/21/16 Lansoprazole* (Lansoprazole*) 30 Mg Capsule.dr, 30 MG GTB DAILY, CAP 04/21/16 Glucagon HCl (Glucagon HCl) 1 Mg Vial, 1 MG IJ DAILY Y for LOW GLUCOSE, VIAL 04/21/16 Ferrous Sulfate (Ferrous Sulfate) 300 Mg/5 Ml Liquid, 330 MG GTB BID 04/21/16 Fentanyl Patch* (Duragesic Patch*) 50 Mcg/Hr Transdermal Patch, 1 PATCH TD Q72H , PATCH 04/21/16 Clonazepam* (Clonazepam*) 0.5 Mg Tablet, 0.5 MG GTB TID, TAB 04/21/16 Discontinued Reported Medications Spironolactone* (Spironolactone*) 100 Mg Tablet, 25 MG GTB DAILY, TAB 04/21/16 Quetiapine Fumarate* (Quetiapine Fumarate*) 25 Mg Tablet, 12.5 MG GTB BID, TAB 04/21/16 Hydrocodone/Acetaminophen ([place] 10-325 Tablet) 1 Each Tablet, 1 EACH GTB Q4 Y for PAIN, TAB 04/21/16 Nitroglycerin* (Nitroglycerin* SL) 0.4 Mg Tab.subl, 0.4 MG SL Q5MIN Y for CHEST PAIN, BOTTLE 04/21/16 Multivit &Minerals/Ferrous Fum (MULTIVITAMIN LIQUID) 9 Mg/15 Ml Liquid, 30 ML GTB DAILY 04/21/16 Metformin* (Glucophage*) 500 Mg Tab, 1000 MG GTB BID, #30 TAB 04/21/16 Lorazepam* (Lorazepam*) 1 Mg Tablet, 1 MG GTB Q2HWA Y for ANXIETY, #30 TAB 04/21/16 Lisinopril* (Lisinopril*) 5 Mg Tablet, 5 MG GTB DAILY, #30 TAB HOLD IF SBP<110 OR HR<60 04/21/16 Linagliptin (TRADJENTA) 5 Mg Tablet, 5 MG GTB DAILY, TAB 04/21/16 Lactobacillus Rhamnosus* (Culturelle*) 1 Each Cap.sprink, 1 CAP GTB BID, CAP 04/21/16 Insulin Regular, Human (Humulin R) 100 Unit/1 Ml Vial, 0-12 UNIT IJ BID WITH MEALS, VIAL 04/21/16 Insulin NPH Human Isophane (Humulin N) 100 Unit/1 Ml Vial, 18 UNIT SQ BID, VIAL 04/21/16 Famotidine* (Famotidine*) 20 Mg Tablet, 20 MG GTB BID, #60 TAB 04/21/16 Enoxaparin Sodium* (Lovenox*) 120 Mg/0.8 Ml Disp.syrin, 90 MG SQ BID, SYR 04/21/16 Ipratropium-Albuterol (Ipratropium-Albuterol) 0.5-3 Mg/3 Ml Ampul.neb, 1 VIAL INHALATION Q2HWA Y for WHEEZING AND SOB, #30 VIAL 04/21/16 Docusate Sodium* (Docusate Sodium*) 100 Mg Capsule, 100 MG GTB BID Y for CONSTIPATION, #60 CAP 04/21/16 Clonidine Hcl* (Clonidine Hcl*) 0.1 Mg Tab, 0.1 MG GTB Q6 Y for ELEVATED BLOOD PRESSURE, TAB HOLD IF SBP<110 04/21/16 Carvedilol* (Carvedilol*) 6.25 Mg Tablet, 6.25 MG GTB BID, #60 TAB 04/21/16 Allergies Allergies: Coded Allergies: codeine (Verified Allergy, Unknown, 07/06/16) ROS PMhx/Soc History of Surgery: Yes (Knee replacement, back fusion, hysterectoy, G tube and trach placement) Anesthesia Reaction: No Hx Neurological Disorder: Yes (Encephalpathy , CVA 2016) Hx Respiratory Disorders: Yes (Chronic Vent / Trach, PNA, COPD) Hx Cardiac Disorders: Yes (Atheroschlerosis, HTN) 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, VRE, Pseudmonas) Hx Alcohol Use: No Hx Substance Use: No Hx Tobacco Use: No Smoking Status: Never smoker FmHx Family History: other (Unable to obtain) Respiratory: shortness of breath PMH/Family/Social Past Surgical History Past Surgical Hx: other Social History Smoking Status: Never smoker Exam/Review of Systems Vital Signs Vitals Vital Signs Date Time Temp Pulse Resp B/P Pulse Ox O2 Delivery O2 Flow Rate FiO2 07/07/16 11:12 110 28 100 40 07/07/16 10:00 98.3 119/53 Mechanical Ventilator 10.0 Intake and Output 07/06/16 07/06/16 07/07/16 14:59 22:59 06:59 Intake Total 50 ml 3490 ml Balance 50 ml 3490 ml Exam Constitutional: alert Eyes: nl sclera ENMT: nl external ears & nose Respiratory: diminished breath sounds Cardiovascular: nl pulses Gastrointestinal: non-tender, soft Musculoskeletal: muscle weakness Extremities: normal pulses, other (Left foot gangrene, no other rashes) Neurological: confused Lymph: nontender Labs Result Diagram: 07/06/16205807/06/162058 Procedures Procedures White blood cell count elevated, anemic, lactic acidosis Urinalysis is pending 12-lead EKG was interpreted by Clarissa Santoyo MD: Sinus tachycardia at 126 bpm Normal axis Normal intervals No acute ST or T wave changes suggestive of acute ischemia or STEMI. Chest x-ray: Mild failure. JUAN POSADA Jul 07, 2016 12:03
--- NOTE | 2016-07-14 14:39 | PN ---
Date/Time of Note Date/Time of Note DATE: 07/14/16 TIME: 14:36 Assessment/Plan Lines/Catheters IV Catheter Type (from Nrsg): Saline Lock Urinary Cath still in place: Yes Subjective 24 Hr Interval Summary Free Text/Dictation nad, afebrile, no s/s of aspiration . sill get agitated at times. seems comfortable. dw staff. Subjective hx not possible: pt non-verbal Constitutional: requiring IVF Eyes: no complaints ENT: no complaints Respiratory: no complaints Cardiovascular: no complaints Exam/Review of Systems Vital Signs Vitals Vital Signs Date Time Temp Pulse Resp B/P Pulse Ox O2 Delivery O2 Flow Rate FiO2 07/14/16 13:54 93 19 99 30 07/14/16 11:26 98.4 121/58 07/14/16 06:00 Mechanical Ventilator Intake and Output 07/13/16 07/13/16 07/14/16 15:00 23:00 07:00 Intake Total 660 ml Output Total 550 ml Balance 110 ml Exam Psych: no complaints Head: atraumatic Eyes: EOMI ENMT: nl external ears & nose Neck: non-tender Respiratory: diminished breath sounds Cardiovascular: nl pulses Gastrointestinal: non-tender, soft Musculoskeletal: muscle weakness Extremities: normal pulses Neurological: lethargic Lymph: nontender Results Result Diagram: 07/14/16 0310 07/14/16 0310 Results 24 hrs Laboratory Tests Test 07/13/16 17:30 07/13/16 20:56 07/14/16 01:11 07/14/16 03:10 Bedside Glucose 150 152 183 White Blood Count 17.0 H Red Blood Count 3.20 L Hemoglobin 8.5 L Hematocrit 29.6 L Mean Corpuscular Volume 92.5 Mean Corpuscular Hemoglobin 26.6 L Mean Corpuscular Hemoglobin Concent 28.7 L Red Cell Distribution Width 20.8 H Platelet Count 565 H Mean Platelet Volume 10.7 H Neutrophils % 69.3 Lymphocytes % 19.4 Monocytes % 6.6 Eosinophils % 3.9 Basophils % 0.2 Nucleated Red Blood Cells % 0.0 Neutrophils # 11.8 H Lymphocytes # 3.3 H Monocytes # 1.1 H Eosinophils # 0.7 H Basophils # 0.0 Nucleated Red Blood Cells # 0.0 Sodium Level 139 Potassium Level 4.5 Chloride Level 98 Carbon Dioxide Level 32 H Anion Gap 14 Blood Urea Nitrogen 33 H Creatinine 0.60 Glucose Level 182 Calcium Level 9.4 Phosphorus Level 5.1 H Magnesium Level 2.3 Amikacin Level Trough Test 07/14/16 04:40 07/14/16 07:22 07/14/16 12:21 07/14/16 12:53 Bedside Glucose 177 173 153 Lab Scanned Report REFERENCE LAB Medications Medications Current Medications Acetaminophen (Tylenol Tab) 650 mg Q6 PRN GTB PAIN Last administered on 06:19; Admin Dose 650 MG; Start 07/07/16 at 12:00 Apixaban (Eliquis) 5 mg BID GTB Last administered on 07/14/16 08:55; Admin Dose 5 MG; Start 07/07/16 at 21:00 Bisacodyl (Dulcolax Supp) 10 mg PRN [place] ; Start 07/07/16 at 12:00 Carvedilol (Coreg) 3.125 mg BID GTB Last administered on 07/14/16 08:56; Admin Dose 3.125 MG; Start 07/07/16 at 21:00 Chlorhexidine Gluconate (Peridex) 15 ml Q12 MM Last administered on 07/14/16 08 :56; Admin Dose 15 ML; Start 07/07/16 at 21:00 Clonazepam (Klonopin) 0.5 mg TID GTB Last administered on 07/14/16 12:24; Admin Dose 0.5 MG; Start 07/07/16 at 13:00 Fentanyl (Duragesic 50 Mcg/Hr Patch) 1 patch Q72H TRANSDERM Last administered on 07/14/16 12:00; Admin Dose 1 PATCH; Start 07/08/16 at 12:00 Ferrous Sulfate (Feosol Liquid Cup) 330 mg BID GTB Last administered on 08:56; Admin Dose 330 MG; Start 07/07/16 at 21:00 Insulin Glargine (Lantus) 10 unit QHS SC Last administered on 07/13/16 21:01; Admin Dose 10 UNIT; Start 07/07/16 at 21:00 Lansoprazole (Prevacid) 30 mg DAILY GTB Last administered on 07/14/16 08:55; Admin Dose 30 MG; Start 07/08/16 at 09:00 Levalbuterol (Xopenex Neb) 0.63 mg Q6H PRN NEB WHEEZING AND SOB Last administered on 07/13/16 22:10; Admin Dose 0.63 MG; Start 07/07/16 at 12:00 Magnesium Hydroxide (Milk Of Mag) 30 ml DAILY PRN GTB CONSTIPATION; Start 07/07 at 12:00 Metoclopramide HCl (Reglan) 10 mg Q6 PRN GTB NAUSEA AND/OR VOMITING; Start at 17:00 Sodium Biphosphate/ Sodium Phosphate (Fleet Enema) 135 ml PRN PRN [place] severe constipation; Start 07/07/16 at 17:00 Quetiapine Fumarate (Seroquel) 12.5 mg DAILY GTB Last administered on 07/14/16 12:24; Admin Dose 12.5 MG; Start 07/08/16 at 09:00 Valsartan (Diovan) 80 mg DAILY GTB Last administered on 07/14/16 08:55; Admin Dose 80 MG; Start 07/08/16 at 09:00 Zinc Sulfate (Zinc Sulfate) 220 mg DAILY GTB Last administered on 07/14/16 08: 56; Admin Dose 220 MG; Start 07/08/16 at 09:00 Multivitamins (Thera-Plus) 5 ml DAILY GTB Last administered on 07/14/16 08:56; Admin Dose 5 ML; Start 07/08/16 at 09:00 Ascorbic Acid (Vitamin C) 500 mg DAILY GTB Last administered on 07/14/16 08:55 ; Admin Dose 500 MG; Start 07/08/16 at 09:00 Miscellaneous Information 1 ea NOTE XX ; Start 07/07/16 at 17:30 Glucose (Glutose) 15 gm Q15M PRN PO DECREASED GLUCOSE; Start 07/07/16 at 17:30 Glucose (Glutose) 22.5 gm Q15M PRN PO DECREASED GLUCOSE; Start 07/07/16 at 17: 30 Dextrose (D50w Syringe) 25 ml Q15M PRN IV DECREASED GLUCOSE; Start 07/07/16 at 17:30 Dextrose (D50w Syringe) 50 ml Q15M PRN IV DECREASED GLUCOSE; Start 07/07/16 at 17:30 Glucagon (Glucagen) 1 mg Q15M PRN IM DECREASED GLUCOSE; Start 07/07/16 at 17:30 Glucose (Glutose) 15 gm Q15M PRN BUCCAL DECREASED GLUCOSE; Start 07/07/16 at 17 :30 Sodium Hypochlorite (Dakin'S (1/4 Strength)) 1 applic QHS IRR Last administered on 07/13/16 20:52; Admin Dose 1 APPLIC; Start 07/11/16 at 21:00 Docusate Sodium (Colace Liquid Cup) 100 mg DAILY GTB Last administered on 08:56; Admin Dose 100 MG; Start 07/12/16 at 10:00 Linezolid (Zyvox) 600 mg BID PO Last administered on 07/14/16 12:24; Admin Dose 600 MG; Start 07/12/16 at 21:00 Amikacin Sulfate AMIKACIN PER PHARMACY NOTE XX ; Start 07/12/16 at 13:30 Amikacin Sulfate/ Sodium Chloride (Amikacin/NS) 104 ml @ 102 mls/hr Q36H IVPB Last administered on 07/14/16 04:43; Admin Dose 102 MLS/HR; Start 07/12/16 at 16: 00 Silver Sulfadiazine (Thermazene 1% 25 Gm) 1 applic DAILY TOP Last administered on 07/14/16 08:57; Admin Dose 1 APPLIC; Start 07/14/16 at 09:00 Insulin Aspart (Novolog Insulin Pen) NOVOLOG *MILD* ALGORI... Q6 SC Last administered on 07/14/16 12:25; Admin Dose 1 UNIT; Start 07/14/16 at 12:00 JUAN POSADA Jul 14, 2016 14:39
--- NOTE | 2016-07-14 15:14 | CONS ---
Date/Time of Note Date/Time of Note DATE: 07/14/16 TIME: 15:13 Assessment/Plan Assessment/Plan Chief Complaint/Hosp Course SUBJECTIVE: No events overnight. No changes MICROBIOLOGY: Wound culture grew Pseudomonas aeruginosa, Providencia stuartii, VRE INDWELLINGS: Trach, PEG, Rivera. ANTIMICROBIALS: The patient is on: 1. Zyvox 2. Colistin inhalation. 3. Amikacin. PHYSICAL EXAMINATION: GENERAL: This is a chronically ill-appearing, elderly woman who is in no distress. HEENT: Head atraumatic, normocephalic. Sclerae anicteric. Buccal mucosa dry. NECK: Supple. Tracheostomy present. CHEST: Rise symmetrical. Breath sounds diminished to bases. HEART: S1, S2. ABDOMEN: Soft. Bowel tones present. EXTREMITIES: Left lower extremity dressing intact. ASSESSMENT: 1. Persistent leukocytosis, likely 2 to #2 , rule out myelodysplasia. 2. Left foot gangrene with open wound culture growing multi-drug resistant organisms. 3. Chronic respiratory failure. 4. Dysphagia. 5. Chronic encephalopathy. 6. Severe peripheral arterial and vascular disease, not a candidate for revascularization procedure per previous admission vascular note. 7. Diabetes. PLAN: Remains unchanged, will add Flagyl for anaerobic coverage, continue abx, local wound care, management as per primary team and consultants. The patient is DNR status. staff Problems: Consultation Date/Type/Reason Admit Date/Time Jul 06, 2016 at 22:42 Initial Consult Date 07/12/16 Type of Consultation: id Referring Provider: JOSR LORENZO MD Exam/Review of Systems Vital Signs Vitals Vital Signs Date Time Temp Pulse Resp B/P Pulse Ox O2 Delivery O2 Flow Rate FiO2 07/14/16 14:00 98.0 98 19 134/58 96 07/14/16 13:54 30 07/14/16 06:00 Mechanical Ventilator Intake and Output 07/13/16 07/13/16 07/14/16 15:00 23:00 07:00 Intake Total 660 ml Output Total 550 ml Balance 110 ml Results Result Diagram: 07/14/16 0310 07/14/16 0310 Results 24 hrs Laboratory Tests Test 07/13/16 17:30 07/13/16 20:56 07/14/16 01:11 07/14/16 03:10 Bedside Glucose 150 152 183 White Blood Count 17.0 H Red Blood Count 3.20 L Hemoglobin 8.5 L Hematocrit 29.6 L Mean Corpuscular Volume 92.5 Mean Corpuscular Hemoglobin 26.6 L Mean Corpuscular Hemoglobin Concent 28.7 L Red Cell Distribution Width 20.8 H Platelet Count 565 H Mean Platelet Volume 10.7 H Neutrophils % 69.3 Lymphocytes % 19.4 Monocytes % 6.6 Eosinophils % 3.9 Basophils % 0.2 Nucleated Red Blood Cells % 0.0 Neutrophils # 11.8 H Lymphocytes # 3.3 H Monocytes # 1.1 H Eosinophils # 0.7 H Basophils # 0.0 Nucleated Red Blood Cells # 0.0 Sodium Level 139 Potassium Level 4.5 Chloride Level 98 Carbon Dioxide Level 32 H Anion Gap 14 Blood Urea Nitrogen 33 H Creatinine 0.60 Glucose Level 182 Calcium Level 9.4 Phosphorus Level 5.1 H Magnesium Level 2.3 Amikacin Level Trough Test 07/14/16 04:40 07/14/16 07:22 07/14/16 12:21 07/14/16 12:53 Bedside Glucose 177 173 153 Lab Scanned Report REFERENCE LAB Medications Medications Current Medications Acetaminophen (Tylenol Tab) 650 mg Q6 PRN GTB PAIN Last administered on 06:19; Admin Dose 650 MG; Start 07/07/16 at 12:00 Apixaban (Eliquis) 5 mg BID GTB Last administered on 07/14/16 08:55; Admin Dose 5 MG; Start 07/07/16 at 21:00 Bisacodyl (Dulcolax Supp) 10 mg PRN ID ; Start 07/07/16 at 12:00 Carvedilol (Coreg) 3.125 mg BID GTB Last administered on 07/14/16 08:56; Admin Dose 3.125 MG; Start 07/07/16 at 21:00 Chlorhexidine Gluconate (Peridex) 15 ml Q12 MM Last administered on 07/14/16 08 :56; Admin Dose 15 ML; Start 07/07/16 at 21:00 Clonazepam (Klonopin) 0.5 mg TID GTB Last administered on 07/14/16 12:24; Admin Dose 0.5 MG; Start 07/07/16 at 13:00 Fentanyl (Duragesic 50 Mcg/Hr Patch) 1 patch Q72H TRANSDERM Last administered on 07/14/16 12:00; Admin Dose 1 PATCH; Start 07/08/16 at 12:00 Ferrous Sulfate (Feosol Liquid Cup) 330 mg BID GTB Last administered on 08:56; Admin Dose 330 MG; Start 07/07/16 at 21:00 Insulin Glargine (Lantus) 10 unit QHS SC Last administered on 07/13/16 21:01; Admin Dose 10 UNIT; Start 07/07/16 at 21:00 Lansoprazole (Prevacid) 30 mg DAILY GTB Last administered on 07/14/16 08:55; Admin Dose 30 MG; Start 07/08/16 at 09:00 Levalbuterol (Xopenex Neb) 0.63 mg Q6H PRN NEB WHEEZING AND SOB Last administered on 07/13/16 22:10; Admin Dose 0.63 MG; Start 07/07/16 at 12:00 Magnesium Hydroxide (Milk Of Mag) 30 ml DAILY PRN GTB CONSTIPATION; Start 07/07 at 12:00 Metoclopramide HCl (Reglan) 10 mg Q6 PRN GTB NAUSEA AND/OR VOMITING; Start at 17:00 Sodium Biphosphate/ Sodium Phosphate (Fleet Enema) 135 ml PRN PRN ID severe constipation; Start 07/07/16 at 17:00 Quetiapine Fumarate (Seroquel) 12.5 mg DAILY GTB Last administered on 07/14/16 12:24; Admin Dose 12.5 MG; Start 07/08/16 at 09:00 Valsartan (Diovan) 80 mg DAILY GTB Last administered on 07/14/16 08:55; Admin Dose 80 MG; Start 07/08/16 at 09:00 Zinc Sulfate (Zinc Sulfate) 220 mg DAILY GTB Last administered on 07/14/16 08: 56; Admin Dose 220 MG; Start 07/08/16 at 09:00 Multivitamins (Thera-Plus) 5 ml DAILY GTB Last administered on 07/14/16 08:56; Admin Dose 5 ML; Start 07/08/16 at 09:00 Ascorbic Acid (Vitamin C) 500 mg DAILY GTB Last administered on 07/14/16 08:55 ; Admin Dose 500 MG; Start 07/08/16 at 09:00 Miscellaneous Information 1 ea NOTE XX ; Start 07/07/16 at 17:30 Glucose (Glutose) 15 gm Q15M PRN PO DECREASED GLUCOSE; Start 07/07/16 at 17:30 Glucose (Glutose) 22.5 gm Q15M PRN PO DECREASED GLUCOSE; Start 07/07/16 at 17: 30 Dextrose (D50w Syringe) 25 ml Q15M PRN IV DECREASED GLUCOSE; Start 07/07/16 at 17:30 Dextrose (D50w Syringe) 50 ml Q15M PRN IV DECREASED GLUCOSE; Start 07/07/16 at 17:30 Glucagon (Glucagen) 1 mg Q15M PRN IM DECREASED GLUCOSE; Start 07/07/16 at 17:30 Glucose (Glutose) 15 gm Q15M PRN BUCCAL DECREASED GLUCOSE; Start 07/07/16 at 17 :30 Sodium Hypochlorite (Dakin'S (1/4 Strength)) 1 applic QHS IRR Last administered on 07/13/16 20:52; Admin Dose 1 APPLIC; Start 07/11/16 at 21:00 Docusate Sodium (Colace Liquid Cup) 100 mg DAILY GTB Last administered on 08:56; Admin Dose 100 MG; Start 07/12/16 at 10:00 Linezolid (Zyvox) 600 mg BID PO Last administered on 07/14/16 12:24; Admin Dose 600 MG; Start 07/12/16 at 21:00 Amikacin Sulfate AMIKACIN PER PHARMACY NOTE XX ; Start 07/12/16 at 13:30 Amikacin Sulfate/ Sodium Chloride (Amikacin/NS) 104 ml @ 102 mls/hr Q36H IVPB Last administered on 07/14/16 04:43; Admin Dose 102 MLS/HR; Start 07/12/16 at 16: 00 Silver Sulfadiazine (Thermazene 1% 25 Gm) 1 applic DAILY TOP Last administered on 07/14/16 08:57; Admin Dose 1 APPLIC; Start 07/14/16 at 09:00 Insulin Aspart (Novolog Insulin Pen) NOVOLOG *MILD* ALGORI... Q6 SC Last administered on 07/14/16 12:25; Admin Dose 1 UNIT; Start 07/14/16 at 12:00 JEFF SERNA NP Jul 14, 2016 15:14
[2016-07-14] MEDS: metroNIDAZOLE 500 MG TAB NGT SCH ×2 (15:48→21:13)
[2016-07-14] MEDS: INSULIN GLARGINE [LANtus] 3 ML PEN SC SCH (21:08)
[2016-07-14] MEDS: SODIUM HYPOCHLORITE 0.125% 473 ML BTL IRR SCH (21:09)
[2016-07-14] MEDS: LEVALBUTEROL (NEB) 0.63 MG/3 ML AMP NEB PRN (22:47)
[2016-07-15] VITALS (32 sets, daily range): BP systolic 104–141; BP diastolic 60–89; PULSE 82–96; RESP 18–25
[2016-07-15] MEDS: INSULIN ASPART [NOVOLOG] 3 ML PEN SC SCH ×4 (00:02→17:29)
[2016-07-15] MEDS: metroNIDAZOLE 500 MG TAB NGT SCH ×3 (05:33→21:21)
[2016-07-15 06:00] LABS: ADD SCAN DIFF NO
[2016-07-15 06:16] LABS: BASOPHIL # 0.1 10^3/ul (0.0-0.1); BASOPHILS % 0.4 % (0.0-2.0); EOSINOPHILS # 0.4 10^3/ul (0.0-0.5); EOSINOPHILS % 2.5 % (0.0-7.0); HEMATOCRIT 30.2 % (37.0-47.0); HEMOGLOBIN 8.9 g/dl (12.0-16.0); LYMPHOCYTES # 3.7 10^3/ul (0.8-2.9); LYMPHOCYTES % 21.9 % (15.0-51.0); MEAN CORPUSCULAR HEMOGLOBIN 27.4 pg (29.0-33.0); MEAN CORPUSCULAR HGB CONC 29.5 g/dl (32.0-37.0); MEAN CORPUSCULAR VOLUME 92.9 fl (82.0-101.0); MEAN PLATELET VOLUME 10.9 fl (7.4-10.4); MONOCYTE # 1.2 10^3/ul (0.3-0.9); NEUTROPHIL # 11.6 10^3/ul (1.6-7.5); NEUTROPHILS % 67.7 % (39.0-77.0); PLATELET COUNT 607 10^3/UL (140-415); RED BLOOD COUNT 3.25 10^6/ul (4.20-5.40); RED CELL DISTRIBUTION WIDTH 20.8 % (11.5-14.5); WHITE BLOOD COUNT 17.1 10^3/ul (4.8-10.8)
[2016-07-15] MEDS: DOCUSATE SODIUM 10 MG/ML (10ML CUP) GTB SCH (08:56)
[2016-07-15] MEDS: MULTIVITAMINS 5 ML CUP GTB SCH (08:56)
[2016-07-15] MEDS: FERROUS SULFATE 60 MG/ML 5ML CUP GTB SCH ×2 (08:56→21:20)
[2016-07-15] MEDS: ASCORBIC ACID 500 MG TAB GTB SCH (08:57)
[2016-07-15] MEDS: VALSARTAN 80 MG TAB GTB SCH (08:57)
[2016-07-15] MEDS: QUETIAPINE 25 MG TAB GTB SCH (08:57)
[2016-07-15] MEDS: ZYVOX 600 MG TAB PO SCH ×2 (08:57→21:21)
[2016-07-15] MEDS: CHLORHEXIDINE GLUCONATE 15 ML UD CUP MM SCH ×2 (08:57→21:22)
[2016-07-15] MEDS: ZINC SULFATE 220 MG CAP GTB SCH (08:57)
[2016-07-15] MEDS: APIXABAN 5 MG TABLET GTB SCH ×2 (08:57→21:22)
[2016-07-15] MEDS: SILVER SULFADIAZINE 1% 25 GM CR TOP SCH (08:58)
[2016-07-15] MEDS: LANSOPRAZOLE 30 MG CAP GTB SCH (08:58)
[2016-07-15] MEDS: HYDROCODONE/APAP (5/325) TAB GTB PRN ×2 (09:02→21:22)
[2016-07-15] MEDS: clonAZEPAM 0.5 MG TAB GTB SCH ×3 (09:02→21:21)
[2016-07-15] MEDS: COLISTIMETHATE (25 MG/ML INHAL SYG) NEB SCH ×2 (09:20→19:43)
--- NOTE | 2016-07-15 11:31 | CONS ---
Date/Time of Note Date/Time of Note DATE: 07/15/16 TIME: 11:21 Assessment/Plan Assessment/Plan Chief Complaint/Hosp Course 66 yo anemia in the setting of leukocytosis and thrombocytosis. Pt is septic and has multiple sources of infection decubitus ulcers and eft foot gangrene with open wound culture growing multi-drug resistant organisms. It is likely that patient's anemia is secondary to chronic inflammation. Still given the persistent leukocytosis and thrombocytosis despite broad spectrum antibiotics, it is necessary to rule out a myeloproliferative disorder. # Anemia -pt does have mild iron deficiency anemia as evidenced by the iron saturation of 8%. pt also has a component of anemia from chronic inflammation evidenced by low TIBC and high ferritin. -Given the epo level of just 32.5 and Hg > 9 will start Epogen 10,000 unit q week. -currently on ferrous sulfate per g tube. will start IV iron Ferrlecit for 3 days -normal LDH makes hemolysis unlikely -given the borderline Vitamin b12 and folate will check methylmalonic acid level and homocysteine level to see if patient would benefit from Vitamin b12 or folate supplementation #Leukocytosis -likely reactive -will review peripheral smear -will check flow cytometry / NONI 2 mutation analysis and BCR ABL to evaluate for an underlying myeloproliferative disorder. labs still pending #Thrombocytosis -likely reactive -will review peripheral smear -will check flow cytometry / NONI 2 mutation analysis and BCR ABL to evaluate for an underlying myeloproliferative disorder -will start ASA 81 as high platelet count can increase chance of thrombocytosis Approximately 40 min were spent at patient's bedside and in coordination of her care Problems: Consultation Date/Type/Reason Admit Date/Time Jul 06, 2016 at 22:42 Initial Consult Date 07/12/16 Type of Consultation: Hematology Reason for Consultation leukocytosis and thrombocytosis Referring Provider: JOSR LORENZO MD 24 HR Interval Summary Free Text/Dictation no acute overnight events. patient remains on broad spectrum antibiotics. Flagyl was added yesterday Exam/Review of Systems Vital Signs Vitals Vital Signs Date Time Temp Pulse Resp B/P Pulse Ox O2 Delivery O2 Flow Rate FiO2 07/15/16 10:00 98.2 86 19 132/62 99 07/15/16 09:20 30 07/15/16 06:00 Mechanical Ventilator Intake and Output 07/14/16 07/14/16 07/15/16 15:00 23:00 07:00 Intake Total 860 ml 960 ml Output Total 650 ml 550 ml Balance 210 ml 410 ml Exam Constitutional: non-verbal, other (agitated) Psych: confusion Head: normocephalic Eyes: nl conjunctiva Neck: other (trach in place) Gastrointestinal: other (G tube in place), soft Musculoskeletal: nl extremities to inspection, nl gait and stance Results Result Diagram: 07/15/16 0515 07/14/16 0310 Results 24 hrs Laboratory Tests Test 07/14/16 12:21 07/14/16 12:53 07/14/16 17:07 07/14/16 21:03 Bedside Glucose 153 144 177 Lab Scanned Report REFERENCE LAB Test 07/14/16 23:58 07/15/16 05:15 07/15/16 05:30 07/15/16 07:22 Bedside Glucose 197 185 186 White Blood Count 17.1 H Red Blood Count 3.25 L Hemoglobin 8.9 L Hematocrit 30.2 L Mean Corpuscular Volume 92.9 Mean Corpuscular Hemoglobin 27.4 L Mean Corpuscular Hemoglobin Concent 29.5 L Red Cell Distribution Width 20.8 H Platelet Count 607 H Mean Platelet Volume 10.9 H Neutrophils % 67.7 Lymphocytes % 21.9 Monocytes % 7.0 Eosinophils % 2.5 Basophils % 0.4 Nucleated Red Blood Cells % 0.0 Neutrophils # 11.6 H Lymphocytes # 3.7 H Monocytes # 1.2 H Eosinophils # 0.4 Basophils # 0.1 Nucleated Red Blood Cells # 0.0 Medications Medications Current Medications Acetaminophen (Tylenol Tab) 650 mg Q6 PRN GTB PAIN Last administered on 06:19; Admin Dose 650 MG; Start 07/07/16 at 12:00 Apixaban (Eliquis) 5 mg BID GTB Last administered on 07/15/16 08:57; Admin Dose 5 MG; Start 07/07/16 at 21:00 Bisacodyl (Dulcolax Supp) 10 mg PRN NM ; Start 07/07/16 at 12:00 Carvedilol (Coreg) 3.125 mg BID GTB Last administered on 07/15/16 08:57; Admin Dose 3.125 MG; Start 07/07/16 at 21:00 Chlorhexidine Gluconate (Peridex) 15 ml Q12 MM Last administered on 07/15/16 08 :57; Admin Dose 15 ML; Start 07/07/16 at 21:00 Clonazepam (Klonopin) 0.5 mg TID GTB Last administered on 07/15/16 09:02; Admin Dose 0.5 MG; Start 07/07/16 at 13:00 Fentanyl (Duragesic 50 Mcg/Hr Patch) 1 patch Q72H TRANSDERM Last administered on 07/14/16 12:00; Admin Dose 1 PATCH; Start 07/08/16 at 12:00 Ferrous Sulfate (Feosol Liquid Cup) 330 mg BID GTB Last administered on 08:56; Admin Dose 330 MG; Start 07/07/16 at 21:00 Insulin Glargine (Lantus) 10 unit QHS SC Last administered on 07/14/16 21:08; Admin Dose 10 UNIT; Start 07/07/16 at 21:00 Lansoprazole (Prevacid) 30 mg DAILY GTB Last administered on 07/15/16 08:58; Admin Dose 30 MG; Start 07/08/16 at 09:00 Levalbuterol (Xopenex Neb) 0.63 mg Q6H PRN NEB WHEEZING AND SOB Last administered on 07/14/16 22:47; Admin Dose 0.63 MG; Start 07/07/16 at 12:00 Magnesium Hydroxide (Milk Of Mag) 30 ml DAILY PRN GTB CONSTIPATION; Start 07/07 at 12:00 Metoclopramide HCl (Reglan) 10 mg Q6 PRN GTB NAUSEA AND/OR VOMITING; Start at 17:00 Sodium Biphosphate/ Sodium Phosphate (Fleet Enema) 135 ml PRN PRN NM severe constipation; Start 07/07/16 at 17:00 Quetiapine Fumarate (Seroquel) 12.5 mg DAILY GTB Last administered on 07/15/16 08:57; Admin Dose 12.5 MG; Start 07/08/16 at 09:00 Valsartan (Diovan) 80 mg DAILY GTB Last administered on 07/15/16 08:57; Admin Dose 80 MG; Start 07/08/16 at 09:00 Zinc Sulfate (Zinc Sulfate) 220 mg DAILY GTB Last administered on 07/15/16 08: 57; Admin Dose 220 MG; Start 07/08/16 at 09:00 Multivitamins (Thera-Plus) 5 ml DAILY GTB Last administered on 07/15/16 08:56; Admin Dose 5 ML; Start 07/08/16 at 09:00 Ascorbic Acid (Vitamin C) 500 mg DAILY GTB Last administered on 07/15/16 08:57 ; Admin Dose 500 MG; Start 07/08/16 at 09:00 Miscellaneous Information 1 ea NOTE XX ; Start 07/07/16 at 17:30 Glucose (Glutose) 15 gm Q15M PRN PO DECREASED GLUCOSE; Start 07/07/16 at 17:30 Glucose (Glutose) 22.5 gm Q15M PRN PO DECREASED GLUCOSE; Start 07/07/16 at 17: 30 Dextrose (D50w Syringe) 25 ml Q15M PRN IV DECREASED GLUCOSE; Start 07/07/16 at 17:30 Dextrose (D50w Syringe) 50 ml Q15M PRN IV DECREASED GLUCOSE; Start 07/07/16 at 17:30 Glucagon (Glucagen) 1 mg Q15M PRN IM DECREASED GLUCOSE; Start 07/07/16 at 17:30 Glucose (Glutose) 15 gm Q15M PRN BUCCAL DECREASED GLUCOSE; Start 07/07/16 at 17 :30 Sodium Hypochlorite (Dakin'S (1/4 Strength)) 1 applic QHS IRR Last administered on 07/14/16 21:09; Admin Dose 1 APPLIC; Start 07/11/16 at 21:00 Docusate Sodium (Colace Liquid Cup) 100 mg DAILY GTB Last administered on 08:56; Admin Dose 100 MG; Start 07/12/16 at 10:00 Linezolid (Zyvox) 600 mg BID PO Last administered on 07/15/16 08:57; Admin Dose 600 MG; Start 07/12/16 at 21:00 Amikacin Sulfate AMIKACIN PER PHARMACY NOTE XX ; Start 07/12/16 at 13:30 Amikacin Sulfate/ Sodium Chloride (Amikacin/NS) 104 ml @ 102 mls/hr Q36H IVPB Last administered on 07/14/16 04:43; Admin Dose 102 MLS/HR; Start 07/12/16 at 16: 00 Silver Sulfadiazine (Thermazene 1% 25 Gm) 1 applic DAILY TOP Last administered on 07/15/16 08:58; Admin Dose 1 APPLIC; Start 07/14/16 at 09:00 Insulin Aspart (Novolog Insulin Pen) NOVOLOG *MILD* ALGORI... Q6 SC Last administered on 07/15/16 05:35; Admin Dose 2 UNIT; Start 07/14/16 at 12:00 Metronidazole (Flagyl) 500 mg Q8 NGT Last administered on 07/15/16 05:33; Admin Dose 500 MG; Start 07/14/16 at 15:30 GEOVANI VELA M.D. Jul 15, 2016 11:31
[2016-07-15] MEDS: SOD FERRIC GLUC COMPLX 125 MG in SOD CHLORIDE 0.9% 100 ML IVPB SCH (12:54)
--- NOTE | 2016-07-15 13:13 | PN ---
Date/Time of Note Date/Time of Note DATE: 07/15/16 TIME: 13:12 Assessment/Plan VTE Prophylaxis VTE Prophylaxis Intervention: SCD's Lines/Catheters IV [facility]from [facility] Urinary Cath still in place: Yes Reason Cath still needed: urinary retention Assessment/Plan Chief Complaint/Hosp Course ASSESSMENT AND PLAN: 1. Acute on chronic respiratory failure secondary to pneumonia. Dr. Mcbride is following in pulmonology consultation. Continue ventilator support and bronchodilators. 2. Sepsis, resolving. continue broad-spectrum antibiotics. Dr. Hernadez is following in infectious disease consultation. 3. Acute anemia, with a drop in hemoglobin to 6.9. Status post blood transfusion. Dr. Dowd is following in gastroenterology consultation, stool for OB is negative. Dr. Storey is following patient in hematology consultation. 4. 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 Dr. Sanchez is following in podiatry consultation 5. History of CVA with left-sided hemiplegia. 6. Cardiomyopathy, with an ejection fraction of 45%. 7. Diastolic dysfunction congestive heart failure. 8. Chronic pain syndrome. 9. Ventilator-dependent respiratory failure with tracheostomy. 10. Dysphagia with G-tube placement. 11. Multiple wounds present on admission. Continue Prevacid for deep venous thrombosis prophylaxis. Further recommendations based on clinical course. Plan of care discussed with Dr. Suarez. Problems: Subjective 24 Hr Interval Summary Free Text/Dictation Patient remains afebrile, tolerates G-tube feeding well. Exam/Review of Systems Vital Signs Vitals Vital Signs Date Time Temp Pulse Resp B/P Pulse Ox O2 Delivery O2 Flow Rate FiO2 07/15/16 12:13 98.6 86 19 128/60 95 07/15/16 09:20 30 07/15/16 06:00 Mechanical Ventilator Intake and Output 07/14/16 07/14/16 07/15/16 15:00 23:00 07:00 Intake Total 860 ml 960 ml Output Total 650 ml 550 ml Balance 210 ml 410 ml Exam PHYSICAL ASSESSMENT: GENERAL: Well-developed, obese female, currently is awake, alert, on ventilator support via tracheostomy. HEENT: Head is atraumatic, normocephalic. Pupils are equal and reactive to light and accommodation. Oral mucosa is pink and moist. NECK: Supple. There is a tracheostomy at the base of the neck, with no bleeding. CHEST: Slightly diminished at the bases bilaterally. No wheezing, rhonchi or rales noted. CARDIOVASCULAR: The patient is slightly tachycardic. Normal S1, S2. No murmurs, gallops, clicks or rubs noted. ABDOMEN: Protuberant, soft, nondistended, nontender. Bowel sounds present. There is no guarding, no rebound tenderness. G-tube with an intact stoma. GENITOURINARY: The patient has a Rivera catheter with yellow urine. EXTREMITIES: Patient has multiple necrotic wounds of the left lower extremity, including heel and toes. Also including the left calf, with diminished pulse. The patient has multiple sores, including the buttocks. NEUROLOGIC: Patient is awake, alert, moving right upper and lower extremities. Left-sided hemiplegia. Results Result Diagram: 07/15/16 0515 07/14/16 0310 Results 24 hrs Laboratory Tests Test 07/14/16 17:07 07/14/16 21:03 07/14/16 23:58 07/15/16 05:15 Bedside Glucose 144 177 197 White Blood Count 17.1 H Red Blood Count 3.25 L Hemoglobin 8.9 L Hematocrit 30.2 L Mean Corpuscular Volume 92.9 Mean Corpuscular Hemoglobin 27.4 L Mean Corpuscular Hemoglobin Concent 29.5 L Red Cell Distribution Width 20.8 H Platelet Count 607 H Mean Platelet Volume 10.9 H Neutrophils % 67.7 Lymphocytes % 21.9 Monocytes % 7.0 Eosinophils % 2.5 Basophils % 0.4 Nucleated Red Blood Cells % 0.0 Neutrophils # 11.6 H Lymphocytes # 3.7 H Monocytes # 1.2 H Eosinophils # 0.4 Basophils # 0.1 Nucleated Red Blood Cells # 0.0 Test 07/15/16 05:30 07/15/16 07:22 07/15/16 12:25 Bedside Glucose 185 186 187 Medications Medications Current Medications Acetaminophen (Tylenol Tab) 650 mg Q6 PRN GTB PAIN Last administered on 06:19; Admin Dose 650 MG; Start 07/07/16 at 12:00 Apixaban (Eliquis) 5 mg BID GTB Last administered on 07/15/16 08:57; Admin Dose 5 MG; Start 07/07/16 at 21:00 Bisacodyl (Dulcolax Supp) 10 mg PRN OR ; Start 07/07/16 at 12:00 Carvedilol (Coreg) 3.125 mg BID GTB Last administered on 07/15/16 08:57; Admin Dose 3.125 MG; Start 07/07/16 at 21:00 Chlorhexidine Gluconate (Peridex) 15 ml Q12 MM Last administered on 07/15/16 08 :57; Admin Dose 15 ML; Start 07/07/16 at 21:00 Clonazepam (Klonopin) 0.5 mg TID GTB Last administered on 07/15/16 12:53; Admin Dose 0.5 MG; Start 07/07/16 at 13:00 Fentanyl (Duragesic 50 Mcg/Hr Patch) 1 patch Q72H TRANSDERM Last administered on 07/14/16 12:00; Admin Dose 1 PATCH; Start 07/08/16 at 12:00 Ferrous Sulfate (Feosol Liquid Cup) 330 mg BID GTB Last administered on 08:56; Admin Dose 330 MG; Start 07/07/16 at 21:00 Insulin Glargine (Lantus) 10 unit QHS SC Last administered on 07/14/16 21:08; Admin Dose 10 UNIT; Start 07/07/16 at 21:00 Lansoprazole (Prevacid) 30 mg DAILY GTB Last administered on 07/15/16 08:58; Admin Dose 30 MG; Start 07/08/16 at 09:00 Levalbuterol (Xopenex Neb) 0.63 mg Q6H PRN NEB WHEEZING AND SOB Last administered on 07/14/16 22:47; Admin Dose 0.63 MG; Start 07/07/16 at 12:00 Magnesium Hydroxide (Milk Of Mag) 30 ml DAILY PRN GTB CONSTIPATION; Start 07/07 at 12:00 Metoclopramide HCl (Reglan) 10 mg Q6 PRN GTB NAUSEA AND/OR VOMITING; Start at 17:00 Sodium Biphosphate/ Sodium Phosphate (Fleet Enema) 135 ml PRN PRN OR severe constipation; Start 07/07/16 at 17:00 Quetiapine Fumarate (Seroquel) 12.5 mg DAILY GTB Last administered on 07/15/16 08:57; Admin Dose 12.5 MG; Start 07/08/16 at 09:00 Valsartan (Diovan) 80 mg DAILY GTB Last administered on 07/15/16 08:57; Admin Dose 80 MG; Start 07/08/16 at 09:00 Zinc Sulfate (Zinc Sulfate) 220 mg DAILY GTB Last administered on 07/15/16 08: 57; Admin Dose 220 MG; Start 07/08/16 at 09:00 Multivitamins (Thera-Plus) 5 ml DAILY GTB Last administered on 07/15/16 08:56; Admin Dose 5 ML; Start 07/08/16 at 09:00 Ascorbic Acid (Vitamin C) 500 mg DAILY GTB Last administered on 07/15/16 08:57 ; Admin Dose 500 MG; Start 07/08/16 at 09:00 Miscellaneous Information 1 ea NOTE XX ; Start 07/07/16 at 17:30 Glucose (Glutose) 15 gm Q15M PRN PO DECREASED GLUCOSE; Start 07/07/16 at 17:30 Glucose (Glutose) 22.5 gm Q15M PRN PO DECREASED GLUCOSE; Start 07/07/16 at 17: 30 Dextrose (D50w Syringe) 25 ml Q15M PRN IV DECREASED GLUCOSE; Start 07/07/16 at 17:30 Dextrose (D50w Syringe) 50 ml Q15M PRN IV DECREASED GLUCOSE; Start 07/07/16 at 17:30 Glucagon (Glucagen) 1 mg Q15M PRN IM DECREASED GLUCOSE; Start 07/07/16 at 17:30 Glucose (Glutose) 15 gm Q15M PRN BUCCAL DECREASED GLUCOSE; Start 07/07/16 at 17 :30 Sodium Hypochlorite (Dakin'S (1/4 Strength)) 1 applic QHS IRR Last administered on 07/14/16 21:09; Admin Dose 1 APPLIC; Start 07/11/16 at 21:00 Docusate Sodium (Colace Liquid Cup) 100 mg DAILY GTB Last administered on 08:56; Admin Dose 100 MG; Start 07/12/16 at 10:00 Linezolid (Zyvox) 600 mg BID PO Last administered on 07/15/16 08:57; Admin Dose 600 MG; Start 07/12/16 at 21:00 Amikacin Sulfate AMIKACIN PER PHARMACY NOTE XX ; Start 07/12/16 at 13:30 Amikacin Sulfate/ Sodium Chloride (Amikacin/NS) 104 ml @ 102 mls/hr Q36H IVPB Last administered on 07/14/16 04:43; Admin Dose 102 MLS/HR; Start 07/12/16 at 16: 00 Silver Sulfadiazine (Thermazene 1% 25 Gm) 1 applic DAILY TOP Last administered on 07/15/16 08:58; Admin Dose 1 APPLIC; Start 07/14/16 at 09:00 Insulin Aspart (Novolog Insulin Pen) NOVOLOG *MILD* ALGORI... Q6 SC Last administered on 07/15/16 12:55; Admin Dose 2 UNIT; Start 07/14/16 at 12:00 Metronidazole 500 mg 500 mg Q8 NGT Last administered on 07/15/16 12:54; Admin Dose 500 MG; Start 07/14/16 at 15:30 Ferric Sodium Gluconate Complex/ Sodium Chloride (Ferrlecit/NS) 110 ml @ 100 mls/hr Q24H IVPB Last administered on 07/15/16 12:54; Admin Dose 100 MLS/HR; Start 07/15/16 at 13:00; Stop 07/17/16 at 14:05 DELIO GUILLERMO Jul 15, 2016 13:13
--- NOTE | 2016-07-15 15:50 | CONS ---
Date/Time of Note Date/Time of Note DATE: 07/15/16 TIME: 15:48 Assessment/Plan Assessment/Plan Chief Complaint/Hosp Course SUBJECTIVE: No events overnight. Lying comfortably in bed, afebrile MICROBIOLOGY: Wound culture grew Pseudomonas aeruginosa, Providencia stuartii, VRE INDWELLINGS: Trach, PEG, Rivera. ANTIMICROBIALS: The patient is on: 1. Zyvox 2. Colistin inhalation. 3. Amikacin. 4. Flagyl PHYSICAL EXAMINATION: GENERAL: This is a chronically ill-appearing, elderly woman who is in no distress. HEENT: Head atraumatic, normocephalic. Sclerae anicteric. Buccal mucosa dry. NECK: Supple. Tracheostomy present. CHEST: Rise symmetrical. Breath sounds diminished to bases. HEART: S1, S2. ABDOMEN: Soft. Bowel tones present. EXTREMITIES: Left foot gangrene ASSESSMENT: 1. Persistent leukocytosis, likely 2 to #2 , rule out myelodysplasia. 2. Left foot gangrene with open wound culture growing multi-drug resistant organisms. 3. Chronic respiratory failure. 4. Dysphagia. 5. Chronic encephalopathy. 6. Severe peripheral arterial and vascular disease, not a candidate for revascularization procedure per previous admission vascular note. 7. Diabetes. PLAN: Remains unchanged, Flagyl was added for anaerobic coverage, continue abx , local wound care, management as per primary team and consultants. The patient is DNR status. staff Problems: Consultation Date/Type/Reason Admit Date/Time Jul 06, 2016 at 22:42 Initial Consult Date 07/12/16 Type of Consultation: id Referring Provider: JOSR LORENZO MD Exam/Review of Systems Vital Signs Vitals Vital Signs Date Time Temp Pulse Resp B/P Pulse Ox O2 Delivery O2 Flow Rate FiO2 07/15/16 15:17 94 22 98 30 07/15/16 15:03 98.4 141/63 07/15/16 06:00 Mechanical Ventilator Intake and Output 07/14/16 07/14/16 07/15/16 15:00 23:00 07:00 Intake Total 860 ml 960 ml Output Total 650 ml 550 ml Balance 210 ml 410 ml Results Result Diagram: 07/15/16 0515 07/14/16 0310 Results 24 hrs Laboratory Tests Test 07/14/16 17:07 07/14/16 21:03 07/14/16 23:58 07/15/16 05:15 Bedside Glucose 144 177 197 White Blood Count 17.1 H Red Blood Count 3.25 L Hemoglobin 8.9 L Hematocrit 30.2 L Mean Corpuscular Volume 92.9 Mean Corpuscular Hemoglobin 27.4 L Mean Corpuscular Hemoglobin Concent 29.5 L Red Cell Distribution Width 20.8 H Platelet Count 607 H Mean Platelet Volume 10.9 H Neutrophils % 67.7 Lymphocytes % 21.9 Monocytes % 7.0 Eosinophils % 2.5 Basophils % 0.4 Nucleated Red Blood Cells % 0.0 Neutrophils # 11.6 H Lymphocytes # 3.7 H Monocytes # 1.2 H Eosinophils # 0.4 Basophils # 0.1 Nucleated Red Blood Cells # 0.0 Test 07/15/16 05:30 07/15/16 07:22 07/15/16 12:25 Bedside Glucose 185 186 187 Medications Medications Current Medications Acetaminophen (Tylenol Tab) 650 mg Q6 PRN GTB PAIN Last administered on 06:19; Admin Dose 650 MG; Start 07/07/16 at 12:00 Apixaban (Eliquis) 5 mg BID GTB Last administered on 07/15/16 08:57; Admin Dose 5 MG; Start 07/07/16 at 21:00 Bisacodyl (Dulcolax Supp) [address] ; Start 07/07/16 at 12:00 Carvedilol (Coreg) 3.125 mg BID GTB Last administered on 07/15/16 08:57; Admin Dose 3.125 MG; Start 07/07/16 at 21:00 Chlorhexidine Gluconate (Peridex) 15 ml Q12 MM Last administered on 07/15/16 08 :57; Admin Dose 15 ML; Start 07/07/16 at 21:00 Clonazepam (Klonopin) 0.5 mg TID GTB Last administered on 07/15/16 12:53; Admin Dose 0.5 MG; Start 07/07/16 at 13:00 Fentanyl (Duragesic 50 Mcg/Hr Patch) 1 patch Q72H TRANSDERM Last administered on 07/14/16 12:00; Admin Dose 1 PATCH; Start 07/08/16 at 12:00 Ferrous Sulfate (Feosol Liquid Cup) 330 mg BID GTB Last administered on 08:56; Admin Dose 330 MG; Start 07/07/16 at 21:00 Insulin Glargine (Lantus) 10 unit QHS SC Last administered on 07/14/16 21:08; Admin Dose 10 UNIT; Start 07/07/16 at 21:00 Lansoprazole (Prevacid) 30 mg DAILY GTB Last administered on 07/15/16 08:58; Admin Dose 30 MG; Start 07/08/16 at 09:00 Levalbuterol (Xopenex Neb) 0.63 mg Q6H PRN NEB WHEEZING AND SOB Last administered on 07/14/16 22:47; Admin Dose 0.63 MG; Start 07/07/16 at 12:00 Magnesium Hydroxide (Milk Of Mag) 30 ml DAILY PRN GTB CONSTIPATION; Start 07/07 at 12:00 Metoclopramide HCl (Reglan) 10 mg Q6 PRN GTB NAUSEA AND/OR VOMITING; Start at 17:00 Sodium Biphosphate/ Sodium Phosphate (Fleet Enema) [address] severe constipation; Start 07/07/16 at 17:00 Quetiapine Fumarate (Seroquel) 12.5 mg DAILY GTB Last administered on 07/15/16 08:57; Admin Dose 12.5 MG; Start 07/08/16 at 09:00 Valsartan (Diovan) 80 mg DAILY GTB Last administered on 07/15/16 08:57; Admin Dose 80 MG; Start 07/08/16 at 09:00 Zinc Sulfate (Zinc Sulfate) 220 mg DAILY GTB Last administered on 07/15/16 08: 57; Admin Dose 220 MG; Start 07/08/16 at 09:00 Multivitamins (Thera-Plus) 5 ml DAILY GTB Last administered on 07/15/16 08:56; Admin Dose 5 ML; Start 07/08/16 at 09:00 Ascorbic Acid (Vitamin C) 500 mg DAILY GTB Last administered on 07/15/16 08:57 ; Admin Dose 500 MG; Start 07/08/16 at 09:00 Miscellaneous Information 1 ea NOTE XX ; Start 07/07/16 at 17:30 Glucose (Glutose) 15 gm Q15M PRN PO DECREASED GLUCOSE; Start 07/07/16 at 17:30 Glucose (Glutose) 22.5 gm Q15M PRN PO DECREASED GLUCOSE; Start 07/07/16 at 17: 30 Dextrose (D50w Syringe) 25 ml Q15M PRN IV DECREASED GLUCOSE; Start 07/07/16 at 17:30 Dextrose (D50w Syringe) 50 ml Q15M PRN IV DECREASED GLUCOSE; Start 07/07/16 at 17:30 Glucagon (Glucagen) 1 mg Q15M PRN IM DECREASED GLUCOSE; Start 07/07/16 at 17:30 Glucose (Glutose) 15 gm Q15M PRN BUCCAL DECREASED GLUCOSE; Start 07/07/16 at 17 :30 Sodium Hypochlorite (Dakin'S (04/13 Strength)) 1 applic QHS IRR Last administered on 07/14/16 21:09; Admin Dose 1 APPLIC; Start 07/11/16 at 21:00 Docusate Sodium (Colace Liquid Cup) 100 mg DAILY GTB Last administered on 08:56; Admin Dose 100 MG; Start 07/12/16 at 10:00 Linezolid (Zyvox) 600 mg BID PO Last administered on 07/15/16 08:57; Admin Dose 600 MG; Start 07/12/16 at 21:00 Amikacin Sulfate AMIKACIN PER PHARMACY NOTE XX ; Start 07/12/16 at 13:30 Amikacin Sulfate/ Sodium Chloride (Amikacin/NS) 104 ml @ 102 mls/hr Q36H IVPB Last administered on 07/14/16 04:43; Admin Dose 102 MLS/HR; Start 07/12/16 at 16: 00 Silver Sulfadiazine (Thermazene 1% 25 Gm) 1 applic DAILY TOP Last administered on 07/15/16 08:58; Admin Dose 1 APPLIC; Start 07/14/16 at 09:00 Insulin Aspart (Novolog Insulin Pen) NOVOLOG *MILD* ALGORI... Q6 SC Last administered on 07/15/16 12:55; Admin Dose 2 UNIT; Start 07/14/16 at 12:00 Metronidazole 500 mg 500 mg Q8 NGT Last administered on 07/15/16 12:54; Admin Dose 500 MG; Start 07/14/16 at 15:30 Ferric Sodium Gluconate Complex/ Sodium Chloride (Ferrlecit/NS) 110 ml @ 100 mls/hr Q24H IVPB Last administered on 07/15/16t 12:54; Admin Dose 100 MLS/HR; Start 07/15/16 at 13:00; Stop 07/17/16 at 14:05 JEFF SERNA IN[employer]CH[employer] Jul 15, 2016 15:50
--- NOTE | 2016-07-15 16:04 | CONS ---
Date/Time of Note Date/Time of Note DATE: 07/15/16 TIME: 16:03 Consult Date/Type/Reason Admit Date/Time Jul 06, 2016 at 22:42 Initial Consult Date 07/07/16 Type of Consultation: pulmonary Ordering Provider: JOSR LORENZO MD Subjective Clinically no changes Objective Vital Signs Date Time Temp Pulse Resp B/P Pulse Ox O2 Delivery O2 Flow Rate FiO2 07/15/16 15:17 94 22 98 30 07/15/16 15:03 98.4 141/63 07/15/16 06:00 Mechanical Ventilator Intake and Output 07/14/16 07/14/16 07/15/16 15:00 23:00 07:00 Intake Total 860 ml 960 ml Output Total 650 ml 550 ml Balance 210 ml 410 ml Exam PHYSICAL EXAMINATION GENERAL: Elderly lady on mechanical ventilation via tracheostomy VITAL SIGNS: see below. HEENT: Pupils equal, round, and reactive to light. Tracheostomy site clean and intact. CARDIAC: S1, S2, 2/6 systolic ejection murmur CHEST: Diminished air entry bilaterally. ABDOMEN: Mildly distended. Bowel sounds present no guarding or rebound EXTREMITIES: No cyanosis, clubbing edema +1. Gangrenous left lower extremities NEUROLOGIC: Generalized weakness hemiplegia Results/Medications Result Diagram: 07/15/16 0515 07/14/16 0310 Results 24 hrs Laboratory Tests Test 07/14/16 17:07 07/14/16 21:03 07/14/16 23:58 07/15/16 05:15 Bedside Glucose 144 177 197 White Blood Count 17.1 H Red Blood Count 3.25 L Hemoglobin 8.9 L Hematocrit 30.2 L Mean Corpuscular Volume 92.9 Mean Corpuscular Hemoglobin 27.4 L Mean Corpuscular Hemoglobin Concent 29.5 L Red Cell Distribution Width 20.8 H Platelet Count 607 H Mean Platelet Volume 10.9 H Neutrophils % 67.7 Lymphocytes % 21.9 Monocytes % 7.0 Eosinophils % 2.5 Basophils % 0.4 Nucleated Red Blood Cells % 0.0 Neutrophils # 11.6 H Lymphocytes # 3.7 H Monocytes # 1.2 H Eosinophils # 0.4 Basophils # 0.1 Nucleated Red Blood Cells # 0.0 Test 07/15/16 05:30 07/15/16 07:22 07/15/16 12:25 Bedside Glucose 185 186 187 Medications Current Medications Acetaminophen (Tylenol Tab) 650 mg Q6 PRN GTB PAIN Last administered on 06:19; Admin Dose 650 MG; Start 07/07/16 at 12:00 Apixaban (Eliquis) 5 mg BID GTB Last administered on 07/15/16 08:57; Admin Dose 5 MG; Start 07/07/16 at 21:00 Bisacodyl (Dulcolax Supp) 10 mg PRN [place] ; Start 07/07/16 at 12:00 Carvedilol (Coreg) 3.125 mg BID GTB Last administered on 07/15/16 08:57; Admin Dose 3.125 MG; Start 07/07/16 at 21:00 Chlorhexidine Gluconate (Peridex) 15 ml Q12 MM Last administered on 07/15/16 08 :57; Admin Dose 15 ML; Start 07/07/16 at 21:00 Clonazepam (Klonopin) 0.5 mg TID GTB Last administered on 07/15/16 12:53; Admin Dose 0.5 MG; Start 07/07/16 at 13:00 Fentanyl (Duragesic 50 Mcg/Hr Patch) 1 patch Q72H TRANSDERM Last administered on 07/14/16 12:00; Admin Dose 1 PATCH; Start 07/08/16 at 12:00 Ferrous Sulfate (Feosol Liquid Cup) 330 mg BID GTB Last administered on 08:56; Admin Dose 330 MG; Start 07/07/16 at 21:00 Insulin Glargine (Lantus) 10 unit QHS SC Last administered on 07/14/16 21:08; Admin Dose 10 UNIT; Start 07/07/16 at 21:00 Lansoprazole (Prevacid) 30 mg DAILY GTB Last administered on 07/15/16 08:58; Admin Dose 30 MG; Start 07/08/16 at 09:00 Levalbuterol (Xopenex Neb) 0.63 mg Q6H PRN NEB WHEEZING AND SOB Last administered on 07/14/16 22:47; Admin Dose 0.63 MG; Start 07/07/16 at 12:00 Magnesium Hydroxide (Milk Of Mag) 30 ml DAILY PRN GTB CONSTIPATION; Start 07/07 at 12:00 Metoclopramide HCl (Reglan) 10 mg Q6 PRN GTB NAUSEA AND/OR VOMITING; Start at 17:00 Sodium Biphosphate/ Sodium Phosphate (Fleet Enema) 135 ml PRN PRN [place] severe constipation; Start 07/07/16 at 17:00 Quetiapine Fumarate (Seroquel) 12.5 mg DAILY GTB Last administered on 07/15/16 08:57; Admin Dose 12.5 MG; Start 07/08/16 at 09:00 Valsartan (Diovan) 80 mg DAILY GTB Last administered on 07/15/16 08:57; Admin Dose 80 MG; Start 07/08/16 at 09:00 Zinc Sulfate (Zinc Sulfate) 220 mg DAILY GTB Last administered on 07/15/16 08: 57; Admin Dose 220 MG; Start 07/08/16 at 09:00 Multivitamins (Thera-Plus) 5 ml DAILY GTB Last administered on 07/15/16 08:56; Admin Dose 5 ML; Start 07/08/16 at 09:00 Ascorbic Acid (Vitamin C) 500 mg DAILY GTB Last administered on 07/15/16 08:57 ; Admin Dose 500 MG; Start 07/08/16 at 09:00 Miscellaneous Information 1 ea NOTE XX ; Start 07/07/16 at 17:30 Glucose (Glutose) 15 gm Q15M PRN PO DECREASED GLUCOSE; Start 07/07/16 at 17:30 Glucose (Glutose) 22.5 gm Q15M PRN PO DECREASED GLUCOSE; Start 07/07/16 at 17: 30 Dextrose (D50w Syringe) 25 ml Q15M PRN IV DECREASED GLUCOSE; Start 07/07/16 at 17:30 Dextrose (D50w Syringe) 50 ml Q15M PRN IV DECREASED GLUCOSE; Start 07/07/16 at 17:30 Glucagon (Glucagen) 1 mg Q15M PRN IM DECREASED GLUCOSE; Start 07/07/16 at 17:30 Glucose (Glutose) 15 gm Q15M PRN BUCCAL DECREASED GLUCOSE; Start 07/07/16 at 17 :30 Sodium Hypochlorite (Dakin'S (1/4 Strength)) 1 applic QHS IRR Last administered on 07/14/16 21:09; Admin Dose 1 APPLIC; Start 07/11/16 at 21:00 Docusate Sodium (Colace Liquid Cup) 100 mg DAILY GTB Last administered on 08:56; Admin Dose 100 MG; Start 07/12/16 at 10:00 Linezolid (Zyvox) 600 mg BID PO Last administered on 07/15/16 08:57; Admin Dose 600 MG; Start 07/12/16 at 21:00 Amikacin Sulfate AMIKACIN PER PHARMACY NOTE XX ; Start 07/12/16 at 13:30 Amikacin Sulfate/ Sodium Chloride (Amikacin/NS) 104 ml @ 102 mls/hr Q36H IVPB Last administered on 07/14/16 04:43; Admin Dose 102 MLS/HR; Start 07/12/16 at 16: 00 Silver Sulfadiazine (Thermazene 1% 25 Gm) 1 applic DAILY TOP Last administered on 07/15/16 08:58; Admin Dose 1 APPLIC; Start 07/14/16 at 09:00 Insulin Aspart (Novolog Insulin Pen) NOVOLOG *MILD* ALGORI... Q6 SC Last administered on 07/15/16 12:55; Admin Dose 2 UNIT; Start 07/14/16 at 12:00 Metronidazole 500 mg 500 mg Q8 NGT Last administered on 07/15/16 12:54; Admin Dose 500 MG; Start 07/14/16 at 15:30 Ferric Sodium Gluconate Complex/ Sodium Chloride (Ferrlecit/NS) 110 ml @ 100 mls/hr Q24H IVPB Last administered on 07/15/16 12:54; Admin Dose 100 MLS/HR; Start 07/15/16 at 13:00; Stop 07/17/16 at 14:05 Assessment/Plan Chief Complaint/Hosp Course Assessment 1. Vent dependent respiratory failure 2. History of CVA with hemiplegia 3. History of encephalopathy chronic secondary to above 4. Leukocytosis possible pneumonia healthcare associated 5. Anemia evidence of iron deficiency on iron panel 6. History of dysphagia with G-tube 7. History of atrial fibrillation 8. Necrotic toes left lower extremity Plan 1. Monitor H&H 2. Continue proton pump inhibitor 3. Continue mechanical ventilation 4. Antibiotics per infectious diseases adjusted for cultures 5. Continue tube feeding as tolerated 6. DVT and GI prophylaxis Disposition Consider transfer to [place] for continuing care Problems: JORDON MONSON MD, [facility] Jul 15, 2016 16:04
[2016-07-15] MEDS: AMIKACIN 1,000 MG in SOD CHLORIDE 0.9% 100 ML IVPB SCH (16:40)
--- NOTE | 2016-07-15 17:48 | CONS ---
Date/Time of Note Date/Time of Note DATE: 07/15/16 TIME: 17:47 Assessment/Plan Assessment/Plan Additional Assessment/Plan Additional Assessment/Plan IMPRESSION: 1. Sepsis, most probably from pneumonia and urinary tract infection. 2. Severe anemia. No evidence of acute gastrointestinal bleeding. Hematocrit has remained stable. 3. Left lower extremity cellulitis, chronic wound with left foot gangrene. 4. Peripheral vascular disease. 5. Dysphagia, status post percutaneous endoscopic gastrostomy. 6. Cerebrovascular accident. 7. Encephalopathy. 8. Osteoarthritis. 9. Vent dependent respiratory failure. 10. Cardiomyopathy with ejection fraction of 45%. 11. Peripheral vascular disease Plan Continue Procrit Monitor H&H Continue present care Patient on multiple antibiotic. Consultation Date/Type/Reason Admit Date/Time Jul 06, 2016 at 22:42 Initial Consult Date 07/07/16 Type of Consultation: pulmonary Referring Provider: JOSR LORENZO MD 24 HR Interval Summary Subjective hx not possible: pt non-verbal Exam/Review of Systems Vital Signs Vitals Vital Signs Date Time Temp Pulse Resp B/P Pulse Ox O2 Delivery O2 Flow Rate FiO2 07/15/16 17:07 95 20 99 30 07/15/16 15:03 98.4 141/63 07/15/16 06:00 Mechanical Ventilator Intake and Output 07/14/16 07/14/16 07/15/16 15:00 23:00 07:00 Intake Total 860 ml 960 ml Output Total 650 ml 550 ml Balance 210 ml 410 ml Exam Constitutional: alert, oriented, well developed Psych: nl mood/affect, no complaints Head: atraumatic, normocephalic Eyes: EOMI, PERRL, nl conjunctiva, nl lids, nl sclera ENMT: nl external ears & nose, nl lips & teeth, nl nasal mucosa & septum Neck: non-tender, supple Respiratory: clear to auscultation, normal air movement Cardiovascular: nl pulses, regular rate and rhythm Gastrointestinal: nl liver, spleen, non-tender, soft Musculoskeletal: nl extremities to inspection, nl gait and stance Extremities: normal pulses Neurological: MEDICAL TECHNOLOGIST PRN II-XII intact, nl mental status, nl speech, nl strength Skin: nl turgor, No rash or lesions Lymph: nl lymph nodes Results Result Diagram: 07/15/16 0515 07/14/16 0310 Results 24 hrs Laboratory Tests Test 07/14/16 21:03 07/14/16 23:58 07/15/16 05:15 07/15/16 05:30 Bedside Glucose 177 197 185 White Blood Count 17.1 H Red Blood Count 3.25 L Hemoglobin 8.9 L Hematocrit 30.2 L Mean Corpuscular Volume 92.9 Mean Corpuscular Hemoglobin 27.4 L Mean Corpuscular Hemoglobin Concent 29.5 L Red Cell Distribution Width 20.8 H Platelet Count 607 H Mean Platelet Volume 10.9 H Neutrophils % 67.7 Lymphocytes % 21.9 Monocytes % 7.0 Eosinophils % 2.5 Basophils % 0.4 Nucleated Red Blood Cells % 0.0 Neutrophils # 11.6 H Lymphocytes # 3.7 H Monocytes # 1.2 H Eosinophils # 0.4 Basophils # 0.1 Nucleated Red Blood Cells # 0.0 Test 07/15/16 07:22 07/15/16 12:25 07/15/16 17:02 Bedside Glucose 186 187 182 Medications Medications Current Medications Acetaminophen (Tylenol Tab) 650 mg Q6 PRN GTB PAIN Last administered on 06:19; Admin Dose 650 MG; Start 07/07/16 at 12:00 Apixaban (Eliquis) 5 mg BID GTB Last administered on 07/15/16 08:57; Admin Dose 5 MG; Start 07/07/16 at 21:00 Bisacodyl (Dulcolax Supp) 10 mg PRN [place] ; Start 07/07/16 at 12:00 Carvedilol (Coreg) 3.125 mg BID GTB Last administered on 07/15/16 08:57; Admin Dose 3.125 MG; Start 07/07/16 at 21:00 Chlorhexidine Gluconate (Peridex) 15 ml Q12 MM Last administered on 07/15/16 08 :57; Admin Dose 15 ML; Start 07/07/16 at 21:00 Clonazepam (Klonopin) 0.5 mg TID GTB Last administered on 07/15/16 12:53; Admin Dose 0.5 MG; Start 07/07/16 at 13:00 Fentanyl (Duragesic 50 Mcg/Hr Patch) 1 patch Q72H TRANSDERM Last administered on 07/14/16 12:00; Admin Dose 1 PATCH; Start 07/08/16 at 12:00 Ferrous Sulfate (Feosol Liquid Cup) 330 mg BID GTB Last administered on 08:56; Admin Dose 330 MG; Start 07/07/16 at 21:00 Insulin Glargine (Lantus) 10 unit QHS SC Last administered on 07/14/16 21:08; Admin Dose 10 UNIT; Start 07/07/16 at 21:00 Lansoprazole (Prevacid) 30 mg DAILY GTB Last administered on 07/15/16 08:58; Admin Dose 30 MG; Start 07/08/16 at 09:00 Levalbuterol (Xopenex Neb) 0.63 mg Q6H PRN NEB WHEEZING AND SOB Last administered on 07/14/16 22:47; Admin Dose 0.63 MG; Start 07/07/16 at 12:00 Magnesium Hydroxide (Milk Of Mag) 30 ml DAILY PRN GTB CONSTIPATION; Start 07/07 at 12:00 Metoclopramide HCl (Reglan) 10 mg Q6 PRN GTB NAUSEA AND/OR VOMITING; Start at 17:00 Sodium Biphosphate/ Sodium Phosphate (Fleet Enema) 135 ml PRN PRN [place] severe constipation; Start 07/07/16 at 17:00 Quetiapine Fumarate (Seroquel) 12.5 mg DAILY GTB Last administered on 07/15/16 08:57; Admin Dose 12.5 MG; Start 07/08/16 at 09:00 Valsartan (Diovan) 80 mg DAILY GTB Last administered on 07/15/16 08:57; Admin Dose 80 MG; Start 07/08/16 at 09:00 Zinc Sulfate (Zinc Sulfate) 220 mg DAILY GTB Last administered on 07/15/16 08: 57; Admin Dose 220 MG; Start 07/08/16 at 09:00 Multivitamins (Thera-Plus) 5 ml DAILY GTB Last administered on 07/15/16 08:56; Admin Dose 5 ML; Start 07/08/16 at 09:00 Ascorbic Acid (Vitamin C) 500 mg DAILY GTB Last administered on 07/15/16 08:57 ; Admin Dose 500 MG; Start 07/08/16 at 09:00 Miscellaneous Information 1 ea NOTE XX ; Start 07/07/16 at 17:30 Glucose (Glutose) 15 gm Q15M PRN PO DECREASED GLUCOSE; Start 07/07/16 at 17:30 Glucose (Glutose) 22.5 gm Q15M PRN PO DECREASED GLUCOSE; Start 07/07/16 at 17: 30 Dextrose (D50w Syringe) 25 ml Q15M PRN IV DECREASED GLUCOSE; Start 07/07/16 at 17:30 Dextrose (D50w Syringe) 50 ml Q15M PRN IV DECREASED GLUCOSE; Start 07/07/16 at 17:30 Glucagon (Glucagen) 1 mg Q15M PRN IM DECREASED GLUCOSE; Start 07/07/16 at 17:30 Glucose (Glutose) 15 gm Q15M PRN BUCCAL DECREASED GLUCOSE; Start 07/07/16 at 17 :30 Sodium Hypochlorite (Dakin'S (1/4 Strength)) 1 applic QHS IRR Last administered on 07/14/16 21:09; Admin Dose 1 APPLIC; Start 07/11/16 at 21:00 Docusate Sodium (Colace Liquid Cup) 100 mg DAILY GTB Last administered on 08:56; Admin Dose 100 MG; Start 07/12/16 at 10:00 Linezolid (Zyvox) 600 mg BID PO Last administered on 07/15/16 08:57; Admin Dose 600 MG; Start 07/12/16 at 21:00 Amikacin Sulfate AMIKACIN PER PHARMACY NOTE XX ; Start 07/12/16 at 13:30 Amikacin Sulfate/ Sodium Chloride (Amikacin/NS) 104 ml @ 102 mls/hr Q36H IVPB Last administered on 07/15/16 16:40; Admin Dose 102 MLS/HR; Start 07/12/16 at 16: 00 Silver Sulfadiazine (Thermazene 1% 25 Gm) 1 applic DAILY TOP Last administered on 07/15/16 08:58; Admin Dose 1 APPLIC; Start 07/14/16 at 09:00 Insulin Aspart (Novolog Insulin Pen) NOVOLOG *MILD* ALGORI... Q6 SC Last administered on 07/15/16 17:29; Admin Dose 2 UNIT; Start 07/14/16 at 12:00 Metronidazole 500 mg 500 mg Q8 NGT Last administered on 07/15/16 12:54; Admin Dose 500 MG; Start 07/14/16 at 15:30 Ferric Sodium Gluconate Complex/ Sodium Chloride (Ferrlecit/NS) 110 ml @ 100 mls/hr Q24H IVPB Last administered on 07/15/16t 12:54; Admin Dose 100 MLS/HR; Start 07/15/16 at 13:00; Stop 07/17/16 at 14:05 INES TORRE MD Jul 15, 2016 17:48
[2016-07-15] MEDS: SODIUM HYPOCHLORITE 0.125% 473 ML BTL IRR SCH (21:23)
[2016-07-15] MEDS: INSULIN GLARGINE [LANtus] 3 ML PEN SC SCH (21:24)
[2016-07-16] VITALS (28 sets, daily range): BP systolic 127–158; BP diastolic 58–78; PULSE 81–95; RESP 16–33
[2016-07-16] MEDS: INSULIN ASPART [NOVOLOG] 3 ML PEN SC SCH ×5 (00:39→23:55)
[2016-07-16] MEDS: metroNIDAZOLE 500 MG TAB NGT SCH ×3 (05:50→21:44)
[2016-07-16 07:36] LABS: ADD SCAN DIFF NO
[2016-07-16 07:39] LABS: ABNORMAL IP MESSAGE 1; BASOPHIL # 0.1 10^3/ul (0.0-0.1); BASOPHILS % 0.4 % (0.0-2.0); EOSINOPHILS # 0.5 10^3/ul (0.0-0.5); EOSINOPHILS % 2.8 % (0.0-7.0); HEMATOCRIT 31.5 % (37.0-47.0); LYMPHOCYTES # 3.6 10^3/ul (0.8-2.9); LYMPHOCYTES % 20.1 % (15.0-51.0); MEAN CORPUSCULAR HEMOGLOBIN 26.6 pg (29.0-33.0); MEAN CORPUSCULAR HGB CONC 28.6 g/dl (32.0-37.0); MEAN CORPUSCULAR VOLUME 93.2 fl (82.0-101.0); MEAN PLATELET VOLUME 10.9 fl (7.4-10.4); MONOCYTE # 1.2 10^3/ul (0.3-0.9); NEUTROPHIL # 12.2 10^3/ul (1.6-7.5); NEUTROPHILS % 69.1 % (39.0-77.0); PLATELET COUNT 603 10^3/UL (140-415); RED BLOOD COUNT 3.38 10^6/ul (4.20-5.40); RED CELL DISTRIBUTION WIDTH 20.8 % (11.5-14.5); WHITE BLOOD COUNT 17.7 10^3/ul (4.8-10.8)
[2016-07-16 07:50] LABS: CALCIUM 9.5 mg/dl (8.4-10.2); CREATININE 0.54 mg/dl (0.44-1.00); POTASSIUM 4.5 mmol/L (3.5-5.1)
[2016-07-16] MEDS: COLISTIMETHATE (25 MG/ML INHAL SYG) NEB SCH ×2 (09:00→20:18)
[2016-07-16] MEDS: MULTIVITAMINS 5 ML CUP GTB SCH (10:44)
[2016-07-16] MEDS: FERROUS SULFATE 60 MG/ML 5ML CUP GTB SCH ×2 (10:44→21:44)
[2016-07-16] MEDS: DOCUSATE SODIUM 10 MG/ML (10ML CUP) GTB SCH (10:44)
[2016-07-16] MEDS: CHLORHEXIDINE GLUCONATE 15 ML UD CUP MM SCH ×2 (10:44→21:44)
[2016-07-16] MEDS: LANSOPRAZOLE 30 MG CAP GTB SCH (10:45)
[2016-07-16] MEDS: QUETIAPINE 25 MG TAB GTB SCH (10:45)
[2016-07-16] MEDS: ZINC SULFATE 220 MG CAP GTB SCH (10:45)
[2016-07-16] MEDS: ASCORBIC ACID 500 MG TAB GTB SCH (10:45)
[2016-07-16] MEDS: ZYVOX 600 MG TAB PO SCH ×2 (10:45→21:44)
[2016-07-16] MEDS: clonAZEPAM 0.5 MG TAB GTB SCH ×3 (10:46→21:44)
[2016-07-16] MEDS: VALSARTAN 80 MG TAB GTB SCH (10:47)
[2016-07-16] MEDS: APIXABAN 5 MG TABLET GTB SCH ×2 (10:48→21:44)
[2016-07-16] MEDS: SILVER SULFADIAZINE 1% 25 GM CR TOP SCH (10:50)
--- NOTE | 2016-07-16 11:50 | CONS ---
Date/Time of Note Date/Time of Note DATE: 07/16/16 TIME: 11:50 Assessment/Plan Assessment/Plan Chief Complaint/Hosp Course ID PROGRESS NOTE CURRENT ABX=> 1. Zyvox 2. Colistin inhalation. 3. Amikacin. 4. Flagyl 24H INTERVAL SUMMARY * Look comfortable, Trach, Peg, non-communicative, no fevers, WBC stable PHYSICAL EXAMINATION: GENERAL: VSS, NAD, Afebrile HEENT: Unremarkable NECK: Supple, trachea(+) secure CHEST: Rise symmetrical, without dyspnea on observation HEART: Pulse RRR ABDOMEN: Soft (+)Peg EXTREMITIES: Warm ->(+) Left foot gangrene ID ASSESSMENT 66 yo F admit with: 1. Persistent leukocytosis, likely 2 to #2 , rule out myelodysplasia. 2. Left foot gangrene with open wound culture growing multi-drug resistant organisms. * Wound culture grew Pseudomonas aeruginosa, Providencia stuartii, VRE 3. Chronic respiratory failure (+) Trach w/tracheobronchitis s/p HCAP * SPUTUM CX: RESPIRATORY CULTURE Final Organism 1 SERRATIA MARCESCENS QUANTITY 1+ Organism 2 PROTEUS MIRABILIS QUANTITY 1+ Organism 3 PSEUDOMONAS AERUGINOSA 4. Dysphagia. 5. Chronic encephalopathy. 6. Severe peripheral arterial and vascular disease, not a candidate for revascularization procedure per previous admission vascular note. 7. Diabetes. MRSA Nares -> INVASIVES: PIV, Trach, PEG, Rivera. ABX ALLERGY: None to ABX CURRENT ABX: 1. Zyvox 2. Colistin inhalation. 3. Amikacin. 4. Flagyl ID RECOMMENDATIONS 1. Continue current ABX 2. Observe over the weekend on ABX -> Reassess by ID team next week . Problems: Consultation Date/Type/Reason Admit Date/Time Jul 06, 2016 at 22:42 Initial Consult Date 07/12/16 Type of Consultation: ID Referring Provider: JOSR LORENZO MD Exam/Review of Systems Vital Signs Vitals Vital Signs Date Time Temp Pulse Resp B/P Pulse Ox O2 Delivery O2 Flow Rate FiO2 07/16/16 11:27 98.4 95 19 158/71 98 07/16/16 11:10 30 07/16/16 06:00 Mechanical Ventilator Intake and Output 07/15/16 07/15/16 07/16/16 15:00 23:00 07:00 Intake Total 960 ml 1060 ml Output Total 800 ml 800 ml Balance 160 ml 260 ml Results Result Diagram: 07/16/16 0607 07/16/16 0607 Results 24 hrs Laboratory Tests Test 07/15/16 12:25 07/15/16 17:02 07/15/16 21:18 07/16/16 00:36 Bedside Glucose 187 182 177 207 Test 07/16/16 05:49 07/16/16 06:07 Bedside Glucose 187 White Blood Count 17.7 H Red Blood Count 3.38 L Hemoglobin 9.0 L Hematocrit 31.5 L Mean Corpuscular Volume 93.2 Mean Corpuscular Hemoglobin 26.6 L Mean Corpuscular Hemoglobin Concent 28.6 L Red Cell Distribution Width 20.8 H Platelet Count 603 H Mean Platelet Volume 10.9 H Neutrophils % 69.1 Lymphocytes % 20.1 Monocytes % 7.0 Eosinophils % 2.8 Basophils % 0.4 Nucleated Red Blood Cells % 0.0 Neutrophils # 12.2 H Lymphocytes # 3.6 H Monocytes # 1.2 H Eosinophils # 0.5 Basophils # 0.1 Nucleated Red Blood Cells # 0.0 Sodium Level 135 Potassium Level 4.5 Chloride Level 96 L Carbon Dioxide Level 33 H Anion Gap 11 Blood Urea Nitrogen 23 H Creatinine 0.54 Glucose Level 169 Calcium Level 9.5 Medications Medications Current Medications Acetaminophen (Tylenol Tab) 650 mg Q6 PRN GTB PAIN Last administered on 06:19; Admin Dose 650 MG; Start 07/07/16 at 12:00 Apixaban (Eliquis) 5 mg BID GTB Last administered on 07/16/16 10:48; Admin Dose 5 MG; Start 07/07/16 at 21:00 Bisacodyl (Dulcolax Supp) 10 mg PRN MD ; Start 07/07/16 at 12:00 Carvedilol (Coreg) 3.125 mg BID GTB Last administered on 07/16/16 10:47; Admin Dose 3.125 MG; Start 07/07/16 at 21:00 Chlorhexidine Gluconate (Peridex) 15 ml Q12 MM Last administered on 07/16/16 10 :44; Admin Dose 15 ML; Start 07/07/16 at 21:00 Clonazepam (Klonopin) 0.5 mg TID GTB Last administered on 07/16/16 10:46; Admin Dose 0.5 MG; Start 07/07/16 at 13:00 Fentanyl (Duragesic 50 Mcg/Hr Patch) 1 patch Q72H TRANSDERM Last administered on 07/14/16 12:00; Admin Dose 1 PATCH; Start 07/08/16 at 12:00 Ferrous Sulfate (Feosol Liquid Cup) 330 mg BID GTB Last administered on 10:44; Admin Dose 330 MG; Start 07/07/16 at 21:00 Insulin Glargine (Lantus) 10 unit QHS SC Last administered on 07/15/16 21:24; Admin Dose 10 UNIT; Start 07/07/16 at 21:00 Lansoprazole (Prevacid) 30 mg DAILY GTB Last administered on 07/16/16 10:45; Admin Dose 30 MG; Start 07/08/16 at 09:00 Levalbuterol (Xopenex Neb) 0.63 mg Q6H PRN NEB WHEEZING AND SOB Last administered on 07/14/16 22:47; Admin Dose 0.63 MG; Start 07/07/16 at 12:00 Magnesium Hydroxide (Milk Of Mag) 30 ml DAILY PRN GTB CONSTIPATION; Start 07/07 at 12:00 Metoclopramide HCl (Reglan) 10 mg Q6 PRN GTB NAUSEA AND/OR VOMITING; Start at 17:00 Sodium Biphosphate/ Sodium Phosphate (Fleet Enema) 135 ml PRN PRN MD severe constipation; Start 07/07/16 at 17:00 Quetiapine Fumarate (Seroquel) 12.5 mg DAILY GTB Last administered on 07/16/16 10:45; Admin Dose 12.5 MG; Start 07/08/16 at 09:00 Valsartan (Diovan) 80 mg DAILY GTB Last administered on 07/16/16 10:47; Admin Dose 80 MG; Start 07/08/16 at 09:00 Zinc Sulfate (Zinc Sulfate) 220 mg DAILY GTB Last administered on 07/16/16 10: 45; Admin Dose 220 MG; Start 07/08/16 at 09:00 Multivitamins (Thera-Plus) 5 ml DAILY GTB Last administered on 07/16/16 10:44; Admin Dose 5 ML; Start 07/08/16 at 09:00 Ascorbic Acid (Vitamin C) 500 mg DAILY GTB Last administered on 07/16/16 10:45 ; Admin Dose 500 MG; Start 07/08/16 at 09:00 Miscellaneous Information 1 ea NOTE XX ; Start 07/07/16 at 17:30 Glucose (Glutose) 15 gm Q15M PRN PO DECREASED GLUCOSE; Start 07/07/16 at 17:30 Glucose (Glutose) 22.5 gm Q15M PRN PO DECREASED GLUCOSE; Start 07/07/16 at 17: 30 Dextrose (D50w Syringe) 25 ml Q15M PRN IV DECREASED GLUCOSE; Start 07/07/16 at 17:30 Dextrose (D50w Syringe) 50 ml Q15M PRN IV DECREASED GLUCOSE; Start 07/07/16 at 17:30 Glucagon (Glucagen) 1 mg Q15M PRN IM DECREASED GLUCOSE; Start 07/07/16 at 17:30 Glucose (Glutose) 15 gm Q15M PRN BUCCAL DECREASED GLUCOSE; Start 07/07/16 at 17 :30 Sodium Hypochlorite (Dakin'S (1/4 Strength)) 1 applic QHS IRR Last administered on 07/15/16 21:23; Admin Dose 1 APPLIC; Start 07/11/16 at 21:00 Docusate Sodium (Colace Liquid Cup) 100 mg DAILY GTB Last administered on 10:44; Admin Dose 100 MG; Start 07/12/16 at 10:00 Linezolid (Zyvox) 600 mg BID PO Last administered on 07/16/16 10:45; Admin Dose 600 MG; Start 07/12/16 at 21:00 Amikacin Sulfate AMIKACIN PER PHARMACY NOTE XX ; Start 07/12/16 at 13:30 Amikacin Sulfate/ Sodium Chloride (Amikacin/NS) 104 ml @ 102 mls/hr Q36H IVPB Last administered on 07/15/16 16:40; Admin Dose 102 MLS/HR; Start 07/12/16 at 16: 00 Silver Sulfadiazine (Thermazene 1% 25 Gm) 1 applic DAILY TOP Last administered on 07/16/16 10:50; Admin Dose 1 APPLIC; Start 07/14/16 at 09:00 Insulin Aspart (Novolog Insulin Pen) NOVOLOG *MILD* ALGORI... Q6 SC Last administered on 07/16/16 05:52; Admin Dose 2 UNIT; Start 07/14/16 at 12:00 Metronidazole 500 mg 500 mg Q8 NGT Last administered on 07/16/16 05:50; Admin Dose 500 MG; Start 07/14/16 at 15:30 Ferric Sodium Gluconate Complex/ Sodium Chloride (Ferrlecit/NS) 110 ml @ 100 mls/hr Q24H IVPB Last administered on 07/15/16 12:54; Admin Dose 100 MLS/HR; Start 07/15/16 at 13:00; Stop 07/17/16 at 14:05 AZUCENA NEFF [employer] Jul 16, 2016 11:50
--- NOTE | 2016-07-16 12:20 | PN ---
Date/Time of Note Date/Time of Note DATE: 07/16/16 TIME: 12:18 Assessment/Plan Lines/Catheters IV C[facility]ter Type (from [facility] Saline Lock Urinary Cath still in place: Yes Assessment/Plan Assessment/Plan 1. Acute on chronic respiratory failure secondary to pneumonia. Dr. Mcbride is following in pulmonology consultation. Continue ventilator support and bronchodilators. 2. Sepsis, resolving. continue broad-spectrum antibiotics. Dr. Hernadez is following in infectious disease consultation. 3. Acute anemia, with a drop in hemoglobin to 6.9. Status post blood transfusion. Dr. Dwod is following in gastroenterology consultation, stool for OB is negative. Dr. Storey is following patient in hematology consultation. 4. 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 Dr. Sanchez is following in podiatry consultation 5. History of CVA with left-sided hemiplegia. 6. Cardiomyopathy, with an ejection fraction of 45%. 7. Diastolic dysfunction congestive heart failure. 8. Chronic pain syndrome. 9. Ventilator-dependent respiratory failure with tracheostomy. 10. Dysphagia with G-tube placement. 11. Multiple wounds present on admission. 12. Prevacid for GI prophylaxis 13. SCD for deep venous thrombosis prophylaxis. Further recommendations based on clinical course. Plan of care discussed with Dr. Suarez. Further recommendations based on clinical course. Plan of care discussed with Dr. Suarez. Subjective 24 Hr Interval Summary Free Text/Dictation afebrile, tolerating GT, seems comfortable, dw staff Constitutional: requiring IVF, requiring O2 Exam/Review of Systems Vital Signs Vitals Vital Signs Date Time Temp Pulse Resp B/P Pulse Ox O2 Delivery O2 Flow Rate FiO2 07/16/16 11:27 98.4 95 19 158/71 98 07/16/16 11:10 30 07/16/16 06:00 Mechanical Ventilator Intake and Output 07/15/16 07/15/16 07/16/16 15:00 23:00 07:00 Intake Total 960 ml 1060 ml Output Total 800 ml 800 ml Balance 160 ml 260 ml Results Result Diagram: 07/16/16 0607 07/16/16 0607 Results 24 hrs Laboratory Tests Test 07/15/16 12:25 07/15/16 17:02 07/15/16 21:18 07/16/16 00:36 Bedside Glucose 187 182 177 207 Test 07/16/16 05:49 07/16/16 06:07 Bedside Glucose 187 White Blood Count 17.7 H Red Blood Count 3.38 L Hemoglobin 9.0 L Hematocrit 31.5 L Mean Corpuscular Volume 93.2 Mean Corpuscular Hemoglobin 26.6 L Mean Corpuscular Hemoglobin Concent 28.6 L Red Cell Distribution Width 20.8 H Platelet Count 603 H Mean Platelet Volume 10.9 H Neutrophils % 69.1 Lymphocytes % 20.1 Monocytes % 7.0 Eosinophils % 2.8 Basophils % 0.4 Nucleated Red Blood Cells % 0.0 Neutrophils # 12.2 H Lymphocytes # 3.6 H Monocytes # 1.2 H Eosinophils # 0.5 Basophils # 0.1 Nucleated Red Blood Cells # 0.0 Sodium Level 135 Potassium Level 4.5 Chloride Level 96 L Carbon Dioxide Level 33 H Anion Gap 11 Blood Urea Nitrogen 23 H Creatinine 0.54 Glucose Level 169 Calcium Level 9.5 Medications Medications Current Medications Acetaminophen (Tylenol Tab) 650 mg Q6 PRN GTB PAIN Last administered on 06:19; Admin Dose 650 MG; Start 07/07/16 at 12:00 Apixaban (Eliquis) 5 mg BID GTB Last administered on 07/16/16 10:48; Admin Dose 5 MG; Start 07/07/16 at 21:00 Bisacodyl (Dulcolax Supp) 10 mg PRN GA ; Start 07/07/16 at 12:00 Carvedilol (Coreg) 3.125 mg BID GTB Last administered on 07/16/16 10:47; Admin Dose 3.125 MG; Start 07/07/16 at 21:00 Chlorhexidine Gluconate (Peridex) 15 ml Q12 MM Last administered on 07/16/16 10 :44; Admin Dose 15 ML; Start 07/07/16 at 21:00 Clonazepam (Klonopin) 0.5 mg TID GTB Last administered on 07/16/16 10:46; Admin Dose 0.5 MG; Start 07/07/16 at 13:00 Fentanyl (Duragesic 50 Mcg/Hr Patch) 1 patch Q72H TRANSDERM Last administered on 07/14/16 12:00; Admin Dose 1 PATCH; Start 07/08/16 at 12:00 Ferrous Sulfate (Feosol Liquid Cup) 330 mg BID GTB Last administered on 10:44; Admin Dose 330 MG; Start 07/07/16 at 21:00 Insulin Glargine (Lantus) 10 unit QHS SC Last administered on 07/15/16 21:24; Admin Dose 10 UNIT; Start 07/07/16 at 21:00 Lansoprazole (Prevacid) 30 mg DAILY GTB Last administered on 07/16/16 10:45; Admin Dose 30 MG; Start 07/08/16 at 09:00 Levalbuterol (Xopenex Neb) 0.63 mg Q6H PRN NEB WHEEZING AND SOB Last administered on 07/14/16 22:47; Admin Dose 0.63 MG; Start 07/07/16 at 12:00 Magnesium Hydroxide (Milk Of Mag) 30 ml DAILY PRN GTB CONSTIPATION; Start 07/07 at 12:00 Metoclopramide HCl (Reglan) 10 mg Q6 PRN GTB NAUSEA AND/OR VOMITING; Start at 17:00 Sodium Biphosphate/ Sodium Phosphate (Fleet Enema) 135 ml PRN PRN GA severe constipation; Start 07/07/16 at 17:00 Quetiapine Fumarate (Seroquel) 12.5 mg DAILY GTB Last administered on 07/16/16 10:45; Admin Dose 12.5 MG; Start 07/08/16 at 09:00 Valsartan (Diovan) 80 mg DAILY GTB Last administered on 07/16/16 10:47; Admin Dose 80 MG; Start 07/08/16 at 09:00 Zinc Sulfate (Zinc Sulfate) 220 mg DAILY GTB Last administered on 07/16/16 10: 45; Admin Dose 220 MG; Start 07/08/16 at 09:00 Multivitamins (Thera-Plus) 5 ml DAILY GTB Last administered on 07/16/16 10:44; Admin Dose 5 ML; Start 07/08/16 at 09:00 Ascorbic Acid (Vitamin C) 500 mg DAILY GTB Last administered on 07/16/16 10:45 ; Admin Dose 500 MG; Start 07/08/16 at 09:00 Miscellaneous Information 1 ea NOTE XX ; Start 07/07/16 at 17:30 Glucose (Glutose) 15 gm Q15M PRN PO DECREASED GLUCOSE; Start 07/07/16 at 17:30 Glucose (Glutose) 22.5 gm Q15M PRN PO DECREASED GLUCOSE; Start 07/07/16 at 17: 30 Dextrose (D50w Syringe) 25 ml Q15M PRN IV DECREASED GLUCOSE; Start 07/07/16 at 17:30 Dextrose (D50w Syringe) 50 ml Q15M PRN IV DECREASED GLUCOSE; Start 07/07/16 at 17:30 Glucagon (Glucagen) 1 mg Q15M PRN IM DECREASED GLUCOSE; Start 07/07/16 at 17:30 Glucose (Glutose) 15 gm Q15M PRN BUCCAL DECREASED GLUCOSE; Start 07/07/16 at 17 :30 Sodium Hypochlorite (Dakin'S (04/13 Strength)) 1 applic QHS IRR Last administered on 07/15/16 21:23; Admin Dose 1 APPLIC; Start 07/11/16 at 21:00 Docusate Sodium (Colace Liquid Cup) 100 mg DAILY GTB Last administered on 10:44; Admin Dose 100 MG; Start 07/12/16 at 10:00 Linezolid (Zyvox) 600 mg BID PO Last administered on 07/16/16 10:45; Admin Dose 600 MG; Start 07/12/16 at 21:00 Amikacin Sulfate AMIKACIN PER PHARMACY NOTE XX ; Start 07/12/16 at 13:30 Amikacin Sulfate/ Sodium Chloride (Amikacin/NS) 104 ml @ 102 mls/hr Q36H IVPB Last administered on 07/15/16 16:40; Admin Dose 102 MLS/HR; Start 07/12/16 at 16: 00 Silver Sulfadiazine (Thermazene 1% 25 Gm) 1 applic DAILY TOP Last administered on 07/16/16 10:50; Admin Dose 1 APPLIC; Start 07/14/16 at 09:00 Insulin Aspart (Novolog Insulin Pen) NOVOLOG *MILD* ALGORI... Q6 SC Last administered on 07/16/16 05:52; Admin Dose 2 UNIT; Start 07/14/16 at 12:00 Metronidazole 500 mg 500 mg Q8 NGT Last administered on 07/16/16 05:50; Admin Dose 500 MG; Start 07/14/16 at 15:30 Ferric Sodium Gluconate Complex/ Sodium Chloride (Ferrlecit/NS) 110 ml @ 100 mls/hr Q24H IVPB Last administered on 07/15/16t 12:54; Admin Dose 100 MLS/HR; Start 07/15/16 at 13:00; Stop 07/17/16 at 14:05 JUAN POSADA Jul 16, 2016 12:20
[2016-07-16] MEDS: SOD FERRIC GLUC COMPLX 125 MG in SOD CHLORIDE 0.9% 100 ML IVPB SCH (14:14)
--- NOTE | 2016-07-16 19:28 | CONS ---
Date/Time of Note Date/Time of Note DATE: 07/16/16 TIME: 19:27 Consult Date/Type/Reason Admit Date/Time Jul 06, 2016 at 22:42 Initial Consult Date 07/07/16 Type of Consultation: Pulm Ordering Provider: JOSR LORENZO MD Subjective no events. Objective Vital Signs Date Time Temp Pulse Resp B/P Pulse Ox O2 Delivery O2 Flow Rate FiO2 07/16/16 17:00 93 16 98 30 07/16/16 15:56 98.4 142/62 07/16/16 06:00 Mechanical Ventilator Intake and Output 07/15/16 07/15/16 07/16/16 15:00 23:00 07:00 Intake Total 960 ml 1060 ml Output Total 800 ml 800 ml Balance 160 ml 260 ml Exam HEENT: Neck supple; no JVD; no LAD, trach site CVS: RRR, S1 and S2 CHEST: Clear ABD: Soft, NT, + BS EXT: No c/c; + edema Results/Medications Result Diagram: 07/16/16 0607 07/16/16 0607 Results 24 hrs Laboratory Tests Test 07/15/16 21:18 07/16/16 00:36 07/16/16 05:49 07/16/16 06:07 Bedside Glucose 177 207 187 White Blood Count 17.7 H Red Blood Count 3.38 L Hemoglobin 9.0 L Hematocrit 31.5 L Mean Corpuscular Volume 93.2 Mean Corpuscular Hemoglobin 26.6 L Mean Corpuscular Hemoglobin Concent 28.6 L Red Cell Distribution Width 20.8 H Platelet Count 603 H Mean Platelet Volume 10.9 H Neutrophils % 69.1 Lymphocytes % 20.1 Monocytes % 7.0 Eosinophils % 2.8 Basophils % 0.4 Nucleated Red Blood Cells % 0.0 Neutrophils # 12.2 H Lymphocytes # 3.6 H Monocytes # 1.2 H Eosinophils # 0.5 Basophils # 0.1 Nucleated Red Blood Cells # 0.0 Sodium Level 135 Potassium Level 4.5 Chloride Level 96 L Carbon Dioxide Level 33 H Anion Gap 11 Blood Urea Nitrogen 23 H Creatinine 0.54 Glucose Level 169 Calcium Level 9.5 Test 07/16/16 12:17 07/16/16 18:41 Bedside Glucose 176 186 Medications Current Medications Acetaminophen (Tylenol Tab) 650 mg Q6 PRN GTB PAIN Last administered on 06:19; Admin Dose 650 MG; Start 07/07/16 at 12:00 Apixaban (Eliquis) 5 mg BID GTB Last administered on 07/16/16 10:48; Admin Dose 5 MG; Start 07/07/16 at 21:00 Bisacodyl (Dulcolax Supp) 10 mg PRN [place] ; Start 07/07/16 at 12:00 Carvedilol (Coreg) 3.125 mg BID GTB Last administered on 07/16/16 10:47; Admin Dose 3.125 MG; Start 07/07/16 at 21:00 Chlorhexidine Gluconate (Peridex) 15 ml Q12 MM Last administered on 07/16/16 10 :44; Admin Dose 15 ML; Start 07/07/16 at 21:00 Clonazepam (Klonopin) 0.5 mg TID GTB Last administered on 07/16/16 14:14; Admin Dose 0.5 MG; Start 07/07/16 at 13:00 Fentanyl (Duragesic 50 Mcg/Hr Patch) 1 patch Q72H TRANSDERM Last administered on 07/14/16 12:00; Admin Dose 1 PATCH; Start 07/08/16 at 12:00 Ferrous Sulfate (Feosol Liquid Cup) 330 mg BID GTB Last administered on 10:44; Admin Dose 330 MG; Start 07/07/16 at 21:00 Insulin Glargine (Lantus) 10 unit QHS SC Last administered on 07/15/16 21:24; Admin Dose 10 UNIT; Start 07/07/16 at 21:00 Lansoprazole (Prevacid) 30 mg DAILY GTB Last administered on 07/16/16 10:45; Admin Dose 30 MG; Start 07/08/16 at 09:00 Levalbuterol (Xopenex Neb) 0.63 mg Q6H PRN NEB WHEEZING AND SOB Last administered on 07/14/16 22:47; Admin Dose 0.63 MG; Start 07/07/16 at 12:00 Magnesium Hydroxide (Milk Of Mag) 30 ml DAILY PRN GTB CONSTIPATION; Start 07/07 at 12:00 Metoclopramide HCl (Reglan) 10 mg Q6 PRN GTB NAUSEA AND/OR VOMITING; Start at 17:00 Sodium Biphosphate/ Sodium Phosphate (Fleet Enema) 135 ml PRN PRN [place] severe constipation; Start 07/07/16 at 17:00 Quetiapine Fumarate (Seroquel) 12.5 mg DAILY GTB Last administered on 07/16/16 10:45; Admin Dose 12.5 MG; Start 07/08/16 at 09:00 Valsartan (Diovan) 80 mg DAILY GTB Last administered on 07/16/16 10:47; Admin Dose 80 MG; Start 07/08/16 at 09:00 Zinc Sulfate (Zinc Sulfate) 220 mg DAILY GTB Last administered on 07/16/16 10: 45; Admin Dose 220 MG; Start 07/08/16 at 09:00 Multivitamins (Thera-Plus) 5 ml DAILY GTB Last administered on 07/16/16 10:44; Admin Dose 5 ML; Start 07/08/16 at 09:00 Ascorbic Acid (Vitamin C) 500 mg DAILY GTB Last administered on 07/16/16 10:45 ; Admin Dose 500 MG; Start 07/08/16 at 09:00 Miscellaneous Information 1 ea NOTE XX ; Start 07/07/16 at 17:30 Glucose (Glutose) 15 gm Q15M PRN PO DECREASED GLUCOSE; Start 07/07/16 at 17:30 Glucose (Glutose) 22.5 gm Q15M PRN PO DECREASED GLUCOSE; Start 07/07/16 at 17: 30 Dextrose (D50w Syringe) 25 ml Q15M PRN IV DECREASED GLUCOSE; Start 07/07/16 at 17:30 Dextrose (D50w Syringe) 50 ml Q15M PRN IV DECREASED GLUCOSE; Start 07/07/16 at 17:30 Glucagon (Glucagen) 1 mg Q15M PRN IM DECREASED GLUCOSE; Start 07/07/16 at 17:30 Glucose (Glutose) 15 gm Q15M PRN BUCCAL DECREASED GLUCOSE; Start 07/07/16 at 17 :30 Sodium Hypochlorite (Dakin'S (1/4 Strength)) 1 applic QHS IRR Last administered on 07/15/16 21:23; Admin Dose 1 APPLIC; Start 07/11/16 at 21:00 Docusate Sodium (Colace Liquid Cup) 100 mg DAILY GTB Last administered on 10:44; Admin Dose 100 MG; Start 07/12/16 at 10:00 Linezolid (Zyvox) 600 mg BID PO Last administered on 07/16/16 10:45; Admin Dose 600 MG; Start 07/12/16 at 21:00 Amikacin Sulfate AMIKACIN PER PHARMACY NOTE XX ; Start 07/12/16 at 13:30 Amikacin Sulfate/ Sodium Chloride (Amikacin/NS) 104 ml @ 102 mls/hr Q36H IVPB Last administered on 07/15/16 16:40; Admin Dose 102 MLS/HR; Start 07/12/16 at 16: 00 Silver Sulfadiazine (Thermazene 1% 25 Gm) 1 applic DAILY TOP Last administered on 07/16/16 10:50; Admin Dose 1 APPLIC; Start 07/14/16 at 09:00 Insulin Aspart (Novolog Insulin Pen) NOVOLOG *MILD* ALGORI... Q6 SC Last administered on 07/16/16 18:49; Admin Dose 2 UNIT; Start 07/14/16 at 12:00 Metronidazole 500 mg 500 mg Q8 NGT Last administered on 07/16/16 14:14; Admin Dose 500 MG; Start 07/14/16 at 15:30 Ferric Sodium Gluconate Complex/ Sodium Chloride (Ferrlecit/NS) 110 ml @ 100 mls/hr Q24H IVPB Last administered on 07/16/16 14:14; Admin Dose 100 MLS/HR; Start 07/15/16 at 13:00; Stop 07/17/16 at 14:05 Assessment/Plan Additional Assessment/Plan IMP: 1. Vent dependent respiratory failure 2. History of CVA with hemiplegia 3. History of encephalopathy chronic secondary to above 4. Leukocytosis 5. Anemia evidenceel 6. History of dysphagia with G-tube 7. History of atrial fibrillation RECS: 1. BD's/CPT 2. Am labs 3. Vent support JACK DSOUZA MD Jul 16, 2016 19:28
[2016-07-16] MEDS: SODIUM HYPOCHLORITE 0.125% 473 ML BTL IRR SCH (21:44)
[2016-07-16] MEDS: INSULIN GLARGINE [LANtus] 3 ML PEN SC SCH (21:51)
[2016-07-17] VITALS (28 sets, daily range): BP systolic 109–164; BP diastolic 55–92; PULSE 78–100; RESP 13–30
[2016-07-17] MEDS: metroNIDAZOLE 500 MG TAB NGT SCH ×3 (04:49→21:32)
[2016-07-17] MEDS: ACETAMINOPHEN 325 MG TAB GTB PRN (04:49)
[2016-07-17] MEDS: AMIKACIN 1,000 MG in SOD CHLORIDE 0.9% 100 ML IVPB SCH (04:49)
[2016-07-17] MEDS: INSULIN ASPART [NOVOLOG] 3 ML PEN SC SCH ×4 (05:08→23:20)
[2016-07-17] MEDS: DOCUSATE SODIUM 10 MG/ML (10ML CUP) GTB SCH (05:22)
[2016-07-17 06:25] LABS: ADD SCAN DIFF NO
[2016-07-17 06:41] LABS: BASOPHIL # 0.1 10^3/ul (0.0-0.1); BASOPHILS % 0.4 % (0.0-2.0); EOSINOPHILS # 0.3 10^3/ul (0.0-0.5); EOSINOPHILS % 1.9 % (0.0-7.0); HEMATOCRIT 31.6 % (37.0-47.0); HEMOGLOBIN 9.4 g/dl (12.0-16.0); LYMPHOCYTES # 3.3 10^3/ul (0.8-2.9); LYMPHOCYTES % 20.9 % (15.0-51.0); MEAN CORPUSCULAR HGB CONC 29.7 g/dl (32.0-37.0); MEAN CORPUSCULAR VOLUME 90.8 fl (82.0-101.0); MEAN PLATELET VOLUME 10.8 fl (7.4-10.4); MONOCYTE # 1.2 10^3/ul (0.3-0.9); MONOCYTES % 7.5 % (0.0-11.0); NEUTROPHIL # 10.7 10^3/ul (1.6-7.5); NEUTROPHILS % 68.6 % (39.0-77.0); PLATELET COUNT 636 10^3/UL (140-415); RED BLOOD COUNT 3.48 10^6/ul (4.20-5.40); RED CELL DISTRIBUTION WIDTH 20.6 % (11.5-14.5); WHITE BLOOD COUNT 15.5 10^3/ul (4.8-10.8)
[2016-07-17 06:54] LABS: CREATININE 0.56 mg/dl (0.44-1.00)
[2016-07-17 06:55] LABS: CALCIUM 9.6 mg/dl (8.4-10.2)
[2016-07-17] MEDS: QUETIAPINE 25 MG TAB GTB SCH (09:17)
[2016-07-17] MEDS: ZINC SULFATE 220 MG CAP GTB SCH (09:17)
[2016-07-17] MEDS: ZYVOX 600 MG TAB PO SCH ×2 (09:17→21:00)
[2016-07-17] MEDS: clonAZEPAM 0.5 MG TAB GTB SCH ×3 (09:17→21:32)
[2016-07-17] MEDS: MULTIVITAMINS 5 ML CUP GTB SCH (09:17)
[2016-07-17] MEDS: LANSOPRAZOLE 30 MG CAP GTB SCH (09:17)
[2016-07-17] MEDS: APIXABAN 5 MG TABLET GTB SCH ×2 (09:18→21:31)
[2016-07-17] MEDS: VALSARTAN 80 MG TAB GTB SCH (09:18)
[2016-07-17] MEDS: ASCORBIC ACID 500 MG TAB GTB SCH (09:18)
[2016-07-17] MEDS: CHLORHEXIDINE GLUCONATE 15 ML UD CUP MM SCH ×2 (09:18→21:31)
[2016-07-17] MEDS: FERROUS SULFATE 60 MG/ML 5ML CUP GTB SCH ×2 (09:19→21:31)
[2016-07-17] MEDS: COLISTIMETHATE (25 MG/ML INHAL SYG) NEB SCH ×2 (10:07→19:26)
[2016-07-17] MEDS: SILVER SULFADIAZINE 1% 25 GM CR TOP SCH (11:49)
[2016-07-17] MEDS: SOD FERRIC GLUC COMPLX 125 MG in SOD CHLORIDE 0.9% 100 ML IVPB SCH (13:03)
[2016-07-17] MEDS: FENTAnyl PATCH 50 MCG/HR TRANSDERM SCH (13:17)
--- NOTE | 2016-07-17 15:01 | PN ---
Date/Time of Note Date/Time of Note DATE: 07/17/16 TIME: 14:59 Assessment/Plan Lines/Catheters IV Catheter Type (from [facility]): Peripheral IV Urinary Cath still in place: Yes Assessment/Plan Assessment/Plan 1. Acute on chronic respiratory failure secondary to pneumonia. Dr. Mcbride is following in pulmonology consultation. Continue ventilator support and bronchodilators. 2. Sepsis, resolving. continue broad-spectrum antibiotics. Dr. Hernadez is following in infectious disease consultation. 3. Acute anemia, with a drop in hemoglobin to 6.9. Status post blood transfusion. Dr. Dowd is following in gastroenterology consultation, stool for OB is negative. Dr. Storey is following patient in hematology consultation. 4. 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 Dr. Sanchez is following in podiatry consultation 5. History of CVA with left-sided hemiplegia. 6. Cardiomyopathy, with an ejection fraction of 45%. 7. Diastolic dysfunction congestive heart failure. 8. Chronic pain syndrome. 9. Ventilator-dependent respiratory failure with tracheostomy. 10. Dysphagia with G-tube placement. 11. Multiple wounds present on admission. 12. Prevacid for GI prophylaxis 13. SCD for deep venous thrombosis prophylaxis. Further recommendations based on clinical course. Plan of care discussed with Dr. Suarez. Further recommendations based on clinical course. Plan of care discussed with Dr. Suarez. Subjective 24 Hr Interval Summary Constitutional: requiring IVF, requiring O2 Exam/Review of Systems Vital Signs Vitals Vital Signs Date Time Temp Pulse Resp B/P Pulse Ox O2 Delivery O2 Flow Rate FiO2 07/17/16 13:15 101 13 97 30 07/17/16 10:42 99.1 142/62 07/17/16 06:05 Mechanical Ventilator Intake and Output 07/16/16 07/16/16 07/17/16 15:00 23:00 07:00 Intake Total 1080 ml 1274 ml Output Total 875 ml 1700 ml Balance 205 ml -426 ml Exam Constitutional: well developed Psych: nl mood/affect Eyes: nl sclera Neck: non-tender Respiratory: diminished breath sounds Cardiovascular: nl pulses Gastrointestinal: non-tender, soft Musculoskeletal: other Neurological: lethargic Skin: other Lymph: nontender Results Result Diagram: 07/17/16 0550 07/17/16 0550 Results 24 hrs Laboratory Tests Test 07/16/16 18:41 07/16/16 23:51 07/17/16 05:50 07/17/16 11:47 Bedside Glucose 186 207 214 White Blood Count 15.5 H Red Blood Count 3.48 L Hemoglobin 9.4 L Hematocrit 31.6 L Mean Corpuscular Volume 90.8 Mean Corpuscular Hemoglobin 27.0 L Mean Corpuscular Hemoglobin Concent 29.7 L Red Cell Distribution Width 20.6 H Platelet Count 636 H Mean Platelet Volume 10.8 H Neutrophils % 68.6 Lymphocytes % 20.9 Monocytes % 7.5 Eosinophils % 1.9 Basophils % 0.4 Nucleated Red Blood Cells % 0.0 Neutrophils # 10.7 H Lymphocytes # 3.3 H Monocytes # 1.2 H Eosinophils # 0.3 Basophils # 0.1 Nucleated Red Blood Cells # 0.0 Sodium Level 136 Potassium Level 4.0 Chloride Level 94 L Carbon Dioxide Level 30 Anion Gap 16 Blood Urea Nitrogen 20 Creatinine 0.56 Glucose Level 205 Calcium Level 9.6 Medications Medications Current Medications Acetaminophen (Tylenol Tab) 650 mg Q6 PRN GTB PAIN Last administered on 04:49; Admin Dose 650 MG; Start 07/07/16 at 12:00 Apixaban (Eliquis) 5 mg BID GTB Last administered on 07/17/16 09:18; Admin Dose 5 MG; Start 07/07/16 at 21:00 Bisacodyl (Dulcolax Supp) 10 mg PRN [place] ; Start 07/07/16 at 12:00 Carvedilol (Coreg) 3.125 mg BID GTB Last administered on 07/17/16 09:19; Admin Dose 3.125 MG; Start 07/07/16 at 21:00 Chlorhexidine Gluconate (Peridex) 15 ml Q12 MM Last administered on 07/17/16 09 :18; Admin Dose 15 ML; Start 07/07/16 at 21:00 Clonazepam (Klonopin) 0.5 mg TID GTB Last administered on 07/17/16 13:04; Admin Dose 0.5 MG; Start 07/07/16 at 13:00 Fentanyl (Duragesic 50 Mcg/Hr Patch) 1 patch Q72H TRANSDERM Last administered on 07/17/16 13:17; Admin Dose 1 PATCH; Start 07/08/16 at 12:00 Ferrous Sulfate (Feosol Liquid Cup) 330 mg BID GTB Last administered on 09:19; Admin Dose 330 MG; Start 07/07/16 at 21:00 Insulin Glargine (Lantus) 10 unit QHS SC Last administered on 07/16/16 21:51; Admin Dose 10 UNIT; Start 07/07/16 at 21:00 Lansoprazole (Prevacid) 30 mg DAILY GTB Last administered on 07/17/16 09:17; Admin Dose 30 MG; Start 07/08/16 at 09:00 Levalbuterol (Xopenex Neb) 0.63 mg Q6H PRN NEB WHEEZING AND SOB Last administered on 07/14/16 22:47; Admin Dose 0.63 MG; Start 07/07/16 at 12:00 Magnesium Hydroxide (Milk Of Mag) 30 ml DAILY PRN GTB CONSTIPATION; Start 07/07 at 12:00 Metoclopramide HCl (Reglan) 10 mg Q6 PRN GTB NAUSEA AND/OR VOMITING; Start at 17:00 Sodium Biphosphate/ Sodium Phosphate (Fleet Enema) 135 ml PRN PRN [place] severe constipation; Start 07/07/16 at 17:00 Quetiapine Fumarate (Seroquel) 12.5 mg DAILY GTB Last administered on 07/17/16 09:17; Admin Dose 12.5 MG; Start 07/08/16 at 09:00 Valsartan (Diovan) 80 mg DAILY GTB Last administered on 07/17/16 09:18; Admin Dose 80 MG; Start 07/08/16 at 09:00 Zinc Sulfate (Zinc Sulfate) 220 mg DAILY GTB Last administered on 07/17/16 09: 17; Admin Dose 220 MG; Start 07/08/16 at 09:00 Multivitamins (Thera-Plus) 5 ml DAILY GTB Last administered on 07/17/16 09:17; Admin Dose 5 ML; Start 07/08/16 at 09:00 Ascorbic Acid (Vitamin C) 500 mg DAILY GTB Last administered on 07/17/16 09:18 ; Admin Dose 500 MG; Start 07/08/16 at 09:00 Miscellaneous Information 1 ea NOTE XX ; Start 07/07/16 at 17:30 Glucose (Glutose) 15 gm Q15M PRN PO DECREASED GLUCOSE; Start 07/07/16 at 17:30 Glucose (Glutose) 22.5 gm Q15M PRN PO DECREASED GLUCOSE; Start 07/07/16 at 17: 30 Dextrose (D50w Syringe) 25 ml Q15M PRN IV DECREASED GLUCOSE; Start 07/07/16 at 17:30 Dextrose (D50w Syringe) 50 ml Q15M PRN IV DECREASED GLUCOSE; Start 07/07/16 at 17:30 Glucagon (Glucagen) 1 mg Q15M PRN IM DECREASED GLUCOSE; Start 07/07/16 at 17:30 Glucose (Glutose) 15 gm Q15M PRN BUCCAL DECREASED GLUCOSE; Start 07/07/16 at 17 :30 Sodium Hypochlorite (Dakin'S (1/4 Strength)) 1 applic QHS IRR Last administered on 07/16/16 21:44; Admin Dose 1 APPLIC; Start 07/11/16 at 21:00 Docusate Sodium (Colace Liquid Cup) 100 mg DAILY GTB Last administered on 10:44; Admin Dose 100 MG; Start 07/12/16 at 10:00 Linezolid (Zyvox) 600 mg BID PO Last administered on 07/17/16 09:17; Admin Dose 600 MG; Start 07/12/16 at 21:00 Amikacin Sulfate AMIKACIN PER PHARMACY NOTE XX ; Start 07/12/16 at 13:30 Amikacin Sulfate/ Sodium Chloride (Amikacin/NS) 104 ml @ 102 mls/hr Q36H IVPB Last administered on 07/17/16 04:49; Admin Dose 102 MLS/HR; Start 07/12/16 at 16: 00 Silver Sulfadiazine (Thermazene 1% 25 Gm) 1 applic DAILY TOP Last administered on 07/17/16 11:49; Admin Dose 1 APPLIC; Start 07/14/16 at 09:00 Insulin Aspart (Novolog Insulin Pen) NOVOLOG *MILD* ALGORI... Q6 SC Last administered on 07/17/16 11:52; Admin Dose 2 UNIT; Start 07/14/16 at 12:00 Metronidazole (Flagyl) 500 mg Q8 NGT Last administered on 07/17/16 13:04; Admin Dose 500 MG; Start 07/14/16 at 15:30 Miscellaneous Information (*Rx Drug Level Order Reminder*) AMIKACIN TROUGH AT 1... ONCE ONCE XX ; Start 07/18/16 at 15:00; Stop 07/18/16 at 15:01 JUAN POSADA Jul 17, 2016 15:01
--- NOTE | 2016-07-17 16:37 | CONS ---
Date/Time of Note Date/Time of Note DATE: 07/17/16 TIME: 16:36 Consult Date/Type/Reason Admit Date/Time Jul 06, 2016 at 22:42 Initial Consult Date 07/07/16 Type of Consultation: Pulm Ordering Provider: JOSR LORENZO MD Subjective No events. On vent. Objective Vital Signs Date Time Temp Pulse Resp B/P Pulse Ox O2 Delivery O2 Flow Rate FiO2 07/17/16 16:22 96 07/17/16 15:00 20 97 30 07/17/16 10:42 99.1 142/62 07/17/16 06:05 Mechanical Ventilator Intake and Output 07/16/16 07/16/16 07/17/16 15:00 23:00 07:00 Intake Total 1080 ml 1274 ml Output Total 875 ml 1700 ml Balance 205 ml -426 ml Exam HEENT: Neck supple; no JVD; no LAD, trach site CVS: RRR, S1 and S2 CHEST: Clear ABD: Soft, NT, + BS EXT: No c/c; + edema Results/Medications Result Diagram: 07/17/16 0550 07/17/16 0550 Results 24 hrs Laboratory Tests Test 07/16/16 18:41 07/16/16 23:51 07/17/16 05:50 07/17/16 11:47 Bedside Glucose 186 207 214 White Blood Count 15.5 H Red Blood Count 3.48 L Hemoglobin 9.4 L Hematocrit 31.6 L Mean Corpuscular Volume 90.8 Mean Corpuscular Hemoglobin 27.0 L Mean Corpuscular Hemoglobin Concent 29.7 L Red Cell Distribution Width 20.6 H Platelet Count 636 H Mean Platelet Volume 10.8 H Neutrophils % 68.6 Lymphocytes % 20.9 Monocytes % 7.5 Eosinophils % 1.9 Basophils % 0.4 Nucleated Red Blood Cells % 0.0 Neutrophils # 10.7 H Lymphocytes # 3.3 H Monocytes # 1.2 H Eosinophils # 0.3 Basophils # 0.1 Nucleated Red Blood Cells # 0.0 Sodium Level 136 Potassium Level 4.0 Chloride Level 94 L Carbon Dioxide Level 30 Anion Gap 16 Blood Urea Nitrogen 20 Creatinine 0.56 Glucose Level 205 Calcium Level 9.6 Medications Current Medications Acetaminophen (Tylenol Tab) 650 mg Q6 PRN GTB PAIN Last administered on t 04:49; Admin Dose 650 MG; Start 07/07/16 at 12:00 Apixaban (Eliquis) 5 mg BID GTB Last administered on 07/17/16 09:18; Admin Dose 5 MG; Start 07/07/16 at 21:00 Bisacodyl (Dulcolax Supp) 10 mg PRN [place] ; Start 07/07/16 at 12:00 Carvedilol (Coreg) 3.125 mg BID GTB Last administered on 07/17/16 09:19; Admin Dose 3.125 MG; Start 07/07/16 at 21:00 Chlorhexidine Gluconate (Peridex) 15 ml Q12 MM Last administered on 07/17/16 09 :18; Admin Dose 15 ML; Start 07/07/16 at 21:00 Clonazepam (Klonopin) 0.5 mg TID GTB Last administered on 07/17/16 13:04; Admin Dose 0.5 MG; Start 07/07/16 at 13:00 Fentanyl (Duragesic 50 Mcg/Hr Patch) 1 patch Q72H TRANSDERM Last administered on 07/17/16 13:17; Admin Dose 1 PATCH; Start 07/08/16 at 12:00 Ferrous Sulfate (Feosol Liquid Cup) 330 mg BID GTB Last administered on 09:19; Admin Dose 330 MG; Start 07/07/16 at 21:00 Insulin Glargine (Lantus) 10 unit QHS SC Last administered on 07/16/16 21:51; Admin Dose 10 UNIT; Start 07/07/16 at 21:00 Lansoprazole (Prevacid) 30 mg DAILY GTB Last administered on 07/17/16 09:17; Admin Dose 30 MG; Start 07/08/16 at 09:00 Levalbuterol (Xopenex Neb) 0.63 mg Q6H PRN NEB WHEEZING AND SOB Last administered on 07/14/16 22:47; Admin Dose 0.63 MG; Start 07/07/16 at 12:00 Magnesium Hydroxide (Milk Of Mag) 30 ml DAILY PRN GTB CONSTIPATION; Start 07/07 at 12:00 Metoclopramide HCl (Reglan) 10 mg Q6 PRN GTB NAUSEA AND/OR VOMITING; Start at 17:00 Sodium Biphosphate/ Sodium Phosphate (Fleet Enema) 135 ml PRN PRN [place] severe constipation; Start 07/07/16 at 17:00 Quetiapine Fumarate (Seroquel) 12.5 mg DAILY GTB Last administered on 07/17/16 09:17; Admin Dose 12.5 MG; Start 07/08/16 at 09:00 Valsartan (Diovan) 80 mg DAILY GTB Last administered on 07/17/16 09:18; Admin Dose 80 MG; Start 07/08/16 at 09:00 Zinc Sulfate (Zinc Sulfate) 220 mg DAILY GTB Last administered on 07/17/16 09: 17; Admin Dose 220 MG; Start 07/08/16 at 09:00 Multivitamins (Thera-Plus) 5 ml DAILY GTB Last administered on 07/17/16 09:17; Admin Dose 5 ML; Start 07/08/16 at 09:00 Ascorbic Acid (Vitamin C) 500 mg DAILY GTB Last administered on 07/17/16 09:18 ; Admin Dose 500 MG; Start 07/08/16 at 09:00 Miscellaneous Information 1 ea NOTE XX ; Start 07/07/16 at 17:30 Glucose (Glutose) 15 gm Q15M PRN PO DECREASED GLUCOSE; Start 07/07/16 at 17:30 Glucose (Glutose) 22.5 gm Q15M PRN PO DECREASED GLUCOSE; Start 07/07/16 at 17: 30 Dextrose (D50w Syringe) 25 ml Q15M PRN IV DECREASED GLUCOSE; Start 07/07/16 at 17:30 Dextrose (D50w Syringe) 50 ml Q15M PRN IV DECREASED GLUCOSE; Start 07/07/16 at 17:30 Glucagon (Glucagen) 1 mg Q15M PRN IM DECREASED GLUCOSE; Start 07/07/16 at 17:30 Glucose (Glutose) 15 gm Q15M PRN BUCCAL DECREASED GLUCOSE; Start 07/07/16 at 17 :30 Sodium Hypochlorite (Dakin'S (1/4 Strength)) 1 applic QHS IRR Last administered on 07/16/16 21:44; Admin Dose 1 APPLIC; Start 07/11/16 at 21:00 Docusate Sodium (Colace Liquid Cup) 100 mg DAILY GTB Last administered on 10:44; Admin Dose 100 MG; Start 07/12/16 at 10:00 Linezolid (Zyvox) 600 mg BID PO Last administered on 07/17/16 09:17; Admin Dose 600 MG; Start 07/12/16 at 21:00 Amikacin Sulfate AMIKACIN PER PHARMACY NOTE XX ; Start 07/12/16 at 13:30 Amikacin Sulfate/ Sodium Chloride (Amikacin/NS) 104 ml @ 102 mls/hr Q36H IVPB Last administered on 07/17/16 04:49; Admin Dose 102 MLS/HR; Start 07/12/16 at 16: 00 Silver Sulfadiazine (Thermazene 1% 25 Gm) 1 applic DAILY TOP Last administered on 07/17/16 11:49; Admin Dose 1 APPLIC; Start 07/14/16 at 09:00 Insulin Aspart (Novolog Insulin Pen) NOVOLOG *MILD* ALGORI... Q6 SC Last administered on 07/17/16 11:52; Admin Dose 2 UNIT; Start 07/14/16 at 12:00 Metronidazole (Flagyl) 500 mg Q8 NGT Last administered on 07/17/16 13:04; Admin Dose 500 MG; Start 07/14/16 at 15:30 Miscellaneous Information (*Rx Drug Level Order Reminder*) AMIKACIN TROUGH AT 1... ONCE ONCE XX ; Start 07/18/16 at 15:00; Stop 07/18/16 at 15:01 Assessment/Plan Additional Assessment/Plan IMP: 1. Vent dependent respiratory failure 2. History of CVA with hemiplegia 3. History of encephalopathy chronic secondary to above 4. Leukocytosis 5. Anemia evidenceel 6. History of dysphagia with G-tube 7. History of atrial fibrillation RECS: 1. BD's/CPT/suctioning prn 2. Am labs/CXR 3. Vent support JACK DSOUZA MD Jul 17, 2016 16:37
[2016-07-17] MEDS: HYDROCODONE/APAP (5/325) TAB GTB PRN ×2 (18:03→23:27)
--- NOTE | 2016-07-17 20:15 | CONS ---
Date/Time of Note Date/Time of Note DATE: 07/17/16 TIME: 20:11 Assessment/Plan Assessment/Plan Chief Complaint/Hosp Course ID PROGRESS NOTE CURRENT ABX=> 1. Zyvox 2. Colistin inhalation. 3. Amikacin. 4. Flagyl 24H INTERVAL SUMMARY * Awake, alert -- feels "Hot" wants to take off her gown, spouse in room wants her to keep it on * She is restless on Vent -- Low grade temps, WBC slightly down today * Left dry gangrene foot open to air PHYSICAL EXAMINATION: GENERAL: VSS, NAD, Afebrile HEENT: Unremarkable NECK: Supple, trachea(+) secure CHEST: Rise symmetrical, without dyspnea on observation HEART: Pulse RRR ABDOMEN: Soft (+)Peg EXTREMITIES: Warm ->(+) Left foot dry gangrene open to air ID ASSESSMENT 66 yo F admit with: 1. SIRS w/low grade temperatures and persistent leukocytosis, likely 2 to #2 , rule out myelodysplasia 2. Left foot gangrene with open wound culture growing multi-drug resistant organisms. * Wound culture grew Pseudomonas aeruginosa, Providencia stuartii, VRE 3. Chronic respiratory failure (+) Trach w/tracheobronchitis s/p HCAP * SPUTUM CX: RESPIRATORY CULTURE Final Organism 1 SERRATIA MARCESCENS QUANTITY 1+ Organism 2 PROTEUS MIRABILIS QUANTITY 1+ Organism 3 PSEUDOMONAS AERUGINOSA 4. Dysphagia. 5. Chronic encephalopathy. 6. Severe peripheral arterial and vascular disease, not a candidate for revascularization procedure per previous admission vascular note. 7. Diabetes. (-)MRSA Nares INVASIVES: PIV, Trach, PEG, Rivera. ABX ALLERGY: None to ABX CURRENT ABX: 1. Zyvox 2. Colistin inhalation. 3. Amikacin. 4. Flagyl ID RECOMMENDATIONS 1. Continue current ABX 2. Observe over the weekend on ABX -> Reassess by ID team next week . Problems: Consultation Date/Type/Reason Admit Date/Time Jul 06, 2016 at 22:42 Initial Consult Date 07/12/16 Type of Consultation: ID Referring Provider: JOSR LORENZO MD Exam/Review of Systems Vital Signs Vitals Vital Signs Date Time Temp Pulse Resp B/P Pulse Ox O2 Delivery O2 Flow Rate FiO2 07/17/16 19:27 100 15 97 30 07/17/16 16:56 99.0 109/55 07/17/16 06:05 Mechanical Ventilator Intake and Output 07/16/16 07/16/16 07/17/16 15:00 23:00 07:00 Intake Total 1080 ml 1274 ml Output Total 875 ml 1700 ml Balance 205 ml -426 ml Results Result Diagram: 07/17/16 0550 07/17/16 0550 Results 24 hrs Laboratory Tests Test 07/16/16 23:51 07/17/16 05:50 07/17/16 11:47 07/17/16 17:32 Bedside Glucose 207 214 183 White Blood Count 15.5 H Red Blood Count 3.48 L Hemoglobin 9.4 L Hematocrit 31.6 L Mean Corpuscular Volume 90.8 Mean Corpuscular Hemoglobin 27.0 L Mean Corpuscular Hemoglobin Concent 29.7 L Red Cell Distribution Width 20.6 H Platelet Count 636 H Mean Platelet Volume 10.8 H Neutrophils % 68.6 Lymphocytes % 20.9 Monocytes % 7.5 Eosinophils % 1.9 Basophils % 0.4 Nucleated Red Blood Cells % 0.0 Neutrophils # 10.7 H Lymphocytes # 3.3 H Monocytes # 1.2 H Eosinophils # 0.3 Basophils # 0.1 Nucleated Red Blood Cells # 0.0 Sodium Level 136 Potassium Level 4.0 Chloride Level 94 L Carbon Dioxide Level 30 Anion Gap 16 Blood Urea Nitrogen 20 Creatinine 0.56 Glucose Level 205 Calcium Level 9.6 Medications Medications Current Medications Acetaminophen (Tylenol Tab) 650 mg Q6 PRN GTB PAIN Last administered on 04:49; Admin Dose 650 MG; Start 07/07/16 at 12:00 Apixaban (Eliquis) 5 mg BID GTB Last administered on 07/17/16 09:18; Admin Dose 5 MG; Start 07/07/16 at 21:00 Bisacodyl (Dulcolax Supp) 10 mg PRN [place] ; Start 07/07/16 at 12:00 Carvedilol (Coreg) 3.125 mg BID GTB Last administered on 07/17/16 09:19; Admin Dose 3.125 MG; Start 07/07/16 at 21:00 Chlorhexidine Gluconate (Peridex) 15 ml Q12 MM Last administered on 07/17/16 09 :18; Admin Dose 15 ML; Start 07/07/16 at 21:00 Clonazepam (Klonopin) 0.5 mg TID GTB Last administered on 07/17/16 13:04; Admin Dose 0.5 MG; Start 07/07/16 at 13:00 Fentanyl (Duragesic 50 Mcg/Hr Patch) 1 patch Q72H TRANSDERM Last administered on 07/17/16 13:17; Admin Dose 1 PATCH; Start 07/08/16 at 12:00 Ferrous Sulfate (Feosol Liquid Cup) 330 mg BID GTB Last administered on 09:19; Admin Dose 330 MG; Start 07/07/16 at 21:00 Insulin Glargine (Lantus) 10 unit QHS SC Last administered on 07/16/16 21:51; Admin Dose 10 UNIT; Start 07/07/16 at 21:00 Lansoprazole (Prevacid) 30 mg DAILY GTB Last administered on 07/17/16 09:17; Admin Dose 30 MG; Start 07/08/16 at 09:00 Levalbuterol (Xopenex Neb) 0.63 mg Q6H PRN NEB WHEEZING AND SOB Last administered on 07/14/16 22:47; Admin Dose 0.63 MG; Start 07/07/16 at 12:00 Magnesium Hydroxide (Milk Of Mag) 30 ml DAILY PRN GTB CONSTIPATION; Start 07/07 at 12:00 Metoclopramide HCl (Reglan) 10 mg Q6 PRN GTB NAUSEA AND/OR VOMITING; Start at 17:00 Sodium Biphosphate/ Sodium Phosphate (Fleet Enema) 135 ml PRN PRN [place] severe constipation; Start 07/07/16 at 17:00 Quetiapine Fumarate (Seroquel) 12.5 mg DAILY GTB Last administered on 07/17/16 09:17; Admin Dose 12.5 MG; Start 07/08/16 at 09:00 Valsartan (Diovan) 80 mg DAILY GTB Last administered on 07/17/16 09:18; Admin Dose 80 MG; Start 07/08/16 at 09:00 Zinc Sulfate (Zinc Sulfate) 220 mg DAILY GTB Last administered on 07/17/16 09: 17; Admin Dose 220 MG; Start 07/08/16 at 09:00 Multivitamins (Thera-Plus) 5 ml DAILY GTB Last administered on 07/17/16 09:17; Admin Dose 5 ML; Start 07/08/16 at 09:00 Ascorbic Acid (Vitamin C) 500 mg DAILY GTB Last administered on 07/17/16 09:18 ; Admin Dose 500 MG; Start 07/08/16 at 09:00 Miscellaneous Information 1 ea NOTE XX ; Start 07/07/16 at 17:30 Glucose (Glutose) 15 gm Q15M PRN PO DECREASED GLUCOSE; Start 07/07/16 at 17:30 Glucose (Glutose) 22.5 gm Q15M PRN PO DECREASED GLUCOSE; Start 07/07/16 at 17: 30 Dextrose (D50w Syringe) 25 ml Q15M PRN IV DECREASED GLUCOSE; Start 07/07/16 at 17:30 Dextrose (D50w Syringe) 50 ml Q15M PRN IV DECREASED GLUCOSE; Start 07/07/16 at 17:30 Glucagon (Glucagen) 1 mg Q15M PRN IM DECREASED GLUCOSE; Start 07/07/16 at 17:30 Glucose (Glutose) 15 gm Q15M PRN BUCCAL DECREASED GLUCOSE; Start 07/07/16 at 17 :30 Sodium Hypochlorite (Dakin'S (1/4 Strength)) 1 applic QHS IRR Last administered on 07/16/16 21:44; Admin Dose 1 APPLIC; Start 07/11/16 at 21:00 Docusate Sodium (Colace Liquid Cup) 100 mg DAILY GTB Last administered on 10:44; Admin Dose 100 MG; Start 07/12/16 at 10:00 Linezolid (Zyvox) 600 mg BID PO Last administered on 07/17/16 09:17; Admin Dose 600 MG; Start 07/12/16 at 21:00 Amikacin Sulfate AMIKACIN PER PHARMACY NOTE XX ; Start 07/12/16 at 13:30 Amikacin Sulfate/ Sodium Chloride (Amikacin/NS) 104 ml @ 102 mls/hr Q36H IVPB Last administered on 07/17/16 04:49; Admin Dose 102 MLS/HR; Start 07/12/16 at 16: 00 Silver Sulfadiazine (Thermazene 1% 25 Gm) 1 applic DAILY TOP Last administered on 07/17/16 11:49; Admin Dose 1 APPLIC; Start 07/14/16 at 09:00 Insulin Aspart (Novolog Insulin Pen) NOVOLOG *MILD* ALGORI... Q6 SC Last administered on 07/17/16 17:37; Admin Dose 2 UNIT; Start 07/14/16 at 12:00 Metronidazole (Flagyl) 500 mg Q8 NGT Last administered on 07/17/16 13:04; Admin Dose 500 MG; Start 07/14/16 at 15:30 Miscellaneous Information (*Rx Drug Level Order Reminder*) AMIKACIN TROUGH AT 1... ONCE ONCE XX ; Start 07/18/16 at 15:00; Stop 07/18/16 at 15:01 AZUCENA NEFF NP Jul 17, 2016 20:15
[2016-07-17] MEDS: SODIUM HYPOCHLORITE 0.125% 473 ML BTL IRR SCH (21:32)
[2016-07-17] MEDS: INSULIN GLARGINE [LANtus] 3 ML PEN SC SCH (21:34)
[2016-07-18] VITALS (27 sets, daily range): BP systolic 122–163; BP diastolic 58–77; PULSE 78–97; RESP 13–27
[2016-07-18] MEDS: HYDROCODONE/APAP (5/325) TAB GTB PRN (05:27)
[2016-07-18] MEDS: metroNIDAZOLE 500 MG TAB NGT SCH ×2 (05:27→15:01)
[2016-07-18] MEDS: INSULIN ASPART [NOVOLOG] 3 ML PEN SC SCH ×3 (05:36→18:53)
[2016-07-18 06:28] LABS: ADD SCAN DIFF NO; BASOPHIL # 0.1 10^3/ul (0.0-0.1); BASOPHILS % 0.6 % (0.0-2.0); EOSINOPHILS # 0.5 10^3/ul (0.0-0.5); EOSINOPHILS % 3.3 % (0.0-7.0); HEMATOCRIT 33.2 % (37.0-47.0); HEMOGLOBIN 9.7 g/dl (12.0-16.0); LYMPHOCYTES # 3.5 10^3/ul (0.8-2.9); LYMPHOCYTES % 21.8 % (15.0-51.0); MEAN CORPUSCULAR HEMOGLOBIN 26.9 pg (29.0-33.0); MEAN CORPUSCULAR HGB CONC 29.2 g/dl (32.0-37.0); MEAN CORPUSCULAR VOLUME 92.2 fl (82.0-101.0); MEAN PLATELET VOLUME 10.8 fl (7.4-10.4); MONOCYTE # 1.4 10^3/ul (0.3-0.9); NEUTROPHIL # 10.3 10^3/ul (1.6-7.5); NEUTROPHILS % 64.6 % (39.0-77.0); PLATELET COUNT 607 10^3/UL (140-415); RED CELL DISTRIBUTION WIDTH 20.8 % (11.5-14.5)
[2016-07-18 06:45] LABS: POTASSIUM 4.1 mmol/L (3.5-5.1)
[2016-07-18 06:47] LABS: CREATININE 0.58 mg/dl (0.44-1.00)
[2016-07-18 06:48] LABS: CALCIUM 9.8 mg/dl (8.4-10.2)
[2016-07-18] MEDS: ASCORBIC ACID 500 MG TAB GTB SCH ×2 (09:00→13:17)
[2016-07-18] MEDS: COLISTIMETHATE (25 MG/ML INHAL SYG) NEB SCH ×2 (09:45→20:41)
[2016-07-18] MEDS: CHLORHEXIDINE GLUCONATE 15 ML UD CUP MM SCH ×2 (10:23→21:10)
[2016-07-18] MEDS: MULTIVITAMINS 5 ML CUP GTB SCH (10:23)
[2016-07-18] MEDS: DOCUSATE SODIUM 10 MG/ML (10ML CUP) GTB SCH (10:24)
[2016-07-18] MEDS: FERROUS SULFATE 60 MG/ML 5ML CUP GTB SCH ×2 (10:24→21:10)
[2016-07-18] MEDS: LANSOPRAZOLE 30 MG CAP GTB SCH (10:25)
[2016-07-18] MEDS: QUETIAPINE 25 MG TAB GTB SCH (10:25)
[2016-07-18] MEDS: ZINC SULFATE 220 MG CAP GTB SCH (10:25)
[2016-07-18] MEDS: VALSARTAN 80 MG TAB GTB SCH (10:25)
[2016-07-18] MEDS: ZYVOX 600 MG TAB PO SCH ×2 (10:25→21:00)
[2016-07-18] MEDS: APIXABAN 5 MG TABLET GTB SCH ×2 (10:26→21:10)
[2016-07-18] MEDS: SILVER SULFADIAZINE 1% 25 GM CR TOP SCH (10:28)
[2016-07-18] MEDS: clonAZEPAM 0.5 MG TAB GTB SCH ×3 (10:32→21:11)
--- NOTE | 2016-07-18 13:33 | CONS ---
Date/Time of Note Date/Time of Note DATE: 07/18/16 TIME: 13:31 Assessment/Plan Assessment/Plan Additional Assessment/Plan Ventilator settings; AC of 12, tidal volume 5 oh, PEEP of 5, 30% FiO2. Assessment recommendations; 1. Patient admitted for sepsis 2. Anemia of left foot. 3. Multifocal dementia. 4. Chronic respiratory failure, ventilator dependent. Continue current supportive care. Prognosis remains extremely poor. Consultation Date/Type/Reason Admit Date/Time Jul 06, 2016 at 22:42 Initial Consult Date 07/12/16 Type of Consultation: Pulmonary Referring Provider: JOSR LORENZO MD 24 HR Interval Summary Free Text/Dictation Patient condition remains stable. Remains ventilator dependent. Because of underlying dementia patient does not respond to any commands. General exam; elderly woman, on ventilator via tracheostomy currently in no distress. Exam/Review of Systems Vital Signs Vitals Vital Signs Date Time Temp Pulse Resp B/P Pulse Ox O2 Delivery O2 Flow Rate FiO2 07/18/16 12:00 97 07/18/16 11:54 98.3 18 140/77 98 07/18/16 11:37 30 07/18/16 06:06 Mechanical Ventilator Intake and Output 07/17/16 07/17/16 07/18/16 15:00 23:00 07:00 Intake Total 1260 ml 1170 ml Output Total 650 ml 1400 ml Balance 610 ml -230 ml Exam HEENT examination; supple neck, JVD difficult to see because of short neck. Tracheostomy in place with clean insertion site. Pupils are small bilaterally. No neck masses. No thyromegaly. No neck bruits. Chest exam is; diminished but clear vessel bilaterally. S1-S2 audible, no murmurs. Regular rhythm. Abdomen examination; soft, nondistended. G-tube in place. Bowel is audible. Extremity exam is; gangrene involving left foot. [employer]OUN[employer] WORK[employer] GENER[employer] examination patient remains awake but unresponsive unresponsive. Results Result Diagram: 07/18/16 0535 07/18/16 0535 Results 24 hrs Laboratory Tests Test 07/17/16 17:32 07/17/16 23:18 07/18/16 05:30 07/18/16 05:35 Bedside Glucose 183 188 198 White Blood Count 16.0 H Red Blood Count 3.60 L Hemoglobin 9.7 L Hematocrit 33.2 L Mean Corpuscular Volume 92.2 Mean Corpuscular Hemoglobin 26.9 L Mean Corpuscular Hemoglobin Concent 29.2 L Red Cell Distribution Width 20.8 H Platelet Count 607 H Mean Platelet Volume 10.8 H Neutrophils % 64.6 Lymphocytes % 21.8 Monocytes % 9.0 Eosinophils % 3.3 Basophils % 0.6 Nucleated Red Blood Cells % 0.0 Neutrophils # 10.3 H Lymphocytes # 3.5 H Monocytes # 1.4 H Eosinophils # 0.5 Basophils # 0.1 Nucleated Red Blood Cells # 0.0 Sodium Level 137 Potassium Level 4.1 Chloride Level 96 L Carbon Dioxide Level 31 Anion Gap 14 Blood Urea Nitrogen 22 H Creatinine 0.58 Glucose Level 207 Calcium Level 9.8 Test 07/18/16 13:05 Bedside Glucose 201 Medications Medications Current Medications Acetaminophen (Tylenol Tab) 650 mg Q6 PRN GTB PAIN Last administered on 04:49; Admin Dose 650 MG; Start 07/07/16 at 12:00 Apixaban (Eliquis) 5 mg BID GTB Last administered on 07/18/16 10:26; Admin Dose 5 MG; Start 07/07/16 at 21:00 Bisacodyl (Dulcolax Supp) 10 mg PRN [place] ; Start 07/07/16 at 12:00 Carvedilol (Coreg) 3.125 mg BID GTB Last administered on 07/18/16 10:26; Admin Dose 3.125 MG; Start 07/07/16 at 21:00 Chlorhexidine Gluconate (Peridex) 15 ml Q12 MM Last administered on 07/18/16 10:23; Admin Dose 15 ML; Start 07/07/16 at 21:00 Clonazepam (Klonopin) 0.5 mg TID GTB Last administered on 07/18/16 13:16; Admin Dose 0.5 MG; Start 07/07/16 at 13:00 Fentanyl (Duragesic 50 Mcg/Hr Patch) 1 patch Q72H TRANSDERM Last administered on 07/17/16 13:17; Admin Dose 1 PATCH; Start 07/08/16 at 12:00 Ferrous Sulfate (Feosol Liquid Cup) 330 mg BID GTB Last administered on 10:24; Admin Dose 330 MG; Start 07/07/16 at 21:00 Insulin Glargine (Lantus) 10 unit QHS SC Last administered on 07/17/16 21:34; Admin Dose 10 UNIT; Start 07/07/16 at 21:00 Lansoprazole (Prevacid) 30 mg DAILY GTB Last administered on 07/18/16 10:25; Admin Dose 30 MG; Start 07/08/16 at 09:00 Levalbuterol (Xopenex Neb) 0.63 mg Q6H PRN NEB WHEEZING AND SOB Last administered on 07/14/16 22:47; Admin Dose 0.63 MG; Start 07/07/16 at 12:00 Magnesium Hydroxide (Milk Of Mag) 30 ml DAILY PRN GTB CONSTIPATION; Start 07/07 at 12:00 Metoclopramide HCl (Reglan) 10 mg Q6 PRN GTB NAUSEA AND/OR VOMITING; Start at 17:00 Sodium Biphosphate/ Sodium Phosphate (Fleet Enema) 135 ml PRN PRN [place] severe constipation; Start 07/07/16 at 17:00 Quetiapine Fumarate (Seroquel) 12.5 mg DAILY GTB Last administered on 10:25; Admin Dose 12.5 MG; Start 07/08/16 at 09:00 Valsartan (Diovan) 80 mg DAILY GTB Last administered on 07/18/16 10:25; Admin Dose 80 MG; Start 07/08/16 at 09:00 Zinc Sulfate (Zinc Sulfate) 220 mg DAILY GTB Last administered on 07/18/16 10: 25; Admin Dose 220 MG; Start 07/08/16 at 09:00 Multivitamins (Thera-Plus) 5 ml DAILY GTB Last administered on 07/18/16 10:23 ; Admin Dose 5 ML; Start 07/08/16 at 09:00 Ascorbic Acid (Vitamin C) 500 mg DAILY GTB Last administered on 07/18/16 13:17 ; Admin Dose 500 MG; Start 07/08/16 at 09:00 Miscellaneous Information 1 ea NOTE XX ; Start 07/07/16 at 17:30 Glucose (Glutose) 15 gm Q15M PRN PO DECREASED GLUCOSE; Start 07/07/16 at 17:30 Glucose (Glutose) 22.5 gm Q15M PRN PO DECREASED GLUCOSE; Start 07/07/16 at 17: 30 Dextrose (D50w Syringe) 25 ml Q15M PRN IV DECREASED GLUCOSE; Start 07/07/16 at 17:30 Dextrose (D50w Syringe) 50 ml Q15M PRN IV DECREASED GLUCOSE; Start 07/07/16 at 17:30 Glucagon (Glucagen) 1 mg Q15M PRN IM DECREASED GLUCOSE; Start 07/07/16 at 17:30 Glucose (Glutose) 15 gm Q15M PRN BUCCAL DECREASED GLUCOSE; Start 07/07/16 at 17 :30 Sodium Hypochlorite (Dakin'S (4 Strength)) 1 applic QHS IRR Last administered on 07/17/16 21:32; Admin Dose 1 APPLIC; Start 07/11/16 at 21:00 Docusate Sodium (Colace Liquid Cup) 100 mg DAILY GTB Last administered on 10:24; Admin Dose 100 MG; Start 07/12/16 at 10:00 Linezolid (Zyvox) 600 mg BID PO Last administered on 07/18/16 10:25; Admin Dose 600 MG; Start 07/12/16 at 21:00 Amikacin Sulfate AMIKACIN PER PHARMACY NOTE XX ; Start 07/12/16 at 13:30 Amikacin Sulfate/ Sodium Chloride (Amikacin/NS) 104 ml @ 102 mls/hr Q36H IVPB Last administered on 07/17/16 04:49; Admin Dose 102 MLS/HR; Start 07/12/16 at 16: 00 Silver Sulfadiazine (Thermazene 1% 25 Gm) 1 applic DAILY TOP Last administered on 07/18/16 10:28; Admin Dose 1 APPLIC; Start 07/14/16 at 09:00 Insulin Aspart (Novolog Insulin Pen) NOVOLOG *MILD* ALGORI... Q6 SC Last administered on 07/18/16 13:22; Admin Dose 2 UNIT; Start 07/14/16 at 12:00 Metronidazole (Flagyl) 500 mg Q8 NGT Last administered on 07/18/16 05:27; Admin Dose 500 MG; Start 07/14/16 at 15:30 Miscellaneous Information (*Rx Drug Level Order Reminder*) AMIKACIN TROUGH AT 1... ONCE ONCE XX ; Start 07/18/16 at 15:00; Stop 07/18/16 at 15:01 STEVE JONES Jul 18, 2016 13:33
--- NOTE | 2016-07-18 15:09 | CONS ---
Date/Time of Note Date/Time of Note DATE: 07/18/16 TIME: 15:08 Assessment/Plan Assessment/Plan Additional Assessment/Plan IMPRESSION: 1. Sepsis, most probably from pneumonia and urinary tract infection. 2. Severe anemia. No evidence of acute gastrointestinal bleeding. Hematocrit has remained stable. 3. Left lower extremity cellulitis, chronic wound with left foot gangrene. 4. Peripheral vascular disease. 5. Dysphagia, status post percutaneous endoscopic gastrostomy. 6. Cerebrovascular accident. 7. Encephalopathy. 8. Osteoarthritis. 9. Vent dependent respiratory failure. 10. Cardiomyopathy with ejection fraction of 45%. 11. Peripheral vascular disease Plan Continue Procrit Monitor H&H Continue present care Patient on multiple antibiotic. Consultation Date/Type/Reason Admit Date/Time Jul 06, 2016 at 22:42 Initial Consult Date 07/07/16 Type of Consultation: Pulmonary Referring Provider: JOSR LORENZO MD 24 HR Interval Summary Constitutional: no complaints Exam/Review of Systems Vital Signs Vitals Vital Signs Date Time Temp Pulse Resp B/P Pulse Ox O2 Delivery O2 Flow Rate FiO2 07/18/16 13:49 94 20 98 30 07/18/16 11:54 98.3 140/77 07/18/16 06:06 Mechanical Ventilator Intake and Output 07/17/16 07/17/16 07/18/16 15:00 23:00 07:00 Intake Total 1260 ml 1170 ml Output Total 650 ml 1400 ml Balance 610 ml -230 ml Exam Constitutional: alert, oriented, well developed Psych: nl mood/affect, no complaints Head: atraumatic, normocephalic Eyes: EOMI, PERRL, nl conjunctiva, nl lids, nl sclera ENMT: nl external ears & nose, nl lips & teeth, nl nasal mucosa & septum Neck: non-tender, supple Respiratory: clear to auscultation, normal air movement Cardiovascular: nl pulses, regular rate and rhythm Gastrointestinal: nl liver, spleen, non-tender, soft Musculoskeletal: nl extremities to inspection, nl gait and stance Extremities: normal pulses Neurological: RESULTS TECHNICIAN II-XII intact, nl mental status, nl speech, nl strength Skin: nl turgor, No rash or lesions Lymph: nl lymph nodes Results Result Diagram: 07/18/16 0535 07/18/16 0535 Results 24 hrs Laboratory Tests Test 07/17/16 17:32 07/17/16 23:18 07/18/16 05:30 07/18/16 05:35 Bedside Glucose 183 188 198 White Blood Count 16.0 H Red Blood Count 3.60 L Hemoglobin 9.7 L Hematocrit 33.2 L Mean Corpuscular Volume 92.2 Mean Corpuscular Hemoglobin 26.9 L Mean Corpuscular Hemoglobin Concent 29.2 L Red Cell Distribution Width 20.8 H Platelet Count 607 H Mean Platelet Volume 10.8 H Neutrophils % 64.6 Lymphocytes % 21.8 Monocytes % 9.0 Eosinophils % 3.3 Basophils % 0.6 Nucleated Red Blood Cells % 0.0 Neutrophils # 10.3 H Lymphocytes # 3.5 H Monocytes # 1.4 H Eosinophils # 0.5 Basophils # 0.1 Nucleated Red Blood Cells # 0.0 Sodium Level 137 Potassium Level 4.1 Chloride Level 96 L Carbon Dioxide Level 31 Anion Gap 14 Blood Urea Nitrogen 22 H Creatinine 0.58 Glucose Level 207 Calcium Level 9.8 Test 07/18/16 13:05 Bedside Glucose 201 Medications Medications Current Medications Acetaminophen (Tylenol Tab) 650 mg Q6 PRN GTB PAIN Last administered on 04:49; Admin Dose 650 MG; Start 07/07/16 at 12:00 Apixaban (Eliquis) 5 mg BID GTB Last administered on 07/18/16 10:26; Admin Dose 5 MG; Start 07/07/16 at 21:00 Bisacodyl (Dulcolax Supp) 10 mg PRN [place] ; Start 07/07/16 at 12:00 Carvedilol (Coreg) 3.125 mg BID GTB Last administered on 07/18/16 10:26; Admin Dose 3.125 MG; Start 07/07/16 at 21:00 Chlorhexidine Gluconate (Peridex) 15 ml Q12 MM Last administered on 07/18/16 10:23; Admin Dose 15 ML; Start 07/07/16 at 21:00 Clonazepam (Klonopin) 0.5 mg TID GTB Last administered on 07/18/16 13:16; Admin Dose 0.5 MG; Start 07/07/16 at 13:00 Fentanyl (Duragesic 50 Mcg/Hr Patch) 1 patch Q72H TRANSDERM Last administered on 07/17/16 13:17; Admin Dose 1 PATCH; Start 07/08/16 at 12:00 Ferrous Sulfate (Feosol Liquid Cup) 330 mg BID GTB Last administered on 10:24; Admin Dose 330 MG; Start 07/07/16 at 21:00 Insulin Glargine (Lantus) 10 unit QHS SC Last administered on 07/17/16 21:34; Admin Dose 10 UNIT; Start 07/07/16 at 21:00 Lansoprazole (Prevacid) 30 mg DAILY GTB Last administered on 07/18/16 10:25; Admin Dose 30 MG; Start 07/08/16 at 09:00 Levalbuterol (Xopenex Neb) 0.63 mg Q6H PRN NEB WHEEZING AND SOB Last administered on 07/14/16 22:47; Admin Dose 0.63 MG; Start 07/07/16 at 12:00 Magnesium Hydroxide (Milk Of Mag) 30 ml DAILY PRN GTB CONSTIPATION; Start 07/07 at 12:00 Metoclopramide HCl (Reglan) 10 mg Q6 PRN GTB NAUSEA AND/OR VOMITING; Start at 17:00 Sodium Biphosphate/ Sodium Phosphate (Fleet Enema) 135 ml PRN PRN [place] severe constipation; Start 07/07/16 at 17:00 Quetiapine Fumarate (Seroquel) 12.5 mg DAILY GTB Last administered on 10:25; Admin Dose 12.5 MG; Start 07/08/16 at 09:00 Valsartan (Diovan) 80 mg DAILY GTB Last administered on 07/18/16 10:25; Admin Dose 80 MG; Start 07/08/16 at 09:00 Zinc Sulfate (Zinc Sulfate) 220 mg DAILY GTB Last administered on 07/18/16 10: 25; Admin Dose 220 MG; Start 07/08/16 at 09:00 Multivitamins (Thera-Plus) 5 ml DAILY GTB Last administered on 07/18/16 10:23 ; Admin Dose 5 ML; Start 07/08/16 at 09:00 Ascorbic Acid (Vitamin C) 500 mg DAILY GTB Last administered on 07/18/16 13:17 ; Admin Dose 500 MG; Start 07/08/16 at 09:00 Miscellaneous Information 1 ea NOTE XX ; Start 07/07/16 at 17:30 Glucose (Glutose) 15 gm Q15M PRN PO DECREASED GLUCOSE; Start 07/07/16 at 17:30 Glucose (Glutose) 22.5 gm Q15M PRN PO DECREASED GLUCOSE; Start 07/07/16 at 17: 30 Dextrose (D50w Syringe) 25 ml Q15M PRN IV DECREASED GLUCOSE; Start 07/07/16 at 17:30 Dextrose (D50w Syringe) 50 ml Q15M PRN IV DECREASED GLUCOSE; Start 07/07/16 at 17:30 Glucagon (Glucagen) 1 mg Q15M PRN IM DECREASED GLUCOSE; Start 07/07/16 at 17:30 Glucose (Glutose) 15 gm Q15M PRN BUCCAL DECREASED GLUCOSE; Start 07/07/16 at 17 :30 Sodium Hypochlorite (Dakin'S (1/4 Strength)) 1 applic QHS IRR Last administered on 07/17/16 21:32; Admin Dose 1 APPLIC; Start 07/11/16 at 21:00 Docusate Sodium (Colace Liquid Cup) 100 mg DAILY GTB Last administered on 10:24; Admin Dose 100 MG; Start 07/12/16 at 10:00 Linezolid (Zyvox) 600 mg BID PO Last administered on 07/18/16 10:25; Admin Dose 600 MG; Start 07/12/16 at 21:00 Amikacin Sulfate AMIKACIN PER PHARMACY NOTE XX ; Start 07/12/16 at 13:30 Amikacin Sulfate/ Sodium Chloride (Amikacin/NS) 104 ml @ 102 mls/hr Q36H IVPB Last administered on 07/17/16 04:49; Admin Dose 102 MLS/HR; Start 07/12/16 at 16: 00 Silver Sulfadiazine (Thermazene 1% 25 Gm) 1 applic DAILY TOP Last administered on 07/18/16 10:28; Admin Dose 1 APPLIC; Start 07/14/16 at 09:00 Insulin Aspart (Novolog Insulin Pen) NOVOLOG *MILD* ALGORI... Q6 SC Last administered on 07/18/16 13:22; Admin Dose 2 UNIT; Start 07/14/16 at 12:00 Metronidazole (Flagyl) 500 mg Q8 NGT Last administered on 07/18/16 15:01; Admin Dose 500 MG; Start 07/14/16 at 15:30 INES TORRE MD Jul 18, 2016 15:09
--- NOTE | 2016-07-18 15:15 | CONS ---
Date/Time of Note Date/Time of Note DATE: 07/18/16 TIME: 15:14 Assessment/Plan Assessment/Plan Chief Complaint/Hosp Course SUBJECTIVE: No events overnight. Lying comfortably in bed, afebrile MICROBIOLOGY: Wound culture grew Pseudomonas aeruginosa, Providencia stuartii, VRE INDWELLINGS: Trach, PEG, Rivera. ANTIMICROBIALS: The patient is on: 1. Zyvox 2. Colistin inhalation. 3. Amikacin. 4. Flagyl PHYSICAL EXAMINATION: GENERAL: This is a chronically ill-appearing, elderly woman who is in no distress. HEENT: Head atraumatic, normocephalic. Sclerae anicteric. Buccal mucosa dry. NECK: Supple. Tracheostomy present. CHEST: Rise symmetrical. Breath sounds diminished to bases. HEART: S1, S2. ABDOMEN: Soft. Bowel tones present. EXTREMITIES: Left foot gangrene ASSESSMENT: 1. Persistent leukocytosis, likely 2 to #2 , rule out myelodysplasia. 2. Left foot gangrene with open wound culture growing multi-drug resistant organisms. 3. Chronic respiratory failure. 4. Dysphagia. 5. Chronic encephalopathy. 6. Severe peripheral arterial and vascular disease, not a candidate for revascularization procedure per previous admission vascular note. 7. Diabetes. PLAN: Remains unchanged, Flagyl was added for anaerobic coverage, continue abx , local wound care, management as per primary team and consultants. The patient is DNR status. staff Problems: Consultation Date/Type/Reason Admit Date/Time Jul 06, 2016 at 22:42 Initial Consult Date 07/12/16 Type of Consultation: ID Referring Provider: JOSR LORENZO MD Exam/Review of Systems Vital Signs Vitals Vital Signs Date Time Temp Pulse Resp B/P Pulse Ox O2 Delivery O2 Flow Rate FiO2 07/18/16 13:49 94 20 98 30 07/18/16 11:54 98.3 140/77 07/18/16 06:06 Mechanical Ventilator Intake and Output 07/17/16 07/17/16 07/18/16 15:00 23:00 07:00 Intake Total 1260 ml 1170 ml Output Total 650 ml 1400 ml Balance 610 ml -230 ml Results Result Diagram: 07/18/16 0535 07/18/16 0535 Results 24 hrs Laboratory Tests Test 07/17/16 17:32 07/17/16 23:18 07/18/16 05:30 07/18/16 05:35 Bedside Glucose 183 188 198 White Blood Count 16.0 H Red Blood Count 3.60 L Hemoglobin 9.7 L Hematocrit 33.2 L Mean Corpuscular Volume 92.2 Mean Corpuscular Hemoglobin 26.9 L Mean Corpuscular Hemoglobin Concent 29.2 L Red Cell Distribution Width 20.8 H Platelet Count 607 H Mean Platelet Volume 10.8 H Neutrophils % 64.6 Lymphocytes % 21.8 Monocytes % 9.0 Eosinophils % 3.3 Basophils % 0.6 Nucleated Red Blood Cells % 0.0 Neutrophils # 10.3 H Lymphocytes # 3.5 H Monocytes # 1.4 H Eosinophils # 0.5 Basophils # 0.1 Nucleated Red Blood Cells # 0.0 Sodium Level 137 Potassium Level 4.1 Chloride Level 96 L Carbon Dioxide Level 31 Anion Gap 14 Blood Urea Nitrogen 22 H Creatinine 0.58 Glucose Level 207 Calcium Level 9.8 Test 07/18/16 13:05 Bedside Glucose 201 Medications Medications Current Medications Acetaminophen (Tylenol Tab) 650 mg Q6 PRN GTB PAIN Last administered on 04:49; Admin Dose 650 MG; Start 07/07/16 at 12:00 Apixaban (Eliquis) 5 mg BID GTB Last administered on 07/18/16 10:26; Admin Dose 5 MG; Start 07/07/16 at 21:00 Bisacodyl (Dulcolax Supp) 10 mg PRN [place] ; Start 07/07/16 at 12:00 Carvedilol (Coreg) 3.125 mg BID GTB Last administered on 07/18/16 10:26; Admin Dose 3.125 MG; Start 07/07/16 at 21:00 Chlorhexidine Gluconate (Peridex) 15 ml Q12 MM Last administered on 07/18/16 10:23; Admin Dose 15 ML; Start 07/07/16 at 21:00 Clonazepam (Klonopin) 0.5 mg TID GTB Last administered on 07/18/16 13:16; Admin Dose 0.5 MG; Start 07/07/16 at 13:00 Fentanyl (Duragesic 50 Mcg/Hr Patch) 1 patch Q72H TRANSDERM Last administered on 07/17/16 13:17; Admin Dose 1 PATCH; Start 07/08/16 at 12:00 Ferrous Sulfate (Feosol Liquid Cup) 330 mg BID GTB Last administered on 10:24; Admin Dose 330 MG; Start 07/07/16 at 21:00 Insulin Glargine (Lantus) 10 unit QHS SC Last administered on 07/17/16 21:34; Admin Dose 10 UNIT; Start 07/07/16 at 21:00 Lansoprazole (Prevacid) 30 mg DAILY GTB Last administered on 07/18/16 10:25; Admin Dose 30 MG; Start 07/08/16 at 09:00 Levalbuterol (Xopenex Neb) 0.63 mg Q6H PRN NEB WHEEZING AND SOB Last administered on 07/14/16 22:47; Admin Dose 0.63 MG; Start 07/07/16 at 12:00 Magnesium Hydroxide (Milk Of Mag) 30 ml DAILY PRN GTB CONSTIPATION; Start 07/07 at 12:00 Metoclopramide HCl (Reglan) 10 mg Q6 PRN GTB NAUSEA AND/OR VOMITING; Start at 17:00 Sodium Biphosphate/ Sodium Phosphate (Fleet Enema) 135 ml PRN PRN [place] severe constipation; Start 07/07/16 at 17:00 Quetiapine Fumarate (Seroquel) 12.5 mg DAILY GTB Last administered on 10:25; Admin Dose 12.5 MG; Start 07/08/16 at 09:00 Valsartan (Diovan) 80 mg DAILY GTB Last administered on 07/18/16 10:25; Admin Dose 80 MG; Start 07/08/16 at 09:00 Zinc Sulfate (Zinc Sulfate) 220 mg DAILY GTB Last administered on 07/18/16 10: 25; Admin Dose 220 MG; Start 07/08/16 at 09:00 Multivitamins (Thera-Plus) 5 ml DAILY GTB Last administered on 07/18/16 10:23 ; Admin Dose 5 ML; Start 07/08/16 at 09:00 Ascorbic Acid (Vitamin C) 500 mg DAILY GTB Last administered on 07/18/16 13:17 ; Admin Dose 500 MG; Start 07/08/16 at 09:00 Miscellaneous Information 1 ea NOTE XX ; Start 07/07/16 at 17:30 Glucose (Glutose) 15 gm Q15M PRN PO DECREASED GLUCOSE; Start 07/07/16 at 17:30 Glucose (Glutose) 22.5 gm Q15M PRN PO DECREASED GLUCOSE; Start 07/07/16 at 17: 30 Dextrose (D50w Syringe) 25 ml Q15M PRN IV DECREASED GLUCOSE; Start 07/07/16 at 17:30 Dextrose (D50w Syringe) 50 ml Q15M PRN IV DECREASED GLUCOSE; Start 07/07/16 at 17:30 Glucagon (Glucagen) 1 mg Q15M PRN IM DECREASED GLUCOSE; Start 07/07/16 at 17:30 Glucose (Glutose) 15 gm Q15M PRN BUCCAL DECREASED GLUCOSE; Start 07/07/16 at 17 :30 Sodium Hypochlorite (Dakin'S (1/4 Strength)) 1 applic QHS IRR Last administered on 07/17/16 21:32; Admin Dose 1 APPLIC; Start 07/11/16 at 21:00 Docusate Sodium (Colace Liquid Cup) 100 mg DAILY GTB Last administered on 10:24; Admin Dose 100 MG; Start 07/12/16 at 10:00 Linezolid (Zyvox) 600 mg BID PO Last administered on 07/18/16 10:25; Admin Dose 600 MG; Start 07/12/16 at 21:00 Amikacin Sulfate AMIKACIN PER PHARMACY NOTE XX ; Start 07/12/16 at 13:30 Amikacin Sulfate/ Sodium Chloride (Amikacin/NS) 104 ml @ 102 mls/hr Q36H IVPB Last administered on 07/17/16 04:49; Admin Dose 102 MLS/HR; Start 07/12/16 at 16: 00 Silver Sulfadiazine (Thermazene 1% 25 Gm) 1 applic DAILY TOP Last administered on 07/18/16 10:28; Admin Dose 1 APPLIC; Start 07/14/16 at 09:00 Insulin Aspart (Novolog Insulin Pen) NOVOLOG *MILD* ALGORI... Q6 SC Last administered on 07/18/16 13:22; Admin Dose 2 UNIT; Start 07/14/16 at 12:00 Metronidazole (Flagyl) 500 mg Q8 NGT Last administered on 07/18/16 15:01; Admin Dose 500 MG; Start 07/14/16 at 15:30 JEFF SERNA NP Jul 18, 2016 15:14
[2016-07-18] MEDS: AMIKACIN 1,000 MG in SOD CHLORIDE 0.9% 100 ML IVPB SCH (16:57)
--- NOTE | 2016-07-18 19:02 | PN ---
Date/Time of Note Date/Time of Note DATE: 07/18/16 TIME: 19:01 Assessment/Plan VTE Prophylaxis VTE Prophylaxis Intervention: other Lines/Catheters IV [facility] (from [facility]): Peripheral IV Urinary Cath still in place: Yes Assessment/Plan Assessment/Plan 1. Acute on chronic respiratory failure secondary to pneumonia. Dr. Mcbride is following in pulmonology consultation. Continue ventilator support and bronchodilators. 2. Sepsis, resolving. continue broad-spectrum antibiotics. Dr. Hernadez is following in infectious disease consultation. 3. Acute anemia, with a drop in hemoglobin to 6.9. Status post blood transfusion. Dr. Dowd is following in gastroenterology consultation, stool for OB is negative. Dr. Storey is following patient in hematology consultation. 4. 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 Dr. Sanchez is following in podiatry consultation 5. History of CVA with left-sided hemiplegia. 6. Cardiomyopathy, with an ejection fraction of 45%. 7. Diastolic dysfunction congestive heart failure. 8. Chronic pain syndrome. 9. Ventilator-dependent respiratory failure with tracheostomy. 10. Dysphagia with G-tube placement. 11. Multiple wounds present on admission. 12. Prevacid for GI prophylaxis 13. SCD for deep venous thrombosis prophylaxis. Further recommendations based on clinical course. Plan of care discussed with Dr. Suarez. Further recommendations based on clinical course. Plan of care discussed with Dr. Suarez. Subjective 24 Hr Interval Summary Constitutional: requiring IVF, requiring O2 Exam/Review of Systems Vital Signs Vitals Vital Signs Date Time Temp Pulse Resp B/P Pulse Ox O2 Delivery O2 Flow Rate FiO2 07/18/16 17:15 80 21 98 30 07/18/16 15:59 98.0 140/68 07/18/16 06:06 Mechanical Ventilator Intake and Output 07/17/16 07/17/16 07/18/16 15:00 23:00 07:00 Intake Total 1260 ml 1170 ml Output Total 650 ml 1400 ml Balance 610 ml -230 ml Exam Psych: nl mood/affect ENMT: nl external ears & nose Cardiovascular: nl pulses Gastrointestinal: non-tender, soft Musculoskeletal: other Extremities: normal pulses Neurological: confused Skin: other Lymph: nontender Results Result Diagram: 07/18/16 0535 07/18/16 0535 Results 24 hrs Laboratory Tests Test 07/17/16 23:18 07/18/16 05:30 07/18/16 05:35 07/18/16 13:05 Bedside Glucose 188 198 201 White Blood Count 16.0 H Red Blood Count 3.60 L Hemoglobin 9.7 L Hematocrit 33.2 L Mean Corpuscular Volume 92.2 Mean Corpuscular Hemoglobin 26.9 L Mean Corpuscular Hemoglobin Concent 29.2 L Red Cell Distribution Width 20.8 H Platelet Count 607 H Mean Platelet Volume 10.8 H Neutrophils % 64.6 Lymphocytes % 21.8 Monocytes % 9.0 Eosinophils % 3.3 Basophils % 0.6 Nucleated Red Blood Cells % 0.0 Neutrophils # 10.3 H Lymphocytes # 3.5 H Monocytes # 1.4 H Eosinophils # 0.5 Basophils # 0.1 Nucleated Red Blood Cells # 0.0 Sodium Level 137 Potassium Level 4.1 Chloride Level 96 L Carbon Dioxide Level 31 Anion Gap 14 Blood Urea Nitrogen 22 H Creatinine 0.58 Glucose Level 207 Calcium Level 9.8 Test 07/18/16 18:53 Bedside Glucose 198 Medications Medications Current Medications Acetaminophen (Tylenol Tab) 650 mg Q6 PRN GTB PAIN Last administered on 04:49; Admin Dose 650 MG; Start 07/07/16 at 12:00 Apixaban (Eliquis) 5 mg BID GTB Last administered on 07/18/16 10:26; Admin Dose 5 MG; Start 07/07/16 at 21:00 Bisacodyl (Dulcolax Supp) 10 mg PRN [place] ; Start 07/07/16 at 12:00 Carvedilol (Coreg) 3.125 mg BID GTB Last administered on 07/18/16 10:26; Admin Dose 3.125 MG; Start 07/07/16 at 21:00 Chlorhexidine Gluconate (Peridex) 15 ml Q12 MM Last administered on 07/18/16 10:23; Admin Dose 15 ML; Start 07/07/16 at 21:00 Clonazepam (Klonopin) 0.5 mg TID GTB Last administered on 07/18/16 13:16; Admin Dose 0.5 MG; Start 07/07/16 at 13:00 Fentanyl (Duragesic 50 Mcg/Hr Patch) 1 patch Q72H TRANSDERM Last administered on 07/17/16 13:17; Admin Dose 1 PATCH; Start 07/08/16 at 12:00 Ferrous Sulfate (Feosol Liquid Cup) 330 mg BID GTB Last administered on 10:24; Admin Dose 330 MG; Start 07/07/16 at 21:00 Insulin Glargine (Lantus) 10 unit QHS SC Last administered on 07/17/16 21:34; Admin Dose 10 UNIT; Start 07/07/16 at 21:00 Lansoprazole (Prevacid) 30 mg DAILY GTB Last administered on 07/18/16 10:25; Admin Dose 30 MG; Start 07/08/16 at 09:00 Levalbuterol (Xopenex Neb) 0.63 mg Q6H PRN NEB WHEEZING AND SOB Last administered on 07/14/16 22:47; Admin Dose 0.63 MG; Start 07/07/16 at 12:00 Magnesium Hydroxide (Milk Of Mag) 30 ml DAILY PRN GTB CONSTIPATION; Start 07/07 at 12:00 Metoclopramide HCl (Reglan) 10 mg Q6 PRN GTB NAUSEA AND/OR VOMITING; Start at 17:00 Sodium Biphosphate/ Sodium Phosphate (Fleet Enema) 135 ml PRN PRN [place] severe constipation; Start 07/07/16 at 17:00 Quetiapine Fumarate (Seroquel) 12.5 mg DAILY GTB Last administered on 10:25; Admin Dose 12.5 MG; Start 07/08/16 at 09:00 Valsartan (Diovan) 80 mg DAILY GTB Last administered on 07/18/16 10:25; Admin Dose 80 MG; Start 07/08/16 at 09:00 Zinc Sulfate (Zinc Sulfate) 220 mg DAILY GTB Last administered on 07/18/16 10: 25; Admin Dose 220 MG; Start 07/08/16 at 09:00 Multivitamins (Thera-Plus) 5 ml DAILY GTB Last administered on 07/18/16 10:23 ; Admin Dose 5 ML; Start 07/08/16 at 09:00 Ascorbic Acid (Vitamin C) 500 mg DAILY GTB Last administered on 07/18/16 13:17 ; Admin Dose 500 MG; Start 07/08/16 at 09:00 Miscellaneous Information 1 ea NOTE XX ; Start 07/07/16 at 17:30 Glucose (Glutose) 15 gm Q15M PRN PO DECREASED GLUCOSE; Start 07/07/16 at 17:30 Glucose (Glutose) 22.5 gm Q15M PRN PO DECREASED GLUCOSE; Start 07/07/16 at 17: 30 Dextrose (D50w Syringe) 25 ml Q15M PRN IV DECREASED GLUCOSE; Start 07/07/16 at 17:30 Dextrose (D50w Syringe) 50 ml Q15M PRN IV DECREASED GLUCOSE; Start 07/07/16 at 17:30 Glucagon (Glucagen) 1 mg Q15M PRN IM DECREASED GLUCOSE; Start 07/07/16 at 17:30 Glucose (Glutose) 15 gm Q15M PRN BUCCAL DECREASED GLUCOSE; Start 07/07/16 at 17 :30 Sodium Hypochlorite (Dakin'S (1/4 Strength)) 1 applic QHS IRR Last administered on 07/17/16 21:32; Admin Dose 1 APPLIC; Start 07/11/16 at 21:00 Docusate Sodium (Colace Liquid Cup) 100 mg DAILY GTB Last administered on 10:24; Admin Dose 100 MG; Start 07/12/16 at 10:00 Linezolid (Zyvox) 600 mg BID PO Last administered on 07/18/16 10:25; Admin Dose 600 MG; Start 07/12/16 at 21:00 Amikacin Sulfate AMIKACIN PER PHARMACY NOTE XX ; Start 07/12/16 at 13:30 Amikacin Sulfate/ Sodium Chloride (Amikacin/NS) 104 ml @ 102 mls/hr Q36H IVPB Last administered on 07/18/16 16:57; Admin Dose 102 MLS/HR; Start 07/12/16 at 16 :00 Silver Sulfadiazine (Thermazene 1% 25 Gm) 1 applic DAILY TOP Last administered on 07/18/16 10:28; Admin Dose 1 APPLIC; Start 07/14/16 at 09:00 Insulin Aspart (Novolog Insulin Pen) NOVOLOG *MILD* ALGORI... Q6 SC Last administered on 07/18/16 13:22; Admin Dose 2 UNIT; Start 07/14/16 at 12:00 Metronidazole (Flagyl) 500 mg Q8 NGT Last administered on 4/10/17at 15:01; Admin Dose 500 MG; Start 07/14/16 at 15:30 JUAN POSADA Jul 18, 2016 19:02
[2016-07-18] MEDS: SODIUM HYPOCHLORITE 0.125% 473 ML BTL IRR SCH (21:12)
[2016-07-18] MEDS: INSULIN GLARGINE [LANtus] 3 ML PEN SC SCH (21:15)
[2016-07-19] VITALS (29 sets, daily range): BP systolic 107–146; BP diastolic 55–73; PULSE 78–100; RESP 14–27
[2016-07-19] MEDS: metroNIDAZOLE 500 MG TAB NGT SCH ×4 (01:33→21:49)
[2016-07-19] MEDS: ZYVOX 600 MG TAB PO SCH ×3 (01:34→21:49)
[2016-07-19] MEDS: INSULIN ASPART [NOVOLOG] 3 ML PEN SC SCH ×3 (01:36→12:58)
[2016-07-19] MEDS: COLISTIMETHATE (25 MG/ML INHAL SYG) NEB SCH ×2 (07:12→19:36)
[2016-07-19 08:39] LABS: ADD SCAN DIFF NO
[2016-07-19 08:48] LABS: BASOPHIL # 0.1 10^3/ul (0.0-0.1); BASOPHILS % 0.6 % (0.0-2.0); EOSINOPHILS # 0.5 10^3/ul (0.0-0.5); EOSINOPHILS % 3.1 % (0.0-7.0); HEMATOCRIT 32.8 % (37.0-47.0); HEMOGLOBIN 9.8 g/dl (12.0-16.0); LYMPHOCYTES # 3.1 10^3/ul (0.8-2.9); MEAN CORPUSCULAR HEMOGLOBIN 27.5 pg (29.0-33.0); MEAN CORPUSCULAR HGB CONC 29.9 g/dl (32.0-37.0); MEAN CORPUSCULAR VOLUME 91.9 fl (82.0-101.0); MEAN PLATELET VOLUME 10.7 fl (7.4-10.4); MONOCYTE # 1.2 10^3/ul (0.3-0.9); MONOCYTES % 7.9 % (0.0-11.0); NEUTROPHIL # 10.6 10^3/ul (1.6-7.5); NEUTROPHILS % 67.6 % (39.0-77.0); PLATELET COUNT 615 10^3/UL (140-415); RED BLOOD COUNT 3.57 10^6/ul (4.20-5.40); RED CELL DISTRIBUTION WIDTH 20.6 % (11.5-14.5); WHITE BLOOD COUNT 15.7 10^3/ul (4.8-10.8)
[2016-07-19 09:03] LABS: CALCIUM 9.3 mg/dl (8.4-10.2); CREATININE 0.66 mg/dl (0.44-1.00); POTASSIUM 4.6 mmol/L (3.5-5.1)
[2016-07-19] MEDS: MULTIVITAMINS 5 ML CUP GTB SCH (09:34)
[2016-07-19] MEDS: DOCUSATE SODIUM 10 MG/ML (10ML CUP) GTB SCH (09:34)
[2016-07-19] MEDS: CHLORHEXIDINE GLUCONATE 15 ML UD CUP MM SCH ×2 (09:34→21:48)
[2016-07-19] MEDS: clonAZEPAM 0.5 MG TAB GTB SCH ×3 (09:35→22:02)
[2016-07-19] MEDS: ZINC SULFATE 220 MG CAP GTB SCH (09:35)
[2016-07-19] MEDS: LANSOPRAZOLE 30 MG CAP GTB SCH (09:35)
[2016-07-19] MEDS: QUETIAPINE 25 MG TAB GTB SCH (09:35)
[2016-07-19] MEDS: ASCORBIC ACID 500 MG TAB GTB SCH (09:35)
[2016-07-19] MEDS: FERROUS SULFATE 60 MG/ML 5ML CUP GTB SCH ×2 (09:35→21:48)
[2016-07-19] MEDS: VALSARTAN 80 MG TAB GTB SCH (09:36)
[2016-07-19] MEDS: SILVER SULFADIAZINE 1% 25 GM CR TOP SCH (09:36)
[2016-07-19] MEDS: APIXABAN 5 MG TABLET GTB SCH ×2 (09:36→21:49)
--- NOTE | 2016-07-19 10:51 | CONS ---
Date/Time of Note Date/Time of Note DATE: 07/19/16 TIME: 10:49 Assessment/Plan Assessment/Plan Additional Assessment/Plan Ventilator settings; AC of 14, tidal volume 500, PEEP of 5, 30% FiO2. Assessment recommendations; next 1. Patient admitted for sepsis likely from gangrene involving the left foot. The patient's family apparently does not want amputation to be performed. 2. Chronic respiratory failure, ventilator dependent. 3. Morbid obesity. 4. Multi-infarct dementia. Continue current supportive care. Prognosis is very poor. Consultation Date/Type/Reason Admit Date/Time Jul 06, 2016 at 22:42 Initial Consult Date 07/12/16 Type of Consultation: Pulmonary Referring Provider: JOSR LORENZO MD 24 HR Interval Summary Free Text/Dictation Patient condition remains unchanged. Remains essentially unresponsive. Remains ventilator dependent. Has remained hemodynamically stable. General exam; elderly woman, appears quite obese. On ventilator via tracheostomy currently in no distress. Exam/Review of Systems Vital Signs Vitals Vital Signs Date Time Temp Pulse Resp B/P Pulse Ox O2 Delivery O2 Flow Rate FiO2 07/19/16 10:00 98.9 100 16 126/64 98 07/19/16 09:19 30 07/19/16 04:00 Ambu Bag Mechanical Ventilator Intake and Output 07/18/16 07/18/16 07/19/16 15:00 23:00 07:00 Intake Total 960 ml Output Total 1200 ml Balance -240 ml Exam HEENT exam is; supple neck, JVD difficult to see because of short neck. Tracheostomy in place. No neck masses. No thyromegaly. Chest examination; diminished but clear breath sounds. S1-S2 audible, no murmurs. Irregular rhythm. Abdomen examination; soft, G-tube in place. No organomegaly. Bowel sounds audible. Extremity examination; there is gangrene involving the left foot. Pulses are not palpable in both lower extremities. POLICY WRITER TYPIST examination; patient is unresponsive to any commands but does move all 4 extremities spontaneously. Results Result Diagram: 07/19/16 0810 07/19/16 0810 Results 24 hrs Laboratory Tests Test 07/18/16 13:05 07/18/16 18:53 07/18/16 20:36 07/19/16 01:26 Bedside Glucose 201 198 200 195 Test 07/19/16 05:44 07/19/16 08:10 Bedside Glucose 238 H White Blood Count 15.7 H Red Blood Count 3.57 L Hemoglobin 9.8 L Hematocrit 32.8 L Mean Corpuscular Volume 91.9 Mean Corpuscular Hemoglobin 27.5 L Mean Corpuscular Hemoglobin Concent 29.9 L Red Cell Distribution Width 20.6 H Platelet Count 615 H Mean Platelet Volume 10.7 H Neutrophils % 67.6 Lymphocytes % 20.0 Monocytes % 7.9 Eosinophils % 3.1 Basophils % 0.6 Nucleated Red Blood Cells % 0.0 Neutrophils # 10.6 H Lymphocytes # 3.1 H Monocytes # 1.2 H Eosinophils # 0.5 Basophils # 0.1 Nucleated Red Blood Cells # 0.0 Sodium Level 137 Potassium Level 4.6 Chloride Level 98 Carbon Dioxide Level 31 Anion Gap 13 Blood Urea Nitrogen 25 H Creatinine 0.66 Glucose Level 206 Calcium Level 9.3 Medications Medications Current Medications Acetaminophen (Tylenol Tab) 650 mg Q6 PRN GTB PAIN Last administered on 04:49; Admin Dose 650 MG; Start 07/07/16 at 12:00 Apixaban (Eliquis) 5 mg BID GTB Last administered on 07/19/16 09:36; Admin Dose 5 MG; Start 07/07/16 at 21:00 Bisacodyl (Dulcolax Supp) 10 mg PRN [place] ; Start 07/07/16 at 12:00 Carvedilol (Coreg) 3.125 mg BID GTB Last administered on 07/19/16 09:35; Admin Dose 3.125 MG; Start 07/07/16 at 21:00 Chlorhexidine Gluconate (Peridex) 15 ml Q12 MM Last administered on 07/19/16 09:34; Admin Dose 15 ML; Start 07/07/16 at 21:00 Clonazepam (Klonopin) 0.5 mg TID GTB Last administered on 07/19/16 09:35; Admin Dose 0.5 MG; Start 07/07/16 at 13:00 Fentanyl (Duragesic 50 Mcg/Hr Patch) 1 patch Q72H TRANSDERM Last administered on 07/17/16 13:17; Admin Dose 1 PATCH; Start 07/08/16 at 12:00 Ferrous Sulfate (Feosol Liquid Cup) 330 mg BID GTB Last administered on 09:35; Admin Dose 330 MG; Start 07/07/16 at 21:00 Insulin Glargine (Lantus) 10 unit QHS SC Last administered on 07/18/16 21:15; Admin Dose 10 UNIT; Start 07/07/16 at 21:00 Lansoprazole (Prevacid) 30 mg DAILY GTB Last administered on 07/19/16 09:35; Admin Dose 30 MG; Start 07/08/16 at 09:00 Levalbuterol (Xopenex Neb) 0.63 mg Q6H PRN NEB WHEEZING AND SOB Last administered on 07/14/16 22:47; Admin Dose 0.63 MG; Start 07/07/16 at 12:00 Magnesium Hydroxide (Milk Of Mag) 30 ml DAILY PRN GTB CONSTIPATION; Start 07/07 at 12:00 Metoclopramide HCl (Reglan) 10 mg Q6 PRN GTB NAUSEA AND/OR VOMITING; Start at 17:00 Sodium Biphosphate/ Sodium Phosphate (Fleet Enema) 135 ml PRN PRN [place] severe constipation; Start 07/07/16 at 17:00 Quetiapine Fumarate (Seroquel) 12.5 mg DAILY GTB Last administered on 09:35; Admin Dose 12.5 MG; Start 07/08/16 at 09:00 Valsartan (Diovan) 80 mg DAILY GTB Last administered on 07/19/16 09:36; Admin Dose 80 MG; Start 07/08/16 at 09:00 Zinc Sulfate (Zinc Sulfate) 220 mg DAILY GTB Last administered on 07/19/16 09: 35; Admin Dose 220 MG; Start 07/08/16 at 09:00 Multivitamins (Thera-Plus) 5 ml DAILY GTB Last administered on 07/19/16 09:34 ; Admin Dose 5 ML; Start 07/08/16 at 09:00 Ascorbic Acid (Vitamin C) 500 mg DAILY GTB Last administered on 07/19/16 09:35 ; Admin Dose 500 MG; Start 07/08/16 at 09:00 Miscellaneous Information 1 ea NOTE XX ; Start 07/07/16 at 17:30 Glucose (Glutose) 15 gm Q15M PRN PO DECREASED GLUCOSE; Start 07/07/16 at 17:30 Glucose (Glutose) 22.5 gm Q15M PRN PO DECREASED GLUCOSE; Start 07/07/16 at 17: 30 Dextrose (D50w Syringe) 25 ml Q15M PRN IV DECREASED GLUCOSE; Start 07/07/16 at 17:30 Dextrose (D50w Syringe) 50 ml Q15M PRN IV DECREASED GLUCOSE; Start 07/07/16 at 17:30 Glucagon (Glucagen) 1 mg Q15M PRN IM DECREASED GLUCOSE; Start 07/07/16 at 17:30 Glucose (Glutose) 15 gm Q15M PRN BUCCAL DECREASED GLUCOSE; Start 07/07/16 at 17 :30 Sodium Hypochlorite (Dakin'S (1/4 Strength)) 1 applic QHS IRR Last administered on 07/18/16 21:12; Admin Dose 1 APPLIC; Start 07/11/16 at 21:00 Docusate Sodium (Colace Liquid Cup) 100 mg DAILY GTB Last administered on 09:34; Admin Dose 100 MG; Start 07/12/16 at 10:00 Linezolid (Zyvox) 600 mg BID PO Last administered on 07/19/16 09:36; Admin Dose 600 MG; Start 07/12/16 at 21:00 Amikacin Sulfate AMIKACIN PER PHARMACY NOTE XX ; Start 07/12/16 at 13:30 Amikacin Sulfate/ Sodium Chloride (Amikacin/NS) 104 ml @ 102 mls/hr Q36H IVPB Last administered on 07/18/16 16:57; Admin Dose 102 MLS/HR; Start 07/12/16 at 16 :00 Silver Sulfadiazine (Thermazene 1% 25 Gm) 1 applic DAILY TOP Last administered on 07/19/16 09:36; Admin Dose 1 APPLIC; Start 07/14/16 at 09:00 Insulin Aspart (Novolog Insulin Pen) NOVOLOG *MILD* ALGORI... Q6 SC Last administered on 07/19/16 05:49; Admin Dose 3 UNIT; Start 07/14/16 at 12:00 Metronidazole (Flagyl) 500 mg Q8 NGT Last administered on 07/19/16 05:46; Admin Dose 500 MG; Start 07/14/16 at 15:30 STEVE JONES Jul 19, 2016 10:51
[2016-07-19] MEDS ORDERED: INSULIN ASPART [NOVOLOG] 3 ML PEN SC SCH ×2 (13:05→18:00)
--- NOTE | 2016-07-19 13:29 | CONS ---
Date/Time of Note Date/Time of Note DATE: 07/19/16 TIME: 13:24 Assessment/Plan Assessment/Plan Chief Complaint/Hosp Course SUBJECTIVE: No events overnight, afebrile, nad MICROBIOLOGY: Wound culture grew Pseudomonas aeruginosa, Providencia stuartii, VRE INDWELLINGS: Trach, PEG, Rivera. ANTIMICROBIALS: The patient is on: 1. Zyvox 2. Colistin inhalation. 3. Amikacin. 4. Flagyl PHYSICAL EXAMINATION: GENERAL: This is a chronically ill-appearing, elderly woman who is in no distress. HEENT: Head atraumatic, normocephalic. Sclerae anicteric. Buccal mucosa dry. NECK: Supple. Tracheostomy present. CHEST: Rise symmetrical. Breath sounds diminished to bases. HEART: S1, S2. ABDOMEN: Soft. Bowel tones present. EXTREMITIES: Left foot gangrene ASSESSMENT: 1. Persistent leukocytosis, likely 2 to #2 , rule out myelodysplasia. 2. Left foot gangrene with open wound culture growing multi-drug resistant organisms. 3. Chronic respiratory failure. 4. Dysphagia. 5. Chronic encephalopathy. 6. Severe peripheral arterial and vascular disease, not a candidate for revascularization procedure per previous admission vascular note. 7. Diabetes. PLAN: Remains unchanged, Flagyl was added for anaerobic coverage, continue abx , local wound care, management as per primary team and consultants. The patient is DNR status. staff Problems: Consultation Date/Type/Reason Admit Date/Time Jul 06, 2016 at 22:42 Initial Consult Date 07/12/16 Type of Consultation: id Referring Provider: JOSR LORENZO MD Exam/Review of Systems Vital Signs Vitals Vital Signs Date Time Temp Pulse Resp B/P Pulse Ox O2 Delivery O2 Flow Rate FiO2 07/19/16 13:10 100 27 99 30 07/19/16 11:58 98.6 142/63 07/19/16 04:00 Ambu Bag Mechanical Ventilator Intake and Output 07/18/16 07/18/16 07/19/16 15:00 23:00 07:00 Intake Total 960 ml Output Total 1200 ml Balance -240 ml Results Result Diagram: 07/19/16 0810 07/19/16 0810 Results 24 hrs Laboratory Tests Test 07/18/16 18:53 07/18/16 20:36 07/19/16 01:26 07/19/16 05:44 Bedside Glucose 198 200 195 238 H Test 07/19/16 08:10 07/19/16 12:26 White Blood Count 15.7 H Red Blood Count 3.57 L Hemoglobin 9.8 L Hematocrit 32.8 L Mean Corpuscular Volume 91.9 Mean Corpuscular Hemoglobin 27.5 L Mean Corpuscular Hemoglobin Concent 29.9 L Red Cell Distribution Width 20.6 H Platelet Count 615 H Mean Platelet Volume 10.7 H Neutrophils % 67.6 Lymphocytes % 20.0 Monocytes % 7.9 Eosinophils % 3.1 Basophils % 0.6 Nucleated Red Blood Cells % 0.0 Neutrophils # 10.6 H Lymphocytes # 3.1 H Monocytes # 1.2 H Eosinophils # 0.5 Basophils # 0.1 Nucleated Red Blood Cells # 0.0 Sodium Level 137 Potassium Level 4.6 Chloride Level 98 Carbon Dioxide Level 31 Anion Gap 13 Blood Urea Nitrogen 25 H Creatinine 0.66 Glucose Level 206 Calcium Level 9.3 Bedside Glucose 221 H Medications Medications Current Medications Acetaminophen (Tylenol Tab) 650 mg Q6 PRN GTB PAIN Last administered on 04:49; Admin Dose 650 MG; Start 07/07/16 at 12:00 Apixaban (Eliquis) 5 mg BID GTB Last administered on 07/19/16 09:36; Admin Dose 5 MG; Start 07/07/16 at 21:00 Bisacodyl (Dulcolax Supp) 10 mg PRN [place] ; Start 07/07/16 at 12:00 Carvedilol (Coreg) 3.125 mg BID GTB Last administered on 07/19/16 09:35; Admin Dose 3.125 MG; Start 07/07/16 at 21:00 Chlorhexidine Gluconate (Peridex) 15 ml Q12 MM Last administered on 07/19/16 09:34; Admin Dose 15 ML; Start 07/07/16 at 21:00 Clonazepam (Klonopin) 0.5 mg TID GTB Last administered on 07/19/16 12:53; Admin Dose 0.5 MG; Start 07/07/16 at 13:00 Fentanyl (Duragesic 50 Mcg/Hr Patch) 1 patch Q72H TRANSDERM Last administered on 07/17/16 13:17; Admin Dose 1 PATCH; Start 07/08/16 at 12:00 Ferrous Sulfate (Feosol Liquid Cup) 330 mg BID GTB Last administered on 09:35; Admin Dose 330 MG; Start 07/07/16 at 21:00 Insulin Glargine (Lantus) 10 unit QHS SC Last administered on 07/18/16 21:15; Admin Dose 10 UNIT; Start 07/07/16 at 21:00 Lansoprazole (Prevacid) 30 mg DAILY GTB Last administered on 07/19/16 09:35; Admin Dose 30 MG; Start 07/08/16 at 09:00 Levalbuterol (Xopenex Neb) 0.63 mg Q6H PRN NEB WHEEZING AND SOB Last administered on 07/14/16 22:47; Admin Dose 0.63 MG; Start 07/07/16 at 12:00 Magnesium Hydroxide (Milk Of Mag) 30 ml DAILY PRN GTB CONSTIPATION; Start 07/07 at 12:00 Metoclopramide HCl (Reglan) 10 mg Q6 PRN GTB NAUSEA AND/OR VOMITING; Start at 17:00 Sodium Biphosphate/ Sodium Phosphate (Fleet Enema) 135 ml PRN PRN [place] severe constipation; Start 07/07/16 at 17:00 Quetiapine Fumarate (Seroquel) 12.5 mg DAILY GTB Last administered on 09:35; Admin Dose 12.5 MG; Start 07/08/16 at 09:00 Valsartan (Diovan) 80 mg DAILY GTB Last administered on 07/19/16 09:36; Admin Dose 80 MG; Start 07/08/16 at 09:00 Zinc Sulfate (Zinc Sulfate) 220 mg DAILY GTB Last administered on 07/19/16 09: 35; Admin Dose 220 MG; Start 07/08/16 at 09:00 Multivitamins (Thera-Plus) 5 ml DAILY GTB Last administered on 07/19/16 09:34 ; Admin Dose 5 ML; Start 07/08/16 at 09:00 Ascorbic Acid (Vitamin C) 500 mg DAILY GTB Last administered on 07/19/16 09:35 ; Admin Dose 500 MG; Start 07/08/16 at 09:00 Miscellaneous Information 1 ea NOTE XX ; Start 07/07/16 at 17:30 Glucose (Glutose) 15 gm Q15M PRN PO DECREASED GLUCOSE; Start 07/07/16 at 17:30 Glucose (Glutose) 22.5 gm Q15M PRN PO DECREASED GLUCOSE; Start 07/07/16 at 17: 30 Dextrose (D50w Syringe) 25 ml Q15M PRN IV DECREASED GLUCOSE; Start 07/07/16 at 17:30 Dextrose (D50w Syringe) 50 ml Q15M PRN IV DECREASED GLUCOSE; Start 07/07/16 at 17:30 Glucagon (Glucagen) 1 mg Q15M PRN IM DECREASED GLUCOSE; Start 07/07/16 at 17:30 Glucose (Glutose) 15 gm Q15M PRN BUCCAL DECREASED GLUCOSE; Start 07/07/16 at 17 :30 Sodium Hypochlorite (Dakin'S (1/4 Strength)) 1 applic QHS IRR Last administered on 07/18/16 21:12; Admin Dose 1 APPLIC; Start 07/11/16 at 21:00 Docusate Sodium (Colace Liquid Cup) 100 mg DAILY GTB Last administered on 09:34; Admin Dose 100 MG; Start 07/12/16 at 10:00 Linezolid (Zyvox) 600 mg BID PO Last administered on 07/19/16 09:36; Admin Dose 600 MG; Start 07/12/16 at 21:00 Amikacin Sulfate AMIKACIN PER PHARMACY NOTE XX ; Start 07/12/16 at 13:30 Amikacin Sulfate/ Sodium Chloride (Amikacin/NS) 104 ml @ 102 mls/hr Q36H IVPB Last administered on 07/18/16 16:57; Admin Dose 102 MLS/HR; Start 07/12/16 at 16 :00 Silver Sulfadiazine (Thermazene 1% 25 Gm) 1 applic DAILY TOP Last administered on 07/19/16 09:36; Admin Dose 1 APPLIC; Start 07/14/16 at 09:00 Metronidazole (Flagyl) 500 mg Q8 NGT Last administered on 07/19/16 12:53; Admin Dose 500 MG; Start 07/14/16 at 15:30 Insulin Aspart (Novolog Insulin Pen) NOVOLOG *MILD* ALGORI... Q6 SC ; Start 02/24 at 18:00 JEFF SERNA NP Jul 19, 2016 13:29
--- NOTE | 2016-07-19 16:24 | CONS ---
Date/Time of Note Date/Time of Note DATE: 07/19/16 TIME: 16:20 Assessment/Plan Assessment/Plan Chief Complaint/Hosp Course 66 yo anemia in the setting of leukocytosis and thrombocytosis. Pt is septic and has multiple sources of infection decubitus ulcers and eft foot gangrene with open wound culture growing multi-drug resistant organisms. It is likely that patient's anemia is secondary to chronic inflammation. Still given the persistent leukocytosis and thrombocytosis despite broad spectrum antibiotics, it is necessary to rule out a myeloproliferative disorder. # Anemia -pt does have mild iron deficiency anemia as evidenced by the iron saturation of 8%. Pt also has a component of anemia from chronic inflammation evidenced by low TIBC and high ferritin. -Given the epo level of just 32.5 and Hg > 9 will cont Epogen 10,000 unit q week. -currently on ferrous sulfate per g tube. s/p IV iron Ferrlecit for 3 days 07/15- 07/17 -normal LDH makes hemolysis unlikely -given the borderline Vitamin b12 and folate will check methylmalonic acid level and homocysteine level to see if patient would benefit from Vitamin B12 or folate supplementation #Leukocytosis -likely reactive -Flow cytometry was negative and did not reveal any evidence of hemologic malignancy. JAK2 [id number] mutation and BCR/ABL1 translocation not detected. #Thrombocytosis -likely reactive -peripheral smear showed --- Normochromic normocytic anemia, moderate. -- Leukocytosis with mild monocytosis and eosinophilia. -- No circulating blasts identified. -Flow, JAK2 and BCR/ABL negative as above -high platelet count can increase chance of thrombosis but pt already on eliquis Will sign off, call with questions, can follow up as an outpatient if needed. Problems: Consultation Date/Type/Reason Admit Date/Time Jul 06, 2016 at 22:42 Initial Consult Date 07/12/16 Type of Consultation: id Referring Provider: JOSR LORENZO MD 24 HR Interval Summary Free Text/Dictation No acute events. Exam/Review of Systems Vital Signs Vitals Vital Signs Date Time Temp Pulse Resp B/P Pulse Ox O2 Delivery O2 Flow Rate FiO2 07/19/16 16:05 98.9 97 16 117/73 98 07/19/16 15:24 30 07/19/16 04:00 Ambu Bag Mechanical Ventilator Intake and Output 07/18/16 07/18/16 07/19/16 15:00 23:00 07:00 Intake Total 960 ml Output Total 1200 ml Balance -240 ml Exam Constitutional: non-verbal, other (agitated) Psych: confusion Head: normocephalic Eyes: nl conjunctiva Neck: other (trach in place) Gastrointestinal: other (G tube in place), soft Musculoskeletal: nl extremities to inspection, nl gait and stance Results Result Diagram: 07/19/16 0810 07/19/16 0810 Results 24 hrs Laboratory Tests Test 07/18/16 18:53 07/18/16 20:36 07/19/16 01:26 07/19/16 05:44 Bedside Glucose 198 200 195 238 H Test 07/19/16 08:10 07/19/16 12:26 White Blood Count 15.7 H Red Blood Count 3.57 L Hemoglobin 9.8 L Hematocrit 32.8 L Mean Corpuscular Volume 91.9 Mean Corpuscular Hemoglobin 27.5 L Mean Corpuscular Hemoglobin Concent 29.9 L Red Cell Distribution Width 20.6 H Platelet Count 615 H Mean Platelet Volume 10.7 H Neutrophils % 67.6 Lymphocytes % 20.0 Monocytes % 7.9 Eosinophils % 3.1 Basophils % 0.6 Nucleated Red Blood Cells % 0.0 Neutrophils # 10.6 H Lymphocytes # 3.1 H Monocytes # 1.2 H Eosinophils # 0.5 Basophils # 0.1 Nucleated Red Blood Cells # 0.0 Sodium Level 137 Potassium Level 4.6 Chloride Level 98 Carbon Dioxide Level 31 Anion Gap 13 Blood Urea Nitrogen 25 H Creatinine 0.66 Glucose Level 206 Calcium Level 9.3 Bedside Glucose 221 H Medications Medications Current Medications Acetaminophen (Tylenol Tab) 650 mg Q6 PRN GTB PAIN Last administered on 04:49; Admin Dose 650 MG; Start 07/07/16 at 12:00 Apixaban (Eliquis) 5 mg BID GTB Last administered on 07/19/16 09:36; Admin Dose 5 MG; Start 07/07/16 at 21:00 Bisacodyl (Dulcolax Supp) 10 mg PRN [place] ; Start 07/07/16 at 12:00 Carvedilol (Coreg) 3.125 mg BID GTB Last administered on 07/19/16 09:35; Admin Dose 3.125 MG; Start 07/07/16 at 21:00 Chlorhexidine Gluconate (Peridex) 15 ml Q12 MM Last administered on 07/19/16 09:34; Admin Dose 15 ML; Start 07/07/16 at 21:00 Clonazepam (Klonopin) 0.5 mg TID GTB Last administered on 07/19/16 12:53; Admin Dose 0.5 MG; Start 07/07/16 at 13:00 Fentanyl (Duragesic 50 Mcg/Hr Patch) 1 patch Q72H TRANSDERM Last administered on 07/17/16 13:17; Admin Dose 1 PATCH; Start 07/08/16 at 12:00 Ferrous Sulfate (Feosol Liquid Cup) 330 mg BID GTB Last administered on 09:35; Admin Dose 330 MG; Start 07/07/16 at 21:00 Insulin Glargine (Lantus) 10 unit QHS SC Last administered on 07/18/16 21:15; Admin Dose 10 UNIT; Start 07/07/16 at 21:00 Lansoprazole (Prevacid) 30 mg DAILY GTB Last administered on 07/19/16 09:35; Admin Dose 30 MG; Start 07/08/16 at 09:00 Levalbuterol (Xopenex Neb) 0.63 mg Q6H PRN NEB WHEEZING AND SOB Last administered on 07/14/16 22:47; Admin Dose 0.63 MG; Start 07/07/16 at 12:00 Magnesium Hydroxide (Milk Of Mag) 30 ml DAILY PRN GTB CONSTIPATION; Start 07/07 at 12:00 Metoclopramide HCl (Reglan) 10 mg Q6 PRN GTB NAUSEA AND/OR VOMITING; Start at 17:00 Sodium Biphosphate/ Sodium Phosphate (Fleet Enema) 135 ml PRN PRN [place] severe constipation; Start 07/07/16 at 17:00 Quetiapine Fumarate (Seroquel) 12.5 mg DAILY GTB Last administered on 09:35; Admin Dose 12.5 MG; Start 07/08/16 at 09:00 Valsartan (Diovan) 80 mg DAILY GTB Last administered on 07/19/16 09:36; Admin Dose 80 MG; Start 07/08/16 at 09:00 Zinc Sulfate (Zinc Sulfate) 220 mg DAILY GTB Last administered on 07/19/16 09: 35; Admin Dose 220 MG; Start 07/08/16 at 09:00 Multivitamins (Thera-Plus) 5 ml DAILY GTB Last administered on 07/19/16 09:34 ; Admin Dose 5 ML; Start 07/08/16 at 09:00 Ascorbic Acid (Vitamin C) 500 mg DAILY GTB Last administered on 07/19/16 09:35 ; Admin Dose 500 MG; Start 07/08/16 at 09:00 Miscellaneous Information 1 ea NOTE XX ; Start 07/07/16 at 17:30 Glucose (Glutose) 15 gm Q15M PRN PO DECREASED GLUCOSE; Start 07/07/16 at 17:30 Glucose (Glutose) 22.5 gm Q15M PRN PO DECREASED GLUCOSE; Start 07/07/16 at 17: 30 Dextrose (D50w Syringe) 25 ml Q15M PRN IV DECREASED GLUCOSE; Start 07/07/16 at 17:30 Dextrose (D50w Syringe) 50 ml Q15M PRN IV DECREASED GLUCOSE; Start 07/07/16 at 17:30 Glucagon (Glucagen) 1 mg Q15M PRN IM DECREASED GLUCOSE; Start 07/07/16 at 17:30 Glucose (Glutose) 15 gm Q15M PRN BUCCAL DECREASED GLUCOSE; Start 07/07/16 at 17 :30 Sodium Hypochlorite (Dakin'S (1/4 Strength)) 1 applic QHS IRR Last administered on 07/18/16 21:12; Admin Dose 1 APPLIC; Start 07/11/16 at 21:00 Docusate Sodium (Colace Liquid Cup) 100 mg DAILY GTB Last administered on 09:34; Admin Dose 100 MG; Start 07/12/16 at 10:00 Linezolid (Zyvox) 600 mg BID PO Last administered on 07/19/16 09:36; Admin Dose 600 MG; Start 07/12/16 at 21:00 Amikacin Sulfate AMIKACIN PER PHARMACY NOTE XX ; Start 07/12/16 at 13:30 Amikacin Sulfate/ Sodium Chloride (Amikacin/NS) 104 ml @ 102 mls/hr Q36H IVPB Last administered on 07/18/16 16:57; Admin Dose 102 MLS/HR; Start 07/12/16 at 16 :00 Silver Sulfadiazine (Thermazene 1% 25 Gm) 1 applic DAILY TOP Last administered on 07/19/16 09:36; Admin Dose 1 APPLIC; Start 07/14/16 at 09:00 Metronidazole (Flagyl) 500 mg Q8 NGT Last administered on 07/19/16 12:53; Admin Dose 500 MG; Start 07/14/16 at 15:30 Insulin Aspart (Novolog Insulin Pen) NOVOLOG *MILD* ALGORI... Q6 SC ; Start 02/24 at 18:00 TOAPRIL MD Jul 19, 2016 16:24
[2016-07-19] MEDS: ACCU-CHEK XX SCH (17:41)
[2016-07-19] MEDS: NPH, HUMAN INSULIN ISOPHANE 3ML VIAL SC SCH (18:23)
--- NOTE | 2016-07-19 19:56 | PN ---
Date/Time of Note Date/Time of Note DATE: 07/19/16 TIME: 19:55 Assessment/Plan VTE Prophylaxis VTE Prophylaxis Intervention: other Lines/Catheters IV Catheter Type (from [facility] Saline Lock Urinary Cath still in place: Yes Assessment/Plan Assessment/Plan 1. Acute on chronic respiratory failure secondary to pneumonia. Dr. Mcbride is following in pulmonology consultation. Continue ventilator support and bronchodilators. 2. Sepsis, resolving. continue broad-spectrum antibiotics. Dr. Hernadez is following in infectious disease consultation. 3. Acute anemia, with a drop in hemoglobin to 6.9. Status post blood transfusion. Dr. Dowd is following in gastroenterology consultation, stool for OB is negative. Dr. Storey is following patient in hematology consultation. 4. 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 Dr. Sanchez is following in podiatry consultation 5. History of CVA with left-sided hemiplegia. 6. Cardiomyopathy, with an ejection fraction of 45%. 7. Diastolic dysfunction congestive heart failure. 8. Chronic pain syndrome. 9. Ventilator-dependent respiratory failure with tracheostomy. 10. Dysphagia with G-tube placement. 11. Multiple wounds present on admission. 12. Prevacid for GI prophylaxis 13. SCD for deep venous thrombosis prophylaxis. Further recommendations based on clinical course. Plan of care discussed with Dr. Suarez. Further recommendations based on clinical course. Plan of care discussed with Dr. Suarez. Exam/Review of Systems Vital Signs Vitals Vital Signs Date Time Temp Pulse Resp B/P Pulse Ox O2 Delivery O2 Flow Rate FiO2 07/19/16 18:00 98.8 96 18 123/65 98 Mechanical Ventilator 07/19/16 17:16 30 Intake and Output 07/18/16 07/18/16 07/19/16 15:00 23:00 07:00 Intake Total 960 ml Output Total 1200 ml Balance -240 ml Exam Constitutional: non-verbal Psych: confusion Eyes: EOMI, PERRL, nl sclera ENMT: nl external ears & nose Neck: non-tender Respiratory: diminished breath sounds Cardiovascular: nl pulses Gastrointestinal: non-tender, other, soft Musculoskeletal: muscle weakness Extremities: normal pulses Neurological: confused, lethargic Lymph: nontender Results Result Diagram: 07/19/16 0810 07/19/16 0810 Results 24 hrs Laboratory Tests Test 07/18/16 20:36 07/19/16 01:26 07/19/16 05:44 07/19/16 08:10 Bedside Glucose 200 195 238 H White Blood Count 15.7 H Red Blood Count 3.57 L Hemoglobin 9.8 L Hematocrit 32.8 L Mean Corpuscular Volume 91.9 Mean Corpuscular Hemoglobin 27.5 L Mean Corpuscular Hemoglobin Concent 29.9 L Red Cell Distribution Width 20.6 H Platelet Count 615 H Mean Platelet Volume 10.7 H Neutrophils % 67.6 Lymphocytes % 20.0 Monocytes % 7.9 Eosinophils % 3.1 Basophils % 0.6 Nucleated Red Blood Cells % 0.0 Neutrophils # 10.6 H Lymphocytes # 3.1 H Monocytes # 1.2 H Eosinophils # 0.5 Basophils # 0.1 Nucleated Red Blood Cells # 0.0 Sodium Level 137 Potassium Level 4.6 Chloride Level 98 Carbon Dioxide Level 31 Anion Gap 13 Blood Urea Nitrogen 25 H Creatinine 0.66 Glucose Level 206 Calcium Level 9.3 Test 07/19/16 12:26 07/19/16 17:17 Bedside Glucose 221 H 194 Medications Medications Current Medications Acetaminophen (Tylenol Tab) 650 mg Q6 PRN GTB PAIN Last administered on 04:49; Admin Dose 650 MG; Start 07/07/16 at 12:00 Apixaban (Eliquis) 5 mg BID GTB Last administered on 07/19/16 09:36; Admin Dose 5 MG; Start 07/07/16 at 21:00 Bisacodyl (Dulcolax Supp) 10 mg PRN [place] ; Start 07/07/16 at 12:00 Carvedilol (Coreg) 3.125 mg BID GTB Last administered on 07/19/16 09:35; Admin Dose 3.125 MG; Start 07/07/16 at 21:00 Chlorhexidine Gluconate (Peridex) 15 ml Q12 MM Last administered on 07/19/16 09:34; Admin Dose 15 ML; Start 07/07/16 at 21:00 Clonazepam (Klonopin) 0.5 mg TID GTB Last administered on 07/19/16 12:53; Admin Dose 0.5 MG; Start 07/07/16 at 13:00 Fentanyl (Duragesic 50 Mcg/Hr Patch) 1 patch Q72H TRANSDERM Last administered on 07/17/16 13:17; Admin Dose 1 PATCH; Start 07/08/16 at 12:00 Ferrous Sulfate (Feosol Liquid Cup) 330 mg BID GTB Last administered on 09:35; Admin Dose 330 MG; Start 07/07/16 at 21:00 Lansoprazole (Prevacid) 30 mg DAILY GTB Last administered on 07/19/16 09:35; Admin Dose 30 MG; Start 07/08/16 at 09:00 Levalbuterol (Xopenex Neb) 0.63 mg Q6H PRN NEB WHEEZING AND SOB Last administered on 07/14/16 22:47; Admin Dose 0.63 MG; Start 07/07/16 at 12:00 Magnesium Hydroxide (Milk Of Mag) 30 ml DAILY PRN GTB CONSTIPATION; Start 07/07 at 12:00 Metoclopramide HCl (Reglan) 10 mg Q6 PRN GTB NAUSEA AND/OR VOMITING; Start at 17:00 Sodium Biphosphate/ Sodium Phosphate (Fleet Enema) 135 ml PRN PRN [place] severe constipation; Start 07/07/16 at 17:00 Quetiapine Fumarate (Seroquel) 12.5 mg DAILY GTB Last administered on 09:35; Admin Dose 12.5 MG; Start 07/08/16 at 09:00 Valsartan (Diovan) 80 mg DAILY GTB Last administered on 07/19/16 09:36; Admin Dose 80 MG; Start 07/08/16 at 09:00 Zinc Sulfate (Zinc Sulfate) 220 mg DAILY GTB Last administered on 07/19/16 09: 35; Admin Dose 220 MG; Start 07/08/16 at 09:00 Multivitamins (Thera-Plus) 5 ml DAILY GTB Last administered on 07/19/16 09:34 ; Admin Dose 5 ML; Start 07/08/16 at 09:00 Ascorbic Acid (Vitamin C) 500 mg DAILY GTB Last administered on 07/19/16 09:35 ; Admin Dose 500 MG; Start 07/08/16 at 09:00 Miscellaneous Information 1 ea NOTE XX ; Start 07/07/16 at 17:30 Glucose (Glutose) 15 gm Q15M PRN PO DECREASED GLUCOSE; Start 07/07/16 at 17:30 Glucose (Glutose) 22.5 gm Q15M PRN PO DECREASED GLUCOSE; Start 07/07/16 at 17: 30 Dextrose (D50w Syringe) 25 ml Q15M PRN IV DECREASED GLUCOSE; Start 07/07/16 at 17:30 Dextrose (D50w Syringe) 50 ml Q15M PRN IV DECREASED GLUCOSE; Start 07/07/16 at 17:30 Glucagon (Glucagen) 1 mg Q15M PRN IM DECREASED GLUCOSE; Start 07/07/16 at 17:30 Glucose (Glutose) 15 gm Q15M PRN BUCCAL DECREASED GLUCOSE; Start 07/07/16 at 17 :30 Sodium Hypochlorite (Dakin'S (04/13 Strength)) 1 applic QHS IRR Last administered on 07/18/16 21:12; Admin Dose 1 APPLIC; Start 07/11/16 at 21:00 Docusate Sodium (Colace Liquid Cup) 100 mg DAILY GTB Last administered on 09:34; Admin Dose 100 MG; Start 07/12/16 at 10:00 Linezolid (Zyvox) 600 mg BID PO Last administered on 07/19/16 09:36; Admin Dose 600 MG; Start 07/12/16 at 21:00 Amikacin Sulfate AMIKACIN PER PHARMACY NOTE XX ; Start 07/12/16 at 13:30 Amikacin Sulfate/ Sodium Chloride (Amikacin/NS) 104 ml @ 102 mls/hr Q36H IVPB Last administered on 07/18/16 16:57; Admin Dose 102 MLS/HR; Start 07/12/16 at 16 :00 Silver Sulfadiazine (Thermazene 1% 25 Gm) 1 applic DAILY TOP Last administered on 07/19/16 09:36; Admin Dose 1 APPLIC; Start 07/14/16 at 09:00 Metronidazole (Flagyl) 500 mg Q8 NGT Last administered on 07/19/16 12:53; Admin Dose 500 MG; Start 07/14/16 at 15:30 Diagnostic Test (Pha) (Accu-Chek) 1 ea Q6 XX Last administered on 07/19/16 17: 41; Admin Dose 1 EA; Start 07/19/16 at 18:00 Insulin Human NPH (Humulin N) 15 unit Q6 SC Last administered on 07/19/16t 18: 23; Admin Dose 15 UNIT; Start 07/19/16 at 18:00 JUAN POSADA Jul 19, 2016 19:56
[2016-07-19] MEDS: SODIUM HYPOCHLORITE 0.125% 473 ML BTL IRR SCH (21:49)
[2016-07-20] VITALS (30 sets, daily range): BP systolic 104–154; BP diastolic 53–67; PULSE 93–105; RESP 16–30
[2016-07-20] MEDS: NPH, HUMAN INSULIN ISOPHANE 3ML VIAL SC SCH ×4 (00:48→18:02)
[2016-07-20] MEDS: ACCU-CHEK XX SCH ×4 (00:49→18:02)
[2016-07-20] MEDS: AMIKACIN 1,000 MG in SOD CHLORIDE 0.9% 100 ML IVPB SCH (04:34)
[2016-07-20] MEDS: metroNIDAZOLE 500 MG TAB NGT SCH ×3 (05:53→21:40)
[2016-07-20 06:17] LABS: ADD SCAN DIFF NO
[2016-07-20 06:18] LABS: BASOPHIL # 0.1 10^3/ul (0.0-0.1); BASOPHILS % 0.5 % (0.0-2.0); EOSINOPHILS # 0.5 10^3/ul (0.0-0.5); EOSINOPHILS % 3.3 % (0.0-7.0); HEMATOCRIT 32.4 % (37.0-47.0); HEMOGLOBIN 9.5 g/dl (12.0-16.0); LYMPHOCYTES # 3.6 10^3/ul (0.8-2.9); MEAN CORPUSCULAR HEMOGLOBIN 26.8 pg (29.0-33.0); MEAN CORPUSCULAR HGB CONC 29.3 g/dl (32.0-37.0); MEAN CORPUSCULAR VOLUME 91.3 fl (82.0-101.0); MEAN PLATELET VOLUME 10.7 fl (7.4-10.4); MONOCYTE # 1.4 10^3/ul (0.3-0.9); MONOCYTES % 8.9 % (0.0-11.0); NEUTROPHIL # 10.4 10^3/ul (1.6-7.5); NEUTROPHILS % 64.7 % (39.0-77.0); PLATELET COUNT 587 10^3/UL (140-415); RED BLOOD COUNT 3.55 10^6/ul (4.20-5.40); RED CELL DISTRIBUTION WIDTH 21.2 % (11.5-14.5); WHITE BLOOD COUNT 16.1 10^3/ul (4.8-10.8)
[2016-07-20 06:42] LABS: CALCIUM 9.5 mg/dl (8.4-10.2); CREATININE 0.61 mg/dl (0.44-1.00); POTASSIUM 4.5 mmol/L (3.5-5.1)
[2016-07-20] MEDS: COLISTIMETHATE (25 MG/ML INHAL SYG) NEB SCH (08:02)
[2016-07-20] MEDS: ASCORBIC ACID 500 MG TAB GTB SCH (08:53)
[2016-07-20] MEDS: MULTIVITAMINS 5 ML CUP GTB SCH (08:53)
[2016-07-20] MEDS: DOCUSATE SODIUM 10 MG/ML (10ML CUP) GTB SCH (08:53)
[2016-07-20] MEDS: CHLORHEXIDINE GLUCONATE 15 ML UD CUP MM SCH ×2 (08:53→21:11)
[2016-07-20] MEDS: FERROUS SULFATE 60 MG/ML 5ML CUP GTB SCH ×2 (08:53→21:11)
[2016-07-20] MEDS: SILVER SULFADIAZINE 1% 25 GM CR TOP SCH (08:53)
[2016-07-20] MEDS: ZINC SULFATE 220 MG CAP GTB SCH (08:53)
[2016-07-20] MEDS: QUETIAPINE 25 MG TAB GTB SCH (08:54)
[2016-07-20] MEDS: LANSOPRAZOLE 30 MG CAP GTB SCH (08:54)
[2016-07-20] MEDS: APIXABAN 5 MG TABLET GTB SCH ×2 (08:55→21:12)
[2016-07-20] MEDS: ZYVOX 600 MG TAB PO SCH ×2 (08:55→21:13)
[2016-07-20] MEDS: clonAZEPAM 0.5 MG TAB GTB SCH ×3 (08:55→21:12)
[2016-07-20] MEDS: VALSARTAN 80 MG TAB GTB SCH (08:55)
--- NOTE | 2016-07-20 13:20 | CONS ---
Date/Time of Note Date/Time of Note DATE: 07/20/16 TIME: 13:18 Assessment/Plan Assessment/Plan Additional Assessment/Plan Ventilator settings; AC of 14, tidal volume 500, PEEP of 5, 30% FiO2. Next Assessment recommendations; 1. Patient admitted for sepsis due to severe gangrene involving the left foot. Currently on broad-spectrum antibiotic coverage. 2. Multi-infarct dementia. 3. Chronic respiratory failure, ventilator dependent. 4. Underlying morbid obesity. 5. Severe peripheral vascular disease. Continue current supportive care. Prognosis is poor. Consultation Date/Type/Reason Admit Date/Time Jul 06, 2016 at 22:42 Initial Consult Date 07/12/16 Type of Consultation: Pulmonary Referring Provider: JOSR LORENZO MD 24 HR Interval Summary Free Text/Dictation Patient condition remains stable. Remains essentially unresponsive to any commands owing to underlying CVA. Remains ventilator dependent. Has remained hemodynamically stable. Exam; elderly woman, on ventilator via tracheostomy currently in no distress. Exam/Review of Systems Vital Signs Vitals Vital Signs Date Time Temp Pulse Resp B/P Pulse Ox O2 Delivery O2 Flow Rate FiO2 07/20/16 12:33 98.6 99 16 118/59 97 07/20/16 07:30 30 07/20/16 06:00 Mechanical Ventilator Intake and Output 07/19/16 07/19/16 07/20/16 15:00 23:00 07:00 Intake Total 960 ml 1009 ml Output Total 500 ml 400 ml Balance 460 ml 609 ml Exam HEENT exam; supple neck, no JVD. No lymphadenopathy. Midline trachea. No thyromegaly. Tracheostomy in place with clean insertion site. No neck masses. Chest examination; clear to auscultation. S1-S2 audible, no murmurs. Abdomen examination; soft, G-tube in place. Bowel sounds audible. No organomegaly. Extremity exam is; there is gangrene involving the left foot. Also not palpable. Trace edema in right lower extremity. DIRECTOR OF MARKET ANALYSIS examination; patient remains unresponsive. Results Result Diagram: 07/20/16 0553 07/20/16 0553 Results 24 hrs Laboratory Tests Test 07/19/16 17:17 07/20/16 00:42 07/20/16 04:35 07/20/16 05:52 Bedside Glucose 194 226 H 203 Stool Occult Blood NEGATIVE Test 07/20/16 05:53 07/20/16 07:58 07/20/16 12:35 White Blood Count 16.1 H Red Blood Count 3.55 L Hemoglobin 9.5 L Hematocrit 32.4 L Mean Corpuscular Volume 91.3 Mean Corpuscular Hemoglobin 26.8 L Mean Corpuscular Hemoglobin Concent 29.3 L Red Cell Distribution Width 21.2 H Platelet Count 587 H Mean Platelet Volume 10.7 H Neutrophils % 64.7 Lymphocytes % 22.0 Monocytes % 8.9 Eosinophils % 3.3 Basophils % 0.5 Nucleated Red Blood Cells % 0.0 Neutrophils # 10.4 H Lymphocytes # 3.6 H Monocytes # 1.4 H Eosinophils # 0.5 Basophils # 0.1 Nucleated Red Blood Cells # 0.0 Sodium Level 135 Potassium Level 4.5 Chloride Level 98 Carbon Dioxide Level 30 Anion Gap 12 Blood Urea Nitrogen 27 H Creatinine 0.61 Glucose Level 200 Calcium Level 9.5 Lab Scanned Report REFERENCE LAB Bedside Glucose 186 Medications Medications Current Medications Acetaminophen (Tylenol Tab) 650 mg Q6 PRN GTB PAIN Last administered on 04:49; Admin Dose 650 MG; Start 07/07/16 at 12:00 Apixaban (Eliquis) 5 mg BID GTB Last administered on 07/20/16 08:55; Admin Dose 5 MG; Start 07/07/16 at 21:00 Bisacodyl (Dulcolax Supp) 10 mg PRN [place] ; Start 07/07/16 at 12:00 Carvedilol (Coreg) 3.125 mg BID GTB Last administered on 07/20/16 08:54; Admin Dose 3.125 MG; Start 07/07/16 at 21:00 Chlorhexidine Gluconate (Peridex) 15 ml Q12 MM Last administered on 07/20/16 08:53; Admin Dose 15 ML; Start 07/07/16 at 21:00 Clonazepam (Klonopin) 0.5 mg TID GTB Last administered on 07/20/16 12:39; Admin Dose 0.5 MG; Start 07/07/16 at 13:00 Fentanyl (Duragesic 50 Mcg/Hr Patch) 1 patch Q72H TRANSDERM Last administered on 07/17/16 13:17; Admin Dose 1 PATCH; Start 07/08/16 at 12:00 Ferrous Sulfate (Feosol Liquid Cup) 330 mg BID GTB Last administered on 08:53; Admin Dose 330 MG; Start 07/07/16 at 21:00 Lansoprazole (Prevacid) 30 mg DAILY GTB Last administered on 07/20/16 08:54; Admin Dose 30 MG; Start 07/08/16 at 09:00 Levalbuterol (Xopenex Neb) 0.63 mg Q6H PRN NEB WHEEZING AND SOB Last administered on 07/14/16 22:47; Admin Dose 0.63 MG; Start 07/07/16 at 12:00 Magnesium Hydroxide (Milk Of Mag) 30 ml DAILY PRN GTB CONSTIPATION; Start 07/07 at 12:00 Metoclopramide HCl (Reglan) 10 mg Q6 PRN GTB NAUSEA AND/OR VOMITING; Start at 17:00 Sodium Biphosphate/ Sodium Phosphate (Fleet Enema) 135 ml PRN PRN [place] severe constipation; Start 07/07/16 at 17:00 Quetiapine Fumarate (Seroquel) 12.5 mg DAILY GTB Last administered on 08:54; Admin Dose 12.5 MG; Start 07/08/16 at 09:00 Valsartan (Diovan) 80 mg DAILY GTB Last administered on 07/20/16 08:55; Admin Dose 80 MG; Start 07/08/16 at 09:00 Zinc Sulfate (Zinc Sulfate) 220 mg DAILY GTB Last administered on 07/20/16 08: 53; Admin Dose 220 MG; Start 07/08/16 at 09:00 Multivitamins (Thera-Plus) 5 ml DAILY GTB Last administered on 07/20/16 08:53 ; Admin Dose 5 ML; Start 07/08/16 at 09:00 Ascorbic Acid (Vitamin C) 500 mg DAILY GTB Last administered on 07/20/16 08:53 ; Admin Dose 500 MG; Start 07/08/16 at 09:00 Miscellaneous Information 1 ea NOTE XX ; Start 07/07/16 at 17:30 Glucose (Glutose) 15 gm Q15M PRN PO DECREASED GLUCOSE; Start 07/07/16 at 17:30 Glucose (Glutose) 22.5 gm Q15M PRN PO DECREASED GLUCOSE; Start 07/07/16 at 17: 30 Dextrose (D50w Syringe) 25 ml Q15M PRN IV DECREASED GLUCOSE; Start 07/07/16 at 17:30 Dextrose (D50w Syringe) 50 ml Q15M PRN IV DECREASED GLUCOSE; Start 07/07/16 at 17:30 Glucagon (Glucagen) 1 mg Q15M PRN IM DECREASED GLUCOSE; Start 07/07/16 at 17:30 Glucose (Glutose) 15 gm Q15M PRN BUCCAL DECREASED GLUCOSE; Start 07/07/16 at 17 :30 Sodium Hypochlorite (Dakin'S (1/4 Strength)) 1 applic QHS IRR Last administered on 07/19/16 21:49; Admin Dose 1 APPLIC; Start 07/11/16 at 21:00 Docusate Sodium (Colace Liquid Cup) 100 mg DAILY GTB Last administered on 08:53; Admin Dose 100 MG; Start 07/12/16 at 10:00 Linezolid (Zyvox) 600 mg BID PO Last administered on 07/20/16 08:55; Admin Dose 600 MG; Start 07/12/16 at 21:00 Amikacin Sulfate AMIKACIN PER PHARMACY NOTE XX ; Start 07/12/16 at 13:30 Amikacin Sulfate/ Sodium Chloride (Amikacin/NS) 104 ml @ 102 mls/hr Q36H IVPB Last administered on 07/20/16 04:34; Admin Dose 102 MLS/HR; Start 07/12/16 at 16 :00 Silver Sulfadiazine (Thermazene 1% 25 Gm) 1 applic DAILY TOP Last administered on 07/20/16 08:53; Admin Dose 1 APPLIC; Start 07/14/16 at 09:00 Metronidazole (Flagyl) 500 mg Q8 NGT Last administered on 07/20/16 12:39; Admin Dose 500 MG; Start 07/14/16 at 15:30 Diagnostic Test (Pha) (Accu-Chek) 1 ea Q6 XX Last administered on 07/20/16 12: 37; Admin Dose 1 EA; Start 07/19/16 at 18:00 Insulin Human NPH (Humulin N) 15 unit Q6 SC Last administered on 07/20/16 12: 40; Admin Dose 15 UNIT; Start 07/19/16 at 18:00 STEVE JONES Jul 20, 2016 13:20
--- NOTE | 2016-07-20 15:45 | CONS ---
Date/Time of Note Date/Time of Note DATE: 07/20/16 TIME: 15:43 Assessment/Plan Assessment/Plan Chief Complaint/Hosp Course SUBJECTIVE: No events overnight, no fevers MICROBIOLOGY: Wound culture grew Pseudomonas aeruginosa, Providencia stuartii, VRE INDWELLINGS: Trach, PEG, Rivera. ANTIMICROBIALS: The patient is on: 1. Zyvox 2. Colistin inhalation. 3. Amikacin. 4. Flagyl PHYSICAL EXAMINATION: GENERAL: This is a chronically ill-appearing, elderly woman who is in no distress. HEENT: Head atraumatic, normocephalic. Sclerae anicteric. Buccal mucosa dry. NECK: Supple. Tracheostomy present. CHEST: Rise symmetrical. Breath sounds diminished to bases. HEART: S1, S2. ABDOMEN: Soft. Bowel tones present. EXTREMITIES: Left foot gangrene ASSESSMENT: 1. Persistent leukocytosis, likely 2 to #2. 2. Left foot gangrene with open wound culture growing multi-drug resistant organisms. 3. Chronic respiratory failure. 4. Dysphagia. 5. Chronic encephalopathy. 6. Severe peripheral arterial and vascular disease, not a candidate for revascularization procedure per previous admission vascular note. 7. Diabetes. PLAN: Remains unchanged, will dc Colistin, continue abx, Flagyl for anaerobic coverage. Management as per primary team and consultants. The patient is DNR status. staff Problems: Consultation Date/Type/Reason Admit Date/Time Jul 06, 2016 at 22:42 Initial Consult Date 07/12/16 Type of Consultation: id Referring Provider: JOSR LORENZO MD Exam/Review of Systems Vital Signs Vitals Vital Signs Date Time Temp Pulse Resp B/P Pulse Ox O2 Delivery O2 Flow Rate FiO2 07/20/16 15:00 106 18 99 30 07/20/16 14:00 99.2 154/66 07/20/16 06:00 Mechanical Ventilator Intake and Output 07/19/16 07/19/16 07/20/16 15:00 23:00 07:00 Intake Total 960 ml 1009 ml Output Total 500 ml 400 ml Balance 460 ml 609 ml Results Result Diagram: 07/20/16 0553 07/20/16 0553 Results 24 hrs Laboratory Tests Test 07/19/16 17:17 07/20/16 00:42 07/20/16 04:35 07/20/16 05:52 Bedside Glucose 194 226 H 203 Stool Occult Blood NEGATIVE Test 07/20/16 05:53 07/20/16 07:58 07/20/16 12:35 White Blood Count 16.1 H Red Blood Count 3.55 L Hemoglobin 9.5 L Hematocrit 32.4 L Mean Corpuscular Volume 91.3 Mean Corpuscular Hemoglobin 26.8 L Mean Corpuscular Hemoglobin Concent 29.3 L Red Cell Distribution Width 21.2 H Platelet Count 587 H Mean Platelet Volume 10.7 H Neutrophils % 64.7 Lymphocytes % 22.0 Monocytes % 8.9 Eosinophils % 3.3 Basophils % 0.5 Nucleated Red Blood Cells % 0.0 Neutrophils # 10.4 H Lymphocytes # 3.6 H Monocytes # 1.4 H Eosinophils # 0.5 Basophils # 0.1 Nucleated Red Blood Cells # 0.0 Sodium Level 135 Potassium Level 4.5 Chloride Level 98 Carbon Dioxide Level 30 Anion Gap 12 Blood Urea Nitrogen 27 H Creatinine 0.61 Glucose Level 200 Calcium Level 9.5 Lab Scanned Report REFERENCE LAB Bedside Glucose 186 Medications Medications Current Medications Acetaminophen (Tylenol Tab) 650 mg Q6 PRN GTB PAIN Last administered on 04:49; Admin Dose 650 MG; Start 07/07/16 at 12:00 Apixaban (Eliquis) 5 mg BID GTB Last administered on 07/20/16 08:55; Admin Dose 5 MG; Start 07/07/16 at 21:00 Bisacodyl (Dulcolax Supp) 10 mg PRN [place] ; Start 07/07/16 at 12:00 Carvedilol (Coreg) 3.125 mg BID GTB Last administered on 07/20/16 08:54; Admin Dose 3.125 MG; Start 07/07/16 at 21:00 Chlorhexidine Gluconate (Peridex) 15 ml Q12 MM Last administered on 07/20/16 08:53; Admin Dose 15 ML; Start 07/07/16 at 21:00 Clonazepam (Klonopin) 0.5 mg TID GTB Last administered on 07/20/16 12:39; Admin Dose 0.5 MG; Start 07/07/16 at 13:00 Fentanyl (Duragesic 50 Mcg/Hr Patch) 1 patch Q72H TRANSDERM Last administered on 07/17/16 13:17; Admin Dose 1 PATCH; Start 07/08/16 at 12:00 Ferrous Sulfate (Feosol Liquid Cup) 330 mg BID GTB Last administered on 08:53; Admin Dose 330 MG; Start 07/07/16 at 21:00 Lansoprazole (Prevacid) 30 mg DAILY GTB Last administered on 07/20/16 08:54; Admin Dose 30 MG; Start 07/08/16 at 09:00 Levalbuterol (Xopenex Neb) 0.63 mg Q6H PRN NEB WHEEZING AND SOB Last administered on 07/14/16 22:47; Admin Dose 0.63 MG; Start 07/07/16 at 12:00 Magnesium Hydroxide (Milk Of Mag) 30 ml DAILY PRN GTB CONSTIPATION; Start 07/07 at 12:00 Metoclopramide HCl (Reglan) 10 mg Q6 PRN GTB NAUSEA AND/OR VOMITING; Start at 17:00 Sodium Biphosphate/ Sodium Phosphate (Fleet Enema) 135 ml PRN PRN [place] severe constipation; Start 07/07/16 at 17:00 Quetiapine Fumarate (Seroquel) 12.5 mg DAILY GTB Last administered on 08:54; Admin Dose 12.5 MG; Start 07/08/16 at 09:00 Valsartan (Diovan) 80 mg DAILY GTB Last administered on 07/20/16 08:55; Admin Dose 80 MG; Start 07/08/16 at 09:00 Zinc Sulfate (Zinc Sulfate) 220 mg DAILY GTB Last administered on 07/20/16 08: 53; Admin Dose 220 MG; Start 07/08/16 at 09:00 Multivitamins (Thera-Plus) 5 ml DAILY GTB Last administered on 07/20/16 08:53 ; Admin Dose 5 ML; Start 07/08/16 at 09:00 Ascorbic Acid (Vitamin C) 500 mg DAILY GTB Last administered on 07/20/16 08:53 ; Admin Dose 500 MG; Start 07/08/16 at 09:00 Miscellaneous Information 1 ea NOTE XX ; Start 07/07/16 at 17:30 Glucose (Glutose) 15 gm Q15M PRN PO DECREASED GLUCOSE; Start 07/07/16 at 17:30 Glucose (Glutose) 22.5 gm Q15M PRN PO DECREASED GLUCOSE; Start 07/07/16 at 17: 30 Dextrose (D50w Syringe) 25 ml Q15M PRN IV DECREASED GLUCOSE; Start 07/07/16 at 17:30 Dextrose (D50w Syringe) 50 ml Q15M PRN IV DECREASED GLUCOSE; Start 07/07/16 at 17:30 Glucagon (Glucagen) 1 mg Q15M PRN IM DECREASED GLUCOSE; Start 07/07/16 at 17:30 Glucose (Glutose) 15 gm Q15M PRN BUCCAL DECREASED GLUCOSE; Start 07/07/16 at 17 :30 Sodium Hypochlorite (Dakin'S (04/13 Strength)) 1 applic QHS IRR Last administered on 07/19/16 21:49; Admin Dose 1 APPLIC; Start 07/11/16 at 21:00 Docusate Sodium (Colace Liquid Cup) 100 mg DAILY GTB Last administered on 08:53; Admin Dose 100 MG; Start 07/12/16 at 10:00 Linezolid (Zyvox) 600 mg BID PO Last administered on 07/20/16 08:55; Admin Dose 600 MG; Start 07/12/16 at 21:00 Amikacin Sulfate AMIKACIN PER PHARMACY NOTE XX ; Start 07/12/16 at 13:30 Amikacin Sulfate/ Sodium Chloride (Amikacin/NS) 104 ml @ 102 mls/hr Q36H IVPB Last administered on 07/20/16 04:34; Admin Dose 102 MLS/HR; Start 07/12/16 at 16 :00 Silver Sulfadiazine (Thermazene 1% 25 Gm) 1 applic DAILY TOP Last administered on 07/20/16 08:53; Admin Dose 1 APPLIC; Start 07/14/16 at 09:00 Metronidazole (Flagyl) 500 mg Q8 NGT Last administered on 07/20/16 12:39; Admin Dose 500 MG; Start 07/14/16 at 15:30 Diagnostic Test (Pha) (Accu-Chek) 1 ea Q6 XX Last administered on 07/20/16 12: 37; Admin Dose 1 EA; Start 07/19/16 at 18:00 Insulin Human NPH (Humulin N) 15 unit Q6 SC Last administered on 07/20/16 12: 40; Admin Dose 15 UNIT; Start 07/19/16 at 18:00 JEFF SERNA NP Jul 20, 2016 15:45
--- NOTE | 2016-07-20 15:57 | PN ---
Date/Time of Note Date/Time of Note DATE: 07/20/16 TIME: 15:55 Assessment/Plan VTE Prophylaxis VTE Prophylaxis Intervention: other Lines/Catheters IV [facility]ter Type (from [facility]): Saline Lock Urinary Cath still in place: Yes Assessment/Plan Assessment/Plan 1. Acute on chronic respiratory failure secondary to pneumonia. - Dr. Mcbride is following in pulmonology consultation. Continue ventilator support and bronchodilators. 2. Sepsis, resolving. continue broad-spectrum antibiotics. Dr. Hernadez is following in infectious disease consultation. 3. Acute anemia - Status post blood transfusion. - Dr. Dowd is following in gastroenterology consultation, stool for OB is negative. - Dr. Storey is following patient in hematology consultation. 4. 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 Dr. Sanchez is following in podiatry consultation 5. History of CVA with left-sided hemiplegia. 6. Cardiomyopathy, with an ejection fraction of 45%. 7. Diastolic dysfunction congestive heart failure. 8. Chronic pain syndrome. 9. Ventilator-dependent respiratory failure with tracheostomy. 10. Dysphagia with G-tube placement. 11. Multiple wounds present on admission. 12. Prevacid for GI prophylaxis 13. SCD for deep venous thrombosis prophylaxis. Further recommendations based on clinical course. Plan of care discussed with Dr. Suarez. Exam/Review of Systems Vital Signs Vitals Vital Signs Date Time Temp Pulse Resp B/P Pulse Ox O2 Delivery O2 Flow Rate FiO2 07/20/16 15:00 106 18 99 30 07/20/16 14:00 99.2 154/66 07/20/16 06:00 Mechanical Ventilator Intake and Output 07/19/16 07/19/16 07/20/16 15:00 23:00 07:00 Intake Total 960 ml 1009 ml Output Total 500 ml 400 ml Balance 460 ml 609 ml Exam Constitutional: alert Psych: nl mood/affect Head: atraumatic ENMT: nl external ears & nose Neck: non-tender Respiratory: clear to auscultation, other Cardiovascular: nl pulses Gastrointestinal: non-tender, other, soft Musculoskeletal: muscle weakness Extremities: normal pulses Neurological: confused Skin: other Lymph: nontender Results Result Diagram: 07/20/16 0553 07/20/16 0553 Results 24 hrs Laboratory Tests Test 07/19/16 17:17 07/20/16 00:42 07/20/16 04:35 07/20/16 05:52 Bedside Glucose 194 226 H 203 Stool Occult Blood NEGATIVE Test 07/20/16 05:53 07/20/16 07:58 07/20/16 12:35 White Blood Count 16.1 H Red Blood Count 3.55 L Hemoglobin 9.5 L Hematocrit 32.4 L Mean Corpuscular Volume 91.3 Mean Corpuscular Hemoglobin 26.8 L Mean Corpuscular Hemoglobin Concent 29.3 L Red Cell Distribution Width 21.2 H Platelet Count 587 H Mean Platelet Volume 10.7 H Neutrophils % 64.7 Lymphocytes % 22.0 Monocytes % 8.9 Eosinophils % 3.3 Basophils % 0.5 Nucleated Red Blood Cells % 0.0 Neutrophils # 10.4 H Lymphocytes # 3.6 H Monocytes # 1.4 H Eosinophils # 0.5 Basophils # 0.1 Nucleated Red Blood Cells # 0.0 Sodium Level 135 Potassium Level 4.5 Chloride Level 98 Carbon Dioxide Level 30 Anion Gap 12 Blood Urea Nitrogen 27 H Creatinine 0.61 Glucose Level 200 Calcium Level 9.5 Lab Scanned Report REFERENCE LAB Bedside Glucose 186 Medications Medications Current Medications Acetaminophen (Tylenol Tab) 650 mg Q6 PRN GTB PAIN Last administered on 04:49; Admin Dose 650 MG; Start 07/07/16 at 12:00 Apixaban (Eliquis) 5 mg BID GTB Last administered on 07/20/16 08:55; Admin Dose 5 MG; Start 07/07/16 at 21:00 Bisacodyl (Dulcolax Supp) 10 mg PRN [place] ; Start 07/07/16 at 12:00 Carvedilol (Coreg) 3.125 mg BID GTB Last administered on 07/20/16 08:54; Admin Dose 3.125 MG; Start 07/07/16 at 21:00 Chlorhexidine Gluconate (Peridex) 15 ml Q12 MM Last administered on 07/20/16 08:53; Admin Dose 15 ML; Start 07/07/16 at 21:00 Clonazepam (Klonopin) 0.5 mg TID GTB Last administered on 07/20/16 12:39; Admin Dose 0.5 MG; Start 07/07/16 at 13:00 Fentanyl (Duragesic 50 Mcg/Hr Patch) 1 patch Q72H TRANSDERM Last administered on 07/17/16 13:17; Admin Dose 1 PATCH; Start 07/08/16 at 12:00 Ferrous Sulfate (Feosol Liquid Cup) 330 mg BID GTB Last administered on 08:53; Admin Dose 330 MG; Start 07/07/16 at 21:00 Lansoprazole (Prevacid) 30 mg DAILY GTB Last administered on 07/20/16 08:54; Admin Dose 30 MG; Start 07/08/16 at 09:00 Levalbuterol (Xopenex Neb) 0.63 mg Q6H PRN NEB WHEEZING AND SOB Last administered on 07/14/16 22:47; Admin Dose 0.63 MG; Start 07/07/16 at 12:00 Magnesium Hydroxide (Milk Of Mag) 30 ml DAILY PRN GTB CONSTIPATION; Start 07/07 at 12:00 Metoclopramide HCl (Reglan) 10 mg Q6 PRN GTB NAUSEA AND/OR VOMITING; Start at 17:00 Sodium Biphosphate/ Sodium Phosphate (Fleet Enema) 135 ml PRN PRN [place] severe constipation; Start 07/07/16 at 17:00 Quetiapine Fumarate (Seroquel) 12.5 mg DAILY GTB Last administered on 08:54; Admin Dose 12.5 MG; Start 07/08/16 at 09:00 Valsartan (Diovan) 80 mg DAILY GTB Last administered on 07/20/16 08:55; Admin Dose 80 MG; Start 07/08/16 at 09:00 Zinc Sulfate (Zinc Sulfate) 220 mg DAILY GTB Last administered on 07/20/16 08: 53; Admin Dose 220 MG; Start 07/08/16 at 09:00 Multivitamins (Thera-Plus) 5 ml DAILY GTB Last administered on 07/20/16 08:53 ; Admin Dose 5 ML; Start 07/08/16 at 09:00 Ascorbic Acid (Vitamin C) 500 mg DAILY GTB Last administered on 07/20/16 08:53 ; Admin Dose 500 MG; Start 07/08/16 at 09:00 Miscellaneous Information 1 ea NOTE XX ; Start 07/07/16 at 17:30 Glucose (Glutose) 15 gm Q15M PRN PO DECREASED GLUCOSE; Start 07/07/16 at 17:30 Glucose (Glutose) 22.5 gm Q15M PRN PO DECREASED GLUCOSE; Start 07/07/16 at 17: 30 Dextrose (D50w Syringe) 25 ml Q15M PRN IV DECREASED GLUCOSE; Start 07/07/16 at 17:30 Dextrose (D50w Syringe) 50 ml Q15M PRN IV DECREASED GLUCOSE; Start 07/07/16 at 17:30 Glucagon (Glucagen) 1 mg Q15M PRN IM DECREASED GLUCOSE; Start 07/07/16 at 17:30 Glucose (Glutose) 15 gm Q15M PRN BUCCAL DECREASED GLUCOSE; Start 07/07/16 at 17 :30 Sodium Hypochlorite (Dakin'S (04/13 Strength)) 1 applic QHS IRR Last administered on 07/19/16 21:49; Admin Dose 1 APPLIC; Start 07/11/16 at 21:00 Docusate Sodium (Colace Liquid Cup) 100 mg DAILY GTB Last administered on 08:53; Admin Dose 100 MG; Start 07/12/16 at 10:00 Linezolid (Zyvox) 600 mg BID PO Last administered on 07/20/16 08:55; Admin Dose 600 MG; Start 07/12/16 at 21:00 Amikacin Sulfate AMIKACIN PER PHARMACY NOTE XX ; Start 07/12/16 at 13:30 Amikacin Sulfate/ Sodium Chloride (Amikacin/NS) 104 ml @ 102 mls/hr Q36H IVPB Last administered on 07/20/16 04:34; Admin Dose 102 MLS/HR; Start 07/12/16 at 16 :00 Silver Sulfadiazine (Thermazene 1% 25 Gm) 1 applic DAILY TOP Last administered on 07/20/16 08:53; Admin Dose 1 APPLIC; Start 07/14/16 at 09:00 Metronidazole (Flagyl) 500 mg Q8 NGT Last administered on 07/20/16 12:39; Admin Dose 500 MG; Start 07/14/16 at 15:30 Diagnostic Test (Pha) (Accu-Chek) 1 ea Q6 XX Last administered on 07/20/16 12: 37; Admin Dose 1 EA; Start 07/19/16 at 18:00 Insulin Human NPH (Humulin N) 15 unit Q6 SC Last administered on 07/20/16t 12: 40; Admin Dose 15 UNIT; Start 07/19/16 at 18:00 JUAN POSADA Jul 20, 2016 15:57
[2016-07-20] MEDS: FENTAnyl PATCH 50 MCG/HR TRANSDERM SCH (17:04)
[2016-07-20] MEDS ORDERED: DIPHENHYDRAMINE 50 MG INJ IV PRN (19:30)
[2016-07-20] MEDS: HYDROCODONE/APAP (5/325) TAB GTB PRN (20:10)
[2016-07-20] MEDS: SODIUM HYPOCHLORITE 0.125% 473 ML BTL IRR SCH (21:13)
[2016-07-21] VITALS (23 sets, daily range): BP systolic 93–148; BP diastolic 53–93; PULSE 88–110; RESP 16–31
[2016-07-21] MEDS: ACCU-CHEK XX SCH ×4 (00:45→18:00)
[2016-07-21] MEDS: NPH, HUMAN INSULIN ISOPHANE 3ML VIAL SC SCH ×3 (00:49→11:38)
[2016-07-21] MEDS: metroNIDAZOLE 500 MG TAB NGT SCH ×2 (05:28→13:32)
[2016-07-21 06:45] LABS: ADD SCAN DIFF NO
[2016-07-21 06:48] LABS: BASOPHIL # 0.1 10^3/ul (0.0-0.1); BASOPHILS % 0.5 % (0.0-2.0); EOSINOPHILS # 0.5 10^3/ul (0.0-0.5); EOSINOPHILS % 3.1 % (0.0-7.0); HEMATOCRIT 32.4 % (37.0-47.0); HEMOGLOBIN 9.6 g/dl (12.0-16.0); LYMPHOCYTES # 3.3 10^3/ul (0.8-2.9); MEAN CORPUSCULAR HGB CONC 29.6 g/dl (32.0-37.0); MEAN PLATELET VOLUME 10.8 fl (7.4-10.4); MONOCYTE # 1.3 10^3/ul (0.3-0.9); MONOCYTES % 7.9 % (0.0-11.0); NEUTROPHIL # 11.1 10^3/ul (1.6-7.5); NEUTROPHILS % 67.9 % (39.0-77.0); PLATELET COUNT 582 10^3/UL (140-415); RED BLOOD COUNT 3.56 10^6/ul (4.20-5.40); RED CELL DISTRIBUTION WIDTH 21.1 % (11.5-14.5); WHITE BLOOD COUNT 16.3 10^3/ul (4.8-10.8)
[2016-07-21 07:02] LABS: POTASSIUM 4.3 mmol/L (3.5-5.1)
[2016-07-21 07:04] LABS: CREATININE 0.63 mg/dl (0.44-1.00)
[2016-07-21 07:05] LABS: CALCIUM 9.5 mg/dl (8.4-10.2)
[2016-07-21] MEDS: DOCUSATE SODIUM 10 MG/ML (10ML CUP) GTB SCH (09:09)
[2016-07-21] MEDS: FERROUS SULFATE 60 MG/ML 5ML CUP GTB SCH (09:09)
[2016-07-21] MEDS: APIXABAN 5 MG TABLET GTB SCH (09:09)
[2016-07-21] MEDS: ZINC SULFATE 220 MG CAP GTB SCH (09:09)
[2016-07-21] MEDS: CHLORHEXIDINE GLUCONATE 15 ML UD CUP MM SCH (09:09)
[2016-07-21] MEDS: VALSARTAN 80 MG TAB GTB SCH (09:10)
[2016-07-21] MEDS: QUETIAPINE 25 MG TAB GTB SCH (09:10)
[2016-07-21] MEDS: LANSOPRAZOLE 30 MG CAP GTB SCH (09:10)
[2016-07-21] MEDS: ASCORBIC ACID 500 MG TAB GTB SCH (09:10)
[2016-07-21] MEDS: ZYVOX 600 MG TAB PO SCH (09:10)
[2016-07-21] MEDS: SILVER SULFADIAZINE 1% 25 GM CR TOP SCH (09:11)
[2016-07-21] MEDS: MULTIVITAMINS 5 ML CUP GTB SCH (09:11)
[2016-07-21] MEDS: clonAZEPAM 0.5 MG TAB GTB SCH ×2 (09:15→13:32)
--- NOTE | 2016-07-21 10:41 | CONS ---
Date/Time of Note Date/Time of Note DATE: 07/21/16 TIME: 10:39 Assessment/Plan Assessment/Plan Additional Assessment/Plan Ventilator settings; AC of 14, tidal volume 500, PEEP of 5, 30% FiO2. Assessment recommendations; 1. Patient admitted for sepsis due to gangrene of the left foot. 2. Severe peripheral vascular disease. 3. Chronic respiratory failure. 4. History of CVA. 5. Underlying obesity. Continue current treatment. Prognosis is poor. Consultation Date/Type/Reason Admit Date/Time Jul 06, 2016 at 22:42 Initial Consult Date 07/12/16 Type of Consultation: Pulmonary Referring Provider: JOSR LORENZO MD 24 HR Interval Summary Free Text/Dictation Patient condition stable. Remains awake and alert and follows simple commands. Denies any shortness of breath or chest pain. General exam; elderly lady, on ventilator via tracheostomy currently in no distress, awake and alert. Exam/Review of Systems Vital Signs Vitals Vital Signs Date Time Temp Pulse Resp B/P Pulse Ox O2 Delivery O2 Flow Rate FiO2 07/21/16 09:20 112 31 100 30 07/21/16 08:02 97.8 143/65 07/21/16 06:00 Mechanical Ventilator Intake and Output 07/20/16 07/20/16 07/21/16 15:00 23:00 07:00 Intake Total 960 ml 965 ml Output Total 500 ml 450 ml Balance 460 ml 515 ml Exam HEENT examination; supple neck, no JVD. No lymphadenopathy. Midline trachea. Tracheostomy in place with clean insertion site. Patient has fair dentition. Pupils are midsize and reactive to light bilaterally. No thyromegaly, no neck masses. Chest examination; clear to auscultation. S1-S2 audible, no murmurs. Regular rhythm. Abdomen examination; soft, no organomegaly. Nontender. G-tube in place. Bowel sounds audible. Extremity exam is; no peripheral edema. There is severe gangrene involving the left foot. [employer] exam; patient is awake alert and follows simple commands Results Result Diagram: 07/21/16 0552 07/21/16 0552 Results 24 hrs Laboratory Tests Test 07/20/16 12:35 07/20/16 17:58 07/21/16 00:44 07/21/16 05:27 Bedside Glucose 186 160 203 230 H Test 07/21/16 05:52 White Blood Count 16.3 H Red Blood Count 3.56 L Hemoglobin 9.6 L Hematocrit 32.4 L Mean Corpuscular Volume 91.0 Mean Corpuscular Hemoglobin 27.0 L Mean Corpuscular Hemoglobin Concent 29.6 L Red Cell Distribution Width 21.1 H Platelet Count 582 H Mean Platelet Volume 10.8 H Neutrophils % 67.9 Lymphocytes % 20.0 Monocytes % 7.9 Eosinophils % 3.1 Basophils % 0.5 Nucleated Red Blood Cells % 0.0 Neutrophils # 11.1 H Lymphocytes # 3.3 H Monocytes # 1.3 H Eosinophils # 0.5 Basophils # 0.1 Nucleated Red Blood Cells # 0.0 Sodium Level 137 Potassium Level 4.3 Chloride Level 94 L Carbon Dioxide Level 30 Anion Gap 17 H Blood Urea Nitrogen 27 H Creatinine 0.63 Glucose Level 217 Calcium Level 9.5 Medications Medications Current Medications Acetaminophen (Tylenol Tab) 650 mg Q6 PRN GTB PAIN Last administered on 04:49; Admin Dose 650 MG; Start 07/07/16 at 12:00 Apixaban (Eliquis) 5 mg BID GTB Last administered on 07/21/16 09:09; Admin Dose 5 MG; Start 07/07/16 at 21:00 Bisacodyl (Dulcolax Supp) 10 mg PRN [place] ; Start 07/07/16 at 12:00 Carvedilol (Coreg) 3.125 mg BID GTB Last administered on 07/21/16 09:10; Admin Dose 3.125 MG; Start 07/07/16 at 21:00 Chlorhexidine Gluconate (Peridex) 15 ml Q12 MM Last administered on 07/21/16 09:09; Admin Dose 15 ML; Start 07/07/16 at 21:00 Clonazepam (Klonopin) 0.5 mg TID GTB Last administered on 07/21/16 09:15; Admin Dose 0.5 MG; Start 07/07/16 at 13:00 Fentanyl (Duragesic 50 Mcg/Hr Patch) 1 patch Q72H TRANSDERM Last administered on 07/20/16 17:04; Admin Dose 1 PATCH; Start 07/08/16 at 12:00 Ferrous Sulfate (Feosol Liquid Cup) 330 mg BID GTB Last administered on 09:09; Admin Dose 330 MG; Start 07/07/16 at 21:00 Lansoprazole (Prevacid) 30 mg DAILY GTB Last administered on 07/21/16 09:10; Admin Dose 30 MG; Start 07/08/16 at 09:00 Levalbuterol (Xopenex Neb) 0.63 mg Q6H PRN NEB WHEEZING AND SOB Last administered on 07/14/16 22:47; Admin Dose 0.63 MG; Start 07/07/16 at 12:00 Magnesium Hydroxide (Milk Of Mag) 30 ml DAILY PRN GTB CONSTIPATION; Start 07/07 at 12:00 Metoclopramide HCl (Reglan) 10 mg Q6 PRN GTB NAUSEA AND/OR VOMITING; Start at 17:00 Sodium Biphosphate/ Sodium Phosphate (Fleet Enema) 135 ml PRN PRN [place] severe constipation; Start 07/07/16 at 17:00 Quetiapine Fumarate (Seroquel) 12.5 mg DAILY GTB Last administered on 09:10; Admin Dose 12.5 MG; Start 07/08/16 at 09:00 Valsartan (Diovan) 80 mg DAILY GTB Last administered on 07/21/16 09:10; Admin Dose 80 MG; Start 07/08/16 at 09:00 Zinc Sulfate (Zinc Sulfate) 220 mg DAILY GTB Last administered on 07/21/16 09: 09; Admin Dose 220 MG; Start 07/08/16 at 09:00 Multivitamins (Thera-Plus) 5 ml DAILY GTB Last administered on 07/21/16 09:11 ; Admin Dose 5 ML; Start 07/08/16 at 09:00 Ascorbic Acid (Vitamin C) 500 mg DAILY GTB Last administered on 07/21/16 09:10 ; Admin Dose 500 MG; Start 07/08/16 at 09:00 Miscellaneous Information 1 ea NOTE XX ; Start 07/07/16 at 17:30 Glucose (Glutose) 15 gm Q15M PRN PO DECREASED GLUCOSE; Start 07/07/16 at 17:30 Glucose (Glutose) 22.5 gm Q15M PRN PO DECREASED GLUCOSE; Start 07/07/16 at 17: 30 Dextrose (D50w Syringe) 25 ml Q15M PRN IV DECREASED GLUCOSE; Start 07/07/16 at 17:30 Dextrose (D50w Syringe) 50 ml Q15M PRN IV DECREASED GLUCOSE; Start 07/07/16 at 17:30 Glucagon (Glucagen) 1 mg Q15M PRN IM DECREASED GLUCOSE; Start 07/07/16 at 17:30 Glucose (Glutose) 15 gm Q15M PRN BUCCAL DECREASED GLUCOSE; Start 07/07/16 at 17 :30 Sodium Hypochlorite (Dakin'S (1/4 Strength)) 1 applic QHS IRR Last administered on 07/20/16 21:13; Admin Dose 1 APPLIC; Start 07/11/16 at 21:00 Docusate Sodium (Colace Liquid Cup) 100 mg DAILY GTB Last administered on 09:09; Admin Dose 100 MG; Start 07/12/16 at 10:00 Linezolid (Zyvox) 600 mg BID PO Last administered on 07/21/16 09:10; Admin Dose 600 MG; Start 07/12/16 at 21:00 Amikacin Sulfate AMIKACIN PER PHARMACY NOTE XX ; Start 07/12/16 at 13:30 Amikacin Sulfate/ Sodium Chloride (Amikacin/NS) 104 ml @ 102 mls/hr Q36H IVPB Last administered on 07/20/16 04:34; Admin Dose 102 MLS/HR; Start 07/12/16 at 16 :00 Silver Sulfadiazine (Thermazene 1% 25 Gm) 1 applic DAILY TOP Last administered on 07/21/16 09:11; Admin Dose 1 APPLIC; Start 07/14/16 at 09:00 Metronidazole (Flagyl) 500 mg Q8 NGT Last administered on 07/21/16 05:28; Admin Dose 500 MG; Start 07/14/16 at 15:30 Diagnostic Test (Pha) (Accu-Chek) 1 ea Q6 XX Last administered on 07/21/16 06: 03; Admin Dose 1 EA; Start 07/19/16 at 18:00 Insulin Human NPH (Humulin N) 18 unit Q6 SC Last administered on 07/21/16 05: 40; Admin Dose 18 UNIT; Start 07/20/16 at 18:00 Diphenhydramine HCl (Benadryl) 25 mg Q6H PRN IV ITCHING Last administered on t 20:10; Admin Dose 25 MG; Start 07/20/16 at 19:30 STEVE JONES Jul 21, 2016 10:41
--- NOTE | 2016-07-21 12:12 | PN ---
Date/Time of Note Date/Time of Note DATE: 07/21/16 TIME: 12:10 Assessment/Plan VTE Prophylaxis VTE Prophylaxis Intervention: SCD's Lines/Catheters IV C[facility]ter Type (from [facility]): Saline Lock Urinary Cath still in place: Yes Assessment/Plan Assessment/Plan 1. Acute on chronic respiratory failure secondary to pneumonia. - Dr. Mcbride is following in pulmonology consultation. Continue ventilator support and bronchodilators. 2. Sepsis, resolving. continue broad-spectrum antibiotics. Dr. Hernadez is following in infectious disease consultation. 3. Acute anemia - Status post blood transfusion. - Dr. Dowd is following in gastroenterology consultation, stool for OB is negative. - Dr. Storey is following patient in hematology consultation. 4. 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 Dr. Sanchez is following in podiatry consultation 5. History of CVA with left-sided hemiplegia. 6. Cardiomyopathy, with an ejection fraction of 45%. 7. Diastolic dysfunction congestive heart failure. 8. Chronic pain syndrome. 9. Ventilator-dependent respiratory failure with tracheostomy. 10. Dysphagia with G-tube placement. 11. Multiple wounds present on admission. 12. Prevacid for GI prophylaxis 13. SCD for deep venous thrombosis prophylaxis. Further recommendations based on clinical course. Plan of care discussed with Dr. Suarez. Subjective 24 Hr Interval Summary Free Text/Dictation nad, confused, afebrile, dw staff. Exam/Review of Systems Vital Signs Vitals Vital Signs Date Time Temp Pulse Resp B/P Pulse Ox O2 Delivery O2 Flow Rate FiO2 07/21/16 11:00 112 19 97 30 07/21/16 08:02 97.8 143/65 07/21/16 06:00 Mechanical Ventilator Intake and Output 07/20/16 07/20/16 07/21/16 15:00 23:00 07:00 Intake Total 960 ml 965 ml Output Total 500 ml 450 ml Balance 460 ml 515 ml Exam Constitutional: alert, well developed Psych: confusion Eyes: nl sclera ENMT: nl external ears & nose Neck: non-tender Respiratory: diminished breath sounds Cardiovascular: nl pulses Gastrointestinal: non-tender, soft Musculoskeletal: muscle weakness Skin: other Lymph: nontender Results Result Diagram: 07/21/16 0552 07/21/16 0552 Results 24 hrs Laboratory Tests Test 07/20/16 12:35 07/20/16 17:58 07/21/16 00:44 07/21/16 05:27 Bedside Glucose 186 160 203 230 H Test 07/21/16 05:52 07/21/16 11:35 White Blood Count 16.3 H Red Blood Count 3.56 L Hemoglobin 9.6 L Hematocrit 32.4 L Mean Corpuscular Volume 91.0 Mean Corpuscular Hemoglobin 27.0 L Mean Corpuscular Hemoglobin Concent 29.6 L Red Cell Distribution Width 21.1 H Platelet Count 582 H Mean Platelet Volume 10.8 H Neutrophils % 67.9 Lymphocytes % 20.0 Monocytes % 7.9 Eosinophils % 3.1 Basophils % 0.5 Nucleated Red Blood Cells % 0.0 Neutrophils # 11.1 H Lymphocytes # 3.3 H Monocytes # 1.3 H Eosinophils # 0.5 Basophils # 0.1 Nucleated Red Blood Cells # 0.0 Sodium Level 137 Potassium Level 4.3 Chloride Level 94 L Carbon Dioxide Level 30 Anion Gap 17 H Blood Urea Nitrogen 27 H Creatinine 0.63 Glucose Level 217 Calcium Level 9.5 Bedside Glucose 207 Medications Medications Current Medications Acetaminophen (Tylenol Tab) 650 mg Q6 PRN GTB PAIN Last administered on 04:49; Admin Dose 650 MG; Start 07/07/16 at 12:00 Apixaban (Eliquis) 5 mg BID GTB Last administered on 07/21/16 09:09; Admin Dose 5 MG; Start 07/07/16 at 21:00 Bisacodyl (Dulcolax Supp) 10 mg PRN [place] ; Start 07/07/16 at 12:00 Carvedilol (Coreg) 3.125 mg BID GTB Last administered on 07/21/16 09:10; Admin Dose 3.125 MG; Start 07/07/16 at 21:00 Chlorhexidine Gluconate (Peridex) 15 ml Q12 MM Last administered on 07/21/16 09:09; Admin Dose 15 ML; Start 07/07/16 at 21:00 Clonazepam (Klonopin) 0.5 mg TID GTB Last administered on 07/21/16 09:15; Admin Dose 0.5 MG; Start 07/07/16 at 13:00 Fentanyl (Duragesic 50 Mcg/Hr Patch) 1 patch Q72H TRANSDERM Last administered on 07/20/16 17:04; Admin Dose 1 PATCH; Start 07/08/16 at 12:00 Ferrous Sulfate (Feosol Liquid Cup) 330 mg BID GTB Last administered on 09:09; Admin Dose 330 MG; Start 07/07/16 at 21:00 Lansoprazole (Prevacid) 30 mg DAILY GTB Last administered on 07/21/16 09:10; Admin Dose 30 MG; Start 07/08/16 at 09:00 Levalbuterol (Xopenex Neb) 0.63 mg Q6H PRN NEB WHEEZING AND SOB Last administered on 07/14/16 22:47; Admin Dose 0.63 MG; Start 07/07/16 at 12:00 Magnesium Hydroxide (Milk Of Mag) 30 ml DAILY PRN GTB CONSTIPATION; Start 07/07 at 12:00 Metoclopramide HCl (Reglan) 10 mg Q6 PRN GTB NAUSEA AND/OR VOMITING; Start at 17:00 Sodium Biphosphate/ Sodium Phosphate (Fleet Enema) 135 ml PRN PRN [place] severe constipation; Start 07/07/16 at 17:00 Quetiapine Fumarate (Seroquel) 12.5 mg DAILY GTB Last administered on 09:10; Admin Dose 12.5 MG; Start 07/08/16 at 09:00 Valsartan (Diovan) 80 mg DAILY GTB Last administered on 07/21/16 09:10; Admin Dose 80 MG; Start 07/08/16 at 09:00 Zinc Sulfate (Zinc Sulfate) 220 mg DAILY GTB Last administered on 07/21/16 09: 09; Admin Dose 220 MG; Start 07/08/16 at 09:00 Multivitamins (Thera-Plus) 5 ml DAILY GTB Last administered on 07/21/16 09:11 ; Admin Dose 5 ML; Start 07/08/16 at 09:00 Ascorbic Acid (Vitamin C) 500 mg DAILY GTB Last administered on 07/21/16 09:10 ; Admin Dose 500 MG; Start 07/08/16 at 09:00 Miscellaneous Information 1 ea NOTE XX ; Start 07/07/16 at 17:30 Glucose (Glutose) 15 gm Q15M PRN PO DECREASED GLUCOSE; Start 07/07/16 at 17:30 Glucose (Glutose) 22.5 gm Q15M PRN PO DECREASED GLUCOSE; Start 07/07/16 at 17: 30 Dextrose (D50w Syringe) 25 ml Q15M PRN IV DECREASED GLUCOSE; Start 07/07/16 at 17:30 Dextrose (D50w Syringe) 50 ml Q15M PRN IV DECREASED GLUCOSE; Start 07/07/16 at 17:30 Glucagon (Glucagen) 1 mg Q15M PRN IM DECREASED GLUCOSE; Start 07/07/16 at 17:30 Glucose (Glutose) 15 gm Q15M PRN BUCCAL DECREASED GLUCOSE; Start 07/07/16 at 17 :30 Sodium Hypochlorite (Dakin'S (1/4 Strength)) 1 applic QHS IRR Last administered on 07/20/16 21:13; Admin Dose 1 APPLIC; Start 07/11/16 at 21:00 Docusate Sodium (Colace Liquid Cup) 100 mg DAILY GTB Last administered on 09:09; Admin Dose 100 MG; Start 07/12/16 at 10:00 Linezolid (Zyvox) 600 mg BID PO Last administered on 07/21/16 09:10; Admin Dose 600 MG; Start 07/12/16 at 21:00 Amikacin Sulfate AMIKACIN PER PHARMACY NOTE XX ; Start 07/12/16 at 13:30 Amikacin Sulfate/ Sodium Chloride (Amikacin/NS) 104 ml @ 102 mls/hr Q36H IVPB Last administered on 07/20/16 04:34; Admin Dose 102 MLS/HR; Start 07/12/16 at 16 :00 Silver Sulfadiazine (Thermazene 1% 25 Gm) 1 applic DAILY TOP Last administered on 07/21/16 09:11; Admin Dose 1 APPLIC; Start 07/14/16 at 09:00 Metronidazole (Flagyl) 500 mg Q8 NGT Last administered on 07/21/16 05:28; Admin Dose 500 MG; Start 07/14/16 at 15:30 Diagnostic Test (Pha) (Accu-Chek) 1 ea Q6 XX Last administered on 07/21/16 06: 03; Admin Dose 1 EA; Start 07/19/16 at 18:00 Insulin Human NPH (Humulin N) 18 unit Q6 SC Last administered on 07/21/16 11: 38; Admin Dose 18 UNIT; Start 07/20/16 at 18:00 Diphenhydramine HCl (Benadryl) 25 mg Q6H PRN IV ITCHING Last administered on 20:10; Admin Dose 25 MG; Start 07/20/16 at 19:30 JUAN POSADA Jul 21, 2016 12:12
--- NOTE | 2016-07-21 14:58 | CONS ---
Date/Time of Note Date/Time of Note DATE: 07/21/16 TIME: 14:57 Assessment/Plan Assessment/Plan Chief Complaint/Hosp Course SUBJECTIVE: No events overnight, no fevers MICROBIOLOGY: Wound culture grew Pseudomonas aeruginosa, Providencia stuartii, VRE INDWELLINGS: Trach, PEG, Rivera. ANTIMICROBIALS: The patient is on: 1. Zyvox 3. Amikacin. 4. Flagyl PHYSICAL EXAMINATION: GENERAL: This is a chronically ill-appearing, elderly woman who is in no distress. HEENT: Head atraumatic, normocephalic. Sclerae anicteric. Buccal mucosa dry. NECK: Supple. Tracheostomy present. CHEST: Rise symmetrical. Breath sounds diminished to bases. HEART: S1, S2. ABDOMEN: Soft. Bowel tones present. EXTREMITIES: Left foot gangrene ASSESSMENT: 1. Persistent leukocytosis, likely 2 to #2. 2. Left foot gangrene with open wound culture growing multi-drug resistant organisms. 3. Chronic respiratory failure. 4. Dysphagia. 5. Chronic encephalopathy. 6. Severe peripheral arterial and vascular disease, not a candidate for revascularization procedure per previous admission vascular note. 7. Diabetes. PLAN: Remains unchanged, continue abx, Flagyl for anaerobic coverage. Management as per primary team and consultants. The patient is DNR status. staff Problems: Consultation Date/Type/Reason Admit Date/Time Jul 06, 2016 at 22:42 Initial Consult Date 07/12/16 Type of Consultation: id Referring Provider: JOSR LORENZO MD Exam/Review of Systems Vital Signs Vitals Vital Signs Date Time Temp Pulse Resp B/P Pulse Ox O2 Delivery O2 Flow Rate FiO2 07/21/16 14:14 98.2 109 18 118/60 96 Mechanical Ventilator 07/21/16 13:50 30 Intake and Output 07/20/16 07/20/16 07/21/16 15:00 23:00 07:00 Intake Total 960 ml 965 ml Output Total 500 ml 450 ml Balance 460 ml 515 ml Results Result Diagram: 07/21/16 0552 07/21/16 0552 Results 24 hrs Laboratory Tests Test 07/20/16 17:58 07/21/16 00:44 07/21/16 05:27 07/21/16 05:52 Bedside Glucose 160 203 230 H White Blood Count 16.3 H Red Blood Count 3.56 L Hemoglobin 9.6 L Hematocrit 32.4 L Mean Corpuscular Volume 91.0 Mean Corpuscular Hemoglobin 27.0 L Mean Corpuscular Hemoglobin Concent 29.6 L Red Cell Distribution Width 21.1 H Platelet Count 582 H Mean Platelet Volume 10.8 H Neutrophils % 67.9 Lymphocytes % 20.0 Monocytes % 7.9 Eosinophils % 3.1 Basophils % 0.5 Nucleated Red Blood Cells % 0.0 Neutrophils # 11.1 H Lymphocytes # 3.3 H Monocytes # 1.3 H Eosinophils # 0.5 Basophils # 0.1 Nucleated Red Blood Cells # 0.0 Sodium Level 137 Potassium Level 4.3 Chloride Level 94 L Carbon Dioxide Level 30 Anion Gap 17 H Blood Urea Nitrogen 27 H Creatinine 0.63 Glucose Level 217 Calcium Level 9.5 Test 07/21/16 11:35 Bedside Glucose 207 Medications Medications Current Medications Acetaminophen (Tylenol Tab) 650 mg Q6 PRN GTB PAIN Last administered on 04:49; Admin Dose 650 MG; Start 07/07/16 at 12:00 Apixaban (Eliquis) 5 mg BID GTB Last administered on 07/21/16 09:09; Admin Dose 5 MG; Start 07/07/16 at 21:00 Bisacodyl (Dulcolax Supp) 10 mg PRN [place] ; Start 07/07/16 at 12:00 Carvedilol (Coreg) 3.125 mg BID GTB Last administered on 07/21/16 09:10; Admin Dose 3.125 MG; Start 07/07/16 at 21:00 Chlorhexidine Gluconate (Peridex) 15 ml Q12 MM Last administered on 07/21/16 09:09; Admin Dose 15 ML; Start 07/07/16 at 21:00 Clonazepam (Klonopin) 0.5 mg TID GTB Last administered on 07/21/16 13:32; Admin Dose 0.5 MG; Start 07/07/16 at 13:00 Fentanyl (Duragesic 50 Mcg/Hr Patch) 1 patch Q72H TRANSDERM Last administered on 07/20/16 17:04; Admin Dose 1 PATCH; Start 07/08/16 at 12:00 Ferrous Sulfate (Feosol Liquid Cup) 330 mg BID GTB Last administered on 09:09; Admin Dose 330 MG; Start 07/07/16 at 21:00 Lansoprazole (Prevacid) 30 mg DAILY GTB Last administered on 07/21/16 09:10; Admin Dose 30 MG; Start 07/08/16 at 09:00 Levalbuterol (Xopenex Neb) 0.63 mg Q6H PRN NEB WHEEZING AND SOB Last administered on 07/14/16 22:47; Admin Dose 0.63 MG; Start 07/07/16 at 12:00 Magnesium Hydroxide (Milk Of Mag) 30 ml DAILY PRN GTB CONSTIPATION; Start 07/07 at 12:00 Metoclopramide HCl (Reglan) 10 mg Q6 PRN GTB NAUSEA AND/OR VOMITING; Start at 17:00 Sodium Biphosphate/ Sodium Phosphate (Fleet Enema) 135 ml PRN PRN [place] severe constipation; Start 07/07/16 at 17:00 Quetiapine Fumarate (Seroquel) 12.5 mg DAILY GTB Last administered on 09:10; Admin Dose 12.5 MG; Start 07/08/16 at 09:00 Valsartan (Diovan) 80 mg DAILY GTB Last administered on 07/21/16 09:10; Admin Dose 80 MG; Start 07/08/16 at 09:00 Zinc Sulfate (Zinc Sulfate) 220 mg DAILY GTB Last administered on 07/21/16 09: 09; Admin Dose 220 MG; Start 07/08/16 at 09:00 Multivitamins (Thera-Plus) 5 ml DAILY GTB Last administered on 07/21/16 09:11 ; Admin Dose 5 ML; Start 07/08/16 at 09:00 Ascorbic Acid (Vitamin C) 500 mg DAILY GTB Last administered on 07/21/16 09:10 ; Admin Dose 500 MG; Start 07/08/16 at 09:00 Miscellaneous Information 1 ea NOTE XX ; Start 07/07/16 at 17:30 Glucose (Glutose) 15 gm Q15M PRN PO DECREASED GLUCOSE; Start 07/07/16 at 17:30 Glucose (Glutose) 22.5 gm Q15M PRN PO DECREASED GLUCOSE; Start 07/07/16 at 17: 30 Dextrose (D50w Syringe) 25 ml Q15M PRN IV DECREASED GLUCOSE; Start 07/07/16 at 17:30 Dextrose (D50w Syringe) 50 ml Q15M PRN IV DECREASED GLUCOSE; Start 07/07/16 at 17:30 Glucagon (Glucagen) 1 mg Q15M PRN IM DECREASED GLUCOSE; Start 07/07/16 at 17:30 Glucose (Glutose) 15 gm Q15M PRN BUCCAL DECREASED GLUCOSE; Start 07/07/16 at 17 :30 Sodium Hypochlorite (Dakin'S (1/4 Strength)) 1 applic QHS IRR Last administered on 07/20/16 21:13; Admin Dose 1 APPLIC; Start 07/11/16 at 21:00 Docusate Sodium (Colace Liquid Cup) 100 mg DAILY GTB Last administered on 09:09; Admin Dose 100 MG; Start 07/12/16 at 10:00 Linezolid (Zyvox) 600 mg BID PO Last administered on 07/21/16 09:10; Admin Dose 600 MG; Start 07/12/16 at 21:00 Amikacin Sulfate AMIKACIN PER PHARMACY NOTE XX ; Start 07/12/16 at 13:30 Amikacin Sulfate/ Sodium Chloride (Amikacin/NS) 104 ml @ 102 mls/hr Q36H IVPB Last administered on 07/20/16 04:34; Admin Dose 102 MLS/HR; Start 07/12/16 at 16 :00 Silver Sulfadiazine (Thermazene 1% 25 Gm) 1 applic DAILY TOP Last administered on 07/21/16 09:11; Admin Dose 1 APPLIC; Start 07/14/16 at 09:00 Metronidazole (Flagyl) 500 mg Q8 NGT Last administered on 07/21/16 13:32; Admin Dose 500 MG; Start 07/14/16 at 15:30 Diagnostic Test (Pha) (Accu-Chek) 1 ea Q6 XX Last administered on 07/21/16 06: 03; Admin Dose 1 EA; Start 07/19/16 at 18:00 Diphenhydramine HCl (Benadryl) 25 mg Q6H PRN IV ITCHING Last administered on 20:10; Admin Dose 25 MG; Start 07/20/16 at 19:30 Insulin Human NPH (Humulin N) 22 unit Q6 SC ; Start 07/21/16 at 18:00 JEFF SERNA NP Jul 21, 2016 14:58
[2016-07-21] MEDS: AMIKACIN 1,000 MG in SOD CHLORIDE 0.9% 100 ML IVPB SCH (17:00)
[2016-07-21] MEDS ORDERED: NPH, HUMAN INSULIN ISOPHANE 3ML VIAL SC SCH (18:00)
[2016-07-21 18:49] LABS: HOMOCYSTEINE - CARDIOVASCULAR 6.8 umol/L (<10.4)
== END 2016-07-21 18:59 | DRG 870 ==
LOC: E/R 20:07 → ICU 22:42 → TEL 07-12 00:14
PROVIDERS: ADMIT Internal Medicine; ATTEND Internal Medicine
PROC: 5A1955Z Respiratory Ventilation, Greater than 96 Consecutive Hours (ICD-10-PCS; principal; 2016-07-06)
PROC: 4A033R1 Measurement of Arterial Saturation, Peripheral, Percutaneous Approach (ICD-10-PCS; 2016-07-06)
PROC: 30233N1 Transfusion of Nonautologous Red Blood Cells into Peripheral Vein, Percutaneous Approach (ICD-10-PCS; 2016-07-08)
DX: A41.9 Sepsis, unspecified organism (principal); J96.22 Acute and chronic respiratory failure with hypercapnia; Z99.11 Dependence on respirator [ventilator] status; G93.40 Encephalopathy, unspecified; J18.9 Pneumonia, unspecified organism; Z93.0 Tracheostomy status; I42.9 Cardiomyopathy, unspecified; I69.154 Hemiplegia and hemiparesis following nontraumatic intracerebral hemorrhage affecting left non-dominant side; N39.0 Urinary tract infection, site not specified; E11.52 Type 2 diabetes mellitus with diabetic peripheral angiopathy with gangrene; I50.30 Unspecified diastolic (congestive) heart failure; L03.116 Cellulitis of left lower limb; R65.20 Severe sepsis without septic shock; Z66 Do not resuscitate; R13.10 Dysphagia, unspecified; Z93.1 Gastrostomy status; I11.0 Hypertensive heart disease with heart failure; G89.4 Chronic pain syndrome; E66.01 Morbid (severe) obesity due to excess calories; Z68.37 Body mass index [BMI] 37.0-37.9, adult; L89.899 Pressure ulcer of other site, unspecified stage; I48.2 Chronic atrial fibrillation; D50.9 Iron deficiency anemia, unspecified; E11.621 Type 2 diabetes mellitus with foot ulcer; L97.529 Non-pressure chronic ulcer of other part of left foot with unspecified severity; D47.3 Essential (hemorrhagic) thrombocythemia; B96.5 Pseudomonas (aeruginosa) (mallei) (pseudomallei) as the cause of diseases classified elsewhere; Z16.24 Resistance to multiple antibiotics; F01.50 Vascular dementia, unspecified severity, without behavioral disturbance, psychotic disturbance, mood disturbance, and anxiety; Z79.4 Long term (current) use of insulin; Z98.1 Arthrodesis status; Z86.718 Personal history of other venous thrombosis and embolism; Z86.711 Personal history of pulmonary embolism; Z96.653 Presence of artificial knee joint, bilateral; Z82.3 Family history of stroke
CPT/HCPCS: 36415; 36430; 36600; 71010; 80048; 80053; 80150; 80202; 81001; 81003; 82270; 82607; 82728; 82746; 82803; 82962; 83036; 83090; 83540; 83605; 83735; 83921; 84100; 84484; 85025; 85045; 85610; 85730; 86850; 86900; 86901; 86920; 87040; 87070; 87081; 87086; 89220; 90686; 93005; 94002; 94003; 94640; 96365; 96366; 96367; J0278; J0692; J1200; J1815; J1956; J2185; J2916; J3370; J7030; J7040; J7050; P9016; P9612

== ENCOUNTER 2016-07-26 16:11 | Inpatient (IN) | payer BC, MEDICARE, OTHER ==
[~2016-07-26] VITALS: Ht 165.1 cm; Wt 95.5 kg
[~2016-07-26 16:11] MED LIST changes: +ACET-141 GTB; +ACET-2047 GTB; +ACID1TAB15 GTB; +APIX5TAB GTB; +ASCO500S2 GTB; +BISA10SU55 RC; +CARV3.1260 GTB; -CARV6.2579 GTB; -CLON-379 GTB; +CRAN3875 GTB; +CRAN425C GTB; -ENOX120D8 SQ; -FAMO20TA18 GTB; -HYDR-902 GTB; +HYDR-906 GTB; -INSU100V3 IJ; -IPRA3AMP INHALATION; -LACT1CAP57 GTB; +LANT3I SC; +LEVA0.634 INHALATION; -LINA5TAB GTB; -LISI-313 GTB; -LORA1TAB GTB; +MAGN400O4 GTB; -METF500T4 GTB; +MULT9LIQ3 GTB; -MULT9LIQ4 GTB; +NA P135E RC; -NITR0.4T6 SL; +NPH,100I5 SQ; -NPH,100V SQ; +QUET25TA26 GTB; -QUET25TA33 GTB; -SPIR100T31 GTB; +VALS80TA2 GTB; +ZINC220T GTB
[2016-07-26] MEDS ORDERED: FENTAnyl 50 MCG/ML VIAL IV ONE (16:30)
[2016-07-26] MEDS ORDERED: ETOMIDATE 20 MG INJ IV ONE (16:30)
[2016-07-26] MEDS ORDERED: METR500T GTB (17:14)
[2016-07-26] MEDS ORDERED: LINE600T GTB (17:15)
[2016-07-26] MEDS ORDERED: BEN25 GTB (17:16)
[2016-07-26] MEDS ORDERED: METO10TA96 GTB (17:18)
[2016-07-26] MEDS ORDERED: FLEETPED PR (17:19)
[2016-07-26] MEDS ORDERED: AMIN30LI GTB (17:21)
--- NOTE | 2016-07-26 17:27 | ERA ---
ER Documentation Chief Complaint Date/Time DATE: 07/26/16 TIME: 17:21 Chief Complaint R39, V TACH AND LOW BP, FROM [facility] HPI 66-year-old female history of chronic encephalopathy, trach dependent, with a DNR order who presents with ventricular tachycardia, hypotension. The patient presents from assisted living facility. History is mostly provided via EMS. The patient has an advanced directive that states selective treatment, DNR. Further history is unobtainable. ROS Critical Medications Home Meds Reported Medications Insulin Aspart* (Novolog Insulin Pen*) 100 Unit/Ml Soln, 0 SC .SLIDING SCALE AC , EA 0-150=0, 151-200=2 UNITS, 201-250=4 UNITS, 251-300=6 UNITS, 301-350=8 UNITS, 351-400=10 UNITS, >400=12 UNITS; NOTIFY MD IF BS IS ABOVE 400 OR BELOW 60. 07/26/16 Multivitamin with Minerals (Multivitamins with Minerals) 1 Each Tablet, 1 EACH GTB DAILY, TAB 07/26/16 Ferrous Sulfate (Ferrous Sulfate) 220 Mg/5 Ml Solution, 220 MG GTB BID 07/26/16 Amino Acids/Protein Hydrolys (PRO-STAT LIQUID) 30 Ml Liquid.pkt, 30 ML GTB DAILY 07/26/16 Sod Phosphate/Sod Biphosphate* (Fleet* Enema Pediatric) 66.6 Ml Soln, 66.6 ML GA Q2DAYS Y for CONSTIPATION, ENEMA 07/26/16 Metoclopramide Hcl* (Metoclopramide Hcl*) 10 Mg Tablet, 10 MG GTB Q6H Y for NAUSEA AND OR VOMITING, TAB 07/26/16 Diphenhydramine Hcl* (Benadryl*) 25 Mg Cap, 25 MG GTB Q6H Y for ITCHING, CAP 07/26/16 Linezolid* (Zyvox*) 600 Mg Tablet, 600 MG GTB Q12 for 7 Days, TAB 07/26/16 Metronidazole* (Flagyl*) 500 Mg Tablet, 500 MG GTB Q8 for 7 Days, TAB 07/26/16 Zinc Sulfate* (Zinc Sulfate*) 220 Mg Tablet, 220 MG GTB DAILY, TAB 07/06/16 Ascorbic Acid* (Vitamin C* Liq) 500 Mg/5 Ml Syrup, 500 MG GTB DAILY, ML 07/06/16 Valsartan* (Diovan*) 80 Mg Tablet, 80 MG GTB DAILY, TAB hold if sbp below 110 hr below 60 07/06/16 Cran/Vitc/Mannose/Inulin/Brom (Uti-Stat Liquid) 3,875 Mg/30 Ml Liquid, 3875 MG GTB BID 07/06/16 Acetaminophen* (Acetaminophen*) 500 MG Extra Strength Tablet, 1000 MG GTB Q6H Y for MODERATE PAIN LEVEL 4-6, TAB AND FEVER 101 AND ABOVE 07/06/16 Acetaminophen* (Acetaminophen*) 650 Mg Tablet, 650 MG GTB Q4 Y for MILD PAIN LEVEL 1-3, #30 TAB 07/06/16 Acetaminophen* (Acetaminophen*) 650 Mg Tablet, 650 MG GTB trach change Y for PAIN, #30 TAB give 30 min prior to trach change 07/06/16 NPH, Human Insulin Isophane (Humulin N Kwikpen) 100 Unit/1 Ml Insuln.pen, 22 UNIT SQ Q6, EA 07/06/16 Hydrocodone/Acetaminophen ([place] 5-325 Tablet) 1 Each Tablet, 1 EACH GTB Q4H WHILE AWAKE Y for SEVERE PAIN LEVEL 7-10, TAB 07/06/16 Magnesium Hydroxide* (Milk Of Magnesia*) 400 Mg/5 Ml Oral.susp, 30 ML GTB DAILY Y for CONSTIPATION, ML 07/06/16 Bisacodyl (Dulcolax) 10 Mg Supp.rect, 10 MG RC prn for CONSTIPATION, SUPP.RECT 07/06/16 Apixaban* (Eliquis*) 5 Mg Tablet, 5 MG GTB BID, TAB 07/06/16 Acidophilus/Pectin, [place] (ACIDOPHILUS-PECTIN CAPTAB) 1 Each Tablet, 1 EACH GTB BID, TAB 07/06/16 Quetiapine Fumarate* (Seroquel*) 25 Mg Tablet, 12.5 MG GTB DAILY, #30 TAB 07/06/16 Docusate Sodium* (Docusate Sodium*) 100 Mg Capsule, 100 MG GTB DAILY, #30 CAP 07/06/16 Carvedilol* (Carvedilol*) 3.125 Mg Tablet, 3.125 MG GTB BID, #60 TAB HOLD IF SBP<110 OR HR<60 07/06/16 Metoclopramide* (Reglan*) 10 Mg Tablet, 10 MG GTB Q6 Y for NAUSEA AND/OR VOMITING, TAB 04/21/16 Lansoprazole* (Lansoprazole*) 30 Mg Capsule.dr, 30 MG GTB DAILY, CAP 04/21/16 Fentanyl Patch* (Duragesic Patch*) 50 Mcg/Hr Transdermal Patch, 1 PATCH TD Q72H , PATCH 04/21/16 Clonazepam* (Clonazepam*) 0.5 Mg Tablet, 0.5 MG GTB, TAB TAKE 04/11TAB-0.25=Q8H FOR 14 DAYS, THEN BID FOR 14 DAYS, THEN QD FOR 14 DAYS THEN DIC. 04/21/16 Discontinued Reported Medications Levalbuterol Hcl* (Levalbuterol Hcl*) 0.63 Mg/3 Ml Vial.neb, 0.63 MG INHALATION Q6H Y for WHEEZING AND SOB, VIAL 07/06/16 Cranberry Extract (Cranberry) 425 Mg Capsule, 425 MG GTB DAILY, CAP 07/06/16 Multivit &Minerals/Ferrous Fum (COMPLETE MULTIVIT-MINERAL LIQ) 9 Mg/15 Ml Liquid , 3 MG GTB DAILY 07/06/16 Insulin Glargine* (Lantus*) 100 Unit/Ml Soln, 10 UNIT SC QHS, #1 VIAL 07/06/16 Na Phos,M-B/Na Phos,Di-Ba (ENEMA READY TO USE) 135 Ml Enema, 135 ML RC prn Y for severe constipation, ENEMA 07/06/16 Chlorhexidine Gluconate (Peridex) 473 Ml Mouthwash, 15 ML MM Q12, BOTTLE 04/21/16 Glucagon HCl (Glucagon HCl) 1 Mg Vial, 1 MG IJ DAILY Y for LOW GLUCOSE, VIAL 04/21/16 Ferrous Sulfate (Ferrous Sulfate) 300 Mg/5 Ml Liquid, 330 MG GTB BID 04/21/16 Allergies Allergies: Coded Allergies: codeine (Verified Allergy, Unknown, 07/26/16) PMhx/Soc History of Surgery: Yes (KNEE REPLACE, BACK FUSION, G TUBE, PEG) Hx Neurological Disorder: Yes (ENCEPHALOPATHY, CVA 2016, PSYCHOSIS) Hx Psychiatric Problems: Yes (PSYCHOSIS) Hx Miscellaneous Medical Probl: No Physical Exam Vitals Vital Signs Date Time Temp Pulse Resp B/P Pulse Ox O2 Delivery O2 Flow Rate FiO2 07/26/16 17:30 118 14 85/55 100 Mechanical Ventilator 07/26/16 16:33 133 21 88/59 100 Mechanical Ventilator 07/26/16 16:23 133 15 100 100 07/26/16 16:15 229 14 55/40 97 Physical Exam General: Subtle movement of head, eyes and right upper extremity Head: Normocephalic, atraumatic. Eyes: Pupils equally reactive, EOM intact ENT: Moist mucous membranes Neck: Supple, no lymphadenopathy Respiratory: Lungs clear bilaterally, no distress Cardiovascular: Significant tachycardia no murmurs, rubs, or gallops Abdominal: Soft, non-tender, non-distended, no peritoneal signs : Deferred MSK: Movement of right upper extremity Neurologic: Limited exam, and encephalopathic Skin: No rash, no significant breakdown Psych: Unable to assess Results 24 hrs Current Medications Medications (Trade) Dose Ordered Sig/Josefina Route PRN Reason Start Time Stop Time Status Last Admin Dose Admin Etomidate (Amidate) 8 mg ONCE ONCE IV 07/26/16 16:30 07/26/16 16:33 DC 07/26/16 16:19 Fentanyl (Sublimaze) 25 mcg ONCE ONCE IV 07/26/16 16:30 07/26/16 16:33 DC 07/26/16 16:20 Procedures/MDM EKG, MONITORS, & DIAGNOSTIC IMAGING: EKG: I reviewed and interpreted a 12-lead EKG. Rhythm: Wide-complex tachycardia in the 200s consistent with ventricular tachycardia Ectopy: None Intervals: No abnormalities ST segments: No elevations or depressions T waves: No contiguous inversions EKG #2 EKG: I reviewed and interpreted a 12-lead EKG. Rhythm: Sinus tachycardia Ectopy: None Intervals: No abnormalities ST segments: No elevations or depressions T waves: No contiguous inversions PROCEDURES: Procedural Sedation: Pre-assessment performed. See preceding complete history and physical for details. Time out performed. Lead Software Tester, Continuous Pulse Ox. See sedation documentation for details. This was an emergent condition Medication(s): 8 milligrams etomidate, 25 mg fentanyl Complications: No hypoxic or apneic events Recovered without incident. Greater than 15 minutes of face to face time included in sedation and recovery. Cardioversion: Pre-assessment performed. See preceding complete history and physical for details. Time out performed. Lead Software Tester, Continuous Pulse Ox. See sedation documentation for details. Technique: Biphasic Synchronized Cardioversion 200J: Successful Complications: Hypotension corrected with synchronized cardioversion Critical Care: Time: 35 minutes Treatments/Evaluations: Close monitoring for dangerous arrhythmia and cardiovascular collapse, while treating with advance cardiac medications and techniques. LAB INTERPRETATION: Deferred MEDICAL DECISION MAKING: The patient arrives with hypotensive ventricular tachycardia. The patient had spontaneous movement. The patient did have a DNR order however it was confusing his multiple boxes were checked. The box for selective treatment was checked. I believe that the patient had a correctable rhythm with comfort measures, synchronous cardioversion. The patient had pulses therefore I believe that was acting in the patient's best interest with synchronized cardioversion with procedural sedation. The patient was made comfortable with etomidate and fentanyl. Successful synchronized cardioversion to sinus rhythm was obtained. Her hypotension corrected immediately. Directly after cardioversion the patient's daughter was available. She states "stop everything ". The patient's daughter verbalizes that she does not want any further interventions for this patient. She would like the patient made hospice. She understands the risks, benefits, alternatives. I offered medication alone including amiodarone, magnesium, IV fluids. The patient's daughter states that the patient would not want these interventions. She states that she does not want repeat EKGs, chest x-ray, laboratory testing or other interventions. She states that she would like to move her mother to hospice. Comfort measures have been initiated. I kept the patient and/or family informed of laboratory and diagnostic imaging results throughout the emergency room course. DISPOSITION PLAN: Admission to telemetry to facilitate hospice transition CONSULTATION: Accepting care team and consultations: I discussed the current laboratory data, diagnostic imaging and emergency care provided. Admitting team: Dr. Suarez Admitting team indication: Insurance directed Departure Diagnosis: Primary Impression: Ventricular tachycardia Additional Impressions: Cardiogenic shock Encephalopathy chronic Comfort measures only status DNR (do not resuscitate) Condition: Serious BARBIE LOZANO MD Jul 26, 2016 17:27
[2016-07-26] MEDS ORDERED: FERR220S2 GTB (17:31)
[2016-07-26] MEDS ORDERED: MULT-105 GTB (17:33)
[2016-07-26] MEDS ORDERED: NOVO3I SC (17:37)
[2016-07-26] MEDS ORDERED: ACETAMINOPHEN 325 MG TAB PO PRN (18:00)
[2016-07-26] MEDS ORDERED: ONDANSETRON 4 MG INJ IV PRN (18:00)
[2016-07-26] MEDS: DIPHENHYDRAMINE 25 MG CAP PO PRN (22:38)
[2016-07-26] MEDS ORDERED: LORAZEPAM 2 MG INJ ONE (23:43)
[2016-07-27] VITALS (23 sets, daily range): BP systolic 117–133; BP diastolic 55–61; PULSE 90–111; RESP 14–20; TEMP 96.8; Ht 165.1 cm; Wt 95.5 kg
[2016-07-27] MEDS ORDERED: DIPHENHYDRAMINE 25 MG CAP PO SCH
[2016-07-27] MEDS ORDERED: FENTAnyl PATCH 50 MCG/HR TRANSDERM SCH
[2016-07-27] MEDS: morphine LIQ (20 MG/ML PO SYG) PEG PRN ×5 (00:17→22:19)
[2016-07-27] MEDS: LORAZEPAM 2 MG INJ IM PRN (00:22)
[2016-07-27] MEDS: HYDROCODONE/APAP (5/325) TAB PEG PRN ×3 (00:24→16:04)
[2016-07-27] MEDS: clonAZEPAM 0.5 MG TAB PEG SCH ×4 (00:55→22:18)
[2016-07-27] MEDS ORDERED: HYDROCODONE/APAP (5/325) TAB PEG PRN (01:00)
[2016-07-27] MEDS ORDERED: HYDROCODONE/APAP (5/325) TAB PEG SCH (01:00)
--- NOTE | 2016-07-27 03:56 | HP ---
DATE OF ADMISSION: 07/26/2016 Chief complaint and history was obtained from medical record and discussion with ER physician and wi th the patient's daughter. HISTORY OF PRESENT ILLNESS: The patient is a 66-year-old female with history of CVA with left-sided hemiplegia, diabetes, hypertension, severe peripheral vascular disease with left leg gangrene. The patient was sent from subacute unit with ventricular tachycardia and was hypotensive. The patient was treated with synchronized cardioversion with procedural sedation. The patient was given IV fent anyl and etomidate. The patient was converted to sinus rhythm, and hypotension resolved. The beboe eleazar's daughter subsequently arrived in the ER and requested the ER physician to stop everything inclu ding no further labs, no repeat EKG, and other diagnostic studies. She wanted her mother to be on c omfort care. The patient is being admitted for further evaluation and management. The patient, at the time of my examination, was sedated. Normally at baseline she keeps her eyes closed and follows only simple commands. The patient has dense left hemiplegia and has been bedridden and declining f or the past several months. In fact, the patient was recently diagnosed with gangrene of the left l ower leg and PVD, however was not thought to be candidate for any further studies and treatment due to poor prognosis. The patient, since admission at [facility] ER, has not had any seizures , no reported bleeding from any site. PAST MEDICAL HISTORY: The patient has history of deep venous thrombosis and pulmonary embolism, sta tus post IVC filter placement. The patient also has dysphagia and is being fed through G-tube. PAST SURGICAL HISTORY: The patient is status post knee replacements, status post back fusion, statu s post hysterectomy, tracheostomy, and G-tube placement, status post craniotomy for CVA with hemorrh agic conversion. ALLERGIES: CODEINE. SOCIAL HISTORY: No smoking, no alcohol. FAMILY HISTORY: Noncontributory for patient's condition at this time. PHYSICAL EXAMINATION: GENERAL: The patient is lethargic, breathing comfortably on vent. VITAL SIGNS: Blood pressure 89/61, pulse 98. The patient is on vent and is saturating 100%. She i s also on FIO2 of 100%. No temperature recording was available in the ER. HEENT: No eye discharge or redness. Oropharynx examination deferred. Nose and ears normal externa lly. NECK: Tracheostomy in place, mild secretions. No mass. CHEST: Revealed diminished air entry at bases. No use of accessory muscles. CARDIOVASCULAR: S1, S2 normal. No murmur. ABDOMEN: Soft, nondistended, nontender. EXTREMITIES: No significant edema. The patient's left leg is gangrenous. Pedal pulses could not b e felt. NEUROLOGIC: The patient is lethargic, and no useful communication was possible. LABORATORY DATA: Were not done, and no other diagnostic studies were done. IMPRESSION: 1. Status post ventricular tachycardia. 2. Cerebrovascular accident. 3. Respiratory failure. 4. Hypertension. 5. Peripheral vascular disease with gangrene of the left leg. 6. History of atrial fibrillation. 7. Anemia. 8. Diabetes mellitus. PLAN: As discussed with ER physician, the patient's daughter requested comfort care only. I also m et with her in the ER, and she requested only comfort care with no labs or further diagnostic studie s. I had a meeting with the patient's , Lino, as well as daughter in the past, and they we re both planning toward only comfort care at that time, and since the patient has declined further i n the past few weeks, the patient is an appropriate candidate for comfort care only. We will reques t hospice care. We will hold off on all medication except comfort care, and comfort care will be op timized. Dictated By: JOSR PONCE/DENNIS Conf#: [id number] DID#: [id number]
[2016-07-27] MEDS ORDERED: PENDING SANTYL ORDER FOR WOUND CARE XX PRN (04:00)
[2016-07-27] MEDS: DIPHENHYDRAMINE 25 MG CAP PO PRN ×3 (04:32→22:24)
[2016-07-27 07:47] LABS: CREATINE KINASE < 20 IU/L (23-200)
[2016-07-27 07:52] LABS: CK-MB 1.13 ng/ml (0.0-2.4)
--- NOTE | 2016-07-27 17:42 | PN ---
Date/Time of Note Date/Time of Note DATE: 07/27/16 TIME: 17:40 Assessment/Plan VTE Prophylaxis VTE Prophylaxis Intervention: SCD's Lines/Catheters IV Catheter Type (from Nrsg): Saline Lock Urinary Cath still in place: Yes Reason Cath still needed: urinary retention Assessment/Plan Assessment/Plan 1. Status post ventricular tachycardia. 2. Cerebrovascular accident. 3. Respiratory failure. 4. Hypertension. 5. Peripheral vascular disease with gangrene of the left leg. 6. History of atrial fibrillation. 7. Anemia. 8. Diabetes mellitus. 9. DNR status. Pending hospice eval Discussed plan of care with patient's daughter at the bedside. Further recommendations based on clinical course. Plan of care discussed with Dr. Suarez. Subjective 24 Hr Interval Summary Free Text/Dictation Patient is comfortable on ventilator support, awake. Exam/Review of Systems Vital Signs Vitals Vital Signs Date Time Temp Pulse Resp B/P Pulse Ox O2 Delivery O2 Flow Rate FiO2 07/27/16 17:25 97 17 97 45 07/27/16 15:43 98.6 118/60 07/27/16 01:56 Mechanical Ventilator Exam PHYSICAL EXAMINATION: GENERAL: The patient is lethargic, breathing comfortably on vent. HEENT: No eye discharge or redness. Oropharynx examination deferred. Nose and ears normal externally. NECK: Tracheostomy in place, mild secretions. No mass. CHEST: Revealed diminished air entry at bases. No use of accessory muscles. CARDIOVASCULAR: S1, S2 normal. No murmur. ABDOMEN: Soft, nondistended, nontender. EXTREMITIES: No significant edema. The patient's left leg is gangrenous. Pedal pulses could not be felt. NEUROLOGIC: The patient is lethargic, and no useful communication was possible. Results Results 24 hrs Laboratory Tests Test 07/27/16 06:40 Creatine Kinase < 20 L Creatine Kinase Index Creatinine Kinase MB (Mass) 1.13 Troponin I 0.070 Medications Medications Current Medications Diphenhydramine HCl (Benadryl) 25 mg Q6 PRN PO ITCHING Last administered on t 11:59; Admin Dose 25 MG; Start 07/26/16 at 22:30; Stop 07/30/16 at 00:00 Acetaminophen/ Hydrocodone Bitart ([place] (5/325)) 1 tab Q4 PRN PEG pain Last administered on 07/27/16 16:04; Admin Dose 1 TAB; Start 07/26/16 at 23:00; Stop 07/30/16 at 00:00 Fentanyl (Duragesic 50 Mcg/Hr Patch) 1 patch Q3D TRANSDERM Last administered on 07/27/16 00:17; Admin Dose 1 PATCH; Start 07/27/16 at 00:00 Morphine Sulfate (Roxanol) 15 mg Q2H PRN PEG PAIN Last administered on 16:04; Admin Dose 15 MG; Start 07/26/16 at 23:30 Lorazepam (Ativan) 1 mg Q4H PRN IM agitation Last administered on 07/27/16 00: 22; Admin Dose 1 MG; Start 07/26/16 at 23:30 Clonazepam (Klonopin) 0.5 mg TID PEG Last administered on 07/27/16 13:48; Admin Dose 0.5 MG; Start 07/26/16 at 23:30 Miscellaneous Information (Pending [facility] Order For Wound Care) This patient rosas... PRN PRN XX WOUND CARE; Start 07/27/16 at 04:00 DELIO GUILLERMO Jul 27, 2016 17:42
[2016-07-27] MEDS ORDERED: FENTAnyl PATCH 75 MCG/HR TRANSDERM SCH (18:30)
[2016-07-28] VITALS (24 sets, daily range): BP systolic 108–141; BP diastolic 53–91; PULSE 102–108; RESP 14–19
[2016-07-28] MEDS: HYDROCODONE/APAP (5/325) TAB PEG PRN (00:51)
[2016-07-28] MEDS: morphine LIQ (20 MG/ML PO SYG) PEG PRN ×4 (02:11→16:36)
[2016-07-28] MEDS: clonAZEPAM 0.5 MG TAB PEG SCH ×3 (10:07→21:21)
--- NOTE | 2016-07-28 15:13 | PN ---
Date/Time of Note Date/Time of Note DATE: 07/28/16 TIME: 15:05 Assessment/Plan VTE Prophylaxis VTE Prophylaxis Intervention: other Lines/Catheters [facility]from [facility] Saline Lock Urinary Cath still in place: Yes Assessment/Plan Assessment/Plan DO NOT RESUSCITATE - Status post ventricular tachycardia. - Cerebrovascular accident. - Respiratory failure. - Hypertension. - Peripheral vascular disease with gangrene of the left leg. - History of atrial fibrillation. - Anemia. - Diabetes mellitus. Plan- only comfort care per staff.Dr Suarez has spoken to family. Hospice eval pending. Pending hospice eval Discussed plan of care with patient's daughter at the bedside. Further recommendations based on clinical course. Plan of care discussed with Dr. Suarez. Subjective 24 Hr Interval Summary Free Text/Dictation afebrile, gets agitated at times. Plan for comfort care only Dr. Suarez has spoken with the family. Hospice eval pending discussed with the staff. Subjective hx not possible: pt non-verbal Constitutional: requiring IVF, requiring O2 Respiratory: other Exam/Review of Systems Vital Signs Vitals Vital Signs Date Time Temp Pulse Resp B/P Pulse Ox O2 Delivery O2 Flow Rate FiO2 07/28/16 12:23 107 07/28/16 11:40 97.8 18 114/53 98 07/28/16 11:34 45 07/27/16 01:56 Mechanical Ventilator Intake and Output 07/27/16 07/27/16 07/28/16 15:00 23:00 07:00 Intake Total 740 ml 680 ml Output Total 350 ml 1000 ml Balance 390 ml -320 ml Exam Constitutional: non-verbal Eyes: nl sclera ENMT: nl external ears & nose, other (Trach intact) Neck: non-tender Respiratory: diminished breath sounds Cardiovascular: nl pulses Gastrointestinal: non-tender, other (G-tube intact) Musculoskeletal: muscle weakness Extremities: normal pulses Neurological: lethargic Skin: other Lymph: nontender Medications Medications Current Medications Diphenhydramine HCl (Benadryl) 25 mg Q6 PRN PO ITCHING Last administered on t 22:24; Admin Dose 25 MG; Start 07/26/16 at 22:30; Stop 07/30/16 at 00:00 Acetaminophen/ Hydrocodone Bitart ([place] (5/325)) 1 tab Q4 PRN PEG pain Last administered on 07/28/16 00:51; Admin Dose 1 TAB; Start 07/26/16 at 23:00; Stop 07/30/16 at 00:00 Morphine Sulfate (Roxanol) 15 mg Q2H PRN PEG PAIN Last administered on 10:08; Admin Dose 15 MG; Start 07/26/16 at 23:30 Lorazepam (Ativan) 1 mg Q4H PRN IM agitation Last administered on 07/27/16 00: 22; Admin Dose 1 MG; Start 07/26/16 at 23:30 Clonazepam (Klonopin) 0.5 mg TID PEG Last administered on 07/28/16 13:32; Admin Dose 0.5 MG; Start 07/26/16 at 23:30 Miscellaneous Information (Pending [facility] Order For Wound Care) This patient rosas... PRN PRN XX WOUND CARE; Start 07/27/16 at 04:00 Fentanyl (Duragesic 75 Mcg/Hr Patch) 1 patch Q72H TRANSDERM Last administered on 07/27/16 19:10; Admin Dose 1 PATCH; Start 07/27/16 at 18:30 JUAN POSADA Jul 28, 2016 15:13
[2016-07-28] MEDS: LORAZEPAM 2 MG INJ IM PRN ×2 (16:47→21:22)
[2016-07-28] MEDS: DIPHENHYDRAMINE 25 MG CAP PO PRN (16:47)
[2016-07-29] VITALS (18 sets, daily range): BP systolic 93–145; BP diastolic 50–63; PULSE 99–114; RESP 14–22
[2016-07-29] MEDS: DIPHENHYDRAMINE 25 MG CAP PO PRN ×2 (01:40→11:09)
[2016-07-29] MEDS: morphine LIQ (20 MG/ML PO SYG) PEG PRN ×2 (01:41→11:08)
[2016-07-29] MEDS: LORAZEPAM 2 MG INJ IM PRN ×2 (07:01→12:14)
[2016-07-29] MEDS: clonAZEPAM 0.5 MG TAB PEG SCH ×2 (10:16→13:00)
[2016-07-29] MEDS: HYDROCODONE/APAP (5/325) TAB PEG PRN (12:14)
[2016-07-29] MEDS ORDERED: morphine 10 MG INJ IV SCH (14:00)
[2016-07-29] MEDS ORDERED: LORAZEPAM 2 MG INJ IV SCH ×2 (14:00→14:30)
[2016-07-29] MEDS ORDERED: ONDANSETRON 4 MG INJ IV PRN (14:30)
[2016-07-29] MEDS ORDERED: ATROPINE SULFATE 1% 5ML SL PRN (14:30)
[2016-07-29] MEDS: morphine (DRIP) 100 MG/100 ML 100 ML IV SCH (14:35)
[2016-07-29] MEDS ORDERED: ARTIFICIAL TEARS 15 ML OPH BOTH EYES PRN (15:00)
[2016-07-29] MEDS ORDERED: HYOSCYAMINE 0.125 MG SUBL TAB SL PRN (15:00)
[2016-07-29] MEDS ORDERED: BISACODYL 10 MG SUPP PR PRN (15:00)
[2016-07-29] MEDS ORDERED: DIMETHICONE STICK TOP PRN (15:00)
[2016-07-29] MEDS ORDERED: PROCHLORPERAZINE 10 MG TAB GTB PRN (15:00)
[2016-07-29] MEDS ORDERED: ALBUTEROL/IPRATROPIUM (NEB) 3 ML AMP HHN PRN (15:00)
--- NOTE | 2016-07-29 15:10 | PN ---
Date/Time of Note Date/Time of Note DATE: 07/29/16 TIME: 15:08 Assessment/Plan VTE Prophylaxis VTE Prophylaxis Intervention: SCD's Lines/Catheters [facility] Saline Lock Urinary Cath still in place: Yes Reason Cath still needed: urinary retention Assessment/Plan Chief Complaint/Hosp Course Assessment/Plan 1. Status post ventricular tachycardia. 2. Cerebrovascular accident. 3. Respiratory failure. 4. Hypertension. 5. Peripheral vascular disease with gangrene of the left leg. 6. History of atrial fibrillation. 7. Anemia. 8. Diabetes mellitus. 9. DNR status. Hospice eval is in progress. Further recommendations based on clinical course. Plan of care discussed with Dr. Suarez. Problems: Exam/Review of Systems Vital Signs Vitals Vital Signs Date Time Temp Pulse Resp B/P Pulse Ox O2 Delivery O2 Flow Rate FiO2 07/29/16 13:19 112 14 40 07/29/16 12:10 99.8 102/63 96 07/27/16 01:56 Mechanical Ventilator Intake and Output 07/28/16 07/28/16 07/29/16 14:59 22:59 06:59 Intake Total 600 ml Output Total 750 ml 450 ml Balance -750 ml 150 ml Exam PHYSICAL EXAMINATION: GENERAL: The patient is lethargic, breathing comfortably on vent. HEENT: No eye discharge or redness. Oropharynx examination deferred. Nose and ears normal externally. NECK: Tracheostomy in place, mild secretions. No mass. CHEST: Revealed diminished air entry at bases. No use of accessory muscles. CARDIOVASCULAR: S1, S2 normal. No murmur. ABDOMEN: Soft, nondistended, nontender. EXTREMITIES: No significant edema. The patient's left leg is gangrenous. Pedal pulses could not be felt. NEUROLOGIC: The patient is lethargic, and no useful communication was possible. Medications Medications Current Medications Lorazepam 1 mg 1 mg Q2 PRN IV ANXIETY; Start 07/29/16 at 14:30 Morphine Sulfate/ Sodium Chloride (morphine) 100 ml @ 2 mls/hr TITRATE IV Last administered on 07/29/16t 14:35; Admin Dose 2 MLS/HR; Start 07/29/16 at 14:30 Ondansetron HCl (Zofran Inj) 4 mg Q6H PRN IV NAUSEA AND/OR VOMITING; Start at 14:30 Acetaminophen (Tylenol Tab) 650 mg Q6H PRN GTB PAIN AND OR ELEVATED TEMP; Start 07/29/16 at 14:30 Atropine Sulfate (Atropine Sulfate) 2 drop Q2H PRN SL PRN SECRETIONS; Start at 14:30 Lorazepam (Ativan) 1 mg Q6 IV ; Start 07/29/16 at 18:00 Bisacodyl (Dulcolax Supp) 10 mg DAILY PRN OR CONSTIPATION; Start 07/29/16 at 15 :00 Acetaminophen (Tylenol Supp) 650 mg Q6H PRN OR FEVER; Start 07/29/16 at 15:00 Hyoscyamine (Levsin (Sl)) 0.125 mg Q4H PRN SL EXCESS SECRETIONS; Start at 15:00 Prochlorperazine (Compazine) 10 mg Q6H PRN GTB NAUSEA AND/OR VOMITING; Start at 15:00 DELIO GUILLERMO Jul 29, 2016 15:10
[2016-07-29] MEDS: LORAZEPAM 2 MG INJ IV SCH (18:12)
[2016-07-29] MEDS: LORAZEPAM 2 MG INJ IV PRN (21:40)
[2016-07-29] MEDS: ALBUTEROL/IPRATROPIUM (NEB) 3 ML AMP HHN PRN (22:50)
[2016-07-29] MEDS: DIPHENHYDRAMINE 50 MG INJ IV PRN (23:05)
[2016-07-30] MEDS: ACETAMINOPHEN 325 MG TAB GTB PRN ×2 (04:59→20:05)
[2016-07-30] MEDS: LORAZEPAM 2 MG INJ IV SCH ×4 (05:37→17:16)
[2016-07-30 07:50] VITALS: BP 115/55; RESP 18
--- NOTE | 2016-07-30 13:51 | PN ---
DATE: 07/30/2016 LEVEL OF CARE: GIP SUBJECTIVE: Follow up on CVA, respiratory failure, diabetes, dysphagia, peripheral vascular disease , gangrene of the left leg. The patient appears short of breath. The patient remains off vent, mor phine dose was increased to 3 mg last night due to increasing shortness of breath. The patient is g etting IV Ativan around the clock for anxiety. No reported fever or chills. No reported vomiting. The patient is beginning to develop increasing tachycardia. PHYSICAL EXAMINATION: GENERAL: The patient is lethargic. VITAL SIGNS: Temperature 98.2, pulse 117, respirations 18, blood pressure 115/55, O2 saturation 97% . HEENT: No eye discharge or redness. Nose and ears normal externally. NECK: Tracheostomy in place. CHEST: Few coarse breath sounds anteriorly. CARDIOVASCULAR: S1, S2 normal. Sinus tachycardia. ABDOMEN: Soft, nondistended, nontender. EXTREMITIES: Gangrenous left leg. Trace edema. NEUROLOGIC: The patient is lethargic and no useful communication possible. IMPRESSION: 1. Cerebrovascular accident. 2. Respiratory failure. 3. Paroxysmal atrial fibrillation. 4. Diabetes. PLAN: We will increase morphine dose to 4 mg an hour. Continue DuoNeb for chest congestion and atr opine drops for secretions. Plan of care discussed with the patient's family and with the staff [facility] as well as [facility] staff nurse. Dictated By: JOSR PONCE/DENNIS Conf#: [id number] DID#: [id number]
[2016-07-30] MEDS: morphine (DRIP) 100 MG/100 ML 100 ML IV SCH (15:58)
[2016-07-30] MEDS: DIPHENHYDRAMINE 50 MG INJ IV PRN (17:53)
[2016-07-30] MEDS: LORAZEPAM 2 MG INJ IV PRN (19:52)
[2016-07-30 20:00] VITALS: BP 128/59; RESP 17
[2016-07-31] MEDS: LORAZEPAM 2 MG INJ IV SCH ×4 (01:45→17:28)
[2016-07-31] MEDS: ACETAMINOPHEN 325 MG TAB GTB PRN ×2 (04:30→12:53)
[2016-07-31 08:42] VITALS: BP 96/50; RESP 18
--- NOTE | 2016-07-31 11:38 | HP ---
DATE OF ADMISSION: 07/26/2016 DATE OF ADMISSION TO HOSPICE: 07/29/2016 LEVEL OF CARE: [facility]. PRIMARY DIAGNOSES: 1. Cerebrovascular accident with ventilatory-dependent respiratory failure. 2. Peripheral vascular disease. 3. Gangrene of the left lower leg. 4. History of ventricular tachycardia cardiac arrest recently. 5. Hypertension. 6. Paroxysmal atrial fibrillation. 7. Anemia. 8. Diabetes. REASON FOR ADMISSION: Under [facility]. HISTORY: Patient is a 66-year-old female with history of CVA which left her hemiplegic on the left side. The patient had a hemorrhagic transformation and underwent craniotomy. The patient since then has had tracheostomy as well G-tube for feeding. The patient is essentially bedridden and recently developed acute on chronic respiratory failure and was discharged to subacute unit. The p atient also was noted to have left leg gangrene and peripheral vascular disease. The patient had be en declining for the last several weeks and has had multiple admissions in the hospital and progress ively has gotten worse. The patient has severe peripheral vascular disease and was seen by Dr. Crystal melton and has developed progressively severe gangrene of the left foot as well as leg. I met with t he patient's daughter and explained them about poor quality of life. The patient was admitt ed at [facility] on 07/26/2016 after she was noted to be hypertensive. Patient wa s noted to be in ventricular tachycardia. The patient underwent synchronized cardioversion in the ER and was subsequently admitted to the floor. The patient, at baseline, is lethargic and would open eyes on stimuli and occasionally will follow commands; however, since her V-tach cardiac arrest, the patient is not able to communicate at all and family requested hospice care to provide comfort. The patient's family requested no labs. REVIEW OF SYSTEMS: Rather limited as the patient is nonverbal, although there was no reported seizu re. No reported vomiting or diarrhea. No reported abdominal distention. The patient did not have any wheezing. PAST MEDICAL HISTORY: As stated above. In addition, the patient has history of deep venous thrombo sis and pulmonary embolism, status post IVC filter placement. The patient also has history of dysph agia, history of G-tube placement. PAST SURGICAL HISTORY: The patient is status post knee replacement, status post back fusion, status post hysterectomy, tracheostomy and G-tube placement, status post craniotomy for CVA with hemorrhag ic conversion. ALLERGIES: CODEINE. SOCIAL HISTORY: No smoking, no alcohol. FAMILY HISTORY: Noncontributory. PHYSICAL EXAMINATION: GENERAL: The patient is lethargic and nonverbal. VITAL SIGNS: Temperature 99.7, pulse 116, respirations 16, blood pressure 119/77. HEENT: No eye discharge or redness. Extraocular movements could not be tested. Nose and ears veterinary medicine scientist ally normal. NECK: Tracheostomy in place, mild secretions. No mass. CHEST: Revealed diminished air entry at bases with scattered rhonchi. CARDIOVASCULAR: S1, S2 normal. No murmur. ABDOMEN: Soft, nondistended. EXTREMITIES: Edema present and extensive gangrene of the left lower extremity. NEUROLOGIC: The patient is lethargic and occasionally would respond; patient was started on morphine drip. LABORATORY DATA: Recent labs: WBC 6.3, hemoglobin 9.6, platelets ____. Chemistry: Sodium 137, pota ssium 4.3, BUN 27, creatinine 0.6, glucose 217, calcium 9.7. IMPRESSION: 1. Cerebrovascular accident. 2. Gtooq-el-qdfztut respiratory failure. 3. Paroxysmal atrial fibrillation. 4. Dysphagia. 5. Peripheral vascular disease. PLAN: 1. The patient will be admitted under [facility] hospice at [facility] level of care. 2. The ventilator has been removed. Patient will be started on IV morphine which will be titrated up for comfort care. 3. Paroxysmal atrial fibrillation. Currently the patient is in sinus rhythm. 4. The patient will be started on morphine drip at 2 mg an hour and will be titrated up to provide comfort. We will also add breathing treatment q.6h. and p.r.n. 5. The patient remains appropriate for hospice care. The patient will be given IV morphine as well as IV Ativan. Will continue soft restraints so that p atient does not pull tubes and lines. I spoke with the patient's daughter as well as her an d explained them will continue to follow her from a medical standpoint We will also use soft restra ints p.r.n. Dictated By: JOSR PONCE/DENNIS Conf#: [id number] DID#: [id number]
[2016-07-31] MEDS: DIPHENHYDRAMINE 50 MG INJ IV PRN (12:53)
--- NOTE | 2016-07-31 13:28 | PN ---
DATE: 07/31/2016 LEVEL OF CARE: [facility]. SUBJECTIVE: Follow up on CVA, respiratory failure, gangrene of the left leg, dysphagia, paroxysmal atrial fibrillation. The patient continues to decline and appears tachypneic. The patient also acc ording to family has history of itching and ____. The patient may be a feeling itchy, causing her t o be anxious, short of breath. Therefore dose of Benadryl has been increased to 50 IV q.6h and also morphine drip has been increased to 6 mg an hour. The patient did not have any fever or chills. N o reported vomiting, no reported seizures. Patient has now started spiking fever. PHYSICAL EXAMINATION VITAL SIGNS: T-max 101.1, pulse 109, respirations 18, blood pressure 96/50. SUBJECTIVE/INTERVAL HISTORY: The patient remains lethargic. CHEST: Revealed coarse breath sounds anteriorly and diminished breath sounds at bases. CARDIOVASCULAR: S1, S2, sinus tachycardia. ABDOMEN: Soft, nontender. EXTREMITIES: Edema present with gangrene of the left leg. NEUROLOGIC: The patient is lethargic and no useful communication was possible. IMPRESSION: 1. End-stage cerebral vascular accident. 2. Acute respiratory failure. 3. Paroxysmal atrial fibrillation. 4. Diabetes. PLAN: As mentioned above, morphine dose has been increased to 6 mg an hour and Benadryl has been in creased to 50 q.6h. Will continue to optimize comfort care. The patient remains terminally ill and remains appropriate for [facility] level of care. Plan of care discussed with nursing staff. Dictated By: JOSR PONCE/DENNIS Conf#: [id number] DID#: [id number]
[2016-08-01] MEDS: LORAZEPAM 2 MG INJ IV SCH ×4 (00:06→18:05)
[2016-08-01 09:09] VITALS: BP 131/60; PULSE 100
[2016-08-01] MEDS ORDERED: HYDROmorphONE 50 MG in DEXTROSE 5% 45 ML IV SCH (14:00)
[2016-08-01] MEDS: DIPHENHYDRAMINE 50 MG INJ IV PRN (14:47)
[2016-08-01] MEDS: ALBUTEROL/IPRATROPIUM (NEB) 3 ML AMP HHN PRN (14:57)
--- NOTE | 2016-08-01 14:59 | PN ---
DATE: 08/01/2016 LEVEL OF CARE: GIP. SUBJECTIVE: Follow up on CVA,chronic respiratory failure, diabetes, gangrene of the left leg, peripheral vascular disease. The patient continues decline and has increasing shortness breath and coarse breath sounds. No reported vomiting, no reported seizure, no bleeding from any site. PHYSICAL EXAMINATION: GENERAL: Reveals the patient to be unresponsive. VITAL SIGNS: Temperature 97.6, pulse 100, respirations 28, up from 18 yesterday , blood pressure 130/60, O2 saturation 97%. NECK: Tracheostomy in place. Secretions present. CHEST: Revealed coarse breath sounds. CARDIOVASCULAR: S1, S2 normal. No murmur. ABDOMEN: Soft, nondistended. EXTREMITIES: Trace edema. Gangrenous left leg. NEUROLOGIC: The patient is nonverbal. IMPRESSION: 1. Acute cerebrovascular accident. 2. Respiratory failure. 3. Paroxysmal atrial fibrillation. 4. Diabetes. 5. Peripheral vascular disease. 6. Gangrene of the left lower extremity. PLAN: The patient will be switched to. The patient is currently on morphine at 6 mg an hour. Will switch her to IV Dilaudid at 1 mg an hour and will continue to optimize comfort care. Continue Ativan around the clock for anxiety and IV Benadryl for possible itching leading to restlessness. The patient remains terminally ill and appropriate for [facility] level of care. Dictated By: JOSR PONCE/DENNIS Conf#: [id number] DID#: [id number] MTDD
[2016-08-01] MEDS: HYDROmorphONE 50 MG in DEXTROSE 5% 45 ML IV SCH (15:02)
[2016-08-02] MEDS: LORAZEPAM 2 MG INJ IV SCH ×4 (00:10→17:42)
[2016-08-02 07:49] VITALS: BP 124/57; RESP 22
[2016-08-02] MEDS: LORAZEPAM 2 MG INJ IV PRN (14:51)
--- NOTE | 2016-08-02 15:09 | PN ---
DATE: 08/02/2016 SUBJECTIVE: Follow up for end stage CVA and respiratory failure, depression, diabetes and dysphagia. The patient was started on IV Dilaudid drip yesterday. The patient's dose was increased to 1.5 mg an hour yesterday night. The patient had irregular breathing and coarse breath sounds and therefore, the dose will be increased to 2 mg per hour. The patient had occasional chills, although there was no documented fever. No reported vomiting, no reported seizure-like activity. The patient remains nonverbal PHYSICAL EXAMINATION: GENERAL: The patient is lethargic, nonverbal. VITAL SIGNS: Temperature 97.3, pulse 99, respiration 22 to 27, blood pressure 124/57, O2 saturation 99% on 6 liters. HEENT: No eye discharge or redness. Nose and ears normal externally. NECK: Tracheostomy in place, mild secretions. CHEST: Revealed scattered coarse breath sounds. CARDIOVASCULAR: S1, S2 normal. Mild sinus tachycardia. ABDOMEN: Soft, nondistended. EXTREMITIES: No leg edema. Left gangrenous leg unchanged. IMPRESSION: End-stage cerebrovascular accident, respiratory failure, paroxysmal atrial fibrillation, diabetes and hypertension. PLAN: Will increase Dilaudid to 2 mg an hour and continue to optimize comfort care. For secretion, we will continue Levsin drops. The patient continues to require Ativan 1 mg q.6h. around the clock for anxiety. Plan of care discussed with nursing staff. I spoke with daughter & updated her. She requested that G tube feeding be stopped. I told patient's RN to dc tube feeding Dictated By: JOSR PONCE/DENNIS Conf#: [id number] DID#: [id number] MTDD
[2016-08-02] MEDS: DIPHENHYDRAMINE 50 MG INJ IV PRN (17:42)
[2016-08-02] MEDS: HYDROmorphONE 50 MG in DEXTROSE 5% 45 ML IV SCH ×2 (20:06→20:08)
[2016-08-03] MEDS: LORAZEPAM 2 MG INJ IV SCH ×4 (01:00→18:00)
--- NOTE | 2016-08-03 17:45 | PN ---
DATE: 08/03/2016 SUBJECTIVE: Follow up on CVA, history of cardiac arrest, respiratory failure, diabetes, hypertensio n, peripheral vascular disease and gangrene of the left leg. The patient progressively has declined and is requiring Dilaudid at 2 mg an hour. The patient still appears short of breath and has inter mittent rectal bleeding and chest congestion. The patient did not have any vomiting, no fever or ch ills. Patient remains unresponsive. G-tube feeding was stopped yesterday as per family request. PHYSICAL EXAMINATION: GENERAL: The patient is nonverbal. VITAL SIGNS: Temperature 97.7, pulse 99, respirations 22. NECK: Tracheostomy in place. CHEST: Coarse breath sounds. Chest equal air entry bilaterally. Intermittent coarse breath sounds . CARDIOVASCULAR: S1, S2 normal. Sinus tachycardia. ABDOMEN: Soft, nontender. EXTREMITIES: No edema. Gangrene of left leg unchanged. NEUROLOGIC: The patient is nonverbal. IMPRESSION: 1. Cerebrovascular accident. 2. Respiratory failure. 3. Paroxysmal atrial fibrillation. 4. Peripheral vascular disease. 5. History of ventricular tachycardic arrest recently. PLAN: The patient's Dilaudid dose will be increased to 4 mg an hour and will continue IV Ativan 1 m g q.6h. around the clock and q. 2 hours p.r.n. and continue Levsin drops for secretions and DuoNeb f or chest congestion. The patient remains terminally ill and remains appropriate for [facility] level of ca re. Plan of care discussed with nursing staff as well as [facility] nurse. Dictated By: JOSR PONCE/DENNIS Conf#: [id number] DID#: [id number]
[2016-08-03] MEDS: HYDROmorphONE 50 MG in DEXTROSE 5% 45 ML IV SCH (18:00)
[2016-08-03 21:31] VITALS: BP 103/55; RESP 16
[2016-08-04] MEDS: HYDROmorphONE 50 MG in DEXTROSE 5% 45 ML IV SCH ×2 (04:48→21:04)
[2016-08-04] MEDS: LORAZEPAM 2 MG INJ IV SCH ×5 (05:46→23:57)
--- NOTE | 2016-08-04 13:52 | PN ---
DATE: 08/04/2016 SUBJECTIVE: Followup on end-stage CVA, respiratory failure, diabetes, dysphagia and gangrene of the left leg. The patient continues to decline and has had periods of apnea and has increasing shortne ss of breath and chest congestion. The patient did not have any fever or chills, no reported bleedi ng from any site. Patient remains lethargic. No reported seizures. PHYSICAL EXAMINATION: GENERAL: The patient is lethargic, nonverbal. VITAL SIGNS: Temperature 98, pulse 97, respirations 28, O2 saturation 94% on 6 liters. HEENT: No eye discharge or redness. NECK: Tracheostomy in place, mild secretion. CHEST: Revealed coarse breath sounds anteriorly. CARDIOVASCULAR: S1, S2 normal. No murmur. ABDOMEN: Soft, nondistended, nontender. EXTREMITIES: No edema, and gangrene of the left foot has worsened. NEUROLOGIC: The patient is nonverbal. IMPRESSION: 1. End-stage cerebrovascular accident. 2. Respiratory failure. 3. Diabetes. 4. Dysphagia. 5. Peripheral vascular disease and gangrene of the left leg. PLAN: Patient's Dilaudid dose will be increased to 5 mg an hour. We will continue IV Ativan 1 mg q . 6 hours around the clock and q. 12 hours p.r.n. Continue breathing treatments, Levsin drops as be fore. Plan of care discussed with nursing staff and with desk nurse. Dictated By: JOSR PONCE/DENNIS Conf#: [id number] DID#: [id number]
[2016-08-04 20:58] VITALS: BP 113/53; RESP 18
[2016-08-05] MEDS: LORAZEPAM 2 MG INJ IV SCH ×3 (05:11→17:31)
[2016-08-05] MEDS: HYDROmorphONE 50 MG in DEXTROSE 5% 45 ML IV SCH ×3 (06:18→18:24)
[2016-08-05 08:57] VITALS: BP 117/58; RESP 14
[2016-08-05] MEDS: ACETAMINOPHEN 650 MG SUPP PR PRN (09:47)
[2016-08-06] MEDS: LORAZEPAM 2 MG INJ IV SCH ×3 (03:48→18:10)
--- NOTE | 2016-08-06 07:00 | PN ---
DATE: SUBJECTIVE: Follow up on respiratory failure, CVA, diabetes, peripheral vascular disease and gangre ne of the left leg. The patient continues to decline and has been spiking temperatures since this m orning. The patient did not have any vomiting, no reported bleeding from any site. Patient has sli ght mottling of the extremities. No reported seizures. PHYSICAL EXAMINATION: GENERAL: The patient noted to be unresponsive. VITAL SIGNS: T-max 100.9, pulse 100, respirations 14, blood pressure 117/58. NECK: Tracheostomy in place, mild secretions. CHEST: Revealed coarse breath sounds anteriorly. CARDIOVASCULAR: S1, S2 normal. Sinus tachycardia. ABDOMEN: Soft, nondistended. EXTREMITIES: No edema. NEUROLOGIC: The patient is unresponsive. IMPRESSION: 1. Acute respiratory failure. The patient does have episodic tachypnea, will increase Dilaudid to 6 mg an hour. Continue Ativan 1 mg q. 6 hours around the clock and q. 2 hours p.r.n. 2. Tylenol was given this for fever and the patient continues to receive Levsin for secretions. Th e patient continues to decline and remains appropriate for [facility] level of care. The patient also has decreasing urine output. Dictated By: JOSR PONCE/DENNIS Conf#: [id number] DID#: [id number]
[2016-08-06] MEDS: HYDROmorphONE 50 MG in DEXTROSE 5% 45 ML IV SCH ×2 (07:53→12:26)
[2016-08-06 08:00] VITALS: BP 112/57; RESP 21
--- NOTE | 2016-08-06 12:39 | PN ---
Date/Time of Note Date/Time of Note DATE: 08/06/16 TIME: 12:39 Assessment/Plan VTE Prophylaxis VTE Prophylaxis Intervention: other Lines/Catheters IV Catheter Type (from Nrs): Peripheral IV Urinary Cath still in place: Yes Reason Cath still needed: skin wounds contaminated by urine Assessment/Plan Chief Complaint/Hosp Course 1. Acute respiratory failure. The patient does have episodic tachypnea, will increase Dilaudid to 6 mg an hour. Continue Ativan 1 mg q. 6 hours around the clock and q. 2 hours p.r.n. 2. Tylenol was given this for fever and the patient continues to receive Levsin for secretions. The patient continues to decline and remains appropriate for [facility] level of care. The patient also has decreasing urine output. Problems: Subjective 24 Hr Interval Summary Free Text/Dictation Patient resting comfortably, not responsive Exam/Review of Systems Vital Signs Vitals Vital Signs Date Time Temp Pulse Resp B/P Pulse Ox O2 Delivery O2 Flow Rate FiO2 08/06/16 08:00 98.8 93 21 112/57 95 08/06/16 01:22 6.0 08/05/16 08:00 Nasal Cannula Intake and Output 08/05/16 08/05/16 08/06/16 15:00 23:00 07:00 Intake Total 20 ml 38.5 ml Output Total 250 ml Balance 20 ml -211.5 ml Exam Constitutional: well developed Head: atraumatic, normocephalic Neck: supple Respiratory: diminished breath sounds Cardiovascular: regular rate and rhythm Gastrointestinal: non-tender, soft Extremities: normal pulses Medications Medications Current Medications Lorazepam (Ativan) 1 mg Q2 PRN IV ANXIETY Last administered on 08/02/16 14:51 ; Admin Dose 1 MG; Start 07/29/16 at 14:30 Ondansetron HCl (Zofran Inj) 4 mg Q6H PRN IV NAUSEA AND/OR VOMITING; Start at 14:30 Acetaminophen (Tylenol Tab) 650 mg Q6H PRN GTB PAIN AND OR ELEVATED TEMP Last administered on 07/31/16 12:53; Admin Dose 650 MG; Start 07/29/16 at 14:30 Atropine Sulfate (Atropine Sulfate) 2 drop Q2H PRN SL PRN SECRETIONS; Start at 14:30 Lorazepam (Ativan) 1 mg Q6 IV Last administered on 08/06/16 12:00; Admin Dose 1 MG; Start 07/29/16 at 18:00 Bisacodyl (Dulcolax Supp) 10 mg DAILY PRN [place] CONSTIPATION; Start 07/29/16 at 15 :00 Acetaminophen (Tylenol Supp) 650 mg Q6H PRN FL FEVER Last administered on 09:47; Admin Dose 650 MG; Start 07/29/16 at 15:00 Hyoscyamine (Levsin (Sl)) 0.125 mg Q4H PRN SL EXCESS SECRETIONS Last administered on 08/05/16 09:47; Admin Dose 0.125 MG; Start 07/29/16 at 15:00 Prochlorperazine (Compazine) 10 mg Q6H PRN GTB NAUSEA AND/OR VOMITING; Start at 15:00 Diphenhydramine HCl 50 mg 50 mg Q6H PRN IV ITCHING Last administered on 17:42; Admin Dose 50 MG; Start 07/30/16 at 23:00 Hydromorphone HCl/ Dextrose (Dilaudid/D5W) 50 ml @ 0 mls/hr TITRATE IV Last administered on 08/06/16 12:26; Admin Dose 6 MLS/HR; Start 08/01/16 at 14:00 MICHOACANO HOBBS Aug 06, 2016 12:39
[2016-08-06] MEDS: HYDROMORPHONE IV SCH (16:17)
[2016-08-06] MEDS: SOD CHLORIDE 0.9% IV SCH (16:17)
[2016-08-06] MEDS: DIPHENHYDRAMINE 50 MG INJ IV PRN (16:41)
[2016-08-06 20:24] VITALS: BP 105/49; RESP 20
[2016-08-07] MEDS: LORAZEPAM 2 MG INJ IV SCH ×5 (00:06→23:47)
[2016-08-07] MEDS: HYDROMORPHONE IV SCH ×3 (00:07→21:39)
[2016-08-07] MEDS: SOD CHLORIDE 0.9% IV SCH ×3 (00:07→21:39)
[2016-08-07 08:00] VITALS: BP 107/55; RESP 18
[2016-08-07] MEDS: ACETAMINOPHEN 650 MG SUPP PR PRN ×2 (10:02→20:06)
--- NOTE | 2016-08-07 12:32 | PN ---
Date/Time of Note Date/Time of Note DATE: 08/07/16 TIME: 12:31 Assessment/Plan VTE Prophylaxis VTE Prophylaxis Intervention: other Lines/Catheters IV Catheter Type (from Nrs): Peripheral IV Urinary Cath still in place: Yes Reason Cath still needed: skin wounds contaminated by urine Assessment/Plan Chief Complaint/Hosp Course 1. Acute respiratory failure. The patient does have episodic tachypnea, will increase Dilaudid to 6 mg an hour. Continue Ativan 1 mg q. 6 hours around the clock and q. 2 hours p.r.n. 2. Tylenol was given this for fever and the patient continues to receive Levsin for secretions. The patient continues to decline and remains appropriate for [facility] level of care. The patient also has decreasing urine output. Problems: Subjective 24 Hr Interval Summary Free Text/Dictation Patient resting comfortably Exam/Review of Systems Vital Signs Vitals Vital Signs Date Time Temp Pulse Resp B/P Pulse Ox O2 Delivery O2 Flow Rate FiO2 08/07/16 09:00 6.0 08/07/16 08:00 101.3 117 18 107/55 95 08/05/16 08:00 Nasal Cannula Intake and Output 08/06/16 08/06/16 08/07/16 15:00 23:00 07:00 Intake Total 50 ml 55 ml 77.5 ml Output Total 300 ml 300 ml Balance 50 ml -245 ml -222.5 ml Exam Constitutional: well developed Head: atraumatic, normocephalic Neck: supple Cardiovascular: regular rate and rhythm Gastrointestinal: non-tender, soft Extremities: normal pulses Medications Medications Current Medications Lorazepam (Ativan) 1 mg Q2 PRN IV ANXIETY Last administered on 08/02/16 14:51 ; Admin Dose 1 MG; Start 07/29/16 at 14:30 Ondansetron HCl (Zofran Inj) 4 mg Q6H PRN IV NAUSEA AND/OR VOMITING; Start at 14:30 Acetaminophen (Tylenol Tab) 650 mg Q6H PRN GTB PAIN AND OR ELEVATED TEMP Last administered on 07/31/16 12:53; Admin Dose 650 MG; Start 07/29/16 at 14:30 Atropine Sulfate (Atropine Sulfate) 2 drop Q2H PRN SL PRN SECRETIONS; Start at 14:30 Lorazepam (Ativan) 1 mg Q6 IV Last administered on 08/07/16 12:17; Admin Dose 1 MG; Start 07/29/16 at 18:00 Bisacodyl (Dulcolax Supp) 10 mg DAILY PRN [place] CONSTIPATION; Start 07/29/16 at 15 :00 Acetaminophen (Tylenol Supp) 650 mg Q6H PRN [place] FEVER Last administered on 10:02; Admin Dose 650 MG; Start 07/29/16 at 15:00 Hyoscyamine (Levsin (Sl)) 0.125 mg Q4H PRN SL EXCESS SECRETIONS Last administered on 08/05/16 09:47; Admin Dose 0.125 MG; Start 07/29/16 at 15:00 Prochlorperazine (Compazine) 10 mg Q6H PRN GTB NAUSEA AND/OR VOMITING; Start at 15:00 Diphenhydramine HCl 50 mg 50 mg Q6H PRN IV ITCHING Last administered on 16:41; Admin Dose 50 MG; Start 07/30/16 at 23:00 Hydromorphone HCl/ Sodium Chloride (Dilaudid/NS) 50 ml @ 0 mls/hr TITRATE IV Last administered on 08/07/16 11:19; Admin Dose 6.5 MLS/HR; Start 08/06/16 at 16:30 MICHOACANO HOBBS Aug 07, 2016 12:32
[2016-08-07 22:03] VITALS: BP 105/51; RESP 22
[2016-08-08] MEDS: LORAZEPAM 2 MG INJ IV SCH ×4 (05:45→23:40)
[2016-08-08] MEDS: HYDROMORPHONE IV SCH ×3 (05:46→22:18)
[2016-08-08] MEDS: SOD CHLORIDE 0.9% IV SCH ×3 (05:46→22:18)
[2016-08-08 07:30] VITALS: BP 133/59; RESP 18
[2016-08-08 20:51] VITALS: BP 125/57; RESP 18
--- NOTE | 2016-08-09 00:43 | PN ---
DATE: 08/08/2016 SUBJECTIVE: Follow up on respiratory failure, CVA, gangrene of the left leg, peripheral vascular di sease, diabetes, hypertension, and paroxysmal atrial fibrillation. The patient is looking much weak er now. The patient has intermittent episodes of tachypnea. No reported seizure. No reported blee ding from any site. The patient remains nonverbal. The patient has not had any G-tube feeding for the last several days. PHYSICAL EXAMINATION: VITAL SIGNS: Temperature 99.2, pulse 76, respirations 18, blood pressure 125/57, O2 saturation 98% on 6 liters. HEENT: No eye discharge or redness. Nose and ears normal. NECK: Tracheostomy in place. CHEST: Anteriorly revealed coarse breath sounds CARDIOVASCULAR: Sinus tachycardia. ABDOMEN: Soft, nondistended, nontender. EXTREMITIES: No edema. Left leg gangrene continues to get worse. NEUROLOGIC: The patient is nonverbal. IMPRESSION: 1. End-stage cerebrovascular accident. 2. Respiratory failure. 3. Diabetes. 4. Dysphagia. PLAN: Due to intermittent tachypneic episodes, patient's Dilaudid dose has been increased to 7.5 m g an hour. We will continue Ativan 1 mg q.6h. around the clock and q.2h. p.r.n. The patient contin ues to decline and looks weaker and pale. The plan of care discussed with the patient's daughter, malick giordano desk nurse, as well as [facility] nursing staff. The patient remains terminally ill and remains appropriate for [facility] level of care. Dictated By: JOSR PONCE/DENNIS Conf#: [id number] DID#: [id number]
[2016-08-09] MEDS: LORAZEPAM 2 MG INJ IV SCH ×4 (05:27→23:47)
[2016-08-09] MEDS: SOD CHLORIDE 0.9% IV SCH ×3 (05:41→21:03)
[2016-08-09] MEDS: HYDROMORPHONE IV SCH ×3 (05:41→21:03)
[2016-08-09 08:57] VITALS: BP 138/62; RESP 20
[2016-08-09 15:07] VITALS: BP 132/62; RESP 20
--- NOTE | 2016-08-09 16:25 | PN ---
DATE: 08/09/2016 SUBJECTIVE: Follow up on CVA, respiratory failure, diabetes, dysphagia and gangrene. The patient h as a regular respirations and shallow breathing. No reported temperature spike today. The patient did not have any abdominal distension, no reported seizures. Patient has intermittent chest congest ion. No reported bleeding from any site. No reported agitation. The patient's anxiety seems to be well controlled with IV Ativan around the clock and q.12 p.r.n. PHYSICAL EXAMINATION: GENERAL: The patient is lethargic. VITAL SIGNS: Temperature 97.6, pulse 93, respirations 20, blood pressure 132/62, O2 saturation 92%. HEENT: No eye discharge or redness. Nose and ears normal. NECK: No mass. Tracheostomy in place. CHEST: Coarse breath sounds anteriorly. CARDIOVASCULAR: Regular rate and rhythm. ABDOMEN: Soft, nondistended. EXTREMITIES: No edema. The patient's left leg looks darker in color, due to worsening gangrene. IMPRESSION: 1. Cerebrovascular accident. 2. Respiratory failure. 3. Paroxysmal atrial fibrillation. 4. Gangrene of the left leg. 5. Peripheral vascular disease. PLAN: 1. We will increase Dilaudid to 8.5 mg an hour. 2. Continue IV Ativan around the clock and q. 12 hours p.r.n. Continue breathing treatment. Plan of care discussed with the patient's daughter. We will continue to optimize comfort care. Dictated By: JOSR PONCE/DENNIS Conf#: [id number] DID#: [id number]
[2016-08-09 20:42] VITALS: BP 148/57; RESP 18
[2016-08-10] MEDS: SOD CHLORIDE 0.9% IV SCH ×3 (03:28→19:30)
[2016-08-10] MEDS: HYDROMORPHONE IV SCH ×3 (03:28→19:30)
[2016-08-10] MEDS: LORAZEPAM 2 MG INJ IV SCH ×3 (05:41→17:24)
[2016-08-10 09:16] VITALS: BP 127/58; PULSE 92; RESP 28
--- NOTE | 2016-08-10 18:14 | PN ---
DATE: 08/10/2016 SUBJECTIVE: Followup on end-stage CVA, diabetes, hypertension, peripheral vascular disease, histor y of vent-dependent respiratory failure. The patient had irregular breathing and also was tachypnei c and therefore, the dose of Dilaudid has been increased to 9 mg an hour. The patient did not have any fever or chills. No reported seizure. No reported vomiting. No reported bleeding from any sit e. PHYSICAL EXAMINATION: GENERAL: The patient is nonverbal. VITAL SIGNS: Temperature 97.5, pulse 92, respirations 28, blood pressure 127/58, O2 saturation 95% on 6 liters. HEENT: No eye discharge or redness. Nose and ears normal externally. NECK: Tracheostomy in place. CHEST: Diminished air entry at bases, few coarse breath sounds anteriorly. CARDIOVASCULAR: S1, S2 normal. No murmur. ABDOMEN: Soft, nondistended. EXTREMITIES: No edema. NEUROLOGIC: The patient is nonverbal. IMPRESSION: 1. End-stage cerebrovascular accident. 2. Respiratory failure. 3. Paroxysmal atrial fibrillation. 4. Gangrene of the left leg due to peripheral vascular disease. 5. Diabetes. PLAN: As mentioned above, the patient's Dilaudid dose has been increased to 9 mg an hour. We will also leave her tracheostomy to air. We will continue to optimize comfort care. Plan of care discus sed with the patient's nurse, Catarina. Continue IV Ativan around the clock for anxiety as well as IV Benadryl for itching. The patient remains terminally ill. Dictated By: JOSR PONCE/DENNIS Conf#: [id number] DID#: [id number]
[2016-08-10 20:48] VITALS: BP 83/48; RESP 18
--- NOTE | 2016-08-13 13:13 | DES ---
DATE OF ADMISSION: 07/26/2016 DATE OF : 08/10/2016 CAUSE OF : Respiratory failure due to end-stage cerebrovascular accident. OTHER DIAGNOSES: 1. Diabetes. 2. Hypertension. 3. Atherosclerotic heart disease. 4. Paroxysmal atrial fibrillation. 5. Dysphagia. 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 The patient since then had been bedridden. The patient also coul d not be weaned off of the vent and underwent tracheostomy and G-tube placement. The patient has rosas d multiple recent admissions due to respiratory failure due to pneumonia and also recently was diagn osed with severe peripheral vascular disease with left leg gangrene. The patient's health continued to decline and patient progressively became more noncommunicative and family decided to put her und er hospice care. HOSPITAL COURSE: The patient was admitted under hospice on 07/29/2016. The patient was started on IV morphine drip to provide comfort. The patient's family did not want ventilator support, which wa s discontinued. They also requested to discontinue G-tube feedings and to only provide comfort care . The patient was subsequently switched to IV Dilaudid since IV morphine was ineffective. The bebo ent's family was updated regarding plan of care. The patient continued to decline and on 08/10/2016 the patient was found to be unresponsive and had no respirations or heart sounds. The patient was pronounced at 2055 hours on 08/10/2016. The patient's was at bedside at that moment. The patient's hospitalization was under [facility] level of care. The patient's family was updated as well as the [facility] nurse and [facility] staff nurses. Dictated By: JOSR PONCE/DENNIS Conf#: [id number] DID#: [id number]
== END 2016-08-10 22:55 | disposition expired | DRG 308 ==
LOC: E/R 16:11 → TEL 17:55 → PP2 07-29 20:20
PROVIDERS: ADMIT Internal Medicine; ATTEND Internal Medicine
PROC: 5A1945Z Respiratory Ventilation, 24-96 Consecutive Hours (ICD-10-PCS; principal; 2016-07-26)
PROC: 5A2204Z Restoration of Cardiac Rhythm, Single (ICD-10-PCS; 2016-07-26)
DX: I47.2 Ventricular tachycardia (principal); J96.20 Acute and chronic respiratory failure, unspecified whether with hypoxia or hypercapnia; R57.0 Cardiogenic shock; I96 Gangrene, not elsewhere classified; Z93.0 Tracheostomy status; I95.9 Hypotension, unspecified; I69.954 Hemiplegia and hemiparesis following unspecified cerebrovascular disease affecting left non-dominant side; D64.9 Anemia, unspecified; E11.9 Type 2 diabetes mellitus without complications; Z93.1 Gastrostomy status; Z66 Do not resuscitate; Z74.01 Bed confinement status; I73.9 Peripheral vascular disease, unspecified; F41.9 Anxiety disorder, unspecified; Z86.718 Personal history of other venous thrombosis and embolism; Z86.711 Personal history of pulmonary embolism; Z79.4 Long term (current) use of insulin
CPT/HCPCS: 82550; 82553; 84484; 87070; 93005; 94002; 94003; 94640; 94664; 96372; J1200; J2060; J2270; J3010